=== PATIENT | female | born 1975 | race Caucasian/White ===

== ENCOUNTER 2017-11-18 22:15 | Emergency (ER) | payer SELFPAY ==
--- NOTE | 2017-11-18 23:12 | ER ---
Nurse's Notes [facility] Name: Britt Bower Age: 42 yrs Sex: Female : 1975 Arrival Date: 11/18/2017 Time: 22:23 Bed 15 Private MD: Diagnosis: Pain in lower leg;Vomiting, unspecified;Unspecified abdominal pain Presentation: 11/18 22:24 Presenting complaint: Patient states: R lower back and L leg pain since earlier today. aa1 States, "Earlier when I peed it felt like I got hit in my kidney with a board." Also reports vomiting earlier. Transition of care: patient was not received from another setting of care. Onset of symptoms was November 18, 2017. Initial Sepsis Screen: Does the patient meet any 2 criteria? No. Patient's initial sepsis screen is negative. Initial Sepsis Screen: Does the patient have a suspected source of infection? No. Patient's initial sepsis screen is negative. Care prior to arrival: None. 22:24 Method Of Arrival: Ambulatory aa1 22:24 Acuity: [facility] 3 aa1 Triage Assessment: 22:28 General: Appears in no apparent distress. comfortable, Behavior is calm, cooperative, aa1 appropriate for age. 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 for Neuropathic Pain [Active]; Humulin aa1 70/30 100 unit/mL (70-30) Sub-Q tab 10 units twice a day for Type 2 Diabetes Mellitus [Active]; levetiracetam 500 mg Oral tab 1 tab 2 times per day for Tonic-Clonic Epilepsy Treatment Adjunct [Active]; lisinopril-hydrochlorothiazide 20-25 mg Oral tab 1 tab once daily for Hypertension [Active]; - PMHx: 22:28 CVA; Diabetes - IDDM; E Coli Infection to Right Leg; High Cholesterol; Hypertension; aa1 neuropathy; Seizures; - PSHx: 22:28 Hysterectomy; ; Cholecystectomy; aa1 - Immunization history:: Flu vaccine is not up to date. - Social history:: Smoking status: Patient/guardian denies using tobacco. Screenin:20 Fall Risk Ambulatory [facility]-. mg2 23:38 Abuse screen: Denies threats or abuse. Nutritional screening: No deficits noted. mg2 Tuberculosis screening: No symptoms or risk factors identified. Assessment: 23:15 General: Appears in no apparent distress. comfortable. Pain: Complains of pain in right mg2 leg and left leg Pain does not radiate. Pain level that patient reports is acceptable is 3 out of 10 on a pain scale. Quality of pain is described as aching. Neuro: Level of Consciousness is awake, alert, Oriented to person, place, time. Cardiovascular: Capillary refill < 3 seconds Patient's skin is warm and dry. Respiratory: Airway is patent Respiratory effort is even, unlabored, Respiratory pattern is regular, symmetrical. GI: No signs and/or symptoms were reported involving the gastrointestinal system. : No signs and/or symptoms were reported regarding the genitourinary system. EENT: No signs and/or symptoms were reported regarding the EENT system. Musculoskeletal: Capillary refill < 3 seconds, tenderness. 23:15 Derm: Skin is pink, warm \\T\\ dry. normal. mg2 Vital Signs: 22:28 BP 109 / 83; Pulse 96; Resp 18; Temp 97.8; Pulse Ox 97% on R/A; Weight 96.16 kg; Height aa1 5 ft. 1 in. (154.94 cm); Pain 10/10; 22:28 Body Mass Index 40.06 (96.16 kg, 154.94 cm) aa1 ED Course: 22:23 Patient arrived in ED. aa1 22:26 Triage completed. aa1 22:28 Arm band placed on left wrist. Patient placed in waiting room, Patient notified of wait aa1 time. 23:00 Eryn Zhou FNP-C [facility]. snw 23:00 Dontae López MD is Attending Physician. snw 23:16 Rafi Cooney RN is Primary Nurse. mg2 23:20 Patient has correct armband on for positive identification. Bed in low position. Call mg2 light in reach. Side rails up X 1. 23:20 No provider procedures requiring assistance completed. mg2 23:20 Patient did not have IV access during this emergency room visit. mg2 Administered Medications: 23:20 Drug: Flexeril 10 mg Route: PO; mg2 23:35 Follow up: Response: No adverse reaction; Medication administered at discharge. mg2 23:20 Drug: Phenergan 25 mg Route: PO; mg2 23:35 Follow up: Response: No adverse reaction; Medication administered at discharge. mg2 Outcome: 23:11 Discharge ordered by MD. alegria 23:32 Discharged to home ambulatory, via wheelchair, with family. mg2 23:32 Condition: stable 23:32 Discharge instructions given to patient, family, Instructed on discharge instructions, follow up and referral plans. Demonstrated understanding of instructions, follow-up care, medications, Prescriptions given X 2. 23:35 Patient left the ED. mg2 Signatures: Laurita Miramontes RN RN aa1 Eryn Zhou, METAL FILER-C METAL FILER-Csnw Rafi Cooney RN RN mg2 Corrections: (The following items were deleted from the chart) 11/19 22:15 General: Appears in no apparent distress. comfortable, mg2 mg2 11/19 22:15 Pain: Complains of pain in right leg and left leg Pain does not radiate. mg2 Pain level that patient reports is acceptable is 3 out of 10 on a pain scale. Quality of pain is described as aching, mg2 11/19 22:15 Neuro: Level of Consciousness is awake, alert, Oriented to person, place, mg2 time, mg2 11/19 22:15 Cardiovascular: Capillary refill < 3 seconds Patient's skin is warm and mg2 dry. mg2 11/19 01:11/18 22:15 Respiratory: Airway is patent Respiratory effort is even, unlabored, mg2 Respiratory pattern is regular, symmetrical, mg2 11/19 22:15 GI: No signs and/or symptoms were reported involving the gastrointestinal mg2 system. mg2 11/19 22:15 : No signs and/or symptoms were reported regarding the genitourinary mg2 system. mg2 11/19 22:15 EENT: No signs and/or symptoms were reported regarding the EENT system. mg2 mg2 11/19 22:15 Derm: Skin is pink, warm \\T\\ dry. normal, mg2 mg2 11/19 02:27 11/18 22:15 Musculoskeletal: Capillary refill < 3 seconds, tenderness mg2 mg2
--- NOTE | 2017-11-18 23:12 | EDPHYS ---
Physician Documentation [facility] Name: Britt Bower Age: 42 yrs Sex: Female : 1975 Arrival Date: 11/18/2017 Time: 22:23 Bed 15 Private MD: ED Physician Dontae López HPI: 11/18 23:43 This 42 yrs old Female presents to ER via Ambulatory with complaints of Leg snw Pain, Back Pain. 23:43 The patient presents with swelling, tenderness. The complaints affect the left leg and snw right leg. Context: The problem was sustained at home, the patient can fully bear weight, the patient is able to ambulate, Problem is a result from a previous injury: No. Onset: The symptoms/episode began/occurred suddenly. Modifying factors: The symptoms are alleviated by nothing. Associated signs and symptoms: The patient has no apparent associated signs or symptoms. Treatment prior to arrival includes: recently saw PCP, increased doses of all medications except Lisinopril. Severity of symptoms: At their worst the symptoms were moderate, severe. The patient has experienced similar episodes in the past. The patient has been recently seen by a physician: the patient's primary care provider, with similar presenting complaints. 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 for Neuropathic Pain [Active]; Humulin aa1 70/30 100 unit/mL (70-30) Sub-Q tab 10 units twice a day for Type 2 Diabetes Mellitus [Active]; levetiracetam 500 mg Oral tab 1 tab 2 times per day for Tonic-Clonic Epilepsy Treatment Adjunct [Active]; lisinopril-hydrochlorothiazide 20-25 mg Oral tab 1 tab once daily for Hypertension [Active]; - PMHx: 22:28 CVA; Diabetes - IDDM; E Coli Infection to Right Leg; High Cholesterol; Hypertension; aa1 neuropathy; Seizures; - PSHx: 22:28 Hysterectomy; ; Cholecystectomy; aa1 - Immunization history:: Flu vaccine is not up to date. - Social history:: Smoking status: Patient/guardian denies using tobacco. ROS: 23:41 Constitutional: Negative for fever, chills, and weight loss, Eyes: Negative for injury, snw pain, redness, and discharge, ENT: Negative for injury, pain, and discharge, Neck: Negative for injury, pain, and swelling, Cardiovascular: Negative for chest pain, palpitations, and edema, Respiratory: Negative for shortness of breath, cough, wheezing, and pleuritic chest pain. 23:41 Back: Negative for injury and pain. 23:41 Abdomen/GI: Positive for nausea and vomiting. 23:41 : Positive for "feels like I was kicked in the crotch". 23:41 MS/extremity: Positive for swelling, of the right leg and left leg. Exam: 23:41 Constitutional: This is a well developed, well nourished patient who is awake, alert, snw and in no acute distress. Head/Face: Normocephalic, atraumatic. Eyes: Pupils equal round and reactive to light, extra-ocular motions intact. Lids and lashes normal. Conjunctiva and sclera are non-icteric and not injected. Cornea within normal limits. Periorbital areas with no swelling, redness, or edema. ENT: Nares patent. No nasal discharge, no septal abnormalities noted. Tympanic membranes are normal and external auditory canals are clear. Oropharynx with no redness, swelling, or masses, exudates, or evidence of obstruction, uvula midline. Mucous membranes moist. Neck: Trachea midline, no thyromegaly or masses palpated, and no cervical lymphadenopathy. Supple, full range of motion without nuchal rigidity, or vertebral point tenderness. No Meningismus. Chest/axilla: Normal chest wall appearance and motion. Nontender with no deformity. No lesions are appreciated. Cardiovascular: Regular rate and rhythm with a normal S1 and S2. No gallops, murmurs, or rubs. Normal PMI, no JVD. No pulse deficits. Respiratory: Lungs have equal breath sounds bilaterally, clear to auscultation and percussion. No rales, rhonchi or wheezes noted. No increased work of breathing, no retractions or nasal flaring. Abdomen/GI: Soft, non-tender, with normal bowel sounds. No distension or tympany. No guarding or rebound. No evidence of tenderness throughout. Back: No spinal tenderness. No costovertebral tenderness. Full range of motion. Skin: Warm, dry with normal turgor. Normal color with no rashes, no lesions, and no evidence of cellulitis. MS/ Extremity: Pulses equal, no cyanosis. Neurovascular intact. Full, normal range of motion. Neuro: Awake and alert, GCS 15, oriented to person, place, time, and situation. Cranial nerves II-XII grossly intact. Motor strength 5/5 in all extremities. Sensory grossly intact. Cerebellar exam normal. Normal gait. Vital Signs: 22:28 BP 109 / 83; Pulse 96; Resp 18; Temp 97.8; Pulse Ox 97% on R/A; Weight 96.16 kg; Height aa1 5 ft. 1 in. (154.94 cm); Pain 10/10; 22:28 Body Mass Index 40.06 (96.16 kg, 154.94 cm) aa1 MDM: 23:08 Patient medically screened. [facility] 23:42 Data reviewed: vital signs, nurses notes. Data interpreted: Pulse oximetry: on room air snw is 97 %. Interpretation: normal. Counseling: I had a detailed discussion with the patient and/or guardian regarding: the historical points, exam findings, and any diagnostic results supporting the discharge/admit diagnosis, the need for outpatient follow up, to return to the emergency department if symptoms worsen or persist or if there are any questions or concerns that arise at home. Special discussion: Based on the history and exam findings, there is no indication for further emergent testing or inpatient evaluation. I discussed with the patient/guardian the need to see the primary care provider for further evaluation of the symptoms. 23:46 ED course: Discussed with pt that Neurontin can cause pedal edema. . snw 11/18 22:40 Order name: Urine Dipstick--Ancillary (enter results); Complete Time: 23:35 rg2 Administered Medications: 23:20 Drug: Flexeril 10 mg Route: PO; mg2 23:35 Follow up: Response: No adverse reaction; Medication administered at discharge. mg2 23:20 Drug: Phenergan 25 mg Route: PO; mg2 23:35 Follow up: Response: No adverse reaction; Medication administered at discharge. mg2 Disposition: 11/19 08:19 Co-signature as Attending Physician, Dontae López MD I agree with the assessment and [facility] plan of care. Disposition: 11/18/17 23:11 Discharged to Home. Impression: Pain in lower leg, Vomiting, unspecified, Unspecified abdominal pain. - Condition is Stable. - Discharge Instructions: Abdominal Pain, Adult, Leg Cramps, Lumbosacral Radiculopathy, Nausea and Vomiting. - Prescriptions for Cyclobenzaprine 10 mg Oral Tablet - take 1 tablet by ORAL route every 8 hours As needed; 30 tablet. promethazine 25 mg Oral Tablet - take 1 tablet by ORAL route every 6 hours As needed; 20 tablet. - Medication Reconciliation Form, Thank You Letter, Antibiotic Education, Prescription Opioid Use, Work release form form. - Follow up: Private Physician; When: 2 - 3 days; Reason: Recheck today's complaints, Continuance of care, Re-evaluation by your physician. Follow up: Emergency Department; When: As needed; Reason: Worsening of condition. Signatures: Dispatcher [employer] EDLaurita Lara, RN RN aa1 Dontae López MD MD cha Therrien, Shelly, CASE MONITOR-C CASE MONITOR-Csnw Rafi Cooney RN RN mg2 Corrections: (The following items were deleted from the chart) 11/18 23:35 23:11 11/18/2017 23:11 Discharged to Home. Impression: Pain in lower leg; Vomiting, mg2 unspecified; Unspecified abdominal pain. Condition is Stable. Forms are Medication Reconciliation Form, Thank You Letter, Antibiotic Education, Prescription Opioid Use. Follow up: Private Physician; When: 2 - 3 days; Reason: Recheck today's complaints, Continuance of care, Re-evaluation by your physician. Follow up: Emergency Department; When: As needed; Reason: Worsening of condition. snw
[2017-11-18] MEDS ORDERED: CYCLOBENZAPRINE 10 MG TAB ONE (23:18)
[2017-11-18] MEDS ORDERED: PROMETHAZINE 25 MG TABLET ONE (23:19)
[2017-11-18 23:28] LABS: Urine Blood NEGATIVE (NEG); Urine Glucose NEGATIVE (NEG); Urine Protein NEGATIVE (NEG)
[2017-11-18 23:42] VITALS: BP 109/83; TEMP 97.8; O2SAT 97
== END 2017-11-18 23:35 | disposition home or self-care (01) ==
LOC: ER 22:15
DX: M79.605 Pain in left leg (principal); R10.9 Unspecified abdominal pain; R11.10 Vomiting, unspecified; E11.9 Type 2 diabetes mellitus without complications; I10 Essential (primary) hypertension; Z88.0 Allergy status to penicillin; Z88.6 Allergy status to analgesic agent; Z91.09 Other allergy status, other than to drugs and biological substances; Z88.1 Allergy status to other antibiotic agents
CPT/HCPCS: 81003; 99283

== ENCOUNTER 2017-11-28 18:36 | Emergency (ER) | payer SELFPAY ==
--- OUTSIDE RECORDS SUMMARY | 2017-11-28 18:39 | XMS REPORT ---
:1975 Author Organization [employer] Care Team Providers Name Role Phone Jackelyn Hunt Provider Role Unavailable Allergies, Adverse Reactions, Alerts Substance Reaction Event Type penicillin anaphylaxis Drug Allergy Zofran anaphylaxis Drug Allergy Iodine anaphylaxis Drug Allergy Diazepam anaphylaxis Drug Allergy Aspirin anaphylaxis Drug Allergy Problems Problem Type Condition Code Onset Dates Condition Status Assessment Epilepsy G40.909 Active Problem Secondary diabetes with peripheral E13.42 Active neuropathy Assessment Dysuria R30.0 Active Assessment Secondary diabetes with peripheral E13.42 Active neuropathy Assessment Diabetes type 2, controlled E11.9 Active Problem Diabetes type 2, controlled E11.9 Active Problem Mixed hyperlipidemia E78.2 Active Problem Morbid obesity E66.01 Active Problem Other specified diabetes mellitus E13.42 Active with diabetic polyneuropathy Problem Ulcerative colitis K51.90 Active Problem Epilepsy G40.909 Active Problem Accelerated essential hypertension I10 Active Medications Medication Code Code Instructions Start End Status Dosage System Date Date ProAir HFA [facility] [id number] 108 (90 Base) Jul 26, Active 2 puffs as MCG/ACT 2018 needed Inhalation every 6 hrs Keppra ND 25913266582 500 MG Orally Aug 17, Active 2 tablets every 12 hrs 2018 HumuLIN 70/30 ND 09654099074 (70-30) 100 Jul 26, Active 10 units KwikPen UNIT/ML 2016 Subcutaneous bid Flonase ND 96500641561 50 MCG/ACT Jul 26, Active 2 spray in Nasally Once a 2017 each day nostril Bentyl ND 09081508761 20 MG Orally November 21, Active 1 tablet Four times a 2018 day Gabapentin ND 01918497050 300 MG Orally Jul 26, Active 2 capsule Three times a 2018 before day bedtime Zestoretic ND 30182095441 20-25 MG Orally Jul 26, Active 1 tablet Once a day 2016 Promethazine HCl ND 78290429354 50 MG Orally November 21, Active 1 tablet every 6 hrs 2016 as needed Tylenol # 3 NDC 0 300/30mg PO November 21, Active 1-2 tabs every 6 hrs. 2018 Results Name Result Date Reference Range Unit Abnormality Flag URINALYSIS AUTO W/O SCOPE ([id number]) ----NIT N 20171113 ----URO 0.2 20171113 ----PROTEIN 1+ 20171113 ----pH 5.5 20171113 ----BLO N 20171113 ----GLUCOSE N 20171113 ----ALBERTO N 20171113 ----BILIRUBIN 1+ 20171113 ----KETONES N 20171113 ----SPECIFIC GRAVITY >=1.030 20171113 Summary Purpose [employer] Submission
[2017-11-28 20:13] LABS: Urine Blood NEGATIVE (NEG); Urine Glucose NEGATIVE (NEG); Urine Protein NEGATIVE (NEG); Urine Specific Gravity 1.015 (1.005-1.030); Urine pH 5.5 (5.0-7.0)
[2017-11-28 20:26] LABS: Urine RBC <5 /HPF (NONE SEEN)
[2017-11-28] MEDS ORDERED: PROMETHAZINE HCL 50 MG/ML AMP IM ONE (20:26)
[2017-11-28 20:27] LABS: Urine Bacteria 20-50 /HPF (<20); Urine Culture Reflex Order NOT NEEDED
--- NOTE | 2017-11-28 20:40 | EDPHYS ---
Physician Documentation [facility] Name: Britt Bower Age: 42 yrs Sex: Female : 1975 Arrival Date: 11/28/2017 Time: 18:39 Bed 13 Private MD: ED Physician Niki Chiu HPI: 11/28 21:18 This 42 yrs old Female presents to ER via Ambulatory with complaints of snw Vomiting, Headache. 21:18 The patient presents to the emergency department with nausea. Onset: The snw symptoms/episode began/occurred acutely. Possible causes: unknown, pt states she had a "small seizure" last pm. The symptoms are aggravated by nothing. Associated signs and symptoms: The patient has no apparent associated signs or symptoms. Severity of symptoms: At their worst the symptoms were mild. The patient has experienced similar episodes in the past. It is unknown whether or not the patient has recently seen a physician. 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 for Neuropathic Pain [Active]; Humulin ao 70/30 100 unit/mL (70-30) Sub-Q tab 10 units twice a day for Type 2 Diabetes Mellitus [Active]; lisinopril-hydrochlorothiazide 20-25 mg Oral tab 1 tab once daily for Hypertension [Active]; levetiracetam 500 mg Oral tab 1 tab 2 times per day for Tonic-Clonic Epilepsy Treatment Adjunct [Active]; - PMHx: 18:45 CVA; E Coli Infection to Right Leg; Diabetes - IDDM; High Cholesterol; Hypertension; la1 neuropathy; Seizures; - Immunization history:: Adult Immunizations up to date. - Social history:: Smoking status: Patient/guardian denies using tobacco. ROS: 21:18 Constitutional: Negative for fever, chills, and weight loss, Eyes: Negative for injury, snw pain, redness, and discharge, ENT: Negative for injury, pain, and discharge, Neck: Negative for injury, pain, and swelling, Cardiovascular: Negative for chest pain, palpitations, and edema, Respiratory: Negative for shortness of breath, cough, wheezing, and pleuritic chest pain, Abdomen/GI: Negative for abdominal pain, nausea, vomiting, diarrhea, and constipation, Back: Negative for injury and pain, : Negative for injury, bleeding, discharge, and swelling, MS/Extremity: Negative for injury and deformity, Skin: Negative for injury, rash, and discoloration. 21:18 Neuro: Positive for headache. Exam: 21:18 Constitutional: This is a well developed, well nourished patient who is awake, alert, snw and in no acute distress. Head/Face: Normocephalic, atraumatic. Eyes: Pupils equal round and reactive to light, extra-ocular motions intact. Lids and lashes normal. Conjunctiva and sclera are non-icteric and not injected. Cornea within normal limits. Periorbital areas with no swelling, redness, or edema. ENT: Nares patent. No nasal discharge, no septal abnormalities noted. Tympanic membranes are normal and external auditory canals are clear. Oropharynx with no redness, swelling, or masses, exudates, or evidence of obstruction, uvula midline. Mucous membranes moist. Neck: Trachea midline, no thyromegaly or masses palpated, and no cervical lymphadenopathy. Supple, full range of motion without nuchal rigidity, or vertebral point tenderness. No Meningismus. Chest/axilla: Normal chest wall appearance and motion. Nontender with no deformity. No lesions are appreciated. Cardiovascular: Regular rate and rhythm with a normal S1 and S2. No gallops, murmurs, or rubs. Normal PMI, no JVD. No pulse deficits. Respiratory: Lungs have equal breath sounds bilaterally, clear to auscultation and percussion. No rales, rhonchi or wheezes noted. No increased work of breathing, no retractions or nasal flaring. Abdomen/GI: Soft, non-tender, with normal bowel sounds. No distension or tympany. No guarding or rebound. No evidence of tenderness throughout. Back: No spinal tenderness. No costovertebral tenderness. Full range of motion. Skin: Warm, dry with normal turgor. Normal color with no rashes, no lesions, and no evidence of cellulitis. MS/ Extremity: Pulses equal, no cyanosis. Neurovascular intact. Full, normal range of motion. Neuro: Awake and alert, GCS 15, oriented to person, place, time, and situation. Cranial nerves II-XII grossly intact. Motor strength 5/5 in all extremities. Sensory grossly intact. Cerebellar exam normal. Normal gait. Vital Signs: 18:45 BP 119 / 71; Pulse 84; Resp 16; Temp 97.3; Pulse Ox 100% on R/A; Weight 96.16 kg; la1 Height 5 ft. 4 in. (162.56 cm); 20:32 BP 103 / 77; Pulse 67; Resp 18; Pulse Ox 98% on R/A; ao 21:03 BP 94 / 58; Pulse 66; Resp 18; Pulse Ox 99% on R/A; ao 18:45 Body Mass Index 36.39 (96.16 kg, 162.56 cm) la1 MDM: 19:24 Patient medically screened. snw 21:19 Data reviewed: vital signs, nurses notes. Data interpreted: Pulse oximetry: on room air snw is 99 %. Interpretation: normal. Counseling: I had a detailed discussion with the patient and/or guardian regarding: the historical points, exam findings, and any diagnostic results supporting the discharge/admit diagnosis, lab results, the need for outpatient follow up, to return to the emergency department if symptoms worsen or persist or if there are any questions or concerns that arise at home. Special discussion: Based on the history and exam findings, there is no indication for further emergent testing or inpatient evaluation. I discussed with the patient/guardian the need to see the primary care provider for further evaluation of the symptoms. 11/28 19:41 Order name: Urine Culture [facility] 11/28 19:41 Order name: Urine Microscopic Only; Complete Time: 20:38 [facility] 11/28 19:52 Order name: Urine Dipstick--Ancillary (enter results) [facility] 11/28 19:52 Order name: Urine --Ancillary (enter results) [facility] 11/28 19:54 Order name: Urine Dipstick-Ancillary; Complete Time: 20:21 [facility] 11/28 19:54 Order name: Urine --Ancillary; Complete Time: 20:21 [facility] 11/28 19:41 Order name: Urine Test (obtain specimen); Complete Time: 19:49 snw 11/28 19:41 Order name: Urine Dipstick-Ancillary (obtain specimen); Complete Time: 19:49 snw Administered Medications: 20:31 Drug: Phenergan 25 mg Route: IM; Site: right deltoid; ao 21:02 Follow up: Response: No adverse reaction ao 21:01 Drug: Macrobid 100 mg Route: PO; ao 21:02 Follow up: Response: Medication administered at discharge. ao 21:01 Drug: Cipro 500 mg Route: PO; ao 21:02 Follow up: Response: Medication administered at discharge. ao Disposition: 11/29 01:53 Co-signature as Attending Physician, Niki Chiu MD. ma2 Disposition: 11/28/17 20:39 Discharged to Home. Impression: Headache, Urinary tract infection, site not specified. - Condition is Stable. - Discharge Instructions: General Headache Without Cause, Urinary Tract Infection. - Prescriptions for Macrobid 100 mg Oral Capsule - take 1 capsule by ORAL route every 12 hours for 10 days; 20 capsule. Cipro 500 mg Oral Tablet - take 1 tablet by ORAL route every 12 hours for 7 days; 14 tablet. promethazine 25 mg Oral Tablet - take 1 tablet by ORAL route every 6 hours As needed; 10 tablet. - Work release form, Medication Reconciliation Form, Thank You Letter, Antibiotic Education, Prescription Opioid Use form. - Follow up: Private Physician; When: 2 - 3 days; Reason: Recheck today's complaints, Continuance of care, Re-evaluation by your physician. Follow up: Emergency Department; When: As needed; Reason: Worsening of condition. Signatures: Dispatcher [facility] Eryn Zhou, YI-C MANAGER ER-Csnw Leo Kirby RN RN Neptali Norwood RN Niki Ding MD MD ma2 Corrections: (The following items were deleted from the chart) 11/28 21:04 20:39 11/28/2017 20:39 Discharged to Home. Impression: Headache; Urinary tract ao infection, site not specified. Condition is Stable. Forms are Medication Reconciliation Form, Thank You Letter, Antibiotic Education, Prescription Opioid Use. Follow up: Private Physician; When: 2 - 3 days; Reason: Recheck today's complaints, Continuance of care, Re-evaluation by your physician. Follow up: Emergency Department; When: As needed; Reason: Worsening of condition. snw
--- NOTE | 2017-11-28 20:40 | ER ---
Nurse's Notes [facility] Name: Britt Bower Age: 42 yrs Sex: Female : 1975 Arrival Date: 11/28/2017 Time: 18:39 Bed 13 Private MD: Diagnosis: Headache;Urinary tract infection, site not specified Presentation: 11/28 18:44 Presenting complaint: Patient states: I had a light sz last night and since then I have la1 a very bad headache, nausea, vomiting. Transition of care: patient was not received from another setting of care. Onset of symptoms was November 28, 2017. Initial Sepsis Screen: Does the patient meet any 2 criteria? No. Patient's initial sepsis screen is negative. Does the patient have a suspected source of infection? No. Patient's initial sepsis screen is negative. Care prior to arrival: None. 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 for Neuropathic Pain [Active]; Humulin ao 70/30 100 unit/mL (70-30) Sub-Q tab 10 units twice a day for Type 2 Diabetes Mellitus [Active]; lisinopril-hydrochlorothiazide 20-25 mg Oral tab 1 tab once daily for Hypertension [Active]; levetiracetam 500 mg Oral tab 1 tab 2 times per day for Tonic-Clonic Epilepsy Treatment Adjunct [Active]; - PMHx: 18:45 CVA; E Coli Infection to Right Leg; Diabetes - IDDM; High Cholesterol; Hypertension; la1 neuropathy; Seizures; - Immunization history:: Adult Immunizations up to date. - Social history:: Smoking status: Patient/guardian denies using tobacco. Screenin:21 Abuse screen: Denies threats or abuse. Denies injuries from another. Nutritional ao screening: No deficits noted. Tuberculosis screening: No symptoms or risk factors identified. Fall Risk None identified. Assessment: 19:18 General: Appears in no apparent distress. comfortable, Behavior is cooperative. Pain: ao Complains of pain in abdomen. Neuro: Level of Consciousness is awake, alert, obeys commands, Oriented to person, place, time, situation, Contract Designer are equal bilaterally Moves all extremities. Speech is normal, Facial symmetry appears normal, Pupils are PERRLA. Neuro: Reports headache weakness Seizure activity last night. Cardiovascular: Capillary refill < 3 seconds Patient's skin is warm and dry. Respiratory: Airway is patent Respiratory effort is even, unlabored, Respiratory pattern is regular, symmetrical, Breath sounds are clear bilaterally. GI: Abdomen is obese, Bowel sounds present X 4 quads. : No signs and/or symptoms were reported regarding the genitourinary system. EENT: No signs and/or symptoms were reported regarding the EENT system. Derm: No signs and/or symptoms reported regarding the dermatologic system. Musculoskeletal: No signs and/or symptoms reported regarding the musculoskeletal system. 20:32 Reassessment: Patient appears in no apparent distress at this time. Patient and/or ao family updated on plan of care and expected duration. Pain level reassessed. Patient is alert, oriented x 3, equal unlabored respirations, skin warm/dry/pink. Vital Signs: 18:45 BP 119 / 71; Pulse 84; Resp 16; Temp 97.3; Pulse Ox 100% on R/A; Weight 96.16 kg; la1 Height 5 ft. 4 in. (162.56 cm); 20:32 BP 103 / 77; Pulse 67; Resp 18; Pulse Ox 98% on R/A; ao 21:03 BP 94 / 58; Pulse 66; Resp 18; Pulse Ox 99% on R/A; ao 18:45 Body Mass Index 36.39 (96.16 kg, 162.56 cm) la1 ED Course: 18:39 Patient arrived in ED. mr 18:45 Triage completed. la1 19:06 Neptali Meng, RN is Primary Nurse. ao 19:21 Arm band placed on right wrist. Patient placed in an exam room. ao 19:21 Patient has correct armband on for positive identification. Pulse ox on. NIBP on. ao 19:23 Eryn Zhou FNP-C is PHCP. snw 19:23 Niki Chiu MD is Attending Physician. snw 21:02 No provider procedures requiring assistance completed. Patient did not have IV access ao during this emergency room visit. Administered Medications: 20:31 Drug: Phenergan 25 mg Route: IM; Site: right deltoid; ao 21:02 Follow up: Response: No adverse reaction ao 21:01 Drug: Macrobid 100 mg Route: PO; ao 21:02 Follow up: Response: Medication administered at discharge. ao 21:01 Drug: Cipro 500 mg Route: PO; ao 21:02 Follow up: Response: Medication administered at discharge. ao Outcome: 20:39 Discharge ordered by . snw 21:03 Discharged to home ambulatory. ao 21:03 Condition: stable 21:03 Discharge instructions given to patient, Instructed on discharge instructions, follow up and referral plans. Demonstrated understanding of instructions, follow-up care, medications, Prescriptions given X 3. 21:04 Patient left the ED. ao Signatures: Eryn Zhou, MANAGER DRILLING-C MANAGER DRILLING-CsnJunie Nance Lee RN RN la1 Neptali Meng RN RN ao
[2017-11-28] MEDS ORDERED: CIPROFLOXACIN HCL 500 MG TAB ONE (20:53)
[2017-11-28] MEDS ORDERED: NITROFURAN MACRO 100 MG CAP PO ONE (20:53)
[2017-11-28 21:17] VITALS: TEMP 97.3
[2017-11-28 21:18] VITALS: BP 94/58; O2SAT 99
== END 2017-11-28 21:04 | disposition home or self-care (01) ==
LOC: ER 18:36
DX: N39.0 Urinary tract infection, site not specified (principal); I10 Essential (primary) hypertension; E11.9 Type 2 diabetes mellitus without complications; G40.909 Epilepsy, unspecified, not intractable, without status epilepticus; Z79.4 Long term (current) use of insulin; Z88.0 Allergy status to penicillin; Z88.1 Allergy status to other antibiotic agents; Z88.5 Allergy status to narcotic agent; Z88.6 Allergy status to analgesic agent; Z88.8 Allergy status to other drugs, medicaments and biological substances
CPT/HCPCS: 81003; 81015; 81025; 87086; 87088; 96372; 99283; J2550

== ENCOUNTER 2017-12-02 14:52 | Emergency (ER) | payer SELFPAY ==
--- OUTSIDE RECORDS SUMMARY | 2017-12-02 14:54 | XMS REPORT ---
[...] Status Dosage System Date Date ProAir HFA [facility] [id number] 108 (90 Base) Jul 26, Active 2 puffs as MCG/ACT 2018 needed Inhalation every 6 hrs Keppra ND 20293113100 500 MG Orally Aug 17, Active 2 tablets every 12 hrs 2018 HumuLIN 70/30 ND 92325916566 (70-30) 100 Jul 26, Active 10 units KwikPen UNIT/ML 2016 Subcutaneous bid Flonase ND 73048224660 50 MCG/ACT Jul 26, Active 2 spray in Nasally Once a 2017 each day nostril Bentyl ND 75204563545 20 MG Orally November 21, Active 1 tablet Four times a 2018 day Gabapentin ND 11400976603 300 MG Orally Jul 26, Active 2 capsule Three times a 2018 before day bedtime Zestoretic ND 40042761245 20-25 MG Orally Jul 26, Active 1 tablet Once a day 2016 Promethazine HCl ND 46479961036 50 MG Orally November 21, Active 1 tablet every 6 hrs 2016 as needed Tylenol # 3 NDC 0 300/30mg PO November 21, Active 1-2 tabs every 6 hrs. 2018 Results Name Result Date Reference Range Unit Abnormality Flag URINALYSIS AUTO W/O SCOPE (11632) ----NIT N 20171113 ----URO 0.2 20171113 ----PROTEIN 1+ 20171113 ----pH 5.5 20171113 ----BLO N 20171113 ----GLUCOSE N 20171113 ----ALBERTO N 20171113 ----BILIRUBIN 1+ 20171113 ----KETONES N 20171113 ----SPECIFIC GRAVITY >=1.030 20171113 Summary Purpose eClinicalWorks Submission
[2017-12-02 15:38] LABS: Urine Blood NEGATIVE (NEG); Urine Glucose NEGATIVE (NEG); Urine Protein NEGATIVE (NEG); Urine pH 5.5 (5.0-7.0)
[2017-12-02] MEDS ORDERED: HYDROCODONE/APAP 7.5/325 MG TAB ONE ×2 (15:48→16:38)
[2017-12-02] MEDS ORDERED: DIPHENHYDRAMINE 25 MG TAB/CAP ONE (17:03)
--- NOTE | 2017-12-02 17:57 | EDPHYS ---
Physician Documentation [facility] Name: Britt Bower Age: 42 yrs Sex: Female : 1975 Arrival Date: 12/02/2017 Time: 14:56 Bed 30 Private MD: CHARISSE CORDOBA ED Physician Adam Peterson HPI: 12/02 15:08 This 42 yrs old Female presents to ER via Ambulatory with complaints of Leg kav Pain, Foot Pain, Urinary Problem. 15:42 The patient presents with flank pain, on the left, urinary symptoms, frequency, urgency.kav 15:46 Onset: The symptoms/episode began/occurred acutely, 1 day(s) ago. Modifying factors: kav The symptoms are alleviated by nothing, the symptoms are aggravated by nothing. Severity of symptoms: At their worst the symptoms were severe, just prior to arrival, in the emergency department the symptoms are unchanged. The patient has experienced similar episodes in the past, chronically, and the symptoms today are exactly the same. patient c/o h/a rated at 8/10; ble swelling - no edema to bilateral lower extremities, pedal pulse 2+ bilaterally and no swelling bilaterally; also c/o urinary type sx: urgency and burning w/ associated left flank pain. denies hematuria, fever/chills, n/v/d. 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 for Neuropathic Pain [Active]; Humulin aj 70/30 100 unit/mL (70-30) Sub-Q tab 10 units twice a day for Type 2 Diabetes Mellitus [Active]; levetiracetam 500 mg Oral tab 1 tab 2 times per day for Tonic-Clonic Epilepsy Treatment Adjunct [Active]; lisinopril-hydrochlorothiazide 20-25 mg Oral tab 1 tab once daily for Hypertension [Active]; - PMHx: 15:07 CVA; Diabetes - IDDM; E Coli Infection to Right Leg; High Cholesterol; Hypertension; aj neuropathy; Seizures; - Immunization history:: Adult Immunizations up to date. - Social history:: Smoking status: Patient/guardian denies using tobacco. - History obtained from: . ROS: 15:46 Positive for urinary symptoms, burning with urination. kav 15:46 Constitutional: Negative for fever, chills, and weight loss, Eyes: Negative for injury, pain, redness, and discharge, ENT: Negative for injury, pain, and discharge, Neck: Negative for injury, pain, and swelling, Cardiovascular: Negative for chest pain, palpitations, and edema, Respiratory: Negative for shortness of breath, cough, wheezing, and pleuritic chest pain, Abdomen/GI: Negative for abdominal pain, nausea, vomiting, diarrhea, and constipation, Back: Negative for injury and pain, MS/Extremity: Negative for injury and deformity, Skin: Negative for injury, rash, and discoloration, Neuro: Negative for headache, weakness, numbness, tingling, and seizure, Psych: Negative for depression, anxiety, suicide ideation, homicidal ideation, and hallucinations, Allergy/Immunology: Negative for hives, rash, and allergies, Endocrine: Negative for neck swelling, polydipsia, polyuria, polyphagia, and marked weight changes, Hematologic/Lymphatic: Negative for swollen nodes, abnormal bleeding, and unusual bruising. Exam: 15:46 Constitutional: This is a well developed, well nourished patient who is awake, alert, kav and in no acute distress. Head/Face: Normocephalic, atraumatic. Eyes: Pupils equal round and reactive to light, extra-ocular motions intact. Lids and lashes normal. Conjunctiva and sclera are non-icteric and not injected. Cornea within normal limits. Periorbital areas with no swelling, redness, or edema. ENT: Nares patent. No nasal discharge, no septal abnormalities noted. Tympanic membranes are normal and external auditory canals are clear. Oropharynx with no redness, swelling, or masses, exudates, or evidence of obstruction, uvula midline. Mucous membranes moist. Neck: Trachea midline, no thyromegaly or masses palpated, and no cervical lymphadenopathy. Supple, full range of motion without nuchal rigidity, or vertebral point tenderness. No Meningismus. Chest/axilla: Normal chest wall appearance and motion. Nontender with no deformity. No lesions are appreciated. Cardiovascular: Regular rate and rhythm with a normal S1 and S2. No gallops, murmurs, or rubs. Normal PMI, no JVD. No pulse deficits. Respiratory: Lungs have equal breath sounds bilaterally, clear to auscultation and percussion. No rales, rhonchi or wheezes noted. No increased work of breathing, no retractions or nasal flaring. Abdomen/GI: Soft, non-tender, with normal bowel sounds. No distension or tympany. No guarding or rebound. No evidence of tenderness throughout. Back: No spinal tenderness. No costovertebral tenderness. Full range of motion. Skin: Warm, dry with normal turgor. Normal color with no rashes, no lesions, and no evidence of cellulitis. MS/ Extremity: Pulses equal, no cyanosis. Neurovascular intact. Full, normal range of motion. Neuro: Awake and alert, GCS 15, oriented to person, place, time, and situation. Cranial nerves II-XII grossly intact. Motor strength 5/5 in all extremities. Sensory grossly intact. Cerebellar exam normal. Normal gait. Psych: Awake, alert, with orientation to person, place and time. Behavior, mood, and affect are within normal limits. 15:46 : CVA tenderness, on the left. Vital Signs: 15:07 BP 111 / 80; Pulse 99; Resp 17; Temp 97.8; Pulse Ox 96% on R/A; Weight 96.16 kg; Height aj 5 ft. 1 in. (154.94 cm); 17:25 BP 100 / 68; Pulse 72; Resp 17; Pulse Ox 100% on R/A; rk2 18:00 BP 103 / 82; Pulse 78; Resp 17; Pulse Ox 98% on R/A; rk2 15:07 Body Mass Index 40.06 (96.16 kg, 154.94 cm) aj MDM: 15:10 Medical screening is not applicable. kav 15:51 Data reviewed: vital signs, nurses notes, lab test result(s), urinalysis. kav 16:35 ED course: pt continue to c/o headache pain rated at 7/10. kav 16:58 ED course: pt continues to c/o headache rated at 6/10. kav 17:55 ED course: c/o nausea. [facility] 12/02 15:18 Order name: Urine Dipstick--Ancillary (enter results); Complete Time: 15:54 em1 12/02 15:54 Interpretation: Abnormal. [facility] 12/02 15:18 Order name: Urine --Ancillary (enter results); Complete Time: 15:54 em1 12/02 15:54 Interpretation: Within normal limits. [facility] 12/02 15:09 Order name: Urine Dipstick-Ancillary (obtain specimen); Complete Time: 15:17 [facility] 12/02 15:18 Order name: Urine Test (obtain specimen); Complete Time: 15:18 em1 Administered Medications: 15:50 Drug: Halstad (7.5 mg-325 mg) 1 tabs Route: PO; rk2 17:48 Follow up: Response: No adverse reaction; Pain is unchanged, physician notified rk2 16:39 Drug: [place] (7.5 mg-325 mg) 1 tabs Route: PO; rk2 17:48 Follow up: Response: No adverse reaction; Pain is unchanged, physician notified rk2 17:05 Drug: Benadryl 50 mg Route: PO; rk2 17:47 Follow up: Response: No adverse reaction rk2 18:00 Drug: Phenergan 25 mg Route: PO; rk2 18:07 Follow up: given \T\ DC rk2 Disposition: 12/02/17 17:56 Discharged to Home. Impression: Urinary tract infection, site not specified, Headache. - Condition is Stable. - Discharge Instructions: Cluster Headache, Qzaf-[id number]-Luio, Urinary Tract Infection, [id number]-[id number], Antibiotic Use, Kosk-pk-Dtyb. - Prescriptions for Bactrim DS 800- 160 mg Oral Tablet - take 1 tablet by ORAL route every 12 hours for 10 days; 20 tablet. - Medication Reconciliation Form, Thank You Letter, Antibiotic Education, Prescription Opioid Use, Work release form form. - Follow up: CHARISSE CORDOBA; When: 1 - 2 days; Reason: Recheck today's complaints, Continuance of care, Re-evaluation by your physician. - Problem is new. - Symptoms are unchanged. - Notes: please schedule and f/u with your PCP DX: Urinary Tract Infection, Unspecified, Endocrinology DX: Uncontrolled Diabetes Mellitusand Neurology for DX: Headache please continue to take the rx: phenergan prescribed to you on 11/28/17 for nausea Addendum: 12/03/2017 22:23 Co-signature as Attending Physician, Adam Peterson MD I agree with the assessment and k dr plan of care. Signatures: Dispatcher [employer] Beverly, RN RN Adam Olivo MD MD kdr Gladys Kaur, JUNIOR SOFTWARE ENGINEER JUNIOR SOFTWARE ENGINEER Kisha Turner RN RN iw Mitchell Thakkar em1 Shaye Maldonado RN RN rk2 Corrections: (The following items were deleted from the chart) 12/02 18:10 17:56 12/02/2017 17:56 Discharged to Home. Impression: Urinary tract infection, site iw not specified; Headache. Condition is Stable. Discharge Instructions: Urinary Tract Infection, Vlxl-sy-Qvci, Antibiotic Use, Igcn-tb-Fjlf. Prescriptions for Bactrim DS 800-160 mg Oral Tablet - take 1 tablet by ORAL route every 12 hours for 10 days; 20 tablet. and Forms are Medication Reconciliation Form, Thank You Letter, Antibiotic Education, Prescription Opioid Use. Follow up: CHARISSE CORDOBA; When: 1 - 2 days; Reason: Recheck today's complaints, Continuance of care, Re-evaluation by your physician. Problem is new. Symptoms are unchanged. kav
--- NOTE | 2017-12-02 17:57 | ER ---
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 Also reports burning with urination, with ABX for 6 days. Transition of care: patient was not received from another setting of care. Onset of symptoms was December 02, 2017. Care prior to arrival: None. 15:05 Method Of Arrival: Ambulatory aj 15:05 Acuity: [facility] 4 aj 15:51 Initial Sepsis Screen: Does the patient meet any 2 criteria? No. Patient's initial rk2 sepsis screen is negative. Does the patient have a suspected source of infection? No. Patient's initial sepsis screen is negative. Triage Assessment: 15:07 General: Appears in no apparent distress. comfortable, Behavior is calm, cooperative, aj appropriate for age. Pain: Complains of pain in right martinez. Neuro: Level of Consciousness is awake, alert, obeys commands, Oriented to person, place, time, situation, Appropriate for age. Respiratory: Airway is patent Respiratory effort is even, unlabored, Respiratory pattern is regular, symmetrical. Derm: Skin is intact, is healthy with good turgor, Skin is pink, warm \\T\\ dry. normal, Bruising that is brown, on right martinez. Musculoskeletal: Circulation, motion, and sensation intact. Range of motion: intact in all extremities, Swelling absent. 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 for Neuropathic Pain [Active]; Humulin aj 70/30 100 unit/mL (70-30) Sub-Q tab 10 units twice a day for Type 2 Diabetes Mellitus [Active]; levetiracetam 500 mg Oral tab 1 tab 2 times per day for Tonic-Clonic Epilepsy Treatment Adjunct [Active]; lisinopril-hydrochlorothiazide 20-25 mg Oral tab 1 tab once daily for Hypertension [Active]; - PMHx: 15:07 CVA; Diabetes - IDDM; E Coli Infection to Right Leg; High Cholesterol; Hypertension; aj neuropathy; Seizures; - Immunization history:: Adult Immunizations up to date. - Social history:: Smoking status: Patient/guardian denies using tobacco. - History obtained from: . Screenin:51 Abuse screen: Denies threats or abuse. Nutritional screening: No deficits noted. rk2 Tuberculosis screening: No symptoms or risk factors identified. Fall Risk None identified. Assessment: 15:52 General: Appears in no apparent distress. well developed, well nourished, Behavior is rk2 calm, cooperative. Pain: Complains of pain in right leg and right martinez. Neuro: Level of Consciousness is alert, obeys commands, Oriented to person, place, time, situation. Respiratory: Airway is patent Respiratory effort is even, unlabored, Respiratory pattern is regular, symmetrical. Derm: Skin is pink, warm \\T\\ dry. Injury Description: Bruise sustained to right leg and right martinez. 16:30 Reassessment: Pt. resting in room, \\T\\ bedside. No change in her MONATNO. Pt. appears rk2 to be in no obvious distress. No needs voiced. 17:30 Reassessment: Pt. resting in room, appears to be in no obvious distress... no needs rk2 voiced. Pt. denies any change in her MONTANO \\T\\ this time. Vital Signs: 15:07 BP 111 / 80; Pulse 99; Resp 17; Temp 97.8; Pulse Ox 96% on R/A; Weight 96.16 kg; Height aj 5 ft. 1 in. (154.94 cm); 17:25 BP 100 / 68; Pulse 72; Resp 17; Pulse Ox 100% on R/A; rk2 18:00 BP 103 / 82; Pulse 78; Resp 17; Pulse Ox 98% on R/A; rk2 15:07 Body Mass Index 40.06 (96.16 kg, 154.94 cm) ED Course: 14:56 Patient arrived in ED. mr 14:56 CHARISSE CORDOBA is Private Physician. mr 15:06 Triage completed. aj 15:07 Arm band placed on left wrist. Patient placed in waiting room, Patient notified of wait aj time. 15:08 Gladys Kaur FNP [facility]. kav 15:08 Adam Peterson MD is Attending Physician. kav 15:09 Shaye Maldonado, MERRICK is Primary Nurse. rk2 15:51 Patient has correct armband on for positive identification. Placed in gown. Bed in low rk2 position. Call light in reach. 17:56 CHARISSE CORDOBA is Referral Physician. kav 18:13 No provider procedures requiring assistance completed. Patient did not have IV access rk2 during this emergency room visit. Administered Medications: 15:50 Drug: [place] (7.5 mg-325 mg) 1 tabs Route: PO; rk2 17:48 Follow up: Response: No adverse reaction; Pain is unchanged, physician notified rk2 16:39 Drug: [place] (7.5 mg-325 mg) 1 tabs Route: PO; rk2 17:48 Follow up: Response: No adverse reaction; Pain is unchanged, physician notified rk2 17:05 Drug: Benadryl 50 mg Route: PO; rk2 17:47 Follow up: Response: No adverse reaction rk2 18:00 Drug: Phenergan 25 mg Route: PO; rk2 18:07 Follow up: given \\T\\ DC rk2 Intake: Outcome: 17:56 Discharge ordered by MD. kav 18:10 Patient left the ED. iw 18:13 Discharged to home ambulatory. rk2 18:13 Condition: good 18:13 Discharge instructions given to patient, Prescriptions given X 1. Signatures: Pearl Malhotra, RN Gladys Cervantes FNP HOTEL AND DINING ROOM CASHIERJunie Bass mr Kisha Vela, MERRICK SIN iw Shaye Maldonado RN RN rk2
[2017-12-02] MEDS ORDERED: PROMETHAZINE 25 MG TABLET ONE (17:59)
[2017-12-02 18:18] VITALS: TEMP 97.8
[2017-12-02 18:20] VITALS: BP 100/68; O2SAT 100
== END 2017-12-02 18:10 | disposition home or self-care (01) ==
LOC: ER 14:52
DX: N39.0 Urinary tract infection, site not specified (principal); R51 Headache; Z88.1 Allergy status to other antibiotic agents; Z88.6 Allergy status to analgesic agent; Z91.09 Other allergy status, other than to drugs and biological substances; Z88.0 Allergy status to penicillin; I10 Essential (primary) hypertension; E78.00 Pure hypercholesterolemia, unspecified; E11.9 Type 2 diabetes mellitus without complications
CPT/HCPCS: 81003; 81025; 99283

== ENCOUNTER 2017-12-07 13:23 | Emergency (ER) | payer SELFPAY ==
--- OUTSIDE RECORDS SUMMARY | 2017-12-07 13:26 | XMS REPORT ---
[...] Status Dosage System Date Date ProAir HFA [facility] 20714834213 108 (90 Base) Jul 26, Active 2 puffs as MCG/ACT 2018 needed Inhalation every 6 hrs Keppra ND 45248770155 500 MG Orally Aug 17, Active 2 tablets every 12 hrs 2018 HumuLIN 70/30 ND 39430705398 (70-30) 100 Jul 26, Active 10 units KwikPen UNIT/ML 2016 Subcutaneous bid Flonase ND 17449483144 50 MCG/ACT Jul 26, Active 2 spray in Nasally Once a 2017 each day nostril Bentyl ND 86397367779 20 MG Orally November 21, Active 1 tablet Four times a 2018 day Gabapentin ND 05229270671 300 MG Orally Jul 26, Active 2 capsule Three times a 2018 before day bedtime Zestoretic ND 01196068008 20-25 MG Orally Jul 26, Active 1 tablet Once a day 2016 Promethazine HCl ND 05132739770 50 MG Orally November 21, Active 1 tablet every 6 hrs 2016 as needed Tylenol # 3 NDC 0 300/30mg PO November 21, Active 1-2 tabs every 6 hrs. 2018 Results Name Result Date Reference Range Unit Abnormality Flag URINALYSIS AUTO W/O SCOPE (58356) ----NIT N 20171113 ----URO 0.2 20171113 ----PROTEIN 1+ 20171113 ----pH 5.5 20171113 ----BLO N 20171113 ----GLUCOSE N 20171113 ----ALBERTO N 20171113 ----BILIRUBIN 1+ 20171113 ----KETONES N 20171113 ----SPECIFIC GRAVITY >=1.030 20171113 Summary Purpose eClinicalWorks Submission
--- NOTE | 2017-12-07 15:04 | RAD REPORT ---
EXAM DESCRIPTION: VAS - Extremity Venous Uni Ltd - 12/07/2017 2:54 pm CLINICAL HISTORY: Leg swelling and edema. COMPARISON: 03/10/2017 FINDINGS: Right lower extremity venous system was interrogated with Doppler technique. Normal flow, compressibility and augmentation was noted. There is no DVT present. IMPRESSION: No evidence of right lower extremity deep venous thrombosis.
--- NOTE | 2017-12-07 15:29 | EDPHYS ---
Physician Documentation [facility] Name: Britt Bower Age: 42 yrs Sex: Female : 1975 Arrival Date: 12/07/2017 Time: 13:26 Bed 19 Private MD: CHARISSE CORDOBA ED Physician Rm Gilbert HPI: 12/07 15:23 This 42 yrs old Female presents to ER via Ambulatory with complaints of BLOOD gs CLOT. 15:23 The patient presents with pain, that is acute. The complaints affect the right martinez. gs Onset: The symptoms/episode began/occurred 3 day(s) ago, and became persistent. Modifying factors: The symptoms are alleviated by nothing. the symptoms are aggravated by nothing. Associated signs and symptoms: Pertinent positives: calf tenderness, Pertinent negatives numbness. Severity of symptoms: At their worst the symptoms were moderate, in the emergency department the symptoms are unchanged. The patient has not experienced similar symptoms in the past. The patient has been recently seen by a physician: in the hospital. 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 - Social history:: Smoking status: Patient/guardian denies using tobacco. ROS: 15:23 Constitutional: Negative for fever. gs 15:23 Skin: Negative for cellulitis. 15:23 All other systems are negative. Exam: 15:23 Head/Face: Normocephalic, atraumatic. Eyes: Pupils equal round and reactive to light, gs extra-ocular motions intact. Lids and lashes normal. Conjunctiva and sclera are non-icteric and not injected. Cornea within normal limits. Periorbital areas with no swelling, redness, or edema. ENT: Nares patent. No nasal discharge, no septal abnormalities noted. Tympanic membranes are normal and external auditory canals are clear. Oropharynx with no redness, swelling, or masses, exudates, or evidence of obstruction, uvula midline. Mucous membranes moist. Neck: Trachea midline, no thyromegaly or masses palpated, and no cervical lymphadenopathy. Supple, full range of motion without nuchal rigidity, or vertebral point tenderness. No Meningismus. Chest/axilla: Normal chest wall appearance and motion. Nontender with no deformity. No lesions are appreciated. Cardiovascular: Regular rate and rhythm with a normal S1 and S2. No gallops, murmurs, or rubs. Normal PMI, no JVD. No pulse deficits. Respiratory: Lungs have equal breath sounds bilaterally, clear to auscultation and percussion. No rales, rhonchi or wheezes noted. No increased work of breathing, no retractions or nasal flaring. Abdomen/GI: Soft, non-tender, with normal bowel sounds. No distension or tympany. No guarding or rebound. No evidence of tenderness throughout. Back: No spinal tenderness. No costovertebral tenderness. Full range of motion. Skin: Warm, dry with normal turgor. Normal color with no rashes, no lesions, and no evidence of cellulitis. Neuro: Awake and alert, GCS 15, oriented to person, place, time, and situation. Cranial nerves II-XII grossly intact. Motor strength 5/5 in all extremities. Sensory grossly intact. Cerebellar exam normal. Normal gait. 15:23 Constitutional: The patient appears alert, awake. 15:23 Musculoskeletal/extremity: ROM: no acute changes, Circulation is intact in all extremities. DVT Exam: pain, that is mild, bluish discoloration, of the right leg, of the right martinez, 2x2 cm. Vital Signs: 13:34 BP 128 / 62; Pulse 85; Resp 14; Temp 97.5; Pulse Ox 97% on R/A; Weight 96.16 kg (R); lk1 Height 5 ft. 1 in. (154.94 cm); Pain 8/10; 14:30 BP 126 / 72; Pulse 76; Resp 16; Pulse Ox 98% on R/A; em 15:30 BP 132 / 76; Pulse 79; Resp 16; Pulse Ox 99% on R/A; em 13:34 Body Mass Index 40.06 (96.16 kg, 154.94 cm) lk1 MDM: 13:51 Patient medically screened. gs 15:23 Differential diagnosis: dvt,svt,cyst. Data reviewed: vital signs, nurses notes, and as gs a result, I will discharge patient. 12/07 13:59 Order name: US Extremity Venous Unilateral Ltd; Complete Time: 15:21 gs Administered Medications: No medications were administered Disposition: 12/07/17 15:29 Discharged to Home. Impression: Pain in limb, unspecified. - Condition is Stable. - Discharge Instructions: Musculoskeletal Pain. - Medication Reconciliation Form, Thank You Letter, Antibiotic Education, Prescription Opioid Use form. - Follow up: Private Physician; When: 2 - 3 days; Reason: Re-evaluation by your physician. Signatures: Dispatcher [employer] EDKem Fraire LVN LVN em Kluge, Leah, RN RN lk1 Rm Giblert MD MD Corrections: (The following items were deleted from the chart) 15:59 15:29 12/07/2017 15:29 Discharged to Home. Impression: Pain in limb, unspecified. em Condition is Stable. Forms are Medication Reconciliation Form, Thank You Letter, Antibiotic Education, Prescription Opioid Use. Follow up: Private Physician; When: 2 - 3 days; Reason: Re-evaluation by your physician. gs
--- NOTE | 2017-12-07 15:29 | ER ---
Nurse's Notes [facility] Name: Britt Bower Age: 42 yrs Sex: Female : 1975 Arrival Date: 12/07/2017 Time: 13:26 Bed 19 Private MD: CHARISSE CORDOBA Diagnosis: Pain in limb, unspecified Presentation: 12/07 13:30 Presenting complaint: Patient states: "I went to another ER and they said I have a clot lk1 in my leg. I can't get in to see my doctor soon, so they told me to come here make sure I am ok. I never hit my leg on anything. I took 8 Ibuprofen last night and I threw up this morning.". Transition of care: patient was not received from another setting of care. Onset of symptoms is unknown. Risk Assessment: Do you want to hurt yourself or someone else? Patient reports no desire to harm self or others. Initial Sepsis Screen: Does the patient meet any 2 criteria? No. Patient's initial sepsis screen is negative. Does the patient have a suspected source of infection? No. Patient's initial sepsis screen is negative. Care prior to arrival: None. 13:30 Method Of Arrival: Ambulatory lk1 13:30 Acuity: [facility] 3 lk1 Triage Assessment: 13:53 General: Appears. 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 - Social history:: Smoking status: Patient/guardian denies using tobacco. Screenin:52 Abuse screen: Denies threats or abuse. Nutritional screening: No deficits noted. em Tuberculosis screening: No symptoms or risk factors identified. Fall Risk None identified. Assessment: 13:47 General: Appears in no apparent distress. comfortable, Behavior is calm, cooperative. em Pain: Complains of pain in right martinez Pain currently is 8 out of 10 on a pain scale. Quality of pain is described as throbbing, Pain began 2-3 days ago. Neuro: Level of Consciousness is awake, alert, obeys commands, Oriented to person, place, time, situation. Cardiovascular: Capillary refill < 3 seconds Patient's skin is warm and dry. Cardiovascular: Denies chest pain, shortness of breath. Respiratory: Airway is patent Respiratory effort is even, unlabored, Respiratory pattern is regular, symmetrical. GI: Abdomen is round non-distended, Reports nausea, vomiting. : No signs and/or symptoms were reported regarding the genitourinary system. Derm: Skin is intact, Skin is pink, warm \\T\\ dry. Musculoskeletal: Range of motion: intact in all extremities. 14:00 Reassessment: I agree with above assessment by Kem Murillo LVN. iw 14:30 Reassessment: Patient appears in no apparent distress at this time. Patient and/or em family updated on plan of care and expected duration. Pain level reassessed. Patient is alert, oriented x 3, equal unlabored respirations, skin warm/dry/pink. 15:30 Reassessment: Patient appears in no apparent distress at this time. Patient and/or em family updated on plan of care and expected duration. Pain level reassessed. Patient is alert, oriented x 3, equal unlabored respirations, skin warm/dry/pink. Vital Signs: 13:34 BP 128 / 62; Pulse 85; Resp 14; Temp 97.5; Pulse Ox 97% on R/A; Weight 96.16 kg (R); lk1 Height 5 ft. 1 in. (154.94 cm); Pain 8/10; 14:30 BP 126 / 72; Pulse 76; Resp 16; Pulse Ox 98% on R/A; em 15:30 BP 132 / 76; Pulse 79; Resp 16; Pulse Ox 99% on R/A; em 13:34 Body Mass Index 40.06 (96.16 kg, 154.94 cm) lk1 ED Course: 13:26 Patient arrived in ED. rg4 13:26 CHARISSE CORDOBA is Private Physician. rg4 13:31 Triage completed. lk1 13:37 Arm band placed on right wrist. lk1 13:39 Rm Gilbert MD is Attending Physician. gs 13:48 Kem Murillo LVN is Primary Nurse. em 13:52 No provider procedures requiring assistance completed. em 13:53 Patient has correct armband on for positive identification. Bed in low position. Call em light in reach. Side rails up X 1. Adult w/ patient. 14:53 US Extremity Venous Unilateral Ltd In Process Unspecified. EDMS 15:58 Patient did not have IV access during this emergency room visit. em Administered Medications: No medications were administered Outcome: 15:29 Discharge ordered by MD. gs 15:58 Discharged to home ambulatory. em 15:58 Condition: good 15:58 Discharge instructions given to patient. 15:58 Discharge instructions given to Instructed on discharge instructions, follow up and referral plans. Demonstrated understanding of instructions, follow-up care. 15:59 Patient left the ED. em Signatures: Dispatcher [employer] [facility] Kem Murillo LVN ENGINEER/CONDUCTOR em Kisha Vela RN RN Katerina Florez RN RN Janice Ortez rg4 Rm Gilbert MD MD Corrections: (The following items were deleted from the chart) 13:32 13:30 Presenting complaint: Patient states: "I went to another ER and they said I have lk1 a clot in my leg. I can't get in to see my doctor soon, so they told me to come here make sure I am ok. I never hit my leg on anything." lk1
[2017-12-07 16:11] VITALS: TEMP 97.5
[2017-12-07 16:14] VITALS: BP 132/76; O2SAT 99
== END 2017-12-07 15:59 | disposition home or self-care (01) ==
LOC: ER 13:23
DX: M79.661 Pain in right lower leg (principal); I10 Essential (primary) hypertension; E11.9 Type 2 diabetes mellitus without complications; Z88.0 Allergy status to penicillin; Z88.5 Allergy status to narcotic agent; Z88.6 Allergy status to analgesic agent; Z88.8 Allergy status to other drugs, medicaments and biological substances; Z91.048 Other nonmedicinal substance allergy status
CPT/HCPCS: 93971; 99283

== ENCOUNTER 2018-03-01 18:24 | Emergency (ER) | payer SELFPAY ==
--- OUTSIDE RECORDS SUMMARY | 2018-03-01 18:27 | XMS REPORT ---
[...] Dosage System Date Date ProAir HFA [facility] 61176631421 108 (90 Base) Jul 26, Active 2 puffs as MCG/ACT 2018 needed Inhalation every 6 hrs Keppra ND 53746632110 500 MG Orally Aug 17, Active 2 tablets every 12 hrs 2018 HumuLIN 70/30 ND 90306360208 (70-30) 100 Jul 26, Active 10 units KwikPen UNIT/ML 2016 Subcutaneous bid Flonase ND 28855555234 50 MCG/ACT Jul 26, Active 2 spray in Nasally Once a 2017 each day nostril Bentyl ND 39964299856 20 MG Orally November 21, Active 1 tablet Four times a 2018 day Gabapentin ND 80994863583 300 MG Orally Jul 26, Active 2 capsule Three times a 2018 before day bedtime Zestoretic ND 53133997429 20-25 MG Orally Jul 26, Active 1 tablet Once a day 2016 Promethazine HCl ND 01829298266 50 MG Orally November 21, Active 1 tablet every 6 hrs 2016 as needed Tylenol # 3 NDC 0 300/30mg PO November 21, Active 1-2 tabs every 6 hrs. 2018 Results Name Result Date Reference Range Unit Abnormality Flag URINALYSIS AUTO W/O SCOPE (29047) ----NIT N 20171113 ----URO 0.2 20171113 ----PROTEIN 1+ 20171113 ----pH 5.5 20171113 ----BLO N 20171113 ----GLUCOSE N 20171113 ----ALBERTO N 20171113 ----BILIRUBIN 1+ 20171113 ----KETONES N 20171113 ----SPECIFIC GRAVITY >=1.030 20171113 Summary Purpose eClinicalWorks Submission
--- OUTSIDE RECORDS SUMMARY | 2018-03-01 18:27 | XMS REPORT ---
:1975 Author Organization eClinicalWorks Care Team Providers Name Role Phone Jackelyn Hunt Provider Role Unavailable Allergies No Known Allergies Problems Problem Type Condition Code Onset Dates Condition Status Problem Secondary diabetes with peripheral E13.42 Active neuropathy Problem Diabetes type 2, controlled E11.9 Active Problem Mixed hyperlipidemia E78.2 Active Problem Morbid obesity E66.01 Active Problem Other specified diabetes mellitus E13.42 Active with diabetic polyneuropathy Problem Ulcerative colitis K51.90 Active Problem Epilepsy G40.909 Active Problem Accelerated essential hypertension I10 Active Medications No Known Medications Results No Known Results Summary Purpose [employer] Submission
--- OUTSIDE RECORDS SUMMARY | 2018-03-01 18:27 | XMS REPORT ---
:1975 Author Organization eClinicalWorks Care Team Providers Name Role Phone Jackelyn Hunt Provider Role Unavailable Allergies, Adverse Reactions, Alerts Substance Reaction Event Type penicillin anaphylaxis Drug Allergy Zofran anaphylaxis Drug Allergy Iodine anaphylaxis Drug Allergy Diazepam anaphylaxis Drug Allergy Aspirin anaphylaxis Drug Allergy Problems Problem Type Condition Code Onset Dates Condition Status Assessment Dysuria R30.0 Active Problem Secondary diabetes with peripheral E13.42 Active neuropathy Assessment Diabetes type 2, controlled E11.9 Active Assessment Epilepsy G40.909 Active Assessment Accelerated essential hypertension I10 Active Problem Diabetes type 2, controlled E11.9 Active Problem Mixed hyperlipidemia E78.2 Active Problem Morbid obesity E66.01 Active Problem Other specified diabetes mellitus E13.42 Active with diabetic polyneuropathy Problem Ulcerative colitis K51.90 Active Problem Epilepsy G40.909 Active Problem Accelerated essential hypertension I10 Active Medications Medication Code Code Instructions Start End Status Dosage System Date Date Bentyl ND 52414353664 20 MG Orally November 21, Active 1 tablet Four times a 2018 day Tylenol # 3 NDC 0 300/30mg PO November 21, Active 1-2 tabs every 6 hrs. 2018 Flonase ND 35342628136 50 MCG/ACT Jul 26, Active 2 spray in Nasally Once a 2018 each day nostril Promethazine HCl ND 41885271473 50 MG Orally November 21, Active 1 tablet every 6 hrs 2016 as needed Gabapentin ND 86138422341 600 MG Orally Jul 26, Active 1 capsule Three times a 2018 day ProAir HFA ND 59624780714 108 (90 Base) Jul 26, Active 2 puffs as MCG/ACT 2018 needed Inhalation every 6 hrs Keppra ND 04956917123 500 MG Orally Active take two Twice a day -2 tablet(s) by mouth twice a day. Zestoretic ND 46744718884 20-25 MG Orally Jul 26, Active 1 tablet Once a day 2015 HumuLIN 70/30 ND 95493705250 (70-30) 100 Jul 26, Active 10 units KwikPen UNIT/ML 2016 Subcutaneous bid Results Name Result Date Reference Range Unit Abnormality Flag URINALYSIS AUTO W/O SCOPE (52330) ----NIT N [id number] ----URO 1.0 20180219 ----PROTEIN TR [id number] ----pH 5.5 20180219 ----BLO N [id number] ----GLUCOSE N 20180219 ----ALBERTO N [id number] ----BILIRUBIN N 20180219 ----KETONES N [id number] ----SPECIFIC GRAVITY 1.025 20180219 Summary Purpose eClinicalWorks Submission
--- NOTE | 2018-03-01 19:39 | EDPHYS ---
Physician Documentation [facility] Name: Britt Bower Age: 42 yrs Sex: Female : 1975 Arrival Date: 03/01/2018 Time: 18:26 Bed 24 Private MD: ED Physician Rm Gilbert HPI: 03/01 19:35 Associated signs and symptoms: Pertinent negatives: Altered mental status dysphagia, gs fever, hives, shortness of breath. Severity of symptoms: At their worst the symptoms were moderate. The patient has not experienced similar symptoms in the past. cc: facial rash burming. onset this am after washing face with new soap says has mild rash itching to face as well as burning sensation. 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 - Social history:: Smoking status: Patient/guardian denies using tobacco. - Ebola Screening: : No symptoms or risks identified at this time. ROS: 19:35 All other systems are negative. gs Exam: 19:35 Head/Face: Normocephalic, atraumatic. Eyes: Pupils equal round and reactive to light, gs extra-ocular motions intact. Lids and lashes normal. Conjunctiva and sclera are non-icteric and not injected. Cornea within normal limits. Periorbital areas with no swelling, redness, or edema. ENT: Nares patent. No nasal discharge, no septal abnormalities noted. Tympanic membranes are normal and external auditory canals are clear. Oropharynx with no redness, swelling, or masses, exudates, or evidence of obstruction, uvula midline. Mucous membranes moist. Neck: Trachea midline, no thyromegaly or masses palpated, and no cervical lymphadenopathy. Supple, full range of motion without nuchal rigidity, or vertebral point tenderness. No Meningismus. Chest/axilla: Normal chest wall appearance and motion. Nontender with no deformity. No lesions are appreciated. Cardiovascular: Regular rate and rhythm with a normal S1 and S2. No gallops, murmurs, or rubs. Normal PMI, no JVD. No pulse deficits. Respiratory: Lungs have equal breath sounds bilaterally, clear to auscultation and percussion. No rales, rhonchi or wheezes noted. No increased work of breathing, no retractions or nasal flaring. Abdomen/GI: Soft, non-tender, with normal bowel sounds. No distension or tympany. No guarding or rebound. No evidence of tenderness throughout. Back: No spinal tenderness. No costovertebral tenderness. Full range of motion. MS/ Extremity: Pulses equal, no cyanosis. Neurovascular intact. Full, normal range of motion. Neuro: Awake and alert, GCS 15, oriented to person, place, time, and situation. Cranial nerves II-XII grossly intact. Motor strength 5/5 in all extremities. Sensory grossly intact. Cerebellar exam normal. Normal gait. 19:35 Constitutional: The patient appears alert, awake. 19:35 Skin: rash can be described as mild erythema, on the right cheek and left cheek. Vital Signs: 18:52 BP 108 / 87; Pulse 97; Resp 18 S; Temp 97.0(O); Pulse Ox 97% on R/A; Weight 97.07 kg jl7 (R); Height 5 ft. 0 in. (152.40 cm) (R); Pain 8/10; 19:01 BP 113 / 80; Pulse 86; Resp 18; Pulse Ox 96% ; tl3 19:55 BP 124 / 81; Pulse 95; Resp 18; Pulse Ox 100% on R/A; tl3 18:52 Body Mass Index 41.79 (97.07 kg, 152.40 cm) jl7 MDM: 19:34 Patient medically screened. gs 19:35 Differential diagnosis: urticaria, allergy to soap. Data reviewed: vital signs, nurses gs notes. Response to treatment: the patient's symptoms have mildly improved after treatment, and as a result, I will discharge patient. Administered Medications: No medications were administered Disposition: 03/01/18 19:39 Discharged to Home. Impression: Allergy status to unspecified drugs, medicaments and biological substances status. - Condition is Stable. - Discharge Instructions: Allergies, Adult. - Prescriptions for Prednisone 20 mg Oral Tablet - take 1 tablet by ORAL route once daily for 5 days; 5 tablet. Zyrtec 10 mg Oral Tablet - take 1 tablet by ORAL route once daily As needed; 20 tablet. - Medication Reconciliation Form, Thank You Letter, Antibiotic Education, Prescription Opioid Use, Work release form form. - Follow up: Private Physician; When: 2 - 3 days; Reason: Re-evaluation by your physician. Signatures: Velvet Quiroga RN RN jl7 Rm Gilbert MD MD gs Rain Sandoval RN RN tl3 Corrections: (The following items were deleted from the chart) 19:57 19:39 03/01/2018 19:39 Discharged to Home. Impression: Allergy status to unspecified tl3 drugs, medicaments and biological substances status. Condition is Stable. Forms are Medication Reconciliation Form, Thank You Letter, Antibiotic Education, Prescription Opioid Use. Follow up: Private Physician; When: 2 - 3 days; Reason: Re-evaluation by your physician. gs
--- NOTE | 2018-03-01 19:39 | ER ---
Nurse's Notes [facility] Name: Britt Bower Age: 42 yrs Sex: Female : 1975 Arrival Date: 03/01/2018 Time: 18:26 Bed 24 Private MD: Diagnosis: Allergy status to unspecified drugs, medicaments and biological substances status Presentation: 03/01 18:49 Presenting complaint: Patient states: My face started feeling like it was on fire at 7 about 2 pm today. I don't know if it's an allergic reaction to something or what. Transition of care: patient was not received from another setting of care. Onset of symptoms was March 01, 2018 at 14:00. Risk Assessment: Do you want to hurt yourself or someone else? Patient reports no desire to harm self or others. Initial Sepsis Screen: Does the patient meet any 2 criteria? No. Patient's initial sepsis screen is negative. Does the patient have a suspected source of infection? No. Patient's initial sepsis screen is negative. Care prior to arrival: None. 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 - Social history:: Smoking status: Patient/guardian denies using tobacco. - Ebola Screening: : No symptoms or risks identified at this time. Screenin:05 Abuse screen: Denies threats or abuse. Nutritional screening: No deficits noted. tl3 Tuberculosis screening: No symptoms or risk factors identified. Fall Risk None identified. Assessment: 19:01 General: Appears in no apparent distress. uncomfortable, well groomed, well developed, tl3 well nourished, Behavior is calm, cooperative, appropriate for age. Pain: Complains of pain in face. Neuro: Level of Consciousness is awake, alert, obeys commands, Oriented to person, place, time, situation, Appropriate for age. Cardiovascular: Patient's skin is warm and dry. Respiratory: Airway is patent Respiratory effort is even, unlabored, Respiratory pattern is regular, symmetrical. GI: No signs and/or symptoms were reported involving the gastrointestinal system. : No signs and/or symptoms were reported regarding the genitourinary system. EENT: No signs and/or symptoms were reported regarding the EENT system. Derm: Rash noted that is red, on face. Musculoskeletal: No signs and/or symptoms reported regarding the musculoskeletal system. Injury Description: used some new soap two days ago, pt states that her face feels like it is on fire. 19:55 Reassessment: Patient appears in no apparent distress at this time. No changes from tl3 previously documented assessment. Patient and/or family updated on plan of care and expected duration. Pain level reassessed. Patient is alert, oriented x 3, equal unlabored respirations, skin warm/dry/pink. Vital Signs: 18:52 BP 108 / 87; Pulse 97; Resp 18 S; Temp 97.0(O); Pulse Ox 97% on R/A; Weight 97.07 kg jl7 (R); Height 5 ft. 0 in. (152.40 cm) (R); Pain 8/10; 19:01 BP 113 / 80; Pulse 86; Resp 18; Pulse Ox 96% ; tl3 19:55 BP 124 / 81; Pulse 95; Resp 18; Pulse Ox 100% on R/A; tl3 18:52 Body Mass Index 41.79 (97.07 kg, 152.40 cm) jl7 ED Course: 18:26 Patient arrived in ED. tw3 18:51 Triage completed. jl7 18:52 Arm band placed on right wrist. jl7 18:54 Rain Sandoval, MERRICK is Primary Nurse. tl3 19:03 Rm Gilbert MD is Attending Physician. gs 19:05 Patient has correct armband on for positive identification. Placed in gown. Bed in low tl3 position. Side rails up X 1. Pulse ox on. NIBP on. 19:05 No provider procedures requiring assistance completed. Patient did not have IV access tl3 during this emergency room visit. Administered Medications: No medications were administered Outcome: 19:39 Discharge ordered by . jose 19:55 Discharged to home ambulatory. tl3 19:55 Condition: good 19:55 Discharge instructions given to patient, Instructed on discharge instructions, follow up and referral plans. medication usage, Demonstrated understanding of instructions, follow-up care, medications, Prescriptions given X 2. 19:57 Patient left the ED. tl3 Signatures: Velvet Quiroga, RN RN jl7 Madan, Tia tw3 Rm Gilbert MD MD gs Lowrey, Tammy RN RN tl3
[2018-03-01 20:09] VITALS: TEMP 97
[2018-03-01 20:11] VITALS: BP 124/81; O2SAT 100
== END 2018-03-01 19:57 | disposition home or self-care (01) ==
LOC: ER 18:24
DX: R21 Rash and other nonspecific skin eruption (principal); I10 Essential (primary) hypertension; Z88.0 Allergy status to penicillin; Z88.1 Allergy status to other antibiotic agents; Z88.5 Allergy status to narcotic agent; Z88.6 Allergy status to analgesic agent; Z88.9 Allergy status to unspecified drugs, medicaments and biological substances; Z91.048 Other nonmedicinal substance allergy status
CPT/HCPCS: 99283

== ENCOUNTER 2018-04-06 22:06 | Emergency (ER) | payer SELFPAY ==
--- OUTSIDE RECORDS SUMMARY | 2018-04-06 22:08 | XMS REPORT ---
[...] Status Dosage System Date Date ProAir HFA [facility] [id number] 108 (90 Base) Jul 26, Active 2 puffs as MCG/ACT 2018 needed Inhalation every 6 hrs Keppra ND 23126115653 500 MG Orally Aug 17, Active 2 tablets every 12 hrs 2018 HumuLIN 70/30 ND 57135125984 (70-30) 100 Jul 26, Active 10 units KwikPen UNIT/ML 2016 Subcutaneous bid Flonase ND 71710242867 50 MCG/ACT Jul 26, Active 2 spray in Nasally Once a 2017 each day nostril Bentyl ND 15115833183 20 MG Orally November 21, Active 1 tablet Four times a 2018 day Gabapentin ND 43737663245 300 MG Orally Jul 26, Active 2 capsule Three times a 2018 before day bedtime Zestoretic ND 14715036966 20-25 MG Orally Jul 26, Active 1 tablet Once a day 2016 Promethazine HCl ND 02264401066 50 MG Orally November 21, Active 1 tablet every 6 hrs 2016 as needed Tylenol # 3 NDC 0 300/30mg PO November 21, Active 1-2 tabs every 6 hrs. 2018 Results Name Result Date Reference Range Unit Abnormality Flag URINALYSIS AUTO W/O SCOPE (52518) ----NIT N 20171113 ----URO 0.2 20171113 ----PROTEIN 1+ 20171113 ----pH 5.5 20171113 ----BLO N 20171113 ----GLUCOSE N 20171113 ----ALBERTO N 20171113 ----BILIRUBIN 1+ 20171113 ----KETONES N 20171113 ----SPECIFIC GRAVITY >=1.030 20171113 Summary Purpose [employer]Clinical[employer] Submission
--- OUTSIDE RECORDS SUMMARY | 2018-04-06 22:09 | XMS REPORT ---
[...] Status Dosage System Date Date Bentyl ND 91031843185 20 MG Orally November 21, Active 1 tablet Four times a 2018 day Tylenol # 3 NDC 0 300/30mg PO November 21, Active 1-2 tabs every 6 hrs. 2018 Flonase ND 68585170844 50 MCG/ACT Jul 26, Active 2 spray in Nasally Once a 2018 each day nostril Promethazine HCl ND 74010255725 50 MG Orally November 21, Active 1 tablet every 6 hrs 2016 as needed Gabapentin ND 63145069374 600 MG Orally Jul 26, Active 1 capsule Three times a 2018 day ProAir HFA ND 54199147616 108 (90 Base) Jul 26, Active 2 puffs as MCG/ACT 2018 needed Inhalation every 6 hrs Keppra ND 88126080732 500 MG Orally Active take two Twice a day -2 tablet(s) by mouth twice a day. Zestoretic ND 25800631675 20-25 MG Orally Jul 26, Active 1 tablet Once a day 2015 HumuLIN 70/30 ND 34036330899 (70-30) 100 Jul 26, Active 10 units KwikPen UNIT/ML 2016 Subcutaneous bid Results Name Result Date Reference Range Unit Abnormality Flag URINALYSIS AUTO W/O SCOPE (68288) ----NIT N [id number] ----URO 1.0 20180219 ----PROTEIN TR 20180219 ----pH 5.5 20180219 ----BLO N [id number] ----GLUCOSE N [id number] ----ALBERTO N [id number] ----BILIRUBIN N [id number] ----KETONES N [id number] ----SPECIFIC GRAVITY 1.025 20180219 Summary Purpose eClinicalWorks Submission
--- OUTSIDE RECORDS SUMMARY | 2018-04-06 22:09 | XMS REPORT ---
[...] Medications Results No Known Results Summary Purpose [employer] Submission
[2018-04-06] MEDS ORDERED: HYDROCODONE/APAP 5/325 MG TAB ONE (22:44)
[2018-04-06 22:46] LABS: Urine Blood NEGATIVE (NEG); Urine Glucose NEGATIVE (NEG); Urine Protein NEGATIVE (NEG); Urine pH 5.5 (5.0-7.0)
--- NOTE | 2018-04-07 00:51 | EDPHYS ---
Physician Documentation [facility] Name: Britt Bower Age: 42 yrs Sex: Female : 1975 Arrival Date: 04/06/2018 Time: 22:08 Bed 7 Private MD: BRO Physician Dontae López HPI: 04/06 23:00 This 42 yrs old Female presents to ER via Ambulatory with complaints of Right pm1 shoulder pain. 23:00 Onset: The symptoms/episode began/occurred 3 day(s) ago. Associated signs and pm1 symptoms:. Modifying factors: The patient symptoms are alleviated by remaining still, the patient symptoms are aggravated by Movement of right shoulder. Patient with pain tot right shoulder with lifting and rotating her right shoulder. 2 days ago the patient reported right leg pain and cramping that is no longer present. 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 for Neuropathic Pain [Active]; Humulin cc3 70/30 100 unit/mL (70-30) Sub-Q tab 5 units twice a day for Type 2 Diabetes Mellitus [Active]; levetiracetam 500 mg Oral tab 1 tab 4 times a day for Tonic-Clonic Epilepsy Treatment Adjunct [Active]; lisinopril-hydrochlorothiazide 20-25 mg Oral tab 1 tab once daily for Hypertension [Active]; flonace 2 puffs/day [Active]; Albuterol Inhl 2 puffs per day PRN [Active]; - PMHx: 22:30 Diabetes - IDDM; Hypertension; epilepsy; Asthma; neuropathy; history of stroke; cc3 - PSHx: 22:30 Cholecystectomy; Hysterectomy; cc3 - Immunization history:: Adult Immunizations not up to date. - Social history:: Smoking status: Patient/guardian denies using tobacco, never smoked. - Ebola Screening: : No symptoms or risks identified at this time. ROS: 23:00 Constitutional: Negative for fever, chills, and weight loss, Eyes: Negative for injury, pm1 pain, redness, and discharge, ENT: Negative for injury, pain, and discharge, Neck: Negative for injury, pain, and swelling, Cardiovascular: Negative for chest pain, palpitations, and edema, Respiratory: Negative for shortness of breath, cough, wheezing, and pleuritic chest pain, Abdomen/GI: Negative for abdominal pain, nausea, vomiting, diarrhea, and constipation, Back: Negative for injury and pain, : Negative for injury, bleeding, discharge, and swelling. 23:00 Skin: Negative for injury, rash, and discoloration. 23:00 MS/extremity: Positive for pain, of the anterior aspect of right shoulder and right axilla, Negative for deformity. 23:00 Neuro: Negative for numbness, tingling. Exam: 23:00 Constitutional: This is a well developed, well nourished patient who is awake, alert, pm1 and in no acute distress. Head/Face: Normocephalic, atraumatic. Eyes: Pupils equal round and reactive to light, extra-ocular motions intact. Lids and lashes normal. Conjunctiva and sclera are non-icteric and not injected. Cornea within normal limits. Periorbital areas with no swelling, redness, or edema. ENT: Nares patent. No nasal discharge, no septal abnormalities noted. Tympanic membranes are normal and external auditory canals are clear. Oropharynx with no redness, swelling, or masses, exudates, or evidence of obstruction, uvula midline. Mucous membranes moist. Neck: Trachea midline, no thyromegaly or masses palpated, and no cervical lymphadenopathy. Supple, full range of motion without nuchal rigidity, or vertebral point tenderness. No Meningismus. Chest/axilla: Normal chest wall appearance and motion. Nontender with no deformity. No lesions are appreciated. Cardiovascular: Regular rate and rhythm with a normal S1 and S2. No gallops, murmurs, or rubs. No pulse deficits. Respiratory: Lungs have equal breath sounds bilaterally, clear to auscultation and percussion. No rales, rhonchi or wheezes noted. No increased work of breathing, no retractions or nasal flaring. Abdomen/GI: Soft, non-tender, with normal bowel sounds. No distension or tympany. No guarding or rebound. No evidence of tenderness throughout. Back: No spinal tenderness. No costovertebral tenderness. Full range of motion. Skin: Warm, dry with normal turgor. Normal color with no rashes, no lesions, and no evidence of cellulitis. 23:00 Musculoskeletal/extremity: Extremities: grossly normal except: noted in the right axilla and anterior aspect of right shoulder, tenderness at supraspinatus insertion point, right axilla, and right lateral shoulder : Painful rotation passively , There is no evidence of decreased ROM, Circulation is intact in all extremities. the right arm Sensation intact. 23:00 Neuro: Orientation: is normal, Motor: is normal, moves all fours, strength is 5/5 in all extremities, Sensation: is normal, no obvious gross deficits, Gait: is steady, at a normal pace, without difficulty. Vital Signs: 22:30 BP 117 / 67; Pulse 71; Resp 18 S; Temp 98.2; Pulse Ox 97% on R/A; Pain 10/10; cc3 23:30 BP 107 / 66; Pulse 67; Resp 18 S; Pulse Ox 97% on R/A; cc3 04/07 00:35 BP 100 / 66; Pulse 65; Resp 19; Pulse Ox 97% on R/A; cc3 01:30 BP 104 / 67; Pulse 65; Resp 18 S; Pulse Ox 97% on R/A; cc3 MDM: 04/06 22:21 Patient medically screened. [facility] 04/07 00:04 Data reviewed: vital signs. Data interpreted: Pulse oximetry: on room air is 97 %. pm1 Interpretation: normal. 00:50 Counseling: I had a detailed discussion with the patient and/or guardian regarding: the pm1 historical points, exam findings, and any diagnostic results supporting the discharge/admit diagnosis, radiology results, the need for outpatient follow up, to return to the emergency department if symptoms worsen or persist or if there are any questions or concerns that arise at home. 04/06 22:37 Order name: Urine Dipstick--Ancillary (enter results); Complete Time: 22:53 mw2 04/06 22:37 Order name: Urine --Ancillary (enter results); Complete Time: 22:53 mw2 04/06 22:31 Order name: Shoulder Right (2 View) XRAY pm1 04/07 00:53 Order name: Sling; Complete Time: 01:53 pm1 Administered Medications: 04/06 22:35 Drug: [place] 5 mg-325 mg 1 tabs Route: PO; cc3 23:00 Follow up: Response: No adverse reaction; Pain is unchanged, physician notified cc3 Disposition: 04/07 06:50 Co-signature as Attending Physician, Dontae López MD I agree with the assessment and abebe plan of care. Disposition: 04/07/18 00:50 Discharged to Home. Impression: Pain in right shoulder. - Condition is Stable. - Discharge Instructions: Shoulder Pain, Shoulder Range of Motion Exercises, How to Use a Sling. - Prescriptions for Tylenol- Codeine #3 300-30 mg Oral Tablet - take 2 tablets by ORAL route every 6 hours As needed; 20 tablet. - Medication Reconciliation Form, Thank You Letter, Antibiotic Education, Prescription Opioid Use, Work release form form. - Follow up: Emergency Department; When: As needed; Reason: Worsening of condition. Follow up: Private Physician; When: 2 - 3 days; Reason: Recheck today's complaints, Continuance of care, Re-evaluation by your physician. - Problem is new. - Symptoms have improved. Signatures: Dispatcher [employer] [facility] Dontae López, Ralph Travis MD, cha, BUILDING ESTIMATOR BUILDING ESTIMATOR pm1 Johanna Rivera cc3 Corrections: (The following items were deleted from the chart) 01:53 00:50 04/07/2018 00:50 Discharged to Home. Impression: Pain in right shoulder. cc3 Condition is Stable. Forms are Medication Reconciliation Form, Thank You Letter, Antibiotic Education, Prescription Opioid Use. Follow up: Emergency Department; When: As needed; Reason: Worsening of condition. Follow up: Private Physician; When: 2 - 3 days; Reason: Recheck today's complaints, Continuance of care, Re-evaluation by your physician. Problem is new. Symptoms have improved. pm1
--- NOTE | 2018-04-07 00:51 | ER ---
Nurse's Notes [facility] Name: Britt Bower Age: 42 yrs Sex: Female : 1975 Arrival Date: 04/06/2018 Time: 22:08 Bed 7 Private MD: Diagnosis: Pain in right shoulder Presentation: 04/06 22:30 Presenting complaint: Patient states: right shoulder pain radiating to right flank and cc3 leg since 2 days. Transition of care: patient was not received from another setting of care. Onset of symptoms was April 04, 2018. Risk Assessment: Do you want to hurt yourself or someone else? Patient reports no desire to harm self or others. Initial Sepsis Screen: Does the patient meet any 2 criteria? No. Patient's initial sepsis screen is negative. Does the patient have a suspected source of infection? No. Patient's initial sepsis screen is negative. Care prior to arrival: None. 22:30 Method Of Arrival: Ambulatory cc3 22:30 Acuity: DUKE 4 cc3 Triage Assessment: 22:30 General: Appears in no apparent distress. comfortable, Behavior is calm, cooperative, cc3 appropriate for age. Pain: Complains of pain in right shoulder Pain radiates to right flank and right leg Pain currently is 10 out of 10 on a pain scale. Quality of pain is described as aching, Pain began 2-3 days ago. EENT: No signs and/or symptoms were reported regarding the EENT system. Neuro: Level of Consciousness is awake, alert, obeys commands, Oriented to person, place, time, situation, Appropriate for age. Cardiovascular: Denies chest pain. Respiratory: Airway is patent Respiratory effort is even, unlabored, Respiratory pattern is regular, symmetrical. GI: Abdomen is round obese. : No signs and/or symptoms were reported regarding the genitourinary system. Derm: No signs and/or symptoms reported regarding the dermatologic system. Musculoskeletal: Reports numbness in right leg pain in right shoulder, right flank and right leg since 2 days. 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 for Neuropathic Pain [Active]; Humulin cc3 70/30 100 unit/mL (70-30) Sub-Q tab 5 units twice a day for Type 2 Diabetes Mellitus [Active]; levetiracetam 500 mg Oral tab 1 tab 4 times a day for Tonic-Clonic Epilepsy Treatment Adjunct [Active]; lisinopril-hydrochlorothiazide 20-25 mg Oral tab 1 tab once daily for Hypertension [Active]; flonace 2 puffs/day [Active]; Albuterol Inhl 2 puffs per day PRN [Active]; - PMHx: 22:30 Diabetes - IDDM; Hypertension; epilepsy; Asthma; neuropathy; history of stroke; cc3 - PSHx: 22:30 Cholecystectomy; Hysterectomy; cc3 - Immunization history:: Adult Immunizations not up to date. - Social history:: Smoking status: Patient/guardian denies using tobacco, never smoked. - Ebola Screening: : No symptoms or risks identified at this time. Screenin:30 Abuse screen: Denies threats or abuse. Denies injuries from another. Nutritional cc3 screening: No deficits noted. Tuberculosis screening: No symptoms or risk factors identified. Fall Risk Ambulatory Aid- None/Bed Rest/Nurse Assist (0 pts). Gait- Normal/Bed Rest/Wheelchair (0 pts) Mental Status- Oriented to own ability (0 pts). Assessment: 22:35 Reassessment: see triage assessment. cc3 23:15 Reassessment: xray right shoulder done bedside by xray preparatory technician. cc3 23:30 Reassessment: Patient appears in no apparent distress at this time. No changes from cc3 previously documented assessment. Patient and/or family updated on plan of care and expected duration. Pain level reassessed. Patient is alert, oriented x 3, equal unlabored respirations, skin warm/dry/pink. 04/07 00:30 Reassessment: Patient appears in no apparent distress at this time. Patient and/or cc3 family updated on plan of care and expected duration. Pain level reassessed. Patient is alert, oriented x 3, equal unlabored respirations, skin warm/dry/pink. 01:30 Reassessment: Patient appears in no apparent distress at this time. Patient and/or cc3 family updated on plan of care and expected duration. Pain level reassessed. Patient is alert, oriented x 3, equal unlabored respirations, skin warm/dry/pink. right arm sling applied. 01:45 Reassessment: Patient discharged home with prescription, discharge instructions and cc3 sling form given. No IV cannula in situ. Patient left ER vitally stable and ambulatory. Vital Signs: 04/06 22:30 BP 117 / 67; Pulse 71; Resp 18 S; Temp 98.2; Pulse Ox 97% on R/A; Pain 10/10; cc3 23:30 BP 107 / 66; Pulse 67; Resp 18 S; Pulse Ox 97% on R/A; cc3 04/07 00:35 BP 100 / 66; Pulse 65; Resp 19; Pulse Ox 97% on R/A; cc3 01:30 BP 104 / 67; Pulse 65; Resp 18 S; Pulse Ox 97% on R/A; cc3 ED Course: 04/06 22:08 Patient arrived in ED. es 22:17 Sotero Vaca, MERRICK is Primary Nurse. bp 22:21 Ralph White NP is PHCP. pm1 22:21 Dontae Lóepz MD is Attending Physician. pm1 22:30 Arm band placed on right wrist. cc3 22:30 Patient has correct armband on for positive identification. Bed in low position. Call cc3 light in reach. Adult w/ patient. 22:55 Triage completed. cc3 23:53 X-ray completed. Portable x-ray completed in exam room. Patient tolerated procedure kw well. 23:57 Shoulder Right (2 View) XRAY In Process Unspecified. EDMS 04/07 01:30 No provider procedures requiring assistance completed. Patient did not have IV access cc3 during this emergency room visit. 01:30 Sling \T\ swathe to right arm. cc3 Administered Medications: 04/06 22:35 Drug: Mobile 5 mg-325 mg 1 tabs Route: PO; cc3 23:00 Follow up: Response: No adverse reaction; Pain is unchanged, physician notified cc3 Outcome: 04/07 00:50 Discharge ordered by . pm1 01:30 Discharged to home ambulatory, with family. cc3 01:30 Condition: stable 01:30 Discharge instructions given to patient, family, Instructed on discharge instructions, follow up and referral plans. medication usage, Demonstrated understanding of instructions, follow-up care, medications, Prescriptions given X 1. 01:53 Patient left the ED. cc3 Signatures: Dispatcher [employer] EDAngela Fowler Kimberlee kw Marinas, Patrick, RECYCLING ASSISTANT RECYCLING ASSISTANT pm1 Sotero Vaca, RN RN bp Johanna Rivera cc3 Corrections: (The following items were deleted from the chart) 04/06 23:50 22:30 Pain: Complains of pain in right shoulder Pain radiates to right flank and right cc3 leg Pain currently is 8 out of 10 on a pain scale. Quality of pain is described as aching, Pain began 2-3 days ago. cc3 23:51 22:30 BP 117 / 67; Pulse 71bpm; Resp 18bpm; Spontaneous; Pulse Ox 97% RA; Temp 98.2F; cc3 Pain 8/10; cc3
[2018-04-07 02:04] VITALS: O2SAT 97
[2018-04-07 02:06] VITALS: TEMP 98.2
[2018-04-07 02:08] VITALS: BP 104/67
--- NOTE | 2018-04-07 14:04 | RAD REPORT ---
EXAM DESCRIPTION: Shoulder Right 2 View - 04/06/2018 11:58 pm CLINICAL HISTORY: Right shoulder pain COMPARISON: None. TECHNIQUE: Internal and external rotation views of the right shoulder were obtained. FINDINGS: There is no fracture or dislocation. AC joint is normal in appearance. No acute or suspici ous findings. IMPRESSION: Negative two-view right shoulder examination.
== END 2018-04-07 01:53 | disposition home or self-care (01) ==
LOC: ER 22:06
DX: M25.511 Pain in right shoulder (principal); J45.909 Unspecified asthma, uncomplicated; I10 Essential (primary) hypertension; E11.9 Type 2 diabetes mellitus without complications; Z88.0 Allergy status to penicillin; Z88.1 Allergy status to other antibiotic agents; Z88.6 Allergy status to analgesic agent; Z91.09 Other allergy status, other than to drugs and biological substances
CPT/HCPCS: 81003; 81025; 99284

== ENCOUNTER 2018-04-19 13:33 | Observation (INO) | payer SELFPAY ==
--- OUTSIDE RECORDS SUMMARY | 2018-04-19 13:37 | XMS REPORT ---
[...] Status Dosage System Date Date ProAir HFA [facility] 82873661581 108 (90 Base) Jul 26, Active 2 puffs as MCG/ACT 2018 needed Inhalation every 6 hrs Keppra ND 06244102939 500 MG Orally Aug 17, Active 2 tablets every 12 hrs 2018 HumuLIN 70/30 ND 67469550284 (70-30) 100 Jul 26, Active 10 units KwikPen UNIT/ML 2016 Subcutaneous bid Flonase ND 80936805504 50 MCG/ACT Jul 26, Active 2 spray in Nasally Once a 2017 each day nostril Bentyl ND 36332231115 20 MG Orally November 21, Active 1 tablet Four times a 2018 day Gabapentin ND 16752012476 300 MG Orally Jul 26, Active 2 capsule Three times a 2018 before day bedtime Zestoretic ND 17225834899 20-25 MG Orally Jul 26, Active 1 tablet Once a day 2016 Promethazine HCl ND 21435636627 50 MG Orally November 21, Active 1 tablet every 6 hrs 2016 as needed Tylenol # 3 NDC 0 300/30mg PO November 21, Active 1-2 tabs every 6 hrs. 2018 Results Name Result Date Reference Range Unit Abnormality Flag URINALYSIS AUTO W/O SCOPE (51392) ----NIT N 20171113 ----URO 0.2 20171113 ----PROTEIN 1+ 20171113 ----pH 5.5 20171113 ----BLO N 20171113 ----GLUCOSE N 20171113 ----ALBERTO N 20171113 ----BILIRUBIN 1+ 20171113 ----KETONES N 20171113 ----SPECIFIC GRAVITY >=1.030 20171113 Summary Purpose eClinicalWorks Submission
--- OUTSIDE RECORDS SUMMARY | 2018-04-19 13:37 | XMS REPORT ---
[...] Status Dosage System Date Date Bentyl ND 91367278744 20 MG Orally November 21, Active 1 tablet Four times a 2018 day Tylenol # 3 NDC 0 300/30mg PO November 21, Active 1-2 tabs every 6 hrs. 2018 Flonase ND 73644339059 50 MCG/ACT Jul 26, Active 2 spray in Nasally Once a 2018 each day nostril Promethazine HCl ND 54590047997 50 MG Orally November 21, Active 1 tablet every 6 hrs 2016 as needed Gabapentin ND 14424132758 600 MG Orally Jul 26, Active 1 capsule Three times a 2018 day ProAir HFA ND 28930236777 108 (90 Base) Jul 26, Active 2 puffs as MCG/ACT 2018 needed Inhalation every 6 hrs Keppra ND 77265063484 500 MG Orally Active take two Twice a day -2 tablet(s) by mouth twice a day. Zestoretic ND 63068584659 20-25 MG Orally Jul 26, Active 1 tablet Once a day 2015 HumuLIN 70/30 ND 53354936731 (70-30) 100 Jul 26, Active 10 units KwikPen UNIT/ML 2016 Subcutaneous bid Results Name Result Date Reference Range Unit Abnormality Flag URINALYSIS AUTO W/O SCOPE (11889) ----NIT N [id number] ----URO 1.0 20180219 ----PROTEIN TR 20180219 ----pH 5.5 20180219 ----BLO N 20180219 ----GLUCOSE N 20180219 ----ALBERTO N 20180219 ----BILIRUBIN N 20180219 ----KETONES N [id number] ----SPECIFIC GRAVITY 1.025 20180219 Summary Purpose eClinicalWorks Submission
--- OUTSIDE RECORDS SUMMARY | 2018-04-19 13:37 | XMS REPORT ---
[...] Medications Results No Known Results Summary Purpose 2 [employer] Submission
--- OUTSIDE RECORDS SUMMARY | 2018-04-19 13:37 | XMS REPORT ---
:1975 Author Organization eClinicalWorks Care Team Providers Name Role Phone Jackelyn Hunt Provider Role Unavailable Allergies, Adverse Reactions, Alerts Substance Reaction Event Type penicillin anaphylaxis Drug Allergy Zofran anaphylaxis Drug Allergy Iodine anaphylaxis Drug Allergy Diazepam anaphylaxis Drug Allergy Aspirin anaphylaxis Drug Allergy Problems Problem Type Condition Code Onset Dates Condition Status Assessment Otalgia of both ears H92.03 Active Problem Secondary diabetes with peripheral E13.42 Active neuropathy Assessment Acute pain of right shoulder M25.511 Active Problem Diabetes type 2, controlled E11.9 Active Problem Mixed hyperlipidemia E78.2 Active Problem Morbid obesity E66.01 Active Problem Other specified diabetes mellitus E13.42 Active with diabetic polyneuropathy Problem Ulcerative colitis K51.90 Active Problem Epilepsy G40.909 Active Problem Accelerated essential hypertension I10 Active Medications Medication Code Code Instructions Start End Status Dosage System Date Date HumuLIN 70/30 [facility] 07158893399 (70-30) 100 Jul 26, Active 10 units KwikPen UNIT/ML 2016 Subcutaneous bid ProAir HFA [facility] 31790812866 108 (90 Base) Jul 26, Active 2 puffs as MCG/ACT 2018 needed Inhalation every 6 hrs Keppra [facility] 22158476624 500 MG Orally Active take two Twice a day -2 tablet(s) by mouth twice a day. Gabapentin ND 50224910855 600 MG Orally Jul 26, Active 1 capsule Three times a 2018 day Zestoretic ND 41425020867 20-25 MG Orally Jul 26, Active 1 tablet Once a day 2015 Bentyl ND 13115571976 20 MG Orally November 21, Active 1 tablet Four times a 2018 day Tylenol # 3 NDC 0 300/30mg PO November 21, Active 1-2 tabs every 6 hrs. 2018 Promethazine HCl ND 08881752323 50 MG Orally November 21, Active 1 tablet every 6 hrs 2016 as needed Flonase NDC 44017090614 50 MCG/ACT Jul 26, Active 2 spray in Nasally Once a 2018 each day nostril Results No Known Results Summary Purpose eClinicalWorks Submission
--- NOTE | 2018-04-19 18:11 | RAD REPORT ---
EXAM DESCRIPTION: US - Follow Up Breast Axilla Ltd - 04/19/2018 5:44 pm CLINICAL HISTORY: Palpable mass, redness of the skin, history of breast abscesses FINDINGS: In the lower inner quadrant left breast area of concern there is a 2.5 x 1.8 x 0.6 area of diminished echogenicity. This is heterogeneous. Mass sits approximately 1 centimeter deep to the ski n surface. Abscess is the most likely etiology. IMPRESSION: Approximately 2.5 centimeter abscess lower inner quadrant left breast.
--- NOTE | 2018-04-19 18:20 | EDPHYS ---
Physician Documentation [facility] Name: Britt Bower Age: 42 yrs Sex: Female : 1975 Arrival Date: 04/19/2018 Time: 13:36 Bed 25 Private MD: CHARISSE CORDOBA ED Physician Mono Jordan HPI: 04/19 17:11 This 42 yrs old Female presents to ER via Ambulatory with complaints of rn Breast Problem. 17:11 Reports left breast redness/swelling, began suddenly today, no trauma, woke up fine rn without skin changes, not sure if bitten, no fever. . Onset: The symptoms/episode began/occurred today. Severity of symptoms: At their worst the symptoms were mild in the emergency department the symptoms are unchanged. The patient has not experienced similar symptoms in the past. The patient has not recently seen a physician. Historical: - Allergies: 13:57 Amoxicillin; hb 13:57 Aspirin; hb 13:57 Iodine; hb 13:57 Morphine; hb 13:57 PENICILLINS; hb 13:57 Zofran; hb - Home Meds: 20:37 Albuterol Inhl 2 puffs per day PRN [Active]; flonace 2 puffs/day [Active]; gabapentin rv 300 mg Oral cap 1 cap 2 times a day. for Neuropathic Pain [Active]; Humulin 70/30 100 unit/mL (70-30) Sub-Q tab 5 units twice a day for Type 2 Diabetes Mellitus [Active]; levetiracetam 500 mg Oral tab 1 tab 4 times a day for Tonic-Clonic Epilepsy Treatment Adjunct [Active]; lisinopril-hydrochlorothiazide 20-25 mg Oral tab 1 tab once daily for Hypertension [Active]; - PMHx: 20:37 Asthma; Diabetes - IDDM; epilepsy; history of stroke; Hypertension; neuropathy; rv - PSHx: 20:37 None; rv - Immunization history:: Adult Immunizations unknown. - Family history:: not pertinent. - Social history:: Smoking status: unknown. - Ebola Screening: : Patient negative for fever greater than or equal to 101.5 degrees Fahrenheit, and additional compatible Ebola Virus Disease symptoms Patient denies exposure to infectious person Patient denies travel to an Ebola-affected area in the 21 days before illness onset. - Hospitalizations: : No recent hospitalization is reported. ROS: 17:11 Constitutional: Negative for fever, chills, and weight loss, Skin: + left breast rn swelling and tenderness Exam: 17:11 Constitutional: This is a well developed, well nourished patient who is awake, alert, rn and in no acute distress. Chest/axilla: Left medial breast with mild erythema, + subcutaneous nodule, mild fluctuance, + small ecchymosis, total area approx 3-4 inches of irregular border. + mild tenderness. Vital Signs: 13:57 BP 144 / 89; Pulse 73; Resp 18; Temp 97.3; Pulse Ox 98% on R/A; Weight 96.16 kg; Height hb 5 ft. 0 in. (152.40 cm); Pain 9/10; 15:45 BP 148 / 96; Pulse 68; Resp 17; Pulse Ox 98% on R/A; mh5 17:55 BP 123 / 87; Pulse 65; Resp 18; Pulse Ox 99% on R/A; aj1 20:32 BP 129 / 90; Pulse 72; Pulse Ox 99% on R/A; rv 13:57 Body Mass Index 41.40 (96.16 kg, 152.40 cm) hb MDM: 16:30 Patient medically screened. rn 18:12 Differential Diagnosis abscess, phlegmon, cellulitis. Data reviewed: vital signs, rn nurses notes, lab test result(s), radiologic studies, ultrasound, and as a result, I will admit patient. Counseling: I had a detailed discussion with the patient and/or guardian regarding: the historical points, exam findings, and any diagnostic results supporting the discharge/admit diagnosis, lab results, radiology results, the need for further work-up and treatment in the hospital. Response to treatment: the patient's symptoms have mildly improved after treatment. Admission orders: after a detailed discussion of the patient's condition and case, the admit orders are written by me. ED course: Consulted Dr. Shaw, requests admit to hospitalist and npo after midnight, abx, and OR drainage tomorrow.. 04/19 17:21 Order name: CBC with Diff; Complete Time: 18:43 rn 04/19 17:21 Order name: Basic Metabolic Panel rn 04/19 17:08 Order name: Follow Up Breast Axilla Ltd; Complete Time: 18:18 EDMS 04/19 18:17 Order name: Blood Culture Adult (2) rn 04/19 18:15 Order name: EKG; Complete Time: 18:15 rn 04/19 18:15 Order name: EKG - Nurse/Tech; Complete Time: 18:49 rn 04/19 18:22 Order name: CONS Physician Consult EDLA 04/19 18:22 Order name: NPO EDLA 04/19 18:23 Order name: Accucheck; Complete Time: 18:38 rn Administered Medications: 20:29 Drug: Clindamycin 600 mg {Note: mid line, right upper arm.} Route: IVPB; Infused Over: rv 30 mins; Site: Other; 20:30 Follow up: IV Status: Infusion continued upon admission rv Point of Care Testing: Blood Glucose: 18:39 Blood Glucose: 83 mg/dL; aj1 Ranges: Critical Glucose Levels:Adult <50 mg/dl or >400 mg/dl <40 mg/dl or >180 mg/dl Disposition: 04/19/18 18:20 Hospitalization ordered by Samanta Villa for Observation. Preliminary diagnosis is Left breast abscess with cellulitis. - Bed requested for Telemetry/MedSurg (observation). - Status is Observation. rv - Condition is Stable. - Problem is new. - Symptoms have improved. UTI on Admission? No Signatures: Dispatcher [employer] [facility] Yesika Alejo RN RN Mono Jordan MD MD rn Baxter, Heather, Kemar Cabrera RN, RN RN rv Corrections: (The following items were deleted from the chart) 17:08 16:55 Extremity Nonvascular Limited ordered. [facility] 18:20 17:11 Constitutional: This is a well developed, well nourished patient who is awake, rn alert, and in no acute distress. Chest/axilla: Left medial breast with mild erythema, + subcutaneous nodule, no fluctuance, + small ecchymosis, total rio approx 3-4 inches of irregular border. + mild tenderness. rn 19:25 18:20 Hospitalization Ordered by Samanta Villa MD for Observation. Preliminary dw diagnosis is Left breast abscess with cellulitis. Bed requested for Telemetry/MedSurg (observation). Status is Observation. Condition is Stable. Problem is new. Symptoms have improved. UTI on Admission? No. rn 20:38 19:25 04/19/2018 18:20 Hospitalization Ordered by Samanta Villa MD for Observation. rv Preliminary diagnosis is Left breast abscess with cellulitis. Bed requested for Telemetry/MedSurg (observation). Status is Observation. Condition is Stable. Problem is new. Symptoms have improved. UTI on Admission? No. dw
--- NOTE | 2018-04-19 18:20 | ER ---
Nurse's Notes [facility] Name: Britt Bower Age: 42 yrs Sex: Female : 1975 Arrival Date: 04/19/2018 Time: 13:36 Bed 25 Private MD: CHARISSE CORDOBA Diagnosis: Left breast abscess with cellulitis Presentation: 04/19 13:53 Presenting complaint: Patient states: Left breast pain and swelling upon waking today. hb medial aspect of left breast is reddened and tender and patient states there is a knot on the breast. Transition of care: patient was not received from another setting of care. Onset of symptoms was April 19, 2018. Risk Assessment: Do you want to hurt yourself or someone else? Patient reports no desire to harm self or others. 13:53 Method Of Arrival: Ambulatory hb 13:53 Acuity: DUKE 3 hb 20:33 Initial Sepsis Screen: Does the patient meet any 2 criteria? No. Patient's initial rv sepsis screen is negative. Does the patient have a suspected source of infection? No. Patient's initial sepsis screen is negative. Care prior to arrival: None. Historical: - Allergies: 13:57 Amoxicillin; hb 13:57 Aspirin; hb 13:57 Iodine; hb 13:57 Morphine; hb 13:57 PENICILLINS; hb 13:57 Zofran; hb - Home Meds: 20:37 Albuterol Inhl 2 puffs per day PRN [Active]; flonace 2 puffs/day [Active]; gabapentin rv 300 mg Oral cap 1 cap 2 times a day. for Neuropathic Pain [Active]; Humulin 70/30 100 unit/mL (70-30) Sub-Q tab 5 units twice a day for Type 2 Diabetes Mellitus [Active]; levetiracetam 500 mg Oral tab 1 tab 4 times a day for Tonic-Clonic Epilepsy Treatment Adjunct [Active]; lisinopril-hydrochlorothiazide 20-25 mg Oral tab 1 tab once daily for Hypertension [Active]; - PMHx: 20:37 Asthma; Diabetes - IDDM; epilepsy; history of stroke; Hypertension; neuropathy; rv - PSHx: 20:37 None; rv - Immunization history:: Adult Immunizations unknown. - Family history:: not pertinent. - Social history:: Smoking status: unknown. - Ebola Screening: : Patient negative for fever greater than or equal to 101.5 degrees Fahrenheit, and additional compatible Ebola Virus Disease symptoms Patient denies exposure to infectious person Patient denies travel to an Ebola-affected area in the 21 days before illness onset. - Hospitalizations: : No recent hospitalization is reported. Screenin:37 Abuse screen: Denies threats or abuse. Denies injuries from another. Nutritional aj1 screening: No deficits noted. Tuberculosis screening: No symptoms or risk factors identified. 20:37 Fall Risk None identified. rv Assessment: 16:37 General: Appears in no apparent distress. uncomfortable, Behavior is calm, cooperative, aj1 appropriate for age. Pain: Complains of pain in left breast Pain does not radiate. Pain currently is 9 out of 10 on a pain scale. Neuro: Level of Consciousness is awake, alert, obeys commands. Cardiovascular: Patient's skin is warm and dry. Respiratory: Airway is patent Respiratory effort is even, unlabored, Respiratory pattern is regular, symmetrical. GI: No signs and/or symptoms were reported involving the gastrointestinal system. : No signs and/or symptoms were reported regarding the genitourinary system. EENT: No signs and/or symptoms were reported regarding the EENT system. Derm: left lower medial breast has an area that is dark red, with some blue bruising noted as well. Patient states that this area was not there last night, and denies any injury to the area. Musculoskeletal: No signs and/or symptoms reported regarding the musculoskeletal system. Circulation, motion, and sensation intact. 17:55 Reassessment: Patient appears in no apparent distress at this time. No changes from aj1 previously documented assessment. Patient and/or family updated on plan of care and expected duration. Pain level reassessed. Patient is alert, oriented x 3, equal unlabored respirations, skin warm/dry/pink. 18:39 Reassessment: Patient appears in no apparent distress at this time. No changes from aj1 previously documented assessment. Patient and/or family updated on plan of care and expected duration. Pain level reassessed. Patient is alert, oriented x 3, equal unlabored respirations, skin warm/dry/pink. Vital Signs: 13:57 BP 144 / 89; Pulse 73; Resp 18; Temp 97.3; Pulse Ox 98% on R/A; Weight 96.16 kg; Height hb 5 ft. 0 in. (152.40 cm); Pain 9/10; 15:45 BP 148 / 96; Pulse 68; Resp 17; Pulse Ox 98% on R/A; mh5 17:55 BP 123 / 87; Pulse 65; Resp 18; Pulse Ox 99% on R/A; aj1 20:32 BP 129 / 90; Pulse 72; Pulse Ox 99% on R/A; rv 13:57 Body Mass Index 41.40 (96.16 kg, 152.40 cm) hb ED Course: 13:36 Patient arrived in ED. sb2 13:37 CHARISSE CORDOBA is Private Physician. sb2 13:57 Triage completed. hb 13:57 Arm band placed on right wrist. Patient placed in waiting room. hb 16:30 Mono Jordan MD is Attending Physician. rn 16:37 Coreen Hernandez RN is Primary Nurse. aj1 16:37 Patient has correct armband on for positive identification. Bed in low position. Call aj1 light in reach. Side rails up X 1. 16:37 No provider procedures requiring assistance completed. aj1 17:45 Follow Up Breast [facility]illa Ltd In Process Unspecified. EDMS 18:00 Missed attempt(s): 24 gauge in left hand. Bleeding controlled, band aid applied, jp3 catheter tip intact. 18:10 Missed attempt(s): 24 gauge in left wrist. Bleeding controlled, band aid applied, jp3 catheter tip intact. 18:15 Missed attempt(s): 22 gauge in right antecubital area. Bleeding controlled, band aid aj1 applied, catheter tip intact. 18:19 Samanta Villa MD is Hospitalizing Provider. rn 18:30 Missed attempt(s): 24 gauge in right wrist. by Cindy Grimes, RN. Bleeding controlled, band aj1 aid applied, catheter tip intact. 18:35 Missed attempt(s): 24 gauge in left hand. by Cindy Grimes, RN. Bleeding controlled, band aj1 aid applied, catheter tip intact. 18:56 EKG done, by ED staff, reviewed by Mono Jordan MD. jp3 18:58 Placed in gown. Warm blanket given. Pillow given. Pulse ox on. NIBP on. jp3 19:45 Inserted 18 gauge 10 cm midline to right upper basilic vein on first attempt. Line with fc good blood return and flushes well. 20:37 Patient admitted, IV remains in place. intact. rv Administered Medications: 20:29 Drug: Clindamycin 600 mg {Note: mid line, right upper arm.} Route: IVPB; Infused Over: rv 30 mins; Site: Other; 20:30 Follow up: IV Status: Infusion continued upon admission rv Point of Care Testing: Blood Glucose: 18:39 Blood Glucose: 83 mg/dL; aj1 Ranges: Outcome: 18:20 Decision to Hospitalize by Provider. rn 20:35 Admitted to Med/surg accompanied by nurse, via wheelchair, room 206, with chart, Report rv called to CATHY SIN 20:35 Condition: good 20:35 Instructed on the need for admit. 20:38 Patient left the ED. rv Signatures: Dispatcher [employer] EDCoreen Valdez RN RN aj1 Megan Prakash RN RN Mono Andersen MD MD rn Baxter, Heather, RN RN hb Martinez, Maria 5 Iona Domingo 2 Kemar Brody RN RN rv Dustin Koenig jp3
[2018-04-19 18:39] LABS: Absolute Lymphocytes (CBC) 2.5 K/uL (0.7-4.9); Absolute Monocytes 0.5 K/uL (0.1-1.3); Absolute Neutrophil 4.2 K/uL (1.8-8.0); Basophils % 1.4 % (0-1.3); Eosinophils % 2.4 % (0-4.4); Hematocrit 37.7 % (36.0-45.0); Lymphocytes % 33.6 % (15.3-44.8); MCH 31.1 pg (27.0-35.0); MCV 88.3 fL (80-100); MPV 8.4 fL (7.6-11.3); Monocytes % 6.6 % (3.3-12.3); RBC Red Blood Cell Count 4.27 M/uL (3.86-4.86)
[2018-04-19 19:00] LABS: BUN Blood Urea Nitrogen 12 mg/dL (7-18); Bicarbonate 24 mmol/L (21-32); Glucose Level 94 mg/dL (74-106); Potassium 3.9 mmol/L (3.5-5.1); Sodium Level 142 mmol/L (136-145)
--- NOTE | 2018-04-19 19:38 | EKG ---
Test Date: 2018-04-19 Test Time: 18:50:42 House Player: ZOYA MEASUREMENT RESULTS: Intervals: Rate: 63 DC: 142 QRSD: 84 QT: 452 QTc: 462 [place]: P: 69 DC: 142 QRS: 17 T: 22 INTERPRETIVE STATEMENTS: Normal sinus rhythm Normal ECG Compared to ECG 09/28/2017 09:59:32 No significant changes Electronically Signed On 04-19-18 19:37:50 CDT by Benjamín Mendoza
--- NOTE | 2018-04-19 19:56 | P.HP ---
Certification for Inpatient Patient admitted to: Observation With expected LOS: <2 Midnights Practitioner: I am a practitioner with admitting privileges, knowledge of patient current condition, hospital course, and medical plan of care. Services: Services provided to patient in accordance with Admission requirements found in Title 42 Section 412.3 of the Code of Federal Regulations Patient History Date of Service: 04/19/18 Reason for admission: Left breast abscess History of Present Illness: Ms Bower is a 42-year-old woman with history of type 1 diabetes mellitus, hypertension, seizure disorder, previous infection with MRSA, who this morning woke up with tenderness on her left breast. She also noticed a redness discoloration. She denied any fever or chills. She denied also any trauma, or previous laceration in hair skin around of the affected area. She has never had this problem in the past. ER workup shows normal WBC count. She was afebrile at presentation. Breast ultrasound was remarkable for an approximately 2.5 centimeter abscess lower inner quadrant left breast. Allergies aspirin Allergy (Severe, Verified 01/29/17 17:04) Anaphylaxis iodine Allergy (Severe, Verified 01/29/17 17:04) Shortness of breath Penicillins Allergy (Severe, Verified 01/29/17 17:04) Anaphylaxis ondansetron HCl [From Zofran] Allergy (Intermediate, Verified 01/29/17 17:04) Hives diazepam [From Valium] Allergy (Mild, Verified 01/29/17 17:04) Itching amoxicillin Allergy (Unverified 11/18/17 23:40) Unknown morphine Allergy (Unverified 02/11/17 12:47) Unknown piperacillin sodium [From Zosyn] Adverse Reaction (Mild, Verified 01/29/17 17:04 ) Hives tazobactam sodium [From Zosyn] Adverse Reaction (Mild, Verified 01/29/17 17:04) Hives amoxici Allergy (Mild, Uncoded 03/10/17 09:09) Unknown A Allergy (Uncoded 02/20/17 10:08) Unknown amoxicil Allergy (Uncoded 02/23/17 21:24) Unknown amoxicilli Allergy (Uncoded 09/28/17 14:16) Unknown Amoxicillin Allergy (Uncoded 02/27/17 00:27) Unknown aspirin Allergy (Uncoded 01/29/17 17:04) THROAT SWELLS Doxycycline Allergy (Uncoded 01/29/17 17:04) Unknown iodine Allergy (Uncoded 01/29/17 17:04) Unknown IODINE; IODI Allergy (Uncoded 01/29/17 17:04) THROAT SWELL IODINE; IODINE CONTAINI Allergy (Uncoded 01/29/17 17:04) THROAT SWELL IODINE; IODINE CONTAININ Allergy (Uncoded 01/29/17 17:04) THROAT SWELL Piper Allergy (Uncoded 02/27/17 00:27) Unknown tazobacta Allergy (Uncoded 02/27/17 00:27) Unknown tazobactam s Allergy (Uncoded 09/28/17 14:16) Unknown tazobactam sodium Allergy (Uncoded 11/18/17 23:40) Unknown Zofran Allergy (Uncoded 01/29/17 17:04) Unknown Home medications list reviewed: Yes Home Medications: Dicyclomine [Bentyl*] 20 mg PO Q6H 01/22/17 Gabapentin [Neurontin*] 600 mg PO BID 01/22/17 Hum Insulin NPH/Reg Insulin Hm [Humulin 70-30 Vial] See Protocol SQ BID Levetiracetam [Keppra] 1,000 mg PO BID 01/22/17 Promethazine HCl 50 mg PO Q6HP PRN 01/22/17 Lisinopril [Prinivil*] 5 mg PO DAILY #30 tab 01/27/17 - Past Medical/Surgical History Diabetic: Yes -: DM -: Osteoperosis -: TIA last May -: HTN -: Neuropathy -: Heart Murmur -: seizures -: Tubal -: Cholecystectomy -: Incision and Debridement -: Hysterectomy -: csection - Family History Mother -: Hypertension, Cancer Notes: brain ca Father -: Hypertension, Other (see notes) Notes: thyroid disease Brother -: Other (see notes) Notes: thyroid issues - Social History Smoking Status: Never smoker Alcohol use: No CD- Drugs: No Caffeine use: Yes Place of Residence: Home Review of Systems 10-point ROS is otherwise unremarkable Physical Examination - Physical Exam General: Alert, In no apparent distress HEENT: Atraumatic, PERRLA, Mucous membr. moist/pink, EOMI, Sclerae nonicteric Neck: Supple, 2+ carotid pulse no bruit, No LAD, Without JVD or thyroid abnormality Respiratory: Clear to auscultation bilaterally, Normal air movement Cardiovascular: Regular rate/rhythm, Normal S1 S2 Gastrointestinal: Normal bowel sounds, No tenderness Musculoskeletal: No tenderness Integumentary: No rashes Neurological: Normal gait, Normal speech, Normal strength at 5/5 x4 extr, Normal tone, Normal affect Lymphatics: No axilla or inguinal lymphadenopathy Female Exam - Breasts Breasts: Other (Erythematose, tender to palpation on the inner area of the left breast.) Assessment and Plan - Problems (Diagnosis) (1) Abscess Current Visit: Yes Status: Acute (2) Cellulitis Onset Date: 01/23/17 Current Visit: No Status: Acute Qualifiers: Site of cellulitis: other site Qualified Code(s): L03.818 - Cellulitis of other sites (3) Diabetes mellitus Onset Date: 01/23/17 Current Visit: No Status: Chronic Qualifiers: Diabetes mellitus type: type 1 Diabetes mellitus complication status: with unspecified complications Qualified Code(s): E10.8 - Type 1 diabetes mellitus with unspecified complications (4) Hypertension Current Visit: No Status: Chronic Qualifiers: Hypertension type: essential hypertension Qualified Code(s): I10 - Essential (primary) hypertension (5) Obesity Current Visit: No Status: Chronic Qualifiers: Obesity type: unspecified obesity type Qualified Code(s): E66.9 - Obesity, unspecified (6) Seizure disorder Onset Date: 01/23/17 Current Visit: No Status: Chronic - Plan The patient will be admitted to the hospital due to left breast cellulitis/ abscess. Will start empiric broad-spectrum antibiotic with IV vancomycin and aztreonam (patient is allergic to penicillin). Surgeon was consulted, and he will see the patient in the morning for I&D. - Advance Directives Does patient have a Living Will: No Does patient have a Durable POA for Healthcare: Yes - Code Status/Comfort Care Code Status Assessed: Yes Code Status: Full Code
[2018-04-19] MEDS ORDERED: CLINDAMYCIN 600MG/D5W 600 MG/50 ML BAG IV ONE (20:31)
[2018-04-19] MEDS ORDERED: ONDANSETRON 4 MG/2 ML VIAL IV PRN (20:44)
[2018-04-19] MEDS ORDERED: VANCOMYCIN 1.75 GM in NA CHLORIDE 0.9% 500 ML IVPB ONE (21:00)
[2018-04-19 21:04] VITALS: BMI 40.6
[2018-04-19] MEDS: VANCOMYCIN 1.75 GM in NA CHLORIDE 0.9% 500 ML IVPB SCH (22:00)
[2018-04-19] MEDS ORDERED: VANCOMYCIN 1 GM/VIAL ONE (22:39)
[2018-04-19] MEDS ORDERED: NA CHLORIDE 0.9% 500 ML ONE (22:39)
[2018-04-19] MEDS: NA CHLORIDE 0.9% 1,000 ML IV SCH (22:49)
[2018-04-19] MEDS: CODEINE 30MG/APAP 300MG TAB PO PRN (23:05)
[2018-04-19 23:19] LABS: Urine Appearance CLEAR; Urine Bilirubin NEGATIVE (NEG); Urine Blood NEGATIVE (NEG); Urine Color YELLOW; Urine Glucose NEGATIVE (NEG); Urine Protein NEGATIVE (NEG); Urine Specific Gravity 1.015 (1.005-1.030); Urine Urobilinogen 0.2 mg/dL (0.2-1.0)
[2018-04-19 23:25] LABS: Urine Microscopic Reflex NO UMIC
[2018-04-20] MEDS ORDERED: AZTREONAM 1 GM/VIAL IV SCH (01:00)
[2018-04-20] MEDS ORDERED: AZTREONAM 1 GM/VIAL ONE (01:17)
[2018-04-20] MEDS ORDERED: NA CHLORIDE 0.9% 50 ML ONE (01:19)
[2018-04-20] MEDS ORDERED: DIPHENHYDRAMINE 25 MG TAB/CAP PO PRN (01:44)
[2018-04-20] MEDS: AZTREONAM 1 GM/50 ML BAG IV SCH ×2 (02:30→09:00)
[2018-04-20 05:15] LABS: Absolute Lymphocytes (CBC) 1.7 K/uL (0.7-4.9); Absolute Monocytes 0.3 K/uL (0.1-1.3); Absolute Neutrophil 4.3 K/uL (1.8-8.0); Basophils % 0.4 % (0-1.3); Eosinophils % 1.8 % (0-4.4); Hematocrit 35.1 % (36.0-45.0); Lymphocytes % 26.6 % (15.3-44.8); MCH 31.7 pg (27.0-35.0); MCV 89.2 fL (80-100); MPV 8.2 fL (7.6-11.3); Monocytes % 5.2 % (3.3-12.3); RBC Red Blood Cell Count 3.93 M/uL (3.86-4.86)
[2018-04-20 05:36] LABS: Bilirubin Total 0.4 mg/dL (0.2-1.0); Potassium 3.5 mmol/L (3.5-5.1); Protein, Total 6.2 g/dL (6.4-8.2)
[2018-04-20] MEDS: INSULIN -REGULAR HUMAN 50 UNIT/0.5 ML ML SQ SCH ×5 (05:43→21:00)
[2018-04-20] MEDS: NA CHLORIDE 0.9% 1,000 ML IV SCH ×2 (05:43→16:30)
[2018-04-20] MEDS ORDERED: PNEUMOCOCCAL VACCINE 0.5 ML IMVAC ONE (06:00)
[2018-04-20] MEDS ORDERED: INFLUENZA VACCINE (for 3y+) 0.5 ML DOSE IMVAC ONE (06:00)
[2018-04-20] MEDS: Levofloxacin500mg IV 500 MG/100 ML BAG IV SCH (10:49)
[2018-04-20] MEDS ORDERED: MIDAZOLAM HCL 2 MG/2 ML INJ ONE (11:56)
[2018-04-20] MEDS ORDERED: PROPOFOL 200 MG/20 ML VIAL IV ONE (11:56)
[2018-04-20] MEDS ORDERED: FENTANYL CITR 100 MCG/2 ML ONE (11:57)
[2018-04-20] MEDS ORDERED: LIDOCAINE 2% MPF 5 ML VIAL ONE (11:57)
[2018-04-20] MEDS ORDERED: ONDANSETRON HCL 40 MG/20 ML VIAL ONE (11:59)
[2018-04-20] MEDS ORDERED: Ringers Lactate 1,000 ML IV ONE (13:04)
--- NOTE | 2018-04-20 13:04 | P.OP ---
Preoperative diagnosis: Left Breast Abscess Postoperative diagnosis: Hematoma Primary procedure: I and D Left Breast Hematoma Anesthesia: Gen Estimated blood loss: min Specimen: clots and breast tissue Findings: as above Complications: None Transferred to: Recovery Room Condition: Good
[2018-04-20] MEDS ORDERED: KETOROLAC 30 MG/ML INJ ONE (13:08)
[2018-04-20] MEDS: MEPERIDINE HCL 50 MG/ML AMP ONE ×4 (13:25→13:48)
[2018-04-20] MEDS: PROMETHAZINE 25 MG/ML VIAL ONE ×2 (13:34→13:48)
--- NOTE | 2018-04-20 14:05 | PREOPHP ---
Date of Admission: 04/19/2018 Reason: Left breast abscess. History Of Present Illness: The patient is a 42-year-old female with a previous history of MRSA infe ction in her axilla. She awoke yesterday morning with tenderness to her left breast. She noticed so me redness and discoloration. No fever or chills. No discharge. No history of trauma. She has nev er had a mammogram. No sore throat, runny nose, cough, headaches, or dizziness. No chest pain. Review of Systems: Otherwise unremarkable. Past Medical History: Significant for diabetes, osteoporosis, hypertension, neuropathy, seizures, TI A. Past Surgical History: Tubal surgery, cholecystectomy, incision and removal of axilla absc ess, hysterectomy, . Allergies: REVIEWED AND INCLUDE ZOFRAN, ZOSYN, TAZOBACTAM, IODINE, DOXYCYCLINE, ASPIRIN, AMOXICILLIN , DIAZEPAM, MORPHINE. Social History: She does not smoke. Denies drinking. Family History: Significant for brain cancer in the mother. Thyroid disease in the father and hyper tension. Physical Examination: Vital Signs: Stable. She is afebrile. General: She is awake, alert, and oriented x3. Head and Neck: Cranial nerves 2 through 12 grossly within normal limits. No neck masses. No JVD. Throat clear. Neck is supple. Chest: Clear. Heart: S1, S2. Abdomen: Soft. Extremities: Neurovascularly intact. Neuro: Nonfocal. Breast: On the left breast in the inner lower aspect of it, there is approximately a 4 cm area of re dness more like ecchymosis associated with it and next to it as well. There is a mass palpable under neath it, approximately 3 cm. Laboratory Data: White count is normal. There is no left shift. Glucose was slightly elevated at 1 07 on the electrolytes. She had ultrasound done of the left breast, which shows approximately 2.5 cm abscess lower inner quadrant of the left breast. Assessment: The patient has abscess in the left breast and may be a hematoma, I am not sure at this point. Recommendations: Admit, n.p.o., IV fluid, IV antibiotic, to the OR for incision and drainage of a le ft breast mass. The patient understands the risks, benefits, and alternatives and agrees to procedur e. Please note, should there be abnormal tissue present, we will need to biopsy it and once her woun ds healed, the patient will need a bilateral mammogram. Plan of care discussed in detail with the neetu becerril. NANY/VIOLA Voice ID: [id number]
--- NOTE | 2018-04-20 15:38 | OP ---
Date of Procedure: 04/20/2018 Surgeon: Clayton Shaw MD Preoperative Diagnosis: Left breast mass. Postoperative Diagnosis: Left breast hematoma. Procedure Performed: Incision and drainage of left breast hematoma. Estimated Blood Loss: Minimal. Specimen: Hematoma and tissue surrounding it. Findings: Above. Anesthesia: General. Complications: None. Disposition: The patient tolerated the procedure in stable condition and taken to Recovery in good g eneral condition. Procedure In Detail: The patient was brought to the OR and placed in the supine position. General a nesthesia was begun. The patient was prepped and draped in the usual sterile fashion. Marcaine 0.5% was infiltrated locally and a 15-blade was used to make a 3 cm incision over the palpable mass in th e inner lower quadrant of the left breast. Subcu tissue divided. Multiple clots were removed and se nt to Pathology as well as some breast tissue that came with the clots. All these were sent to Patho logy. Wound was irrigated. Bleeding controlled with cautery. A 3-0 chromic used to loosely reappro ximate subcutaneous tissue. Skin left open for drainage purposes. Sterile dressing was applied. The patient was awakened and taken to Recovery in good general condition. /MODL Voice ID: [id number] Report ID: [id number]
[2018-04-20] MEDS: VANCOMYCIN 1.75 GM in NA CHLORIDE 0.9% 500 ML IVPB SCH (16:31)
[2018-04-20] MEDS: CODEINE 30MG/APAP 300MG TAB PO PRN ×2 (17:11→22:03)
[2018-04-20] MEDS ORDERED: GLUCAGON 1 MG/VIAL IM PRN (17:55)
[2018-04-20] MEDS ORDERED: D50W 25 GM/50 ML SYRINGE IV PRN (17:55)
--- NOTE | 2018-04-20 17:55 | P.PN ---
Subjective Date of Service: 04/20/18 Chief Complaint: Left breast hematoma Subjective: Improving Review of Systems 10-point ROS is otherwise unremarkable Integumentary: Other (left breast hematoma) Physical Examination - Vital Signs Temperature: 97.7 F Blood Pressure: 124/68 Pulse: 75 Respirations: 16 Pulse Ox (%): 97 - Physical Exam General: Alert, In no apparent distress HEENT: Atraumatic, PERRLA, EOMI Neck: Supple, JVD not distended Respiratory: Clear to auscultation bilaterally, Normal air movement Cardiovascular: Regular rate/rhythm, Normal S1 S2 Gastrointestinal: Normal bowel sounds, No tenderness Musculoskeletal: No tenderness Integumentary: No rashes Neurological: Normal speech, Normal tone, Normal affect Lymphatics: No axilla or inguinal lymphadenopathy Assessment & Plan - Problems (Diagnosis) (1) Posttraumatic hematoma of left breast Current Visit: Yes Status: Acute Plan: s/p incision and drainage per Dr. Shaw. She would like to stay overnight. She just had surgery. Will d/c in the am with keflex and pain meds Qualifiers: Encounter type: subsequent encounter Qualified Code(s): S20.02XD - Contusion of left breast, subsequent encounter (2) Diabetes mellitus Onset Date: 01/23/17 Current Visit: No Status: Chronic Plan: continue home medications and morphine Qualifiers: Diabetes mellitus type: type 1 Diabetes mellitus complication status: with unspecified complications Qualified Code(s): E10.8 - Type 1 diabetes mellitus with unspecified complications Discharge Plan: Home Plan to discharge in: 24 Hours - Code Status/Comfort Care Code Status Assessed: No Code Status: Full Code Physician Review: Patient Assessed, Agree with Above Assessment and Plan Critical Care: No Time Spent Managing Pts Care (In Minutes): 25
[2018-04-20 23:56] VITALS: O2SAT 98
[2018-04-21] MEDS: NA CHLORIDE 0.9% 1,000 ML IV SCH (05:22)
[2018-04-21 05:29] VITALS: TEMP 97.1
[2018-04-21] MEDS: INSULIN -REGULAR HUMAN 50 UNIT/0.5 ML ML SQ SCH ×2 (07:30→11:30)
[2018-04-21] MEDS ORDERED: ACETAMINOPHEN 325 MG TABLET PO ONE (08:21)
--- NOTE | 2018-04-21 08:48 | P.DS ---
Admission Date: 04/19/18 Discharge Date: 04/21/18 Disposition: ROUTINE DISCHARGE Reason for Admission: Left breast hematoma - Problems (1) Posttraumatic hematoma of left breast Current Visit: Yes Status: Acute Qualifiers: Encounter type: subsequent encounter Qualified Code(s): S20.02XD - Contusion of left breast, subsequent encounter (2) Diabetes mellitus Onset Date: 01/23/17 Current Visit: No Status: Chronic Qualifiers: Diabetes mellitus type: type 1 Diabetes mellitus complication status: with unspecified complications Qualified Code(s): E10.8 - Type 1 diabetes mellitus with unspecified complications Brief History of Present Illness: Patient presented with pain and swelling in her left breast. No history of trauma. She was admitted with a surgical consult. Hospital Course: Patient was taken to the OR by Dr. Shaw. She had mostly blood in the wound. No puss. Was determined to be hematoma rather than an abcess. The patient was kept overnight. She had some trepidations about going home late. Her pain is about a 7/10. She has no fevers or chills. Have advised scheduled dosages of tylenol with tramadol for breakthrough. She would like to avoid narcotics. Will have her follow up with Ava Hunt. Will have her take prophylactic keflex. Vital Signs/Physical Exam: Temp Pulse Resp BP Pulse Ox 97.1 F 71 18 94/54 L 96 04/21/18 04:00 04/21/18 04:00 04/21/18 04:00 04/21/18 04:00 04/21/18 04:00 General: Alert, In no apparent distress HEENT: Atraumatic, PERRLA, EOMI Neck: Supple, JVD not distended Respiratory: Clear to auscultation bilaterally, Normal air movement Cardiovascular: Regular rate/rhythm, Normal S1 S2 Gastrointestinal: Normal bowel sounds, No tenderness Musculoskeletal: No tenderness Integumentary: No rashes Neurological: Normal speech, Normal tone, Normal affect Lymphatics: No axilla or inguinal lymphadenopathy Laboratory Data at Discharge: WBC 6.6 K/uL (4.3-10.9) 04/20/18 04:51 Hgb 12.4 g/dL (12.0-15.0) 04/20/18 04:51 Hct 35.1 % (36.0-45.0) L 04/20/18 04:51 Plt Count 238 K/uL (152-406) 04/20/18 04:51 Sodium 144 mmol/L (136-145) 04/20/18 04:51 Potassium 3.5 mmol/L (3.5-5.1) 04/20/18 04:51 BUN 12 mg/dL (7-18) 04/20/18 04:51 Creatinine 0.80 mg/dL (0.55-1.3) 04/20/18 04:51 Glucose 107 mg/dL (74-106) H 04/20/18 04:51 Total Bilirubin 0.4 mg/dL (0.2-1.0) 04/20/18 04:51 AST 36 U/L (15-37) 04/20/18 04:51 ALT 44 U/L (12-78) 04/20/18 04:51 Alkaline Phosphatase 77 U/L (45-117) 04/20/18 04:51 Home Medications: Albuterol Sulfate [Proair Respiclick] 90 mcg IH DAILY 04/19/18 Codeine/APAP [Tylenol #3*] 1 tab PO Q6HP PRN 04/19/18 Fluticasone Propionate [Flonase Allergy Relief] 1 spray NS DAILY 04/19/18 Gabapentin 600 mg PO TID 04/19/18 Hum Insulin NPH/Reg Insulin Hm [Humulin 70-30 Vial] 10 unit SQ BID 04/19/18 Levetiracetam [Keppra] 1,000 mg PO BID 04/19/18 Lisinopril/Hydrochlorothiazide [Zestoretic 20-25 mg Tablet] 1 each PO DAILY 08/06 Acetaminophen 500 mg PO TID 10 Days #30 tablet 04/21/18 Cephalexin [Keflex] 500 mg PO TID 7 Days #21 capsule 04/21/18 Tramadol HCl [Ultram] 50 mg PO TID PRN #20 tablet 04/21/18 New Medications: Acetaminophen 500 mg PO TID 10 Days #30 tablet Cephalexin [Keflex] 500 mg PO TID 7 Days #21 capsule Tramadol HCl [Ultram] 50 mg PO TID PRN #20 tablet PRN Reason: Pain Scale 5-7 (Moderate) Diet: ADA Activity: Ad dominguez Followup: Clayton Shaw MD [ACTIVE - CAN ADMIT] - 1-2 Weeks Lubna Hunt, POINTER MACHINE OPERATOR [Primary Care Provider] - 1-2 Weeks Physician Review: Patient Assessed, Agree with Above Assessment and Plan Time spent managing pt's care (in minutes): 30
[2018-04-21] MEDS: Levofloxacin500mg IV 500 MG/100 ML BAG IV SCH (09:33)
[2018-04-21] MEDS: VANCOMYCIN 1.75 GM in NA CHLORIDE 0.9% 500 ML IVPB SCH (10:00)
[2018-04-21 10:57] VITALS: BP 106/58
== END 2018-04-21 12:06 | disposition home or self-care (01) ==
LOC: SUATTDRO 13:33 → ER 13:33 → ERHOLD 18:21 → 2ND 20:25
PROVIDERS: ADMIT Family Medicine; ATTEND Internal Medicine
PROC: 0H9U0ZZ Drainage of Left Breast, Open Approach (ICD-10-PCS; principal; 2018-04-20 12:00)
DX: N64.89 Other specified disorders of breast (principal); E11.9 Type 2 diabetes mellitus without complications; M81.0 Age-related osteoporosis without current pathological fracture; I10 Essential (primary) hypertension; E66.9 Obesity, unspecified; Z68.41 Body mass index [BMI] 40.0-44.9, adult; G40.909 Epilepsy, unspecified, not intractable, without status epilepticus; Z86.73 Personal history of transient ischemic attack (TIA), and cerebral infarction without residual deficits; Z23 Encounter for immunization; Z88.0 Allergy status to penicillin; Z88.6 Allergy status to analgesic agent
CPT/HCPCS: 36415; 76642; 80048; 80053; 81003; 82962; 85025; 87040; 87070; 87077; 87186; 87205; 88304; 90670; 93005; 96374; 99285; G0008; G0009; G0378; J2175; J2250; J2405; J2550; J3010; J7030; Q2035

== ENCOUNTER 2018-05-14 18:24 | Emergency (ER) | payer SELFPAY ==
--- OUTSIDE RECORDS SUMMARY | 2018-05-14 18:26 | XMS REPORT ---
[...] Status Dosage System Date Date ProAir HFA [facility] [id number] 108 (90 Base) Jul 26, Active 2 puffs as MCG/ACT 2018 needed Inhalation every 6 hrs Keppra ND 88416966351 500 MG Orally Aug 17, Active 2 tablets every 12 hrs 2018 HumuLIN 70/30 ND 28774343983 (70-30) 100 Jul 26, Active 10 units KwikPen UNIT/ML 2016 Subcutaneous bid Flonase ND 66135303181 50 MCG/ACT Jul 26, Active 2 spray in Nasally Once a 2017 each day nostril Bentyl ND 81159926635 20 MG Orally November 21, Active 1 tablet Four times a 2018 day Gabapentin ND 23890211674 300 MG Orally Jul 26, Active 2 capsule Three times a 2018 before day bedtime Zestoretic ND 96662042528 20-25 MG Orally Jul 26, Active 1 tablet Once a day 2016 Promethazine HCl ND 90690316545 50 MG Orally November 21, Active 1 tablet every 6 hrs 2016 as needed Tylenol # 3 NDC 0 300/30mg PO November 21, Active 1-2 tabs every 6 hrs. 2018 Results Name Result Date Reference Range Unit Abnormality Flag URINALYSIS AUTO W/O SCOPE (95671) ----NIT N 20171113 ----URO 0.2 20171113 ----PROTEIN 1+ 20171113 ----pH 5.5 20171113 ----BLO N 20171113 ----GLUCOSE N 20171113 ----ALBERTO N 20171113 ----BILIRUBIN 1+ 20171113 ----KETONES N 20171113 ----SPECIFIC GRAVITY >=1.030 20171113 Summary Purpose [employer] Submission
--- OUTSIDE RECORDS SUMMARY | 2018-05-14 18:27 | XMS REPORT ---
:1975 Author Organization [employer] Care Team Providers Name Role Phone Ganga Wheeler Provider Role Unavailable Allergies No Known Allergies [...] Medications Results No Known Results Summary Purpose [employer]Clinical[employer] Submission
--- OUTSIDE RECORDS SUMMARY | 2018-05-14 18:27 | XMS REPORT ---
:1975 Author Organization eClinicalWorks Care Team Providers Name Role Phone Judith Hunty Provider Role Unavailable Allergies No Known Allergies [...]
--- OUTSIDE RECORDS SUMMARY | 2018-05-14 18:27 | XMS REPORT ---
[...] Medications Results No Known Results Summary Purpose [email or web address] Submission
--- OUTSIDE RECORDS SUMMARY | 2018-05-14 18:27 | XMS REPORT ---
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 Problem Diabetes type 2, controlled E11.9 Active Problem Mixed hyperlipidemia E78.2 Active Problem Morbid obesity E66.01 Active Problem 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 2018 Levaquin ND 59359235255 500 MG Orally Active 1 tablet Once a day Gabapentin ND 94897120542 600 MG Orally Jul 26, Active 1 capsule Three times a 2018 day Zestoretic ND 50005682646 20-25 MG Orally Jul 26, Active 1 tablet Once a day 2016 Keppra ND 57676555867 500 MG Orally Active take two Twice a day -2 tablet(s) by mouth twice a day. Tramadol HCl ND 23587987029 50 MG Orally Active 1 tablet every 6 hrs as needed Promethazine HCl ND 35677601910 50 MG Orally November 21, Active 1 tablet every 6 hrs 2016 as needed Bentyl ND 11909413503 20 MG Orally November 21, Active 1 tablet Four times a 2018 day HumuLIN 70/30 ND 50868116109 (70-30) 100 Jul 26, Active 10 units KwikPen UNIT/ML 2016 Subcutaneous bid Results No Known Results Summary Purpose [employer]ClinicalWorks Submission
--- OUTSIDE RECORDS SUMMARY | 2018-05-14 18:27 | XMS REPORT ---
[...] Status Dosage System Date Date Bentyl ND 35943537131 20 MG Orally November 21, Active 1 tablet Four times a 2018 day Tylenol # 3 NDC 0 300/30mg PO November 21, Active 1-2 tabs every 6 hrs. 2018 Flonase ND 57251207491 50 MCG/ACT Jul 26, Active 2 spray in Nasally Once a 2018 each day nostril Promethazine HCl ND 43013903359 50 MG Orally November 21, Active 1 tablet every 6 hrs 2016 as needed Gabapentin ND 07424103910 600 MG Orally Jul 26, Active 1 capsule Three times a 2018 day ProAir HFA ND 89126175540 108 (90 Base) Jul 26, Active 2 puffs as MCG/ACT 2018 needed Inhalation every 6 hrs Keppra ND 51237228511 500 MG Orally Active take two Twice a day -2 tablet(s) by mouth twice a day. Zestoretic ND 07173140802 20-25 MG Orally Jul 26, Active 1 tablet Once a day 2015 HumuLIN 70/30 ND 08003401044 (70-30) 100 Jul 26, Active 10 units KwikPen UNIT/ML 2016 Subcutaneous bid Results Name Result Date Reference Range Unit Abnormality Flag URINALYSIS AUTO W/O SCOPE (54626) ----NIT N 20180219 ----URO 1.0 20180219 ----PROTEIN TR 20180219 ----pH 5.5 20180219 ----BLO N 20180219 ----GLUCOSE N 20180219 ----ALBERTO N 20180219 ----BILIRUBIN N 20180219 ----KETONES N 20180219 ----SPECIFIC GRAVITY 1.025 20180219 Summary Purpose [employer]ClinicalWorks Submission
--- OUTSIDE RECORDS SUMMARY | 2018-05-14 18:27 | XMS REPORT ---
[...] Status Dosage System Date Date HumuLIN 70/30 [facility] 74846990492 (70-30) 100 Jul 26, Active 10 units KwikPen UNIT/ML 2016 Subcutaneous bid ProAir HFA [facility] 43108844531 108 (90 Base) Jul 26, Active 2 puffs as MCG/ACT 2018 needed Inhalation every 6 hrs Keppra [facility] 37466675388 500 MG Orally Active take two Twice a day -2 tablet(s) by mouth twice a day. Gabapentin ND 06675147807 600 MG Orally Jul 26, Active 1 capsule Three times a 2018 day Zestoretic ND 89966514522 20-25 MG Orally Jul 26, Active 1 tablet Once a day 2015 Bentyl ND 56046508355 20 MG Orally November 21, Active 1 tablet Four times a 2018 day Tylenol # 3 NDC 0 300/30mg PO November 21, Active 1-2 tabs every 6 hrs. 2018 Promethazine HCl ND 60019201694 50 MG Orally November 21, Active 1 tablet every 6 hrs 2016 as needed Flonase NDC 49019320884 50 MCG/ACT Jul 26, Active 2 spray in Nasally Once a 2018 each day nostril Results No Known Results Summary Purpose [employer]ClinicalWorks Submission
[2018-05-14 19:52] LABS: Urine Blood TRACE (NEG); Urine Glucose NEGATIVE (NEG); Urine Protein NEGATIVE (NEG); Urine Specific Gravity >1.030 (1.005-1.030)
--- NOTE | 2018-05-14 19:55 | RAD REPORT ---
EXAM DESCRIPTION: Mona Shea (2 Views)05/14/2018 7:48 pm CLINICAL HISTORY: Chest pain COMPARISON: September 2017 FINDINGS: The lungs appear clear of acute infiltrate. The heart is normal size IMPRESSION: No acute abnormalities displayed
[2018-05-14] MEDS ORDERED: ONDANSETRON 4 MG (ODT) TAB ONE (20:24)
--- NOTE | 2018-05-14 20:35 | RAD REPORT ---
EXAM DESCRIPTION: US - BREAST/AXILLA, COMPLETE - 05/14/2018 8:05 pm CLINICAL HISTORY: Left breast pain COMPARISON: None FINDINGS: Sonographic evaluation of the retroareolar region 4 quadrants of the left breast performed . A fluid collection is not seen. IMPRESSION: No sonographic evidence of an abscess
--- NOTE | 2018-05-14 21:20 | ER ---
Nurse's Notes [facility] Name: Britt Bower Age: 43 yrs Sex: Female : 1975 Arrival Date: 05/14/2018 Time: 18:28 Bed 23 Private MD: CHARISSE CORDOBA Diagnosis: Left Breast Pain Presentation: 05/14 18:34 Presenting complaint: Patient states: Reports possible surgical site infection to left aj breast for 2-3 days. Transition of care: patient was not received from another setting of care. Onset of symptoms was May 11, 2018. Risk Assessment: Do you want to hurt yourself or someone else? Patient reports no desire to harm self or others. Initial Sepsis Screen: Does the patient meet any 2 criteria? No. Patient's initial sepsis screen is negative. Does the patient have a suspected source of infection? No. Patient's initial sepsis screen is negative. Care prior to arrival: None. 18:34 Method Of Arrival: Ambulatory aj 18:34 Acuity: DUKE 3 aj Triage Assessment: 18:36 General: Appears in no apparent distress. comfortable, Behavior is calm, cooperative, aj appropriate for age, Smells of body dirt and odor. Pain: Complains of pain in left breast. Neuro: Level of Consciousness is awake, alert, obeys commands, Oriented to person, place, time, situation, Appropriate for age. Respiratory: Airway is patent Trachea midline Respiratory effort is even, unlabored, Respiratory pattern is regular, symmetrical. Derm: Skin is intact, is healthy with good turgor, Skin is pink, warm \T\ dry. normal. 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 for Neuropathic Pain [Active]; Humulin 70/30 100 unit/mL (70-30) Sub-Q tab 5 units twice a day for Type 2 Diabetes Mellitus [Active]; levetiracetam 500 mg Oral tab 1 tab 4 times a day for Tonic-Clonic Epilepsy Treatment Adjunct [Active]; lisinopril-hydrochlorothiazide 20-25 mg Oral tab 1 tab once daily for Hypertension [Active]; - PMHx: 18:36 Asthma; Diabetes - IDDM; epilepsy; history of stroke; Hypertension; neuropathy; aj - PSHx: 18:36 None; aj - Immunization history:: Adult Immunizations up to date. - Social history:: Smoking status: Patient/guardian denies using tobacco. - Ebola Screening: : Patient negative for fever greater than or equal to 101.5 degrees Fahrenheit, and additional compatible Ebola Virus Disease symptoms Patient denies exposure to infectious person Patient denies travel to an Ebola-affected area in the 21 days before illness onset No symptoms or risks identified at this time. Screenin:54 Abuse screen: Denies threats or abuse. Denies injuries from another. Nutritional rv screening: No deficits noted. Tuberculosis screening: No symptoms or risk factors identified. Fall Risk None identified. Assessment: 18:47 General: Appears in no apparent distress. comfortable, Behavior is calm, cooperative. rv Pain: Complains of pain in RIGHT SHOULDER, LEFT BREAST. Neuro: Level of Consciousness is awake, alert, obeys commands, Oriented to person, place, time, situation. Cardiovascular: Capillary refill < 3 seconds. Respiratory: Airway is patent. GI: No signs and/or symptoms were reported involving the gastrointestinal system. : No signs and/or symptoms were reported regarding the genitourinary system. EENT: No signs and/or symptoms were reported regarding the EENT system. Derm: Wound noted left breast. 19:58 Reassessment: Patient appears in no apparent distress at this time. Patient and/or rv family updated on plan of care and expected duration. Pain level reassessed. Patient is alert, oriented x 3, equal unlabored respirations, skin warm/dry/pink. 20:30 Reassessment: Patient appears in no apparent distress at this time. Patient and/or rv family updated on plan of care and expected duration. Pain level reassessed. Patient is alert, oriented x 3, equal unlabored respirations, skin warm/dry/pink. Vital Signs: 18:36 BP 125 / 98; Pulse 91; Resp 19; Temp 97.5; Pulse Ox 97% on R/A; Weight 97.98 kg; Height aj 5 ft. 0 in. (152.40 cm); 19:57 BP 110 / 78; Pulse 83; Pulse Ox 96% on R/A; rv 20:30 BP 140 / 96; Pulse 71; Pulse Ox 98% on R/A; rv 21:02 BP 128 / 85; Pulse 64; Pulse Ox 97% on R/A; rv 18:36 Body Mass Index 42.18 (97.98 kg, 152.40 cm) ED Course: 18:28 Patient arrived in ED. mr 18:28 CHARISSE CORDOBA is Private Physician. mr 18:35 Triage completed. aj 18:36 Arm band placed on right wrist. Patient placed in an exam room. aj 18:47 Dontae Hamilton PA is PHCP. cp 18:47 Mono Jordan MD is Attending Physician. cp 18:54 Patient has correct armband on for positive identification. Bed in low position. Call rv light in reach. Side rails up X 1. Adult w/ patient. Pulse ox on. NIBP on. 19:48 XRAY Chest Pa And Lat (2 Views) In Process Unspecified. EDMS 20:01 Ultrasound completed. Patient tolerated well. sg3 20:06 BREAST/AXILLA, COMPLETE In Process Unspecified. EDMS 20:21 Adam Peterson MD is Attending Physician. cp 21:19 Clayton Shaw MD is Referral Physician. cp 21:28 No provider procedures requiring assistance completed. Patient did not have IV access rv during this emergency room visit. Administered Medications: No medications were administered Outcome: 21:20 Discharge ordered by MD. cp 21:29 Discharged to home ambulatory. rv 21:29 Condition: good 21:29 Discharge instructions given to patient, Instructed on discharge instructions, follow up and referral plans. Demonstrated understanding of instructions, follow-up care. 21:29 Patient left the ED. rv Signatures: Dispatcher [employer] EDMS Pearl Malhotra, RN RN Ary Kumar mr Dontae Hamilton PA PA cp Kristie Fontenot sg3 Kemar Brody RN RN rv
--- NOTE | 2018-05-14 21:20 | EDPHYS ---
Physician Documentation [facility] Name: Britt Bower Age: 43 yrs Sex: Female : 1975 Arrival Date: 05/14/2018 Time: 18:28 Bed 23 Private MD: CHARISSE CORDOBA ED Physician Adam Peterson HPI: 05/14 19:25 This 43 yrs old Female presents to ER via Ambulatory with complaints of cp Surgical site infected. 19:25 The patient or guardian reports chest pain that is located primarily in the left cp breast. Onset: gradually. The pain does not radiate. Associated signs and symptoms: Pertinent negatives: cough, diaphoresis, lower extremity pain, lower extremity swelling, shortness of breath, vomiting, fever. Severity of pain: in the emergency department the pain is unchanged despite home interventions. 19:30 Patient reports having surgery by DR Shaw to remove clot from left breast 2 weeks ago cp w/o complications. Patient is currently taking antibiotic. 19:30 Patient concerned about possible infected incision of left breast. 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 for Neuropathic Pain [Active]; Humulin 70/30 100 unit/mL (70-30) Sub-Q tab 5 units twice a day for Type 2 Diabetes Mellitus [Active]; levetiracetam 500 mg Oral tab 1 tab 4 times a day for Tonic-Clonic Epilepsy Treatment Adjunct [Active]; lisinopril-hydrochlorothiazide 20-25 mg Oral tab 1 tab once daily for Hypertension [Active]; - PMHx: 18:36 Asthma; Diabetes - IDDM; epilepsy; history of stroke; Hypertension; neuropathy; aj - PSHx: 18:36 None; aj - Immunization history:: Adult Immunizations up to date. - Social history:: Smoking status: Patient/guardian denies using tobacco. - Ebola Screening: : Patient negative for fever greater than or equal to 101.5 degrees Fahrenheit, and additional compatible Ebola Virus Disease symptoms Patient denies exposure to infectious person Patient denies travel to an Ebola-affected area in the 21 days before illness onset No symptoms or risks identified at this time. ROS: 19:30 Constitutional: Negative for body aches, chills, fever, poor PO intake. cp 19:30 Eyes: Negative for injury, pain, redness, and discharge. cp 19:30 ENT: Negative for drainage from ear(s), ear pain, sore throat, difficulty swallowing, difficulty handling secretions. 19:30 Cardiovascular: Positive for chest pain, of the left breast, Negative for edema, palpitations. 19:30 Respiratory: Negative for cough, shortness of breath, wheezing. 19:30 Abdomen/GI: Negative for abdominal pain, nausea, vomiting, and diarrhea, black/tarry stool, rectal bleeding. 19:30 : Negative for urinary symptoms. 19:30 Skin: Negative for rash. 19:30 Neuro: Negative for altered mental status, dizziness, headache, weakness. 19:30 All other systems are negative. Exam: 19:35 Constitutional: The patient appears in no acute distress, alert, awake, non-toxic, well cp developed, well nourished. 19:35 Head/Face: Normocephalic, atraumatic. cp 19:35 Eyes: Periorbital structures: appear normal, Conjunctiva: normal, no exudate, no injection, Sclera: no appreciated abnormality, Lids and lashes: appear normal, bilaterally. 19:35 ENT: External ear(s): are unremarkable, Nose: is normal, Mouth: is normal, Posterior pharynx: is normal, airway is patent, no erythema, no exudate. 19:35 Neck: ROM/movement: is normal, is supple, without pain, no range of motions limitations. 19:35 Chest/axilla: Inspection: normal, Palpation: tenderness, that is mild, of the left breast, Breasts: tenderness, that is mild of the left breast, incision appears to be healing well w/o erythema and w/o drainage. no dehiscence noted. 19:35 Cardiovascular: Rate: normal, Rhythm: regular. 19:35 Respiratory: the patient does not display signs of respiratory distress, Respirations: normal, no use of accessory muscles, no retractions, no splinting, no tachypnea, labored breathing, is not present, Breath sounds: are clear throughout, no decreased breath sounds, no stridor, no wheezing. 19:35 Abdomen/GI: Inspection: abdomen appears normal, Palpation: abdomen is soft and non-tender, in all quadrants, rebound tenderness, is not appreciated, involuntary guarding, is not appreciated. 19:35 Musculoskeletal/extremity: Exam is negative for decreased range of motion, edema. 19:35 Neuro: Orientation: to person, place \T\ time. Mentation: is normal, Cerebellar function: is grossly normal, Motor: moves all fours, strength is normal, Sensation: is normal. Vital Signs: 18:36 BP 125 / 98; Pulse 91; Resp 19; Temp 97.5; Pulse Ox 97% on R/A; Weight 97.98 kg; Height aj 5 ft. 0 in. (152.40 cm); 19:57 BP 110 / 78; Pulse 83; Pulse Ox 96% on R/A; rv 20:30 BP 140 / 96; Pulse 71; Pulse Ox 98% on R/A; rv 21:02 BP 128 / 85; Pulse 64; Pulse Ox 97% on R/A; rv 18:36 Body Mass Index 42.18 (97.98 kg, 152.40 cm) aj MDM: 18:47 Patient medically screened. cp 20:00 Differential diagnosis: infected incision, abscess, cellulitis, seroma. cp 21:20 Data reviewed: vital signs, nurses notes, radiologic studies, plain films, ultrasound, cp and as a result, I will discharge patient. 21:20 Test interpretation: by ED physician or midlevel provider: plain radiologic studies. cp Counseling: I had a detailed discussion with the patient and/or guardian regarding: the historical points, exam findings, and any diagnostic results supporting the discharge/admit diagnosis, radiology results, the need for outpatient follow up, a general surgeon, to return to the emergency department if symptoms worsen or persist or if there are any questions or concerns that arise at home. 05/14 19:22 Order name: Urine Dipstick--Ancillary (enter results) ms 05/14 19:22 Order name: Urine --Ancillary (enter results) ms 05/14 19:29 Order name: XRAY Chest Pa And Lat (2 Views); Complete Time: 20:18 cp 05/14 19:43 Order name: BREAST/AXILLA, COMPLETE; Complete Time: 20:41 EDME 05/14 20:41 Interpretation: Report reviewed. cp Administered Medications: No medications were administered Disposition: 05/15 00:32 Co-signature as Attending Physician, Adam Peterson MD I agree with the assessment and kdr plan of care. Disposition: 05/14/18 21:20 Discharged to Home. Impression: Left Breast Pain. - Condition is Stable. - Discharge Instructions: Breast Tenderness. - Medication Reconciliation Form, Thank You Letter, Antibiotic Education, Prescription Opioid Use, Work release form form. - Follow up: Clayton Shaw MD; When: 2 - 3 days; Reason: Recheck today's complaints. - Problem is new. - Symptoms are unchanged. Signatures: Dispatcher [employer] [facility] Pearl Malhotra, RN RN Adam Olivo MD MD [facility] Dontae Hamilton PA PA cp Kemar Brody RN RN rv Corrections: (The following items were deleted from the chart) 05/14 19:43 19:30 Extrmty Nonvasular Limited+[id number].[id number] ordered. [facility] EDME 21:29 21:20 05/14/2018 21:20 Discharged to Home. Impression: Left Breast Pain. Condition is rv Stable. Forms are Medication Reconciliation Form, Thank You Letter, Antibiotic Education, Prescription Opioid Use. Follow up: Dr. Clayton Shaw; When: 2 - 3 days; Reason: Recheck today's complaints. Problem is new. Symptoms are unchanged. cp
[2018-05-14 21:40] VITALS: TEMP 97.5
[2018-05-14 21:43] VITALS: BP 128/85; O2SAT 97
== END 2018-05-14 21:29 | disposition home or self-care (01) ==
LOC: ER 18:24
DX: N64.4 Mastodynia (principal); I10 Essential (primary) hypertension; E11.9 Type 2 diabetes mellitus without complications; G40.909 Epilepsy, unspecified, not intractable, without status epilepticus; Z86.73 Personal history of transient ischemic attack (TIA), and cerebral infarction without residual deficits; Z79.4 Long term (current) use of insulin; Z88.0 Allergy status to penicillin; Z88.1 Allergy status to other antibiotic agents; Z88.5 Allergy status to narcotic agent; Z88.6 Allergy status to analgesic agent; Z88.8 Allergy status to other drugs, medicaments and biological substances; Z91.048 Other nonmedicinal substance allergy status
CPT/HCPCS: 71046; 76641; 81003; 81025; 99283

== ENCOUNTER 2018-07-05 22:03 | Emergency (ER) | payer SELFPAY ==
[2012-04-03 05:44] VITALS: BP 121/78
--- OUTSIDE RECORDS SUMMARY | 2018-07-05 22:07 | XMS REPORT ---
[...] Status Dosage System Date Date ProAir HFA [facility] 18585262325 108 (90 Base) Jul 26, Active 2 puffs as MCG/ACT 2018 needed Inhalation every 6 hrs Keppra ND 56035697167 500 MG Orally Aug 17, Active 2 tablets every 12 hrs 2018 HumuLIN 70/30 ND 61034341000 (70-30) 100 Jul 26, Active 10 units KwikPen UNIT/ML 2016 Subcutaneous bid Flonase ND 91567211585 50 MCG/ACT Jul 26, Active 2 spray in Nasally Once a 2017 each day nostril Bentyl ND 09843751971 20 MG Orally November 21, Active 1 tablet Four times a 2018 day Gabapentin ND 51062352392 300 MG Orally Jul 26, Active 2 capsule Three times a 2018 before day bedtime Zestoretic ND 42039655626 20-25 MG Orally Jul 26, Active 1 tablet Once a day 2016 Promethazine HCl ND 44174135552 50 MG Orally November 21, Active 1 tablet every 6 hrs 2016 as needed Tylenol # 3 NDC 0 300/30mg PO November 21, Active 1-2 tabs every 6 hrs. 2018 Results Name Result Date Reference Range Unit Abnormality Flag URINALYSIS AUTO W/O SCOPE (87119) ----NIT N 20171113 ----URO 0.2 20171113 ----PROTEIN 1+ 20171113 ----pH 5.5 20171113 ----BLO N 20171113 ----GLUCOSE N 20171113 ----ALBERTO N 20171113 ----BILIRUBIN 1+ 20171113 ----KETONES N 20171113 ----SPECIFIC GRAVITY >=1.030 20171113 Summary Purpose eClinicalWorks Submission
--- OUTSIDE RECORDS SUMMARY | 2018-07-05 22:07 | XMS REPORT ---
[...] Medications Results No Known Results Summary Purpose [employer] Submission
--- OUTSIDE RECORDS SUMMARY | 2018-07-05 22:07 | XMS REPORT ---
[...] End Status Dosage System Date Date Flonase [facility] 42754665223 50 MCG/ACT Jul 26, Active 2 spray in Nasally Once a 2017 each day nostril ProAir HFA [facility] 84970240204 108 (90 Base) Jul 26, Active 2 puffs as MCG/ACT 2018 needed Inhalation every 6 hrs Tylenol # 3 NDC 0 300/30mg PO November 21, Active 1-2 tabs every 6 hrs. 2018 Levaquin ND 78748844577 500 MG Orally Active 1 tablet Once a day Gabapentin ND 30968165016 600 MG Orally Jul 26, Active 1 capsule Three times a 2018 day Zestoretic ND 65081970289 20-25 MG Orally Jul 26, Active 1 tablet Once a day 2016 Keppra ND 85202069942 500 MG Orally Active take two Twice a day -2 tablet(s) by mouth twice a day. Tramadol HCl ND 04555787020 50 MG Orally Active 1 tablet every 6 hrs as needed Promethazine HCl ND 84377598750 50 MG Orally November 21, Active 1 tablet every 6 hrs 2016 as needed Bentyl ND 02325901418 20 MG Orally November 21, Active 1 tablet Four times a 2018 day HumuLIN 70/30 ND 04808459708 (70-30) 100 Jul 26, Active 10 units KwikPen UNIT/ML 2016 Subcutaneous bid Results No Known Results Summary Purpose eClinicalWorks Submission
--- OUTSIDE RECORDS SUMMARY | 2018-07-05 22:07 | XMS REPORT ---
[...] HumuLIN 70/30 [facility] 70222020195 (70-30) 100 Jul 26, Active 10 units KwikPen UNIT/ML 2016 Subcutaneous bid ProAir HFA [facility] 46002615995 108 (90 Base) Jul 26, Active 2 puffs as MCG/ACT 2018 needed Inhalation every 6 hrs Keppra [facility] 40302458436 500 MG Orally Active take two Twice a day -2 tablet(s) by mouth twice a day. Gabapentin ND 18943478669 600 MG Orally Jul 26, Active 1 capsule Three times a 2018 day Zestoretic ND 95738794118 20-25 MG Orally Jul 26, Active 1 tablet Once a day 2015 Bentyl ND 94149426659 20 MG Orally November 21, Active 1 tablet Four times a 2018 day Tylenol # 3 NDC 0 300/30mg PO November 21, Active 1-2 tabs every 6 hrs. 2018 Promethazine HCl ND 34431053374 50 MG Orally November 21, Active 1 tablet every 6 hrs 2016 as needed Flonase NDC 66425572449 50 MCG/ACT Jul 26, Active 2 spray in Nasally Once a 2018 each day nostril Results No Known Results Summary Purpose eClinicalWorks Submission
--- OUTSIDE RECORDS SUMMARY | 2018-07-05 22:07 | XMS REPORT ---
[...] Status Dosage System Date Date Bentyl ND 16148032589 20 MG Orally November 21, Active 1 tablet Four times a 2018 day Tylenol # 3 NDC 0 300/30mg PO November 21, Active 1-2 tabs every 6 hrs. 2018 Flonase ND 77165558157 50 MCG/ACT Jul 26, Active 2 spray in Nasally Once a 2018 each day nostril Promethazine HCl ND 32610443446 50 MG Orally November 21, Active 1 tablet every 6 hrs 2016 as needed Gabapentin ND 44663900137 600 MG Orally Jul 26, Active 1 capsule Three times a 2018 day ProAir HFA ND 68536909945 108 (90 Base) Jul 26, Active 2 puffs as MCG/ACT 2018 needed Inhalation every 6 hrs Keppra ND 52763669371 500 MG Orally Active take two Twice a day -2 tablet(s) by mouth twice a day. Zestoretic ND 47409799821 20-25 MG Orally Jul 26, Active 1 tablet Once a day 2015 HumuLIN 70/30 ND 03649066256 (70-30) 100 Jul 26, Active 10 units KwikPen UNIT/ML 2016 Subcutaneous bid Results Name Result Date Reference Range Unit Abnormality Flag URINALYSIS AUTO W/O SCOPE (25417) ----NIT N [id number] ----URO 1.0 20180219 ----PROTEIN TR 20180219 ----pH 5.5 20180219 ----BLO N 20180219 ----GLUCOSE N 20180219 ----ALBERTO N 20180219 ----BILIRUBIN N 20180219 ----KETONES N 20180219 ----SPECIFIC GRAVITY 1.025 20180219 Summary Purpose [employer]ClinicalWorks Submission
--- NOTE | 2018-07-05 23:22 | ER ---
Nurse's Notes [facility] Name: Britt Bower Age: 43 yrs Sex: Female : 1975 Arrival Date: 07/05/2018 Time: 22:07 Bed 8 Private MD: CHARISSE CORDOBA Diagnosis: Pain in right hand Presentation: 07/05 22:31 Presenting complaint: Patient states: States having pain to right middle finger, ring lp1 finger, right upper thigh, left martinez after boxes fell on her at work on Thursday; Concerned of having blood clot from previous history; bruising to right and left legs. Transition of care: patient was not received from another setting of care. Onset of symptoms was July 05, 2018. Risk Assessment: Do you want to hurt yourself or someone else? Patient reports no desire to harm self or others. Risk Assessment: Do you want to hurt yourself or someone else?. Initial Sepsis Screen: Does the patient meet any 2 criteria? No. Patient's initial sepsis screen is negative. Does the patient have a suspected source of infection? No. Patient's initial sepsis screen is negative. Care prior to arrival: None. 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 for Neuropathic Pain [Active]; Humulin 70/30 100 unit/mL (70-30) Sub-Q tab 5 units twice a day for Type 2 Diabetes Mellitus [Active]; Albuterol Inhl 2 puffs per day PRN [Active]; flonace 2 puffs/day [Active]; - PMHx: 22:35 Asthma; Diabetes - IDDM; epilepsy; history of stroke; Hypertension; neuropathy; lp1 - PSHx: 22:35 Hysterectomy; Cholecystectomy; ; lp1 - Immunization history:: Adult Immunizations up to date. - Social history:: Smoking status: Patient/guardian denies using tobacco. - Ebola Screening: : No symptoms or risks identified at this time. Screenin:36 Abuse screen: Denies threats or abuse. Denies injuries from another. Nutritional lp1 screening: No deficits noted. Tuberculosis screening: No symptoms or risk factors identified. Fall Risk None identified. Assessment: 22:41 General: Appears in no apparent distress. Behavior is calm, cooperative. Pain: bb Complains of pain in left martinez and right hand. Neuro: Level of Consciousness is awake, alert, obeys commands, Oriented to person, place, time, situation. Cardiovascular: Heart tones S1 S2 present Capillary refill < 3 seconds Patient's skin is warm and dry. Pulses are all present. Respiratory: Respiratory effort is even, unlabored, Respiratory pattern is regular, Breath sounds are clear bilaterally. GI: No signs and/or symptoms were reported involving the gastrointestinal system. Derm: Bruising that is on faint bruising to left martinez Reports pain to left martinez and right hand. Musculoskeletal: Circulation, motion, and sensation intact. Swelling present in right hand Reports pain in left martinez and right hand. 23:24 Reassessment: Patient appears in no apparent distress at this time. No changes from ak1 previously documented assessment. Patient is alert, oriented x 3, equal unlabored respirations, skin warm/dry/pink. pt ambulated to restroom with steady gait. 23:39 Reassessment: Patient and/or family updated on plan of care and expected duration. Pain bb level reassessed. Patient is alert, oriented x 3, equal unlabored respirations, skin warm/dry/pink. pt verbalized understanding of and agrees to plan of care discharge instructions given pt ambulated with steady gait to exit accompanied by spouse. Vital Signs: 22:36 BP 115 / 64; Pulse 73; Resp 18; Pulse Ox 100% on R/A; Weight 95.25 kg; Height 5 ft. 0 lp1 in. (152.40 cm); 22:36 Body Mass Index 41.01 (95.25 kg, 152.40 cm) lp1 ED Course: 22:07 Patient arrived in ED. am2 22:07 CHARISSE CORDOBA is Private Physician. am2 22:23 [facility]C [facility] kb 22:23 Mono Jordan MD is Attending Physician. kb 22:33 Triage completed. lp1 22:36 Arm band placed on left wrist. lp1 22:40 Yudith Valladares, RN is Primary Nurse. bb 22:41 Patient has correct armband on for positive identification. Call light in reach. Side bb rails up X 1. Adult w/ patient. Pulse ox on. NIBP on. 22:55 Hand Right 3 View XRAY In Process Unspecified. EDMS 23:23 No provider procedures requiring assistance completed. Patient did not have IV access ak1 during this emergency room visit. 23:41 Dressings: Band aid x 4 to left martinez, right hand, left knuckle. bb Administered Medications: No medications were administered Outcome: 23:22 Discharge ordered by . kb 23:27 Condition: stable ak1 23:41 Discharged to home ambulatory, with family. bb 23:41 Discharge instructions given to patient, Instructed on discharge instructions, follow up and referral plans. Demonstrated understanding of instructions, follow-up care. 23:42 Patient left the ED. bb Signatures: Dispatcher [employer] EDMS Ny Johnson FNP-C FNP-Yudith Mayo, RN RN bb Monica Villa, RN RN lp1 Mónica Tatum RN RN ak1 Pearl Fu am2
--- NOTE | 2018-07-05 23:22 | EDPHYS ---
Physician Documentation [facility] Emergency [facility] Name: Britt Bower Age: 43 yrs Sex: Female : 1975 Arrival Date: 07/05/2018 Time: 22:07 Bed 8 Private MD: CHARISSE CORDOBA ED Physician Mono Jordan HPI: 07/05 23:05 This 43 yrs old Female presents to ER via Ambulatory with complaints of Hand kb Pain, Leg Pain. 23:05 The patient or guardian reports a contusion, injury, pain, swelling. The complaints kb affect the right ring finger and right middle finger. Context: The problem was sustained at work, resulted from a direct blow, box. Onset: The symptoms/episode began/occurred 3 day(s) ago. Modifying factors: The symptoms are alleviated by nothing, the symptoms are aggravated by nothing. Associated signs and symptoms: The patient has no apparent associated signs or symptoms. Severity of symptoms: At their worst the symptoms were mild, in the emergency department the symptoms are unchanged. The patient has not experienced similar symptoms in the past. The patient has not recently seen a physician. 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 for Neuropathic Pain [Active]; Humulin 70/30 100 unit/mL (70-30) Sub-Q tab 5 units twice a day for Type 2 Diabetes Mellitus [Active]; Albuterol Inhl 2 puffs per day PRN [Active]; flonace 2 puffs/day [Active]; - PMHx: 22:35 Asthma; Diabetes - IDDM; epilepsy; history of stroke; Hypertension; neuropathy; lp1 - PSHx: 22:35 Hysterectomy; Cholecystectomy; ; lp1 - Immunization history:: Adult Immunizations up to date. - Social history:: Smoking status: Patient/guardian denies using tobacco. - Ebola Screening: : No symptoms or risks identified at this time. ROS: 23:02 Constitutional: Negative for fever, chills, and weight loss, Cardiovascular: Negative kb for chest pain, palpitations, and edema, Respiratory: Negative for shortness of breath, cough, wheezing, and pleuritic chest pain, Abdomen/GI: Negative for abdominal pain, nausea, vomiting, diarrhea, and constipation, Back: Negative for injury and pain, : Negative for injury, bleeding, discharge, and swelling, Skin: Negative for injury, rash, and discoloration, Neuro: Negative for headache, weakness, numbness, tingling, and seizure. 23:02 MS/extremity: Positive for contusion, pain, tenderness, of the right middle finger, right ring finger, right quadriceps and left martinez. Exam: 23:02 Constitutional: This is a well developed, well nourished patient who is awake, alert, kb and in no acute distress. Head/Face: Normocephalic, atraumatic. Chest/axilla: Normal chest wall appearance and motion. Nontender with no deformity. No lesions are appreciated. Cardiovascular: Regular rate and rhythm with a normal S1 and S2. No gallops, murmurs, or rubs. Normal PMI, no JVD. No pulse deficits. Respiratory: Lungs have equal breath sounds bilaterally, clear to auscultation and percussion. No rales, rhonchi or wheezes noted. No increased work of breathing, no retractions or nasal flaring. Abdomen/GI: Soft, non-tender, with normal bowel sounds. No distension or tympany. No guarding or rebound. No evidence of tenderness throughout. MS/ Extremity: Pulses equal, no cyanosis. Neurovascular intact. Full, normal range of motion. Neuro: Awake and alert, GCS 15, oriented to person, place, time, and situation. Cranial nerves II-XII grossly intact. Motor strength 5/5 in all extremities. Sensory grossly intact. Cerebellar exam normal. Normal gait. 23:02 Skin: injury, contusion(s), that are superficial, of the right quadriceps and left martinez and right ring finger and right middle finger. Vital Signs: 22:36 BP 115 / 64; Pulse 73; Resp 18; Pulse Ox 100% on R/A; Weight 95.25 kg; Height 5 ft. 0 lp1 in. (152.40 cm); 22:36 Body Mass Index 41.01 (95.25 kg, 152.40 cm) lp1 MDM: 22:23 Patient medically screened. kb 23:01 Data reviewed: vital signs, nurses notes. Data interpreted: Pulse oximetry: on room air kb is 100 %. Interpretation: normal. Counseling: I had a detailed discussion with the patient and/or guardian regarding: the historical points, exam findings, and any diagnostic results supporting the discharge/admit diagnosis, radiology results, the need for outpatient follow up, a family practitioner, to return to the emergency department if symptoms worsen or persist or if there are any questions or concerns that arise at home. 07/05 22:38 Order name: Hand Right 3 View XRAY kb Administered Medications: No medications were administered Disposition: 07/06 01:28 Co-signature as Attending Physician, Mono Jordan MD. rn Disposition: 07/05/18 23:22 Discharged to Home. Impression: Pain in right hand. - Condition is Stable. - Discharge Instructions: Musculoskeletal Pain, Hand Contusion, Veot-ii-Neuz. - Medication Reconciliation Form, Thank You Letter, Antibiotic Education, Prescription Opioid Use form. - Follow up: Private Physician; When: 2 - 3 days; Reason: Recheck today's complaints, Continuance of care, Re-evaluation by your physician. Follow up: Emergency Department; When: As needed; Reason: Worsening of condition. Signatures: Dispatcher [employer] EDOR Ny Johnson, DOMINIC CHIEF TECHNOLOGY OFFICER-Yudith Mayo RN RN Mono Washburn MD MD rn Pena, Laura, RN RN lp1 Corrections: (The following items were deleted from the chart) 07/05 23:42 23:22 07/05/2018 23:22 Discharged to Home. Impression: Pain in right hand. Condition is bb Stable. Forms are Medication Reconciliation Form, Thank You Letter, Antibiotic Education, Prescription Opioid Use. Follow up: Private Physician; When: 2 - 3 days; Reason: Recheck today's complaints, Continuance of care, Re-evaluation by your physician. Follow up: Emergency Department; When: As needed; Reason: Worsening of condition. kb
--- NOTE | 2018-07-06 08:43 | RAD REPORT ---
EXAM DESCRIPTION: RAD - Hand Right 3 View - 07/05/2018 10:55 pm CLINICAL HISTORY: PAIN COMPARISON: No comparisons FINDINGS: Scattered arthritic changes are present throughout the fingers of the right hand. No fract ure, dislocation or AVN.
== END 2018-07-05 23:42 | disposition home or self-care (01) ==
LOC: ER 22:03
DX: M79.641 Pain in right hand (principal); I10 Essential (primary) hypertension; E11.9 Type 2 diabetes mellitus without complications; G40.909 Epilepsy, unspecified, not intractable, without status epilepticus; J45.909 Unspecified asthma, uncomplicated; Z79.4 Long term (current) use of insulin; Z86.73 Personal history of transient ischemic attack (TIA), and cerebral infarction without residual deficits; Z88.0 Allergy status to penicillin; Z88.1 Allergy status to other antibiotic agents; Z88.5 Allergy status to narcotic agent; Z88.6 Allergy status to analgesic agent; Z88.8 Allergy status to other drugs, medicaments and biological substances; Z91.048 Other nonmedicinal substance allergy status
CPT/HCPCS: 99283

== ENCOUNTER 2018-07-15 11:27 | Emergency (ER) | payer SELFPAY ==
--- OUTSIDE RECORDS SUMMARY | 2018-07-15 11:29 | XMS REPORT ---
[...] Medications Results No Known Results Summary Purpose [employer] Submission
--- OUTSIDE RECORDS SUMMARY | 2018-07-15 11:29 | XMS REPORT ---
[...] Status Dosage System Date Date ProAir HFA [facility] [id number] 108 (90 Base) Jul 26, Active 2 puffs as MCG/ACT 2018 needed Inhalation every 6 hrs Keppra ND 66349564067 500 MG Orally Aug 17, Active 2 tablets every 12 hrs 2018 HumuLIN 70/30 ND 81457294876 (70-30) 100 Jul 26, Active 10 units KwikPen UNIT/ML 2016 Subcutaneous bid Flonase ND 49532330348 50 MCG/ACT Jul 26, Active 2 spray in Nasally Once a 2017 each day nostril Bentyl ND 32634876001 20 MG Orally November 21, Active 1 tablet Four times a 2018 day Gabapentin ND 90749062356 300 MG Orally Jul 26, Active 2 capsule Three times a 2018 before day bedtime Zestoretic ND 27802487334 20-25 MG Orally Jul 26, Active 1 tablet Once a day 2016 Promethazine HCl ND 13822482955 50 MG Orally November 21, Active 1 tablet every 6 hrs 2016 as needed Tylenol # 3 NDC 0 300/30mg PO November 21, Active 1-2 tabs every 6 hrs. 2018 Results Name Result Date Reference Range Unit Abnormality Flag URINALYSIS AUTO W/O SCOPE (10396) ----NIT N 20171113 ----URO 0.2 20171113 ----PROTEIN 1+ 20171113 ----pH 5.5 20171113 ----BLO N 20171113 ----GLUCOSE N 20171113 ----ALBERTO N 20171113 ----BILIRUBIN 1+ 20171113 ----KETONES N 20171113 ----SPECIFIC GRAVITY >=1.030 20171113 Summary Purpose [employer] Submission
--- OUTSIDE RECORDS SUMMARY | 2018-07-15 11:30 | XMS REPORT ---
[...] Status Dosage System Date Date Bentyl ND 31579419154 20 MG Orally November 21, Active 1 tablet Four times a 2018 day Tylenol # 3 NDC 0 300/30mg PO November 21, Active 1-2 tabs every 6 hrs. 2018 Flonase ND 06764045913 50 MCG/ACT Jul 26, Active 2 spray in Nasally Once a 2018 each day nostril Promethazine HCl ND 69965198261 50 MG Orally November 21, Active 1 tablet every 6 hrs 2016 as needed Gabapentin ND 66386647915 600 MG Orally Jul 26, Active 1 capsule Three times a 2018 day ProAir HFA ND 13294427114 108 (90 Base) Jul 26, Active 2 puffs as MCG/ACT 2018 needed Inhalation every 6 hrs Keppra ND 75926667870 500 MG Orally Active take two Twice a day -2 tablet(s) by mouth twice a day. Zestoretic ND 26546084815 20-25 MG Orally Jul 26, Active 1 tablet Once a day 2015 HumuLIN 70/30 ND 98989682789 (70-30) 100 Jul 26, Active 10 units KwikPen UNIT/ML 2016 Subcutaneous bid Results Name Result Date Reference Range Unit Abnormality Flag URINALYSIS AUTO W/O SCOPE (10241) ----NIT N [id number] ----URO 1.0 20180219 ----PROTEIN TR 20180219 ----pH 5.5 20180219 ----BLO N [id number] ----GLUCOSE N [id number] ----ALBERTO N [id number] ----BILIRUBIN N [id number] ----KETONES N [id number] ----SPECIFIC GRAVITY 1.025 20180219 Summary Purpose eClinicalWorks Submission
--- OUTSIDE RECORDS SUMMARY | 2018-07-15 11:30 | XMS REPORT ---
[...] Status Dosage System Date Date HumuLIN 70/30 [facility] 68780742691 (70-30) 100 Jul 26, Active 10 units KwikPen UNIT/ML 2016 Subcutaneous bid ProAir HFA [facility] 27581146511 108 (90 Base) Jul 26, Active 2 puffs as MCG/ACT 2018 needed Inhalation every 6 hrs Keppra [facility] 80451640751 500 MG Orally Active take two Twice a day -2 tablet(s) by mouth twice a day. Gabapentin ND 72654425917 600 MG Orally Jul 26, Active 1 capsule Three times a 2018 day Zestoretic ND 77157353433 20-25 MG Orally Jul 26, Active 1 tablet Once a day 2015 Bentyl ND 40379237078 20 MG Orally November 21, Active 1 tablet Four times a 2018 day Tylenol # 3 NDC 0 300/30mg PO November 21, Active 1-2 tabs every 6 hrs. 2018 Promethazine HCl ND 63781741903 50 MG Orally November 21, Active 1 tablet every 6 hrs 2016 as needed Flonase NDC 05887199572 50 MCG/ACT Jul 26, Active 2 spray in Nasally Once a 2018 each day nostril Results No Known Results Summary Purpose eClinicalWorks Submission
--- OUTSIDE RECORDS SUMMARY | 2018-07-15 11:30 | XMS REPORT ---
[...] End Status Dosage System Date Date Flonase [facility] 74963599125 50 MCG/ACT Jul 26, Active 2 spray in Nasally Once a 2017 each day nostril ProAir HFA [facility] 30079626771 108 (90 Base) Jul 26, Active 2 puffs as MCG/ACT 2018 needed Inhalation every 6 hrs Tylenol # 3 NDC 0 300/30mg PO November 21, Active 1-2 tabs every 6 hrs. 2018 Levaquin ND 36593428772 500 MG Orally Active 1 tablet Once a day Gabapentin ND 10659798870 600 MG Orally Jul 26, Active 1 capsule Three times a 2018 day Zestoretic ND 69313734433 20-25 MG Orally Jul 26, Active 1 tablet Once a day 2016 Keppra ND 68116736135 500 MG Orally Active take two Twice a day -2 tablet(s) by mouth twice a day. Tramadol HCl ND 82523722840 50 MG Orally Active 1 tablet every 6 hrs as needed Promethazine HCl ND 22581236526 50 MG Orally November 21, Active 1 tablet every 6 hrs 2016 as needed Bentyl ND 59603152720 20 MG Orally November 21, Active 1 tablet Four times a 2018 day HumuLIN 70/30 ND 59967217538 (70-30) 100 Jul 26, Active 10 units KwikPen UNIT/ML 2016 Subcutaneous bid Results No Known Results Summary Purpose eClinicalWorks Submission
[2018-07-15] MEDS ORDERED: MECLIZINE HCL 12.5 MG TAB ONE (13:23)
--- NOTE | 2018-07-15 13:43 | RAD REPORT ---
EXAM DESCRIPTION: CT - C Spine Wo Con - 07/15/2018 1:31 pm CLINICAL HISTORY: Neck pain status post neck injury. COMPARISON: None. TECHNIQUE: Computed axial tomography of the cervical spine were obtained with sagittal and coronal r econstruction images generated and reviewed. All CT scans are performed using dose optimization technique as appropriate and may include automated exposure control or mA/KV adjustment according to patient size. FINDINGS: A cervical fracture is not seen. No dislocation is noted. Significant spinal stenosis is not seen IMPRESSION: A cervical fracture is not seen. If the patient continues have symptoms to suggest spinal cord/spinal canal pathology then MRI would b e recommended.
[2018-07-15 13:46] LABS: Absolute Lymphocytes (CBC) 1.9 K/uL (0.7-4.9); Absolute Monocytes 0.6 K/uL (0.1-1.3); Absolute Neutrophil 3.9 K/uL (1.8-8.0); Basophils % 0.8 % (0-1.3); Eosinophils % 2.9 % (0-4.4); Lymphocytes % 29.1 % (15.3-44.8); Monocytes % 8.3 % (3.3-12.3)
[2018-07-15 13:47] LABS: Protime INR 0.99
[2018-07-15 14:11] LABS: Urine Appearance CLEAR; Urine Bilirubin NEGATIVE (NEG); Urine Blood NEGATIVE (NEG); Urine Color YELLOW; Urine Glucose NEGATIVE (NEG); Urine Protein NEGATIVE (NEG); Urine Urobilinogen 0.2 mg/dL (0.2-1.0); Urine pH 6.5 (5.0-7.0)
[2018-07-15 14:13] LABS: ALT/SGPT 29 U/L (12-78); AST/SGOT 18 U/L (15-37); Albumin 3.5 g/dL (3.4-5.0); Alkaline Phosphatase 82 U/L (45-117); BUN Blood Urea Nitrogen 15 mg/dL (7-18); Bicarbonate 29 mmol/L (21-32); Bilirubin Direct < 0.1 mg/dL (0-0.2); Bilirubin Total 0.1 mg/dL (0.2-1.0); Glucose Level 85 mg/dL (74-106); Lipase 112 U/L (73-393); Magnesium 2.1 mg/dL (1.8-2.4); NT PRO-BNP 48 pg/mL (<125); Potassium 3.2 mmol/L (3.5-5.1); Protein, Total 7.2 g/dL (6.4-8.2); Sodium Level 140 mmol/L (136-145); Troponin (Emerg Dept Use Only) < 0.02 ng/mL (0.0-0.045)
[2018-07-15 14:16] LABS: Urine Microscopic Reflex NO UMIC
--- NOTE | 2018-07-15 14:40 | ER ---
Nurse's Notes [facility] Name: Britt Bower Age: 43 yrs Sex: Female : 1975 Arrival Date: 07/15/2018 Time: 11:31 Bed 24 Private MD: CHARISSE CORDOBA Diagnosis: Benign paroxysmal vertigo Presentation: 07/15 11:47 Presenting complaint: Patient states: " I get dizzy and feel like I'm going to pass out ph every time I stand up." Pt reports that BGL this am was 200, self administered 10 units fast acting insulin, also reports having a "light" seizure in shower yesterday and hitting base of neck, states, " My caught me but I still hit my neck." Reports vomiting last night and loose stools, also reports fatigue and headache. Pt noted to ambulate to triage w/ no difficulty. Transition of care: patient was not received from another setting of care. Onset of symptoms was July 15, 2018. Risk Assessment: Do you want to hurt yourself or someone else? Patient reports no desire to harm self or others. 11:47 Method Of Arrival: Ambulatory ph 11:47 Acuity: [facility] 3 ph 13:07 Initial Sepsis Screen: Does the patient meet any 2 criteria? No. Patient's initial ed1 sepsis screen is negative. Does the patient have a suspected source of infection? No. Patient's initial sepsis screen is negative. Care prior to arrival: None. 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 - Social history:: Patient/guardian denies using alcohol, street drugs, The patient lives with family, Smoking status: Patient/guardian denies using tobacco. - Family history:: not pertinent. - Ebola Screening: : Patient negative for fever greater than or equal to 101.5 degrees Fahrenheit, and additional compatible Ebola Virus Disease symptoms Patient denies exposure to infectious person Patient denies travel to an Ebola-affected area in the 21 days before illness onset No symptoms or risks identified at this time. Screenin:07 Abuse screen: Denies threats or abuse. Denies injuries from another. Nutritional ed1 screening: No deficits noted. Tuberculosis screening: No symptoms or risk factors identified. Fall Risk No fall in past 12 months (0 pts). Secondary diagnosis (15 points) seizures, No IV (0 pts). Ambulatory Aid- None/Bed Rest/Nurse Assist (0 pts). Gait- Normal/Bed Rest/Wheelchair (0 pts) Mental Status- Oriented to own ability (0 pts). Total Dillon Fall Scale indicates No Risk (0-24 pts). Assessment: 13:07 General: Appears in no apparent distress. comfortable, Behavior is calm, cooperative. ed1 Pain: Complains of pain in base of the skull Pain does not radiate. Pain currently is 6 out of 10 on a pain scale. Quality of pain is described as aching, Pain began 1 day ago. Is continuous. Neuro: Level of Consciousness is awake, alert, obeys commands, Oriented to person, place, time, situation, Air Purifier Servicer are equal bilaterally Moves all extremities. Full function Gait is steady, Speech is normal, Facial symmetry appears normal, Pupils are PERRLA, Intact Reports dizziness, since this morning Denies weakness blurred vision numbness Seizure activity pt reports "small seizure" yesterday evening. Cardiovascular: Denies chest pain, Heart tones S1 S2 present Capillary refill < 3 seconds in bilateral fingers Clubbing of nail beds is absent JVD is absent. Respiratory: Airway is patent Respiratory effort is even, unlabored, Respiratory pattern is regular, symmetrical, Breath sounds are clear bilaterally. GI: Patient currently denies diarrhea, nausea, vomiting. : No signs and/or symptoms were reported regarding the genitourinary system. EENT: No signs and/or symptoms were reported regarding the EENT system. Derm: Skin is intact, is healthy with good turgor, Skin is dry, Skin is normal, Skin temperature is warm. Musculoskeletal: Circulation, motion, and sensation intact. Range of motion: intact in all extremities, Swelling absent. 13:20 Reassessment: I agree with previous assessment. 14:07 Reassessment: Patient appears in no apparent distress at this time. No changes from ed1 previously documented assessment. Patient and/or family updated on plan of care and expected duration. Pain level reassessed. Patient is alert, oriented x 3, equal unlabored respirations, skin warm/dry/pink. Patient states symptoms have not improved. Vital Signs: 11:51 BP 121 / 78; Pulse 75; Resp 18; Temp 98.4; Pulse Ox 98% on R/A; Height 5 ft. 0 in. ph (152.40 cm); 13:07 BP 108 / 71; Pulse 58; Resp 18; Temp 97.5(O); Pulse Ox 100% on R/A; Pain 6/10; ed1 14:07 BP 99 / 57; Pulse 64; Resp 17; Temp 97.5(O); Pulse Ox 100% on R/A; Pain 6/10; ed1 ED Course: 11:31 Patient arrived in ED. mr 11:31 CHARISSE CORDOBA is Private Physician. mr 11:51 Triage completed. ph 11:53 Arm band placed on. ph 12:38 Niki Chiu MD is Attending Physician. ma2 12:45 Geri Lyons LVN is Primary Nurse. ed1 13:07 Patient has correct armband on for positive identification. Placed in gown. Bed in low ed1 position. Call light in reach. Side rails up X2. portfolio director on. Pulse ox on. NIBP on. Door closed. Lights dimmed. Warm blanket given. 13:12 EKG done, by generator technician. reviewed by Niki Chiu MD. sm3 13:25 Initial lab(s) drawn, by al, sent to lab. jp3 13:30 CT completed. Patient tolerated procedure well. Patient moved to CT via wheelchair. sj Patient moved back from CT. 13:31 CT C Spine In Process Unspecified. EDMS 13:34 Creatinine for Radiology Sent. jp3 13:34 Lipase Sent. jp3 13:34 Basic Metabolic Panel Sent. jp3 13:34 CBC with Diff Sent. jp3 13:34 LFT's Sent. jp3 13:34 Magnesium Sent. jp3 13:34 NT PRO-BNP Sent. jp3 13:34 PT-INR Sent. jp3 13:34 Troponin (emerg Dept Use Only) Sent. jp3 13:38 Urine collected: clean catch specimen, clear, aubrey colored, sediment noted. jp3 13:48 UA Sent. jp3 14:57 No provider procedures requiring assistance completed. Patient did not have IV access ed1 during this emergency room visit. Administered Medications: 12:59 CANCELLED (wrong patient ): Zofran 4 mg IVP once; over 2 minutes ma2 13:00 CANCELLED (wrong patient ): Rocephin 1 grams IV at calculated rate once; Given slow IV ma2 push per pharmacy instructions 13:13 CANCELLED (Physician Discretion): NS 0.9% 1000 ml IV at 1 bolus Per protocol; 1000 mL ed1 bolus 13:16 Drug: Meclizine 25 mg Route: PO; ed1 14:59 Follow up: Response: No adverse reaction; Marked relief of symptoms ed1 Point of Care Testing: Blood Glucose: 12:53 Blood Glucose: 106 mg/dL; Test Strip: Lot #: [id number]; Expiration: 02/16/2019; ed1 12:53 Pt states "I took insulin this morning and had breakfast at [employer] around 7am. I ed1 also drank a lof of orange juice." Ranges: Outcome: 14:39 Discharge ordered by . ma2 14:57 Discharged to home ambulatory. ed1 14:57 Condition: good 14:57 Discharge instructions given to patient, Instructed on discharge instructions, follow up and referral plans. medication usage, Demonstrated understanding of instructions, follow-up care, medications, Prescriptions given X 1. 14:59 Patient left the ED. ed1 Signatures: Dispatcher [employer] EDNC Ary Shelton RosarioGeri Rey, SUPERVISOR PURIFICATION SUPERVISOR PURIFICATION ed1 Miranda Vega, MERRICK RN Giselle Mcmullen RN RN Niki Chiu MD MD ma2 Sujatha Bhandari 3 Dustin Koenig jp3
--- NOTE | 2018-07-15 14:40 | EDPHYS ---
Physician Documentation [facility] Name: Britt Bower Age: 43 yrs Sex: Female : 1975 Arrival Date: 07/15/2018 Time: 11:31 Bed 24 Private MD: CHARISSE CORDOBA ED Physician Niki Chiu HPI: 07/15 13:14 This 43 yrs old Female presents to ER via Ambulatory with complaints of ma2 Dizziness. 13:14 The patient presents with sense of spinning. Onset: The symptoms/episode began/occurred ma2 suddenly, gradually, 1 day(s) ago. Context: occurred at work. Associated signs and symptoms: Pertinent positives: Pertinent negatives: abdominal pain, ataxia, blurred vision, chest pain, combativeness, confusion, diaphoresis, head injury, headache, nausea, near-syncope, numbness, palpitations, , seizure, syncope, tingling. Severity of symptoms: At their worst the symptoms were moderate in the emergency department the symptoms are unchanged. Patient's baseline: Neuro: alert and fully oriented. The patient has experienced similar episodes in the past. 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 - Social history:: Patient/guardian denies using alcohol, street drugs, The patient lives with family, Smoking status: Patient/guardian denies using tobacco. - Family history:: not pertinent. - Ebola Screening: : Patient negative for fever greater than or equal to 101.5 degrees Fahrenheit, and additional compatible Ebola Virus Disease symptoms Patient denies exposure to infectious person Patient denies travel to an Ebola-affected area in the 21 days before illness onset No symptoms or risks identified at this time. ROS: 13:14 Constitutional: Negative for fever, chills, and weight loss, Cardiovascular: Negative ma2 for chest pain, palpitations, and edema, Respiratory: Negative for shortness of breath, cough, wheezing, and pleuritic chest pain, Abdomen/GI: Negative for abdominal pain, nausea, diarrhea, and constipation. 13:14 Neuro: Positive for dizziness, Negative for altered mental status, hearing loss, loss of consciousness, numbness, speech changes, syncope, near syncope, tinnitus, tremor, weakness, acute changes. 13:14 All other systems are negative. Exam: 13:14 Constitutional: This is a well developed, well nourished patient who is awake, alert, ma2 and in no acute distress. Eyes: Pupils equal round and reactive to light, extra-ocular motions intact. Lids and lashes normal. Conjunctiva and sclera are non-icteric and not injected. Cornea within normal limits. Periorbital areas with no swelling, redness, or edema. ENT: Nares patent. No nasal discharge, no septal abnormalities noted. Tympanic membranes are normal and external auditory canals are clear. Oropharynx with no redness, swelling, or masses, exudates, or evidence of obstruction, uvula midline. Mucous membranes moist. Chest/axilla: Normal chest wall appearance and motion. Nontender with no deformity. No lesions are appreciated. Cardiovascular: Regular rate and rhythm with a normal S1 and S2. No gallops, murmurs, or rubs. Normal PMI, no JVD. No pulse deficits. Respiratory: Lungs have equal breath sounds bilaterally, clear to auscultation and percussion. No rales, rhonchi or wheezes noted. No increased work of breathing, no retractions or nasal flaring. Abdomen/GI: Soft, non-tender, with normal bowel sounds. No distension or tympany. No guarding or rebound. No evidence of tenderness throughout. MS/ Extremity: Pulses equal, no cyanosis. Neurovascular intact. Full, normal range of motion. Neuro: Awake and alert, GCS 15, oriented to person, place, time, and situation. Cranial nerves II-XII grossly intact. Motor strength 5/5 in all extremities. Sensory grossly intact. Cerebellar exam normal. Normal gait. Vital Signs: 11:51 BP 121 / 78; Pulse 75; Resp 18; Temp 98.4; Pulse Ox 98% on R/A; Height 5 ft. 0 in. ph (152.40 cm); 13:07 BP 108 / 71; Pulse 58; Resp 18; Temp 97.5(O); Pulse Ox 100% on R/A; Pain 6/10; ed1 14:07 BP 99 / 57; Pulse 64; Resp 17; Temp 97.5(O); Pulse Ox 100% on R/A; Pain 6/10; ed1 MDM: 12:38 Patient medically screened. [facility] 13:14 Differential diagnosis: generalized weakness, idiopathic dizziness, near-syncope, ma2 vertigo. 14:38 Data reviewed: vital signs, nurses notes. Counseling: I had a detailed discussion with ma2 the patient and/or guardian regarding: the historical points, exam findings, and any diagnostic results supporting the discharge/admit diagnosis, the presence of at least one elevated blood pressure reading (>120/80) during this emergency department visit, the need for outpatient follow up. Response to treatment: the patient's symptoms have markedly improved after treatment. 07/15 12:58 Order name: Basic Metabolic Panel; Complete Time: 14:18 ma2 07/15 12:58 Order name: CBC with Diff; Complete Time: 14:04 ma2 07/15 12:58 Order name: LFT's; Complete Time: 14:18 ma2 07/15 12:58 Order name: Magnesium; Complete Time: 14:18 ma2 07/15 12:58 Order name: NT PRO-BNP; Complete Time: 14:18 ma2 07/15 12:58 Order name: PT-INR; Complete Time: 14:04 ma2 07/15 12:58 Order name: Troponin (emerg Dept Use Only); Complete Time: 14:18 ma2 07/15 12:58 Order name: Creatinine for Radiology; Complete Time: 14:18 ma2 07/15 12:58 Order name: Lipase; Complete Time: 14:18 ma2 07/15 12:58 Order name: UA; Complete Time: 14:18 ma2 07/15 13:09 Order name: CT C Spine; Complete Time: 14:04 ma2 07/15 12:58 Order name: EKG; Complete Time: 12:59 ma2 07/15 12:58 Order name: Cardiac monitoring; Complete Time: 13:13 ma2 07/15 12:58 Order name: EKG - Nurse/Tech; Complete Time: 13:13 ma2 07/15 12:58 Order name: Labs collected and sent; Complete Time: 13:27 ma2 07/15 12:58 Order name: O2 Per Protocol; Complete Time: 13:12 ma2 07/15 12:58 Order name: O2 Sat Monitoring; Complete Time: 13:12 ma2 07/15 12:58 Order name: Urine Dipstick-Ancillary (obtain specimen); Complete Time: 13:48 ma2 Administered Medications: 12:59 CANCELLED (wrong patient ): Zofran 4 mg IVP once; over 2 minutes ma2 13:00 CANCELLED (wrong patient ): Rocephin 1 grams IV at calculated rate once; Given slow IV ma2 push per pharmacy instructions 13:13 CANCELLED (Physician Discretion): NS 0.9% 1000 ml IV at 1 bolus Per protocol; 1000 mL ed1 bolus 13:16 Drug: Meclizine 25 mg Route: PO; ed1 14:59 Follow up: Response: No adverse reaction; Marked relief of symptoms ed1 Point of Care Testing: Blood Glucose: 12:53 Blood Glucose: 106 mg/dL; Test Strip: Lot #: [id number]; Expiration: 02/16/2019; ed1 12:53 Pt states "I took insulin this morning and had breakfast at [employer] around 7am. I ed1 also drank a lof of orange juice." Ranges: Critical Glucose Levels:Adult <50 mg/dl or >400 mg/dl <40 mg/dl or >180 mg/dl Disposition: 07/15/18 14:39 Discharged to Home. Impression: Benign paroxysmal vertigo. - Condition is Stable. - Discharge Instructions: Benign Positional Vertigo. - Prescriptions for Meclizine 25 mg Oral Tablet - take 1 tablet by ORAL route every 8 hours As needed; 30 tablet. - Work release form, Medication Reconciliation Form, Thank You Letter, Antibiotic Education, Prescription Opioid Use form. - Follow up: Private Physician; When: Tomorrow; Reason: Continuance of care. Signatures: Dispatcher [employer] EDMS Geri Lyons LVN SR. MEDIA MANAGER ed1 Miranda Vega RN RN Niki Cervantes MD MD ma2 Corrections: (The following items were deleted from the chart) 12:59 12:58 Zofran 4 mg IVP once; over 2 minutes ordered. ma2 ma2 13:00 12:58 cefTRIAXone [Rocephin 1 grams IV at calculated rate once; Given slow IV push per [facility] pharmacy instructions] ordered. mt2 13:12 12:58 IV Saline Lock ordered. [facility] ed1 13:13 12:58 NS 0.9% 1000 ml IV at 1 bolus Per protocol; 1000 mL bolus ordered. [facility] ed1 13:29 12:59 Chest Single View+RAD.RAD.BRZ ordered. EDTX EDMS 14:59 14:39 07/15/2018 14:39 Discharged to Home. Impression: Benign paroxysmal vertigo. ed1 Condition is Stable. Forms are Medication Reconciliation Form, Thank You Letter, Antibiotic Education, Prescription Opioid Use. Follow up: Private Physician; When: Tomorrow; Reason: Continuance of care. [facility]
[2018-07-15 15:14] VITALS: TEMP 97.5; O2SAT 100
[2018-07-15 15:15] VITALS: BP 99/57
--- NOTE | 2018-07-15 15:33 | EKG ---
Test Date: 2018-07-15 Test Time: 13:06:36 Contact Center Engineer: PUJA MEASUREMENT RESULTS: Intervals: Rate: 59 MI: 148 QRSD: 88 QT: 462 QTc: 457 [place]: P: 61 MI: 148 QRS: 53 T: 14 INTERPRETIVE STATEMENTS: Sinus bradycardia Otherwise normal ECG Compared to ECG 04/19/2018 18:50:42 Sinus rhythm no longer present Electronically Signed On 07-15-18 15:32:55 SMOKE JUMPER SUPERVISOR by Bernabe Graahm
== END 2018-07-15 14:59 | disposition home or self-care (01) ==
LOC: ER 11:27
DX: H81.10 Benign paroxysmal vertigo, unspecified ear (principal); E11.9 Type 2 diabetes mellitus without complications; E11.40 Type 2 diabetes mellitus with diabetic neuropathy, unspecified; G40.909 Epilepsy, unspecified, not intractable, without status epilepticus; I10 Essential (primary) hypertension; Z79.4 Long term (current) use of insulin; Z86.73 Personal history of transient ischemic attack (TIA), and cerebral infarction without residual deficits
CPT/HCPCS: 36415; 72125; 80048; 80076; 81003; 82962; 83690; 83735; 83880; 84484; 85025; 85610; 93005; 99285

== ENCOUNTER 2018-07-29 23:33 | Emergency (ER) | payer SELFPAY ==
--- OUTSIDE RECORDS SUMMARY | 2018-07-29 23:35 | XMS REPORT ---
[...] Dosage System Date Date ProAir HFA [facility] 21888346422 108 (90 Base) Jul 26, Active 2 puffs as MCG/ACT 2018 needed Inhalation every 6 hrs Keppra ND 70621912308 500 MG Orally Aug 17, Active 2 tablets every 12 hrs 2018 HumuLIN 70/30 ND 50731036185 (70-30) 100 Jul 26, Active 10 units KwikPen UNIT/ML 2016 Subcutaneous bid Flonase ND 43700835169 50 MCG/ACT Jul 26, Active 2 spray in Nasally Once a 2017 each day nostril Bentyl ND 70898397743 20 MG Orally November 21, Active 1 tablet Four times a 2018 day Gabapentin ND 00269668889 300 MG Orally Jul 26, Active 2 capsule Three times a 2018 before day bedtime Zestoretic ND 68846359805 20-25 MG Orally Jul 26, Active 1 tablet Once a day 2016 Promethazine HCl ND 65151647287 50 MG Orally November 21, Active 1 tablet every 6 hrs 2016 as needed Tylenol # 3 NDC 0 300/30mg PO November 21, Active 1-2 tabs every 6 hrs. 2018 Results Name Result Date Reference Range Unit Abnormality Flag URINALYSIS AUTO W/O SCOPE (00444) ----NIT N [id number] ----URO 0.2 20171113 ----PROTEIN 1+ 20171113 ----pH 5.5 20171113 ----BLO N 20171113 ----GLUCOSE N 20171113 ----ALBERTO N 20171113 ----BILIRUBIN 1+ 20171113 ----KETONES N 20171113 ----SPECIFIC GRAVITY >=1.030 20171113 Summary Purpose eClinicalWorks Submission
--- OUTSIDE RECORDS SUMMARY | 2018-07-29 23:35 | XMS REPORT ---
[...] Status Dosage System Date Date Bentyl ND 40738505824 20 MG Orally November 21, Active 1 tablet Four times a 2018 day Tylenol # 3 NDC 0 300/30mg PO November 21, Active 1-2 tabs every 6 hrs. 2018 Flonase ND 88653976657 50 MCG/ACT Jul 26, Active 2 spray in Nasally Once a 2018 each day nostril Promethazine HCl ND 97152901195 50 MG Orally November 21, Active 1 tablet every 6 hrs 2016 as needed Gabapentin ND 59026302789 600 MG Orally Jul 26, Active 1 capsule Three times a 2018 day ProAir HFA ND 57804967594 108 (90 Base) Jul 26, Active 2 puffs as MCG/ACT 2018 needed Inhalation every 6 hrs Keppra ND 52533175255 500 MG Orally Active take two Twice a day -2 tablet(s) by mouth twice a day. Zestoretic ND 91724216753 20-25 MG Orally Jul 26, Active 1 tablet Once a day 2015 HumuLIN 70/30 ND 66875839897 (70-30) 100 Jul 26, Active 10 units KwikPen UNIT/ML 2016 Subcutaneous bid Results Name Result Date Reference Range Unit Abnormality Flag URINALYSIS AUTO W/O SCOPE (95998) ----NIT N [id number] ----URO 1.0 20180219 ----PROTEIN TR [id number] ----pH 5.5 20180219 ----BLO N [id number] ----GLUCOSE N [id number] ----ALBERTO N [id number] ----BILIRUBIN N [id number] ----KETONES N [id number] ----SPECIFIC GRAVITY 1.025 [id number] Summary Purpose eClinicalWorks Submission
--- OUTSIDE RECORDS SUMMARY | 2018-07-29 23:35 | XMS REPORT ---
[...] Medications Results No Known Results Summary Purpose [employer] AppinicalWiseStamp Submission
--- OUTSIDE RECORDS SUMMARY | 2018-07-29 23:36 | XMS REPORT ---
[...] End Status Dosage System Date Date Flonase [facility] 68156606599 50 MCG/ACT Jul 26, Active 2 spray in Nasally Once a 2017 each day nostril ProAir HFA [facility] 38244110358 108 (90 Base) Jul 26, Active 2 puffs as MCG/ACT 2018 needed Inhalation every 6 hrs Tylenol # 3 NDC 0 300/30mg PO November 21, Active 1-2 tabs every 6 hrs. 2018 Levaquin ND 45989538589 500 MG Orally Active 1 tablet Once a day Gabapentin ND 21666420953 600 MG Orally Jul 26, Active 1 capsule Three times a 2018 day Zestoretic ND 16281446976 20-25 MG Orally Jul 26, Active 1 tablet Once a day 2016 Keppra ND 17765225791 500 MG Orally Active take two Twice a day -2 tablet(s) by mouth twice a day. Tramadol HCl ND 34124840531 50 MG Orally Active 1 tablet every 6 hrs as needed Promethazine HCl ND 76684965087 50 MG Orally November 21, Active 1 tablet every 6 hrs 2016 as needed Bentyl ND 82061854000 20 MG Orally November 21, Active 1 tablet Four times a 2018 day HumuLIN 70/30 ND 93708890134 (70-30) 100 Jul 26, Active 10 units KwikPen UNIT/ML 2016 Subcutaneous bid Results No Known Results Summary Purpose eClinicalWorks Submission
--- OUTSIDE RECORDS SUMMARY | 2018-07-29 23:36 | XMS REPORT ---
[...] Status Dosage System Date Date HumuLIN 70/30 [facility] 93329169603 (70-30) 100 Jul 26, Active 10 units KwikPen UNIT/ML 2016 Subcutaneous bid ProAir HFA [facility] 41169300455 108 (90 Base) Jul 26, Active 2 puffs as MCG/ACT 2018 needed Inhalation every 6 hrs Keppra [facility] 05257946829 500 MG Orally Active take two Twice a day -2 tablet(s) by mouth twice a day. Gabapentin ND 62778951158 600 MG Orally Jul 26, Active 1 capsule Three times a 2018 day Zestoretic ND 83399901275 20-25 MG Orally Jul 26, Active 1 tablet Once a day 2015 Bentyl ND 07907360874 20 MG Orally November 21, Active 1 tablet Four times a 2018 day Tylenol # 3 NDC 0 300/30mg PO November 21, Active 1-2 tabs every 6 hrs. 2018 Promethazine HCl ND 68526761355 50 MG Orally November 21, Active 1 tablet every 6 hrs 2016 as needed Flonase NDC 95038233688 50 MCG/ACT Jul 26, Active 2 spray in Nasally Once a 2018 each day nostril Results No Known Results Summary Purpose eClinicalWorks Submission
[2018-07-30] MEDS ORDERED: NA CHLORIDE 0.9% 100 ML IV ONE (01:27)
[2018-07-30] MEDS ORDERED: KETOROLAC 30 MG/ML INJ ONE (01:27)
[2018-07-30] MEDS ORDERED: METOCLOPRAMIDE 10 MG/2mL INJ ONE (01:27)
[2018-07-30] MEDS ORDERED: DIPHENHYDRAMINE 50 MG/ML VIAL ONE (01:27)
--- NOTE | 2018-07-30 01:53 | ER ---
Nurse's Notes [facility] Name: Britt Bower Age: 43 yrs Sex: Female : 1975 Arrival Date: 07/29/2018 Time: 23:39 Bed 28 Private MD: Lubna Hunt Diagnosis: Migraine Presentation: 07/29 23:55 Presenting complaint: Patient states: migraine headache since 2pm, tylenol and motrin tl3 are not helping, feels like she has a crick in her neck. Has hx of migraines. has nausea, congestion and itchy ears. Transition of care: patient was not received from another setting of care. Onset of symptoms was July 29, 2018. Risk Assessment: Do you want to hurt yourself or someone else? Patient reports no desire to harm self or others. Initial Sepsis Screen: Does the patient meet any 2 criteria? No. Patient's initial sepsis screen is negative. Does the patient have a suspected source of infection? No. Patient's initial sepsis screen is negative. Care prior to arrival: None. 23:55 Method Of Arrival: Ambulatory tl3 23:55 Acuity: DUKE 3 tl3 23:55 Acuity: [facility] 4 tl3 Triage Assessment: 07/30 00:01 Headache History: The patient has had previous headaches and this one is similar to tl3 previous episodes. General: Appears in no apparent distress. well developed, well nourished, Behavior is calm, cooperative, appropriate for age. Pain: Complains of pain in forehead, left base of the skull and right base of the skull Pain currently is 8 out of 10 on a pain scale. Pain: Pain began 1 day ago. Also complains of nausea. Neuro: Level of Consciousness is awake, alert, obeys commands, Oriented to person, place, time, situation, Appropriate for age. 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 LMP N/A - Hysterectomy tl3 Historical: - Allergies: 00:01 Aspirin; tl3 00:01 Amoxicillin; tl3 00:01 Iodine; tl3 00:01 Morphine; tl3 00:01 PENICILLINS; tl3 00:01 Zofran; tl3 00:01 Piperacillin Sodium; tl3 00:01 diazepam; tl3 00:01 Ondansetron HCl; tl3 00:01 tazobactam sodium; tl3 00:01 coconut; tl3 - Home Meds: 00:01 Humulin 70/30 100 unit/mL (70-30) Sub-Q tab 5 units twice a day for Type 2 Diabetes tl3 Mellitus [Active]; lisinopril-hydrochlorothiazide 20-25 mg Oral tab 1 tab once daily for Hypertension [Active]; levetiracetam 500 mg Oral tab 1 tab 4 times a day for Tonic-Clonic Epilepsy Treatment Adjunct [Active]; gabapentin 600 mg oral tab 1 tab 3 times per day [Active]; flonace 2 puffs/day daily [Active]; albuterol sulfate 90 mcg/actuation inhalation HFAA [Active]; - PMHx: 00:01 Asthma; Diabetes - IDDM; epilepsy; history of stroke; Hypertension; neuropathy; tl3 - PSHx: 00:01 Hysterectomy; Cholecystectomy; ; tl3 - Immunization history:: Adult Immunizations up to date. - Social history:: Smoking status: Patient/guardian denies using tobacco, never smoked. - Ebola Screening: : No symptoms or risks identified at this time. Screenin:16 Abuse screen: Denies threats or abuse. Denies injuries from another. Nutritional mg2 screening: No deficits noted. Tuberculosis screening: No symptoms or risk factors identified. Fall Risk None identified. Assessment: 00:30 General: Appears in no apparent distress. comfortable, Behavior is calm, cooperative. mg2 Pain: Complains of pain in frontal and parietal headache Pain does not radiate. Pain currently is 8 out of 10 on a pain scale. Quality of pain is described as aching, Pain began gradually, since 2 pm yesterday Is intermittent. Neuro: Level of Consciousness is awake, alert, obeys commands, Oriented to person, place, time, situation. Cardiovascular: Capillary refill < 3 seconds Patient's skin is warm and dry. Respiratory: Airway is patent Respiratory effort is even, unlabored, Respiratory pattern is regular, symmetrical. GI: No signs and/or symptoms were reported involving the gastrointestinal system. GI: No signs and/or symptoms were reported involving the gastrointestinal system. Reports nausea. : No signs and/or symptoms were reported regarding the genitourinary system. EENT: No signs and/or symptoms were reported regarding the EENT system. Derm: Skin is intact, is healthy with good turgor, Skin is pink, warm \T\ dry. normal. Musculoskeletal: No signs and/or symptoms reported regarding the musculoskeletal system. 02:37 Reassessment: patient improved. mg2 Vital Signs: 00:01 BP 139 / 99; Pulse 65; Resp 18; Temp 97.8; Pulse Ox 98% ; Weight 97.66 kg; Height 5 ft. tl3 (152.40 cm); 02:36 BP 125 / 78; Pulse 70; Resp 18; Pulse Ox 100% on R/A; Pain 0/10; mg2 00:01 Body Mass Index 42.05 (97.66 kg, 152.40 cm) tl3 ED Course: 07/29 23:39 Patient arrived in ED. am2 23:39 Lubna Hunt FNP-C is Private Physician. am2 23:57 Triage completed. tl3 01 00:01 Arm band placed on right wrist. tl3 00:07 Ralph White NP is PHCP. pm1 00:07 Drew Chang MD is Attending Physician. pm1 00:16 Rafi Cooney RN is Primary Nurse. mg2 00:31 No provider procedures requiring assistance completed. mg2 00:32 Patient has correct armband on for positive identification. Door closed. Warm blanket mg2 given. 01:25 Inserted saline lock: 24 gauge in left wrist, using aseptic technique. mg2 02:37 IV discontinued, intact, bleeding controlled, No redness/swelling at site. mg2 Administered Medications: 01:22 CANCELLED (Physician Discretion): SOLU-Medrol 125 mg IVP once pm1 01:24 Drug: Reglan 10 mg Route: IVP; Site: left wrist; mg2 02:36 Follow up: Response: No adverse reaction; Marked relief of symptoms mg2 01:25 Drug: Benadryl 25 mg Route: IVP; Site: left wrist; mg2 02:36 Follow up: Response: No adverse reaction; Marked relief of symptoms mg2 01:56 Drug: Gove 5 mg-325 mg 1 tabs Route: PO; mg2 02:36 Follow up: Response: No adverse reaction; Marked relief of symptoms mg2 Outcome: 01:52 Discharge ordered by . pm1 02:37 Discharged to home ambulatory. mg2 02:37 Condition: stable 02:37 Discharge instructions given to patient, Instructed on discharge instructions, follow up and referral plans. Demonstrated understanding of instructions, follow-up care. 02:38 Patient left the ED. mg2 Signatures: Ralph White, MANAGER ANALYTICAL MANAGER ANALYTICAL pm1 Pearl Fu am2 Rain Sandoval, RN RN tl3 Rafi Cooney, RN RN mg2
--- NOTE | 2018-07-30 01:54 | EDPHYS ---
Physician Documentation [facility] Name: Britt Bower Age: 43 yrs Sex: Female : 1975 Arrival Date: 07/29/2018 Time: 23:39 Bed 28 Private MD: Lubna Hunt ED Physician Drew Chang HPI: 07/30 01:16 This 43 yrs old Female presents to ER via Ambulatory with complaints of pm1 Migraine Headache. 01:16 The patient complains of pain to the behind both eyes and base of skull. The patient pm1 describes the headache as aching, constant. Onset: The symptoms/episode began/occurred 12 hour(s) ago. Associated signs and symptoms: Pertinent negatives: dizziness, fever, nausea, Photophobia rash, vomiting. Severity of symptoms: in the emergency department the pain is actually worse. Headache History: Other similar to prior migraine headaches. The symptoms are alleviated by nothing. the symptoms are aggravated by nothing. The patient has experienced similar episodes in the past, multiple times. The patient has not recently seen a physician. 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 LMP N/A - Hysterectomy tl3 Historical: - Allergies: 00:01 Aspirin; tl3 00:01 Amoxicillin; tl3 00:01 Iodine; tl3 00:01 Morphine; tl3 00:01 PENICILLINS; tl3 00:01 Zofran; tl3 00:01 Piperacillin Sodium; tl3 00:01 diazepam; tl3 00:01 Ondansetron HCl; tl3 00:01 tazobactam sodium; tl3 00:01 coconut; tl3 - Home Meds: 00:01 Humulin 70/30 100 unit/mL (70-30) Sub-Q tab 5 units twice a day for Type 2 Diabetes tl3 Mellitus [Active]; lisinopril-hydrochlorothiazide 20-25 mg Oral tab 1 tab once daily for Hypertension [Active]; levetiracetam 500 mg Oral tab 1 tab 4 times a day for Tonic-Clonic Epilepsy Treatment Adjunct [Active]; gabapentin 600 mg oral tab 1 tab 3 times per day [Active]; flonace 2 puffs/day daily [Active]; albuterol sulfate 90 mcg/actuation inhalation HFAA [Active]; - PMHx: 00:01 Asthma; Diabetes - IDDM; epilepsy; history of stroke; Hypertension; neuropathy; tl3 - PSHx: 00:01 Hysterectomy; Cholecystectomy; ; tl3 - Immunization history:: Adult Immunizations up to date. - Social history:: Smoking status: Patient/guardian denies using tobacco, never smoked. - Ebola Screening: : No symptoms or risks identified at this time. ROS: 01:20 Constitutional: Negative for fever, chills, and weight loss, Eyes: Negative for injury, pm1 pain, redness, and discharge, ENT: Negative for injury, pain, and discharge, Neck: Negative for injury, pain, and swelling, Cardiovascular: Negative for chest pain, palpitations, and edema, Respiratory: Negative for shortness of breath, cough, wheezing, and pleuritic chest pain, Abdomen/GI: Negative for abdominal pain, nausea, vomiting, diarrhea, and constipation, Back: Negative for injury and pain, : Negative for injury, bleeding, discharge, and swelling, MS/Extremity: Negative for injury and deformity, Skin: Negative for injury, rash, and discoloration. 01:20 Neuro: Positive for headache, Negative for seizure activity, syncope, near syncope, weakness. Exam: 01:20 Constitutional: This is a well developed, well nourished patient who is awake, alert, pm1 and in no acute distress. Head/Face: Normocephalic, atraumatic. Eyes: Pupils equal round and reactive to light, extra-ocular motions intact. Lids and lashes normal. Conjunctiva and sclera are non-icteric and not injected. Cornea within normal limits. Periorbital areas with no swelling, redness, or edema. ENT: Nares patent. No nasal discharge, no septal abnormalities noted. Tympanic membranes are normal and external auditory canals are clear. Oropharynx with no redness, swelling, or masses, exudates, or evidence of obstruction, uvula midline. Mucous membranes moist. Neck: Trachea midline, no thyromegaly or masses palpated, and no cervical lymphadenopathy. Supple, full range of motion without nuchal rigidity, or vertebral point tenderness. No Meningismus. Chest/axilla: Normal chest wall appearance and motion. Nontender with no deformity. No lesions are appreciated. Cardiovascular: Regular rate and rhythm with a normal S1 and S2. No gallops, murmurs, or rubs. Normal PMI, no JVD. No pulse deficits. Respiratory: Lungs have equal breath sounds bilaterally, clear to auscultation and percussion. No rales, rhonchi or wheezes noted. No increased work of breathing, no retractions or nasal flaring. Abdomen/GI: Soft, non-tender, with normal bowel sounds. No distension or tympany. No guarding or rebound. No evidence of tenderness throughout. Back: No spinal tenderness. No costovertebral tenderness. Full range of motion. Skin: Warm, dry with normal turgor. Normal color with no rashes, no lesions, and no evidence of cellulitis. MS/ Extremity: Pulses equal, no cyanosis. Neurovascular intact. Full, normal range of motion. 01:20 Neuro: Orientation: is normal, Cranial nerves: CN II- XII are normal as tested, Cerebellar function: normal finger to nose testing, Motor: moves all fours, Sensation: is normal, no obvious gross deficits, Gait: is steady, at a normal pace, without difficulty. Vital Signs: 00:01 BP 139 / 99; Pulse 65; Resp 18; Temp 97.8; Pulse Ox 98% ; Weight 97.66 kg; Height 5 ft. tl3 (152.40 cm); 02:36 BP 125 / 78; Pulse 70; Resp 18; Pulse Ox 100% on R/A; Pain 0/10; mg2 00:01 Body Mass Index 42.05 (97.66 kg, 152.40 cm) tl3 MDM: 00:48 Patient medically screened. pm1 01:51 Data reviewed: vital signs. Data interpreted: Pulse oximetry: on room air is 98 %. pm1 Interpretation: normal. Counseling: I had a detailed discussion with the patient and/or guardian regarding: the historical points, exam findings, and any diagnostic results supporting the discharge/admit diagnosis, the need for outpatient follow up, to return to the emergency department if symptoms worsen or persist or if there are any questions or concerns that arise at home. 07/30 01:21 Order name: IV Saline Lock; Complete Time: 01:24 pm1 Administered Medications: 01:22 CANCELLED (Physician Discretion): SOLU-Medrol 125 mg IVP once pm1 01:24 Drug: Reglan 10 mg Route: IVP; Site: left wrist; mg2 02:36 Follow up: Response: No adverse reaction; Marked relief of symptoms mg2 01:25 Drug: Benadryl 25 mg Route: IVP; Site: left wrist; mg2 02:36 Follow up: Response: No adverse reaction; Marked relief of symptoms mg2 01:56 Drug: [place]borside 5 mg-325 mg 1 tabs Route: PO; mg2 02:36 Follow up: Response: No adverse reaction; Marked relief of symptoms mg2 Disposition: 07/30/18 01:52 Discharged to Home. Impression: Migraine. - Condition is Stable. - Discharge Instructions: Migraine Headache. - Medication Reconciliation Form, Thank You Letter form. - Follow up: Emergency Department; When: As needed; Reason: Worsening of condition. Follow up: Private Physician; When: 2 - 3 days; Reason: Recheck today's complaints, Continuance of care, Re-evaluation by your physician. - Problem is new. - Symptoms have improved. Addendum: 07/31/2018 07:09 Co-signature as Attending Physician, Drew Chang MD I agree with the assessment and w a plan of care. Signatures: Ralph White, OTR [employer] TRUCK DRIVER OTR [employer] TRUCK DRIVER pm1 Drew Chang MD MD nv Rain Sandoval, RN RN tl3 Rafi Cooney RN RN mg2 Corrections: (The following items were deleted from the chart) 07/30 01:22 01:21 SOLU-Medrol 125 mg IVP once ordered. pm1 pm1 02:38 01:52 07/30/2018 01:52 Discharged to Home. Impression: Migraine. Condition is Stable. mg2 Forms are Medication Reconciliation Form, Thank You Letter, Antibiotic Education, Prescription Opioid Use. Follow up: Emergency Department; When: As needed; Reason: Worsening of condition. Follow up: Private Physician; When: 2 - 3 days; Reason: Recheck today's complaints, Continuance of care, Re-evaluation by your physician. Problem is new. Symptoms have improved. pm1
[2018-07-30] MEDS ORDERED: HYDROCODONE/APAP 5/325 MG TAB ONE (02:06)
[2018-07-30 03:07] VITALS: TEMP 97.8
[2018-07-30 03:08] VITALS: BP 125/78; O2SAT 100
== END 2018-07-30 02:38 | disposition home or self-care (01) ==
LOC: ER 23:33
DX: G43.909 Migraine, unspecified, not intractable, without status migrainosus (principal); E11.40 Type 2 diabetes mellitus with diabetic neuropathy, unspecified; I10 Essential (primary) hypertension; G40.909 Epilepsy, unspecified, not intractable, without status epilepticus; J45.909 Unspecified asthma, uncomplicated; Z79.4 Long term (current) use of insulin; Z79.899 Other long term (current) drug therapy; Z86.73 Personal history of transient ischemic attack (TIA), and cerebral infarction without residual deficits
CPT/HCPCS: 96374; 96375; 99283; J2765

== ENCOUNTER 2018-08-03 15:42 | Emergency (ER) | payer SELFPAY ==
--- OUTSIDE RECORDS SUMMARY | 2018-08-03 15:44 | XMS REPORT ---
[...] Dosage System Date Date ProAir HFA [facility] 53522846509 108 (90 Base) Jul 26, Active 2 puffs as MCG/ACT 2018 needed Inhalation every 6 hrs Keppra ND 29204291078 500 MG Orally Aug 17, Active 2 tablets every 12 hrs 2018 HumuLIN 70/30 ND 60596555529 (70-30) 100 Jul 26, Active 10 units KwikPen UNIT/ML 2016 Subcutaneous bid Flonase ND 88333235001 50 MCG/ACT Jul 26, Active 2 spray in Nasally Once a 2017 each day nostril Bentyl ND 22325257776 20 MG Orally November 21, Active 1 tablet Four times a 2018 day Gabapentin ND 40826498496 300 MG Orally Jul 26, Active 2 capsule Three times a 2018 before day bedtime Zestoretic ND 15954986337 20-25 MG Orally Jul 26, Active 1 tablet Once a day 2016 Promethazine HCl ND 66639131048 50 MG Orally November 21, Active 1 tablet every 6 hrs 2016 as needed Tylenol # 3 NDC 0 300/30mg PO November 21, Active 1-2 tabs every 6 hrs. 2018 Results Name Result Date Reference Range Unit Abnormality Flag URINALYSIS AUTO W/O SCOPE (32961) ----NIT N [id number] ----URO 0.2 20171113 ----PROTEIN 1+ 20171113 ----pH 5.5 20171113 ----BLO N 20171113 ----GLUCOSE N 20171113 ----ALBERTO N 20171113 ----BILIRUBIN 1+ 20171113 ----KETONES N 20171113 ----SPECIFIC GRAVITY >=1.030 20171113 Summary Purpose eClinicalWorks Submission
--- OUTSIDE RECORDS SUMMARY | 2018-08-03 15:44 | XMS REPORT ---
[...] Status Dosage System Date Date Bentyl ND 59008997097 20 MG Orally November 21, Active 1 tablet Four times a 2018 day Tylenol # 3 NDC 0 300/30mg PO November 21, Active 1-2 tabs every 6 hrs. 2018 Flonase ND 85629399874 50 MCG/ACT Jul 26, Active 2 spray in Nasally Once a 2018 each day nostril Promethazine HCl ND 56558693063 50 MG Orally November 21, Active 1 tablet every 6 hrs 2016 as needed Gabapentin ND 11559323049 600 MG Orally Jul 26, Active 1 capsule Three times a 2018 day ProAir HFA ND 25671985209 108 (90 Base) Jul 26, Active 2 puffs as MCG/ACT 2018 needed Inhalation every 6 hrs Keppra ND 50431705227 500 MG Orally Active take two Twice a day -2 tablet(s) by mouth twice a day. Zestoretic ND 79687747248 20-25 MG Orally Jul 26, Active 1 tablet Once a day 2015 HumuLIN 70/30 ND 25806327877 (70-30) 100 Jul 26, Active 10 units KwikPen UNIT/ML 2016 Subcutaneous bid Results Name Result Date Reference Range Unit Abnormality Flag URINALYSIS AUTO W/O SCOPE (81872) ----NIT N [id number] ----URO 1.0 20180219 ----PROTEIN TR [id number] ----pH 5.5 20180219 ----BLO N [id number] ----GLUCOSE N [id number] ----ALBERTO N [id number] ----BILIRUBIN N [id number] ----KETONES N [id number] ----SPECIFIC GRAVITY 1.025 [id number] Summary Purpose eClinicalWorks Submission
--- OUTSIDE RECORDS SUMMARY | 2018-08-03 15:44 | XMS REPORT ---
[...] Status Dosage System Date Date HumuLIN 70/30 [facility] 49244380830 (70-30) 100 Jul 26, Active 10 units KwikPen UNIT/ML 2016 Subcutaneous bid ProAir HFA [facility] 52316187214 108 (90 Base) Jul 26, Active 2 puffs as MCG/ACT 2018 needed Inhalation every 6 hrs Keppra [facility] 05412460649 500 MG Orally Active take two Twice a day -2 tablet(s) by mouth twice a day. Gabapentin ND 46423100542 600 MG Orally Jul 26, Active 1 capsule Three times a 2018 day Zestoretic ND 30827668701 20-25 MG Orally Jul 26, Active 1 tablet Once a day 2015 Bentyl ND 23672012179 20 MG Orally November 21, Active 1 tablet Four times a 2018 day Tylenol # 3 NDC 0 300/30mg PO November 21, Active 1-2 tabs every 6 hrs. 2018 Promethazine HCl ND 75776527838 50 MG Orally November 21, Active 1 tablet every 6 hrs 2016 as needed Flonase NDC 58686011054 50 MCG/ACT Jul 26, Active 2 spray in Nasally Once a 2018 each day nostril Results No Known Results Summary Purpose eClinicalWorks Submission
--- OUTSIDE RECORDS SUMMARY | 2018-08-03 15:44 | XMS REPORT ---
[...] Medications Results No Known Results Summary Purpose [employer] Submission
--- OUTSIDE RECORDS SUMMARY | 2018-08-03 15:45 | XMS REPORT ---
[...] End Status Dosage System Date Date Flonase [facility] 91642122334 50 MCG/ACT Jul 26, Active 2 spray in Nasally Once a 2017 each day nostril ProAir HFA [facility] 95903811982 108 (90 Base) Jul 26, Active 2 puffs as MCG/ACT 2018 needed Inhalation every 6 hrs Tylenol # 3 NDC 0 300/30mg PO November 21, Active 1-2 tabs every 6 hrs. 2018 Levaquin ND 23899980650 500 MG Orally Active 1 tablet Once a day Gabapentin ND 10624166858 600 MG Orally Jul 26, Active 1 capsule Three times a 2018 day Zestoretic ND 09112932582 20-25 MG Orally Jul 26, Active 1 tablet Once a day 2016 Keppra ND 04713405561 500 MG Orally Active take two Twice a day -2 tablet(s) by mouth twice a day. Tramadol HCl ND 82909694671 50 MG Orally Active 1 tablet every 6 hrs as needed Promethazine HCl ND 02502615389 50 MG Orally November 21, Active 1 tablet every 6 hrs 2016 as needed Bentyl ND 45638436452 20 MG Orally November 21, Active 1 tablet Four times a 2018 day HumuLIN 70/30 ND 87270252721 (70-30) 100 Jul 26, Active 10 units KwikPen UNIT/ML 2016 Subcutaneous bid Results No Known Results Summary Purpose eClinicalWorks Submission
--- NOTE | 2018-08-03 16:23 | ER ---
Nurse's Notes [facility] Name: Britt Bower Age: 43 yrs Sex: Female : 1975 Arrival Date: 08/03/2018 Time: 15:47 Bed 24 Private MD: CHARISSE CORDOBA Diagnosis: Nausea and vomiting;Diarrhea, unspecified Presentation: 08/03 15:51 Presenting complaint: Patient states: N/V/D today around noon after eating [employer], sg worsening now, denies fever, reports abd pain x4 quadrants. Transition of care: patient was not received from another setting of care. Onset of symptoms was August 03, 2018. Risk Assessment: Do you want to hurt yourself or someone else? Patient reports no desire to harm self or others. Initial Sepsis Screen: Does the patient meet any 2 criteria? No. Patient's initial sepsis screen is negative. Does the patient have a suspected source of infection? No. Patient's initial sepsis screen is negative. Care prior to arrival: None. 15:51 Method Of Arrival: Ambulatory sg 15:51 Acuity: [facility] 3 sg [employer]: 15:59 LMP N/A - Irregular menses sg Historical: - Allergies: 15:51 Amoxicillin; sg 15:51 Aspirin; sg 15:51 Coconut; sg 15:51 diazepam; sg 15:51 Iodine; sg 15:51 Morphine; sg 15:51 Ondansetron HCl; sg 15:51 PENICILLINS; sg 15:51 Piperacillin Sodium; sg 15:51 tazobactam sodium; sg 15:51 Zofran; sg - PMHx: 15:51 Asthma; Diabetes - IDDM; epilepsy; history of stroke; Hypertension; neuropathy; sg - PSHx: 15:51 Cholecystectomy; Hysterectomy; ; sg - Immunization history:: Adult Immunizations not up to date. - Social history:: Smoking status: Patient/guardian denies using tobacco. - Ebola Screening: : Patient negative for fever greater than or equal to 101.5 degrees Fahrenheit, and additional compatible Ebola Virus Disease symptoms Patient denies exposure to infectious person Patient denies travel to an Ebola-affected area in the 21 days before illness onset No symptoms or risks identified at this time. Screenin:14 Abuse screen: Denies threats or abuse. Denies injuries from another. Nutritional aj screening: No deficits noted. Tuberculosis screening: No symptoms or risk factors identified. Fall Risk None identified. Assessment: 16:13 General: Appears in no apparent distress. comfortable, Behavior is calm, cooperative, aj appropriate for age. Pain: Denies pain. Neuro: Level of Consciousness is awake, alert, obeys commands, Oriented to person, place, time, situation, Appropriate for age. Respiratory: Airway is patent Respiratory effort is even, unlabored, Respiratory pattern is regular, symmetrical. GI: Abdomen is non-distended, obese, Reports diarrhea, nausea, vomiting. Derm: Skin is intact, is healthy with good turgor, Skin is pink, warm \T\ dry. normal. Vital Signs: 15:59 Pulse 62; Resp 17; Temp 98.0; Pulse Ox 98% on R/A; Weight 97.52 kg; Height 5 ft. 0 in. sg (152.40 cm); Pain 6/10; 15:59 BP 125 / 83; sg 15:59 Body Mass Index 41.99 (97.52 kg, 152.40 cm) ED Course: 15:47 Patient arrived in ED. sb2 15:47 CHARISSE CORDOBA is Private Physician. sb2 15:52 Triage completed. sg 15:52 Arm band placed on. sg 16:04 Milton Lechuga MD is Attending Physician. ps1 16:06 Pearl Malhotra, RN is Primary Nurse. aj 16:14 Patient has correct armband on for positive identification. aj 16:14 No provider procedures requiring assistance completed. Patient did not have IV access aj during this emergency room visit. 16:20 CHARISSE CORDOBA is Referral Physician. ps1 Administered Medications: No medications were administered Outcome: 16:22 Discharge ordered by . ps1 16:37 Discharged to home ambulatory. aj 16:37 Condition: good 16:37 Discharge instructions given to patient, Instructed on discharge instructions, follow up and referral plans. medication usage, Demonstrated understanding of instructions, follow-up care, medications, Prescriptions given X 1. 16:38 Patient left the ED. aj Signatures: Jered Anguiano, RN RN Pearl Wiley RN RN aj Singer, Phillip, MD MD ps1 Iona Domingo sb2 Corrections: (The following items were deleted from the chart) 15:59 15:51 Presenting complaint: Patient states: N/V/D for 2-3 days, worsening today, denies sg fever, reports abd pain x4 quadrants sg
--- NOTE | 2018-08-03 16:24 | EDPHYS ---
Physician Documentation [facility] Name: Britt Bower Age: 43 yrs Sex: Female : 1975 Arrival Date: 08/03/2018 Time: 15:47 Bed 24 Private MD: CHARISSE CORDOBA ED Physician Milton Lechuga HPI: 08/03 16:16 This 43 yrs old Female presents to ER via Ambulatory with complaints of ps1 Vomiting/Diarrhea. 16:16 patient went to [employer] and thinks she may have got food poisoning. States that she ps1 has nausea and vomiting since. Multiple episodes. No fever. 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 - Social history:: Smoking status: Patient/guardian denies using tobacco. - Ebola Screening: : Patient negative for fever greater than or equal to 101.5 degrees Fahrenheit, and additional compatible Ebola Virus Disease symptoms Patient denies exposure to infectious person Patient denies travel to an Ebola-affected area in the 21 days before illness onset No symptoms or risks identified at this time. ROS: 16:16 Constitutional: Negative for fever, chills, and weight loss, Eyes: Negative for injury, ps1 pain, redness, and discharge, Cardiovascular: Negative for chest pain, palpitations, and edema, Respiratory: Negative for shortness of breath, cough, wheezing, and pleuritic chest pain, MS/Extremity: Negative for injury and deformity, Skin: Negative for injury, rash, and discoloration, Neuro: Negative for headache, weakness, numbness, tingling, and seizure. 16:16 Abdomen/GI: Positive for nausea and vomiting, diarrhea. Exam: 16:16 Constitutional: This is a well developed, well nourished patient who is awake, alert, ps1 and in no acute distress. Head/Face: Normocephalic, atraumatic. Eyes: Pupils equal round and reactive to light, extra-ocular motions intact. Lids and lashes normal. Conjunctiva and sclera are non-icteric and not injected. Chest/axilla: Normal chest wall appearance and motion. Nontender with no deformity. No lesions are appreciated. Cardiovascular: Regular rate and rhythm. No gallops, murmurs, or rubs. Normal PMI, no JVD. No pulse deficits. Respiratory: Lungs have equal breath sounds bilaterally, clear to auscultation and percussion. No rales, rhonchi or wheezes noted. No increased work of breathing, no retractions or nasal flaring. Abdomen/GI: Soft, non-tender, with normal bowel sounds. No distension or tympany. No guarding or rebound. No evidence of tenderness throughout. Skin: Warm, dry with normal turgor. Normal color with no rashes, no lesions, and no evidence of cellulitis. MS/ Extremity: Pulses equal, no cyanosis. Neurovascular intact. Full, normal range of motion. Vital Signs: 15:59 Pulse 62; Resp 17; Temp 98.0; Pulse Ox 98% on R/A; Weight 97.52 kg; Height 5 ft. 0 in. sg (152.40 cm); Pain 6/10; 15:59 BP 125 / 83; sg 15:59 Body Mass Index 41.99 (97.52 kg, 152.40 cm) MDM: 16:16 Data reviewed: vital signs, nurses notes, and as a result, I will discharge patient. ps1 16:22 Patient medically screened. ps1 Administered Medications: No medications were administered Disposition: 08/03/18 16:22 Discharged to Home. Impression: Nausea and vomiting, Diarrhea, unspecified. - Condition is Stable. - Discharge Instructions: Nausea and Vomiting, Adult, [id number]. - Prescriptions for promethazine 25 mg Oral Tablet - take 1 tablet by ORAL route every 6 hours As needed; 20 tablet. - Work release form, Medication Reconciliation Form, Thank You Letter, Antibiotic Education, Prescription Opioid Use form. - Follow up: CHARISSE CORDOBA; When: As needed; Reason: Further diagnostic work-up, Recheck today's complaints, Continuance of care, Re-evaluation by your physician. Follow up: Emergency Department; When: As needed; Reason: Fever > 102 F, Repeat EKG. - Problem is new. - Symptoms have improved. Signatures: Jered Anguiano, RN Pearl Murcia RN RN aj Singer, Phillip, MD MD ps1 Corrections: (The following items were deleted from the chart) 16:38 16:22 08/03/2018 16:22 Discharged to Home. Impression: Nausea and vomiting; Diarrhea, aj unspecified. Condition is Stable. Forms are Work release form, Medication Reconciliation Form, Thank You Letter, Antibiotic Education, Prescription Opioid Use. Follow up: CHARISSE CORDOBA; When: As needed; Reason: Further diagnostic work-up, Recheck today's complaints, Continuance of care, Re-evaluation by your physician. Follow up: Emergency Department; When: As needed; Reason: Fever > 102 F, Repeat EKG. Problem is new. Symptoms have improved. ps1
[2018-08-03 19:02] VITALS: BP 125/83; TEMP 98; O2SAT 98
== END 2018-08-03 16:38 | disposition home or self-care (01) ==
LOC: ER 15:42
DX: R11.2 Nausea with vomiting, unspecified (principal); R19.7 Diarrhea, unspecified
CPT/HCPCS: 99282

== ENCOUNTER 2018-08-05 18:22 | Emergency (ER) | payer SELFPAY ==
--- OUTSIDE RECORDS SUMMARY | 2018-08-05 18:25 | XMS REPORT ---
[...] Status Dosage System Date Date HumuLIN 70/30 [facility] 57372542945 (70-30) 100 Jul 26, Active 10 units KwikPen UNIT/ML 2016 Subcutaneous bid ProAir HFA [facility] 05865885348 108 (90 Base) Jul 26, Active 2 puffs as MCG/ACT 2018 needed Inhalation every 6 hrs Keppra [facility] 39405406165 500 MG Orally Active take two Twice a day -2 tablet(s) by mouth twice a day. Gabapentin ND 30356666372 600 MG Orally Jul 26, Active 1 capsule Three times a 2018 day Zestoretic ND 76059711956 20-25 MG Orally Jul 26, Active 1 tablet Once a day 2015 Bentyl ND 83243481691 20 MG Orally November 21, Active 1 tablet Four times a 2018 day Tylenol # 3 NDC 0 300/30mg PO November 21, Active 1-2 tabs every 6 hrs. 2018 Promethazine HCl ND 70587597579 50 MG Orally November 21, Active 1 tablet every 6 hrs 2016 as needed Flonase NDC 44620210374 50 MCG/ACT Jul 26, Active 2 spray in Nasally Once a 2018 each day nostril Results No Known Results Summary Purpose eClinicalWorks Submission
--- OUTSIDE RECORDS SUMMARY | 2018-08-05 18:25 | XMS REPORT ---
[...] Status Dosage System Date Date Bentyl ND 77112883588 20 MG Orally November 21, Active 1 tablet Four times a 2018 day Tylenol # 3 NDC 0 300/30mg PO November 21, Active 1-2 tabs every 6 hrs. 2018 Flonase ND 68739466758 50 MCG/ACT Jul 26, Active 2 spray in Nasally Once a 2018 each day nostril Promethazine HCl ND 36305335103 50 MG Orally November 21, Active 1 tablet every 6 hrs 2016 as needed Gabapentin ND 70487204527 600 MG Orally Jul 26, Active 1 capsule Three times a 2018 day ProAir HFA ND 06056524766 108 (90 Base) Jul 26, Active 2 puffs as MCG/ACT 2018 needed Inhalation every 6 hrs Keppra ND 54625010582 500 MG Orally Active take two Twice a day -2 tablet(s) by mouth twice a day. Zestoretic ND 35857877298 20-25 MG Orally Jul 26, Active 1 tablet Once a day 2015 HumuLIN 70/30 ND 60959084409 (70-30) 100 Jul 26, Active 10 units KwikPen UNIT/ML 2016 Subcutaneous bid Results Name Result Date Reference Range Unit Abnormality Flag URINALYSIS AUTO W/O SCOPE (20111) ----NIT N [id number] ----URO 1.0 [id number] ----PROTEIN TR [id number] ----pH 5.5 20180219 ----BLO N [id number] ----GLUCOSE N [id number] ----ALBERTO N [id number] ----BILIRUBIN N [id number] ----KETONES N [id number] ----SPECIFIC GRAVITY 1.025 [id number] Summary Purpose eClinicalWorks Submission
--- OUTSIDE RECORDS SUMMARY | 2018-08-05 18:25 | XMS REPORT ---
[...] Status Dosage System Date Date ProAir HFA [facility] 10667291062 108 (90 Base) Jul 26, Active 2 puffs as MCG/ACT 2018 needed Inhalation every 6 hrs Keppra ND 21666089250 500 MG Orally Aug 17, Active 2 tablets every 12 hrs 2018 HumuLIN 70/30 ND 97924186460 (70-30) 100 Jul 26, Active 10 units KwikPen UNIT/ML 2016 Subcutaneous bid Flonase ND 07795815038 50 MCG/ACT Jul 26, Active 2 spray in Nasally Once a 2017 each day nostril Bentyl ND 12052894206 20 MG Orally November 21, Active 1 tablet Four times a 2018 day Gabapentin ND 20052114918 300 MG Orally Jul 26, Active 2 capsule Three times a 2018 before day bedtime Zestoretic ND 74837246199 20-25 MG Orally Jul 26, Active 1 tablet Once a day 2016 Promethazine HCl ND 56901720225 50 MG Orally November 21, Active 1 tablet every 6 hrs 2016 as needed Tylenol # 3 NDC 0 300/30mg PO November 21, Active 1-2 tabs every 6 hrs. 2018 Results Name Result Date Reference Range Unit Abnormality Flag URINALYSIS AUTO W/O SCOPE (46488) ----NIT N [id number] ----URO 0.2 20171113 ----PROTEIN 1+ 20171113 ----pH 5.5 20171113 ----BLO N 20171113 ----GLUCOSE N 20171113 ----ALBERTO N 20171113 ----BILIRUBIN 1+ 20171113 ----KETONES N 20171113 ----SPECIFIC GRAVITY >=1.030 20171113 Summary Purpose eClinicalWorks Submission
--- OUTSIDE RECORDS SUMMARY | 2018-08-05 18:25 | XMS REPORT ---
[...] Medications Results No Known Results Summary Purpose BlogHer[employer]BRAND-YOURSELF Submission
--- OUTSIDE RECORDS SUMMARY | 2018-08-05 18:26 | XMS REPORT ---
[...] End Status Dosage System Date Date Flonase [facility] 55757818100 50 MCG/ACT Jul 26, Active 2 spray in Nasally Once a 2017 each day nostril ProAir HFA [facility] 38754377791 108 (90 Base) Jul 26, Active 2 puffs as MCG/ACT 2018 needed Inhalation every 6 hrs Tylenol # 3 NDC 0 300/30mg PO November 21, Active 1-2 tabs every 6 hrs. 2018 Levaquin ND 83341774165 500 MG Orally Active 1 tablet Once a day Gabapentin ND 49679870116 600 MG Orally Jul 26, Active 1 capsule Three times a 2018 day Zestoretic ND 58903872672 20-25 MG Orally Jul 26, Active 1 tablet Once a day 2016 Keppra ND 95320469327 500 MG Orally Active take two Twice a day -2 tablet(s) by mouth twice a day. Tramadol HCl ND 21189847267 50 MG Orally Active 1 tablet every 6 hrs as needed Promethazine HCl ND 79605219193 50 MG Orally November 21, Active 1 tablet every 6 hrs 2016 as needed Bentyl ND 58428377641 20 MG Orally November 21, Active 1 tablet Four times a 2018 day HumuLIN 70/30 ND 44432609002 (70-30) 100 Jul 26, Active 10 units KwikPen UNIT/ML 2016 Subcutaneous bid Results No Known Results Summary Purpose eClinicalWorks Submission
[2018-08-05] MEDS ORDERED: NA CHLORIDE 0.9% 1,000 ML ONE (20:45)
[2018-08-05] MEDS ORDERED: METOCLOPRAMIDE 10 MG/2mL INJ ONE (20:45)
--- NOTE | 2018-08-05 21:19 | RAD REPORT ---
EXAM DESCRIPTION: CT - Stone Protocol - 08/05/2018 9:06 pm CLINICAL HISTORY: Abdominal pain. Vomiting and diarrhea COMPARISON: 2016 TECHNIQUE: Computed axial tomography of the abdomen pelvis was obtained without oral or IV contrast. Lack of IV and oral contrast limits evaluation of solid organs, bowel, and vessels. Coronal reformat yani images were obtained and reviewed. All CT scans are performed using dose optimization technique as appropriate and may include automated exposure control or mA/KV adjustment according to patient size. FINDINGS: A renal calculus is not seen. An ureteral calculus is not noted. A bladder calculus is not present. The liver, spleen, pancreas and adrenals appear grossly normal There is no evidence of diverticulitis. The appendix appears normal A tiny umbilical hernia seen. The gallbladder has been removed IMPRESSION: Negative for a genitourinary calculus
[2018-08-05 22:06] LABS: Urine Blood NEGATIVE (NEG); Urine Glucose NEGATIVE (NEG); Urine Protein NEGATIVE (NEG); Urine pH 5.5 (5.0-7.0)
[2018-08-05 23:49] LABS: Potassium 3.5 mmol/L (3.5-5.1)
--- NOTE | 2018-08-06 00:08 | ER ---
Nurse's Notes [facility] Name: Britt Bower Age: 43 yrs Sex: Female : 1975 Arrival Date: 08/05/2018 Time: 18:26 Bed 25 Private MD: Diagnosis: Nausea with vomiting, unspecified;Diarrhea, unspecified Presentation: 08/05 18:50 Presenting complaint: N/V/D and abdominal pain 1 week, weakness and blood in urine hb today. Transition of care: patient was not received from another setting of care. Onset of symptoms was July 30, 2018. Risk Assessment: Do you want to hurt yourself or someone else? Patient reports no desire to harm self or others. Care prior to arrival: None. 18:50 Method Of Arrival: Ambulatory hb 18:50 Acuity: [facility]KE 3 hb 19:00 Initial Sepsis Screen: Does the patient meet any 2 criteria? No. Patient's initial rr5 sepsis screen is negative. Does the patient have a suspected source of infection? No. Patient's initial sepsis screen is negative. Historical: - Allergies: 18:53 Amoxicillin; hb 18:53 Aspirin; hb 18:53 Coconut; hb 18:53 diazepam; hb 18:53 Iodine; hb 18:53 Morphine; hb 18:53 Ondansetron HCl; hb 18:53 PENICILLINS; hb 18:53 Piperacillin Sodium; hb 18:53 tazobactam sodium; hb 18:53 Zofran; hb - Immunization history:: Adult Immunizations up to date. - Social history:: Smoking status: Patient/guardian denies using tobacco. - Ebola Screening: : No symptoms or risks identified at this time. Screenin:35 Abuse screen: Denies threats or abuse. Denies injuries from another. Nutritional rr5 screening: No deficits noted. Tuberculosis screening: No symptoms or risk factors identified. Fall Risk None identified. Assessment: 19:35 General: Appears in no apparent distress. comfortable, Behavior is calm, cooperative, rr5 appropriate for age. Pain: Complains of pain in left upper andlower quadrant Pain does not radiate. Pain currently is 7 out of 10 on a pain scale. Quality of pain is described as aching, Pain began gradually, Is intermittent. Neuro: Level of Consciousness is awake, alert, obeys commands, Oriented to person, place, time, situation, Appropriate for age. Cardiovascular: Capillary refill < 3 seconds Patient's skin is warm and dry. Respiratory: Airway is patent Respiratory effort is even, unlabored, Respiratory pattern is regular, symmetrical. GI: Abdomen is round Reports lower abdominal pain, upper abdominal pain, diarrhea, vomiting. : Reports blood in urine. EENT: No signs and/or symptoms were reported regarding the EENT system. Derm: Skin is intact, Skin temperature is warm. Musculoskeletal: Capillary refill < 3 seconds, Range of motion: intact in all extremities. 20:30 Reassessment: Patient appears in no apparent distress at this time. Patient is alert, rr5 oriented x 3, equal unlabored respirations, skin warm/dry/pink. called the laboratory, unable to get blood sample. 21:55 Reassessment: Patient appears in no apparent distress at this time. 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 will try to draw after the bag of fluid consume. 22:30 Reassessment: Patient appears in no apparent distress at this time. Patient is alert, rr5 oriented x 3, equal unlabored respirations, skin warm/dry/pink. blood extracted. 23:30 Reassessment: Patient appears in no apparent distress at this time. Patient is alert, rr5 oriented x 3, equal unlabored respirations, skin warm/dry/pink. Patient states feeling better. Patient states symptoms have improved. 08/06 00:40 Reassessment: Patient appears in no apparent distress at this time. tolerated the PO rr5 challenge. discharge instruction given and explained without complaints made. Vital Signs: 08/05 18:49 BP 148 / 101; Pulse 68; Resp 18; Temp 97.8; Pulse Ox 99% on R/A; Pain 8/10; hb 19:35 BP 103 / 68; Pulse 61; Resp 17; Temp 98; Pulse Ox 99% ; Pain 7/10; rr5 20:30 BP 115 / 60; Pulse 65; Resp 16; Pulse Ox 99% ; rr5 21:30 BP 104 / 65; Pulse 60; Resp 16; Pulse Ox 99% ; rr5 22:30 BP 105 / 62; Pulse 65; Resp 19; Pulse Ox 99% ; rr5 23:30 BP 110 / 63; Pulse 61; Resp 16; Pulse Ox 99% ; rr5 08/06 00:15 BP 121 / 75; Pulse 65; Resp 17; Pulse Ox 99% ; rr5 ED Course: 08/05 18:26 Patient arrived in ED. rg4 18:51 Triage completed. hb 18:52 Arm band placed on right wrist. hb 19:40 Volodymyr Fu, RN is Primary Nurse. rr5 19:47 [facility]C [facility]. kb 19:47 Rm Gilbert MD is Attending Physician. kb 19:50 Patient has correct armband on for positive identification. Bed in low position. Call rr5 light in reach. Pulse ox on. NIBP on. 20:49 Inserted saline lock: 24 gauge in left wrist, using aseptic technique. ,using aseptic rr5 technique. inserted by lead technologist in cytogenetics zohra Blood collected. 21:06 CT Stone Protocol In Process Unspecified. EDMS 08/06 00:44 No provider procedures requiring assistance completed. IV discontinued, intact, rr5 bleeding controlled, No redness/swelling at site. Pressure dressing applied. Administered Medications: 08/05 20:49 Drug: NS 0.9% 1000 ml Route: IV; Rate: 1000 ml; Site: left wrist; rr5 22:30 Follow up: Response: No adverse reaction; IV Status: Completed infusion; IV Intake: rr5 1000ml 20:50 Drug: Reglan 10 mg Route: IVP; Site: left wrist; rr5 08/06 00:14 Follow up: Response: No adverse reaction rr5 Intake: 08/05 22:30 IV: 1000ml; Total: 1000ml. rr5 Outcome: 08/06 00:08 Discharge ordered by . kb 00:44 Discharged to home ambulatory. rr5 00:44 Condition: stable 00:44 Discharge instructions given to patient, Instructed on discharge instructions, follow up and referral plans. Demonstrated understanding of instructions, follow-up care. 00:48 Patient left the ED. rr5 Signatures: Dispatcher [employer] EDFL Ny Johnson FNP-C FNP-Ckb Baxter, Heather, RN RN hb Garcia, Rubi 4 Floridalma Amato 2 Volodymyr Fu, RN RN rr5 Corrections: (The following items were deleted from the chart) 08/05 20:53 20:47 Patient moved to ID via wheelchair. 2 vm2
--- NOTE | 2018-08-06 00:09 | EDPHYS ---
Physician Documentation [facility] Name: Britt Bower Age: 43 yrs Sex: Female : 1975 Arrival Date: 08/05/2018 Time: 18:26 Bed 25 Private MD: ED Physician Rm Gilbert HPI: 08/05 22:57 This 43 yrs old Female presents to ER via Ambulatory with complaints of kb Vomiting/Diarrhea. 22:57 The patient presents to the emergency department with nausea, vomiting, diarrhea, kb abdominal pain. Onset: The symptoms/episode began/occurred 3 day(s) ago. Possible causes: bad food exposure. The symptoms are aggravated by nothing. The symptoms are alleviated by nothing. Associated signs and symptoms: Pertinent positives: abdominal pain, diarrhea, nausea, vomiting. Severity of symptoms: At their worst the symptoms were moderate in the emergency department the symptoms are unchanged. The patient has not experienced similar symptoms in the past. The patient has been recently seen at the [facility] Emergency Department, this week, for similar complaints. Historical: - Allergies: 18:53 Amoxicillin; hb 18:53 Aspirin; hb 18:53 Coconut; hb 18:53 diazepam; hb 18:53 Iodine; hb 18:53 Morphine; hb 18:53 Ondansetron HCl; hb 18:53 PENICILLINS; hb 18:53 Piperacillin Sodium; hb 18:53 tazobactam sodium; hb 18:53 Zofran; hb - Immunization history:: Adult Immunizations up to date. - Social history:: Smoking status: Patient/guardian denies using tobacco. - Ebola Screening: : No symptoms or risks identified at this time. ROS: 22:56 Constitutional: Negative for fever, chills, and weight loss, ENT: Negative for injury, kb pain, and discharge, Neck: Negative for injury, pain, and swelling, Cardiovascular: Negative for chest pain, palpitations, and edema, Respiratory: Negative for shortness of breath, cough, wheezing, and pleuritic chest pain, Back: Negative for injury and pain, : Negative for injury, bleeding, discharge, and swelling, MS/Extremity: Negative for injury and deformity, Skin: Negative for injury, rash, and discoloration, Neuro: Negative for headache, weakness, numbness, tingling, and seizure. 22:56 Abdomen/GI: Positive for abdominal pain, nausea, vomiting, and diarrhea, Negative for constipation, abdominal cramps, abdominal distension, anorexia. Exam: 22:57 Constitutional: This is a well developed, well nourished patient who is awake, alert, kb and in no acute distress. Head/Face: Normocephalic, atraumatic. Chest/axilla: Normal chest wall appearance and motion. Nontender with no deformity. No lesions are appreciated. Cardiovascular: Regular rate and rhythm with a normal S1 and S2. No gallops, murmurs, or rubs. Normal PMI, no JVD. No pulse deficits. Respiratory: Lungs have equal breath sounds bilaterally, clear to auscultation and percussion. No rales, rhonchi or wheezes noted. No increased work of breathing, no retractions or nasal flaring. Back: No spinal tenderness. No costovertebral tenderness. Full range of motion. Skin: Warm, dry with normal turgor. Normal color with no rashes, no lesions, and no evidence of cellulitis. MS/ Extremity: Pulses equal, no cyanosis. Neurovascular intact. Full, normal range of motion. Neuro: Awake and alert, GCS 15, oriented to person, place, time, and situation. Cranial nerves II-XII grossly intact. Motor strength 5/5 in all extremities. Sensory grossly intact. Cerebellar exam normal. Normal gait. 22:57 Abdomen/GI: Inspection: abdomen appears normal, Bowel sounds: normal, in all quadrants, Palpation: soft, in all quadrants, moderate abdominal tenderness, in the left upper quadrant and left lower quadrant. Vital Signs: 18:49 BP 148 / 101; Pulse 68; Resp 18; Temp 97.8; Pulse Ox 99% on R/A; Pain 8/10; hb 19:35 BP 103 / 68; Pulse 61; Resp 17; Temp 98; Pulse Ox 99% ; Pain 7/10; rr5 20:30 BP 115 / 60; Pulse 65; Resp 16; Pulse Ox 99% ; rr5 21:30 BP 104 / 65; Pulse 60; Resp 16; Pulse Ox 99% ; rr5 22:30 BP 105 / 62; Pulse 65; Resp 19; Pulse Ox 99% ; rr5 23:30 BP 110 / 63; Pulse 61; Resp 16; Pulse Ox 99% ; rr5 08/06 00:15 BP 121 / 75; Pulse 65; Resp 17; Pulse Ox 99% ; rr5 MDM: 08/05 19:47 Patient medically screened. kb 22:55 Data reviewed: vital signs, nurses notes. Data interpreted: Pulse oximetry: on room air kb is 99 %. Interpretation: normal. Counseling: I had a detailed discussion with the patient and/or guardian regarding: the historical points, exam findings, and any diagnostic results supporting the discharge/admit diagnosis, lab results, radiology results, the need for outpatient follow up, a family practitioner, to return to the emergency department if symptoms worsen or persist or if there are any questions or concerns that arise at home. 08/05 20:15 Order name: Basic Metabolic Panel; Complete Time: 23:54 kb 08/05 20:15 Order name: CBC with Diff; Complete Time: 22:51 kb 08/05 20:15 Order name: [place] Screen Profile; Complete Time: 00:07 kb 08/05 20:15 Order name: CT Stone Protocol; Complete Time: 21:21 kb 08/05 21:17 Order name: Urine Dipstick--Ancillary (enter results); Complete Time: 22:13 ag4 08/05 21:17 Order name: Urine --Ancillary (enter results); Complete Time: 22:13 ag4 08/05 20:15 Order name: IV Saline Lock; Complete Time: 21:01 kb 08/05 20:15 Order name: Labs collected and sent; Complete Time: 21:01 kb 08/05 20:15 Order name: Urine Dipstick-Ancillary (obtain specimen); Complete Time: 20:39 kb 08/06 00:08 Order name: PO challenge; Complete Time: 00:13 kb Administered Medications: 20:49 Drug: NS 0.9% 1000 ml Route: IV; Rate: 1000 ml; Site: left wrist; rr5 22:30 Follow up: Response: No adverse reaction; IV Status: Completed infusion; IV Intake: rr5 1000ml 20:50 Drug: Reglan 10 mg Route: IVP; Site: left wrist; rr5 08/06 00:14 Follow up: Response: No adverse reaction rr5 Disposition: 01:39 Co-signature as Attending Physician, Rm Gilbert MD. gs Disposition: 08/06/18 00:08 Discharged to Home. Impression: Nausea with vomiting, unspecified, Diarrhea, unspecified. - Condition is Stable. - Discharge Instructions: Food Choices to Help Relieve Diarrhea, Adult, Nausea and Vomiting, Adult, Jknj-aq-Axph, Diarrhea, Adult, Cbft-kx-Vdal. - Medication Reconciliation Form, Thank You Letter, Antibiotic Education, Prescription Opioid Use, Work release form form. - Follow up: Emergency Department; When: As needed; Reason: Worsening of condition. Follow up: Private Physician; When: 2 - 3 days; Reason: Recheck today's complaints, Continuance of care, Re-evaluation by your physician. Signatures: Dispatcher [employer] EDMS Ny Johnson, SALES PROMOTER-C SALES PROMOTER-Ckb Giselle Mcmullen RN RN Rm Gilbert MD MD Volodymyr Fu RN RN rr5 Corrections: (The following items were deleted from the chart) 00:48 00:08 08/06/2018 00:08 Discharged to Home. Impression: Nausea with vomiting, rr5 unspecified; Diarrhea, unspecified. Condition is Stable. Forms are Medication Reconciliation Form, Thank You Letter, Antibiotic Education, Prescription Opioid Use. Follow up: Emergency Department; When: As needed; Reason: Worsening of condition. Follow up: Private Physician; When: 2 - 3 days; Reason: Recheck today's complaints, Continuance of care, Re-evaluation by your physician. kb
[2018-08-06 01:57] VITALS: O2SAT 99
[2018-08-06 01:59] VITALS: TEMP 98
[2018-08-06 02:06] VITALS: BP 121/75
== END 2018-08-06 00:48 | disposition home or self-care (01) ==
LOC: ER 18:22
DX: R19.7 Diarrhea, unspecified (principal); Z88.0 Allergy status to penicillin; Z88.1 Allergy status to other antibiotic agents; Z88.5 Allergy status to narcotic agent; Z88.6 Allergy status to analgesic agent; Z88.8 Allergy status to other drugs, medicaments and biological substances; Z91.018 Allergy to other foods; Z91.048 Other nonmedicinal substance allergy status
CPT/HCPCS: 36415; 74176; 76377; 80048; 81003; 81025; 85025; 86308; J2765; J7030

== ENCOUNTER 2018-08-20 14:08 | Emergency (ER) | payer SELFPAY ==
--- OUTSIDE RECORDS SUMMARY | 2018-08-20 14:09 | XMS REPORT ---
[...] Dosage System Date Date ProAir HFA [facility] [id number] 108 (90 Base) Jul 26, Active 2 puffs as MCG/ACT 2018 needed Inhalation every 6 hrs Keppra ND 83605810306 500 MG Orally Aug 17, Active 2 tablets every 12 hrs 2018 HumuLIN 70/30 ND 79808120204 (70-30) 100 Jul 26, Active 10 units KwikPen UNIT/ML 2016 Subcutaneous bid Flonase ND 66893682860 50 MCG/ACT Jul 26, Active 2 spray in Nasally Once a 2017 each day nostril Bentyl ND 04906505768 20 MG Orally November 21, Active 1 tablet Four times a 2018 day Gabapentin ND 68491011829 300 MG Orally Jul 26, Active 2 capsule Three times a 2018 before day bedtime Zestoretic ND 34071001211 20-25 MG Orally Jul 26, Active 1 tablet Once a day 2016 Promethazine HCl ND 62933659284 50 MG Orally November 21, Active 1 tablet every 6 hrs 2016 as needed Tylenol # 3 NDC 0 300/30mg PO November 21, Active 1-2 tabs every 6 hrs. 2018 Results Name Result Date Reference Range Unit Abnormality Flag URINALYSIS AUTO W/O SCOPE (30870) ----NIT N 20171113 ----URO 0.2 20171113 ----PROTEIN 1+ 20171113 ----pH 5.5 20171113 ----BLO N 20171113 ----GLUCOSE N 20171113 ----ALBERTO N 20171113 ----BILIRUBIN 1+ 20171113 ----KETONES N 20171113 ----SPECIFIC GRAVITY >=1.030 20171113 Summary Purpose eClinicalWorks Submission
--- OUTSIDE RECORDS SUMMARY | 2018-08-20 14:09 | XMS REPORT ---
[...] Status Dosage System Date Date Bentyl ND 45206156075 20 MG Orally November 21, Active 1 tablet Four times a 2018 day Tylenol # 3 NDC 0 300/30mg PO November 21, Active 1-2 tabs every 6 hrs. 2018 Flonase ND 29134113062 50 MCG/ACT Jul 26, Active 2 spray in Nasally Once a 2018 each day nostril Promethazine HCl ND 23241169290 50 MG Orally November 21, Active 1 tablet every 6 hrs 2016 as needed Gabapentin ND 06020568632 600 MG Orally Jul 26, Active 1 capsule Three times a 2018 day ProAir HFA ND 54985779910 108 (90 Base) Jul 26, Active 2 puffs as MCG/ACT 2018 needed Inhalation every 6 hrs Keppra ND 84634832901 500 MG Orally Active take two Twice a day -2 tablet(s) by mouth twice a day. Zestoretic ND 97184434963 20-25 MG Orally Jul 26, Active 1 tablet Once a day 2015 HumuLIN 70/30 ND 90000794904 (70-30) 100 Jul 26, Active 10 units KwikPen UNIT/ML 2016 Subcutaneous bid Results Name Result Date Reference Range Unit Abnormality Flag URINALYSIS AUTO W/O SCOPE (56541) ----NIT N 20180219 ----URO 1.0 20180219 ----PROTEIN TR 20180219 ----pH 5.5 20180219 ----BLO N 20180219 ----GLUCOSE N 20180219 ----ALBERTO N 20180219 ----BILIRUBIN N 20180219 ----KETONES N 20180219 ----SPECIFIC GRAVITY 1.025 20180219 Summary Purpose eClinicalWorks Submission
--- OUTSIDE RECORDS SUMMARY | 2018-08-20 14:09 | XMS REPORT ---
[...] Status Dosage System Date Date HumuLIN 70/30 [facility] 13028813384 (70-30) 100 Jul 26, Active 10 units KwikPen UNIT/ML 2016 Subcutaneous bid ProAir HFA [facility] 02840830303 108 (90 Base) Jul 26, Active 2 puffs as MCG/ACT 2018 needed Inhalation every [address] [facility] 93035135167 500 MG Orally Active take two Twice a day -2 tablet(s) by mouth twice a day. Gabapentin ND 17371921795 600 MG Orally Jul 26, Active 1 capsule Three times a 2018 day Zestoretic ND 19543378069 20-25 MG Orally Jul 26, Active 1 tablet Once a day 2015 Bentyl ND 95664315748 20 MG Orally November 21, Active 1 tablet Four times a 2018 day Tylenol # 3 NDC 0 300/30mg PO November 21, Active 1-2 tabs every 6 hrs. 2018 Promethazine HCl ND 89974264335 50 MG Orally November 21, Active 1 tablet every 6 hrs 2016 as needed Flonase NDC 32203052449 50 MCG/ACT Jul 26, Active 2 spray in Nasally Once a 2018 each day nostril Results No Known Results Summary Purpose eClinicalWorks Submission
--- OUTSIDE RECORDS SUMMARY | 2018-08-20 14:09 | XMS REPORT ---
[...] Medications Results No Known Results Summary Purpose [employer] Submission
--- OUTSIDE RECORDS SUMMARY | 2018-08-20 14:10 | XMS REPORT ---
[...] End Status Dosage System Date Date Flonase [facility] 84556456468 50 MCG/ACT Jul 26, Active 2 spray in Nasally Once a 2017 each day nostril ProAir HFA [facility] 57201224604 108 (90 Base) Jul 26, Active 2 puffs as MCG/ACT 2018 needed Inhalation every 6 hrs Tylenol # 3 NDC 0 300/30mg PO November 21, Active 1-2 tabs every 6 hrs. 2018 Levaquin ND 05713862514 500 MG Orally Active 1 tablet Once a day Gabapentin ND 70127806143 600 MG Orally Jul 26, Active 1 capsule Three times a 2018 day Zestoretic ND 36860352815 20-25 MG Orally Jul 26, Active 1 tablet Once a day 2016 Keppra ND 66193526159 500 MG Orally Active take two Twice a day -2 tablet(s) by mouth twice a day. Tramadol HCl ND 09588386629 50 MG Orally Active 1 tablet every 6 hrs as needed Promethazine HCl ND 66585146266 50 MG Orally November 21, Active 1 tablet every 6 hrs 2016 as needed Bentyl ND 95896775334 20 MG Orally November 21, Active 1 tablet Four times a 2018 day HumuLIN 70/30 ND 47771310364 (70-30) 100 Jul 26, Active 10 units KwikPen UNIT/ML 2016 Subcutaneous bid Results No Known Results Summary Purpose eClinicalWorks Submission
--- NOTE | 2018-08-20 15:29 | RAD REPORT ---
EXAM DESCRIPTION: RAD - Chest Pa And Lat (2 Views) - 08/20/2018 3:08 pm CLINICAL HISTORY: SOB Chest pain. COMPARISON: Chest Pa And Lat (2 Views) dated 05/14/2018; Chest Single View dated 09/28/2017; Chest Si ngle View dated 02/20/2017; Chest Single View dated 02/11/2017 FINDINGS: The lungs are clear. The heart is normal in size. No displaced fractures. IMPRESSION: No acute or concerning finding suspected.
--- NOTE | 2018-08-20 15:35 | EDPHYS ---
Physician Documentation [facility] Name: Britt Bower Age: 43 yrs Sex: Female : 1975 Arrival Date: 08/20/2018 Time: 14:12 Bed 30 Private MD: CHARISSE CORDOBA ED Physician Adam Peterson HPI: 08/20 15:30 This 43 yrs old Female presents to ER via Ambulatory with complaints of jmm Congestion, Cough. 15:30 The patient or guardian reports cough. Onset: The symptoms/episode began/occurred jmm gradually, 2 day(s) ago. Associated signs and symptoms: Pertinent positives:. This is a 43 year old female with a history of dm, epilepsy that presents to the ED with complaints of sinus pressure, cough, fever, body aches beginning approx 2 days ago. . 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: 14:17 LMP N/A - Hysterectomy aj1 Historical: - Allergies: 14:17 Amoxicillin; aj1 14:17 Aspirin; aj1 14:17 Coconut; aj1 14:17 diazepam; aj1 14:17 Iodine; aj1 14:17 Morphine; aj1 14:17 Ondansetron HCl; aj1 14:17 PENICILLINS; aj1 14:17 Piperacillin Sodium; aj1 14:17 tazobactam sodium; aj1 14:17 Zofran; aj1 - Home Meds: 14:17 albuterol sulfate 90 mcg/actuation Inhl HFAA [Active]; flonace 2 puffs/day daily aj1 [Active]; gabapentin 600 mg Oral tab 1 tab 3 times per day for Neuropathic Pain [Active]; Humulin 70/30 100 unit/mL (70-30) Sub-Q tab 5 units twice a day for Type 2 Diabetes Mellitus [Active]; levetiracetam 500 mg Oral tab 1 tab 4 times a day for Tonic-Clonic Epilepsy Treatment Adjunct [Active]; lisinopril-hydrochlorothiazide 20-25 mg Oral tab 1 tab once daily for Hypertension [Active]; - PMHx: 14:17 Asthma; Diabetes - IDDM; epilepsy; history of stroke; Hypertension; neuropathy; aj1 - Immunization history:: Flu vaccine is up to date. - Social history:: Smoking status: Patient/guardian denies using tobacco. - Ebola Screening: : Patient denies travel to an Ebola-affected area in the 21 days before illness onset. ROS: 15:30 Eyes: Negative for injury, pain, redness, and discharge, Cardiovascular: Negative for jmm chest pain, palpitations, and edema. 15:30 Constitutional: Positive for body aches, chills. 15:30 Respiratory: Positive for cough. 15:30 All other systems are negative. Exam: 15:30 Constitutional: This is a well developed, well nourished patient who is awake, alert, jmm and in no acute distress. 15:30 Neck: Trachea midline, Supple Chest/axilla: Normal chest wall appearance and motion. 15:30 Head/face: Sinus tenderness, that is moderate, is located over the right ethmoid sinus and left ethmoid sinus. 15:30 ENT: TM's: are normal, Posterior pharynx: erythema, that is mild. 15:30 Cardiovascular: Rate: normal, Rhythm: regular, Pulses: no pulse deficits are appreciated. 15:30 Respiratory: the patient does not display signs of respiratory distress, Respirations: normal, Breath sounds: are clear throughout. 15:30 Abdomen/GI: Inspection: abdomen appears normal, Bowel sounds: normal, Palpation: abdomen is soft and non-tender. 15:30 Musculoskeletal/extremity: ROM: intact in all extremities. 15:30 Skin: Appearance: Color: normal in color. 15:30 Neuro: Orientation: is normal, Mentation: is normal, Memory: is normal, Gait: is steady. 15:30 Psych: Behavior/mood is pleasant, cooperative. Vital Signs: 14:17 BP 130 / 84; Pulse 76; Resp 18; Temp 97.4; Pulse Ox 97% on R/A; Height 5 ft. 0 in. aj1 (152.40 cm) (R); Pain 8/10; 15:25 BP 120 / 75; Pulse 73; Resp 18; Pulse Ox 100% on R/A; mg2 MDM: 15:25 Patient medically screened. [facility] 15:30 Data reviewed: vital signs, nurses notes. Data interpreted: Pulse oximetry: on room air jmm is 100 %. Interpretation: normal. Counseling: I had a detailed discussion with the patient and/or guardian regarding: the historical points, exam findings, and any diagnostic results supporting the discharge/admit diagnosis, lab results, radiology results, the need for outpatient follow up, to return to the emergency department if symptoms worsen or persist or if there are any questions or concerns that arise at home. ED course: Patient is alert and non toxic in appearance in the ED. No signs of resp distress are appreciated. Patient advised to follow up with PCP for reevaluation and otherwise given return precautions. Patient understood and agrees with the plan of care. . 08/20 14:20 Order name: Flu; Complete Time: 15:12 [facility] 08/20 14:20 Order name: Strep; Complete Time: 15:12 [facility] 08/20 14:20 Order name: Chest Pa And Lat (2 Views) XRAY; Complete Time: 15:29 [facility] 08/20 14:37 Order name: Throat Culture EDMS Administered Medications: No medications were administered Disposition: 16:08 Co-signature as Attending Physician, Adam Peterson MD I agree with the assessment and kdr plan of care. Disposition: 08/20/18 15:34 Discharged to Home. Impression: Acute bronchitis, Acute ethmoidal sinusitis. - Condition is Stable. - Discharge Instructions: Acute Bronchitis, Adult, Sinusitis, Adult. - Prescriptions for Zithromax Z- Jori 250 mg Oral Tablet - take 1 tablet by ORAL route as directed for 5 days Day 1 - take two (2) tablets one time. Day 2, 3, 4 , 5 take one (1) tablet once daily.; 6 tablet. - Medication Reconciliation Form, Thank You Letter, Antibiotic Education, Prescription Opioid Use, Work release form form. - Follow up: CHARISSE CORDOBA; When: 2 - 3 days; Reason: Recheck today's complaints, Continuance of care, Re-evaluation by your physician. Signatures: Dispatcher [employer] EDCoreen Valdez RN RN aj1 Adam Peterson MD MD kdr Mickail, Joel, PA PA jmm Baxter, Heather, RN RN hb Corrections: (The following items were deleted from the chart) 15:43 15:34 08/20/2018 15:34 Discharged to Home. Impression: Acute bronchitis; Acute hb ethmoidal sinusitis. Condition is Stable. Forms are Medication Reconciliation Form, Thank You Letter, Antibiotic Education, Prescription Opioid Use. Follow up: CHARISSE CORDOBA; When: 2 - 3 days; Reason: Recheck today's complaints, Continuance of care, Re-evaluation by your physician. kiram
--- NOTE | 2018-08-20 15:35 | ER ---
Nurse's Notes [facility] Name: Britt Bower Age: 43 yrs Sex: Female : 1975 Arrival Date: 08/20/2018 Time: 14:12 Bed 30 Private MD: CHARISSE CORDOBA Diagnosis: Acute bronchitis;Acute ethmoidal sinusitis Presentation: 08/20 14:15 Presenting complaint: Patient states: She woke up today with cough, ear pain and aj1 shortness of breath. Reports pain to both sides that is worse with coughing. Transition of care: patient was not received from another setting of care. Resp Distress? No respiratory distress is noted at this time. Onset of symptoms was August 20, 2018. Risk Assessment: Do you want to hurt yourself or someone else? Patient reports no desire to harm self or others. Initial Sepsis Screen: Does the patient meet any 2 criteria? No. Patient's initial sepsis screen is negative. Does the patient have a suspected source of infection? Yes: Productive cough/pneumonia. Care prior to arrival: None. 14:15 Method Of Arrival: Ambulatory aj1 14:15 Acuity: [facility] 4 aj1 Triage Assessment: 14:17 General: Appears in no apparent distress. uncomfortable, Behavior is calm, cooperative, aj1 appropriate for age. Pain: Complains of pain in left lateral posterior chest and right lateral posterior chest Pain currently is 8 out of 10 on a pain scale. EENT: Reports nasal congestion nasal discharge. Neuro: Level of Consciousness is awake, alert, obeys commands. Cardiovascular: Patient's skin is warm and dry. Respiratory: Reports shortness of breath cough that is hacking, persistent Airway is patent Respiratory effort is even, unlabored, Respiratory pattern is regular, symmetrical. 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: 14:17 LMP N/A - Hysterectomy aj1 Historical: - Allergies: 14:17 Amoxicillin; aj1 14:17 Aspirin; aj1 14:17 Coconut; aj1 14:17 diazepam; aj1 14:17 Iodine; aj1 14:17 Morphine; aj1 14:17 Ondansetron HCl; aj1 14:17 PENICILLINS; aj1 14:17 Piperacillin Sodium; aj1 14:17 tazobactam sodium; aj1 14:17 Zofran; aj1 - Home Meds: 14:17 albuterol sulfate 90 mcg/actuation Inhl HFAA [Active]; flonace 2 puffs/day daily aj1 [Active]; gabapentin 600 mg Oral tab 1 tab 3 times per day for Neuropathic Pain [Active]; Humulin 70/30 100 unit/mL (70-30) Sub-Q tab 5 units twice a day for Type 2 Diabetes Mellitus [Active]; levetiracetam 500 mg Oral tab 1 tab 4 times a day for Tonic-Clonic Epilepsy Treatment Adjunct [Active]; lisinopril-hydrochlorothiazide 20-25 mg Oral tab 1 tab once daily for Hypertension [Active]; - PMHx: 14:17 Asthma; Diabetes - IDDM; epilepsy; history of stroke; Hypertension; neuropathy; aj1 - Immunization history:: Flu vaccine is up to date. - Social history:: Smoking status: Patient/guardian denies using tobacco. - Ebola Screening: : Patient denies travel to an Ebola-affected area in the 21 days before illness onset. Screenin:05 Abuse screen: Denies threats or abuse. Denies injuries from another. Nutritional mg2 screening: No deficits noted. Tuberculosis screening: No symptoms or risk factors identified. Fall Risk None identified. Assessment: 15:05 Reassessment: patient sent for xray. mg2 15:24 General: Appears in no apparent distress. comfortable, Behavior is calm, cooperative. mg2 Pain: Denies pain. Neuro: Level of Consciousness is awake, alert, obeys commands, Oriented to person, place, time, situation. Cardiovascular: Capillary refill < 3 seconds Patient's skin is warm and dry. Respiratory: Breath sounds are clear bilaterally. in right upper lobe, left upper lobe, right middle lobe and left lower lobe. Respiratory: Reports cough that is non-productive, congestion. GI: No signs and/or symptoms were reported involving the gastrointestinal system. : No signs and/or symptoms were reported regarding the genitourinary system. EENT: No signs and/or symptoms were reported regarding the EENT system. Derm: Skin is intact, is healthy with good turgor, Skin is pink, warm \T\ dry. normal. Musculoskeletal: Circulation, motion, and sensation intact. Capillary refill < 3 seconds. 15:43 Respiratory: Airway is patent Respiratory effort is even, unlabored, Respiratory mg2 pattern is regular, symmetrical. Vital Signs: 14:17 BP 130 / 84; Pulse 76; Resp 18; Temp 97.4; Pulse Ox 97% on R/A; Height 5 ft. 0 in. aj1 (152.40 cm) (R); Pain 8/10; 15:25 BP 120 / 75; Pulse 73; Resp 18; Pulse Ox 100% on R/A; mg2 ED Course: 14:12 Patient arrived in ED. mr 14:12 ADALID CHARISSE is Private Physician. mr 14:16 Triage completed. aj1 14:17 Arm band placed on Patient placed in waiting room, Patient notified of wait time. aj1 14:55 Rafi Cooney, RN is Primary Nurse. mg2 14:56 Cedric August PA is PHCP. jmm 14:56 Adam Peterson MD is Attending Physician. jmm 15:05 No provider procedures requiring assistance completed. Patient did not have IV access mg2 during this emergency room visit. 15:06 Patient has correct armband on for positive identification. Door closed. mg2 15:07 Chest Pa And Lat (2 Views) XRAY In Process Unspecified. EDMS 15:34 CHARISSE CORDOBA is Referral Physician. [facility] Administered Medications: No medications were administered Outcome: 15:34 Discharge ordered by MD. [facility] 15:43 Patient left the ED. hb 15:43 Discharged to home ambulatory. mg2 15:43 Condition: stable 15:43 Discharge instructions given to patient, Instructed on discharge instructions, follow up and referral plans. medication usage, Demonstrated understanding of instructions, follow-up care, medications, Prescriptions given X 1. Signatures: Dispatcher [employer] EDMS Coreen Hernandez RN RN aj Cedric August PA PA jmm Rivera, Mary mr Giselle Mcmullen RN RN Rafi Cooney, MERRICK SIN mg2
[2018-08-20 16:17] VITALS: TEMP 97.4
[2018-08-20 16:18] VITALS: BP 120/75; O2SAT 100
== END 2018-08-20 15:43 | disposition home or self-care (01) ==
LOC: ER 14:08
DX: J20.9 Acute bronchitis, unspecified (principal); J01.20 Acute ethmoidal sinusitis, unspecified; J45.909 Unspecified asthma, uncomplicated; E11.9 Type 2 diabetes mellitus without complications; I10 Essential (primary) hypertension; Z79.4 Long term (current) use of insulin; Z88.6 Allergy status to analgesic agent; Z88.5 Allergy status to narcotic agent; Z88.0 Allergy status to penicillin; Z88.8 Allergy status to other drugs, medicaments and biological substances
CPT/HCPCS: 71046; 87070; 87081; 87804; 99283

== ENCOUNTER 2018-08-22 14:14 | Emergency (ER) | payer SELFPAY ==
--- OUTSIDE RECORDS SUMMARY | 2018-08-22 14:15 | XMS REPORT ---
[...] Medications Results No Known Results Summary Purpose [facility] Submission
--- OUTSIDE RECORDS SUMMARY | 2018-08-22 14:15 | XMS REPORT ---
[...] Status Dosage System Date Date ProAir HFA [facility] 46858830950 108 (90 Base) Jul 26, Active 2 puffs as MCG/ACT 2018 needed Inhalation every 6 hrs Keppra ND 50866080147 500 MG Orally Aug 17, Active 2 tablets every 12 hrs 2018 HumuLIN 70/30 ND 67472999672 (70-30) 100 Jul 26, Active 10 units KwikPen UNIT/ML 2016 Subcutaneous bid Flonase ND 90890967488 50 MCG/ACT Jul 26, Active 2 spray in Nasally Once a 2017 each day nostril Bentyl ND 81642651881 20 MG Orally November 21, Active 1 tablet Four times a 2018 day Gabapentin ND 76208016786 300 MG Orally Jul 26, Active 2 capsule Three times a 2018 before day bedtime Zestoretic ND 68187835101 20-25 MG Orally Jul 26, Active 1 tablet Once a day 2016 Promethazine HCl ND 03104185572 50 MG Orally November 21, Active 1 tablet every 6 hrs 2016 as needed Tylenol # 3 NDC 0 300/30mg PO November 21, Active 1-2 tabs every 6 hrs. 2018 Results Name Result Date Reference Range Unit Abnormality Flag URINALYSIS AUTO W/O SCOPE (51857) ----NIT N 20171113 ----URO 0.2 20171113 ----PROTEIN 1+ 20171113 ----pH 5.5 20171113 ----BLO N 20171113 ----GLUCOSE N 20171113 ----ALBERTO N 20171113 ----BILIRUBIN 1+ 20171113 ----KETONES N 20171113 ----SPECIFIC GRAVITY >=1.030 20171113 Summary Purpose eClinicalWorks Submission
--- OUTSIDE RECORDS SUMMARY | 2018-08-22 14:16 | XMS REPORT ---
[...] Date Date Flonase [facility] 96012767237 50 MCG/ACT Jul 26, Active 2 spray in Nasally Once a 2017 each day nostril ProAir HFA [facility] 77143578409 108 (90 Base) Jul 26, Active 2 puffs as MCG/ACT 2018 needed Inhalation every 6 hrs Tylenol # 3 NDC 0 300/30mg PO November 21, Active 1-2 tabs every 6 hrs. 2018 Levaquin ND 77690567761 500 MG Orally Active 1 tablet Once a day Gabapentin ND 39333895999 600 MG Orally Jul 26, Active 1 capsule Three times a 2018 day Zestoretic ND 21135675692 20-25 MG Orally Jul 26, Active 1 tablet Once a day 2016 Keppra ND 86965537191 500 MG Orally Active take two Twice a day -2 tablet(s) by mouth twice a day. Tramadol HCl ND 01081822792 50 MG Orally Active 1 tablet every 6 hrs as needed Promethazine HCl ND 81888584418 50 MG Orally November 21, Active 1 tablet every 6 hrs 2016 as needed Bentyl ND 73868852824 20 MG Orally November 21, Active 1 tablet Four times a 2018 day HumuLIN 70/30 ND 33018646159 (70-30) 100 Jul 26, Active 10 units KwikPen UNIT/ML 2016 Subcutaneous bid Results No Known Results Summary Purpose eClinicalWorks Submission
--- OUTSIDE RECORDS SUMMARY | 2018-08-22 14:16 | XMS REPORT ---
[...] Status Dosage System Date Date Bentyl ND 73964078834 20 MG Orally November 21, Active 1 tablet Four times a 2018 day Tylenol # 3 NDC 0 300/30mg PO November 21, Active 1-2 tabs every 6 hrs. 2018 Flonase ND 84059536452 50 MCG/ACT Jul 26, Active 2 spray in Nasally Once a 2018 each day nostril Promethazine HCl ND 07192985022 50 MG Orally November 21, Active 1 tablet every 6 hrs 2016 as needed Gabapentin ND 48335283875 600 MG Orally Jul 26, Active 1 capsule Three times a 2018 day ProAir HFA ND 14841687683 108 (90 Base) Jul 26, Active 2 puffs as MCG/ACT 2018 needed Inhalation every 6 hrs Keppra ND 48038539607 500 MG Orally Active take two Twice a day -2 tablet(s) by mouth twice a day. Zestoretic ND 51036536420 20-25 MG Orally Jul 26, Active 1 tablet Once a day 2015 HumuLIN 70/30 ND 71389965933 (70-30) 100 Jul 26, Active 10 units KwikPen UNIT/ML 2016 Subcutaneous bid Results Name Result Date Reference Range Unit Abnormality Flag URINALYSIS AUTO W/O SCOPE (21258) ----NIT N [id number] ----URO 1.0 20180219 ----PROTEIN TR 20180219 ----pH 5.5 20180219 ----BLO N 20180219 ----GLUCOSE N 20180219 ----ALBERTO N 20180219 ----BILIRUBIN N 20180219 ----KETONES N 20180219 ----SPECIFIC GRAVITY 1.025 20180219 Summary Purpose eClinicalWorks Submission
--- OUTSIDE RECORDS SUMMARY | 2018-08-22 14:16 | XMS REPORT ---
[...] Status Dosage System Date Date HumuLIN 70/30 [facility] 55176232062 (70-30) 100 Jul 26, Active 10 units KwikPen UNIT/ML 2016 Subcutaneous bid ProAir HFA [facility] 69085943855 108 (90 Base) Jul 26, Active 2 puffs as MCG/ACT 2018 needed Inhalation every 6 hrs Keppra [facility] 04854437803 500 MG Orally Active take two Twice a day -2 tablet(s) by mouth twice a day. Gabapentin ND 15742585113 600 MG Orally Jul 26, Active 1 capsule Three times a 2018 day Zestoretic ND 57789626200 20-25 MG Orally Jul 26, Active 1 tablet Once a day 2015 Bentyl ND 81771682747 20 MG Orally November 21, Active 1 tablet Four times a 2018 day Tylenol # 3 NDC 0 300/30mg PO November 21, Active 1-2 tabs every 6 hrs. 2018 Promethazine HCl ND 19543024693 50 MG Orally November 21, Active 1 tablet every 6 hrs 2016 as needed Flonase NDC 32153557226 50 MCG/ACT Jul 26, Active 2 spray in Nasally Once a 2018 each day nostril Results No Known Results Summary Purpose eClinicalWorks Submission
--- NOTE | 2018-08-22 15:42 | RAD REPORT ---
EXAM DESCRIPTION: RAD - Chest Pa And Lat (2 Views) - 08/22/2018 3:19 pm CLINICAL HISTORY: COUGH Chest pain. COMPARISON: Chest Pa And Lat (2 Views) dated 08/20/2018; Chest Pa And Lat (2 Views) dated 05/14/2018; Chest Single View dated 09/28/2017; Chest Single View dated 02/20/2017 FINDINGS: The lungs are clear. The heart is normal in size. No displaced fractures. IMPRESSION: No acute or concerning finding suspected.
[2018-08-22] MEDS ORDERED: METHYLPREDNISOLONE 125 MG INJ ONE (15:58)
[2018-08-22] MEDS ORDERED: IPRATROPIUM BROM 0.5MG/2.5ML ONE (15:58)
[2018-08-22] MEDS ORDERED: NA CHLORIDE 0.9% 1,000 ML ONE (15:59)
[2018-08-22] MEDS ORDERED: LEVALBUTEROL 1.25 MG/3 ML NEB ONE (15:59)
--- NOTE | 2018-08-22 16:18 | RAD REPORT ---
EXAM DESCRIPTION: CT - Thorax Wo Con CLINICAL HISTORY: Chest pain PAIN COMPARISON: THORAX WO CONTRAST dated 04/07/2015; Chest Pa And Lat (2 Views) dated 08/22/2018 FINDINGS: The lungs are clear. No pleural thickening or pleural effusion. No pneumothorax. A few mildly prominent mediastinal lymph nodes are present, however sub centimeter in size. No pathol ogic intrathoracic adenopathy seen. No concerning bony finding. No gross upper abdominal finding. All CT scans are performed using dose optimization technique as appropriate and may include automated exposure control or mA/KV adjustment according to patient size. IMPRESSION: No acute intrathoracic abnormality.
[2018-08-22 16:32] LABS: Absolute Lymphocytes (CBC) 1.4 K/uL (0.7-4.9); Absolute Monocytes 0.5 K/uL (0.1-1.3); Absolute Neutrophil 2.8 K/uL (1.8-8.0); Basophils % 0.8 % (0-1.3); Eosinophils % 7.4 % (0-4.4); Hematocrit 42.5 % (36.0-45.0); Lymphocytes % 27.7 % (15.3-44.8); MPV 7.9 fL (7.6-11.3); Monocytes % 10.3 % (3.3-12.3); RBC Red Blood Cell Count 4.78 M/uL (3.86-4.86)
[2018-08-22 16:41] LABS: Protime INR 1.03
[2018-08-22 16:49] LABS: ALT/SGPT 35 U/L (12-78); AST/SGOT 22 U/L (15-37); Albumin 3.9 g/dL (3.4-5.0); Alkaline Phosphatase 81 U/L (45-117); BUN Blood Urea Nitrogen 7 mg/dL (7-18); Bicarbonate 28 mmol/L (21-32); Bilirubin Direct < 0.1 mg/dL (0-0.2); Bilirubin Total 0.3 mg/dL (0.2-1.0); Glucose Level 89 mg/dL (74-106); Lipase 82 U/L (73-393); Magnesium 2.2 mg/dL (1.8-2.4); NT PRO-BNP 76 pg/mL (<125); Potassium 3.8 mmol/L (3.5-5.1); Protein, Total 8.4 g/dL (6.4-8.2); Sodium Level 141 mmol/L (136-145); Troponin (Emerg Dept Use Only) < 0.02 ng/mL (0.0-0.045)
--- NOTE | 2018-08-22 17:00 | ER ---
Nurse's Notes [facility] Name: Britt Bower Age: 43 yrs Sex: Female : 1975 Arrival Date: 08/22/2018 Time: 14:16 Bed 28 Private MD: Diagnosis: Cough;Dyspnea;Chest pain, unspecified-wall Presentation: 08/22 14:40 Presenting complaint: Patient states: "I've been sick with a cough and taking Z-pack aa5 but it's not getting better". Pt reports being seen here. Pt c/o posterior lower rib cage pain. 14:40 Method Of Arrival: Ambulatory aa5 14:40 Transition of care: patient was not received from another setting of care. Onset of aa5 symptoms was 2018. 14:40 Risk Assessment: Do you want to hurt yourself or someone else? Patient reports no aa5 desire to harm self or others. Initial Sepsis Screen: Does the patient meet any 2 criteria? No. Patient's initial sepsis screen is negative. Does the patient have a suspected source of infection? No. Patient's initial sepsis screen is negative. Care prior to arrival: None. 14:40 Acuity: DUKE 3 aa5 Triage Assessment: 15:09 General: Appears in no apparent distress. comfortable. Respiratory: the patient has mg2 mild shortness of breath. Respiratory: Reports cough that is. 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 aa5 Historical: - Allergies: 14:42 Amoxicillin; aa5 14:42 Aspirin; aa5 14:42 Coconut; aa5 14:42 diazepam; aa5 14:42 Iodine; aa5 14:42 Morphine; aa5 14:42 Ondansetron HCl; aa5 14:42 PENICILLINS; aa5 14:42 Piperacillin Sodium; aa5 14:42 tazobactam sodium; aa5 14:42 Zofran; aa5 - Home Meds: 15:10 albuterol sulfate 90 mcg/actuation Inhl HFAA [Active]; flonace 2 puffs/day daily mg2 [Active]; gabapentin 600 mg Oral tab 1 tab 3 times per day for Neuropathic Pain [Active]; Humulin 70/30 100 unit/mL (70-30) Sub-Q tab 5 units twice a day for Type 2 Diabetes Mellitus [Active]; levetiracetam 500 mg Oral tab 1 tab 4 times a day for Tonic-Clonic Epilepsy Treatment Adjunct [Active]; lisinopril-hydrochlorothiazide 20-25 mg Oral tab 1 tab once daily for Hypertension [Active]; - PMHx: 14:42 Asthma; Diabetes - IDDM; epilepsy; history of stroke; Hypertension; neuropathy; aa5 - Immunization history:: Flu vaccine is up to date. - Social history:: Smoking status: Patient/guardian denies using tobacco. - Ebola Screening: : No symptoms or risks identified at this time. - Family history:: not pertinent. Screenin:06 Abuse screen: Denies threats or abuse. Denies injuries from another. Nutritional mg2 screening: No deficits noted. Tuberculosis screening: No symptoms or risk factors identified. Fall Risk None identified. Assessment: 15:06 General: Appears in no apparent distress. comfortable, Behavior is calm, cooperative. mg2 Pain: Complains of pain in lower rib cage Pain does not radiate. Pain currently is 3 out of 10 on a pain scale. Quality of pain is described as aching, Pain began gradually, Is intermittent. Neuro: Level of Consciousness is awake, alert, obeys commands, Oriented to person, place, time, situation. Cardiovascular: Capillary refill < 3 seconds Patient's skin is warm and dry. Rhythm is. Respiratory: Reports cough that is productive, pain with cough pain with respiration Airway is patent Respiratory effort is even, unlabored, Breath sounds are clear bilaterally. in right upper lobe, left upper lobe, left posterior upper lobe and right posterior upper lobe. GI: No signs and/or symptoms were reported involving the gastrointestinal system. : No signs and/or symptoms were reported regarding the genitourinary system. EENT: Reports pain in both ears. Derm: Skin is intact, is healthy with good turgor, Skin is pink, warm \\T\\ dry. normal. Musculoskeletal: Circulation, motion, and sensation intact. Capillary refill < 3 seconds. 16:01 Reassessment: patient sent to ct scan. mg2 16:49 Reassessment: Patient appears in no apparent distress at this time. Patient and/or mg2 family updated on plan of care and expected duration. Pain level reassessed. Patient is alert, oriented x 3, equal unlabored respirations, skin warm/dry/pink. Vital Signs: 14:42 BP 132 / 97; Pulse 70; Resp 18 S; Temp 97.6(TE); Pulse Ox 98% on R/A; Weight 92.53 kg aa5 (R); Height 5 ft. 0 in. (152.40 cm) (R); Pain 9/10; 16:49 BP 129 / 77; Pulse 78; Resp 18; Pulse Ox 100% on R/A; Pain 4/10; mg2 17:14 BP 116 / 72; Pulse 70; Resp 18; Pulse Ox 100% on R/A; Pain 0/10; mg2 14:42 Body Mass Index 39.84 (92.53 kg, 152.40 cm) aa5 ED Course: 14:16 Patient arrived in ED. rg4 14:40 Arm band placed on. aa5 14:41 Triage completed. aa5 15:01 Dontae López MD is Attending Physician. abebe 15:03 Rafi oConey, MERRICK is Primary Nurse. mg2 15:06 No provider procedures requiring assistance completed. mg2 15:11 Patient has correct armband on for positive identification. mg2 15:16 Chest Pa And Lat (2 Views) XRAY In Process Unspecified. EDMS 16:00 CT Chest Wo Con In Process Unspecified. EDMS 16:48 Inserted saline lock: 22 gauge in left hand, using aseptic technique. Blood collected. mg2 17:16 IV discontinued, intact, bleeding controlled, No redness/swelling at site. Pressure mg2 dressing applied. Administered Medications: 16:23 Drug: AtroVENT Aerosol 0.5 mg Route: Inhalation; mg2 16:50 Follow up: Response: No adverse reaction; Marked relief of symptoms mg2 16:24 Drug: NS 0.9% 1000 ml Route: IV; Rate: 1 bolus; Site: left hand; mg2 17:14 Follow up: Response: No adverse reaction; IV Status: Completed infusion mg2 16:24 Drug: SOLU-Medrol 125 mg Route: IVP; Site: left hand; mg2 16:50 Follow up: Response: No adverse reaction; Marked relief of symptoms mg2 16:24 Drug: Xopenex 2.5 mg Route: Inhalation; mg2 16:50 Follow up: Response: No adverse reaction; Marked relief of symptoms mg2 Outcome: 16:59 Discharge ordered by . abebe 17:16 Discharged to home ambulatory, with family. mg2 17:16 Condition: stable 17:16 Discharge instructions given to patient, family, Instructed on discharge instructions, follow up and referral plans. medication usage, Demonstrated understanding of instructions, follow-up care, medications, Prescriptions given X 2. 17:17 Patient left the ED. mg2 Signatures: Dispatcher [employer] Dontae Tenorio MD MD cha Calderon, Audri, RN RN aa5 Janice Jin4 Rafi Cooney RN RN mg2
--- NOTE | 2018-08-22 17:00 | EDPHYS ---
Physician Documentation [facility] Name: Britt Bower Age: 43 yrs Sex: Female : 1975 Arrival Date: 08/22/2018 Time: 14:16 Bed 28 Private MD: ED Physician Dontae López HPI: 08/22 15:30 This 43 yrs old Female presents to ER via Ambulatory with complaints of Cough.abebe 15:30 The patient or guardian reports cough, that is constant, difficulty breathing. Onset: abebe The symptoms/episode began/occurred 5 day(s) ago. Severity of symptoms: At their worst the symptoms were mild, in the emergency department the symptoms are unchanged. Modifying factors: The symptoms are alleviated by nothing, the symptoms are aggravated by nothing. Associated signs and symptoms: Pertinent positives: chest pain. The patient has experienced similar episodes in the past, a few times. 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 aa5 Historical: - Allergies: 14:42 Amoxicillin; aa5 14:42 Aspirin; aa5 14:42 Coconut; aa5 14:42 diazepam; aa5 14:42 Iodine; aa5 14:42 Morphine; aa5 14:42 Ondansetron HCl; aa5 14:42 PENICILLINS; aa5 14:42 Piperacillin Sodium; aa5 14:42 tazobactam sodium; aa5 14:42 Zofran; aa5 - Home Meds: 15:10 albuterol sulfate 90 mcg/actuation Inhl HFAA [Active]; flonace 2 puffs/day daily mg2 [Active]; gabapentin 600 mg Oral tab 1 tab 3 times per day for Neuropathic Pain [Active]; Humulin 70/30 100 unit/mL (70-30) Sub-Q tab 5 units twice a day for Type 2 Diabetes Mellitus [Active]; levetiracetam 500 mg Oral tab 1 tab 4 times a day for Tonic-Clonic Epilepsy Treatment Adjunct [Active]; lisinopril-hydrochlorothiazide 20-25 mg Oral tab 1 tab once daily for Hypertension [Active]; - PMHx: 14:42 Asthma; Diabetes - IDDM; epilepsy; history of stroke; Hypertension; neuropathy; aa5 - Immunization history:: Flu vaccine is up to date. - Social history:: Smoking status: Patient/guardian denies using tobacco. - Ebola Screening: : No symptoms or risks identified at this time. - Family history:: not pertinent. ROS: 15:30 Constitutional: Negative for fever, chills, and weight loss, Eyes: Negative for injury, abebe pain, redness, and discharge, ENT: Negative for injury, pain, and discharge, Neck: Negative for injury, pain, and swelling, Cardiovascular: Negative for chest pain, palpitations, and edema, Abdomen/GI: Negative for abdominal pain, nausea, vomiting, diarrhea, and constipation, Back: Negative for injury and pain, : Negative for injury, bleeding, discharge, and swelling, MS/Extremity: Negative for injury and deformity, Skin: Negative for injury, rash, and discoloration, Neuro: Negative for headache, weakness, numbness, tingling, and seizure, Psych: Negative for depression, anxiety, suicide ideation, homicidal ideation, and hallucinations, Allergy/Immunology: Negative for hives, rash, and allergies, Endocrine: Negative for neck swelling, polydipsia, polyuria, polyphagia, and marked weight changes, Hematologic/Lymphatic: Negative for swollen nodes, abnormal bleeding, and unusual bruising. 15:30 Respiratory: Positive for cough, with no reported sputum. Exam: 15:30 Constitutional: This is a well developed, well nourished patient who is awake, alert, abebe and in no acute distress. Head/Face: Normocephalic, atraumatic. Eyes: Pupils equal round and reactive to light, extra-ocular motions intact. Lids and lashes normal. Conjunctiva and sclera are non-icteric and not injected. Cornea within normal limits. Periorbital areas with no swelling, redness, or edema. ENT: Nares patent. No nasal discharge, no septal abnormalities noted. Tympanic membranes are normal and external auditory canals are clear. Oropharynx with no redness, swelling, or masses, exudates, or evidence of obstruction, uvula midline. Mucous membranes moist. Neck: Trachea midline, no thyromegaly or masses palpated, and no cervical lymphadenopathy. Supple, full range of motion without nuchal rigidity, or vertebral point tenderness. No Meningismus. Chest/axilla: Normal chest wall appearance and motion. Nontender with no deformity. No lesions are appreciated. Cardiovascular: Regular rate and rhythm with a normal S1 and S2. No gallops, murmurs, or rubs. Normal PMI, no JVD. No pulse deficits. Respiratory: Lungs have equal breath sounds bilaterally, clear to auscultation and percussion. No rales, rhonchi or wheezes noted. No increased work of breathing, no retractions or nasal flaring. Abdomen/GI: Soft, non-tender, with normal bowel sounds. No distension or tympany. No guarding or rebound. No evidence of tenderness throughout. Back: No spinal tenderness. No costovertebral tenderness. Full range of motion. Skin: Warm, dry with normal turgor. Normal color with no rashes, no lesions, and no evidence of cellulitis. MS/ Extremity: Pulses equal, no cyanosis. Neurovascular intact. Full, normal range of motion. Neuro: Awake and alert, GCS 15, oriented to person, place, time, and situation. Cranial nerves II-XII grossly intact. Motor strength 5/5 in all extremities. Sensory grossly intact. Cerebellar exam normal. Normal gait. 15:30 Musculoskeletal/extremity: ROM: no acute changes, intact in all extremities, Circulation is intact in all extremities. Sensation intact. Compartment Syndrome exam of affected extremity: is normal. Joints: All joints appear normal with full range of motion. DVT Exam: No signs of deep vein thrombosis. no pain, no swelling, no tenderness, negative Homans' sign noted on exam, no appreciated bluish discoloration, no erythema, no increased warmth. Vital Signs: 14:42 BP 132 / 97; Pulse 70; Resp 18 S; Temp 97.6(TE); Pulse Ox 98% on R/A; Weight 92.53 kg aa5 (R); Height 5 ft. 0 in. (152.40 cm) (R); Pain 9/10; 16:49 BP 129 / 77; Pulse 78; Resp 18; Pulse Ox 100% on R/A; Pain 4/10; mg2 17:14 BP 116 / 72; Pulse 70; Resp 18; Pulse Ox 100% on R/A; Pain 0/10; mg2 14:42 Body Mass Index 39.84 (92.53 kg, 152.40 cm) aa5 MDM: 15:01 Patient medically screened. [facility] 16:58 Data reviewed: vital signs, nurses notes, lab test result(s), EKG, radiologic studies, [facility] CT scan, plain films. 08/22 15:30 Order name: Basic Metabolic Panel; Complete Time: 16:57 [facility] 08/22 15:30 Order name: CBC with Diff; Complete Time: 16:36 [facility] 08/22 15:30 Order name: LFT's; Complete Time: 16:57 [facility] 08/22 15:30 Order name: Magnesium; Complete Time: 16:57 [facility] 08/22 15:30 Order name: NT PRO-BNP; Complete Time: 16:57 [facility] 08/22 15:30 Order name: PT-INR; Complete Time: 16:49 [facility] 08/22 14:43 Order name: Chest Pa And Lat (2 Views) XRAY; Complete Time: 16:23 [facility] 08/22 15:30 Order name: Troponin (emerg Dept Use Only); Complete Time: 16:57 [facility] 08/22 15:30 Order name: Lipase; Complete Time: 16:57 [facility] 08/22 15:30 Order name: D-Dimer; Complete Time: 16:49 [facility] 08/22 15:30 Order name: Blood Culture Adult (2) [facility] 08/22 15:36 Order name: CT Chest Wo Con; Complete Time: 16:23 [facility] 08/22 16:10 Order name: Urine Dipstick--Ancillary (enter results) eb 08/22 16:10 Order name: Urine --Ancillary (enter results) eb 08/22 14:43 Order name: Urine Dipstick-Ancillary (obtain specimen); Complete Time: 16:25 1 08/22 14:43 Order name: Urine Test (obtain specimen); Complete Time: 16:25 [facility] 08/22 15:30 Order name: EKG; Complete Time: 15:31 [facility] 08/22 15:30 Order name: Cardiac monitoring; Complete Time: 16:24 [facility] 08/22 15:30 Order name: EKG - Nurse/Tech; Complete Time: 16:51 [facility] 08/22 15:30 Order name: IV Saline Lock; Complete Time: 16:52 [facility] 08/22 15:30 Order name: Labs collected and sent; Complete Time: 16:24 [facility] 08/22 15:30 Order name: O2 Per Protocol; Complete Time: 16:25 [facility] 08/22 15:30 Order name: O2 Sat Monitoring; Complete Time: 16:24 abebe Administered Medications: 16:23 Drug: AtroVENT Aerosol 0.5 mg Route: Inhalation; mg2 16:50 Follow up: Response: No adverse reaction; Marked relief of symptoms mg2 16:24 Drug: NS 0.9% 1000 ml Route: IV; Rate: 1 bolus; Site: left hand; mg2 17:14 Follow up: Response: No adverse reaction; IV Status: Completed infusion mg2 16:24 Drug: SOLU-Medrol 125 mg Route: IVP; Site: left hand; mg2 16:50 Follow up: Response: No adverse reaction; Marked relief of symptoms mg2 16:24 Drug: Xopenex 2.5 mg Route: Inhalation; mg2 16:50 Follow up: Response: No adverse reaction; Marked relief of symptoms mg2 Disposition: 08/22/18 16:59 Discharged to Home. Impression: Cough, Dyspnea, Chest pain, unspecified - wall. - Condition is Stable. - Discharge Instructions: Shortness of Breath, Cool Mist Vaporizer, Shortness of Breath, Fudi-ak-Avyr, Cough, Adult, Rlfq-vi-Eynb, Cough, Adult. - Prescriptions for Medrol (Jori) 4 mg Oral Tablets, Dose Pack - take 1 tablet by ORAL route as directed - follow package instructions; 1 packet. Albuterol Sulfate 90 mcg/actuation - inhale 1-2 puff by INHALATION route every 4-6 hours; 1 Inhaler. - Medication Reconciliation Form, Thank You Letter, Antibiotic Education, Prescription Opioid Use, Work release form form. - Follow up: Private Physician; When: 2 - 3 days; Reason: Recheck today's complaints, Continuance of care, Re-evaluation by your physician. - Problem is new. - Symptoms have improved. Signatures: Dispatcher [employer] EDNE Dontae López MD MD cha Calderon, Audri, RN RN aa5 Whitney Mendenhall NP TEACHING FELLOW rh1 Rafi Cooney RN RN mg2 Corrections: (The following items were deleted from the chart) 17:17 16:59 08/22/2018 16:59 Discharged to Home. Impression: Cough; Dyspnea; Chest pain, mg2 unspecified - wall. Condition is Stable. Discharge Instructions: Shortness of Breath, Cool Mist Vaporizer, Shortness of Breath, Druk-ue-Oarx, Cough, Adult, Vosx-gl-Reba, Cough, Adult. Prescriptions for Medrol (Jori) 4 mg Oral Tablets, Dose Pack - take 1 tablet by ORAL route as directed - follow package instructions; 1 packet, Albuterol Sulfate 90 mcg/actuation - inhale 1-2 puff by INHALATION route every 4-6 hours; 1 Inhaler. and Forms are Medication Reconciliation Form, Thank You Letter, Antibiotic Education, Prescription Opioid Use. Follow up: Private Physician; When: 2 - 3 days; Reason: Recheck today's complaints, Continuance of care, Re-evaluation by your physician. Problem is new. Symptoms have improved. abebe
[2018-08-22 18:37] VITALS: TEMP 97.6
[2018-08-22 18:39] VITALS: O2SAT 100
[2018-08-22 18:40] VITALS: BP 116/72
[2018-08-22 20:35] LABS: Urine Blood NEGATIVE (NEG); Urine Glucose NEGATIVE (NEG); Urine Protein NEGATIVE (NEG); Urine Specific Gravity 1.015 (1.005-1.030); Urine pH 5.5 (5.0-7.0)
--- NOTE | 2018-08-23 07:23 | EKG ---
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
== END 2018-08-22 17:17 | disposition home or self-care (01) ==
LOC: ER 14:14
DX: R06.00 Dyspnea, unspecified (principal); R07.89 Other chest pain; I10 Essential (primary) hypertension; J45.909 Unspecified asthma, uncomplicated; E11.9 Type 2 diabetes mellitus without complications; G40.909 Epilepsy, unspecified, not intractable, without status epilepticus; Z79.4 Long term (current) use of insulin; Z88.0 Allergy status to penicillin; Z88.5 Allergy status to narcotic agent; Z88.6 Allergy status to analgesic agent; Z88.8 Allergy status to other drugs, medicaments and biological substances; Z91.018 Allergy to other foods
CPT/HCPCS: 36415; 71046; 71250; 80048; 80076; 81003; 81025; 83690; 83735; 83880; 84484; 85025; 85379; 85610; 87040; 93005; 96361; 96374; 99284; J2930; J7030

== ENCOUNTER 2018-09-06 01:18 | Emergency (ER) | payer SELFPAY ==
[2012-04-03 05:44] VITALS: BP 121/78
--- OUTSIDE RECORDS SUMMARY | 2018-09-06 01:20 | XMS REPORT ---
[...] Status Dosage System Date Date ProAir HFA [facility] [id number] 108 (90 Base) Jul 26, Active 2 puffs as MCG/ACT 2018 needed Inhalation every 6 hrs Keppra ND 48423138351 500 MG Orally Aug 17, Active 2 tablets every 12 hrs 2018 HumuLIN 70/30 ND 20420434518 (70-30) 100 Jul 26, Active 10 units KwikPen UNIT/ML 2016 Subcutaneous bid Flonase ND 89099522934 50 MCG/ACT Jul 26, Active 2 spray in Nasally Once a 2017 each day nostril Bentyl ND 79463795671 20 MG Orally November 21, Active 1 tablet Four times a 2018 day Gabapentin ND 94670092507 300 MG Orally Jul 26, Active 2 capsule Three times a 2018 before day bedtime Zestoretic ND 21500357037 20-25 MG Orally Jul 26, Active 1 tablet Once a day 2016 Promethazine HCl ND 28745909164 50 MG Orally November 21, Active 1 tablet every 6 hrs 2016 as needed Tylenol # 3 NDC 0 300/30mg PO November 21, Active 1-2 tabs every 6 hrs. 2018 Results Name Result Date Reference Range Unit Abnormality Flag URINALYSIS AUTO W/O SCOPE (36950) ----NIT N 20171113 ----URO 0.2 20171113 ----PROTEIN 1+ 20171113 ----pH 5.5 20171113 ----BLO N 20171113 ----GLUCOSE N 20171113 ----ALBERTO N 20171113 ----BILIRUBIN 1+ 20171113 ----KETONES N 20171113 ----SPECIFIC GRAVITY >=1.030 20171113 Summary Purpose eClinicalWorks Submission
--- OUTSIDE RECORDS SUMMARY | 2018-09-06 01:20 | XMS REPORT ---
[...] Status Dosage System Date Date Bentyl ND 85145488959 20 MG Orally November 21, Active 1 tablet Four times a 2018 day Tylenol # 3 NDC 0 300/30mg PO November 21, Active 1-2 tabs every 6 hrs. 2018 Flonase ND 94813836139 50 MCG/ACT Jul 26, Active 2 spray in Nasally Once a 2018 each day nostril Promethazine HCl ND 97619477425 50 MG Orally November 21, Active 1 tablet every 6 hrs 2016 as needed Gabapentin ND 06349936825 600 MG Orally Jul 26, Active 1 capsule Three times a 2018 day ProAir HFA ND 24637142048 108 (90 Base) Jul 26, Active 2 puffs as MCG/ACT 2018 needed Inhalation every 6 hrs Keppra ND 31565646247 500 MG Orally Active take two Twice a day -2 tablet(s) by mouth twice a day. Zestoretic ND 93527405109 20-25 MG Orally Jul 26, Active 1 tablet Once a day 2015 HumuLIN 70/30 ND 83636988007 (70-30) 100 Jul 26, Active 10 units KwikPen UNIT/ML 2016 Subcutaneous bid Results Name Result Date Reference Range Unit Abnormality Flag URINALYSIS AUTO W/O SCOPE (56546) ----NIT N [id number] ----URO 1.0 20180219 ----PROTEIN TR [id number] ----pH 5.5 20180219 ----BLO N [id number] ----GLUCOSE N [id number] ----ALBERTO N [id number] ----BILIRUBIN N [id number] ----KETONES N [id number] ----SPECIFIC GRAVITY 1.025 [id number] Summary Purpose eClinicalWorks Submission
--- OUTSIDE RECORDS SUMMARY | 2018-09-06 01:20 | XMS REPORT ---
[...] Status Dosage System Date Date HumuLIN 70/30 [facility] 61043042536 (70-30) 100 Jul 26, Active 10 units KwikPen UNIT/ML 2016 Subcutaneous bid ProAir HFA [facility] 93306266576 108 (90 Base) Jul 26, Active 2 puffs as MCG/ACT 2018 needed Inhalation every 6 hrs Keppra [facility] 29353879560 500 MG Orally Active take two Twice a day -2 tablet(s) by mouth twice a day. Gabapentin ND 54936654813 600 MG Orally Jul 26, Active 1 capsule Three times a 2018 day Zestoretic ND 05736018825 20-25 MG Orally Jul 26, Active 1 tablet Once a day 2015 Bentyl ND 69493731587 20 MG Orally November 21, Active 1 tablet Four times a 2018 day Tylenol # 3 NDC 0 300/30mg PO November 21, Active 1-2 tabs every 6 hrs. 2018 Promethazine HCl ND 07134957598 50 MG Orally November 21, Active 1 tablet every 6 hrs 2016 as needed Flonase NDC 93279172923 50 MCG/ACT Jul 26, Active 2 spray in Nasally Once a 2018 each day nostril Results No Known Results Summary Purpose eClinicalWorks Submission
--- OUTSIDE RECORDS SUMMARY | 2018-09-06 01:20 | XMS REPORT ---
[...] Medications Results No Known Results Summary Purpose [employer] Submission
--- OUTSIDE RECORDS SUMMARY | 2018-09-06 01:21 | XMS REPORT ---
[...] End Status Dosage System Date Date Flonase [facility] 69873724412 50 MCG/ACT Jul 26, Active 2 spray in Nasally Once a 2017 each day nostril ProAir HFA [facility] 75741624211 108 (90 Base) Jul 26, Active 2 puffs as MCG/ACT 2018 needed Inhalation every 6 hrs Tylenol # 3 NDC 0 300/30mg PO November 21, Active 1-2 tabs every 6 hrs. 2018 Levaquin ND 91906470111 500 MG Orally Active 1 tablet Once a day Gabapentin ND 06465188555 600 MG Orally Jul 26, Active 1 capsule Three times a 2018 day Zestoretic ND 91760388066 20-25 MG Orally Jul 26, Active 1 tablet Once a day 2016 Keppra ND 66858838749 500 MG Orally Active take two Twice a day -2 tablet(s) by mouth twice a day. Tramadol HCl ND 51072936457 50 MG Orally Active 1 tablet every 6 hrs as needed Promethazine HCl ND 25717589653 50 MG Orally November 21, Active 1 tablet every 6 hrs 2016 as needed Bentyl ND 36688805843 20 MG Orally November 21, Active 1 tablet Four times a 2018 day HumuLIN 70/30 ND 25622223460 (70-30) 100 Jul 26, Active 10 units KwikPen UNIT/ML 2016 Subcutaneous bid Results No Known Results Summary Purpose eClinicalWorks Submission
--- NOTE | 2018-09-06 02:31 | EDPHYS ---
Physician Documentation [facility] Name: Britt Bower Age: 43 yrs Sex: Female : 1975 Arrival Date: 09/06/2018 Time: 01:19 Bed 19 Private MD: Lubna Hunt ED Physician Sudhir Lee HPI: 09/06 02:24 This 43 yrs old Female presents to ER via Ambulatory with complaints of pkl Probable Seizure. 02:24 The patient presents after having a single isolated seizure, that lasted 15 second(s). pkl Character of seizure(s): Loss of consciousness: the patient did not lose consciousness, Motor activity: unable to talk. Seizure onset: just prior to arrival. 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 LMP N/A - Hysterectomy aa1 Historical: - Allergies: 01:47 Amoxicillin; aa1 01:47 Aspirin; aa1 01:47 Coconut; aa1 01:47 diazepam; aa1 01:47 Iodine; aa1 01:47 Morphine; aa1 01:47 Ondansetron HCl; aa1 01:47 PENICILLINS; aa1 01:47 Piperacillin Sodium; aa1 01:47 tazobactam sodium; aa1 01:47 Zofran; aa1 - Home Meds: 01:47 albuterol sulfate 90 mcg/actuation Inhl HFAA [Active]; flonace 2 puffs/day daily aa1 [Active]; gabapentin 600 mg Oral tab 1 tab 3 times per day for Neuropathic Pain [Active]; Humulin 70/30 100 unit/mL (70-30) Sub-Q tab 5 units twice a day for Type 2 Diabetes Mellitus [Active]; levetiracetam 500 mg Oral tab 2 tabs 2 times per day for Tonic-Clonic Epilepsy Treatment Adjunct [Active]; lisinopril-hydrochlorothiazide 20-25 mg Oral tab 1 tab once daily for Hypertension [Active]; - PMHx: 01:47 Asthma; Diabetes - IDDM; epilepsy; history of stroke; Hypertension; neuropathy; aa1 - PSHx: 01:47 ; Hysterectomy; Cholecystectomy; aa1 - Immunization history:: Pneumococcal vaccine is up to date, Flu vaccine is up to date. - Social history:: Smoking status: Patient/guardian denies using tobacco. - Ebola Screening: : No symptoms or risks identified at this time. ROS: 02:24 Eyes: Negative for injury, pain, redness, and discharge, ENT: Negative for injury, pkl pain, and discharge, Neck: Negative for injury, pain, and swelling, Cardiovascular: Negative for chest pain, palpitations, and edema, Respiratory: Negative for shortness of breath, cough, wheezing, and pleuritic chest pain, Abdomen/GI: Negative for abdominal pain, nausea, vomiting, diarrhea, and constipation, Back: Negative for injury and pain, : Negative for injury, bleeding, discharge, and swelling, MS/Extremity: Negative for injury and deformity, Skin: Negative for injury, rash, and discoloration. 02:24 Neuro: Positive for speech changes. Exam: 02:24 Head/Face: Normocephalic, atraumatic. Eyes: Pupils equal round and reactive to light, pkl extra-ocular motions intact. Lids and lashes normal. Conjunctiva and sclera are non-icteric and not injected. Cornea within normal limits. Periorbital areas with no swelling, redness, or edema. ENT: Nares patent. No nasal discharge, no septal abnormalities noted. Tympanic membranes are normal and external auditory canals are clear. Oropharynx with no redness, swelling, or masses, exudates, or evidence of obstruction, uvula midline. Mucous membranes moist. Neck: Trachea midline, no thyromegaly or masses palpated, and no cervical lymphadenopathy. Supple, full range of motion without nuchal rigidity, or vertebral point tenderness. No Meningismus. Chest/axilla: Normal chest wall appearance and motion. Nontender with no deformity. No lesions are appreciated. Cardiovascular: Regular rate and rhythm with a normal S1 and S2. No gallops, murmurs, or rubs. Normal PMI, no JVD. No pulse deficits. Respiratory: Lungs have equal breath sounds bilaterally, clear to auscultation and percussion. No rales, rhonchi or wheezes noted. No increased work of breathing, no retractions or nasal flaring. Abdomen/GI: Soft, non-tender, with normal bowel sounds. No distension or tympany. No guarding or rebound. No evidence of tenderness throughout. Back: No spinal tenderness. No costovertebral tenderness. Full range of motion. Skin: Warm, dry with normal turgor. Normal color with no rashes, no lesions, and no evidence of cellulitis. MS/ Extremity: Pulses equal, no cyanosis. Neurovascular intact. Full, normal range of motion. 02:24 Neuro: Orientation: is normal, Mentation: is normal, Cranial nerves: grossly normal, Cerebellar function: normal finger to nose testing, heel to martinez testing is normal, Motor: is normal, Sensation: is normal, Gait: is steady. Vital Signs: 01:47 BP 114 / 75; Pulse 77; Resp 16; Temp 98.69; Pulse Ox 96% on R/A; Weight 88.9 kg; Height aa1 5 ft. 0 in. (152.40 cm); Pain 0/10; 01:47 Body Mass Index 38.28 (88.90 kg, 152.40 cm) aa1 [place] Coma Score: 01:47 Eye Response: spontaneous(4). Verbal Response: oriented(5). Motor Response: obeys aa1 commands(6). Total: 15. MDM: 02:08 Patient medically screened. pkl 02:24 Data reviewed: vital signs, nurses notes. pkl Administered Medications: No medications were administered Disposition: 09/06/18 02:29 Discharged to Home. Impression: Seizure disorder. Transient ischemic attack. - Condition is Stable. - Work release form, Medication Reconciliation Form, Thank You Letter, Antibiotic Education, Prescription Opioid Use form. - Follow up: Rene Cagle MD; When: 1 - 2 days; Reason: Re-evaluation by your physician. - Problem is new. - Symptoms have improved. Signatures: Laurita Miramontes RN RN aa1 Sudhir Lee MD MD pkl Sebastian Negro RN RN jd3 Corrections: (The following items were deleted from the chart) 02:37 02:29 09/06/2018 02:29 Discharged to Home. Impression: Seizure disorder. Transient jd3 ischemic attack. Condition is Stable. Forms are Medication Reconciliation Form, Thank You Letter, Antibiotic Education, Prescription Opioid Use. Follow up: Rene Cagle; When: 1 - 2 days; Reason: Re-evaluation by your physician. Problem is new. Symptoms have improved. pkl
--- NOTE | 2018-09-06 02:31 | ER ---
Nurse's Notes [facility] Name: Britt oBwer Age: 43 yrs Sex: Female : 1975 Arrival Date: 09/06/2018 Time: :19 Bed 19 Private MD: Lubna Hunt Diagnosis: Seizure disorder. Transient ischemic attack Presentation: 09/06 01:42 Presenting complaint: Patient states: she was [place] and thinks she might have aa1 had a seizure. Reports she suddenly turned red and couldn't speak. States she has a hx of seizures and takes keppra and has been taking her medication as prescribed. Transition of care: patient was not received from another setting of care. Onset of symptoms was September 06, 2018. Risk Assessment: Do you want to hurt yourself or someone else? Patient reports no desire to harm self or others. Initial Sepsis Screen: Does the patient meet any 2 criteria? No. Patient's initial sepsis screen is negative. Does the patient have a suspected source of infection? No. Patient's initial sepsis screen is negative. Care prior to arrival: None. 01:42 Method Of Arrival: Ambulatory aa1 01:42 Acuity: [facility] 3 aa1 Triage Assessment: 01:47 General: Appears in no apparent distress. comfortable, Behavior is calm, cooperative, aa1 appropriate for age. 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 LMP N/A - Hysterectomy aa1 Historical: - Allergies: 01:47 Amoxicillin; aa1 01:47 Aspirin; aa1 01:47 Coconut; aa1 01:47 diazepam; aa1 01:47 Iodine; aa1 01:47 Morphine; aa1 01:47 Ondansetron HCl; aa1 01:47 PENICILLINS; aa1 01:47 Piperacillin Sodium; aa1 01:47 tazobactam sodium; aa1 01:47 Zofran; aa1 - Home Meds: 01:47 albuterol sulfate 90 mcg/actuation Inhl HFAA [Active]; flonace 2 puffs/day daily aa1 [Active]; gabapentin 600 mg Oral tab 1 tab 3 times per day for Neuropathic Pain [Active]; Humulin 70/30 100 unit/mL (70-30) Sub-Q tab 5 units twice a day for Type 2 Diabetes Mellitus [Active]; levetiracetam 500 mg Oral tab 2 tabs 2 times per day for Tonic-Clonic Epilepsy Treatment Adjunct [Active]; lisinopril-hydrochlorothiazide 20-25 mg Oral tab 1 tab once daily for Hypertension [Active]; - PMHx: 01:47 Asthma; Diabetes - IDDM; epilepsy; history of stroke; Hypertension; neuropathy; aa1 - PSHx: 01:47 ; Hysterectomy; Cholecystectomy; aa1 - Immunization history:: Pneumococcal vaccine is up to date, Flu vaccine is up to date. - Social history:: Smoking status: Patient/guardian denies using tobacco. - Ebola Screening: : No symptoms or risks identified at this time. Screenin:48 Abuse screen: Denies threats or abuse. Nutritional screening: No deficits noted. jd3 Tuberculosis screening: No symptoms or risk factors identified. Fall Risk Ambulatory Aid- None/Bed Rest/Nurse Assist (0 pts). Gait- Normal/Bed Rest/Wheelchair (0 pts) Mental Status- Oriented to own ability (0 pts). Total Dillon Fall Scale indicates No Risk (0-24 pts). Assessment: 01:46 General: Appears in no apparent distress. uncomfortable, Behavior is cooperative, jd3 appropriate for age, anxious. Pain: Complains of pain in head Quality of pain is described as aching, pressure. Neuro: Level of Consciousness is awake, alert, obeys commands, Oriented to person, place, time, situation, Appropriate for age Moves all extremities. Full function Gait is steady, Speech is normal, Facial symmetry appears normal, Pupils are PERRLA, Intact. Cardiovascular: Capillary refill < 3 seconds Patient's skin is warm and dry. Respiratory: Airway is patent Respiratory effort is even, unlabored, Respiratory pattern is regular, symmetrical, Breath sounds are clear bilaterally. GI: Abdomen is round non-distended, Reports nausea. : No signs and/or symptoms were reported regarding the genitourinary system. EENT: No signs and/or symptoms were reported regarding the EENT system. Derm: Skin is intact, Skin is dry, Skin is normal, Skin temperature is warm. Musculoskeletal: Circulation, motion, and sensation intact. Range of motion: intact in all extremities. 02:37 Reassessment: Patient appears in no apparent distress at this time. Patient and/or jd3 family updated on plan of care and expected duration. Pain level reassessed. Patient is alert, oriented x 3, equal unlabored respirations, skin warm/dry/pink. Vital Signs: 01:47 BP 114 / 75; Pulse 77; Resp 16; Temp 98.69; Pulse Ox 96% on R/A; Weight 88.9 kg; Height aa1 5 ft. 0 in. (152.40 cm); Pain 0/10; 01:47 Body Mass Index 38.28 (88.90 kg, 152.40 cm) aa1 [place] Coma Score: 01:47 Eye Response: spontaneous(4). Verbal Response: oriented(5). Motor Response: obeys aa1 commands(6). Total: 15. ED Course: 01:19 Patient arrived in ED. am2 01:20 Lubna Hunt FNP-C is Private Physician. am2 01:45 Triage completed. aa1 01:46 Sebastian Negro RN is Primary Nurse. jd3 01:47 Arm band placed on right wrist. aa1 01:49 Patient has correct armband on for positive identification. Bed in low position. Call jd3 light in reach. Side rails up X2. Adult w/ patient. 01:49 Seizure precautions initiated. jd3 02:08 Sudhir Lee MD is Attending Physician. pkl 02:28 Rene Cagle MD is Referral Physician. pkl 02:37 No provider procedures requiring assistance completed. Patient did not have IV access jd3 during this emergency room visit. Administered Medications: No medications were administered Outcome: 02:29 Discharge ordered by . pkl 02:37 Discharged to home ambulatory, with family. jd3 02:37 Condition: stable 02:37 Discharge instructions given to patient, family, Instructed on discharge instructions, follow up and referral plans. Demonstrated understanding of instructions, follow-up care. 02:37 Patient left the ED. jd3 Signatures: Laurita Miramontes RN RN aa1 Sudhir Lee MD MD pkl Moreno, Amanda am2 Sebastian Negro RN RN jdinora
== END 2018-09-06 02:37 | disposition home or self-care (01) ==
LOC: ER 01:18
DX: G40.909 Epilepsy, unspecified, not intractable, without status epilepticus (principal); G45.9 Transient cerebral ischemic attack, unspecified; J45.909 Unspecified asthma, uncomplicated; E11.9 Type 2 diabetes mellitus without complications; I10 Essential (primary) hypertension; Z86.73 Personal history of transient ischemic attack (TIA), and cerebral infarction without residual deficits; Z79.4 Long term (current) use of insulin; Z79.51 Long term (current) use of inhaled steroids; Z88.6 Allergy status to analgesic agent; Z88.0 Allergy status to penicillin; Z88.8 Allergy status to other drugs, medicaments and biological substances
CPT/HCPCS: 99281

== ENCOUNTER 2018-09-17 21:13 | Emergency (ER) | payer SELFPAY ==
--- OUTSIDE RECORDS SUMMARY | 2018-09-17 21:14 | XMS REPORT ---
:1975 [facility] Address [address] [place] [address] Care Team Providers Name Role Phone Unavailable Unavailable Unavailable Problems This patient has no known problems. Allergies, Adverse Reactions, Alerts This patient has no known allergies or adverse reactions. Medications This patient has no known medications.
--- OUTSIDE RECORDS SUMMARY | 2018-09-17 21:14 | XMS REPORT ---
[...] Status Dosage System Date Date ProAir HFA [facility] [id number] 108 (90 Base) Jul 26, Active 2 puffs as MCG/ACT 2018 needed Inhalation every 6 hrs Keppra ND 31539944613 500 MG Orally Aug 17, Active 2 tablets every 12 hrs 2018 HumuLIN 70/30 ND 02050580993 (70-30) 100 Jul 26, Active 10 units KwikPen UNIT/ML 2016 Subcutaneous bid Flonase ND 40008680493 50 MCG/ACT Jul 26, Active 2 spray in Nasally Once a 2017 each day nostril Bentyl ND 54403134935 20 MG Orally November 21, Active 1 tablet Four times a 2018 day Gabapentin ND 74758310225 300 MG Orally Jul 26, Active 2 capsule Three times a 2018 before day bedtime Zestoretic ND 45307230242 20-25 MG Orally Jul 26, Active 1 tablet Once a day 2016 Promethazine HCl ND 24055102982 50 MG Orally November 21, Active 1 tablet every 6 hrs 2016 as needed Tylenol # 3 NDC 0 300/30mg PO November 21, Active 1-2 tabs every 6 hrs. 2018 Results Name Result Date Reference Range Unit Abnormality Flag URINALYSIS AUTO W/O SCOPE (26428) ----NIT N [id number] ----URO 0.2 20171113 ----PROTEIN 1+ 20171113 ----pH 5.5 20171113 ----BLO N [id number] ----GLUCOSE N 20171113 ----ALBERTO N 20171113 ----BILIRUBIN 1+ 20171113 ----KETONES N 20171113 ----SPECIFIC GRAVITY >=1.030 20171113 Summary Purpose eClinicalWorks Submission
--- OUTSIDE RECORDS SUMMARY | 2018-09-17 21:14 | XMS REPORT ---
[...] Medications Results No Known Results Summary Purpose [employer] us Submission
--- OUTSIDE RECORDS SUMMARY | 2018-09-17 21:15 | XMS REPORT ---
[...] Date HumuLIN 70/30 [facility] 65704995508 (70-30) 100 Jul 26, Active 10 units KwikPen UNIT/ML 2016 Subcutaneous bid ProAir HFA [facility] 64530501402 108 (90 Base) Jul 26, Active 2 puffs as MCG/ACT 2018 needed Inhalation every 6 hrs Keppra [facility] 05244601776 500 MG Orally Active take two Twice a day -2 tablet(s) by mouth twice a day. Gabapentin ND 36579302595 600 MG Orally Jul 26, Active 1 capsule Three times a 2018 day Zestoretic ND 21998534926 20-25 MG Orally Jul 26, Active 1 tablet Once a day 2015 Bentyl ND 05377472825 20 MG Orally November 21, Active 1 tablet Four times a 2018 day Tylenol # 3 NDC 0 300/30mg PO November 21, Active 1-2 tabs every 6 hrs. 2018 Promethazine HCl ND 83077582112 50 MG Orally November 21, Active 1 tablet every 6 hrs 2016 as needed Flonase NDC 06549371925 50 MCG/ACT Jul 26, Active 2 spray in Nasally Once a 2018 each day nostril Results No Known Results Summary Purpose eClinicalWorks Submission
--- OUTSIDE RECORDS SUMMARY | 2018-09-17 21:15 | XMS REPORT ---
[...] Status Dosage System Date Date Bentyl ND 70047539219 20 MG Orally November 21, Active 1 tablet Four times a 2018 day Tylenol # 3 NDC 0 300/30mg PO November 21, Active 1-2 tabs every 6 hrs. 2018 Flonase ND 88764400328 50 MCG/ACT Jul 26, Active 2 spray in Nasally Once a 2018 each day nostril Promethazine HCl ND 44027413880 50 MG Orally November 21, Active 1 tablet every 6 hrs 2016 as needed Gabapentin ND 98383258498 600 MG Orally Jul 26, Active 1 capsule Three times a 2018 day ProAir HFA ND 79818318825 108 (90 Base) Jul 26, Active 2 puffs as MCG/ACT 2018 needed Inhalation every 6 hrs Keppra ND 72836301416 500 MG Orally Active take two Twice a day -2 tablet(s) by mouth twice a day. Zestoretic ND 39842576480 20-25 MG Orally Jul 26, Active 1 tablet Once a day 2015 HumuLIN 70/30 ND 58736678125 (70-30) 100 Jul 26, Active 10 units KwikPen UNIT/ML 2016 Subcutaneous bid Results Name Result Date Reference Range Unit Abnormality Flag URINALYSIS AUTO W/O SCOPE (15338) ----NIT N [id number] ----URO 1.0 20180219 ----PROTEIN TR [id number] ----pH 5.5 20180219 ----BLO N [id number] ----GLUCOSE N [id number] ----ALBERTO N [id number] ----BILIRUBIN N [id number] ----KETONES N [id number] ----SPECIFIC GRAVITY 1.025 [id number] Summary Purpose eClinicalWorks Submission
--- OUTSIDE RECORDS SUMMARY | 2018-09-17 21:15 | XMS REPORT ---
:1975 Author Organization eClinical[employer] Care Team Providers Name Role Phone Jackelyn Hunt Provider Role Unavailable Allergies, Adverse Reactions, Alerts Substance Reaction Event Type penicillin anaphylaxis Drug Allergy Zofran anaphylaxis Drug Allergy Iodine anaphylaxis Drug Allergy Diazepam anaphylaxis Drug Allergy Aspirin anaphylaxis Drug Allergy Problems Problem Type Condition Code Onset Dates Condition Status Assessment Accelerated essential hypertension I10 Active Problem Secondary diabetes with peripheral E13.42 Active neuropathy Assessment Diabetes type 2, controlled E11.9 Active Assessment Dysuria R30.0 Active Problem Diabetes type 2, controlled E11.9 Active Problem Mixed hyperlipidemia E78.2 Active Problem Morbid obesity E66.01 Active Problem Other specified diabetes mellitus E13.42 Active with diabetic polyneuropathy Problem Ulcerative colitis K51.90 Active Problem Epilepsy G40.909 Active Problem Accelerated essential hypertension I10 Active Medications Medication Code Code Instructions Start End Status Dosage System Date Date ProAir HFA [facility] [id number] 108 (90 Base) Jul 26, Active 2 puffs as MCG/ACT 2018 needed Inhalation every 6 hrs Gabapentin ND 11349582031 600 MG Orally Jul 26, Active 1 capsule Three times a 2018 day Keppra [facility] 50019875138 500 MG Active TAKE TWO (2) TABLET(S) BY MOUTH TWICE A DAY. Zestoretic [facility] 59176589923 20-25 MG Orally Jul 26, Active 1 tablet Once a day 2015 HumuLIN 70/30 [facility] 80979674616 (70-30) 100 Jul 26, Active 10 units KwikPen UNIT/ML 2016 Subcutaneous bid Flonase ND 28927909362 50 MCG/ACT Jul 26, Active 2 spray in Nasally Once a 2017 each day nostril Tramadol HCl ND 51177215891 50 MG Orally Active 1 tablet every 6 hrs as needed Levaquin ND 48708365180 500 MG Orally Active 1 tablet Once a day Lisinopril ND 22173022294 10 MG Orally Sep 09, Active 1 tablet Once a day 2018 Bentyl [facility] 72571759897 20 MG Orally November 21, Active 1 tablet Four times a day 2017 Results No Known Results Summary Purpose eClinicalWorks Submission
--- OUTSIDE RECORDS SUMMARY | 2018-09-17 21:15 | XMS REPORT ---
[...] [facility] 55870357465 50 MCG/ACT Jul 26, Active 2 spray in Nasally Once a 2017 each day nostril ProAir HFA [facility] 98936602297 108 (90 Base) Jul 26, Active 2 puffs as MCG/ACT 2018 needed Inhalation every 6 hrs Tylenol # 3 NDC 0 300/30mg PO November 21, Active 1-2 tabs every 6 hrs. 2018 Levaquin ND 57266630145 500 MG Orally Active 1 tablet Once a day Gabapentin ND 58107212036 600 MG Orally Jul 26, Active 1 capsule Three times a 2018 day Zestoretic ND 43491923744 20-25 MG Orally Jul 26, Active 1 tablet Once a day 2016 Keppra ND 11632366335 500 MG Orally Active take two Twice a day -2 tablet(s) by mouth twice a day. Tramadol HCl ND 54662818598 50 MG Orally Active 1 tablet every 6 hrs as needed Promethazine HCl ND 53798271017 50 MG Orally November 21, Active 1 tablet every 6 hrs 2016 as needed Bentyl ND 59894936755 20 MG Orally November 21, Active 1 tablet Four times a 2018 day HumuLIN 70/30 ND 61684155335 (70-30) 100 Jul 26, Active 10 units KwikPen UNIT/ML 2016 Subcutaneous bid Results No Known Results Summary Purpose eClinicalWorks Submission
--- NOTE | 2018-09-17 22:15 | EDPHYS ---
Physician Documentation [facility] Name: Britt Bower Age: 43 yrs Sex: Female : 1975 Arrival Date: 09/17/2018 Time: 21:14 Bed 14 Private MD: CHARISSE CORDOBA ED Physician Dontae López HPI: 09/17 22:07 This 43 yrs old Female presents to ER via Ambulatory with complaints of abebe Headache, Fall Injury, Hives. 22:07 The patient complains of pain to the forehead. The patient describes the headache as abebe aching. Onset: The symptoms/episode began/occurred today. Associated signs and symptoms: Pertinent positives: This patient does not have any pertinent positive signs or symptoms associated with a headache. Severity of symptoms: At its worst the pain was mild, in the emergency department the pain is unchanged. Headache History: The patient has had previous headaches and this one is similar to previous episodes. The patient has experienced similar episodes in the past, a few times. 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 N/A - Hysterectomy, history of hysterectomy as per patient cc3 Historical: - Allergies: 21:20 Amoxicillin; cc3 21:20 Aspirin; cc3 21:20 Coconut; cc3 21:20 shrimp; cc3 21:20 diazepam; cc3 21:20 Iodine; cc3 21:20 Morphine; cc3 21:20 Ondansetron HCl; cc3 21:20 PENICILLINS; cc3 21:20 Piperacillin Sodium; cc3 21:20 tazobactam sodium; cc3 21:20 Zofran; cc3 - Home Meds: 21:20 albuterol sulfate 90 mcg/actuation Inhl HFAA [Active]; flonace 2 puffs/day daily cc3 [Active]; gabapentin 600 mg Oral tab 1 tab 3 times per day for Neuropathic Pain [Active]; Humulin 70/30 100 unit/mL (70-30) Sub-Q tab 5 units twice a day for Type 2 Diabetes Mellitus [Active]; levetiracetam 500 mg Oral tab 2 tabs 2 times per day for Tonic-Clonic Epilepsy Treatment Adjunct [Active]; lisinopril-hydrochlorothiazide 20-25 mg Oral tab 1 tab once daily for Hypertension [Active]; - PMHx: 21:20 Asthma; Diabetes - IDDM; epilepsy; history of stroke; Hypertension; neuropathy; cc3 - PSHx: 21:20 Hysterectomy; Cholecystectomy; spider bite surgery; breast surgery for blood clot; cc3 - Immunization history:: Adult Immunizations up to date. - Social history:: Smoking status: Patient/guardian denies using tobacco, never smoked. - Ebola Screening: : No symptoms or risks identified at this time. - Family history:: not pertinent. ROS: 22:07 Constitutional: Negative for fever, chills, and weight loss, Eyes: Negative for injury, abebe pain, redness, and discharge, ENT: Negative for injury, pain, and discharge, Neck: Negative for injury, pain, and swelling, Cardiovascular: Negative for chest pain, palpitations, and edema, Respiratory: Negative for shortness of breath, cough, wheezing, and pleuritic chest pain, Abdomen/GI: Negative for abdominal pain, nausea, vomiting, diarrhea, and constipation, Back: Negative for injury and pain, : Negative for injury, bleeding, discharge, and swelling, MS/Extremity: Negative for injury and deformity, Skin: Negative for injury, rash, and discoloration, Psych: Negative for depression, anxiety, suicide ideation, homicidal ideation, and hallucinations, Allergy/Immunology: Negative for hives, rash, and allergies, Endocrine: Negative for neck swelling, polydipsia, polyuria, polyphagia, and marked weight changes, Hematologic/Lymphatic: Negative for swollen nodes, abnormal bleeding, and unusual bruising. 22:07 Neuro: Positive for headache. Exam: 22:07 Constitutional: This is a well developed, well nourished patient who is awake, alert, abebe and in no acute distress. Head/Face: Normocephalic, atraumatic. Eyes: Pupils equal round and reactive to light, extra-ocular motions intact. Lids and lashes normal. Conjunctiva and sclera are non-icteric and not injected. Cornea within normal limits. Periorbital areas with no swelling, redness, or edema. ENT: Nares patent. No nasal discharge, no septal abnormalities noted. Tympanic membranes are normal and external auditory canals are clear. Oropharynx with no redness, swelling, or masses, exudates, or evidence of obstruction, uvula midline. Mucous membranes moist. Neck: Trachea midline, no thyromegaly or masses palpated, and no cervical lymphadenopathy. Supple, full range of motion without nuchal rigidity, or vertebral point tenderness. No Meningismus. Chest/axilla: Normal chest wall appearance and motion. Nontender with no deformity. No lesions are appreciated. Cardiovascular: Regular rate and rhythm with a normal S1 and S2. No gallops, murmurs, or rubs. Normal PMI, no JVD. No pulse deficits. Respiratory: Lungs have equal breath sounds bilaterally, clear to auscultation and percussion. No rales, rhonchi or wheezes noted. No increased work of breathing, no retractions or nasal flaring. Abdomen/GI: Soft, non-tender, with normal bowel sounds. No distension or tympany. No guarding or rebound. No evidence of tenderness throughout. Back: No spinal tenderness. No costovertebral tenderness. Full range of motion. Skin: Warm, dry with normal turgor. Normal color with no rashes, no lesions, and no evidence of cellulitis. MS/ Extremity: Pulses equal, no cyanosis. Neurovascular intact. Full, normal range of motion. Neuro: Awake and alert, GCS 15, oriented to person, place, time, and situation. Cranial nerves II-XII grossly intact. Motor strength 5/5 in all extremities. Sensory grossly intact. Cerebellar exam normal. Normal gait. Psych: Awake, alert, with orientation to person, place and time. Behavior, mood, and affect are within normal limits. Vital Signs: 21:20 BP 122 / 85; Pulse 86; Resp 17 S; Temp 98.3(O); Pulse Ox 96% on R/A; Weight 96.16 kg cc3 (R); Height 5 ft. 11 in. (180.34 cm) (R); Pain 8/10; 22:24 BP 104 / 68; Pulse 82; Resp 18; Temp 98.0(O); Pulse Ox 100% on R/A; Pain 7/10; fc 21:20 Body Mass Index 29.57 (96.16 kg, 180.34 cm) cc3 MDM: 21:23 Patient medically screened. [facility] 22:07 Data reviewed: vital signs, nurses notes. abebe Administered Medications: No medications were administered Disposition: 09/17/18 22:14 Discharged to Home. Impression: Headache, Fall due to bumping against object, Superficial injury of head. - Condition is Stable. - Discharge Instructions: Contusion, Head Injury, Adult, Contusion, [id number], Head Injury, Adult, [id number]. - Work release form, Medication Reconciliation Form, Thank You Letter, Antibiotic Education, Prescription Opioid Use form. - Follow up: CHARISSE CORDOBA; When: 2 - 3 days; Reason: Recheck today's complaints, Continuance of care, Re-evaluation by your physician. - Problem is new. - Symptoms have improved. Signatures: Dontae López MD MD cha Chretien, Felicia RN RN Johanna Rivera cc3 Corrections: (The following items were deleted from the chart) 22:26 22:14 09/17/2018 22:14 Discharged to Home. Impression: Headache; Fall due to bumping fc against object; Superficial injury of head. Condition is Stable. Forms are Medication Reconciliation Form, Thank You Letter, Antibiotic Education, Prescription Opioid Use. Follow up: CHARISSE CORDOBA; When: 2 - 3 days; Reason: Recheck today's complaints, Continuance of care, Re-evaluation by your physician. Problem is new. Symptoms have improved. abebe
--- NOTE | 2018-09-17 22:15 | ER ---
Nurse's Notes [facility] Name: Britt Bower Age: 43 yrs Sex: Female : 1975 Arrival Date: 09/17/2018 Time: 21:14 Bed 14 Private MD: CHARISSE CORDOBA Diagnosis: Headache;Fall due to bumping against object;Superficial injury of head Presentation: 09/17 21:20 Presenting complaint: Patient states: "Been having a headache as I slipped and fell in cc3 bathroom hitting my head in the water faucet at noon today, no loss of consciousness and I was just shaky or having tremor-like symptoms right after the fall". Patient said she's been having headaches already prior to falling and she said that she's started to have hives today ever since her asthma medication has been changed. Transition of care: patient was not received from another setting of care. Onset of symptoms was September 17, 2018. Risk Assessment: Do you want to hurt yourself or someone else? Patient reports no desire to harm self or others. Initial Sepsis Screen: Does the patient meet any 2 criteria? No. Patient's initial sepsis screen is negative. Does the patient have a suspected source of infection? No. Patient's initial sepsis screen is negative. Care prior to arrival: None. 21:20 Method Of Arrival: Ambulatory cc3 21:20 Acuity: DUKE 3 cc3 Triage Assessment: 21:20 Headache History: The patient has had previous headaches and this one is more severe cc3 than previous episodes. General: Appears in no apparent distress. comfortable, Behavior is calm, cooperative, appropriate for age. Pain: Complains of pain in head, legs Pain currently is 8 out of 10 on a pain scale. Quality of pain is described as aching, Pain began noontime Also complains of no other associated symptoms. EENT: No signs and/or symptoms were reported regarding the EENT system. Neuro: Level of Consciousness is awake, alert, obeys commands, Oriented to person, place, time, situation, Appropriate for age. Cardiovascular: Denies chest pain, Patient's skin is warm and dry. Respiratory: Airway is patent Respiratory effort is even, unlabored, Respiratory pattern is regular, symmetrical. GI: Abdomen is round non-distended. : No signs and/or symptoms were reported regarding the genitourinary system. Derm: Rash noted that is itchy. Musculoskeletal: Circulation, motion, and sensation intact. Range of motion: intact in all extremities. 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 N/A - Hysterectomy, history of hysterectomy as per patient cc3 Historical: - Allergies: 21:20 Amoxicillin; cc3 21:20 Aspirin; cc3 21:20 Coconut; cc3 21:20 shrimp; cc3 21:20 diazepam; cc3 21:20 Iodine; cc3 21:20 Morphine; cc3 21:20 Ondansetron HCl; cc3 21:20 PENICILLINS; cc3 21:20 Piperacillin Sodium; cc3 21:20 tazobactam sodium; cc3 21:20 Zofran; cc3 - Home Meds: 21:20 albuterol sulfate 90 mcg/actuation Inhl HFAA [Active]; flonace 2 puffs/day daily cc3 [Active]; gabapentin 600 mg Oral tab 1 tab 3 times per day for Neuropathic Pain [Active]; Humulin 70/30 100 unit/mL (70-30) Sub-Q tab 5 units twice a day for Type 2 Diabetes Mellitus [Active]; levetiracetam 500 mg Oral tab 2 tabs 2 times per day for Tonic-Clonic Epilepsy Treatment Adjunct [Active]; lisinopril-hydrochlorothiazide 20-25 mg Oral tab 1 tab once daily for Hypertension [Active]; - PMHx: 21:20 Asthma; Diabetes - IDDM; epilepsy; history of stroke; Hypertension; neuropathy; cc3 - PSHx: 21:20 Hysterectomy; Cholecystectomy; spider bite surgery; breast surgery for blood clot; cc3 - Immunization history:: Adult Immunizations up to date. - Social history:: Smoking status: Patient/guardian denies using tobacco, never smoked. - Ebola Screening: : No symptoms or risks identified at this time. - Family history:: not pertinent. Screenin:20 Abuse screen: Denies threats or abuse. Denies injuries from another. Nutritional cc3 screening: No deficits noted. Tuberculosis screening: No symptoms or risk factors identified. Fall Risk Ambulatory Aid- None/Bed Rest/Nurse Assist (0 pts). Gait- Normal/Bed Rest/Wheelchair (0 pts) Mental Status- Oriented to own ability (0 pts). Assessment: 21:20 General: see triage assessment. cc3 22:25 Reassessment: Patient appears in no apparent distress at this time. Patient and/or cc3 family updated on plan of care and expected duration. Pain level reassessed. Patient is alert, oriented x 3, equal unlabored respirations, skin warm/dry/pink. Dr. López discharged the patient home, no prescription given. No IV cannula in situ. Patient left ER vitally stable and ambulatory with family. Vital Signs: 21:20 BP 122 / 85; Pulse 86; Resp 17 S; Temp 98.3(O); Pulse Ox 96% on R/A; Weight 96.16 kg cc3 (R); Height 5 ft. 11 in. (180.34 cm) (R); Pain 8/10; 22:24 BP 104 / 68; Pulse 82; Resp 18; Temp 98.0(O); Pulse Ox 100% on R/A; Pain 7/10; fc 21:20 Body Mass Index 29.57 (96.16 kg, 180.34 cm) cc3 ED Course: 21:14 Patient arrived in ED. am2 21:15 CHARISSE CORDOBA is Private Physician. am2 21:20 Arm band placed on right wrist. Patient notified of wait time. cc3 21:20 Patient has correct armband on for positive identification. Bed in low position. Call cc3 light in reach. Side rails up X 1. Pulse ox on. NIBP on. 21:23 Dontae López MD is Attending Physician. abebe 21:35 Johanna Rivera is Primary Nurse. cc3 21:42 Triage completed. cc3 22:12 CHARISSE CORDOBA is Referral Physician. [facility] 22:24 No provider procedures requiring assistance completed. Patient did not have IV access fc during this emergency room visit. Administered Medications: No medications were administered Outcome: 22:14 Discharge ordered by . [facility] 22:25 Discharged to home ambulatory, with family. 22:25 Condition: good 22:25 Discharge instructions given to patient, family, Instructed on discharge instructions, follow up and referral plans. Demonstrated understanding of instructions, follow-up care, Prescriptions given X none 22:26 Patient left the ED. fc Signatures: Dontae López MD MD cha Chretien, Felicia, RN RN Pearl Fu 2 Johanna Rivera cc3 Corrections: (The following items were deleted from the chart) 21:50 21:20 Presenting complaint: Patient states: "Been having a headache as I slipped and cc3 fell in bathroom hitting my head in the water faucet at noon today" cc3
[2018-09-17 22:33] VITALS: BP 104/68; TEMP 98; O2SAT 100
== END 2018-09-17 22:26 | disposition home or self-care (01) ==
LOC: ER 21:13
DX: S00.90XA Unspecified superficial injury of unspecified part of head, initial encounter (principal); W18.00XA Striking against unspecified object with subsequent fall, initial encounter; Z79.4 Long term (current) use of insulin; Z88.0 Allergy status to penicillin; Z88.1 Allergy status to other antibiotic agents; Z88.5 Allergy status to narcotic agent; Z88.6 Allergy status to analgesic agent; Z88.8 Allergy status to other drugs, medicaments and biological substances; Z86.73 Personal history of transient ischemic attack (TIA), and cerebral infarction without residual deficits; Z91.013 Allergy to seafood; Z91.018 Allergy to other foods; I10 Essential (primary) hypertension; E11.9 Type 2 diabetes mellitus without complications; G40.909 Epilepsy, unspecified, not intractable, without status epilepticus; J45.909 Unspecified asthma, uncomplicated
CPT/HCPCS: 99283

== ENCOUNTER 2018-10-08 14:14 | Emergency (ER) | payer SELFPAY ==
--- OUTSIDE RECORDS SUMMARY | 2018-10-08 14:16 | XMS REPORT ---
[...] Status Dosage System Date Date ProAir HFA [facility] 16925670904 108 (90 Base) Jul 26, Active 2 puffs as MCG/ACT 2018 needed Inhalation every 6 hrs Keppra ND 74734106212 500 MG Orally Aug 17, Active 2 tablets every 12 hrs 2018 HumuLIN 70/30 ND 48129534889 (70-30) 100 Jul 26, Active 10 units KwikPen UNIT/ML 2016 Subcutaneous bid Flonase ND 12748100698 50 MCG/ACT Jul 26, Active 2 spray in Nasally Once a 2017 each day nostril Bentyl ND 06605943526 20 MG Orally November 21, Active 1 tablet Four times a 2018 day Gabapentin ND 68223845641 300 MG Orally Jul 26, Active 2 capsule Three times a 2018 before day bedtime Zestoretic ND 93105132026 20-25 MG Orally Jul 26, Active 1 tablet Once a day 2016 Promethazine HCl ND 39959026255 50 MG Orally November 21, Active 1 tablet every 6 hrs 2016 as needed Tylenol # 3 NDC 0 300/30mg PO November 21, Active 1-2 tabs every 6 hrs. 2018 Results Name Result Date Reference Range Unit Abnormality Flag URINALYSIS AUTO W/O SCOPE (18853) ----NIT N 20171113 ----URO 0.2 20171113 ----PROTEIN 1+ 20171113 ----pH 5.5 20171113 ----BLO N 20171113 ----GLUCOSE N 20171113 ----ALBERTO N 20171113 ----BILIRUBIN 1+ 20171113 ----KETONES N 20171113 ----SPECIFIC GRAVITY >=1.030 20171113 Summary Purpose eClinicalWorks Submission
--- OUTSIDE RECORDS SUMMARY | 2018-10-08 14:16 | XMS REPORT ---
:1975 [facility] Address [address] [place] [address] Care Team Providers Name Role Phone Unavailable Unavailable Unavailable Problems This patient has no known problems. Allergies, Adverse Reactions, Alerts This patient has no known allergies or adverse reactions. Medications This patient has no known medications.
--- OUTSIDE RECORDS SUMMARY | 2018-10-08 14:16 | XMS REPORT ---
[...] Medications Results No Known Results Summary Purpose [employer] Submission
--- OUTSIDE RECORDS SUMMARY | 2018-10-08 14:16 | XMS REPORT ---
[...] HumuLIN 70/30 [facility] 39664490910 (70-30) 100 Jul 26, Active 10 units KwikPen UNIT/ML 2016 Subcutaneous bid ProAir HFA [facility] 05856463702 108 (90 Base) Jul 26, Active 2 puffs as MCG/ACT 2018 needed Inhalation every 6 hrs Keppra [facility] 28723388630 500 MG Orally Active take two Twice a day -2 tablet(s) by mouth twice a day. Gabapentin ND 30374756629 600 MG Orally Jul 26, Active 1 capsule Three times a 2018 day Zestoretic ND 00450109782 20-25 MG Orally Jul 26, Active 1 tablet Once a day 2015 Bentyl ND 35518957395 20 MG Orally November 21, Active 1 tablet Four times a 2018 day Tylenol # 3 NDC 0 300/30mg PO November 21, Active 1-2 tabs every 6 hrs. 2018 Promethazine HCl ND 33188628992 50 MG Orally November 21, Active 1 tablet every 6 hrs 2016 as needed Flonase NDC 92509218968 50 MCG/ACT Jul 26, Active 2 spray in Nasally Once a 2018 each day nostril Results No Known Results Summary Purpose eClinicalWorks Submission
--- OUTSIDE RECORDS SUMMARY | 2018-10-08 14:16 | XMS REPORT ---
[...] Status Dosage System Date Date Bentyl ND 80020750455 20 MG Orally November 21, Active 1 tablet Four times a 2018 day Tylenol # 3 NDC 0 300/30mg PO November 21, Active 1-2 tabs every 6 hrs. 2018 Flonase ND 71997864050 50 MCG/ACT Jul 26, Active 2 spray in Nasally Once a 2018 each day nostril Promethazine HCl ND 23966156520 50 MG Orally November 21, Active 1 tablet every 6 hrs 2016 as needed Gabapentin ND 42409306005 600 MG Orally Jul 26, Active 1 capsule Three times a 2018 day ProAir HFA ND 96252444098 108 (90 Base) Jul 26, Active 2 puffs as MCG/ACT 2018 needed Inhalation every 6 hrs Keppra ND 66653868426 500 MG Orally Active take two Twice a day -2 tablet(s) by mouth twice a day. Zestoretic ND 03331809303 20-25 MG Orally Jul 26, Active 1 tablet Once a day 2015 HumuLIN 70/30 ND 78708550578 (70-30) 100 Jul 26, Active 10 units KwikPen UNIT/ML 2016 Subcutaneous bid Results Name Result Date Reference Range Unit Abnormality Flag URINALYSIS AUTO W/O SCOPE (51208) ----NIT N [id number] ----URO 1.0 20180219 ----PROTEIN TR [id number] ----pH 5.5 20180219 ----BLO N [id number] ----GLUCOSE N [id number] ----ALBERTO N [id number] ----BILIRUBIN N [id number] ----KETONES N [id number] ----SPECIFIC GRAVITY 1.025 [id number] Summary Purpose eClinicalWorks Submission
--- OUTSIDE RECORDS SUMMARY | 2018-10-08 14:17 | XMS REPORT ---
[...] Status Dosage System Date Date Flonase [facility] 50042231478 50 MCG/ACT Jul 26, Active 2 spray in Nasally Once a 2017 each day nostril ProAir HFA [facility] 61985107978 108 (90 Base) Jul 26, Active 2 puffs as MCG/ACT 2018 needed Inhalation every 6 hrs Tylenol # 3 NDC 0 300/30mg PO November 21, Active 1-2 tabs every 6 hrs. 2018 Levaquin ND 31790738193 500 MG Orally Active 1 tablet Once a day Gabapentin ND 78227074915 600 MG Orally Jul 26, Active 1 capsule Three times a 2018 day Zestoretic ND 27576101288 20-25 MG Orally Jul 26, Active 1 tablet Once a day 2016 Keppra ND 25907538888 500 MG Orally Active take two Twice a day -2 tablet(s) by mouth twice a day. Tramadol HCl ND 28501278582 50 MG Orally Active 1 tablet every 6 hrs as needed Promethazine HCl ND 64565215283 50 MG Orally November 21, Active 1 tablet every 6 hrs 2016 as needed Bentyl ND 29655339859 20 MG Orally November 21, Active 1 tablet Four times a 2018 day HumuLIN 70/30 ND 63985253813 (70-30) 100 Jul 26, Active 10 units KwikPen UNIT/ML 2016 Subcutaneous bid Results No Known Results Summary Purpose eClinicalWorks Submission
--- OUTSIDE RECORDS SUMMARY | 2018-10-08 14:17 | XMS REPORT ---
[...] Status Dosage System Date Date ProAir HFA [facility] 46213533005 108 (90 Base) Jul 26, Active 2 puffs as MCG/ACT 2018 needed Inhalation every 6 hrs Gabapentin ND 65027973693 600 MG Orally Jul 26, Active 1 capsule Three times a 2018 day Keppra [facility] 23090807354 500 MG Active TAKE TWO (2) TABLET(S) BY MOUTH TWICE A DAY. Zestoretic [facility] 37099935612 20-25 MG Orally Jul 26, Active 1 tablet Once a day 2015 HumuLIN 70/30 [facility] 88799235568 (70-30) 100 Jul 26, Active 10 units KwikPen UNIT/ML 2016 Subcutaneous bid Flonase ND 54985031318 50 MCG/ACT Jul 26, Active 2 spray in Nasally Once a 2017 each day nostril Tramadol HCl ND 56558562530 50 MG Orally Active 1 tablet every 6 hrs as needed Levaquin ND 94450605136 500 MG Orally Active 1 tablet Once a day Lisinopril ND 41045301862 10 MG Orally Sep 09, Active 1 tablet Once a day 2018 Bentyl [facility] 98775608685 20 MG Orally November 21, Active 1 tablet Four times a day 2017 Results No Known Results Summary Purpose eClinicalWorks Submission
[2018-10-08] MEDS ORDERED: NA CHLORIDE 0.9% 1,000 ML ONE (16:06)
[2018-10-08 16:20] LABS: Absolute Lymphocytes (CBC) 1.5 K/uL (0.7-4.9); Absolute Monocytes 0.5 K/uL (0.1-1.3); Absolute Neutrophil 1.4 K/uL (1.8-8.0); Basophils % 0.1 % (0-1.3); Eosinophils % 3.7 % (0-4.4); Hematocrit 41.6 % (36.0-45.0); Lymphocytes % 43.3 % (15.3-44.8); MPV 7.8 fL (7.6-11.3); Monocytes % 13.1 % (3.3-12.3); RBC Red Blood Cell Count 4.62 M/uL (3.86-4.86)
[2018-10-08 16:27] LABS: Protime INR 0.97
[2018-10-08 16:40] LABS: ALT/SGPT 30 U/L (12-78); AST/SGOT 25 U/L (15-37); Albumin 3.6 g/dL (3.4-5.0); Alkaline Phosphatase 77 U/L (45-117); BUN Blood Urea Nitrogen 12 mg/dL (7-18); Bicarbonate 28 mmol/L (21-32); Bilirubin Direct < 0.1 mg/dL (0-0.2); Bilirubin Total 0.2 mg/dL (0.2-1.0); Glucose Level 78 mg/dL (74-106); Magnesium 2.2 mg/dL (1.8-2.4); NT PRO-BNP 21 pg/mL (<125); Potassium 3.4 mmol/L (3.5-5.1); Protein, Total 7.4 g/dL (6.4-8.2); Sodium Level 140 mmol/L (136-145); Troponin (Emerg Dept Use Only) < 0.02 ng/mL (0.0-0.045)
--- NOTE | 2018-10-08 17:17 | RAD REPORT ---
EXAM DESCRIPTION: Mona Single View10/08/2018 4:41 pm CLINICAL HISTORY: Shortness of breath COMPARISON: August 2018 FINDINGS: The lungs appear clear of acute infiltrate. The heart is normal size IMPRESSION: No acute abnormalities displayed
--- NOTE | 2018-10-08 17:26 | EDPHYS ---
Physician Documentation [facility] Name: Britt Bower Age: 43 yrs Sex: Female : 1975 Arrival Date: 10/08/2018 Time: 14:15 Bed 27 Private MD: ED Physician Dontae López HPI: 10/08 17:22 This 43 yrs old Female presents to ER via Wheelchair with complaints of jr8 Congestion, Blood Pressure Problem. 17:22 Patient stated that she was started on an additional BP medication about one week ago. jr8 Had been doing ok till yesterday. Noticed she was dizzy with standing and feeling that she was going to pass out. Had mild chest tightness. Also saw Blood in stool. Blood now resolved . Severity of symptoms: At their worst the symptoms were moderate in the emergency department the symptoms are unchanged. The patient has not experienced similar symptoms in the past. The patient has not recently seen a physician. 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 mg2 Historical: - Allergies: 14:55 Amoxicillin; ch 14:55 Aspirin; ch 14:55 Coconut; ch 14:55 diazepam; ch 14:55 Iodine; ch 14:55 Morphine; ch 14:55 Ondansetron HCl; ch 14:55 PENICILLINS; ch 14:55 Piperacillin Sodium; ch 14:55 shrimp; ch 14:55 tazobactam sodium; ch 14:55 Zofran; ch - Home Meds: 18:34 albuterol sulfate 90 mcg/actuation Inhl HFAA [Active]; flonace 2 puffs/day daily mg2 [Active]; gabapentin 600 mg Oral tab 1 tab 3 times per day for Neuropathic Pain [Active]; Humulin 70/30 100 unit/mL (70-30) Sub-Q tab 5 units twice a day for Type 2 Diabetes Mellitus [Active]; levetiracetam 500 mg Oral tab 2 tabs 2 times per day for Tonic-Clonic Epilepsy Treatment Adjunct [Active]; lisinopril-hydrochlorothiazide 20-25 mg Oral tab 1 tab once daily for Hypertension [Active]; - PMHx: 14:55 Asthma; Diabetes - IDDM; epilepsy; history of stroke; Hypertension; neuropathy; ch - PSHx: 14:55 Hysterectomy; Cholecystectomy; spider bite surgery; breast surgery for blood clot; ch - Immunization history:: Adult Immunizations up to date. - Social history:: Smoking status: Patient/guardian denies using tobacco, Patient/guardian denies using alcohol, street drugs. - Ebola Screening: : Patient negative for fever greater than or equal to 101.5 degrees Fahrenheit, and additional compatible Ebola Virus Disease symptoms Patient denies exposure to infectious person Patient denies travel to an Ebola-affected area in the 21 days before illness onset No symptoms or risks identified at this time. ROS: 17:22 Eyes: Negative for injury, pain, redness, and discharge, ENT: Negative for injury, jr8 pain, and discharge, Neck: Negative for injury, pain, and swelling, Back: Negative for injury and pain, MS/Extremity: Negative for injury and deformity, Skin: Negative for injury, rash, and discoloration. 17:22 Cardiovascular: Positive for chest pain, Negative for edema, orthopnea, palpitations, paroxysmal nocturnal dyspnea. 17:22 Respiratory: Positive for cough, shortness of breath, Negative for dyspnea on exertion. 17:22 Abdomen/GI: Positive for rectal bleeding, Negative for abdominal pain, nausea, vomiting, and diarrhea, abdominal cramps, abdominal distension, anorexia, dysphagia, hematemesis, black/tarry stool, rectal pain, bowel incontinence, flatulence. 17:22 Neuro: Positive for dizziness, near syncope. Exam: 17:22 Eyes: Pupils equal round and reactive to light, extra-ocular motions intact. Lids and jr8 lashes normal. Conjunctiva and sclera are non-icteric and not injected. Cornea within normal limits. Periorbital areas with no swelling, redness, or edema. ENT: Nares patent. No nasal discharge, no septal abnormalities noted. Tympanic membranes are normal and external auditory canals are clear. Oropharynx with no redness, swelling, or masses, exudates, or evidence of obstruction, uvula midline. Mucous membranes moist. Neck: Trachea midline, no thyromegaly or masses palpated, and no cervical lymphadenopathy. Supple, full range of motion without nuchal rigidity, or vertebral point tenderness. No Meningismus. Cardiovascular: Regular rate and rhythm with a normal S1 and S2. No gallops, murmurs, or rubs. Normal PMI, no JVD. No pulse deficits. Respiratory: Lungs have equal breath sounds bilaterally, clear to auscultation and percussion. No rales, rhonchi or wheezes noted. No increased work of breathing, no retractions or nasal flaring. Abdomen/GI: Soft, non-tender, with normal bowel sounds. No distension or tympany. No guarding or rebound. No evidence of tenderness throughout. Back: No spinal tenderness. No costovertebral tenderness. Full range of motion. Skin: Warm, dry with normal turgor. Normal color with no rashes, no lesions, and no evidence of cellulitis. MS/ Extremity: Pulses equal, no cyanosis. Neurovascular intact. Full, normal range of motion. Neuro: Awake and alert, GCS 15, oriented to person, place, time, and situation. Cranial nerves II-XII grossly intact. Motor strength 5/5 in all extremities. Sensory grossly intact. Cerebellar exam normal. Normal gait. Vital Signs: 14:55 BP 106 / 70; Pulse 80; Resp 16; Temp 98.2; Pulse Ox 99% on R/A; Weight 96.62 kg; Height ch 5 ft. (152.40 cm); Pain 4/10; 16:29 BP 104 / 69 Supine; lt1 16:29 BP 115 / 80 Sitting; lt1 16:29 BP 121 / 85 Standing; lt1 16:31 BP 121 / 85; Pulse 71; Resp 16; Pulse Ox 100% ; lt1 14:55 Body Mass Index 41.60 (96.62 kg, 152.40 cm) MDM: 15:32 Patient medically screened. jr8 17:22 Data reviewed: vital signs, nurses notes, lab test result(s), EKG, radiologic studies, jr8 plain films. Data interpreted: Pulse oximetry: on room air is 100 %. Interpretation: normal. Counseling: I had a detailed discussion with the patient and/or guardian regarding: the historical points, exam findings, and any diagnostic results supporting the discharge/admit diagnosis, lab results, radiology results, the need for outpatient follow up, a family practitioner, to return to the emergency department if symptoms worsen or persist or if there are any questions or concerns that arise at home. 17:26 Differential Diagnosis LA, Arrhythmia, Pneumonia, adverse medication reaction, jr8 Orthostatic hypotension, Anemia, gastrointestinal hemorrhage, heart failure. 10/08 15:48 Order name: Basic Metabolic Panel; Complete Time: 17:00 jr8 10/08 15:48 Order name: CBC with Diff jr8 03/22 15:48 Order name: LFT's; Complete Time: 17:00 10/08 15:48 Order name: Magnesium; Complete Time: 17:10/08 15:48 Order name: NT PRO-BNP; Complete Time: 17:00 10/08 15:48 Order name: PT-INR; Complete Time: 16:37 10/08 15:48 Order name: Troponin (emerg Dept Use Only); Complete Time: 17:00 10/08 15:48 Order name: XRAY Chest (1 view); Complete Time: 17:22 10/08 15:48 Order name: EKG; Complete Time: 15:49 10/08 15:48 Order name: Cardiac monitoring; Complete Time: 16:15 10/08 15:48 Order name: EKG - Nurse/Tech; Complete Time: 16:15 10/08 15:48 Order name: IV Saline Lock; Complete Time: 16:15 10/08 15:48 Order name: Labs collected and sent; Complete Time: 16:15 10/08 15:48 Order name: O2 Per Protocol; Complete Time: 16:15 10/08 15:48 Order name: O2 Sat Monitoring; Complete Time: 16:15 10/08 15:48 Order name: Orthostatic Blood Pressure; Complete Time: 16:35 Administered Medications: 16:14 Drug: NS 0.9% 1000 ml Route: IV; Rate: 1000 ml; Site: right hand; mg2 17:51 Follow up: Response: No adverse reaction; IV Status: Completed infusion mg2 Disposition: 10/08/18 17:25 Discharged to Home. Impression: Adverse medication reaction . - Condition is Stable. - Discharge Instructions: Nonspecific Chest Pain, Orthostatic Hypotension. - Medication Reconciliation Form, Thank You Letter, Antibiotic Education, Prescription Opioid Use, Work release form form. - Follow up: Private Physician; When: 2 - 3 days; Reason: Recheck today's complaints, Continuance of care, Re-evaluation by your physician. - Problem is new. - Symptoms have improved. Addendum: 10/11/2018 10:06 Co-signature as Attending Physician, Dontae López MD I agree with the assessment and c hope plan of care. Signatures: Dispatcher [employer] EDBeverley Valera, RN RN Dontae López MD MD cha Roszak, Josh, PA PA jr8 Rafi Cooney RN RN mg2 Corrections: (The following items were deleted from the chart) 10/08 17:58 17:25 10/08/2018 17:25 Discharged to Home. Impression: Adverse medication reaction . mg2 Condition is Stable. Forms are Medication Reconciliation Form, Thank You Letter, Antibiotic Education, Prescription Opioid Use. Follow up: Private Physician; When: 2 - 3 days; Reason: Recheck today's complaints, Continuance of care, Re-evaluation by your physician. Problem is new. Symptoms have improved. jr8
--- NOTE | 2018-10-08 17:26 | ER ---
Nurse's Notes [facility] Name: Britt Bower Age: 43 yrs Sex: Female : 1975 Arrival Date: 10/08/2018 Time: 14:15 Bed 27 Private MD: Diagnosis: Adverse medication reaction Presentation: 10/08 14:54 Presenting complaint: Patient states: Nasal congestion for a week, now I feel like I ch cannot catch my breath. as well yesterday I went poop and there was a lot of blood in it. that happens periodically. and my lower back hurts, and my sinuses hurt. Transition of care: patient was not received from another setting of care. Onset of symptoms was October 01, 2018. Risk Assessment: Do you want to hurt yourself or someone else? Patient reports no desire to harm self or others. Initial Sepsis Screen: Does the patient meet any 2 criteria? No. Patient's initial sepsis screen is negative. Does the patient have a suspected source of infection? No. Patient's initial sepsis screen is negative. Care prior to arrival: None. 14:54 Method Of Arrival: Wheelchair 14:54 Acuity: [facility] 3 ch Triage Assessment: 14:55 General: Appears in no apparent distress. uncomfortable, Behavior is calm, cooperative, ch appropriate for age. Pain: Complains of pain in forehead, right eye, right cheek, left cheek and left eye. 14:57 Respiratory:. ch 16:30 Cardiovascular: Capillary refill < 3 seconds Patient's skin is warm and dry. mg2 Respiratory: Breath sounds are clear. 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 mg2 Historical: - Allergies: 14:55 Amoxicillin; ch 14:55 Aspirin; ch 14:55 Coconut; ch 14:55 diazepam; ch 14:55 Iodine; ch 14:55 Morphine; ch 14:55 Ondansetron HCl; ch 14:55 PENICILLINS; ch 14:55 Piperacillin Sodium; ch 14:55 shrimp; ch 14:55 tazobactam sodium; ch 14:55 Zofran; ch - Home Meds: 18:34 albuterol sulfate 90 mcg/actuation Inhl HFAA [Active]; flonace 2 puffs/day daily mg2 [Active]; gabapentin 600 mg Oral tab 1 tab 3 times per day for Neuropathic Pain [Active]; Humulin 70/30 100 unit/mL (70-30) Sub-Q tab 5 units twice a day for Type 2 Diabetes Mellitus [Active]; levetiracetam 500 mg Oral tab 2 tabs 2 times per day for Tonic-Clonic Epilepsy Treatment Adjunct [Active]; lisinopril-hydrochlorothiazide 20-25 mg Oral tab 1 tab once daily for Hypertension [Active]; - PMHx: 14:55 Asthma; Diabetes - IDDM; epilepsy; history of stroke; Hypertension; neuropathy; ch - PSHx: 14:55 Hysterectomy; Cholecystectomy; spider bite surgery; breast surgery for blood clot; ch - Immunization history:: Adult Immunizations up to date. - Social history:: Smoking status: Patient/guardian denies using tobacco, Patient/guardian denies using alcohol, street drugs. - Ebola Screening: : Patient negative for fever greater than or equal to 101.5 degrees Fahrenheit, and additional compatible Ebola Virus Disease symptoms Patient denies exposure to infectious person Patient denies travel to an Ebola-affected area in the 21 days before illness onset No symptoms or risks identified at this time. Screenin:57 Abuse screen: Denies threats or abuse. Denies injuries from another. Nutritional mg2 screening: No deficits noted. Tuberculosis screening: No symptoms or risk factors identified. Fall Risk Assessment: 16:30 Cardiovascular: Capillary refill < 3 seconds Patient's skin is warm and dry. mg2 17:00 Respiratory: Airway is patent. mg2 17:50 Reassessment: pls see triage assessment. mg2 Vital Signs: 14:55 BP 106 / 70; Pulse 80; Resp 16; Temp 98.2; Pulse Ox 99% on R/A; Weight 96.62 kg; Height ch 5 ft. (152.40 cm); Pain 4/10; 16:29 BP 104 / 69 Supine; lt1 16:29 BP 115 / 80 Sitting; lt1 16:29 BP 121 / 85 Standing; lt1 16:31 BP 121 / 85; Pulse 71; Resp 16; Pulse Ox 100% ; lt1 14:55 Body Mass Index 41.60 (96.62 kg, 152.40 cm) ch ED Course: 14:15 Patient arrived in ED. as 14:55 Triage completed. ch 14:57 Arm band placed on left wrist. Patient placed in waiting room. ch 15:32 Jaquan Doyle PA is PHCP. jr8 15:32 Dontae López MD is Attending Physician. jr8 15:33 Rafi Cooney, RN is Primary Nurse. mg2 16:22 EKG done, by operating theatre technician. reviewed by Jaquan VÁZQUEZ. 3 16:40 X-ray completed. Portable x-ray completed in exam room. Patient tolerated procedure ml well. 16:42 XRAY Chest (1 view) In Process Unspecified. EDMS 17:00 Patient has correct armband on for positive identification. mg2 17:00 Inserted saline lock: 24 gauge in right hand, using aseptic technique. Blood collected. mg2 17:58 No provider procedures requiring assistance completed. mg2 17:58 IV discontinued, intact, bleeding controlled, No redness/swelling at site. Pressure mg2 dressing applied. Administered Medications: 16:14 Drug: NS 0.9% 1000 ml Route: IV; Rate: 1000 ml; Site: right hand; mg2 17:51 Follow up: Response: No adverse reaction; IV Status: Completed infusion mg2 Outcome: 17:25 Discharge ordered by . jr8 17:58 Discharged to home ambulatory, with family. mg2 17:58 Condition: stable 17:58 Discharge instructions given to patient, family, Instructed on discharge instructions, follow up and referral plans. Demonstrated understanding of instructions, follow-up care. 17:58 Patient left the ED. mg2 Signatures: Dispatcher [employer] EDFL Beverley Mays, MERRICK SIN Omayra Thakkar Melissa ml Roszak, Josh, PA PA jr8 Rafi Cooney, MERRICK SIN [facility] Sujatha Bhandari 3 Katerina George 1 Corrections: (The following items were deleted from the chart) 14:57 14:54 Presenting complaint: Patient states: Nasal congestion for a week, now I feel ch like I cannot catch my breath. as well yesterday I went poop and there was a lot of blood in it. that happens periodically. 18:35 17:56 Reassessment: pls see triage assessment mg2 mg2
[2018-10-08 18:03] VITALS: TEMP 98.2
[2018-10-08 18:05] VITALS: BP 121/85
[2018-10-08 18:06] VITALS: O2SAT 100
[2018-10-08 19:28] LABS: Blood Morphology Comment NOT SEEN (NOT SEEN); Platelet Estimate ADEQ; Urine White Blood Cell Casts OK
--- NOTE | 2018-10-08 21:15 | EKG ---
Test Date: 2018-10-08 Test Time: 16:13:29 Information Technology Manager: PUJA MEASUREMENT RESULTS: Intervals: Rate: 60 PA: 154 QRSD: 84 QT: 464 QTc: 464 Cochran: P: 51 PA: 154 QRS: 42 T: 5 INTERPRETIVE STATEMENTS: Normal sinus rhythm Cannot rule out Inferior infarct, age undetermined abnormal ECG Compared to ECG 08/22/2018 16:33:36 Myocardial infarct finding now present Electronically Signed On 10-08-18 21:14:58 CDT by Benjamín Mendoza
== END 2018-10-08 17:58 | disposition home or self-care (01) ==
LOC: ER 14:14
DX: T50.905A Adverse effect of unspecified drugs, medicaments and biological substances, initial encounter (principal); J45.909 Unspecified asthma, uncomplicated; E11.9 Type 2 diabetes mellitus without complications; I10 Essential (primary) hypertension; G40.909 Epilepsy, unspecified, not intractable, without status epilepticus; Z79.4 Long term (current) use of insulin; Z79.51 Long term (current) use of inhaled steroids; Z88.6 Allergy status to analgesic agent; Z88.5 Allergy status to narcotic agent; Z88.0 Allergy status to penicillin; Z91.013 Allergy to seafood; Z88.8 Allergy status to other drugs, medicaments and biological substances; Z91.018 Allergy to other foods
CPT/HCPCS: 36415; 71045; 80048; 80076; 83735; 83880; 84484; 85025; 85610; 93005; 96360; 96361; 99284; J7030

== ENCOUNTER 2018-10-17 16:13 | Emergency (ER) | payer SELFPAY ==
--- OUTSIDE RECORDS SUMMARY | 2018-10-17 16:16 | XMS REPORT | Clinical Summary ---
:1975 Author Organization [facility] Address [address] [place] [address] Care Team Providers Name Role Phone Lubna Hunt [facility] Primary Care Provider Allergies Active Allergy Reactions Severity Noted Date Comments Aspirin Anaphylaxis High 11/13/2017 Coconut 10/15/2018 Diazepam Anaphylaxis High 11/13/2017 Iodine Anaphylaxis High 11/13/2017 Morphine 10/15/2018 cp Penicillin Anaphylaxis High 11/13/2017 Shrimp 10/15/2018 Ondansetron Hcl (Pf) Anaphylaxis High 11/13/2017 Medications Medication Sig Dispensed Refills Start Date End Date Status gabapentin (NEURONTIN) 3 (three) times 0 07/26/2017 Active 600 MG tablet daily. insulin 70/30, insulin 12 units TID 0 07/26/2015 Active NPH-insulin regular, (HUMULIN 70/30 U-100 KWIKPEN) 100 unit/mL (70-30) InPn insulin pen levETIRAcetam (KEPPRA) TAKE TWO (2) 3 09/23/2018 Active 500 MG tablet TABLET(S) BY MOUTH EVERY TWELVE HOURS. lisinopril TAKE ONE (1) 1 09/23/2018 Active (PRINIVIL,ZESTRIL) 10 MG TABLET(S) BY tablet MOUTH ONCE A DAY. lisinopril-hydroCHLOROth Take 1 tablet by 0 Active iazide mouth daily. (PRINZIDE,ZESTORETIC) 20-25 mg per tablet Active Problems Not on file Encounters Date Type Specialty Care Team Description 10/15/2018 Emergency Emergency Medicine Bird Conte Syncope, unspecified MD Mohan syncope type (Primary Dx) 10/15/2018 Orders Only General Internal Medicine 10/15/2018 Travel after 10/16/2017 Social History Tobacco Use Types Packs/Day Years Used Date Never Smoker Smokeless Tobacco: Never Used Alcohol Use Drinks/Week oz/Week Comments No Alcohol Habits Answer Date Recorded How often do you have a drink containing alcohol? Never 10/15/2018 How many drinks containing alcohol do you have on a typical Not asked day when you are drinking? How often do you have six or more drinks on one occasion? Not asked Sex Assigned at Date Recorded Not on file Job Start Date Occupation Industry Not on file Not on file Not on file Travel History Travel Start Travel End No recent travel history available. Last Filed Vital Signs Vital Sign Reading Time Taken Blood Pressure 105/74 10/15/2018 3:35 PM CDT Pulse 74 10/15/2018 3:35 PM CDT Temperature 36.6 C (97.9 F) 10/15/2018 3:35 PM CDT Respiratory Rate 14 10/15/2018 3:35 PM CDT Oxygen Saturation 98% 10/15/2018 3:35 PM CDT Inhaled Oxygen Concentration - - Weight 96.2 kg (212 lb) 10/15/2018 11:20 AM CDT Height 152.4 cm (5') 10/15/2018 11:20 AM CDT Body Mass Index 41.4 10/15/2018 11:20 AM CDT Plan of Treatment Not on file Procedures Procedure Name Priority Date/Time Associated Comments Diagnosis XR CHEST 1 VIEW STAT 10/15/2018 1:13 Results for this PORTABLE/BEDSIDE PM CDT procedure are in the results section. CBC W/PLT COUNT & AUTO STAT 10/15/2018 12:59 Results for this DIFFERENTIAL PM CDT procedure are in the results section. MAGNESIUM STAT 10/15/2018 12:59 Results for this PM CDT procedure are in the results section. B-TYPE NATRIURETIC STAT 10/15/2018 12:59 Results for this FACTOR (BNP) PM CDT procedure are in the results section. TROPONIN I STAT 10/15/2018 12:59 Results for this PM CDT procedure are in the results section. COMPREHENSIVE STAT 10/15/2018 12:59 Results for this METABOLIC PANEL PM CDT procedure are in the results section. CBC W/PLT COUNT & AUTO STAT 10/15/2018 12:59 Results for this DIFFERENTIAL PM CDT procedure are in the results section. SCREEN, STAT 10/15/2018 12:56 Results for this URINE PM CDT procedure are in the results section. URINALYSIS WITH STAT 10/15/2018 12:56 Results for this MICROSCOPIC IF PM CDT procedure are in INDICATED the results section. ECG 12-LEAD Routine 10/15/2018 11:22 AM CDT Procedure Note - Interface, External Ris In - 10/15/2018 6:11 PM CDT Ventricular Rate 73 BPM Atrial Rate 73 BPM P-R Interval 150 ms QRS Duration 84 ms Q-T Interval 398 ms QTC Calculation(Bazett) 438 ms P [place] 56 degrees R [place] 31 degrees T [place] 40 degrees Normal sinus rhythm Normal ECG No previous ECGs available ECG 12-LEAD STAT 10/15/2018 11:22 AM CDT after 10/16/2017 Results XR chest 1 view portable / bedside (10/15/2018 1:13 PM CDT) Narrative Performed At FINAL REPORT [facility] Chest, AP view. History: Chest pain. Comparison: None available. Discussion:The cardiomediastinal silhouette and pulmonary vasculature are within normal limits. The lungs are clear without evidence of consolidation or effusion.There are no acute osseous abnormalities. The soft tissues are unremarkable. IMPRESSION: No acute cardiopulmonary abnormality. Signed: Kirstie Ozuna MD Report Verified Date/Time:10/15/2018 13:46:07 Reading Location: [facility] [place] Procedure Note Interface, External Ris In - 10/15/2018 1:51 PM CDT FINAL REPORT Chest, AP view. History: Chest pain. Comparison: None available. Discussion: The cardiomediastinal silhouette and pulmonary vasculature are within normal limits. The lungs are clear without evidence of consolidation or effusion. There are no acute osseous abnormalities. The soft tissues are unremarkable. IMPRESSION: No acute cardiopulmonary abnormality. Signed: Kirstie Ozuna MD Report Verified Date/Time: 10/15/2018 13:46:07 Reading Location: [facility] Performing Organization Address City/State/Zipcode Phone Number [facility] CBC with platelet count + automated diff (10/15/2018 12:59 PM CDT) WBC 6.4 3.5 - 10.5 K/L [facility] RBC 4.76 3.93 - 5.22 M/L [facility] Hemoglobin 14.2 11.2 - 15.7 GM/DL [facility] Hematocrit 42.4 34.1 - 44.9 % [facility] MCV 89.1 79.4 - 94.8 fL [facility] MCH 29.8 25.6 - 32.2 pg [facility] MCHC 33.5 32.2 - 35.5 GM/DL [facility] RDW 12.0 11.7 - 14.4 % [facility] Platelets 305 150 - 450 K/CU MM [facility] MPV 9.3 (L) 9.4 - 12.3 fL [facility] nRBC 0 0 - 0 /100 WBC [facility] % Neutros 57 % [facility] % Lymphs 33 % [facility] % Monos 8 % [facility] % Eos 2 % [facility] % Baso 1 % [facility] # Neutros 3.60 1.56 - 6.13 K/L [facility] # Lymphs 2.10 1.18 - 3.74 K/L [facility] # Monos 0.48 (H) 0.24 - 0.36 K/L [facility] # Eos 0.13 0.04 - 0.36 K/L [facility] # Baso 0.04 0.01 - 0.08 K/L [facility] Immature Granulocytes-Relative 0 0 - 1 % [facility] Specimen Blood - Arm, Left Performing Organization Address City/State/Zipcode Phone Number [facility] [address] [address] CENTER Troponin I (10/15/2018 12:59 PM CDT) Troponin I <0.01 0.00 - 0.03 ng/mL [facility] Specimen Blood - Arm, Left Narrative Performed At Troponin I (TnI) levels must be interpreted [facility] in the context of the presenting symptoms and the clinical findings. Elevated TnI levels indicate myocardial damage, but are not specific for ischemic heart disease. Elevated TnI levels are seen in patients with other cardiac conditions (including myocarditis and congestive heart failure), and slight TnI elevations occur in patients with other conditions, including sepsis, renal failure, acidosis, acute neurological disease, and persistent tachyarrhythmia. Performing Organization Address City/State/[facility] Phone Number [address] [address] CENTER B-type Natriuretic Factor (BNP) (10/15/2018 12:59 PM CDT) BNP <10 0 - 100 pg/mL [facility] Specimen Blood - Arm, Left Performing Organization Address [facility] Phone Number [address] [address] [phone] CENTER Magnesium (10/15/2018 12:59 PM CDT) Magnesium 1.9 1.6 - 2.6 mg/dL [facility] Specimen Blood - Arm, Left Performing Organization Address [facility] Phone Number [address] [address] CENTER Comprehensive metabolic panel (10/15/2018 12:59 PM CDT) Protein, Total 7.7 6.0 - 8.3 gm/dL [facility] Albumin 4.3 3.5 - 5.0 g/dL [facility] Alkaline Phosphatase 78 40 - 150 U/L [facility] Total Bilirubin 0.2 0.2 - 1.2 mg/dL [facility] Sodium 140 136 - 145 meq/L [facility] Potassium 3.7 3.5 - 5.1 meq/L [facility] Chloride 105 98 - 107 meq/L [facility] CO2 23 22 - 29 meq/L [facility] BUN 17 7 - 21 mg/dL [facility] Creatinine 0.78 0.57 - 1.25 mg/dL [facility] Glucose 94 70 - 105 mg/dL [facility] Calcium 10.3 (H) 8.4 - 10.2 mg/dL [facility] AST 19 5 - 34 U/L [facility] ALT 24 6 - 55 U/L [facility] EGFR 80Comment: INSUFFICIENT mL/min/1.73 sq m [facility] CLINICAL DATA TO [facility] CALCULATE ESTIMATED GFR. Specimen Blood - Arm, Left Performing Organization Address City/State/Zipcode Phone Number [facility] [address] [place] [address] [phone] CENTER Urinalysis with Microscopic If Indicated (10/15/2018 12:56 PM CDT) Color, UA Colorless [facility] Clarity, UA Clear [facility] Specific [place], UA 1.003 1.001 - 1.035 [facility] pH, UA 5.5 5.0 - 8.0 [facility] Protein, UA Negative Negative [facility] Glucose, UA Negative Negative [facility] Ketones, UA Negative Negative [facility] Bilirubin, UA Negative Negative [facility] Blood, UA Negative Negative [facility] Nitrite, UA Negative Negative [facility] Leukocytes, UA Negative Negative [facility] Urobilinogen, UA 0.2 0.2 - 1.0 mg/dL [facility] Specimen Source [facility] Specimen Urine - Urine, Clean Catch Performing Organization Address City/[facility] Phone Number [facility] [address] [place] [address] [phone] [place] Screen, urine (10/15/2018 12:56 PM CDT) Preg Test, Ur Negative [facility] Specimen Urine - Urine, Clean Catch Performing Organization Address [facility] Phone Number [facility] [address] [place] [address] [place] ECG 12 lead (10/15/2018 11:22 AM CDT) Narrative Performed At Ventricular Rate 73 BPM GE MUSE Atrial Rate 73 BPM P-R Interval 150 ms QRS Duration 84 ms Q-T Interval 398 ms QTC Calculation(Bazett) 438 ms P [place] 56 degrees R [place] 31 degrees T [place] 40 degrees Normal sinus rhythm Normal ECG No previous ECGs available Confirmed by MD Pineda Roberto ([id number]) on 10/16/2018 4:27:06 PM Procedure Note Interface, External Ris In - 10/16/2018 4:27 PM CDT Ventricular Rate 73 BPM Atrial Rate 73 BPM P-R Interval 150 ms QRS Duration 84 ms Q-T Interval 398 ms QTC Calculation(Bazett) 438 ms P [place] 56 degrees R [place] 31 degrees T [place] 40 degrees Normal sinus rhythm Normal ECG No previous ECGs available Confirmed by MD Pineda Roberto ([id number]) on 10/16/2018 4:27:06 PM Performing Organization Address City/[facility] Phone Number GE MUSE after 10/16/2017
--- OUTSIDE RECORDS SUMMARY | 2018-10-17 16:16 | XMS REPORT ---
:1975 [facility] Address [address] [place] [address] Care Team Providers Name Role Phone KALEE SANCHEZ Unavailable Unavailable Problems This patient has no known problems. Allergies, Adverse Reactions, Alerts This patient has no known allergies or adverse reactions. Medications This patient has no known medications. Results Test Description Test Time Test Comments Text Results Atomic Results Result Comments SCREEN, URINE 2018-10-15 15:27:00 Test Item Value Reference Range Comments TEST URINE (BEAKER) (test uafu=627) Negative URINALYSIS WITH MICROSCOPIC IF [id number] 14:55:00 Test Item Value Reference Range Comments COLOR (BEAKER) (test sykl=178) Colorless CLARITY (BEAKER) (test zxat=113) Clear SPECIFIC GRAVITY UA (BEAKER) (test bpru=622) 1.003 1.001-1.035 PH UA (BEAKER) (test cwny=446) 5.5 5.0-8.0 PROTEIN UA (BEAKER) (test dlub=960) Negative Negative GLUCOSE UA (BEAKER) (test jjlz=436) Negative Negative KETONES UA (BEAKER) (test ylzs=162) Negative Negative BILIRUBIN UA (BEAKER) (test ruau=344) Negative Negative BLOOD UA (BEAKER) (test btli=886) Negative Negative NITRITE UA (BEAKER) (test cakx=255) Negative Negative LEUKOCYTE ESTERASE UA (BEAKER) (test xfzm=480) Negative Negative UROBILINOGEN UA (BEAKER) (test opod=174) 0.2 mg/dL 0.2-1.0 SOURCE(BEAKER) (test iqur=4257) RAD, CHEST, 1 VIEW, NON [id number] 13:46:00Reason for exam:->chest painIs the patient ?->UnknownShould this be performed at the bedside? ->YesFINAL REPORT Chest, AP view. History: Chest pain. Comparison: None available. Discussion: The cardiomediastinal silhouette and pulmonary vasculature are within normal limits. The lungs are clear without evidence of consolidation or effusion. There are no acute osseous abnormalities. The soft tissues are unremarkable. IMPRESSION: No acute cardiopulmonary abnormality. Signed: Kirstie Ozuna MDReport Verified Date/Time : 10/15/2018 13:46:07 Reading Location: [facility] B-TYPE NATRIURETIC FACTOR ( BNP)2018-10-15 13:45:00 Test Item Value Reference Range Comments B-TYPE NATRIURETIC PEPTIDE (BEAKER) (test bvdy=182) < pg/mL 0-100 TROPONIN [id number] 13:42:00 Test Item Value Reference Range Comments TROPONIN I (BEAKER) (test flzn=416) < ng/mL 0.00-0.03 Troponin I (TnI) levels must be interpreted in the context of the presenting symptoms and the clinical findings. Elevated TnI levels indicate myocardial damage, but are not specific for ischemic heart disease. Elevated TnI levels are seen in patients with other cardiac conditions (including myocarditis and congestive heart failure), and slight TnI elevations occur in patients with other conditions, including sepsis, renal failure, acidosis, acute neurological disease, and persistent tachyarrhythmia.[id number] 13:36:00 Test Item Value Reference Range Comments MAGNESIUM (BEAKER) (test hkmh=048) 1.9 mg/dL 1.6-2.6 COMPREHENSIVE METABOLIC [id number] 13:36:00 Test Item Value Reference Range Comments TOTAL PROTEIN (BEAKER) 7.7 gm/dL 6.0-8.3 (test evra=545) ALBUMIN (BEAKER) (test 4.3 g/dL 3.5-5.0 ocsy=5968) ALKALINE PHOSPHATASE 78 U/L 40-150 (BEAKER) (test rcfa=770) BILIRUBIN TOTAL (BEAKER) 0.2 mg/dL 0.2-1.2 (test oqcs=660) SODIUM (BEAKER) (test 140 meq/L 136-145 mbsf=748) POTASSIUM (BEAKER) (test 3.7 meq/L 3.5-5.1 ezsi=387) CHLORIDE (BEAKER) (test 105 meq/L 98-107 bvfg=829) CO2 (BEAKER) (test 23 meq/L 22-29 ronr=338) BLOOD UREA NITROGEN 17 mg/dL 7-21 (BEAKER) (test nexp=247) CREATININE (BEAKER) (test 0.78 mg/dL 0.57-1.25 qtbj=666) GLUCOSE RANDOM (BEAKER) 94 mg/dL 70-105 (test orlu=600) CALCIUM (BEAKER) (test 10.3 mg/dL 8.4-10.2 dkmb=700) AST (SGOT) (BEAKER) (test 19 U/L 5-34 vwyx=276) ALT (SGPT) (BEAKER) (test 24 U/L 6-55 oegn=769) EGFR (BEAKER) (test 80 mL/min/1.73 sq m INSUFFICIENT CLINICAL uzxb=9552) DATA TO CALCULATE ESTIMATED GFR. CBC W/PLT COUNT & AUTO [id number] 13:09:00 Test Item Value Reference Range Comments WHITE BLOOD CELL COUNT (BEAKER) (test dqts=393) 6.4 K/ L 3.5-10.5 RED BLOOD CELL COUNT (BEAKER) (test ikyy=018) 4.76 M/ L 3.93-5.22 HEMOGLOBIN (BEAKER) (test oidz=801) 14.2 GM/DL 11.2-15.7 HEMATOCRIT (BEAKER) (test irdc=343) 42.4 % 34.1-44.9 MEAN CORPUSCULAR VOLUME (BEAKER) (test uled=111) 89.1 fL 79.4-94.8 MEAN CORPUSCULAR HEMOGLOBIN (BEAKER) (test 29.8 pg 25.6-32.2 hnzi=909) MEAN CORPUSCULAR HEMOGLOBIN CONC (BEAKER) (test 33.5 GM/DL 32.2-35.5 thmx=315) RED CELL DISTRIBUTION WIDTH (BEAKER) (test 12.0 % 11.7-14.4 vxsz=593) PLATELET COUNT (BEAKER) (test cobh=066) 305 K/CU MM 150-450 MEAN PLATELET VOLUME (BEAKER) (test wkjz=431) 9.3 fL 9.4-12.3 NUCLEATED RED BLOOD CELLS (BEAKER) (test 0 /100 WBC 0-0 jdqi=148) NEUTROPHILS RELATIVE PERCENT (BEAKER) (test 57 % hazr=344) LYMPHOCYTES RELATIVE PERCENT (BEAKER) (test 33 % hwud=433) MONOCYTES RELATIVE PERCENT (BEAKER) (test 8 % vckw=998) EOSINOPHILS RELATIVE PERCENT (BEAKER) (test 2 % dlkd=752) BASOPHILS RELATIVE PERCENT (BEAKER) (test 1 % tmkq=604) NEUTROPHILS ABSOLUTE COUNT (BEAKER) (test 3.60 K/ L 1.56-6.13 kowt=703) LYMPHOCYTES ABSOLUTE COUNT (BEAKER) (test 2.10 K/ L 1.18-3.74 mdzc=394) MONOCYTES ABSOLUTE COUNT (BEAKER) (test 0.48 K/ L 0.24-0.36 prtm=544) EOSINOPHILS ABSOLUTE COUNT (BEAKER) (test 0.13 K/ L 0.04-0.36 vsky=788) BASOPHILS ABSOLUTE COUNT (BEAKER) (test 0.04 K/ L 0.01-0.08 slqs=657) IMMATURE GRANULOCYTES-RELATIVE PERCENT (BEAKER) 0 % 0-1 (test hjcy=5101)
--- OUTSIDE RECORDS SUMMARY | 2018-10-17 16:16 | XMS REPORT ---
[...] Status Dosage System Date Date ProAir HFA [facility] [id number] 108 (90 Base) Jul 26, Active 2 puffs as MCG/ACT 2018 needed Inhalation every 6 hrs Keppra ND 60635777058 500 MG Orally Aug 17, Active 2 tablets every 12 hrs 2018 HumuLIN 70/30 ND 89972373580 (70-30) 100 Jul 26, Active 10 units KwikPen UNIT/ML 2016 Subcutaneous bid Flonase ND 81579886413 50 MCG/ACT Jul 26, Active 2 spray in Nasally Once a 2017 each day nostril Bentyl ND 73514683260 20 MG Orally November 21, Active 1 tablet Four times a 2018 day Gabapentin ND 76958952905 300 MG Orally Jul 26, Active 2 capsule Three times a 2018 before day bedtime Zestoretic ND 11181171234 20-25 MG Orally Jul 26, Active 1 tablet Once a day 2016 Promethazine HCl ND 96762200921 50 MG Orally November 21, Active 1 tablet every 6 hrs 2016 as needed Tylenol # 3 NDC 0 300/30mg PO November 21, Active 1-2 tabs every 6 hrs. 2018 Results Name Result Date Reference Range Unit Abnormality Flag URINALYSIS AUTO W/O SCOPE (32985) ----NIT N [id number] ----URO 0.2 20171113 ----PROTEIN 1+ 20171113 ----pH 5.5 20171113 ----BLO N 20171113 ----GLUCOSE N 20171113 ----ALBERTO N 20171113 ----BILIRUBIN 1+ 20171113 ----KETONES N 20171113 ----SPECIFIC GRAVITY >=1.030 20171113 Summary Purpose eClinicalWorks Submission
--- OUTSIDE RECORDS SUMMARY | 2018-10-17 16:17 | XMS REPORT ---
[...] Status Dosage System Date Date Flonase [facility] [id number] 50 MCG/ACT Jul 26, Active 2 spray in Nasally Once a 2017 each day nostril ProAir HFA [facility] 08497108048 108 (90 Base) Jul 26, Active 2 puffs as MCG/ACT 2018 needed Inhalation every 6 hrs Tylenol # 3 NDC 0 300/30mg PO November 21, Active 1-2 tabs every 6 hrs. 2018 Levaquin ND 54269288748 500 MG Orally Active 1 tablet Once a day Gabapentin ND 10607338406 600 MG Orally Jul 26, Active 1 capsule Three times a 2018 day Zestoretic ND 41088955159 20-25 MG Orally Jul 26, Active 1 tablet Once a day 2016 Keppra ND 59001402015 500 MG Orally Active take two Twice a day -2 tablet(s) by mouth twice a day. Tramadol HCl ND 53685284155 50 MG Orally Active 1 tablet every 6 hrs as needed Promethazine HCl ND 41895684916 50 MG Orally November 21, Active 1 tablet every 6 hrs 2016 as needed Bentyl ND 93781595173 20 MG Orally November 21, Active 1 tablet Four times a 2018 day HumuLIN 70/30 ND 54816200883 (70-30) 100 Jul 26, Active 10 units KwikPen UNIT/ML 2016 Subcutaneous bid Results No Known Results Summary Purpose eClinicalWorks Submission
--- OUTSIDE RECORDS SUMMARY | 2018-10-17 16:17 | XMS REPORT ---
[...] Medications Results No Known Results Summary Purpose [employer] Submission
--- OUTSIDE RECORDS SUMMARY | 2018-10-17 16:17 | XMS REPORT ---
[...] Status Dosage System Date Date Bentyl ND 77485173194 20 MG Orally November 21, Active 1 tablet Four times a 2018 day Tylenol # 3 NDC 0 300/30mg PO November 21, Active 1-2 tabs every 6 hrs. 2018 Flonase ND 98531767679 50 MCG/ACT Jul 26, Active 2 spray in Nasally Once a 2018 each day nostril Promethazine HCl ND 00877561552 50 MG Orally November 21, Active 1 tablet every 6 hrs 2016 as needed Gabapentin ND 13099328428 600 MG Orally Jul 26, Active 1 capsule Three times a 2018 day ProAir HFA ND 82584095486 108 (90 Base) Jul 26, Active 2 puffs as MCG/ACT 2018 needed Inhalation every 6 hrs Keppra ND 55669638497 500 MG Orally Active take two Twice a day -2 tablet(s) by mouth twice a day. Zestoretic ND 34290129427 20-25 MG Orally Jul 26, Active 1 tablet Once a day 2015 HumuLIN 70/30 ND 51969547734 (70-30) 100 Jul 26, Active 10 units KwikPen UNIT/ML 2016 Subcutaneous bid Results Name Result Date Reference Range Unit Abnormality Flag URINALYSIS AUTO W/O SCOPE (14325) ----NIT N [id number] ----URO 1.0 [id number] ----PROTEIN TR [id number] ----pH 5.5 20180219 ----BLO N [id number] ----GLUCOSE N [id number] ----ALBERTO N [id number] ----BILIRUBIN N [id number] ----KETONES N [id number] ----SPECIFIC GRAVITY 1.025 [id number] Summary Purpose eClinicalWorks Submission
--- OUTSIDE RECORDS SUMMARY | 2018-10-17 16:17 | XMS REPORT ---
[...] Status Dosage System Date Date ProAir HFA [facility] [id number] 108 (90 Base) Jul 26, Active 2 puffs as MCG/ACT 2018 needed Inhalation every 6 hrs Gabapentin ND 48203507465 600 MG Orally Jul 26, Active 1 capsule Three times a 2018 day Keppra [facility] 16933077510 500 MG Active TAKE TWO (2) TABLET(S) BY MOUTH TWICE A DAY. Zestoretic [facility] 61406382499 20-25 MG Orally Jul 26, Active 1 tablet Once a day 2015 HumuLIN 70/30 [facility] 28469824119 (70-30) 100 Jul 26, Active 10 units KwikPen UNIT/ML 2016 Subcutaneous bid Flonase ND 90260346555 50 MCG/ACT Jul 26, Active 2 spray in Nasally Once a 2017 each day nostril Tramadol HCl ND 40748615473 50 MG Orally Active 1 tablet every 6 hrs as needed Levaquin ND 17324263951 500 MG Orally Active 1 tablet Once a day Lisinopril ND 82677865113 10 MG Orally Sep 09, Active 1 tablet Once a day 2018 Bentyl [facility] 03505312246 20 MG Orally November 21, Active 1 tablet Four times a day 2017 Results No Known Results Summary Purpose eClinicalWorks Submission
--- OUTSIDE RECORDS SUMMARY | 2018-10-17 16:17 | XMS REPORT ---
[...] Status Dosage System Date Date HumuLIN 70/30 [facility] [id number] (70-30) 100 Jul 26, Active 10 units KwikPen UNIT/ML 2016 Subcutaneous bid ProAir HFA [facility] [id number] 108 (90 Base) Jul 26, Active 2 puffs as MCG/ACT 2018 needed Inhalation every 6 hrs Keppra [facility] [id number] 500 MG Orally Active take two Twice a day -2 tablet(s) by mouth twice a day. Gabapentin ND [id number] 600 MG Orally Jul 26, Active 1 capsule Three times a 2018 day Zestoretic ND 02119049053 20-25 MG Orally Jul 26, Active 1 tablet Once a day 2015 Bentyl ND 37492902484 20 MG Orally November 21, Active 1 tablet Four times a 2018 day Tylenol # 3 NDC 0 300/30mg PO November 21, Active 1-2 tabs every 6 hrs. 2018 Promethazine HCl ND 91769044549 50 MG Orally November 21, Active 1 tablet every 6 hrs 2016 as needed Flonase NDC [id number] 50 MCG/ACT Jul 26, Active 2 spray in Nasally Once a 2018 each day nostril Results No Known Results Summary Purpose eClinicalWorks Submission
[2018-10-17] MEDS ORDERED: NA CHLORIDE 0.9% 1,000 ML ONE (16:50)
[2018-10-17 17:09] LABS: Absolute Monocytes 0.6 K/uL (0.1-1.3); Absolute Neutrophil 3.7 K/uL (1.8-8.0); Basophils % 1.1 % (0-1.3); Eosinophils % 2.1 % (0-4.4); Lymphocytes % 30.7 % (15.3-44.8); MPV 7.8 fL (7.6-11.3); Monocytes % 9.4 % (3.3-12.3); RBC Red Blood Cell Count 4.75 M/uL (3.86-4.86)
[2018-10-17 17:23] LABS: BUN Blood Urea Nitrogen 13 mg/dL (7-18); Bicarbonate 28 mmol/L (21-32); Glucose Level 90 mg/dL (74-106); Potassium 3.6 mmol/L (3.5-5.1); Sodium Level 142 mmol/L (136-145); Troponin (Emerg Dept Use Only) < 0.02 ng/mL (0.0-0.045)
--- NOTE | 2018-10-17 17:32 | RAD REPORT ---
EXAM DESCRIPTION: CT - CTHCSPWOC - 10/17/2018 5:21 pm CLINICAL HISTORY: Fall, head and neck injury, LOC COMPARISON: CT cervical June 2018 TECHNIQUE: Axial 5 mm thick images of the head were obtained. Axial 2 mm thick images of the cervic al spine were obtained with sagittal and coronal reconstruction images generated and reviewed. All CT scans are performed using dose optimization technique as appropriate and may include automated exposure control or mA/KV adjustment according to patient size. FINDINGS: No intracranial hemorrhage, mass, edema or acute intracranial finding. No suspicion for ac [place] infarction. No extra-axial fluid collections. Mastoid air cells and paranasal sinuses are clear. No globe or orbit abnormality seen. Cervical body height and alignment are normal. No disk space narrowing. No fracture or acute bony abn ormality. No paraspinal mass or hematoma. IMPRESSION: Negative CT head examination for acute or significant finding. Negative CT cervical spine examination for acute or significant finding.
--- NOTE | 2018-10-17 18:18 | EDPHYS ---
Physician Documentation [facility] Name: Britt Bower Age: 43 yrs Sex: Female : 1975 Arrival Date: 10/17/2018 Time: 16:17 Bed 26 Private MD: CHARISSE CORDOBA ED Physician Mono Jordan HPI: 10/17 16:40 This 43 yrs old Female presents to ER via Ambulatory with complaints of rn Passed Out Prior To Arrival. 16:40 The patient or guardian reports injury, swelling. The complaints affect the forehead. rn Onset: The symptoms/episode began/occurred 1 hour(s) ago. Severity of symptoms:. The patient has experienced similar episodes in the past. REports in shower, fell, unsure if passed out prior to hitting her head but hit her head on faucet, states turned pale, no seizure like activity, slow to snap out of it, but now back to baseline. Reports mild headache. Seen recently for low blood pressure, attributed to medication, for last 3 days has taken less BP meds. Prior to getting into shower felt fine. No vomiting/diarrhea/chest pain/sob. Right now feels generalized weakness. . 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 lmp unknown mg2 Historical: - Allergies: 16:29 Amoxicillin; la1 16:29 Aspirin; la1 16:29 Coconut; la1 16:29 diazepam; la1 16:29 Iodine; la1 16:29 Morphine; la1 16:29 Ondansetron HCl; la1 16:29 PENICILLINS; la1 16:29 Piperacillin Sodium; la1 16:29 shrimp; la1 16:29 tazobactam sodium; la1 16:29 Zofran; la1 - Home Meds: 16:32 albuterol sulfate 90 mcg/actuation Inhl HFAA [Active]; flonace 2 puffs/day daily mg2 [Active]; gabapentin 600 mg Oral tab 1 tab 3 times per day for Neuropathic Pain [Active]; Humulin 70/30 100 unit/mL (70-30) Sub-Q tab 5 units twice a day for Type 2 Diabetes Mellitus [Active]; levetiracetam 500 mg Oral tab 2 tabs 2 times per day for Tonic-Clonic Epilepsy Treatment Adjunct [Active]; lisinopril-hydrochlorothiazide 20-25 mg Oral tab 1 tab once daily for Hypertension [Active]; - PMHx: 16:29 Asthma; Diabetes - IDDM; epilepsy; history of stroke; Hypertension; neuropathy; la1 - Immunization history:: Adult Immunizations up to date. - Social history:: Smoking status: Patient/guardian denies using tobacco. - Ebola Screening: : No symptoms or risks identified at this time. - Family history:: not pertinent. - Hospitalizations: : No recent hospitalization is reported. ROS: 16:40 Constitutional: Negative for fever, chills, and weight loss, Eyes: Negative for injury, rn pain, redness, and discharge, Neck: Mild neck soreness Cardiovascular: Negative for chest pain, palpitations, and edema, Respiratory: Negative for shortness of breath, cough, wheezing, and pleuritic chest pain, Abdomen/GI: Negative for abdominal pain, nausea, vomiting, diarrhea, and constipation, MS/Extremity: Negative for injury and deformity, Skin: Negative for injury, rash, and discoloration, Neuro: + headache, no seizure, no focal weakness/numbness Exam: 16:40 Constitutional: This is a well developed, well nourished patient who is awake, alert, rn and in no acute distress. Head/Face: Normocephalic, + hematoma left forehead Eyes: Pupils equal round and reactive to light, extra-ocular motions intact. Lids and lashes normal. Conjunctiva and sclera are non-icteric and not injected. Cornea within normal limits. Periorbital areas with no swelling, redness, or edema. Neck: Trachea midline, no thyromegaly or masses palpated, and no cervical lymphadenopathy. Supple, full range of motion without nuchal rigidity, or vertebral point tenderness. No Meningismus. Respiratory: No increased work of breathing, no retractions or nasal flaring. Abdomen/GI: soft, non-tender Skin: Warm, dry MS/ Extremity: Pulses equal, no cyanosis. Neurovascular intact. Full, normal range of motion. Equal circumference. Neuro: Awake and alert, GCS 15, oriented to person, place, time, and situation. Cranial nerves II-XII grossly intact. Motor strength 5/5 in all extremities. Sensory grossly intact. Cerebellar exam normal. 16:40 ECG was reviewed by the Attending Physician. Vital Signs: 16:27 BP 115 / 82; Pulse 62; Resp 18; Temp 99.8; Pulse Ox 98% on R/A; Weight 96.62 kg; Height mg2 5 ft. 0 in. (152.40 cm); Pain 0/10; 18:43 BP 113 / 67; Pulse 70; Resp 18; Pulse Ox 100% on R/A; Pain 0/10; mg2 16:27 Body Mass Index 41.60 (96.62 kg, 152.40 cm) mg2 [place] Coma Score: 16:40 Eye Response: spontaneous(4). Verbal Response: oriented(5). Motor Response: obeys rn commands(6). Total: 15. 18:16 Eye Response: spontaneous(4). Verbal Response: oriented(5). Motor Response: obeys rn commands(6). Total: 15. MDM: 16:22 Patient medically screened. rn 18:16 Differential diagnosis: Contusion of Hematoma on Intracranial bleed- Concussion rn seizure, syncope. Data reviewed: vital signs, nurses notes, lab test result(s), EKG, radiologic studies, CT scan, and as a result, I will discharge patient. Counseling: I had a detailed discussion with the patient and/or guardian regarding: the historical points, exam findings, and any diagnostic results supporting the discharge/admit diagnosis, lab results, radiology results, the need for outpatient follow up, to return to the emergency department if symptoms worsen or persist or if there are any questions or concerns that arise at home. Response to treatment: the patient's condition has returned to base line, and as a result, I will discharge patient. Special discussion: I discussed with the patient/guardian in detail that at this point there is no indication for admission to the hospital. It is understood, however, that if the symptoms persist or worsen the patient needs to return immediately for re-evaluation. Based on the history and exam findings, there is no indication for further emergent testing or inpatient evaluation. I discussed with the patient/guardian the need to see the neurologist for further evaluation of the symptoms. I discussed with the patient/guardian the need to see the primary care provider for further evaluation of the symptoms. 10/17 16:34 Order name: Basic Metabolic Panel; Complete Time: 17:27 rn 10/17 16:34 Order name: CBC with Diff; Complete Time: 17: rn 10/17 16:34 Order name: CT Head C Spine; Complete Time: 17:53 rn 10/17 16:34 Order name: Troponin (emerg Dept Use Only); Complete Time: 17:27 rn 10/17 18:09 Order name: Urine Dipstick--Ancillary (enter results); Complete Time: 18:41 eb 10/17 18:09 Order name: Urine --Ancillary (enter results); Complete Time: 18:41 eb 10/17 16:34 Order name: Cardiac monitoring; Complete Time: 16:59 rn 10/17 16:34 Order name: EKG - Nurse/Tech; Complete Time: 16:59 rn 10/17 16:34 Order name: IV Saline Lock; Complete Time: 16:59 rn 10/17 16:34 Order name: Labs collected and sent; Complete Time: 16:59 rn 10/17 16:34 Order name: NPO; Complete Time: 16:59 rn 10/17 16:34 Order name: O2 Per Protocol; Complete Time: 16:59 rn 10/17 16:34 Order name: O2 Sat Monitoring; Complete Time: 16:59 rn 10/17 16:34 Order name: Urine Dipstick-Ancillary (obtain specimen); Complete Time: 18:19 rn EC:40 Rate is 60 beats/min. Rhythm is regular. QRS Leupp is Normal. IA interval is normal. QRS rn interval is normal. QT interval is normal. No Q waves. T waves are Normal. No ST changes noted. Clinical impression: Normal ECG. Interpreted by me. Administered Medications: 16:59 Drug: NS 0.9% 1000 ml Route: IV; Rate: 1000 ml; Site: right hand; mg2 18:43 Follow up: Response: No adverse reaction; IV Status: Completed infusion mg2 Point of Care Testing: Blood Glucose: 16:31 Blood Glucose: 101 mg/dL; la1 Ranges: Critical Glucose Levels:Adult <50 mg/dl or >400 mg/dl <40 mg/dl or >180 mg/dl Disposition: 10/17/18 18:17 Discharged to Home. Impression: Superficial injury of head, Concussion. - Condition is Stable. - Discharge Instructions: Concussion, Adult, Head Injury, Adult, Post-Concussion Syndrome. - Medication Reconciliation Form, Thank You Letter, Antibiotic Education, Prescription Opioid Use, Work release form form. - Follow up: Private Physician; When: As needed; Reason: Recheck today's complaints, Re-evaluation by your physician. - Problem is new. - Symptoms have improved. Signatures: Dispatcher [employer] EDMS Mono Jordan MD MD rn Attema, Lee, RN RN la1 Rafi Cooney RN RN mg2 Corrections: (The following items were deleted from the chart) 18:44 18:17 10/17/2018 18:17 Discharged to Home. Impression: Superficial injury of head; mg2 Concussion. Condition is Stable. Forms are Medication Reconciliation Form, Thank You Letter, Antibiotic Education, Prescription Opioid Use. Follow up: Private Physician; When: As needed; Reason: Recheck today's complaints, Re-evaluation by your physician. Problem is new. Symptoms have improved. rn
--- NOTE | 2018-10-17 18:18 | ER ---
Nurse's Notes [facility] Name: Britt Bower Age: 43 yrs Sex: Female : 1975 Arrival Date: 10/17/2018 Time: 16:17 Bed 26 Private MD: CHARISSE CORDOBA Diagnosis: Superficial injury of head;Concussion Presentation: 10/17 16:23 Presenting complaint: Patient states: I was in the shower around 1400 today and when I la1 was in the shower I got dizzy and fell hitting my head. Pt reports +LOC. Remembers getting dizzy and then her helping he up off the ground. Transition of care: patient was not received from another setting of care. Onset of symptoms was October 17, 2018. Risk Assessment: Do you want to hurt yourself or someone else? Patient reports no desire to harm self or others. Initial Sepsis Screen: Does the patient meet any 2 criteria? No. Patient's initial sepsis screen is negative. Does the patient have a suspected source of infection? No. Patient's initial sepsis screen is negative. Care prior to arrival: None. 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: 18:43 lmp unknown mg2 Historical: - Allergies: 16:29 Amoxicillin; la1 16:29 Aspirin; la1 16:29 Coconut; la1 16:29 diazepam; la1 16:29 Iodine; la1 16:29 Morphine; la1 16:29 Ondansetron HCl; la1 16:29 PENICILLINS; la1 16:29 Piperacillin Sodium; la1 16:29 shrimp; la1 16:29 tazobactam sodium; la1 16:29 Zofran; la1 - Home Meds: 16:32 albuterol sulfate 90 mcg/actuation Inhl HFAA [Active]; flonace 2 puffs/day daily mg2 [Active]; gabapentin 600 mg Oral tab 1 tab 3 times per day for Neuropathic Pain [Active]; Humulin 70/30 100 unit/mL (70-30) Sub-Q tab 5 units twice a day for Type 2 Diabetes Mellitus [Active]; levetiracetam 500 mg Oral tab 2 tabs 2 times per day for Tonic-Clonic Epilepsy Treatment Adjunct [Active]; lisinopril-hydrochlorothiazide 20-25 mg Oral tab 1 tab once daily for Hypertension [Active]; - PMHx: 16:29 Asthma; Diabetes - IDDM; epilepsy; history of stroke; Hypertension; neuropathy; la1 - Immunization history:: Adult Immunizations up to date. - Social history:: Smoking status: Patient/guardian denies using tobacco. - Ebola Screening: : No symptoms or risks identified at this time. - Family history:: not pertinent. - Hospitalizations: : No recent hospitalization is reported. Screenin:32 Abuse screen: Denies threats or abuse. Denies injuries from another. Nutritional mg2 screening: No deficits noted. Tuberculosis screening: No symptoms or risk factors identified. Fall Risk Fall in past 12 months (25 points). Secondary diagnosis (15 points) seizures. Assessment: 16:33 General: Appears in no apparent distress. comfortable, Behavior is calm, cooperative. mg2 Pain: Denies pain. Neuro: Level of Consciousness is awake, alert, obeys commands, Oriented to person, place, time, situation, Reports dizziness, a syncopal episode. Cardiovascular: Capillary refill < 3 seconds Patient's skin is warm and dry. Respiratory: Airway is patent Respiratory effort is even, unlabored, Respiratory pattern is regular, symmetrical. GI: No signs and/or symptoms were reported involving the gastrointestinal system. : No signs and/or symptoms were reported regarding the genitourinary system. EENT: No signs and/or symptoms were reported regarding the EENT system. Derm: Skin is intact, is healthy with good turgor, Skin is pink, warm \T\ dry. normal. Musculoskeletal: Circulation, motion, and sensation intact. Capillary refill < 3 seconds, Swelling present in forehead. Injury Description: swelling. 17:15 Reassessment: patient sent to ct scan via stretcher. mg2 18:43 Reassessment: Patient states feeling better. mg2 Vital Signs: 16:27 BP 115 / 82; Pulse 62; Resp 18; Temp 99.8; Pulse Ox 98% on R/A; Weight 96.62 kg; Height mg2 5 ft. 0 in. (152.40 cm); Pain 0/10; 18:43 BP 113 / 67; Pulse 70; Resp 18; Pulse Ox 100% on R/A; Pain 0/10; mg2 16:27 Body Mass Index 41.60 (96.62 kg, 152.40 cm) mg2 [place] Coma Score: 16:40 Eye Response: spontaneous(4). Verbal Response: oriented(5). Motor Response: obeys rn commands(6). Total: 15. 18:16 Eye Response: spontaneous(4). Verbal Response: oriented(5). Motor Response: obeys rn commands(6). Total: 15. ED Course: 16:17 Patient arrived in ED. mr 16:17 CHARISSE CORDOBA is Private Physician. mr 16:22 Mono Jordan MD is Attending Physician. rn 16:26 Triage completed. la1 16:27 Rafi Cooney, RN is Primary Nurse. mg2 16:29 Arm band placed on left wrist. la1 16:32 Patient has correct armband on for positive identification. licensed physical therapy assistant on. Pulse mg2 ox on. NIBP on. Door closed. Warm blanket given. 16:35 No provider procedures requiring assistance completed. mg2 17:21 CT Head C Spine In Process Unspecified. EDMS 17:21 CT completed. Patient tolerated procedure well. Patient moved to CT. Patient moved back mw3 from CT. 18:00 Inserted saline lock: 24 gauge in right hand, using aseptic technique. Blood collected. mg2 18:44 IV discontinued, intact, bleeding controlled, No redness/swelling at site. Pressure mg2 dressing applied. Administered Medications: 16:59 Drug: NS 0.9% 1000 ml Route: IV; Rate: 1000 ml; Site: right hand; mg2 18:43 Follow up: Response: No adverse reaction; IV Status: Completed infusion mg2 Point of Care Testing: Blood Glucose: 16:31 Blood Glucose: 101 mg/dL; la1 Ranges: Outcome: 18:17 Discharge ordered by . rn 18:44 Discharged to home via wheelchair, with family. mg2 18:44 Condition: stable 18:44 Discharge instructions given to patient, family, Instructed on discharge instructions, follow up and referral plans. Demonstrated understanding of instructions, follow-up care. 18:44 Patient left the ED. mg2 Signatures: Dispatcher [employer] Ary Rodrigez mr Mono Jordan MD MD rn Attema, Lee RN RN la1 Rafi Cooney, MERRICK SIN mg2 Chiquita Williamson mw3
[2018-10-17 18:29] LABS: Urine Blood NEGATIVE (NEG); Urine Glucose NEGATIVE (NEG); Urine Protein NEGATIVE (NEG)
[2018-10-17 18:53] VITALS: BP 113/67; O2SAT 100
[2018-10-17 18:55] VITALS: TEMP 99.8
== END 2018-10-17 18:44 | disposition home or self-care (01) ==
LOC: ER 16:13
DX: S06.0X9A Concussion with loss of consciousness of unspecified duration, initial encounter (principal); W18.2XXA Fall in (into) shower or empty bathtub, initial encounter; Y93.E1 Activity, personal bathing and showering; E11.9 Type 2 diabetes mellitus without complications; I10 Essential (primary) hypertension; G40.909 Epilepsy, unspecified, not intractable, without status epilepticus; Z79.4 Long term (current) use of insulin; Z79.51 Long term (current) use of inhaled steroids; Z88.8 Allergy status to other drugs, medicaments and biological substances; Z88.6 Allergy status to analgesic agent; Z88.1 Allergy status to other antibiotic agents; Z88.5 Allergy status to narcotic agent; Z88.0 Allergy status to penicillin; Z91.013 Allergy to seafood
CPT/HCPCS: 36415; 70450; 72125; 80048; 81003; 81025; 82962; 84484; 85025; 96360; 96361; 99285; J7030

== ENCOUNTER 2018-12-30 21:45 | Emergency (ER) | payer SELFPAY ==
--- OUTSIDE RECORDS SUMMARY | 2018-12-30 21:47 | XMS REPORT | Clinical Summary ---
:1975 Author Organization [facility] Address [address] [place] [address] Care Team Providers Name Role Phone Lubna Hunt [facility] Primary Care Provider Allergies Active Allergy [...] Emergency Medicine Bird Conte Syncope, unspecified MD Mohna syncope type (Primary Dx) 10/15/2018 Orders Only General Internal Medicine 10/15/2018 Travel after 12/29/2017 Social History Tobacco Use Types Packs/Day Years [...] Procedure Name Priority Date/Time Associated Comments Diagnosis REPORT OF PROCEDURE - 10/18/2018 4:50 ENDOSCOPY SCAN PM CDT XR CHEST 1 VIEW STAT 10/15/2018 1:13 [...] 398 ms QTC Calculation(Bazett) 438 ms P Kimball 56 degrees R Kimball 31 degrees T Kimball 40 degrees Normal sinus rhythm Normal ECG No previous ECGs available ECG 12-LEAD STAT 10/15/2018 11:22 AM CDT after 12/29/2017 Results EKG-SCANNED (10/18/2018 4:50 PM CDT) Narrative Performed At XR chest 1 view portable / bedside (10/15/2018 1:13 PM CDT) Specimen Narrative Performed At [facility] Chest, AP view. History: Chest pain. Comparison: None available. Discussion:The cardiomediastinal silhouette and pulmonary vasculature are within normal limits. The lungs are clear without evidence of consolidation or effusion.There are no acute osseous abnormalities. The soft tissues are unremarkable. IMPRESSION: No acute cardiopulmonary abnormality. Signed: Kirstie Ozuna MD Report Verified Date/Time:10/15/2018 13:46:07 Reading Location: [facility] Procedure Note Interface, External Ris In - [...] Report Verified Date/Time: 10/15/2018 13:46:07 Reading Location: [facility] Women Performing Organization Address City/State/Zipcode Phone Number [facility] CBC with platelet count + automated diff (10/15/2018 12:59 PM CDT) WBC 6.4 3.5 - 10.5 K/L [facility] RBC 4.76 3.93 - 5.22 M/L [facility] Hemoglobin 14.2 11.2 - 15.7 GM/DL [facility] Hematocrit 42.4 34.1 - 44.9 % [facility] MCV 89.1 79.4 - 94.8 fL [facility] MCH 29.8 25.6 - 32.2 pg [facility] MCHC 33.5 32.2 - 35.5 GM/DL [facility] RDW 12.0 11.7 - 14.4 % [facility] Platelets 305 150 - 450 K/CU MM [facility] MPV 9.3 (L) 9.4 - 12.3 fL [facility] nRBC 0 0 - 0 /100 WBC [facility] % Neutros 57 % [facility] % Lymphs 33 % [facility] % Monos 8 % [facility] % Eos 2 % [facility] % Baso 1 % [facility] # Neutros 3.60 1.56 - 6.13 K/L [facility] # Lymphs 2.10 1.18 - 3.74 K/L [facility] # Monos 0.48 (H) 0.24 - 0.36 K/L [facility] # Eos 0.13 0.04 - 0.36 K/L [facility] # Baso 0.04 0.01 - 0.08 K/L [facility] Immature Granulocytes-Relative 0 0 - 1 % [facility] Specimen Blood Performing Organization Address [facility] Phone Number [address] [address] [phone] [facility] Troponin I (10/15/2018 12:59 PM CDT) Troponin I <0.01 0.00 - 0.03 ng/mL [facility] Specimen Blood Narrative Performed At Troponin I (TnI) levels must be interpreted [facility] in the context of the presenting symptoms [...] disease, and persistent tachyarrhythmia. Performing Organization Address [facility] Phone Number [address] [address] [phone] [facility] B-type Natriuretic Factor (BNP) (10/15/2018 12:59 PM CDT) BNP <10 0 - 100 pg/mL [facility] Specimen Blood Performing Organization Address [facility] Phone Number [address] [address] [phone] [facility] Magnesium (10/15/2018 12:59 PM CDT) Magnesium 1.9 1.6 - 2.6 mg/dL [facility] Specimen Blood Performing Organization Address [facility]/Zipcode Phone Number [address] [address] [place] Comprehensive metabolic panel (10/15/2018 12:59 PM CDT) Protein, Total 7.7 6.0 - 8.3 gm/dL [facility] Albumin 4.3 3.5 - 5.0 g/dL [facility] Alkaline Phosphatase 78 40 - 150 U/L [facility] Total Bilirubin 0.2 0.2 - 1.2 mg/dL [facility] Sodium 140 136 - 145 meq/L [facility] Potassium 3.7 3.5 - 5.1 meq/L [facility] Chloride 105 98 - 107 meq/L [facility] CO2 23 22 - 29 meq/L [facility] BUN 17 7 - 21 mg/dL [facility] Creatinine 0.78 0.57 - 1.25 mg/dL [facility] Glucose 94 70 - 105 mg/dL [facility] Calcium 10.3 (H) 8.4 - 10.2 mg/dL [facility] AST 19 5 - 34 U/L [facility] ALT 24 6 - 55 U/L [facility] EGFR 80Comment: INSUFFICIENT mL/min/1.73 sq m [facility] CLINICAL DATA TO [facility] CALCULATE ESTIMATED GFR. Specimen Blood Performing Organization Address City/State/Zipcode Phone Number [facility] [address] [place] [address] [phone] [facility] Urinalysis with Microscopic If Indicated (10/15/2018 12:56 PM CDT) Color, UA Colorless [facility] Clarity, UA Clear [facility] Specific [place], UA 1.003 1.001 - 1.035 [facility] pH, UA 5.5 5.0 - 8.0 [facility] Protein, UA Negative Negative [facility] Glucose, UA Negative Negative [facility] Ketones, UA Negative Negative [facility] Bilirubin, UA Negative Negative [facility] Blood, UA Negative Negative [facility] Nitrite, UA Negative Negative [facility] Leukocytes, UA Negative Negative [facility] Urobilinogen, UA 0.2 0.2 - 1.0 mg/dL [facility] Specimen Source [facility] Specimen Urine Performing Organization Address City/[facility] Phone Number [address] [address] [place] Screen, urine (10/15/2018 12:56 PM CDT) Preg Test, Ur Negative [facility] Specimen Urine Performing Organization Address [facility] [place] [place] Phone Number [address] [address] [phone] [place] ECG 12 lead (10/15/2018 11:22 AM CDT) Specimen Narrative Performed At Ventricular Rate 73 BPM GE MUSE Atrial Rate 73 BPM P-R Interval 150 ms QRS Duration 84 ms Q-T Interval 398 ms QTC Calculation(Bazett) 438 ms P Kimball 56 degrees R Kimball 31 degrees T Kimball 40 degrees Normal sinus rhythm Normal ECG No previous ECGs available Confirmed by MD Pineda Roberto ([id number]) on 10/16/2018 4:27:06 PM Procedure Note Interface, External Ris In - 10/16/2018 4:27 PM CDT Ventricular Rate 73 BPM Atrial Rate 73 BPM P-R Interval 150 ms QRS Duration 84 ms Q-T Interval 398 ms QTC Calculation(Bazett) 438 ms P Kimball 56 degrees R Kimball 31 degrees T Kimball 40 degrees Normal sinus rhythm Normal ECG No previous ECGs available Confirmed by MD Pineda Roberto ([id number]) on 10/16/2018 4:27:06 PM Performing Organization Address City/[facility] [place] [place] Phone Number GE MUSE after 12/29/2017
--- OUTSIDE RECORDS SUMMARY | 2018-12-30 21:48 | XMS REPORT ---
[...] Dosage System Date Date ProAir HFA [facility] [id number] 108 (90 Base) Jul 26, Active 2 puffs as MCG/ACT 2018 needed Inhalation every 6 hrs Keppra ND 84276271414 500 MG Orally Aug 17, Active 2 tablets every 12 hrs 2018 HumuLIN 70/30 ND 08548053811 (70-30) 100 Jul 26, Active 10 units KwikPen UNIT/ML 2016 Subcutaneous bid Flonase ND 05975707596 50 MCG/ACT Jul 26, Active 2 spray in Nasally Once a 2017 each day nostril Bentyl ND 68544723351 20 MG Orally November 21, Active 1 tablet Four times a 2018 day Gabapentin ND 94039816577 300 MG Orally Jul 26, Active 2 capsule Three times a 2018 before day bedtime Zestoretic ND 67078715243 20-25 MG Orally Jul 26, Active 1 tablet Once a day 2016 Promethazine HCl ND 35100786075 50 MG Orally November 21, Active 1 tablet every 6 hrs 2016 as needed Tylenol # 3 NDC 0 300/30mg PO November 21, Active 1-2 tabs every 6 hrs. 2018 Results Name Result Date Reference Range Unit Abnormality Flag URINALYSIS AUTO W/O SCOPE (24499) ----NIT N [id number] ----URO 0.2 20171113 ----PROTEIN 1+ 20171113 ----pH 5.5 20171113 ----BLO N 20171113 ----GLUCOSE N 20171113 ----ALBERTO N 20171113 ----BILIRUBIN 1+ 20171113 ----KETONES N 20171113 ----SPECIFIC GRAVITY >=1.030 20171113 Summary Purpose eClinicalWorks Submission
--- OUTSIDE RECORDS SUMMARY | 2018-12-30 21:48 | XMS REPORT ---
[...] Medications Results No Known Results Summary Purpose EviinicalAilola Submission
--- OUTSIDE RECORDS SUMMARY | 2018-12-30 21:48 | XMS REPORT ---
:1975 [facility] Address [address] [place] [address] Care Team Providers Name Role Phone KALEE [...] Reference Range Comments TEST URINE (BEAKER) (test fuem=236) Negative URINALYSIS WITH MICROSCOPIC IF [id number] 14:55:00 Test Item Value Reference Range Comments COLOR (BEAKER) (test eimz=513) Colorless CLARITY (BEAKER) (test jfwl=332) Clear SPECIFIC GRAVITY UA (BEAKER) (test tldk=972) 1.003 1.001-1.035 PH UA (BEAKER) (test vloy=739) 5.5 5.0-8.0 PROTEIN UA (BEAKER) (test gaww=902) Negative Negative GLUCOSE UA (BEAKER) (test anog=494) Negative Negative KETONES UA (BEAKER) (test tkvx=566) Negative Negative BILIRUBIN UA (BEAKER) (test ybgq=487) Negative Negative BLOOD UA (BEAKER) (test hpna=074) Negative Negative NITRITE UA (BEAKER) (test gkol=143) Negative Negative LEUKOCYTE ESTERASE UA (BEAKER) (test wozr=530) Negative Negative UROBILINOGEN UA (BEAKER) (test howm=600) 0.2 mg/dL 0.2-1.0 SOURCE(BEAKER) (test nxzo=0993) RAD, CHEST, 1 VIEW, NON [id number] 13:46:00Reason for exam:->chest painIs the patient ?->UnknownShould [...] Verified Date/Time : 10/15/2018 13:46:07 Reading Location: [facility] B-TYPE NATRIURETIC FACTOR ( BNP)2018-10-15 13:45:00 Test Item Value Reference Range Comments B-TYPE NATRIURETIC PEPTIDE (BEAKER) (test gxfd=101) < pg/mL 0-100 TROPONIN [id number] 13:42:00 Test Item Value Reference Range Comments TROPONIN I (BEAKER) (test xprw=003) < ng/mL 0.00-0.03 Troponin I (TnI) levels [...] failure, acidosis, acute neurological disease, and persistent tachyarrhythmia.[id number] 13:36:00 Test Item Value Reference Range Comments MAGNESIUM (BEAKER) (test gsvn=829) 1.9 mg/dL 1.6-2.6 COMPREHENSIVE METABOLIC [id number] 13:36:00 Test Item Value Reference Range Comments TOTAL PROTEIN (BEAKER) 7.7 gm/dL 6.0-8.3 (test vopv=193) ALBUMIN (BEAKER) (test 4.3 g/dL 3.5-5.0 otwp=1824) ALKALINE PHOSPHATASE 78 U/L 40-150 (BEAKER) (test rttl=621) BILIRUBIN TOTAL (BEAKER) 0.2 mg/dL 0.2-1.2 (test ehjn=152) SODIUM (BEAKER) (test 140 meq/L 136-145 ujda=039) POTASSIUM (BEAKER) (test 3.7 meq/L 3.5-5.1 dozz=506) CHLORIDE (BEAKER) (test 105 meq/L 98-107 epvo=316) CO2 (BEAKER) (test 23 meq/L 22-29 ltld=498) BLOOD UREA NITROGEN 17 mg/dL 7-21 (BEAKER) (test ancf=399) CREATININE (BEAKER) (test 0.78 mg/dL 0.57-1.25 vswv=085) GLUCOSE RANDOM (BEAKER) 94 mg/dL 70-105 (test yywd=956) CALCIUM (BEAKER) (test 10.3 mg/dL 8.4-10.2 pfih=148) AST (SGOT) (BEAKER) (test 19 U/L 5-34 ntyc=491) ALT (SGPT) (BEAKER) (test 24 U/L 6-55 rpym=047) EGFR (BEAKER) (test 80 mL/min/1.73 sq m INSUFFICIENT CLINICAL zfmv=1344) DATA TO CALCULATE ESTIMATED GFR. CBC W/PLT COUNT & AUTO [id number] 13:09:00 Test Item Value Reference Range Comments WHITE BLOOD CELL COUNT (BEAKER) (test xvby=120) 6.4 K/ L 3.5-10.5 RED BLOOD CELL COUNT (BEAKER) (test haoa=533) 4.76 M/ L 3.93-5.22 HEMOGLOBIN (BEAKER) (test ypgd=079) 14.2 GM/DL 11.2-15.7 HEMATOCRIT (BEAKER) (test gspe=253) 42.4 % 34.1-44.9 MEAN CORPUSCULAR VOLUME (BEAKER) (test bfye=409) 89.1 fL 79.4-94.8 MEAN CORPUSCULAR HEMOGLOBIN (BEAKER) (test 29.8 pg 25.6-32.2 iqbz=537) MEAN CORPUSCULAR HEMOGLOBIN CONC (BEAKER) (test 33.5 GM/DL 32.2-35.5 hqla=507) RED CELL DISTRIBUTION WIDTH (BEAKER) (test 12.0 % 11.7-14.4 yozo=779) PLATELET COUNT (BEAKER) (test aljv=898) 305 K/CU MM 150-450 MEAN PLATELET VOLUME (BEAKER) (test ausr=932) 9.3 fL 9.4-12.3 NUCLEATED RED BLOOD CELLS (BEAKER) (test 0 /100 WBC 0-0 cljr=989) NEUTROPHILS RELATIVE PERCENT (BEAKER) (test 57 % xewu=372) LYMPHOCYTES RELATIVE PERCENT (BEAKER) (test 33 % kcxt=115) MONOCYTES RELATIVE PERCENT (BEAKER) (test 8 % svpq=717) EOSINOPHILS RELATIVE PERCENT (BEAKER) (test 2 % bpwy=833) BASOPHILS RELATIVE PERCENT (BEAKER) (test 1 % uplt=423) NEUTROPHILS ABSOLUTE COUNT (BEAKER) (test 3.60 K/ L 1.56-6.13 jyvi=786) LYMPHOCYTES ABSOLUTE COUNT (BEAKER) (test 2.10 K/ L 1.18-3.74 romi=285) MONOCYTES ABSOLUTE COUNT (BEAKER) (test 0.48 K/ L 0.24-0.36 iqby=113) EOSINOPHILS ABSOLUTE COUNT (BEAKER) (test 0.13 K/ L 0.04-0.36 rejp=446) BASOPHILS ABSOLUTE COUNT (BEAKER) (test 0.04 K/ L 0.01-0.08 cbbg=201) IMMATURE GRANULOCYTES-RELATIVE PERCENT (BEAKER) 0 % 0-1 (test cbsm=1060)
--- OUTSIDE RECORDS SUMMARY | 2018-12-30 21:48 | XMS REPORT ---
[...] Status Dosage System Date Date Flonase [facility] 62302251884 50 MCG/ACT Jul 26, Active 2 spray in Nasally Once a 2017 each day nostril ProAir HFA [facility] 70143093389 108 (90 Base) Jul 26, Active 2 puffs as MCG/ACT 2018 needed Inhalation every 6 hrs Tylenol # 3 NDC 0 300/30mg PO November 21, Active 1-2 tabs every 6 hrs. 2018 Levaquin ND 18851668700 500 MG Orally Active 1 tablet Once a day Gabapentin ND 36904535606 600 MG Orally Jul 26, Active 1 capsule Three times a 2018 day Zestoretic ND 77404200249 20-25 MG Orally Jul 26, Active 1 tablet Once a day 2016 Keppra ND 51379740320 500 MG Orally Active take two Twice a day -2 tablet(s) by mouth twice a day. Tramadol HCl ND 49633768005 50 MG Orally Active 1 tablet every 6 hrs as needed Promethazine HCl ND 72322804089 50 MG Orally November 21, Active 1 tablet every 6 hrs 2016 as needed Bentyl ND 78521826558 20 MG Orally November 21, Active 1 tablet Four times a 2018 day HumuLIN 70/30 ND 81115687835 (70-30) 100 Jul 26, Active 10 units KwikPen UNIT/ML 2016 Subcutaneous bid Results No Known Results Summary Purpose eClinicalWorks Submission
--- OUTSIDE RECORDS SUMMARY | 2018-12-30 21:48 | XMS REPORT ---
[...] Dosage System Date Date HumuLIN 70/30 [facility] 16454780311 (70-30) 100 Jul 26, Active 10 units KwikPen UNIT/ML 2016 Subcutaneous bid ProAir HFA [facility] 72564552489 108 (90 Base) Jul 26, Active 2 puffs as MCG/ACT 2018 needed Inhalation every 6 hrs Keppra [facility] 06024481161 500 MG Orally Active take two Twice a day -2 tablet(s) by mouth twice a day. Gabapentin ND 18794670503 600 MG Orally Jul 26, Active 1 capsule Three times a 2018 day Zestoretic ND 18514040029 20-25 MG Orally Jul 26, Active 1 tablet Once a day 2015 Bentyl ND 77691537486 20 MG Orally November 21, Active 1 tablet Four times a 2018 day Tylenol # 3 NDC 0 300/30mg PO November 21, Active 1-2 tabs every 6 hrs. 2018 Promethazine HCl ND 46219777663 50 MG Orally November 21, Active 1 tablet every 6 hrs 2016 as needed Flonase NDC 56854520590 50 MCG/ACT Jul 26, Active 2 spray in Nasally Once a 2018 each day nostril Results No Known Results Summary Purpose eClinicalWorks Submission
--- OUTSIDE RECORDS SUMMARY | 2018-12-30 21:48 | XMS REPORT ---
[...] Status Dosage System Date Date Bentyl ND 88864460815 20 MG Orally November 21, Active 1 tablet Four times a 2018 day Tylenol # 3 NDC 0 300/30mg PO November 21, Active 1-2 tabs every 6 hrs. 2018 Flonase ND 37868331729 50 MCG/ACT Jul 26, Active 2 spray in Nasally Once a 2018 each day nostril Promethazine HCl ND 00708601797 50 MG Orally November 21, Active 1 tablet every 6 hrs 2016 as needed Gabapentin ND 58557813296 600 MG Orally Jul 26, Active 1 capsule Three times a 2018 day ProAir HFA ND 98842057700 108 (90 Base) Jul 26, Active 2 puffs as MCG/ACT 2018 needed Inhalation every 6 hrs Keppra ND 68593228545 500 MG Orally Active take two Twice a day -2 tablet(s) by mouth twice a day. Zestoretic ND 33932117846 20-25 MG Orally Jul 26, Active 1 tablet Once a day 2015 HumuLIN 70/30 ND 70740467143 (70-30) 100 Jul 26, Active 10 units KwikPen UNIT/ML 2016 Subcutaneous bid Results Name Result Date Reference Range Unit Abnormality Flag URINALYSIS AUTO W/O SCOPE (00244) ----NIT N [id number] ----URO 1.0 [id number] ----PROTEIN TR [id number] ----pH 5.5 20180219 ----BLO N [id number] ----GLUCOSE N [id number] ----ALBERTO N [id number] ----BILIRUBIN N [id number] ----KETONES N [id number] ----SPECIFIC GRAVITY 1.025 [id number] Summary Purpose eClinicalWorks Submission
--- OUTSIDE RECORDS SUMMARY | 2018-12-30 21:48 | XMS REPORT ---
[...] Status Dosage System Date Date ProAir HFA [facility] 61026232316 108 (90 Base) Jul 26, Active 2 puffs as MCG/ACT 2018 needed Inhalation every 6 hrs Gabapentin ND 27239308369 600 MG Orally Jul 26, Active 1 capsule Three times a 2018 day Keppra [facility] 14771831645 500 MG Active TAKE TWO (2) TABLET(S) BY MOUTH TWICE A DAY. Zestoretic [facility] 60069094488 20-25 MG Orally Jul 26, Active 1 tablet Once a day 2015 HumuLIN 70/30 [facility] 79902365027 (70-30) 100 Jul 26, Active 10 units KwikPen UNIT/ML 2016 Subcutaneous bid Flonase ND 30009780298 50 MCG/ACT Jul 26, Active 2 spray in Nasally Once a 2017 each day nostril Tramadol HCl ND 38763486838 50 MG Orally Active 1 tablet every 6 hrs as needed Levaquin ND 18588027772 500 MG Orally Active 1 tablet Once a day Lisinopril ND 46878152497 10 MG Orally Sep 09, Active 1 tablet Once a day 2018 Bentyl [facility] 90557384651 20 MG Orally November 21, Active 1 tablet Four times a day 2017 Results No Known Results Summary Purpose eClinicalWorks Submission
--- NOTE | 2018-12-30 23:30 | EDPHYS ---
Physician Documentation [facility] Name: Britt Bower Age: 43 yrs Sex: Female : 1975 Arrival Date: 12/30/2018 Time: 21:48 Bed 18 Private MD: Lubna Hunt ED Physician Rm Gilbert HPI: 12/30 23:25 This 43 yrs old Female presents to ER via Ambulatory with complaints of gs Finger Injury - laceration. 23:25 The complaints affect the palmar aspect of distal phalanx of left ring finger. Context: gs The problem was sustained at work, resulted from cut on knife. Onset: The symptoms/episode began/occurred acutely, just prior to arrival. Modifying factors: The symptoms are alleviated by nothing, the symptoms are aggravated by nothing. Associated signs and symptoms: Pertinent negatives: cyanosis distally, numbness distally. Severity of symptoms: At their worst the symptoms were moderate, in the emergency department the symptoms are unchanged. The patient has experienced a previous episode. 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 - Hysterectomy ak1 Historical: - Allergies: 21:58 Amoxicillin; ak1 21:58 Aspirin; ak1 21:58 Coconut; ak1 21:58 diazepam; ak1 21:58 Iodine; ak1 21:58 Morphine; ak1 21:58 Ondansetron HCl; ak1 21:58 PENICILLINS; ak1 21:58 Piperacillin Sodium; ak1 21:58 shrimp; ak1 21:58 Zofran; ak1 21:58 tazobactam sodium; ak1 - Home Meds: 21:58 lisinopril-hydrochlorothiazide 25-30 Oral tab 1 tab once daily [Active]; levetiracetam ak1 500 mg Oral tab 2 tabs 2 times per day for Tonic-Clonic Epilepsy Treatment Adjunct [Active]; Humulin 70/30 100 unit/mL (70-30) Sub-Q tab 5 units twice a day for Type 2 Diabetes Mellitus [Active]; gabapentin 600 mg Oral tab 1 tab 3 times per day for Neuropathic Pain [Active]; flonace 2 puffs/day daily [Active]; albuterol sulfate 90 mcg/actuation Inhl HFAA [Active]; lisinopril 10 mg Oral tab 1 tab once daily [Active]; - PMHx: 21:58 Asthma; Diabetes - IDDM; epilepsy; history of stroke; Hypertension; neuropathy; ak1 - PSHx: 21:58 Hysterectomy; ; Cholecystectomy; blood clott to left breast.; ak1 - Immunization history:: Adult Immunizations unknown, Last tetanus immunization: < 5 years ago. - Social history:: Smoking status: Patient/guardian denies using tobacco. - Ebola Screening: : No symptoms or risks identified at this time. ROS: 23:25 All other systems are negative. gs Exam: 23:25 Constitutional: The patient appears alert, awake. gs 23:25 Musculoskeletal/extremity: ROM: no acute changes, Circulation is intact in all extremities. Sensation intact. Joints: All joints appear normal with full range of motion. 23:25 Skin: injury, laceration(s), the wound is approximately 2 cm(s), of the palmar aspect of distal phalanx of left ring finger, the second wound is approximately 2 cm(s), of the palmar aspect of distal phalanx of left ring finger, the third wound is approximately 2 cm(s), of the palmar aspect of distal phalanx of left middle finger. Vital Signs: 21:59 BP 130 / 85; Pulse 98; Resp 16; Temp 97.6; Pulse Ox 97% on R/A; Weight 97.07 kg (R); ak1 Height 5 ft. 0 in. (152.40 cm) (R); Pain 0/10; 21:59 Body Mass Index 41.79 (97.07 kg, 152.40 cm) ak1 21:59 numb ak1 Laceration: 23:25 Wound Repair of 6cm ( 2.4in ) subcutaneous laceration to palmar aspect of distal gs phalanx of left middle finger and palmar aspect of distal phalanx of left ring finger. Distal neuro/vascular/tendon intact. Wound prep: Simple cleansing. Skin closed with 1-0 Adhesive skin closure using Dermabond. Patient tolerated well. MDM: 23:23 Patient medically screened. gs 23:25 Data reviewed: vital signs, nurses notes. Counseling: I had a detailed discussion with gs the patient and/or guardian regarding: the historical points, exam findings, and any diagnostic results supporting the discharge/admit diagnosis, the need for outpatient follow up. 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 Exp: rr5 10/09/2020. Lot #: [id number]. } Route: IM; Site: left deltoid; 23:55 Follow up: Response: No adverse reaction rr5 Disposition: 12/30/18 23:29 Discharged to Home. Impression: Laceration without foreign body of left hand. - Condition is Stable. - Discharge Instructions: Tissue Adhesive Wound Care, Laceration Care, Adult, [id number]. - Medication Reconciliation Form, Thank You Letter, Antibiotic Education, Prescription Opioid Use form. - Follow up: Private Physician; When: 2 - 3 days; Reason: Re-evaluation by your physician. Signatures: Mónica Tatum RN RN ak1 Rm Gilbert MD MD gs Volodymyr Fu RN RN rr5 Corrections: (The following items were deleted from the chart) 23:55 23:29 12/30/2018 23:29 Discharged to Home. Impression: Laceration without foreign body rr5 of left hand. Condition is Stable. Forms are Medication Reconciliation Form, Thank You Letter, Antibiotic Education, Prescription Opioid Use. Follow up: Private Physician; When: 2 - 3 days; Reason: Re-evaluation by your physician. gs
--- NOTE | 2018-12-30 23:30 | ER ---
Nurse's Notes [facility] Name: Britt Bower Age: 43 yrs Sex: Female : 1975 Arrival Date: 12/30/2018 Time: 21:48 Bed 18 Private MD: Lubna Hunt Diagnosis: Laceration without foreign body of left hand Presentation: 12/30 21:59 Presenting complaint: Patient states: 1845 cut to left ring finger. pt stated she can ak1 not get the bleeding to stop. Transition of care: patient was not received from another setting of care. Onset of symptoms was December 30, 2018. Risk Assessment: Do you want to hurt yourself or someone else? Patient reports no desire to harm self or others. Initial Sepsis Screen: Does the patient meet any 2 criteria? No. Patient's initial sepsis screen is negative. Does the patient have a suspected source of infection? No. Patient's initial sepsis screen is negative. Care prior to arrival: None. 21:59 Method Of Arrival: Ambulatory ak1 21:59 Acuity: [facility] 4 ak1 Triage Assessment: 21:58 General: Appears in no apparent distress. Behavior is calm, cooperative. ak1 22:01 Injury Description: Laceration sustained to left hand. 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 ak1 Historical: - Allergies: 21:58 Amoxicillin; ak1 21:58 Aspirin; ak1 21:58 Coconut; ak1 21:58 diazepam; ak1 21:58 Iodine; ak1 21:58 Morphine; ak1 21:58 Ondansetron HCl; ak1 21:58 PENICILLINS; ak1 21:58 Piperacillin Sodium; ak1 21:58 shrimp; ak1 21:58 Zofran; ak1 21:58 tazobactam sodium; ak1 - Home Meds: 21:58 lisinopril-hydrochlorothiazide 25-30 Oral tab 1 tab once daily [Active]; levetiracetam ak1 500 mg Oral tab 2 tabs 2 times per day for Tonic-Clonic Epilepsy Treatment Adjunct [Active]; Humulin 70/30 100 unit/mL (70-30) Sub-Q tab 5 units twice a day for Type 2 Diabetes Mellitus [Active]; gabapentin 600 mg Oral tab 1 tab 3 times per day for Neuropathic Pain [Active]; flonace 2 puffs/day daily [Active]; albuterol sulfate 90 mcg/actuation Inhl HFAA [Active]; lisinopril 10 mg Oral tab 1 tab once daily [Active]; - PMHx: 21:58 Asthma; Diabetes - IDDM; epilepsy; history of stroke; Hypertension; neuropathy; ak1 - PSHx: 21:58 Hysterectomy; ; Cholecystectomy; blood clott to left breast.; ak1 - Immunization history:: Adult Immunizations unknown, Last tetanus immunization: < 5 years ago. - Social history:: Smoking status: Patient/guardian denies using tobacco. - Ebola Screening: : No symptoms or risks identified at this time. Screenin:01 Abuse screen: Denies threats or abuse. Denies injuries from another. Nutritional ak1 screening: No deficits noted. Tuberculosis screening: No symptoms or risk factors identified. Fall Risk None identified. Assessment: 23:15 General: Appears in no apparent distress. comfortable, Behavior is calm, cooperative, rr5 appropriate for age. 23:15 Pain: Denies pain. Neuro: Level of Consciousness is awake, alert, obeys commands, rr5 Oriented to person, place, time, situation, Appropriate for age. Cardiovascular: Capillary refill < 3 seconds Patient's skin is warm and dry. Respiratory: Airway is patent Respiratory effort is even, unlabored, Respiratory pattern is regular, symmetrical. GI: No deficits noted. : No signs and/or symptoms were reported regarding the genitourinary system. EENT: No signs and/or symptoms were reported regarding the EENT system. Derm: Wound noted palmar aspect of distal phalanx of left ring finger and palmar aspect of distal phalanx of left middle finger Wound is cut wound. Musculoskeletal: Capillary refill < 3 seconds, Range of motion: intact in all extremities. 23:53 Reassessment: Patient appears in no apparent distress at this time. Patient is alert, rr5 oriented x 3, equal unlabored respirations, skin warm/dry/pink. discharge instruction given and explained without complaints made. Patient states feeling better. Patient states symptoms have improved. Vital Signs: 21:59 BP 130 / 85; Pulse 98; Resp 16; Temp 97.6; Pulse Ox 97% on R/A; Weight 97.07 kg (R); ak1 Height 5 ft. 0 in. (152.40 cm) (R); Pain 0/10; 21:59 Body Mass Index 41.79 (97.07 kg, 152.40 cm) ak1 21:59 numb ak1 ED Course: 21:48 Patient arrived in ED. am2 21:48 Lubna Hunt FNP-C is Private Physician. am2 21:59 Triage completed. ak1 21:59 Arm band placed on Patient placed in waiting room, Patient notified of wait time. ak1 22:01 Patient has correct armband on for positive identification. ak1 23:12 Volodymyr Fu, MERRICK is Primary Nurse. rr5 23:13 Rm Osborne MD is Attending Physician. 23:20 Assist provider with laceration repair on palmar aspect of distal phalanx of left ring rr5 finger and palmar aspect of distal phalanx of left middle finger that was 2.5 cm. or less using Dermabond. Patient tolerated well. 23:20 Patient did not have IV access during this emergency room visit. 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 Exp: rr5 10/09/2020. Lot #: [id number]. } Route: IM; Site: left deltoid; 23:55 Follow up: Response: No adverse reaction rr5 Outcome: 23:20 Discharged to home ambulatory. rr5 23:20 Condition: stable 23:29 Discharge ordered by . 23:54 Discharge instructions given to patient, Instructed on discharge instructions, follow rr5 up and referral plans. Demonstrated understanding of instructions, follow-up care. 23:55 Patient left the ED. rr5 Signatures: Mónica Tatum RN RN ak1 Pearl Fu 2 Rm Osborne MD MD Volodymyr Fu RN RN rr5 Corrections: (The following items were deleted from the chart) 12/31 01:21 0613 23:20 Wound care: to cut located on palmar aspect of distal phalanx of left ring rr5 finger was dressed with band aid, dermabond applied by dr. osborne Patient tolerated well. rr5
[2018-12-30] MEDS ORDERED: TETANUS & DIPHTHERIA TOX,ADULT 0.5 ML VIAL ONE (23:53)
[2018-12-31 02:20] VITALS: BP 130/85; TEMP 97.6; O2SAT 97
== END 2018-12-30 23:55 | disposition home or self-care (01) ==
LOC: ER 21:45
PROC: 0HQGXZZ Repair Left Hand Skin, External Approach (ICD-10-PCS; principal; 2018-12-30)
DX: S61.215A Laceration without foreign body of left ring finger without damage to nail, initial encounter (principal); W26.0XXA Contact with knife, initial encounter; Z23 Encounter for immunization; Z88.6 Allergy status to analgesic agent; Z88.5 Allergy status to narcotic agent; Z88.0 Allergy status to penicillin; Z91.013 Allergy to seafood; Z88.8 Allergy status to other drugs, medicaments and biological substances; Z91.018 Allergy to other foods
CPT/HCPCS: 90471; 90714; 99283

== ENCOUNTER 2019-04-17 12:42 | Emergency (ER) | payer SELFPAY ==
[2019-04-17 14:12] LABS: Urine Blood NEGATIVE (NEG); Urine Glucose NEGATIVE (NEG); Urine Protein NEGATIVE (NEG)
[2019-04-17] MEDS ORDERED: NA CHLORIDE 0.9% 1,000 ML ONE (14:24)
--- NOTE | 2019-04-17 14:32 | RAD REPORT ---
EXAM DESCRIPTION: RAD - Chest Single View - 04/17/2019 2:21 pm CLINICAL HISTORY: Cough COMPARISON: September 2018 TECHNIQUE: AP portable chest image was obtained 1417 hours . FINDINGS: Lungs are clear. Heart and vasculature are normal. No measurable pleural effusion and no p neumothorax. No acute bony abnormality seen. No acute aortic findings suspected. IMPRESSION: No acute cardiopulmonary process. No significant interval change.
[2019-04-17] MEDS ORDERED: CEFTRIAXONE/SWI 1gm 1 GM/10 ML SYR ONE (15:10)
[2019-04-17 15:18] LABS: Absolute Lymphocytes (CBC) 1.7 K/uL (0.7-4.9); Basophils % 0.6 % (0-1.3); Hematocrit 34.7 % (36.0-45.0); Lymphocytes % 27.9 % (15.3-44.8); MPV 7.9 fL (7.6-11.3); RBC Red Blood Cell Count 3.97 M/uL (3.86-4.86)
[2019-04-17 15:23] LABS: ALT/SGPT 24 U/L (12-78); AST/SGOT 18 U/L (15-37); Albumin 3.3 g/dL (3.4-5.0); Alkaline Phosphatase 76 U/L (45-117); BUN Blood Urea Nitrogen 11 mg/dL (7-18); Bicarbonate 28 mmol/L (21-32); Bilirubin Direct < 0.1 mg/dL (0-0.2); Bilirubin Total 0.2 mg/dL (0.2-1.0); Glucose Level 90 mg/dL (74-106); Lipase 86 U/L (73-393); Magnesium 2.2 mg/dL (1.8-2.4); NT PRO-BNP 160 pg/mL (<125); Potassium 3.5 mmol/L (3.5-5.1); Protein, Total 6.9 g/dL (6.4-8.2); Sodium Level 142 mmol/L (136-145); Troponin (Emerg Dept Use Only) < 0.02 ng/mL (0.0-0.045)
--- NOTE | 2019-04-17 15:36 | ER ---
Nurse's Notes [facility] Name: Britt Bower Age: 43 yrs Sex: Female : 1975 Arrival Date: 04/17/2019 Time: 12:57 Bed 20 Private MD: Diagnosis: Urinary tract infection, site not specified;Weakness;Type 1 diabetes mellitus Presentation: 04/17 12:58 Presenting complaint: Patient states: urinary muscle pulling when urinating yesterday, sv not today. Report today "I feel off." BS this morning was 200 and took her insulin and it went down to 100. Transition of care: patient was not received from another setting of care. Onset of symptoms was April 16, 2019. Risk Assessment: Do you want to hurt yourself or someone else? Patient reports no desire to harm self or others. Care prior to arrival: None. 12:58 Method Of Arrival: Ambulatory sv 12:58 Acuity: [facility] 3 sv 14:00 Initial Sepsis Screen: Does the patient meet any 2 criteria? No. Patient's initial em sepsis screen is negative. Does the patient have a suspected source of infection? No. Patient's initial sepsis screen is negative. Historical: - Allergies: 13:01 Amoxicillin; sv 13:01 Aspirin; sv 13:01 Coconut; sv 13:01 diazepam; sv 13:01 Iodine; sv 13:01 Morphine; sv 13:01 Ondansetron HCl; sv 13:01 PENICILLINS; sv 13:01 Piperacillin Sodium; sv 13:01 shrimp; sv 13:01 tazobactam sodium; sv 13:01 Zofran; sv - PMHx: 13:01 Asthma; Diabetes - IDDM; epilepsy; history of stroke; Hypertension; neuropathy; sv - PSHx: 13:01 Hysterectomy; ; Cholecystectomy; blood clott to left breast.; sv - Family history:: not pertinent. - Ebola Screening: : No symptoms or risks identified at this time. Screenin:58 Abuse screen: Denies threats or abuse. Denies injuries from another. Nutritional sv screening: No deficits noted. Tuberculosis screening: No symptoms or risk factors identified. Fall Risk None identified. Assessment: 12:58 General: Appears in no apparent distress. well developed, Behavior is cooperative, sv appropriate for age, anxious. Pain: Complains of pain in suprapubic area. Neuro: Level of Consciousness is awake, alert, obeys commands, Oriented to person, place, time, situation, Moves all extremities. Full function Gait is steady, Speech is normal. Neuro: Reports "feeling off". Respiratory: Respiratory effort is even, unlabored, Respiratory pattern is regular, symmetrical. : Reports pain in suprapubic area with urination. Derm: Skin is normal. Musculoskeletal: Range of motion: intact in all extremities. 14:00 Reassessment: Patient appears in no apparent distress at this time. Patient and/or em family updated on plan of care and expected duration. Pain level reassessed. Patient is alert, oriented x 3, equal unlabored respirations, skin warm/dry/pink. 16:00 Reassessment: Patient appears in no apparent distress at this time. Patient and/or em family updated on plan of care and expected duration. Pain level reassessed. Patient is alert, oriented x 3, equal unlabored respirations, skin warm/dry/pink. Patient states feeling better. Vital Signs: 13:01 BP 122 / 84; Pulse 84; Resp 16; Temp 97.6; Pulse Ox 97% ; Weight 100.24 kg; Height 5 sv ft. 0 in. (152.40 cm); 14:00 BP 108 / 67; Pulse 73; Resp 16; Pulse Ox 99% on R/A; mh5 15:24 BP 105 / 59; Pulse 58; Resp 17; Temp 98.0(O); Pulse Ox 100% ; mh5 16:30 BP 115 / 64; Pulse 68; Resp 16; Pulse Ox 100% on R/A; Pain 2/10; em 13:01 Body Mass Index 43.16 (100.24 kg, 152.40 cm) sv ED Course: 12:57 Patient arrived in ED. am2 12:58 Patient has correct armband on for positive identification. Bed in low position. Call light in reach. Adult w/ patient. 13:00 Triage completed. sv 13:01 Arm band placed on. sv 13:51 Dontae Lópze MD is Attending Physician. [facility] 13:53 Kem Murillo LVN is Primary Nurse. em 14:22 XRAY Chest (1 view) In Process Unspecified. EDMS 14:45 Missed attempt(s): 24 gauge in right forearm. Bleeding controlled, band aid applied, em catheter tip intact. 14:55 Initial lab(s) drawn, by me, sent to lab. Inserted saline lock: 24 gauge in right em wrist, using aseptic technique. Blood collected. 16:52 No provider procedures requiring assistance completed. IV discontinued, intact, em bleeding controlled, No redness/swelling at site. Pressure dressing applied. Administered Medications: 14:58 Drug: NS 0.9% 1000 ml Route: IV; Rate: 1 bolus; Site: right wrist; em 16:51 Follow up: IV Status: Completed infusion; IV Intake: 1000ml em 15:34 Drug: Rocephin 1 grams Route: IV; Rate: per protocol; Site: right wrist; ss 15:40 Follow up: Response: No adverse reaction; IV Status: Completed infusion; IV Intake: 10mlem Point of Care Testing: Blood Glucose: 13:04 Blood Glucose: 184 mg/dL; sv Ranges: Intake: 15:40 IV: 10ml; Total: 10ml. em 16:51 IV: 1000ml; Total: 1010ml. em Outcome: 15:35 Discharge ordered by . [facility] 16:52 Discharged to home ambulatory, with family. em 16:52 Condition: good 16:52 Discharge instructions given to patient, family, Instructed on discharge instructions, follow up and referral plans. medication usage, Demonstrated understanding of instructions, follow-up care, medications, Prescriptions given X 1. 16:56 Patient left the ED. em Addendum: 04/21/2019 15:01 Addendum: Culture Results: Positive urine culture. sensitive to fluoroquinolones per s s Ny Johnson NP. Patient must follow up with PCP Bacteria is resistant to, has intermediate sensitivity, or is not tested against prescribed antibiotics. Report given to DOLORES for further evaluation and then to dimensional engineer for follow up with patient. Phone call Attempt #1 Not a working number Certified letter sent to listed address for patient. Signatures: Dispatcher [employer] Karolyn Velasquez RN RN sv Anderson, Corey, MD MD cha Munoz, Edgar, FLOOR WORKER FLOOR WORKER Cindy Brice RN RN ss Martinez, Maria [facility] Pearl Fu am2
--- NOTE | 2019-04-17 15:37 | EDPHYS ---
Physician Documentation [facility] Name: Britt Bower Age: 43 yrs Sex: Female : 1975 Arrival Date: 04/17/2019 Time: 12:57 Bed 20 Private MD: BRO Physician Dontae López HPI: 04/17 14:02 This 43 yrs old Female presents to ER via Ambulatory with complaints of abebe Doesn't Feel Right, General Weakness. 14:02 The patient presents with urinary symptoms. Onset: The symptoms/episode began/occurred abebe 1 day(s) ago. Modifying factors: The symptoms are alleviated by nothing, the symptoms are aggravated by nothing. Associated signs and symptoms: The patient has no apparent associated signs or symptoms. Severity of symptoms: At their worst the symptoms were mild, in the emergency department the symptoms are unchanged. weak, near syncope. Severity of symptoms: At their worst the symptoms were mild in the emergency department the symptoms are unchanged. Historical: - Allergies: 13:01 Amoxicillin; sv 13:01 Aspirin; sv 13:01 Coconut; sv 13:01 diazepam; sv 13:01 Iodine; sv 13:01 Morphine; sv 13:01 Ondansetron HCl; sv 13:01 PENICILLINS; sv 13:01 Piperacillin Sodium; sv 13:01 shrimp; sv 13:01 tazobactam sodium; sv 13:01 Zofran; sv - PMHx: 13:01 Asthma; Diabetes - IDDM; epilepsy; history of stroke; Hypertension; neuropathy; sv - PSHx: 13:01 Hysterectomy; ; Cholecystectomy; blood clott to left breast.; sv - Family history:: not pertinent. - Ebola Screening: : No symptoms or risks identified at this time. ROS: 14:02 Constitutional: Negative for fever, chills, and weight loss, Eyes: Negative for injury, abebe pain, redness, and discharge, ENT: Negative for injury, pain, and discharge, Neck: Negative for injury, pain, and swelling, Cardiovascular: Negative for chest pain, palpitations, and edema, Respiratory: Negative for shortness of breath, cough, wheezing, and pleuritic chest pain, Back: Negative for injury and pain, MS/Extremity: Negative for injury and deformity, Skin: Negative for injury, rash, and discoloration, Neuro: Negative for headache, weakness, numbness, tingling, and seizure, Psych: Negative for depression, anxiety, suicide ideation, homicidal ideation, and hallucinations, Allergy/Immunology: Negative for hives, rash, and allergies, Endocrine: Negative for neck swelling, polydipsia, polyuria, polyphagia, and marked weight changes, Hematologic/Lymphatic: Negative for swollen nodes, abnormal bleeding, and unusual bruising. 14:02 Abdomen/GI: Positive for abdominal pain. 14:02 MS/extremity: Negative for acute changes. Exam: 14:02 Constitutional: This is a well developed, well nourished patient who is awake, alert, abebe and in no acute distress. Head/Face: Normocephalic, atraumatic. Eyes: Pupils equal round and reactive to light, extra-ocular motions intact. Lids and lashes normal. Conjunctiva and sclera are non-icteric and not injected. Cornea within normal limits. Periorbital areas with no swelling, redness, or edema. ENT: Nares patent. No nasal discharge, no septal abnormalities noted. Tympanic membranes are normal and external auditory canals are clear. Oropharynx with no redness, swelling, or masses, exudates, or evidence of obstruction, uvula midline. Mucous membranes moist. Neck: Trachea midline, no thyromegaly or masses palpated, and no cervical lymphadenopathy. Supple, full range of motion without nuchal rigidity, or vertebral point tenderness. No Meningismus. Chest/axilla: Normal chest wall appearance and motion. Nontender with no deformity. No lesions are appreciated. Cardiovascular: Regular rate and rhythm with a normal S1 and S2. No gallops, murmurs, or rubs. Normal PMI, no JVD. No pulse deficits. Respiratory: Lungs have equal breath sounds bilaterally, clear to auscultation and percussion. No rales, rhonchi or wheezes noted. No increased work of breathing, no retractions or nasal flaring. Abdomen/GI: Soft, non-tender, with normal bowel sounds. No distension or tympany. No guarding or rebound. No evidence of tenderness throughout. Back: No spinal tenderness. No costovertebral tenderness. Full range of motion. Female : Normal external genitalia. Skin: Warm, dry with normal turgor. Normal color with no rashes, no lesions, and no evidence of cellulitis. MS/ Extremity: Pulses equal, no cyanosis. Neurovascular intact. Full, normal range of motion. Neuro: Awake and alert, GCS 15, oriented to person, place, time, and situation. Cranial nerves II-XII grossly intact. Motor strength 5/5 in all extremities. Sensory grossly intact. Cerebellar exam normal. Normal gait. Psych: Awake, alert, with orientation to person, place and time. Behavior, mood, and affect are within normal limits. Vital Signs: 13:01 BP 122 / 84; Pulse 84; Resp 16; Temp 97.6; Pulse Ox 97% ; Weight 100.24 kg; Height 5 sv ft. 0 in. (152.40 cm); 14:00 BP 108 / 67; Pulse 73; Resp 16; Pulse Ox 99% on R/A; mh5 15:24 BP 105 / 59; Pulse 58; Resp 17; Temp 98.0(O); Pulse Ox 100% ; mh5 16:30 BP 115 / 64; Pulse 68; Resp 16; Pulse Ox 100% on R/A; Pain 2/10; em 13:01 Body Mass Index 43.16 (100.24 kg, 152.40 cm) sv MDM: 13:51 Patient medically screened. [facility] 14:06 Data reviewed: vital signs, nurses notes, lab test result(s), EKG, radiologic studies, [facility] CT scan, plain films. 04/17 14:01 Order name: Basic Metabolic Panel; Complete Time: 15:35 [facility] 04/17 14:01 Order name: CBC with Diff; Complete Time: 15:35 [facility] 04/17 14:01 Order name: LFT's; Complete Time: 15:35 [facility] 04/17 14:01 Order name: Magnesium; Complete Time: 15:35 [facility] 04/17 14:01 Order name: NT PRO-BNP; Complete Time: 15:35 [facility] 04/17 14:01 Order name: PT-INR; Complete Time: 15:35 [facility] 04/17 14:01 Order name: Troponin (emerg Dept Use Only); Complete Time: 15:35 [facility] 04/17 14:01 Order name: XRAY Chest (1 view); Complete Time: 14:53 [facility] 04/17 14:01 Order name: Lipase; Complete Time: 15:35 [facility] 04/17 14:01 Order name: Urine Culture [facility] 04/17 14:07 Order name: Urine Dipstick--Ancillary (enter results); Complete Time: 14:53 04/17 14:07 Order name: Urine --Ancillary (enter results); Complete Time: 14:53 04/17 14:01 Order name: EKG; Complete Time: 14:02 [facility] 04/17 14:01 Order name: Cardiac monitoring; Complete Time: 14:58 [facility] 04/17 14:01 Order name: EKG - Nurse/Tech; Complete Time: 14:58 [facility] 04/17 14:01 Order name: IV Saline Lock; Complete Time: 14:58 [facility] 04/17 14:01 Order name: Labs collected and sent; Complete Time: 14:58 [facility] 04/17 14:01 Order name: O2 Per Protocol; Complete Time: 14:58 [facility] 04/17 14:01 Order name: O2 Sat Monitoring; Complete Time: 14:58 [facility] 04/17 14:01 Order name: Urine Dipstick-Ancillary (obtain specimen); Complete Time: 14:58 [facility] 04/17 15:35 Order name: Orthostatics; Complete Time: 16:47 [facility] Administered Medications: 14:58 Drug: NS 0.9% 1000 ml Route: IV; Rate: 1 bolus; Site: right wrist; em 16:51 Follow up: IV Status: Completed infusion; IV Intake: 1000ml em 15:34 Drug: Rocephin 1 grams Route: IV; Rate: per protocol; Site: right wrist; ss 15:40 Follow up: Response: No adverse reaction; IV Status: Completed infusion; IV Intake: 10mlem Point of Care Testing: Blood Glucose: 13:04 Blood Glucose: 184 mg/dL; sv Ranges: Critical Glucose Levels:Adult <50 mg/dl or >400 mg/dl <40 mg/dl or >180 mg/dl Disposition: 04/17/19 15:35 Discharged to Home. Impression: Urinary tract infection, site not specified, Weakness, Type 1 diabetes mellitus. - Condition is Stable. - Discharge Instructions: Dysuria, Near-Syncope, Urinary Tract Infection, Adult, Weakness, Fatigue, Near-Syncope, [id number], Weakness, [id number]. - Prescriptions for Cipro 500 mg Oral Tablet - take 1 tablet by ORAL route every 12 hours for 7 days; 14 tablet. - Medication Reconciliation Form, Thank You Letter, Antibiotic Education, Prescription Opioid Use form. - Follow up: Private Physician; When: 2 - 3 days; Reason: Recheck today's complaints, Continuance of care, Re-evaluation by your physician. - Problem is new. - Symptoms have improved. Signatures: Dispatcher [employer] Karolyn Velasquez, RN RN Dontae Thompson MD MD cha Munoz, Kem, STREET CLEANING EQUIPMENT OPERATOR STRE[employer] CLE[employer]ING EQUIPMENT OPERATOR em Cindy Raman RN RN ss Corrections: (The following items were deleted from the chart) 15:36 15:35 04/17/2019 15:35 Discharged to Home. Impression: Urinary tract infection, site abebe not specified; Weakness. Condition is Stable. Discharge Instructions: Dysuria, Near-Syncope, Urinary Tract Infection, Adult, Weakness, Fatigue, Near-Syncope, Vlrb-[id number], Weakness, Yvip-[id number]-Jloa. Prescriptions for Cipro 500 mg Oral Tablet - take 1 tablet by ORAL route every 12 hours for 7 days; 14 tablet. and Forms are Medication Reconciliation Form, Thank You Letter, Antibiotic Education, Prescription Opioid Use. Follow up: Private Physician; When: 2 - 3 days; Reason: Recheck today's complaints, Continuance of care, Re-evaluation by your physician. Problem is new. Symptoms have improved. [facility] 16:56 15:36 04/17/2019 15:35 Discharged to Home. Impression: Urinary tract infection, site em not specified; Weakness; Type 1 diabetes mellitus. Condition is Stable. Discharge Instructions: Dysuria, Near-Syncope, Urinary Tract Infection, Adult, Weakness, Fatigue, Near-Syncope, [id number]-ru-Qumn, Weakness, Ziiy-[id number]. Prescriptions for Cipro 500 mg Oral Tablet - take 1 tablet by ORAL route every 12 hours for 7 days; 14 tablet. and Forms are Medication Reconciliation Form, Thank You Letter, Antibiotic Education, Prescription Opioid Use. Follow up: Private Physician; When: 2 - 3 days; Reason: Recheck today's complaints, Continuance of care, Re-evaluation by your physician. Problem is new. Symptoms have improved. abebe
[2019-04-17 17:19] VITALS: TEMP 98; O2SAT 100
[2019-04-17 17:21] VITALS: BP 115/64
--- NOTE | 2019-04-18 06:12 | EKG ---
Test Date: 2019-04-17 Test Time: 14:16:26 Roadability Machine Operator: BRITTANY MEASUREMENT RESULTS: Intervals: Rate: 76 NV: 152 QRSD: 86 QT: 412 QTc: 463 Maurice: P: 59 NV: 152 QRS: 31 T: 37 INTERPRETIVE STATEMENTS: Normal sinus rhythm Normal ECG Compared to ECG 10/17/2018 16:43:36 No significant changes Electronically Signed On 04-18-19 06:12:13 CDT by Benjamín Mendoza
== END 2019-04-17 16:56 | disposition home or self-care (01) ==
LOC: ER 12:42
DX: N39.0 Urinary tract infection, site not specified (principal); E10.9 Type 1 diabetes mellitus without complications; I10 Essential (primary) hypertension; Z88.0 Allergy status to penicillin; Z88.5 Allergy status to narcotic agent; Z88.6 Allergy status to analgesic agent; Z88.8 Allergy status to other drugs, medicaments and biological substances; Z91.013 Allergy to seafood; Z91.018 Allergy to other foods
CPT/HCPCS: 36415; 71045; 80048; 80076; 81003; 81025; 82962; 83690; 83735; 83880; 84484; 85025; 85610; 87077; 87086; 87088; 87186; 93005; 96361; 96374; 99284; J0696; J7030

== ENCOUNTER 2019-05-02 12:08 | Emergency (ER) | payer SELFPAY ==
[2019-05-02 13:36] LABS: Urine Blood NEGATIVE (NEG); Urine Glucose NEGATIVE (NEG); Urine Protein NEGATIVE (NEG); Urine Specific Gravity 1.025 (1.005-1.030); Urine pH 5.5 (5.0-7.0)
[2019-05-02 14:10] LABS: Absolute Lymphocytes (CBC) 1.6 K/uL (0.7-4.9); Basophils % 1.2 % (0-1.3); Hematocrit 43.1 % (36.0-45.0); Lymphocytes % 29.7 % (15.3-44.8); MPV 7.9 fL (7.6-11.3); RBC Red Blood Cell Count 4.87 M/uL (3.86-4.86)
[2019-05-02 14:24] LABS: ALT/SGPT 28 U/L (12-78); AST/SGOT 22 U/L (15-37); Albumin 3.7 g/dL (3.4-5.0); Alkaline Phosphatase 90 U/L (45-117); BUN Blood Urea Nitrogen 15 mg/dL (7-18); Bicarbonate 29 mmol/L (21-32); Bilirubin Direct < 0.1 mg/dL (0-0.2); Bilirubin Total 0.4 mg/dL (0.2-1.0); Glucose Level 98 mg/dL (74-106); Lipase 86 U/L (73-393); Potassium 3.9 mmol/L (3.5-5.1); Protein, Total 7.8 g/dL (6.4-8.2); Sodium Level 139 mmol/L (136-145)
--- NOTE | 2019-05-02 14:25 | RAD REPORT ---
EXAM DESCRIPTION: RAD - Lumbar Spine 3 Views - 05/02/2019 2:04 pm CLINICAL HISTORY: Lumbar pain COMPARISON: December 2016 FINDINGS: A three-view lumbar spine examination was performed. Lumbar bodies are normal in height an d alignment. No fracture or acute bony process seen. No disc space narrowing. Mild facet joint degene rative change present in the lower lumbar spine not substantially different. L5 body is partially sac ralized on the right. No pars defects identified. IMPRESSION: No acute lumbar spine finding seen. No significant change from 2017.
[2019-05-02] MEDS ORDERED: MORPHINE 4 MG/ML SYR ONE (14:32)
--- NOTE | 2019-05-02 14:54 | ER ---
Nurse's Notes [facility] Name: Britt Bower Age: 43 yrs Sex: Female : 1975 Arrival Date: 05/02/2019 Time: 12:11 Bed 6 Private MD: Diagnosis: Cystitis, unspecified without hematuria Presentation: 05/02 12:24 Presenting complaint: Patient states: low back pain and puffiness that began "a few ss weeks ago". Pt reports nausea and vomiting, but believes it is her body's reaction to the pain. Transition of care: patient was not received from another setting of care. Onset of symptoms is unknown. Risk Assessment: Do you want to hurt yourself or someone else? Patient reports no desire to harm self or others. Initial Sepsis Screen: Does the patient meet any 2 criteria? No. Patient's initial sepsis screen is negative. Does the patient have a suspected source of infection? No. Patient's initial sepsis screen is negative. Care prior to arrival: None. 12:24 Method Of Arrival: Ambulatory ss 12:24 Acuity: [facility] 4 ss GOLDBEATER: 12:26 LMP N/A - Hysterectomy ss Historical: - Allergies: 12:26 Amoxicillin; ss 12:26 Aspirin; ss 12:26 Coconut; ss 12:26 diazepam; ss 12:26 Iodine; ss 12:26 Morphine; ss 12:26 Ondansetron HCl; ss 12:26 PENICILLINS; ss 12:26 Piperacillin Sodium; ss 12:26 shrimp; ss 12:26 tazobactam sodium; ss 12:26 Zofran; ss - Home Meds: 14:39 albuterol sulfate 90 mcg/actuation Inhl HFAA [Active]; flonace 2 puffs/day daily tw2 [Active]; gabapentin 600 mg Oral tab 1 tab 3 times per day for Neuropathic Pain [Active]; Humulin 70/30 100 unit/mL (70-30) Sub-Q tab 5 units twice a day for Type 2 Diabetes Mellitus [Active]; levetiracetam 500 mg Oral tab 2 tabs 2 times per day for Tonic-Clonic Epilepsy Treatment Adjunct [Active]; lisinopril 10 mg Oral tab 1 tab once daily [Active]; lisinopril-hydrochlorothiazide 25-30 Oral tab 1 tab once daily for Hypertension [Active]; - PMHx: 12:26 Asthma; Diabetes - IDDM; epilepsy; history of stroke; Hypertension; neuropathy; ss - PSHx: 12:26 Hysterectomy; ; Cholecystectomy; blood clott to left breast.; ss - Immunization history:: Adult Immunizations up to date. - Social history:: Smoking status: Patient/guardian denies using tobacco, Patient/guardian denies using alcohol, street drugs, The patient lives with family. - Ebola Screening: : Patient denies exposure to infectious person Patient denies travel to an Ebola-affected area in the 21 days before illness onset. - Family history:: not pertinent. Screenin:38 Abuse screen: Denies threats or abuse. Nutritional screening: No deficits noted. tw2 Tuberculosis screening: No symptoms or risk factors identified. Fall Risk None identified. Assessment: 12:25 General: Appears in no apparent distress. obese, Behavior is calm, cooperative, tw2 appropriate for age. Pain: Complains of pain in lumbar area, left low back and right low back. Neuro: Level of Consciousness is awake, alert, obeys commands, Oriented to person, place, time, situation. Cardiovascular: Heart tones S1 S2 Patient's skin is warm and dry. Respiratory: Airway is patent Respiratory effort is even, unlabored, Respiratory pattern is regular, symmetrical, Breath sounds are clear bilaterally. GI: No signs and/or symptoms were reported involving the gastrointestinal system. Abdomen is round obese, Bowel sounds present X 4 quads. : No signs and/or symptoms were reported regarding the genitourinary system. EENT: No signs and/or symptoms were reported regarding the EENT system. Derm: No signs and/or symptoms reported regarding the dermatologic system. Musculoskeletal: Circulation, motion, and sensation intact. Range of motion: intact in all extremities, Reports pain in back. 13:13 Reassessment: No changes from previously documented assessment. Patient and/or family tw2 updated on plan of care and expected duration. Pain level reassessed. Patient is alert, oriented x 3, equal unlabored respirations, skin warm/dry/pink. 14:39 Reassessment: Patient appears in no apparent distress at this time. No changes from tw2 previously documented assessment. Patient and/or family updated on plan of care and expected duration. Pain level reassessed. Patient is alert, oriented x 3, equal unlabored respirations, skin warm/dry/pink. 15:00 Reassessment: Patient appears in no apparent distress at this time. No changes from tw2 previously documented assessment. Patient and/or family updated on plan of care and expected duration. Pain level reassessed. Patient is alert, oriented x 3, equal unlabored respirations, skin warm/dry/pink. Vital Signs: 12:26 BP 114 / 84; Pulse 78; Resp 16; Temp 97.6(TE); Pulse Ox 98% on R/A; Weight 101.15 kg; ss Height 5 ft. 10 in. (177.80 cm); Pain 10/10; 13:12 BP 110 / 91; Pulse 71; Resp 17; Pulse Ox 97% on R/A; tw2 14:39 BP 110 / 91; Pulse 74; Resp 17; Pulse Ox 99% on R/A; tw2 12:26 Body Mass Index 32.00 (101.15 kg, 177.80 cm) ED Course: 12:11 Patient arrived in ED. as 12:19 Niki Chiu MD is Attending Physician. ma2 12:20 Bed in low position. Call light in reach. Side rails up X 1. Pulse ox on. NIBP on. tw2 12:24 Kathy Erwin RN is Primary Nurse. tw2 12:25 Triage completed. ss 12:26 Arm band placed on right wrist. ss 13:05 Urine collected: clean catch specimen, cloudy. ms 13:45 Missed attempt(s): 22 gauge in right wrist. Bleeding controlled, band aid applied, aa5 catheter tip intact. 13:45 Initial lab(s) drawn, by me, sent to lab. Missed attempt(s): 24 gauge in right upper aa5 arm. Bleeding controlled, band aid applied, catheter tip intact. 14:04 Lumbar Spine (3 Views) XRAY In Process Unspecified. EDMS 14:22 Missed attempt(s): 24 gauge in left hand. Bleeding controlled, band aid applied, tw2 catheter tip intact. Missed attempt(s): 24 gauge in left hand. charge nurse MERRICK White notified of need for IV at this time.. Bleeding controlled, band aid applied, catheter tip intact. 15:00 No provider procedures requiring assistance completed. Patient did not have IV access tw2 during this emergency room visit. Administered Medications: 14:30 CANCELLED (per Dr. Chiu): morphine 4 mg IVP once; RASS on ADMIN: Combtv4, Very tw2 Agttd3, Agttd2, Rstlss1, AlertClm0, Drwsy-1, Lt Sdtn-2, Mod Sdtn-3, Dp Sdtn-4, UnArsble-5 14:31 CANCELLED (per Dr. Chiu): NS 0.9% 1000 ml IV at 1 bolus Per protocol; 1000 mL bolus tw2 14:35 Drug: morphine 4 mg {Note: RASS 0.} Route: IM; Site: left deltoid; tw2 15:00 Follow up: Response: No adverse reaction; Pain is decreased; RASS: Alert and Calm (0) tw2 Outcome: 14:53 Discharge ordered by . ma2 15:00 Discharged to home ambulatory, with significant other. tw2 15:00 Condition: stable 15:00 Discharge instructions given to patient, significant other, Instructed on discharge instructions, follow up and referral plans. medication usage, Demonstrated understanding of instructions, follow-up care, medications, Prescriptions given X 1. 15:01 Patient left the ED. tw2 Signatures: Dispatcher [employer] EDMS Omayra Thakkar Maria ms Eloisa Quintana, RN RN aa5 Cindy Raman RN RN ss Wise, Tara, RN RN tw2 Apple, MD KEY Prince ny2 Corrections: (The following items were deleted from the chart) 14:24 14:22 Missed attempt(s): 24 gauge in left hand. Bleeding controlled, band aid applied, tw2 catheter tip intact. tw2 14:41 12:25 Musculoskeletal: Reports pain in back tw2 tw2
--- NOTE | 2019-05-02 14:54 | EDPHYS ---
Physician Documentation [facility] Name: Britt Bower Age: 43 yrs Sex: Female : 1975 Arrival Date: 05/02/2019 Time: 12:11 Bed 6 Private MD: ED Physician Niki Chiu HPI: 05/02 14:50 This 43 yrs old Female presents to ER via Ambulatory with complaints of Low ma2 Back Pain. 14:50 The patient presents with pain that is chronic. The symptoms are located in the low ma2 back. Onset: The symptoms/episode began/occurred gradually, 1 week(s) ago. Associated signs and symptoms: Pertinent positives: dysuria, Pertinent negatives: constipation, fever, hematuria, nausea. Severity of symptoms: At their worst the symptoms were mild, in the emergency department the symptoms are unchanged. 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 - Hysterectomy ss Historical: - Allergies: 12:26 Amoxicillin; ss 12:26 Aspirin; ss 12:26 Coconut; ss 12:26 diazepam; ss 12:26 Iodine; ss 12:26 Morphine; ss 12:26 Ondansetron HCl; ss 12:26 PENICILLINS; ss 12:26 Piperacillin Sodium; ss 12:26 shrimp; ss 12:26 tazobactam sodium; ss 12:26 Zofran; ss - Home Meds: 14:39 albuterol sulfate 90 mcg/actuation Inhl HFAA [Active]; flonace 2 puffs/day daily tw2 [Active]; gabapentin 600 mg Oral tab 1 tab 3 times per day for Neuropathic Pain [Active]; Humulin 70/30 100 unit/mL (70-30) Sub-Q tab 5 units twice a day for Type 2 Diabetes Mellitus [Active]; levetiracetam 500 mg Oral tab 2 tabs 2 times per day for Tonic-Clonic Epilepsy Treatment Adjunct [Active]; lisinopril 10 mg Oral tab 1 tab once daily [Active]; lisinopril-hydrochlorothiazide 25-30 Oral tab 1 tab once daily for Hypertension [Active]; - PMHx: 12:26 Asthma; Diabetes - IDDM; epilepsy; history of stroke; Hypertension; neuropathy; ss - PSHx: 12:26 Hysterectomy; ; Cholecystectomy; blood clott to left breast.; ss - Immunization history:: Adult Immunizations up to date. - Social history:: Smoking status: Patient/guardian denies using tobacco, Patient/guardian denies using alcohol, street drugs, The patient lives with family. - Ebola Screening: : Patient denies exposure to infectious person Patient denies travel to an Ebola-affected area in the 21 days before illness onset. - Family history:: not pertinent. ROS: 14:50 Constitutional: Negative for fever, chills, and weight loss. ma2 14:50 All other systems are negative. Exam: 14:50 Constitutional: This is a well developed, well nourished patient who is awake, alert, ma2 and in no acute distress. Head/Face: Normocephalic, atraumatic. Eyes: Pupils equal round and reactive to light, extra-ocular motions intact. Lids and lashes normal. Conjunctiva and sclera are non-icteric and not injected. Cornea within normal limits. Periorbital areas with no swelling, redness, or edema. ENT: Nares patent. No nasal discharge, no septal abnormalities noted. Tympanic membranes are normal and external auditory canals are clear. Oropharynx with no redness, swelling, or masses, exudates, or evidence of obstruction, uvula midline. Mucous membranes moist. Neck: Trachea midline, no thyromegaly or masses palpated, and no cervical lymphadenopathy. Supple, full range of motion without nuchal rigidity, or vertebral point tenderness. No Meningismus. Chest/axilla: Normal chest wall appearance and motion. Nontender with no deformity. No lesions are appreciated. Cardiovascular: Regular rate and rhythm with a normal S1 and S2. No gallops, murmurs, or rubs. Normal PMI, no JVD. No pulse deficits. Respiratory: Lungs have equal breath sounds bilaterally, clear to auscultation and percussion. No rales, rhonchi or wheezes noted. No increased work of breathing, no retractions or nasal flaring. Abdomen/GI: Soft, non-tender, with normal bowel sounds. No distension or tympany. No guarding or rebound. No evidence of tenderness throughout. Back: No spinal tenderness. No costovertebral tenderness. Full range of motion. Skin: Warm, dry with normal turgor. Normal color with no rashes, no lesions, and no evidence of cellulitis. MS/ Extremity: Pulses equal, no cyanosis. Neurovascular intact. Full, normal range of motion. Neuro: Awake and alert, GCS 15, oriented to person, place, time, and situation. Cranial nerves II-XII grossly intact. Motor strength 5/5 in all extremities. Sensory grossly intact. Cerebellar exam normal. Normal gait. Vital Signs: 12:26 BP 114 / 84; Pulse 78; Resp 16; Temp 97.6(TE); Pulse Ox 98% on R/A; Weight 101.15 kg; ss Height 5 ft. 10 in. (177.80 cm); Pain 10/; 13:12 BP 110 / 91; Pulse 71; Resp 17; Pulse Ox 97% on R/A; tw2 14:39 BP 110 / 91; Pulse 74; Resp 17; Pulse Ox 99% on R/A; tw2 12:26 Body Mass Index 32.00 (101.15 kg, 177.80 cm) ss MDM: 12:19 Patient medically screened. [facility] 14:50 Differential diagnosis: strain, contusion, UTI. Data reviewed: vital signs, nurses ar2 notes. Counseling: I had a detailed discussion with the patient and/or guardian regarding: the historical points, exam findings, and any diagnostic results supporting the discharge/admit diagnosis, the presence of at least one elevated blood pressure reading (>120/80) during this emergency department visit, the need for outpatient follow up. Response to treatment: the patient's symptoms have markedly improved after treatment. 14:50 ED course: attempt to get iv twice, she wants im shots . [facility] 05/02 12:46 Order name: Basic Metabolic Panel [facility] 05/02 12:46 Order name: CBC with Diff; Complete Time: 14:20 [facility] 05/02 12:46 Order name: Creatinine for Radiology; Complete Time: 14:20 [facility] 05/02 12:46 Order name: Hepatic Function [facility] 05/02 12:46 Order name: Lipase [facility] 05/02 13:06 Order name: Urine Dipstick--Ancillary (enter results) 05/02 12:46 Order name: Labs collected and sent; Complete Time: 14:35 [facility] 05/02 12:46 Order name: Urine Dipstick-Ancillary (obtain specimen); Complete Time: 13:05 [facility] 05/02 13:03 Order name: Lumbar Spine (3 Views) XRAY ar2 Administered Medications: 14:30 CANCELLED (per Dr. Chiu): morphine 4 mg IVP once; RASS on ADMIN: Combtv4, Very tw2 Agttd3, Agttd2, Rstlss1, AlertClm0, Drwsy-1, Lt Sdtn-2, Mod Sdtn-3, Dp Sdtn-4, UnArsble-5 14:31 CANCELLED (per Dr. Chiu): NS 0.9% 1000 ml IV at 1 bolus Per protocol; 1000 mL bolus tw2 14:35 Drug: morphine 4 mg {Note: RASS 0.} Route: IM; Site: left deltoid; tw2 15:00 Follow up: Response: No adverse reaction; Pain is decreased; RASS: Alert and Calm (0) tw2 Disposition: 05/02/19 14:53 Discharged to Home. Impression: Cystitis, unspecified without hematuria. - Condition is Stable. - Discharge Instructions: Urinary Tract Infection, Adult. - Prescriptions for Levaquin 750 mg Oral Tablet - take 1 tablet by ORAL route once daily for 10 days; 10 tablet. - Work release form, Medication Reconciliation Form, Thank You Letter, Antibiotic Education, Prescription Opioid Use form. - Follow up: Private Physician; When: Tomorrow; Reason: Continuance of care. Signatures: Dispatcher [employer] EDCindy Cole RN RN ss Wise, Tara, RN RN 2 Niki Chiu MD MD [facility] Corrections: (The following items were deleted from the chart) 14:30 13:03 morphine 4 mg IVP once; RASS on ADMIN: Combtv4, Very Agttd3, Agttd2, Rstlss1, tw2 AlertClm0, Drwsy-1, Lt Sdtn-2, Mod Sdtn-3, Dp Sdtn-4, UnArsble-5 ordered. ma2 14:31 13:03 NS 0.9% 1000 ml IV at 1 bolus Per protocol; 1000 mL bolus ordered. [facility] tw2 15:01 14:53 05/02/2019 14:53 Discharged to Home. Impression: Cystitis, unspecified without tw2 hematuria. Condition is Stable. Forms are Medication Reconciliation Form, Thank You Letter, Antibiotic Education, Prescription Opioid Use. Follow up: Private Physician; When: Tomorrow; Reason: Continuance of care. ma2
[2019-05-02 15:12] VITALS: TEMP 97.6
[2019-05-02 15:13] VITALS: BP 110/91
[2019-05-02 15:15] VITALS: O2SAT 99
== END 2019-05-02 15:01 | disposition home or self-care (01) ==
LOC: ER 12:08
DX: N30.90 Cystitis, unspecified without hematuria (principal); I10 Essential (primary) hypertension; J45.909 Unspecified asthma, uncomplicated; E11.40 Type 2 diabetes mellitus with diabetic neuropathy, unspecified; Z88.0 Allergy status to penicillin; Z88.6 Allergy status to analgesic agent; Z88.1 Allergy status to other antibiotic agents; Z91.09 Other allergy status, other than to drugs and biological substances; Z91.018 Allergy to other foods; Z91.013 Allergy to seafood
CPT/HCPCS: 36415; 72100; 80048; 80076; 81003; 83690; 85025; 96372; 99284

== ENCOUNTER 2019-05-10 21:35 | Emergency (ER) | payer SELFPAY ==
--- NOTE | 2019-05-10 22:50 | EDPHYS ---
Physician Documentation [facility] Name: Britt Bower Age: 44 yrs Sex: Female : 1975 Arrival Date: 05/10/2019 Time: 21:40 Bed 6 Private MD: ED Physician Jesus Rizzo HPI: 05/10 22:42 This 44 yrs old Female presents to ER via Ambulatory with complaints of Low snw Back Pain, Abdominal Pain, Breast Problem. 22:42 The patient presents with pain that is chronic. The symptoms are located in the low snw back. The pain does not radiate. 22:43 The patient presents with urinary symptoms, dysuria. Onset: The symptoms/episode snw began/occurred 2 week(s) ago, and became persistent. Modifying factors: The symptoms are alleviated by nothing, the symptoms are aggravated by urinating. Associated signs and symptoms: The patient has no apparent associated signs or symptoms. Severity of symptoms: At their worst the symptoms were mild. The patient has experienced similar episodes in the past, chronically. this is the second visit since Levaquin began for UTI. Culture with sensitivity to Levaquin.. 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 LMP N/A - Hysterectomy lp1 Historical: - Allergies: 22:05 Morphine; lp1 22:05 Aspirin; lp1 22:05 Iodine; lp1 22:05 PENICILLINS; lp1 22:05 Amoxicillin; lp1 22:05 Coconut; lp1 22:05 diazepam; lp1 22:05 Ondansetron HCl; lp1 22:05 Piperacillin Sodium; lp1 22:05 shrimp; lp1 22:05 tazobactam sodium; lp1 22:05 Zofran; lp1 - Home Meds: 22:05 lisinopril-hydrochlorothiazide 20-25 mg oral tab once daily [Active]; lisinopril 10 mg lp1 Oral tab 1 tab nightly [Active]; gabapentin 600 mg Oral tab 1 tab 3 times per day for Neuropathic Pain [Active]; levetiracetam 500 mg Oral tab 1 tab 2 times per day for Tonic-Clonic Epilepsy Treatment Adjunct [Active]; Humulin 70/30 100 unit/mL (70-30) Sub-Q tab for Type 2 Diabetes Mellitus [Active]; - PMHx: 22:05 Asthma; Diabetes - IDDM; epilepsy; history of stroke; Hypertension; neuropathy; lp1 - PSHx: 22:05 Cholecystectomy; Hysterectomy; ; lp1 - Immunization history:: Adult Immunizations up to date. - Social history:: Smoking status: Patient/guardian denies using tobacco. - Ebola Screening: : No symptoms or risks identified at this time. ROS: 22:40 Constitutional: Negative for fever, chills, and weight loss, Eyes: Negative for injury, snw pain, redness, and discharge, ENT: Negative for injury, pain, and discharge, Neck: Negative for injury, pain, and swelling, Cardiovascular: Negative for chest pain, palpitations, and edema, Respiratory: Negative for shortness of breath, cough, wheezing, and pleuritic chest pain, Back: Negative for injury and pain, MS/Extremity: Negative for injury and deformity, Neuro: Negative for headache, weakness, numbness, tingling, and seizure, Psych: Negative for depression, anxiety, suicide ideation, homicidal ideation, and hallucinations. 22:40 Abdomen/GI: Positive for abdominal cramps, dysuria. 22:40 : Positive for urinary symptoms. 22:40 Skin: Positive for bruising to left lateral breast. Exam: 22:40 Head/Face: Normocephalic, atraumatic. Eyes: Pupils equal round and reactive to light, snw extra-ocular motions intact. Lids and lashes normal. Conjunctiva and sclera are non-icteric and not injected. Cornea within normal limits. Periorbital areas with no swelling, redness, or edema. ENT: Nares patent. No nasal discharge, no septal abnormalities noted. Tympanic membranes are normal and external auditory canals are clear. Oropharynx with no redness, swelling, or masses, exudates, or evidence of obstruction, uvula midline. Mucous membranes moist. Neck: Trachea midline, no thyromegaly or masses palpated, and no cervical lymphadenopathy. Supple, full range of motion without nuchal rigidity, or vertebral point tenderness. No Meningismus. Chest/axilla: Normal chest wall appearance and motion. Nontender with no deformity. No lesions are appreciated. Cardiovascular: Regular rate and rhythm with a normal S1 and S2. No gallops, murmurs, or rubs. Normal PMI, no JVD. No pulse deficits. Respiratory: Lungs have equal breath sounds bilaterally, clear to auscultation and percussion. No rales, rhonchi or wheezes noted. No increased work of breathing, no retractions or nasal flaring. Abdomen/GI: Soft, non-tender, with normal bowel sounds. No distension or tympany. No guarding or rebound. No evidence of tenderness throughout. Back: No spinal tenderness. No costovertebral tenderness. Full range of motion. MS/ Extremity: Pulses equal, no cyanosis. Neurovascular intact. Full, normal range of motion. Neuro: Awake and alert, GCS 15, oriented to person, place, time, and situation. Cranial nerves II-XII grossly intact. Motor strength 5/5 in all extremities. Sensory grossly intact. Cerebellar exam normal. Normal gait. Psych: Awake, alert, with orientation to person, place and time. Behavior, mood, and affect are within normal limits. 22:40 Constitutional: The patient appears alert, awake, obese. 22:40 Skin: Appearance: normal except for affected area, injury, two ecchymotic areas to lateral left breast, minimally tender. Vital Signs: 22:00 BP 118 / 66; Pulse 77; Resp 18; Temp 97.6(O); Pulse Ox 99% on R/A; Weight 97.98 kg; lp1 Height 5 ft. 0 in. (152.40 cm); 22:00 Body Mass Index 42.18 (97.98 kg, 152.40 cm) lp1 MDM: 22:14 Patient medically screened. snw 22:50 Data reviewed: vital signs, nurses notes. Data interpreted: Pulse oximetry: on room air snw is 99 %. Interpretation: normal. Counseling: I had a detailed discussion with the patient and/or guardian regarding: the historical points, exam findings, and any diagnostic results supporting the discharge/admit diagnosis, lab results, radiology results, the need for outpatient follow up, to return to the emergency department if symptoms worsen or persist or if there are any questions or concerns that arise at home. Special discussion: Based on the history and exam findings, there is no indication for further emergent testing or inpatient evaluation. I discussed with the patient/guardian the need to see the primary care provider for further evaluation of the symptoms. 05/10 22:42 Order name: Urine Dipstick--Ancillary (enter results) mt 05/10 22:42 Order name: Urine --Ancillary (enter results) mt 05/10 22:20 Order name: US Extrmty Nonvasular Limited snw Administered Medications: No medications were administered Disposition: 05/11 02:35 Co-signature as Attending Physician, Jesus Rizzo MD I agree with the assessment and tw4 plan of care. Disposition: 05/10/19 22:49 Discharged to Home. Impression: Dysuria, Malaise and fatigue. - Condition is Stable. - Discharge Instructions: Dysuria, Fatigue, Heat Therapy. - Prescriptions for promethazine 25 mg Oral Tablet - take 1 tablet by ORAL route every 6 hours As needed; 20 tablet. - Medication Reconciliation Form, Thank You Letter, Antibiotic Education, Prescription Opioid Use, Work release form form. - Follow up: Private Physician; When: 2 - 3 days; Reason: Recheck today's complaints, Continuance of care, Re-evaluation by your physician. Follow up: Emergency Department; When: As needed; Reason: Worsening of condition. Signatures: Dispatcher [employer] EDMO Eryn Zhou, YI-C HEEL SEAT POUNDER-Cs[employer] Monica Villa, RN RN lp1 Neptali Meng RN RN Jesus Schreiber MD MD tw4 Corrections: (The following items were deleted from the chart) 05/10 23:49 22:49 05/10/2019 22:49 Discharged to Home. Impression: Dysuria; Malaise and fatigue. ao Condition is Stable. Discharge Instructions: Dysuria, Fatigue. Prescriptions for promethazine 25 mg Oral Tablet - take 1 tablet by ORAL route every 6 hours As needed; 20 tablet. and Forms are Medication Reconciliation Form, Thank You Letter, Antibiotic Education, Prescription Opioid Use. Follow up: Private Physician; When: 2 - 3 days; Reason: Recheck today's complaints, Continuance of care, Re-evaluation by your physician. Follow up: Emergency Department; When: As needed; Reason: Worsening of condition. snw
--- NOTE | 2019-05-10 22:50 | ER ---
Nurse's Notes [facility] Name: Britt Bower Age: 44 yrs Sex: Female : 1975 Arrival Date: 05/10/2019 Time: 21:40 Bed 6 Private MD: Diagnosis: Dysuria;Malaise and fatigue Presentation: 05/10 21:58 Presenting complaint: Patient states: pain when urinating, left flank pain, currently lp1 taking Levaquin for UTI with no relief; States pain to L breast, has had hx of blood clot to L breast. Transition of care: patient was not received from another setting of care. Onset of symptoms was May 10, 2019. Risk Assessment: Do you want to hurt yourself or someone else? Patient reports no desire to harm self or others. Initial Sepsis Screen: Does the patient meet any 2 criteria? No. Patient's initial sepsis screen is negative. Does the patient have a suspected source of infection? No. Patient's initial sepsis screen is negative. Care prior to arrival: None. 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 lp1 Historical: - Allergies: 22:05 Morphine; lp1 22:05 Aspirin; lp1 22:05 Iodine; lp1 22:05 PENICILLINS; lp1 22:05 Amoxicillin; lp1 22:05 Coconut; lp1 22:05 diazepam; lp1 22:05 Ondansetron HCl; lp1 22:05 Piperacillin Sodium; lp1 22:05 shrimp; lp1 22:05 tazobactam sodium; lp1 22:05 Zofran; lp1 - Home Meds: 22:05 lisinopril-hydrochlorothiazide 20-25 mg oral tab once daily [Active]; lisinopril 10 mg lp1 Oral tab 1 tab nightly [Active]; gabapentin 600 mg Oral tab 1 tab 3 times per day for Neuropathic Pain [Active]; levetiracetam 500 mg Oral tab 1 tab 2 times per day for Tonic-Clonic Epilepsy Treatment Adjunct [Active]; Humulin 70/30 100 unit/mL (70-30) Sub-Q tab for Type 2 Diabetes Mellitus [Active]; - PMHx: 22:05 Asthma; Diabetes - IDDM; epilepsy; history of stroke; Hypertension; neuropathy; lp1 - PSHx: 22:05 Cholecystectomy; Hysterectomy; ; lp1 - Immunization history:: Adult Immunizations up to date. - Social history:: Smoking status: Patient/guardian denies using tobacco. - Ebola Screening: : No symptoms or risks identified at this time. Screenin:05 Abuse screen: Denies threats or abuse. Denies injuries from another. Nutritional lp1 screening: No deficits noted. Tuberculosis screening: No symptoms or risk factors identified. Fall Risk None identified. Assessment: 22:03 General: Appears in no apparent distress. uncomfortable, Behavior is calm, cooperative, ao appropriate for age. Pain: Complains of pain in back. Neuro: Level of Consciousness is awake, alert, obeys commands, Oriented to person, place, time, situation, Appropriate for age Moves all extremities. Weakness Speech is normal, Facial symmetry appears normal. Cardiovascular: Capillary refill < 3 seconds Patient's skin is warm and dry. Respiratory: Airway is patent Respiratory effort is even, unlabored, Respiratory pattern is regular, symmetrical. GI: Abdomen is flat, Bowel sounds present X 4 quads. Abd is soft and non tender X 4 quads. Abd is non tender. : No signs and/or symptoms were reported regarding the genitourinary system. EENT: No signs and/or symptoms were reported regarding the EENT system. Derm: Skin is intact, Skin is pink, warm \T\ dry. normal. Musculoskeletal: Circulation, motion, and sensation intact. Range of motion: intact in all extremities. 23:05 Reassessment: Patient appears in no apparent distress at this time. Patient and/or ao family updated on plan of care and expected duration. Pain level reassessed. Waiting on DC orders. 23:25 Reassessment: YI Hercules at bedside talking to patient. ao 23:48 Reassessment: Dc home. Dc instructions given to patient. Patient agree with POC and to ao follow up with PCP. Vital Signs: 22:00 BP 118 / 66; Pulse 77; Resp 18; Temp 97.6(O); Pulse Ox 99% on R/A; Weight 97.98 kg; lp1 Height 5 ft. 0 in. (152.40 cm); 22:00 Body Mass Index 42.18 (97.98 kg, 152.40 cm) lp1 ED Course: 21:40 Patient arrived in ED. cf2 22:00 Triage completed. lp1 22:01 Eryn Zhou FNP-C is [facility]. snw 22:01 Jesus Rizzo MD is Attending Physician. snw 22:02 Neptali Meng, RN is Primary Nurse. ao 22:02 Arm band placed on. lp1 22:07 Patient has correct armband on for positive identification. Pulse ox on. NIBP on. ao 22:51 US Extrmty Nonvasular Limited In Process Unspecified. EDMS 23:49 No provider procedures requiring assistance completed. Patient did not have IV access ao during this emergency room visit. Administered Medications: No medications were administered Outcome: :49 Discharge ordered by . snw 23:49 Discharged to home ambulatory. ao 23:49 Condition: stable 23:49 Discharge instructions given to patient, Instructed on discharge instructions, follow up and referral plans. Demonstrated understanding of instructions, follow-up care, Prescriptions given X 1. 23:49 Patient left the ED. ao Signatures: Dispatcher [employer] EDOH Eryn Zhou FNP-C MANAGER TECHNICAL TRAINING-Csnw Monica Villa RN RN lp1 Neptali Meng, RN RN ao Laura Tirado cf2
[2019-05-11 01:04] VITALS: BP 118/66; TEMP 97.6; O2SAT 99
[2019-05-11 01:13] LABS: Urine Blood NEGATIVE (NEG); Urine Glucose NEGATIVE (NEG); Urine Protein NEGATIVE (NEG)
--- NOTE | 2019-05-11 08:03 | RAD REPORT ---
EXAM DESCRIPTION: US - Extremity Nonvascular Limited - 05/10/2019 10:51 pm CLINICAL HISTORY: Left breast pain, swelling and redness COMPARISON: 2018 FINDINGS: Sonographic evaluation of the outer left breast does not demonstrate a cystic or solid mas s. A fluid collection not visualized. IMPRESSION: No sonographic abnormality seen to explain the pain and redness within the outer left br east. If this persists then a diagnostic mammogram would be recommended for further evaluation
== END 2019-05-10 23:49 | disposition home or self-care (01) ==
LOC: ER 21:35
DX: R53.81 Other malaise (principal); R53.83 Other fatigue; I10 Essential (primary) hypertension; G40.909 Epilepsy, unspecified, not intractable, without status epilepticus; E11.9 Type 2 diabetes mellitus without complications; Z79.4 Long term (current) use of insulin; Z86.73 Personal history of transient ischemic attack (TIA), and cerebral infarction without residual deficits; Z88.0 Allergy status to penicillin; Z88.1 Allergy status to other antibiotic agents; Z88.5 Allergy status to narcotic agent; Z88.6 Allergy status to analgesic agent; Z88.8 Allergy status to other drugs, medicaments and biological substances; Z91.013 Allergy to seafood; Z91.018 Allergy to other foods
CPT/HCPCS: 76882; 81003; 81025; 99283

== ENCOUNTER 2019-05-17 20:42 | Emergency (ER) | payer SELFPAY ==
[2019-05-17] MEDS ORDERED: KETOROLAC 30 MG/ML INJ ONE (23:50)
--- NOTE | 2019-05-17 23:51 | ER ---
Nurse's Notes [facility] Name: Britt Bower Age: 44 yrs Sex: Female : 1975 Arrival Date: 05/17/2019 Time: 20:44 Bed 26 Private MD: Diagnosis: PERIPHERAL NEUROPATHY Presentation: 05/17 20:56 Presenting complaint: Patient states: I have pain in my left arm that started today and tl1 now my right arm feels like it has a charley horse in it. I had an ultrasound under my left arm and they said I had a blood clot. i just don't feel right. Transition of care: patient was not received from another setting of care. Onset of symptoms was May 17, 2019. Risk Assessment: Do you want to hurt yourself or someone else? Patient reports no desire to harm self or others. Initial Sepsis Screen: Does the patient meet any 2 criteria? No. Patient's initial sepsis screen is negative. Does the patient have a suspected source of infection? No. Patient's initial sepsis screen is negative. Care prior to arrival: None. 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 LMP N/A - Hysterectomy tl1 Historical: - Allergies: 21:00 Amoxicillin; tl1 21:00 Aspirin; tl1 21:00 Coconut; tl1 21:00 diazepam; tl1 21:00 Iodine; tl1 21:00 Morphine; tl1 21:00 Ondansetron HCl; tl1 21:00 PENICILLINS; tl1 21:00 Piperacillin Sodium; tl1 21:00 shrimp; tl1 21:00 tazobactam sodium; tl1 21:00 Zofran; tl1 - Home Meds: 21:00 gabapentin 600 mg Oral tab 1 tab 3 times per day for Neuropathic Pain [Active]; Humulin tl1 70/30 100 unit/mL (70-30) Sub-Q tab for Type 2 Diabetes Mellitus [Active]; lisinopril-hydrochlorothiazide 20-25 mg Oral tab once daily for Hypertension [Active]; lisinopril 10 mg Oral tab 1 tab nightly [Active]; levetiracetam 500 mg Oral tab 1 tab 2 times per day for Tonic-Clonic Epilepsy Treatment Adjunct [Active]; - PMHx: 21:00 Asthma; Diabetes - IDDM; epilepsy; history of stroke; Hypertension; neuropathy; tl1 - PSHx: 21:00 ; I\T\D; Cholecystectomy; Hysterectomy; tl1 - Immunization history:: Adult Immunizations up to date. - Social history:: Smoking status: Patient/guardian denies using tobacco, Patient/guardian denies using alcohol, street drugs. - Ebola Screening: : Patient negative for fever greater than or equal to 101.5 degrees Fahrenheit, and additional compatible Ebola Virus Disease symptoms Patient denies exposure to infectious person Patient denies travel to an Ebola-affected area in the 21 days before illness onset. Screenin:18 Abuse screen: Denies threats or abuse. Denies injuries from another. Nutritional mg2 screening: No deficits noted. Tuberculosis screening: No symptoms or risk factors identified. Fall Risk No IV (0 pts). Assessment: 22:16 General: Appears in no apparent distress. comfortable, Behavior is calm, cooperative. mg2 Pain: Complains of pain in right arm Pain does not radiate. Pain currently is 3 out of 10 on a pain scale. Quality of pain is described as aching, Pain began gradually, Is intermittent. Neuro: Level of Consciousness is awake, alert, obeys commands, Oriented to person, place, time, situation. Cardiovascular: Capillary refill < 3 seconds Patient's skin is warm and dry. Respiratory: Airway is patent Respiratory effort is even, unlabored, Respiratory pattern is regular, symmetrical. GI: No signs and/or symptoms were reported involving the gastrointestinal system. : No signs and/or symptoms were reported regarding the genitourinary system. EENT: No signs and/or symptoms were reported regarding the EENT system. Derm: Skin is intact, is healthy with good turgor, Skin is pink, warm \T\ dry. normal, Bruising that is brown, on right arm. Musculoskeletal: Circulation, motion, and sensation intact. Capillary refill < 3 seconds, Reports numbness in right arm. Vital Signs: 21:00 BP 98 / 64; Pulse 86; Resp 17; Temp 97.8(O); Pulse Ox 97% on R/A; Weight 97.98 kg; tl1 Height 5 ft. (152.40 cm); Pain 10/10; 22:19 BP 127 / 64; Pulse 80; Resp 18; Pulse Ox 100% ; mg2 05/18 00:00 BP 122 / 78; Pulse 81; Resp 18; Temp 98; Pulse Ox 100% on R/A; mg2 05/17 21:00 Body Mass Index 42.18 (97.98 kg, 152.40 cm) tl1 ED Course: 05/17 20:44 Patient arrived in ED. cl3 20:58 Triage completed. tl1 21:01 Arm band placed on right wrist. tl1 21:41 Jesus Rizzo MD is Attending Physician. tw4 22:15 Rafi oConey, RN is Primary Nurse. mg2 22:18 No provider procedures requiring assistance completed. Patient did not have IV access mg2 during this emergency room visit. 22:19 Patient has correct armband on for positive identification. mg2 22:32 CT C Spine In Process Unspecified. EDMS Administered Medications: 23:53 Drug: TORadol 60 mg Route: IM; Site: left gluteus; mg2 23:54 Follow up: Response: No adverse reaction; Medication administered at discharge. mg2 Outcome: 23:50 Discharge ordered by . tw4 05/18 00:00 Discharged to home ambulatory, with family. mg2 Condition: stable Discharge instructions given to patient, family, Instructed on discharge instructions, follow up and referral plans. Demonstrated understanding of instructions, follow-up care. 00:01 Patient left the ED. mg2 Signatures: Dispatcher [employer] EDMS Vanesa Henley RN RN tl1 Jesus Rizzo MD MD tw4 Rafi Cooney RN RN mg2 Donald Eden cl3
--- NOTE | 2019-05-17 23:51 | EDPHYS ---
Physician Documentation [facility] Name: Britt Bower Age: 44 yrs Sex: Female : 1975 Arrival Date: 05/17/2019 Time: 20:44 Bed 26 Private MD: ED Physician Jesus Rizzo HPI: 05/18 01:49 This 44 yrs old Female presents to ER via Ambulatory with complaints of Arm tw4 Pain, Numbness Of Arm. 01:49 The patient or guardian complains of pain, that is acute. The complaints affect the tw4 palmar aspect of right forearm, anterior aspect of left shoulder. Context: The problem was sustained at home. 01:50 Onset: The symptoms/episode began/occurred today. Modifying factors: The symptoms are tw4 alleviated by nothing. the symptoms are aggravated by nothing. Associated signs and symptoms: The patient has no apparent associated signs or symptoms. The patient has not experienced similar symptoms in the past. 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 LMP N/A - Hysterectomy tl1 Historical: - Allergies: 21:00 Amoxicillin; tl1 21:00 Aspirin; tl1 21:00 Coconut; tl1 21:00 diazepam; tl1 21:00 Iodine; tl1 21:00 Morphine; tl1 21:00 Ondansetron HCl; tl1 21:00 PENICILLINS; tl1 21:00 Piperacillin Sodium; tl1 21:00 shrimp; tl1 21:00 tazobactam sodium; tl1 21:00 Zofran; tl1 - Home Meds: 21:00 gabapentin 600 mg Oral tab 1 tab 3 times per day for Neuropathic Pain [Active]; Humulin tl1 70/30 100 unit/mL (70-30) Sub-Q tab for Type 2 Diabetes Mellitus [Active]; lisinopril-hydrochlorothiazide 20-25 mg Oral tab once daily for Hypertension [Active]; lisinopril 10 mg Oral tab 1 tab nightly [Active]; levetiracetam 500 mg Oral tab 1 tab 2 times per day for Tonic-Clonic Epilepsy Treatment Adjunct [Active]; - PMHx: 21:00 Asthma; Diabetes - IDDM; epilepsy; history of stroke; Hypertension; neuropathy; tl1 - PSHx: 21:00 ; I\T\D; Cholecystectomy; Hysterectomy; tl1 - Immunization history:: Adult Immunizations up to date. - Social history:: Smoking status: Patient/guardian denies using tobacco, Patient/guardian denies using alcohol, street drugs. - Ebola Screening: : Patient negative for fever greater than or equal to 101.5 degrees Fahrenheit, and additional compatible Ebola Virus Disease symptoms Patient denies exposure to infectious person Patient denies travel to an Ebola-affected area in the 21 days before illness onset. ROS: 05/18 01:50 Constitutional: Negative for fever, chills, and weight loss, Eyes: Negative for injury, tw4 pain, redness, and discharge, Cardiovascular: Negative for chest pain, palpitations, and edema, Respiratory: Negative for shortness of breath, cough, wheezing, and pleuritic chest pain, Abdomen/GI: Negative for abdominal pain, nausea, vomiting, diarrhea, and constipation, Skin: Negative for injury, rash, and discoloration, Neuro: Negative for headache, weakness, numbness, tingling, and seizure. MS/extremity: Positive for pain, paresthesias, Negative for injury or acute deformity, abrasion, decreased range of motion, deformity, ecchymosis, erythema, laceration, puncture, rash, swelling, tenderness, tingling, warmth. Exam: 01:50 Constitutional: This is a well developed, well nourished patient who is awake, alert, tw4 and in no acute distress. Head/Face: Normocephalic, atraumatic. Chest/axilla: Normal chest wall appearance and motion. Nontender with no deformity. No lesions are appreciated. Cardiovascular: Regular rate and rhythm with a normal S1 and S2. No gallops, murmurs, or rubs. Normal PMI, no JVD. No pulse deficits. Respiratory: Lungs have equal breath sounds bilaterally, clear to auscultation and percussion. No rales, rhonchi or wheezes noted. No increased work of breathing, no retractions or nasal flaring. Abdomen/GI: Soft, non-tender, with normal bowel sounds. No distension or tympany. No guarding or rebound. No evidence of tenderness throughout. Skin: Warm, dry with normal turgor. Normal color with no rashes, no lesions, and no evidence of cellulitis. MS/ Extremity: Pulses equal, no cyanosis. Neurovascular intact. Full, normal range of motion. Neuro: Awake and alert, GCS 15, oriented to person, place, time, and situation. Cranial nerves II-XII grossly intact. Motor strength 5/5 in all extremities. Sensory grossly intact. Cerebellar exam normal. Normal gait. Vital Signs: 05/17 21:00 BP 98 / 64; Pulse 86; Resp 17; Temp 97.8(O); Pulse Ox 97% on R/A; Weight 97.98 kg; tl1 Height 5 ft. (152.40 cm); Pain 04/28; 22:19 BP 127 / 64; Pulse 80; Resp 18; Pulse Ox 100% ; mg2 05/18 00:00 BP 122 / 78; Pulse 81; Resp 18; Temp 98; Pulse Ox 100% on R/A; mg2 05/17 21:00 Body Mass Index 42.18 (97.98 kg, 152.40 cm) tl1 MDM: 05/17 21:42 Patient medically screened. tw4 05/18 01:50 Data reviewed: vital signs, nurses notes. tw4 05/17 21:43 Order name: CT C Spine tw4 Administered Medications: 05/17 23:53 Drug: TORadol 60 mg Route: IM; Site: left gluteus; mg2 23:54 Follow up: Response: No adverse reaction; Medication administered at discharge. mg2 Disposition: 05/17/19 23:50 Discharged to Home. Impression: PERIPHERAL NEUROPATHY. - Condition is Stable. - Discharge Instructions: Neuropathic Pain, Peripheral Neuropathy. - Medication Reconciliation Form, Thank You Letter, Antibiotic Education, Prescription Opioid Use form. - Follow up: Private Physician; When: Upon discharge from the Emergency Department; Reason: Recheck today's complaints, Continuance of care. - Problem is new. - Symptoms have improved. Signatures: Dispatcher [employer] EDMS Vanesa Henley RN RN tl1 Jesus Rizzo MD MD tw4 Rafi Cooney RN RN mg2 Corrections: (The following items were deleted from the chart) 05/18 00:01 05/17 23:50 05/17/2019 23:50 Discharged to Home. Impression: PERIPHERAL NEUROPATHY. mg2 Condition is Stable. Forms are Medication Reconciliation Form, Thank You Letter, Antibiotic Education, Prescription Opioid Use. Follow up: Private Physician; When: Upon discharge from the Emergency Department; Reason: Recheck today's complaints, Continuance of care. Problem is new. Symptoms have improved. 05/18 01:51 01:49 Onset: The symptoms/episode began/occurred yesterday,
[2019-05-18 00:53] VITALS: O2SAT 100
[2019-05-18 00:54] VITALS: BP 122/78; TEMP 98
--- NOTE | 2019-05-18 11:02 | RAD REPORT ---
EXAM DESCRIPTION: CT Cervical Spine Without Intravenous Contrast CLINICAL HISTORY: The patient is 44 years old and is Female; PAIN TECHNIQUE: Axial computed tomography images of the cervical spine without intravenous contrast. Sa gittal and coronal reformatted images were created and reviewed. This CT exam was performed using o ne or more of the following dose reduction techniques: automated exposure control, adjustment of th e mA and/or kV according to patient size, and/or use of iterative reconstruction technique. COMPARISON: No relevant prior studies available. FINDINGS: Vertebrae: Straightening of cervical spine may be positional or due to muscle spasm. Intraosseous hypodensity with coarse trabecula, likely vertebral body hemangioma at C6. No acute fracture. Discs/spinal canal/neural foramina: Disc height loss at C5/6 and C6-7. No spinal canal stenosis. Soft tissues: Unremarkable. IMPRESSION: 1. No acute spine osseous abnormality. No fracture or subluxation. 2. Straightening of cervical spine may be positional or due to muscle spasm. 3. Disc height loss at C5/6 and C6-7. MRI may be obtained for further evaluation as clinically david anted. Electronically signed by: Emery Verdin MD 05/17/2019 10:57 PM CDT Due to temporary technical issues with the PACS/Fluency reporting system, reports are being signed by the in house radiologist as a courtesy to ensure prompt reporting. The interpreting radiologist is f ully responsible for the content of the report.
== END 2019-05-18 00:01 | disposition home or self-care (01) ==
LOC: ER 20:42
DX: G62.9 Polyneuropathy, unspecified (principal); E11.9 Type 2 diabetes mellitus without complications; I10 Essential (primary) hypertension; G40.909 Epilepsy, unspecified, not intractable, without status epilepticus; Z88.6 Allergy status to analgesic agent; Z88.1 Allergy status to other antibiotic agents; Z91.09 Other allergy status, other than to drugs and biological substances; Z91.018 Allergy to other foods; Z88.0 Allergy status to penicillin; Z91.013 Allergy to seafood; Z88.8 Allergy status to other drugs, medicaments and biological substances
CPT/HCPCS: 72125; 96372; 99283

== ENCOUNTER 2019-05-19 19:44 | Emergency (ER) | payer SELFPAY ==
[2019-05-19 21:54] LABS: Absolute Lymphocytes (CBC) 2.1 K/uL (0.7-4.9); MPV 7.5 fL (7.6-11.3); RBC Red Blood Cell Count 4.28 M/uL (3.86-4.86)
[2019-05-19 21:56] LABS: Protime INR 0.94
[2019-05-19 22:11] LABS: ALT/SGPT 29 U/L (12-78); AST/SGOT 22 U/L (15-37); Albumin 3.6 g/dL (3.4-5.0); Alkaline Phosphatase 85 U/L (45-117); BUN Blood Urea Nitrogen 15 mg/dL (7-18); Bicarbonate 28 mmol/L (21-32); Bilirubin Direct < 0.1 mg/dL (0-0.2); Bilirubin Total 0.2 mg/dL (0.2-1.0); Glucose Level 117 mg/dL (74-106); NT PRO-BNP 143 pg/mL (<125); Potassium 3.5 mmol/L (3.5-5.1); Protein, Total 7.4 g/dL (6.4-8.2); Sodium Level 143 mmol/L (136-145); Troponin (Emerg Dept Use Only) < 0.02 ng/mL (0.0-0.045)
[2019-05-19 22:16] LABS: Urine Blood NEGATIVE (NEG); Urine Glucose NEGATIVE (NEG); Urine Protein NEGATIVE (NEG); Urine Specific Gravity 1.025 (1.005-1.030)
--- NOTE | 2019-05-19 22:51 | ER ---
Nurse's Notes [facility] Name: Britt Bower Age: 44 yrs Sex: Female : 1975 Arrival Date: 05/19/2019 Time: 19:47 Bed 6 Private MD: CHARISSE CORDOBA Diagnosis: Pain in left arm Presentation: 05/19 19:49 Presenting complaint: Patient states: "My right arm and hand started feeling numbness jd3 and feelings of having a charley horses that started this afternoon at 1500 or so. I felt faint and had to have help getting up off the toilet.". Transition of care: patient was not received from another setting of care. Onset of symptoms was May 19, 2019. Risk Assessment: Do you want to hurt yourself or someone else? Patient reports no desire to harm self or others. Initial Sepsis Screen: Does the patient meet any 2 criteria? No. Patient's initial sepsis screen is negative. Does the patient have a suspected source of infection? No. Patient's initial sepsis screen is negative. Care prior to arrival: None. 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 LMP N/A - Hysterectomy jd3 Historical: - Allergies: 19:53 Amoxicillin; jd3 19:53 Aspirin; jd3 19:53 Coconut; jd3 19:53 diazepam; jd3 19:53 Iodine; jd3 19:53 Morphine; jd3 19:53 Ondansetron HCl; jd3 19:53 PENICILLINS; jd3 19:53 Piperacillin Sodium; jd3 19:53 shrimp; jd3 19:53 tazobactam sodium; jd3 19:53 Zofran; jd3 - Home Meds: 19:53 gabapentin 600 mg Oral tab 1 tab 3 times per day for Neuropathic Pain [Active]; Humulin jd3 70/30 100 unit/mL (70-30) Sub-Q tab for Type 2 Diabetes Mellitus [Active]; levetiracetam 500 mg Oral tab 1 tab 2 times per day for Tonic-Clonic Epilepsy Treatment Adjunct [Active]; lisinopril 10 mg Oral tab 1 tab nightly [Active]; lisinopril-hydrochlorothiazide 20-25 mg Oral tab once daily for Hypertension [Active]; - PMHx: 19:53 Asthma; Diabetes - IDDM; epilepsy; history of stroke; Hypertension; neuropathy; jd3 - PSHx: 19:53 ; I\\T\\D; Cholecystectomy; Hysterectomy; jd3 - Immunization history:: Adult Immunizations up to date, Pneumococcal vaccine is not up to date. - Social history:: Smoking status: Patient/guardian denies using tobacco. - Ebola Screening: : Patient negative for fever greater than or equal to 101.5 degrees Fahrenheit, and additional compatible Ebola Virus Disease symptoms. - Family history:: not pertinent. Screenin:15 VAN Screening: Arm Drift: Patient shows no arm weakness. Patient is VAN negative. lp1 20:20 Abuse screen: Denies threats or abuse. Denies injuries from another. Nutritional lp1 screening: No deficits noted. Tuberculosis screening: No symptoms or risk factors identified. Fall Risk None identified. Assessment: 20:10 General: Appears in no apparent distress. comfortable, Behavior is cooperative, lp1 appropriate for age. Pain: Complains of pain in right shoulder Pain radiates to right arm Pain currently is 8 out of 10 on a pain scale. Quality of pain is described as sharp. Neuro: Level of Consciousness is awake, alert, obeys commands, Oriented to person, place, time, situation, Apparatus Operator are equal bilaterally Gait is steady, Speech is normal, Pupils are PERRLA, Intact. Cardiovascular: Patient's skin is warm and dry. Respiratory: Respiratory effort is even, unlabored. GI: No signs and/or symptoms were reported involving the gastrointestinal system. : No signs and/or symptoms were reported regarding the genitourinary system. EENT: No signs and/or symptoms were reported regarding the EENT system. Derm: Skin is pink, warm \\T\\ dry. Musculoskeletal: Range of motion: intact in all extremities. 21:00 Reassessment: Patient appears in no apparent distress at this time. No changes from lp1 previously documented assessment. Provider at bedside. 23:08 Reassessment: Patient appears in no apparent distress at this time. Patient is alert, lp1 oriented x 3, equal unlabored respirations, skin warm/dry/pink. Vital Signs: 19:53 BP 141 / 88; Pulse 74; Resp 18 S; Temp 97.3(TE); Pulse Ox 100% on R/A; Weight 95.25 kg jd3 (R); Height 5 ft. 0 in. (152.40 cm) (R); Pain 10/10; 22:00 BP 120 / 70; Pulse 78; Resp 20; Pulse Ox 100% on R/A; lp1 23:08 BP 123 / 75; Pulse 83; Resp 20; Pulse Ox 99% on R/A; lp1 19:53 Body Mass Index 41.01 (95.25 kg, 152.40 cm) jd3 NIH Stroke Scale Scores: 21:12 NIHSS Score: 0 [facility] ED Course: 19:47 Patient arrived in ED. es 19:48 CHARISSE CORDOBA is Private Physician. es 19:52 Triage completed. jd3 19:53 Dontae López MD is Attending Physician. abebe 19:55 Arm band placed on. jd3 20:00 Monica Villa, MERRICK is Primary Nurse. lp1 20:20 Patient has correct armband on for positive identification. lp1 21:28 Missed attempt(s): 24 gauge in left forearm. lp1 21:39 XRAY Chest (1 view) In Process Unspecified. EDMS 21:45 Inserted saline lock: 22 gauge in right hand, using aseptic technique. Blood collected. lp1 22:50 CHARISSE CORDOBA is Referral Physician. abebe 23:08 No provider procedures requiring assistance completed. IV discontinued, No lp1 redness/swelling at site. Pressure dressing applied. Administered Medications: No medications were administered Outcome: 22:50 Discharge ordered by . abebe 23:08 Discharged to home ambulatory, with family. lp1 23:08 Condition: good 23:08 Discharge instructions given to patient, Instructed on discharge instructions, follow up and referral plans. Demonstrated understanding of instructions, follow-up care. 23:09 Patient left the ED. lp1 NIH Stroke Scale - NIH Stroke Score Date: 05/19/2019 Time: 21:12 Total Score = 0 1a. Level of Consciousness (LOC) - 0(Alert) 1b. Level of Consciousness (LOC) (Year \\T\\ Age) - 0(Both) 1c. LOC Commands (Open \\T\\ Closes Eyes/Automotive Worker) - 0(Both) 2. Best Gaze (Lateral Gaze Paresis) - 0(Normal) 3. Visual Field Loss - 0(No visual loss) 4. Facial Palsy - 0(Normal) 5a. Left Arm: Motor (10-second hold) - 0(No drift) 5b. Right Arm: Motor (10-second hold) - 0(No drift) 6a. Left Leg: Motor (5-second hold - always test supine) - 0(No drift) 6b. Right Leg: Motor (5-second hold - always test supine) - 0(No drift) 7. Limb Ataxia (finger/nose \\T\\ heel/martinez - test with eyes open) - 0(Absent) 8. Sensory Loss (pinprick arms/legs/face) - 0(Normal) 9. Best Language: Aphasia (description/naming/reading) - 0(No aphasia) 10. Dysarthria (speech clarity - read or repeat words) - 0(Normal) 11. Extinction and Inattention (visual/tactile/auditory/spatial/personal) - 0(No abnormality) Initials: abebe Signatures: Dispatcher [employer] Dontae Tenorio MD MD cha Salyer, Monica De Souza, RN RN lp1 Sebastian Negro RN RN jd3
--- NOTE | 2019-05-19 22:51 | EDPHYS ---
Physician Documentation [facility] Name: Britt Bower Age: 44 yrs Sex: Female : 1975 Arrival Date: 05/19/2019 Time: 19:47 Bed 6 Private MD: CHARISSE CORDOBA ED Physician Dontae López HPI: 05/19 21:11 This 44 yrs old Female presents to ER via Ambulatory with complaints of Arm abebe Pain, Numbness. 21:11 The patient or guardian complains of pain. The complaints affect the left bicep, dorsal abebe aspect of left forearm, left tricep and palmar aspect of left forearm. Context: The problem was sustained at an unknown location. Onset: The symptoms/episode began/occurred today. Treatment prior to arrival includes: no previous treatment. Modifying factors: The symptoms are alleviated by nothing. the symptoms are aggravated by nothing. Associated signs and symptoms: The patient has no apparent associated signs or symptoms. Severity of symptoms: At their worst the symptoms were mild, moderate, in the emergency department the symptoms are unchanged. 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 N/A - Hysterectomy jd3 Historical: - Allergies: 19:53 Amoxicillin; jd3 19:53 Aspirin; jd3 19:53 Coconut; jd3 19:53 diazepam; jd3 19:53 Iodine; jd3 19:53 Morphine; jd3 19:53 Ondansetron HCl; jd3 19:53 PENICILLINS; jd3 19:53 Piperacillin Sodium; jd3 19:53 shrimp; jd3 19:53 tazobactam sodium; jd3 19:53 Zofran; jd3 - Home Meds: 19:53 gabapentin 600 mg Oral tab 1 tab 3 times per day for Neuropathic Pain [Active]; Humulin jd3 70/30 100 unit/mL (70-30) Sub-Q tab for Type 2 Diabetes Mellitus [Active]; levetiracetam 500 mg Oral tab 1 tab 2 times per day for Tonic-Clonic Epilepsy Treatment Adjunct [Active]; lisinopril 10 mg Oral tab 1 tab nightly [Active]; lisinopril-hydrochlorothiazide 20-25 mg Oral tab once daily for Hypertension [Active]; - PMHx: 19:53 Asthma; Diabetes - IDDM; epilepsy; history of stroke; Hypertension; neuropathy; jd3 - PSHx: 19:53 ; I\T\D; Cholecystectomy; Hysterectomy; jd3 - Immunization history:: Adult Immunizations up to date, Pneumococcal vaccine is not up to date. - Social history:: Smoking status: Patient/guardian denies using tobacco. - Ebola Screening: : Patient negative for fever greater than or equal to 101.5 degrees Fahrenheit, and additional compatible Ebola Virus Disease symptoms. - Family history:: not pertinent. ROS: 21:11 Constitutional: Negative for fever, chills, and weight loss, Eyes: Negative for injury, abebe pain, redness, and discharge, ENT: Negative for injury, pain, and discharge, Neck: Negative for injury, pain, and swelling, Cardiovascular: Negative for chest pain, palpitations, and edema, Respiratory: Negative for shortness of breath, cough, wheezing, and pleuritic chest pain, Abdomen/GI: Negative for abdominal pain, nausea, vomiting, diarrhea, and constipation, Back: Negative for injury and pain, : Negative for injury, bleeding, discharge, and swelling, MS/Extremity: Negative for injury and deformity, Skin: Negative for injury, rash, and discoloration, Neuro: Negative for headache, weakness, numbness, tingling, and seizure, Psych: Negative for depression, anxiety, suicide ideation, homicidal ideation, and hallucinations, Allergy/Immunology: Negative for hives, rash, and allergies, Endocrine: Negative for neck swelling, polydipsia, polyuria, polyphagia, and marked weight changes, Hematologic/Lymphatic: Negative for swollen nodes, abnormal bleeding, and unusual bruising. Exam: 21:12 Constitutional: This is a well developed, well nourished patient who is awake, alert, abebe and in no acute distress. Head/Face: Normocephalic, atraumatic. Eyes: Pupils equal round and reactive to light, extra-ocular motions intact. Lids and lashes normal. Conjunctiva and sclera are non-icteric and not injected. Cornea within normal limits. Periorbital areas with no swelling, redness, or edema. ENT: Nares patent. No nasal discharge, no septal abnormalities noted. Tympanic membranes are normal and external auditory canals are clear. Oropharynx with no redness, swelling, or masses, exudates, or evidence of obstruction, uvula midline. Mucous membranes moist. Neck: Trachea midline, no thyromegaly or masses palpated, and no cervical lymphadenopathy. Supple, full range of motion without nuchal rigidity, or vertebral point tenderness. No Meningismus. Chest/axilla: Normal chest wall appearance and motion. Nontender with no deformity. No lesions are appreciated. Cardiovascular: Regular rate and rhythm with a normal S1 and S2. No gallops, murmurs, or rubs. Normal PMI, no JVD. No pulse deficits. Respiratory: Lungs have equal breath sounds bilaterally, clear to auscultation and percussion. No rales, rhonchi or wheezes noted. No increased work of breathing, no retractions or nasal flaring. Abdomen/GI: Soft, non-tender, with normal bowel sounds. No distension or tympany. No guarding or rebound. No evidence of tenderness throughout. Back: No spinal tenderness. No costovertebral tenderness. Full range of motion. Skin: Warm, dry with normal turgor. Normal color with no rashes, no lesions, and no evidence of cellulitis. MS/ Extremity: Pulses equal, no cyanosis. Neurovascular intact. Full, normal range of motion. Neuro: Awake and alert, GCS 15, oriented to person, place, time, and situation. Cranial nerves II-XII grossly intact. Motor strength 5/5 in all extremities. Sensory grossly intact. Cerebellar exam normal. Normal gait. Psych: Awake, alert, with orientation to person, place and time. Behavior, mood, and affect are within normal limits. 21:17 Musculoskeletal/extremity: DVT Exam: No signs of deep vein thrombosis. no pain, no abebe swelling, no tenderness, negative Homans' sign noted on exam, no appreciated bluish discoloration, no erythema, no increased warmth. Vital Signs: 19:53 BP 141 / 88; Pulse 74; Resp 18 S; Temp 97.3(TE); Pulse Ox 100% on R/A; Weight 95.25 kg jd3 (R); Height 5 ft. 0 in. (152.40 cm) (R); Pain 10/10; 22:00 BP 120 / 70; Pulse 78; Resp 20; Pulse Ox 100% on R/A; lp1 23:08 BP 123 / 75; Pulse 83; Resp 20; Pulse Ox 99% on R/A; lp1 19:53 Body Mass Index 41.01 (95.25 kg, 152.40 cm) jd3 NIH Stroke Scale Scores: 21:12 NIHSS Score: 0 abebe MDM: 19:54 [facility] 21[facility]18 Data reviewed: vital signs, nurses notes, lab test result(s), EKG, radiologic studies, abebe plain films. 05/19 21:09 Order name: Basic Metabolic Panel; Complete Time: 22:50 [facility] 05/19 21:09 Order name: CBC with Diff; Complete Time: 22:50 [facility] 05/19 21:09 Order name: LFT's; Complete Time: 22:50 [facility] 05/19 21:09 Order name: Magnesium; Complete Time: 22:50 [facility] 05/19 21:09 Order name: NT PRO-BNP; Complete Time: 22:50 [facility] 05/19 21:09 Order name: PT-INR; Complete Time: 22:50 [facility] 05/19 21:09 Order name: Troponin (emerg Dept Use Only); Complete Time: 22:50 [facility] 05/19 21:09 Order name: XRAY Chest (1 view) [facility] 05/19 21:09 Order name: EKG; Complete Time: 21:11 [facility] 05/19 21:09 Order name: Cardiac monitoring; Complete Time: 21:29 [facility] 05/19 21:09 Order name: EKG - Nurse/Tech; Complete Time: 21:49 [facility] 05/19 21:10 Order name: Urine Culture [facility] 05/19 22:08 Order name: Urine Dipstick--Ancillary (enter results); Complete Time: 22:50 [facility] 05/19 22:08 Order name: Urine --Ancillary (enter results); Complete Time: 22:50 [facility] 05/19 21:09 Order name: IV Saline Lock; Complete Time: 21:49 [facility] 05/19 21:09 Order name: Labs collected and sent; Complete Time: 22:17 [facility] 05/19 21:09 Order name: O2 Per Protocol; Complete Time: 21:29 [facility] 05/19 21:09 Order name: O2 Sat Monitoring; Complete Time: 21:29 [facility] 05/19 21:09 Order name: Urine Dipstick-Ancillary (obtain specimen); Complete Time: 22:17 [facility] 05/19 21:10 Order name: Urine Test (obtain specimen); Complete Time: 22:16 [facility] Administered Medications: No medications were administered Disposition: 05/19/19 22:50 Discharged to Home. Impression: Pain in left arm. - Condition is Stable. - Discharge Instructions: Type 1 Diabetes Mellitus, Diagnosis, Adult, Hypertension, Musculoskeletal Pain, Hypertension, Cfrk-dg-Usxi, Aspirin and Your Heart, Managing Your Hypertension, Type 1 Diabetes Mellitus, Self Care, Adult, Type 1 Diabetes Mellitus, Diagnosis, Adult, Axza-om-Trmg, Type 1 Diabetes Mellitus, Self Care, Adult, Dphj-kx-Bidn. - Medication Reconciliation Form, Thank You Letter, Antibiotic Education, Prescription Opioid Use, Work release form form. - Follow up: CHARISSE ADALID; When: 2 - 3 days; Reason: Recheck today's complaints, Continuance of care, Re-evaluation by your physician. - Problem is new. - Symptoms have improved. NIH Stroke Scale - NIH Stroke Score Date: 05/19/2019 Time: 21:12 Total Score = 0 1a. Level of Consciousness (LOC) - 0(Alert) 1b. Level of Consciousness (LOC) (Year \T\ Age) - 0(Both) 1c. LOC Commands (Open \T\ Closes Eyes/Hydropress Operator) - 0(Both) 2. Best Gaze (Lateral Gaze Paresis) - 0(Normal) 3. Visual Field Loss - 0(No visual loss) 4. Facial Palsy - 0(Normal) 5a. Left Arm: Motor (10-second hold) - 0(No drift) 5b. Right Arm: Motor (10-second hold) - 0(No drift) 6a. Left Leg: Motor (5-second hold - always test supine) - 0(No drift) 6b. Right Leg: Motor (5-second hold - always test supine) - 0(No drift) 7. Limb Ataxia (finger/nose \T\ heel/martinez - test with eyes open) - 0(Absent) 8. Sensory Loss (pinprick arms/legs/face) - 0(Normal) 9. Best Language: Aphasia (description/naming/reading) - 0(No aphasia) 10. Dysarthria (speech clarity - read or repeat words) - 0(Normal) 11. Extinction and Inattention (visual/tactile/auditory/spatial/personal) - 0(No abnormality) Initials: abebe Signatures: Dispatcher [employer] EDDontae Munguia MD MD cha Pena, Laura RN RN lp1 Sebastian Negro RN RN jd3 Corrections: (The following items were deleted from the chart) 23:09 22:50 05/19/2019 22:50 Discharged to Home. Impression: Pain in left arm. lp1 Condition is Stable. Discharge Instructions: Musculoskeletal Pain, Aspirin and Your Heart, Type 1 Diabetes Mellitus, Diagnosis, Adult, Type 1 Diabetes Mellitus, Self Care, Adult, Type 1 Diabetes Mellitus, Diagnosis, Adult, Mywq-cc-Enxy, Type 1 Diabetes Mellitus, Self Care, Adult, Cawd-uj-Plgi. Forms are Medication Reconciliation Form, Thank You Letter, Antibiotic Education, Prescription Opioid Use. Follow up: CHARISSE CORDOBA; When: 2 - 3 days; Reason: Recheck today's complaints, Continuance of care, Re-evaluation by your physician. Problem is new. Symptoms have improved. abebe
[2019-05-19 23:14] VITALS: TEMP 97.3
[2019-05-19 23:17] VITALS: BP 123/75; O2SAT 99
--- NOTE | 2019-05-20 07:42 | EKG ---
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
--- NOTE | 2019-05-20 08:01 | RAD REPORT ---
EXAM DESCRIPTION: Mona Single View05/19/2019 9:40 pm CLINICAL HISTORY: Cough COMPARISON: March 2019 FINDINGS: The lungs appear clear of acute infiltrate. The heart is normal size IMPRESSION: No acute abnormalities displayed
== END 2019-05-19 23:09 | disposition home or self-care (01) ==
LOC: ER 19:44
DX: M79.602 Pain in left arm (principal); Z88.1 Allergy status to other antibiotic agents; Z91.09 Other allergy status, other than to drugs and biological substances; Z91.018 Allergy to other foods; Z88.6 Allergy status to analgesic agent; Z88.0 Allergy status to penicillin; Z91.013 Allergy to seafood; Z88.8 Allergy status to other drugs, medicaments and biological substances; Z79.4 Long term (current) use of insulin; I10 Essential (primary) hypertension; G40.909 Epilepsy, unspecified, not intractable, without status epilepticus; E11.40 Type 2 diabetes mellitus with diabetic neuropathy, unspecified
CPT/HCPCS: 36415; 71045; 80048; 80076; 81003; 81025; 83735; 83880; 84484; 85025; 85610; 87086; 87088; 93005; 99283

== ENCOUNTER 2019-06-09 14:46 | Emergency (ER) | payer SELFPAY ==
--- OUTSIDE RECORDS SUMMARY | 2019-06-09 14:48 | XMS REPORT ---
:1975 [facility] Address [address] [place] [address] Care Team Providers Name Role Phone KALEE [...] Reference Range Comments TEST URINE (BEAKER) (test aruy=706) Negative URINALYSIS WITH MICROSCOPIC IF [id number] 14:55:00 Test Item Value Reference Range Comments COLOR (BEAKER) (test aamy=752) Colorless CLARITY (BEAKER) (test zcyp=621) Clear SPECIFIC GRAVITY UA (BEAKER) (test cqpz=800) 1.003 1.001-1.035 PH UA (BEAKER) (test nhwb=837) 5.5 5.0-8.0 PROTEIN UA (BEAKER) (test rewh=048) Negative Negative GLUCOSE UA (BEAKER) (test vsio=569) Negative Negative KETONES UA (BEAKER) (test lbos=632) Negative Negative BILIRUBIN UA (BEAKER) (test bial=765) Negative Negative BLOOD UA (BEAKER) (test volf=699) Negative Negative NITRITE UA (BEAKER) (test jxnj=327) Negative Negative LEUKOCYTE ESTERASE UA (BEAKER) (test khqf=588) Negative Negative UROBILINOGEN UA (BEAKER) (test mszo=120) 0.2 mg/dL 0.2-1.0 SOURCE(BEAKER) (test hhzg=4752) RAD, CHEST, 1 VIEW, NON [id number] 13:46:00Reason for exam:->chest painIs the patient ?->UnknownShould [...] Verified Date/Time : 10/15/2018 13:46:07 Reading Location: [facility] B-TYPE NATRIURETIC FACTOR ( BNP)2018-10-15 13:45:00 Test Item Value Reference Range Comments B-TYPE NATRIURETIC PEPTIDE (BEAKER) (test phvt=606) < pg/mL 0-100 TROPONIN [id number] 13:42:00 Test Item Value Reference Range Comments TROPONIN I (BEAKER) (test hpzq=726) < ng/mL 0.00-0.03 Troponin I (TnI) levels [...] failure, acidosis, acute neurological disease, and persistent tachyarrhythmia.[id number] 13:36:00 Test Item Value Reference Range Comments MAGNESIUM (BEAKER) (test qiqg=340) 1.9 mg/dL 1.6-2.6 COMPREHENSIVE METABOLIC [id number] 13:36:00 Test Item Value Reference Range Comments TOTAL PROTEIN (BEAKER) 7.7 gm/dL 6.0-8.3 (test fcdo=856) ALBUMIN (BEAKER) (test 4.3 g/dL 3.5-5.0 rdyx=5564) ALKALINE PHOSPHATASE 78 U/L 40-150 (BEAKER) (test xsac=038) BILIRUBIN TOTAL (BEAKER) 0.2 mg/dL 0.2-1.2 (test eoyi=669) SODIUM (BEAKER) (test 140 meq/L 136-145 solq=535) POTASSIUM (BEAKER) (test 3.7 meq/L 3.5-5.1 brkd=383) CHLORIDE (BEAKER) (test 105 meq/L 98-107 kdzl=870) CO2 (BEAKER) (test 23 meq/L 22-29 otwk=978) BLOOD UREA NITROGEN 17 mg/dL 7-21 (BEAKER) (test bslt=418) CREATININE (BEAKER) (test 0.78 mg/dL 0.57-1.25 orwo=839) GLUCOSE RANDOM (BEAKER) 94 mg/dL 70-105 (test bsgq=375) CALCIUM (BEAKER) (test 10.3 mg/dL 8.4-10.2 nfcd=892) AST (SGOT) (BEAKER) (test 19 U/L 5-34 cjrw=623) ALT (SGPT) (BEAKER) (test 24 U/L 6-55 zlwr=601) EGFR (BEAKER) (test 80 mL/min/1.73 sq m INSUFFICIENT CLINICAL vzvp=9073) DATA TO CALCULATE ESTIMATED GFR. CBC W/PLT COUNT & AUTO [id number] 13:09:00 Test Item Value Reference Range Comments WHITE BLOOD CELL COUNT (BEAKER) (test zxwx=568) 6.4 K/ L 3.5-10.5 RED BLOOD CELL COUNT (BEAKER) (test bayb=354) 4.76 M/ L 3.93-5.22 HEMOGLOBIN (BEAKER) (test hzls=891) 14.2 GM/DL 11.2-15.7 HEMATOCRIT (BEAKER) (test ntux=083) 42.4 % 34.1-44.9 MEAN CORPUSCULAR VOLUME (BEAKER) (test iihf=713) 89.1 fL 79.4-94.8 MEAN CORPUSCULAR HEMOGLOBIN (BEAKER) (test 29.8 pg 25.6-32.2 szed=399) MEAN CORPUSCULAR HEMOGLOBIN CONC (BEAKER) (test 33.5 GM/DL 32.2-35.5 psie=768) RED CELL DISTRIBUTION WIDTH (BEAKER) (test 12.0 % 11.7-14.4 xfrt=382) PLATELET COUNT (BEAKER) (test anqo=717) 305 K/CU MM 150-450 MEAN PLATELET VOLUME (BEAKER) (test xahm=779) 9.3 fL 9.4-12.3 NUCLEATED RED BLOOD CELLS (BEAKER) (test 0 /100 WBC 0-0 giyo=725) NEUTROPHILS RELATIVE PERCENT (BEAKER) (test 57 % kgkw=709) LYMPHOCYTES RELATIVE PERCENT (BEAKER) (test 33 % pudk=330) MONOCYTES RELATIVE PERCENT (BEAKER) (test 8 % zfmo=866) EOSINOPHILS RELATIVE PERCENT (BEAKER) (test 2 % emgd=359) BASOPHILS RELATIVE PERCENT (BEAKER) (test 1 % tjoe=503) NEUTROPHILS ABSOLUTE COUNT (BEAKER) (test 3.60 K/ L 1.56-6.13 ycws=791) LYMPHOCYTES ABSOLUTE COUNT (BEAKER) (test 2.10 K/ L 1.18-3.74 etdh=916) MONOCYTES ABSOLUTE COUNT (BEAKER) (test 0.48 K/ L 0.24-0.36 ahtt=715) EOSINOPHILS ABSOLUTE COUNT (BEAKER) (test 0.13 K/ L 0.04-0.36 foiw=258) BASOPHILS ABSOLUTE COUNT (BEAKER) (test 0.04 K/ L 0.01-0.08 euze=453) IMMATURE GRANULOCYTES-RELATIVE PERCENT (BEAKER) 0 % 0-1 (test ngxi=0519)
--- OUTSIDE RECORDS SUMMARY | 2019-06-09 14:48 | XMS REPORT ---
:1975 Author Organization [employer] Care Team Providers Name Role Phone Lubna Hunt Provider Role Unavailable Allergies, Adverse Reactions, Alerts Substance Reaction Event Type penicillin anaphylaxis Drug Allergy Zofran anaphylaxis Drug Allergy Iodine anaphylaxis Drug Allergy Diazepam anaphylaxis Drug Allergy Aspirin anaphylaxis Drug Allergy Problems Problem Type Condition Code Onset Dates Condition Status Problem Epilepsy G40.909 Active Problem Diabetes type 2, controlled E11.9 Active Problem Mixed hyperlipidemia E78.2 Active Problem Encounter for disability Z02.71 Active examination Problem Mild intermittent asthma without J45.20 Active complication Problem Muscle weakness (generalized) M62.81 Active Problem Ulcerative colitis K51.90 Active Problem Morbid obesity E66.01 Active Problem Secondary diabetes with peripheral E13.42 Active neuropathy Problem Other specified diabetes mellitus E13.42 Active with diabetic polyneuropathy Assessment Diabetes type 2, controlled E11.9 Active Assessment Essential hypertension I10 Active Assessment Epilepsy G40.909 Active Problem Essential hypertension I10 Active Medications Medication Code Code Instructions Start End Status Dosage System Date Date Gabapentin ND 50138899301 600 MG Orally Jul 26, Active 1 capsule Three times a 2018 day HumuLIN 70/30 ND 78248606084 (70-30) 100 Jul 26, Active 10 units KwikPen UNIT/ML 2015 Subcutaneous bid Lisinopril ND 17847505981 10 MG Orally Sep 09, Active 1 tablet Once a day 2018 Bentyl ND 14460960249 20 MG Orally November 21, Active 1 tablet Four times a day 2018 Flonase ND 35155262197 50 MCG/ACT Jul 26, Active 2 spray in Nasally Once a 2017 each day nostril Albuterol ND 42421954307 (2.5 MG/3ML) December 23, Active 3 ml as Sulfate 0.083% 2019 needed Inhalation every 8 hrs PRN wheezing Keppra ND 35881533107 500 MG Orally Active take two Twice a day -2 tablet(s) by mouth twice a day. Zestoretic [facility] 85289772692 20-25 MG Orally Jul 26, Active 1 tablet Once a day 2015 ProAir HFA [facility] 05432268468 108 (90 Base) Jul 26, Active 2 puffs as MCG/ACT 2017 needed Inhalation every 6 hrs Tramadol HCl [facility] 89337863045 50 MG Orally Active 1 tablet every 6 hrs as needed Results No Known Results Summary Purpose [employer] Submission
--- NOTE | 2019-06-09 18:07 | RAD REPORT ---
EXAM DESCRIPTION: Mona Shea (2 Views)06/09/2019 4:23 pm CLINICAL HISTORY: Cough COMPARISON: April 2019 FINDINGS: The lungs appear clear of acute infiltrate. The heart is normal size IMPRESSION: No acute abnormalities displayed
--- NOTE | 2019-06-09 18:29 | ER ---
Nurse's Notes [facility] Name: Britt Bower Age: 44 yrs Sex: Female : 1975 Arrival Date: 06/09/2019 Time: 14:52 Bed 17 Private MD: Diagnosis: Acute sinusitis Presentation: 06/09 14:55 Presenting complaint: Patient states: Congestion, cough, green mucus for the last four la1 days, pain with cough. Transition of care: patient was not received from another setting of care. Onset of symptoms was June 09, 2019. Risk Assessment: Do you want to hurt yourself or someone else? Patient reports no desire to harm self or others. Initial Sepsis Screen: Does the patient meet any 2 criteria? No. Patient's initial sepsis screen is negative. Does the patient have a suspected source of infection? No. Patient's initial sepsis screen is negative. Care prior to arrival: None. 14:55 Method Of Arrival: Ambulatory la1 14:55 Acuity: DUKE 4 la1 Historical: - Allergies: 14:55 Amoxicillin; la1 14:55 Aspirin; la1 14:55 Coconut; la1 14:55 diazepam; la1 14:55 Iodine; la1 14:55 Morphine; la1 14:55 Ondansetron HCl; la1 14:55 PENICILLINS; la1 14:55 Piperacillin Sodium; la1 14:55 shrimp; la1 14:55 tazobactam sodium; la1 - PMHx: 14:55 Asthma; Diabetes - IDDM; epilepsy; history of stroke; Hypertension; neuropathy; la1 - PSHx: 14:55 Cholecystectomy; Hysterectomy; ; la1 - Immunization history:: Adult Immunizations up to date. - Social history:: Smoking status: Patient/guardian denies using tobacco. - Ebola Screening: : No symptoms or risks identified at this time. Screenin:30 Abuse screen: Denies threats or abuse. Nutritional screening: No deficits noted. aa5 Tuberculosis screening: No symptoms or risk factors identified. Fall Risk None identified. Assessment: 16:30 General: Appears comfortable, Behavior is calm, cooperative. Pain: Complains of pain in aa5 chest only with cough Pain does not radiate. Pain currently is 0 out of 10 on a pain scale. Quality of pain is described as aching. Neuro: Level of Consciousness is awake, alert, obeys commands, Oriented to person, place, time, situation. Cardiovascular: Patient's skin is warm and dry. Respiratory: Reports cough Airway is patent Respiratory effort is even, unlabored, Respiratory pattern is regular, symmetrical, Breath sounds are clear bilaterally. GI: No signs and/or symptoms were reported involving the gastrointestinal system. : No signs and/or symptoms were reported regarding the genitourinary system. EENT: Reports nasal congestion. Derm: Skin is pink, warm \T\ dry. Musculoskeletal: Range of motion: intact in all extremities. 18:00 Reassessment: Patient is alert, oriented x 3, equal unlabored respirations, skin aa5 warm/dry/pink. Vital Signs: 14:53 Pulse 75; Resp 16; Temp 97.2; Pulse Ox 97% ; Weight 98.88 kg; Height 5 ft. 0 in. la1 (152.40 cm); 14:55 BP 132 / 105; la1 18:00 BP 133 / 88; Pulse 66; Resp 18 S; Pulse Ox 98% on R/A; aa5 14:53 Body Mass Index 42.57 (98.88 kg, 152.40 cm) la1 ED Course: 14:52 Patient arrived in ED. as 14:55 Arm band placed on right wrist. la1 14:56 Triage completed. la1 15:42 Ny Johnson FNP-C is PHCP. kb 16:00 Ny Johnson FNP-C is PHCP. kb 16:00 Mono Jordan MD is Attending Physician. kb 16:08 Eloisa Quintana, RN is Primary Nurse. aa5 16:19 Chest Pa And Lat (2 Views) XRAY In Process Unspecified. EDMS 16:30 Patient has correct armband on for positive identification. Placed in gown. Bed in low aa5 position. Call light in reach. Side rails up X 1. 18:49 No provider procedures requiring assistance completed. Patient did not have IV access ss during this emergency room visit. Administered Medications: No medications were administered Outcome: 18:27 Discharge ordered by . kb 18:49 Discharged to home ambulatory, with significant other. ss 18:49 Condition: good 18:49 Discharge instructions given to patient, family, Instructed on discharge instructions, follow up and referral plans. Demonstrated understanding of instructions, follow-up care. 18:49 Patient left the ED. ss Signatures: Dispatcher [employer] EDMS Ny Johnson, YI-C ELECTRONIC ENGRAVER-Omayra Real Audri, RN RN aa5 Cindy Raman RN RN ss Leo Kirby RN RN la1
--- NOTE | 2019-06-09 18:29 | EDPHYS ---
Physician Documentation [facility] Name: Britt Bower Age: 44 yrs Sex: Female : 1975 Arrival Date: 06/09/2019 Time: 14:52 Bed 17 Private MD: ED Physician Mono Jordan HPI: 06/09 18:35 This 44 yrs old Female presents to ER via Ambulatory with complaints of kb Cough, Congestion. 18:35 The patient or guardian reports cough, that is intermittent, described as mild, with no kb sputum. Onset: The symptoms/episode began/occurred 3 day(s) ago. Severity of symptoms: At their worst the symptoms were mild, in the emergency department the symptoms are unchanged. Modifying factors: The symptoms are alleviated by nothing, the symptoms are aggravated by nothing. Associated signs and symptoms: Pertinent positives: fever. The patient has not experienced similar symptoms in the past. The patient has not recently seen a physician. Pt reports sinus congestion, nonproductive cough and subjective fever for 3 days. has not tried any otc medications for symptoms. Historical: - Allergies: 14:55 Amoxicillin; la1 14:55 Aspirin; la1 14:55 Coconut; la1 14:55 diazepam; la1 14:55 Iodine; la1 14:55 Morphine; la1 14:55 Ondansetron HCl; la1 14:55 PENICILLINS; la1 14:55 Piperacillin Sodium; la1 14:55 shrimp; la1 14:55 tazobactam sodium; la1 - PMHx: 14:55 Asthma; Diabetes - IDDM; epilepsy; history of stroke; Hypertension; neuropathy; la1 - PSHx: 14:55 Cholecystectomy; Hysterectomy; ; la1 - Immunization history:: Adult Immunizations up to date. - Social history:: Smoking status: Patient/guardian denies using tobacco. - Ebola Screening: : No symptoms or risks identified at this time. ROS: 18:35 Neck: Negative for injury, pain, and swelling, Cardiovascular: Negative for chest pain, kb palpitations, and edema, Respiratory: Negative for shortness of breath, cough, wheezing, and pleuritic chest pain, Back: Negative for injury and pain, : Negative for injury, bleeding, discharge, and swelling, MS/Extremity: Negative for injury and deformity, Skin: Negative for injury, rash, and discoloration, Neuro: Negative for headache, weakness, numbness, tingling, and seizure. 18:35 Constitutional: Positive for fever, Negative for body aches, chills, fatigue, malaise, poor PO intake, weight loss. 18:35 ENT: Positive for sinus congestion. 18:35 Respiratory: Positive for cough, with no reported sputum, Negative for dyspnea on exertion, hemoptysis, orthopnea, pleurisy, shortness of breath, sputum production, wheezing. Exam: 18:35 Constitutional: This is a well developed, well nourished patient who is awake, alert, kb and in no acute distress. Head/Face: Normocephalic, atraumatic. ENT: Nares patent. No nasal discharge, no septal abnormalities noted. Tympanic membranes are normal and external auditory canals are clear. Oropharynx with no redness, swelling, or masses, exudates, or evidence of obstruction, uvula midline. Mucous membranes moist. Neck: Trachea midline, no thyromegaly or masses palpated, and no cervical lymphadenopathy. Supple, full range of motion without nuchal rigidity, or vertebral point tenderness. No Meningismus. Chest/axilla: Normal chest wall appearance and motion. Nontender with no deformity. No lesions are appreciated. Cardiovascular: Regular rate and rhythm with a normal S1 and S2. No gallops, murmurs, or rubs. Normal PMI, no JVD. No pulse deficits. Respiratory: Lungs have equal breath sounds bilaterally, clear to auscultation and percussion. No rales, rhonchi or wheezes noted. No increased work of breathing, no retractions or nasal flaring. Abdomen/GI: Soft, non-tender, with normal bowel sounds. No distension or tympany. No guarding or rebound. No evidence of tenderness throughout. Back: No spinal tenderness. No costovertebral tenderness. Full range of motion. Skin: Warm, dry with normal turgor. Normal color with no rashes, no lesions, and no evidence of cellulitis. MS/ Extremity: Pulses equal, no cyanosis. Neurovascular intact. Full, normal range of motion. Neuro: Awake and alert, GCS 15, oriented to person, place, time, and situation. Cranial nerves II-XII grossly intact. Motor strength 5/5 in all extremities. Sensory grossly intact. Cerebellar exam normal. Normal gait. Vital Signs: 14:53 Pulse 75; Resp 16; Temp 97.2; Pulse Ox 97% ; Weight 98.88 kg; Height 5 ft. 0 in. la1 (152.40 cm); 14:55 BP 132 / 105; la1 18:00 BP 133 / 88; Pulse 66; Resp 18 S; Pulse Ox 98% on R/A; aa5 14:53 Body Mass Index 42.57 (98.88 kg, 152.40 cm) la1 MDM: 16:00 Patient medically screened. kb 18:40 Data reviewed: vital signs, nurses notes. Data interpreted: Pulse oximetry: on room air kb is 97 %. Interpretation: normal. Counseling: I had a detailed discussion with the patient and/or guardian regarding: the historical points, exam findings, and any diagnostic results supporting the discharge/admit diagnosis, lab results, radiology results, the need for outpatient follow up, a family practitioner, to return to the emergency department if symptoms worsen or persist or if there are any questions or concerns that arise at home. 06/09 17:21 Order name: Flu; Complete Time: 18:27 kb 06/09 15:42 Order name: Chest Pa And Lat (2 Views) XRAY; Complete Time: 18:11 kb Administered Medications: No medications were administered Disposition: 18:49 Co-signature as Attending Physician, Mono Jordan MD. rn Disposition: 06/09/19 18:27 Discharged to Home. Impression: Acute sinusitis. - Condition is Stable. - Discharge Instructions: Sinusitis, Adult, Vaqy-yr-Srku. - Work release form, Medication Reconciliation Form, Thank You Letter, Antibiotic Education, Prescription Opioid Use form. - Follow up: Emergency Department; When: As needed; Reason: Worsening of condition. Follow up: Private Physician; When: 2 - 3 days; Reason: Recheck today's complaints, Continuance of care, Re-evaluation by your physician. Signatures: Dispatcher [employer] EDMS Ny Johnson, YI-C GLASS GRINDER-Ckb Mono Jordan MD MD rn Smirch, Shelby, RN RN ss Attema, Lee, RN RN la1 Corrections: (The following items were deleted from the chart) 18:49 18:27 06/09/2019 18:27 Discharged to Home. Impression: Acute sinusitis. Condition is ss Stable. Forms are Medication Reconciliation Form, Thank You Letter, Antibiotic Education, Prescription Opioid Use. Follow up: Emergency Department; When: As needed; Reason: Worsening of condition. Follow up: Private Physician; When: 2 - 3 days; Reason: Recheck today's complaints, Continuance of care, Re-evaluation by your physician. kb
[2019-06-09 20:15] VITALS: TEMP 97.2; O2SAT 97
[2019-06-09 20:16] VITALS: BP 132/105
== END 2019-06-09 18:49 | disposition home or self-care (01) ==
LOC: ER 14:46
DX: J01.90 Acute sinusitis, unspecified (principal); I10 Essential (primary) hypertension; Z88.0 Allergy status to penicillin; Z88.1 Allergy status to other antibiotic agents; Z88.5 Allergy status to narcotic agent; Z88.6 Allergy status to analgesic agent; Z91.013 Allergy to seafood; Z91.018 Allergy to other foods; Z91.048 Other nonmedicinal substance allergy status
CPT/HCPCS: 71046; 87804; 99283

== ENCOUNTER 2019-09-14 20:15 | Emergency (ER) | payer SELFPAY ==
--- OUTSIDE RECORDS SUMMARY | 2019-09-14 20:18 | XMS REPORT ---
:1975 Author [facility] Address [address] [place] [address] Care Team Providers Name Role Phone KALEE [...] Reference Range Comments TEST URINE (BEAKER) (test nont=277) Negative URINALYSIS WITH MICROSCOPIC IF [id number] 14:55:00 Test Item Value Reference Range Comments COLOR (BEAKER) (test kkpr=982) Colorless CLARITY (BEAKER) (test loni=982) Clear SPECIFIC GRAVITY UA (BEAKER) (test acmb=876) 1.003 1.001-1.035 PH UA (BEAKER) (test pxom=380) 5.5 5.0-8.0 PROTEIN UA (BEAKER) (test ktdo=659) Negative Negative GLUCOSE UA (BEAKER) (test uadt=639) Negative Negative KETONES UA (BEAKER) (test vmpd=883) Negative Negative BILIRUBIN UA (BEAKER) (test jlhn=905) Negative Negative BLOOD UA (BEAKER) (test hurh=235) Negative Negative NITRITE UA (BEAKER) (test junf=651) Negative Negative LEUKOCYTE ESTERASE UA (BEAKER) (test rvha=361) Negative Negative UROBILINOGEN UA (BEAKER) (test ehah=009) 0.2 mg/dL 0.2-1.0 SOURCE(BEAKER) (test yvyu=1106) RAD, CHEST, 1 VIEW, NON [id number] 13:46:00Reason for exam:->chest painIs the patient ?->UnknownShould [...] Verified Date/Time : 10/15/2018 13:46:07 Reading Location: [facility] B-TYPE NATRIURETIC FACTOR ( BNP)2018-10-15 13:45:00 Test Item Value Reference Range Comments B-TYPE NATRIURETIC PEPTIDE (BEAKER) (test ufkc=933) < pg/mL 0-100 TROPONIN [id number] 13:42:00 Test Item Value Reference Range Comments TROPONIN I (BEAKER) (test dycb=613) < ng/mL 0.00-0.03 Troponin I (TnI) levels [...] failure, acidosis, acute neurological disease, and persistent tachyarrhythmia.[id number] 13:36:00 Test Item Value Reference Range Comments MAGNESIUM (BEAKER) (test trbv=288) 1.9 mg/dL 1.6-2.6 COMPREHENSIVE METABOLIC [id number] 13:36:00 Test Item Value Reference Range Comments TOTAL PROTEIN (BEAKER) 7.7 gm/dL 6.0-8.3 (test hava=131) ALBUMIN (BEAKER) (test 4.3 g/dL 3.5-5.0 cfqj=5958) ALKALINE PHOSPHATASE 78 U/L 40-150 (BEAKER) (test koal=457) BILIRUBIN TOTAL (BEAKER) 0.2 mg/dL 0.2-1.2 (test emac=847) SODIUM (BEAKER) (test 140 meq/L 136-145 ichi=298) POTASSIUM (BEAKER) (test 3.7 meq/L 3.5-5.1 qsbx=658) CHLORIDE (BEAKER) (test 105 meq/L 98-107 jeho=482) CO2 (BEAKER) (test 23 meq/L 22-29 qasp=136) BLOOD UREA NITROGEN 17 mg/dL 7-21 (BEAKER) (test efwq=079) CREATININE (BEAKER) (test 0.78 mg/dL 0.57-1.25 jdxg=575) GLUCOSE RANDOM (BEAKER) 94 mg/dL 70-105 (test qeki=134) CALCIUM (BEAKER) (test 10.3 mg/dL 8.4-10.2 steh=108) AST (SGOT) (BEAKER) (test 19 U/L 5-34 lljo=777) ALT (SGPT) (BEAKER) (test 24 U/L 6-55 nagz=662) EGFR (BEAKER) (test 80 mL/min/1.73 sq m INSUFFICIENT CLINICAL fycr=0034) DATA TO CALCULATE ESTIMATED GFR. CBC W/PLT COUNT & AUTO [id number] 13:09:00 Test Item Value Reference Range Comments WHITE BLOOD CELL COUNT (BEAKER) (test vcsx=738) 6.4 K/ L 3.5-10.5 RED BLOOD CELL COUNT (BEAKER) (test ljkm=301) 4.76 M/ L 3.93-5.22 HEMOGLOBIN (BEAKER) (test rzez=325) 14.2 GM/DL 11.2-15.7 HEMATOCRIT (BEAKER) (test rzux=951) 42.4 % 34.1-44.9 MEAN CORPUSCULAR VOLUME (BEAKER) (test ubop=198) 89.1 fL 79.4-94.8 MEAN CORPUSCULAR HEMOGLOBIN (BEAKER) (test 29.8 pg 25.6-32.2 yglu=722) MEAN CORPUSCULAR HEMOGLOBIN CONC (BEAKER) (test 33.5 GM/DL 32.2-35.5 bjdq=534) RED CELL DISTRIBUTION WIDTH (BEAKER) (test 12.0 % 11.7-14.4 fwdu=214) PLATELET COUNT (BEAKER) (test yfnf=089) 305 K/CU MM 150-450 MEAN PLATELET VOLUME (BEAKER) (test jnuh=627) 9.3 fL 9.4-12.3 NUCLEATED RED BLOOD CELLS (BEAKER) (test 0 /100 WBC 0-0 kzll=467) NEUTROPHILS RELATIVE PERCENT (BEAKER) (test 57 % sllh=705) LYMPHOCYTES RELATIVE PERCENT (BEAKER) (test 33 % tpme=080) MONOCYTES RELATIVE PERCENT (BEAKER) (test 8 % mzzt=625) EOSINOPHILS RELATIVE PERCENT (BEAKER) (test 2 % npmk=620) BASOPHILS RELATIVE PERCENT (BEAKER) (test 1 % tloe=337) NEUTROPHILS ABSOLUTE COUNT (BEAKER) (test 3.60 K/ L 1.56-6.13 mkyn=682) LYMPHOCYTES ABSOLUTE COUNT (BEAKER) (test 2.10 K/ L 1.18-3.74 whpv=535) MONOCYTES ABSOLUTE COUNT (BEAKER) (test 0.48 K/ L 0.24-0.36 dfkc=355) EOSINOPHILS ABSOLUTE COUNT (BEAKER) (test 0.13 K/ L 0.04-0.36 cncu=361) BASOPHILS ABSOLUTE COUNT (BEAKER) (test 0.04 K/ L 0.01-0.08 yqut=443) IMMATURE GRANULOCYTES-RELATIVE PERCENT (BEAKER) 0 % 0-1 (test jdez=4144)
--- OUTSIDE RECORDS SUMMARY | 2019-09-14 20:18 | XMS REPORT ---
[...] Status Dosage System Date Date Gabapentin ND 65706652561 600 MG Orally Jul 26, Active 1 capsule Three times a 2018 day HumuLIN 70/30 ND 05143689245 (70-30) 100 Jul 26, Active 10 units KwikPen UNIT/ML 2015 Subcutaneous bid Lisinopril ND 56504112966 10 MG Orally Sep 09, Active 1 tablet Once a day 2018 Bentyl ND 82066657673 20 MG Orally November 21, Active 1 tablet Four times a day 2018 Flonase ND 29302740347 50 MCG/ACT Jul 26, Active 2 spray in Nasally Once a 2017 each day nostril Albuterol ND 44517164128 (2.5 MG/3ML) December 23, Active 3 ml as Sulfate 0.083% 2019 needed Inhalation every 8 hrs PRN wheezing Keppra ND 64773626968 500 MG Orally Active take two Twice a day -2 tablet(s) by mouth twice a day. Zestoretic [facility] 29686798098 20-25 MG Orally Jul 26, Active 1 tablet Once a day 2015 ProAir HFA [facility] 85323555218 108 (90 Base) Jul 26, Active 2 puffs as MCG/ACT 2017 needed Inhalation every 6 hrs Tramadol HCl [facility] 13330935139 50 MG Orally Active 1 tablet every 6 hrs as needed Results No Known Results Summary Purpose eClinicalWorks Submission
--- OUTSIDE RECORDS SUMMARY | 2019-09-14 20:18 | XMS REPORT ---
:1975 Author Organization [employer] Care Team Providers Name Role Phone Lubna Hunt Provider Role Unavailable Allergies No Known Allergies Problems Problem Type Condition Code Onset Dates Condition Status Problem Epilepsy G40.909 Active Problem Diabetes type 2, controlled E11.9 Active Problem Mixed hyperlipidemia E78.2 Active Problem Essential hypertension I10 Active Problem Encounter for disability Z02.71 Active examination Problem Mild intermittent asthma without J45.20 Active complication Problem Muscle weakness (generalized) M62.81 Active Problem Ulcerative colitis K51.90 Active Problem Morbid obesity E66.01 Active Problem Secondary diabetes with peripheral E13.42 Active neuropathy Problem Other specified diabetes mellitus E13.42 Active with diabetic polyneuropathy Medications No Known Medications Results No Known Results Summary Purpose eClinicalWorks Submission
--- OUTSIDE RECORDS SUMMARY | 2019-09-14 20:19 | XMS REPORT | Summary of Care ---
:1975 Author Organization [facility] Address [address] [place] [address] Care Team Providers Name Role Phone Lubna Hunt Primary Care Provider Reason for Visit Reason Comments Chest wall pain Neck Pain Auth/Cert Status Reason Specialty Diagnoses / Referred By Referred To Procedures Contact Contact [facility] [address] [place] [address] [place] [address] Encounter Details Date Type Department Care Team Description 08/13/2019 Emergency [facility]-Emergency Ramya Back PAC Nonintractable headache, unspecified chronicity pattern, unspecified headache type (Primary Dx); Department [address] [place] [address] Abrasion of chest wall, unspecified laterality, initial encounter; [address] [place] [address] [place] [address] [place] [address] [phone] Allergies Active Allergy Reactions Severity Noted Date Comments Aspirin Anaphylaxis, Rash 12/03/2006 Iodine Anaphylaxis 11/22/2016 Morphine Palpitations, Shortness of Breath 03/22/2017 Penicillin Hives, Shortness of Breath, Other - 04/06/2015 See comments Diazepam Rash 12/03/2006 Ondansetron Hcl (Pf) Hives, Other - See comments 04/06/2015 documented as of this encounter (statuses as of 08/13/2019) Medications Medication Sig Dispensed Refills Start Date End Date Status GABAPENTIN ORAL Take by 0 Active mouth. LISINOPRIL ORAL Take by 0 Active mouth. HYDROCHLOROTHIAZIDE ORAL Take by 0 Active mouth. LEVETIRACETAM (KEPPRA Take by 0 Active ORAL) mouth. INSULIN NPH HUM/REG inject 10 0 Active INSULIN HM (INSULIN 70/30 Units under SC) the skin 2 (two) times daily. promethazine-codeine Take 5 mL by 60 mL 0 06/09/2019 Active 6.25-10 mg/5 mL mouth 4 (four) syrupIndications: Acute times daily as maxillary sinusitis, needed for recurrence not specified Cough. sod lqian-pxeskz-zprhhb Use 1 Bottle 1 Each 0 06/09/2019 Active bottle (NEILMED SINUS in each RINSE COMPLETE) nostril 2 pkdvIndications: Acute (two) times maxillary sinusitis, daily. Use in recurrence not specified hot shower 1 hour before bedtime documented as of this encounter (statuses as of 08/13/2019) Active Problems No known active problemsdocumented as of this encounter (statuses as of 2019) Immunizations Name Administration Dates Next Due Td 03/22/2017 documented as of this encounter Social History Tobacco Use Types Packs/Day Years Used Date Never Assessed Sex Assigned at Date Recorded Not on file Job Start Date Occupation Industry Not on file Not on file Not on file Travel History Travel Start Travel End No recent travel history available. documented as of this encounter Last Filed Vital Signs Vital Sign Reading Time Taken Comments Blood Pressure 125/82 08/13/2019 11:58 AM [employer] Pulse 84 08/13/2019 11:58 AM [employer] Temperature 36.8 C (98.2 F) 08/13/2019 11:58 AM [employer] Respiratory Rate 19 08/13/2019 11:58 AM [employer] Oxygen Saturation 96% 08/13/2019 11:58 AM [employer] Inhaled Oxygen Concentration - - Weight 98.4 kg (217 lb) 08/13/2019 11:58 AM [employer] Height 152.4 cm (5') 08/13/2019 11:58 AM [employer] Body Mass Index 42.38 08/13/2019 11:58 AM [employer] documented in this encounter Discharge Instructions InstructionsRamya Back PAC - 08/13/2019Continue taking Keppra as prescribed. Follow up with your PCP and neurologist for re-evaluation as soon as possible. Return to the ER if you start having breakthrough seizures or if you start having severe headache that is not better with ibuprofen or Tylenol. Take ibuprofen 200mg 2 tablets every 6 hours as needed for pain or Tylenol 500mg 2 tablets every 6 hours as needed for pain. AttachmentsThe following attachments cannot be sent through Care Everywhere.Headaches, Self-Care for ([place])Abrasions ([place])documented in this encounter Plan of Treatment Health Maintenance Due Date Last Done Comments PAP SMEAR 10/08/2013 10/08/2010 Breast Cancer Screening 2014 (MAMMOGRAM) DTaP,Tdap,and Td Vaccines (1 - 03/23/2017 03/22/2017 Tdap) INFLUENZA VACCINE (#1) 2019 PNEUMOCOCCAL 0-64 YEARS COMBINED Aged Out No longer eligible based on SERIES patient's age to complete this topic documented as of this encounter Procedures Procedure Name Priority Date/Time Associated Diagnosis Comments NOTICE OF PRIVACY Routine 08/13/2019 11:46 AM [employer] documented in this encounter Results Not on filedocumented in this encounter Visit Diagnoses Diagnosis Nonintractable headache, unspecified chronicity pattern, unspecified headache type - Primary Abrasion of chest wall, unspecified laterality, initial encounter Seizure disorder Unspecified epilepsy without mention of intractable epilepsy documented in this encounter
--- OUTSIDE RECORDS SUMMARY | 2019-09-14 20:19 | XMS REPORT ---
[...] mellitus E13.42 Active with diabetic polyneuropathy Assessment Secondary diabetes with peripheral E13.42 Active neuropathy Assessment Diabetes type 2, controlled E11.9 Active Assessment Epilepsy G40.909 Active Problem Essential hypertension I10 Active Medications Medication Code Code Instructions Start End Status Dosage System Date Date Gabapentin ND 34684439382 600 MG Orally Active 1 capsule Three times a day Bentyl ND 63548337493 20 MG Orally November 21, Active 1 tablet Four times a day 2018 HumuLIN 70/30 [facility] 14700998108 (70-30) 100 Jul 26, Active 10 units KwikPen UNIT/ML 2016 Subcutaneous bid Tramadol HCl ND 42629772838 50 MG Orally Active 1 tablet every 6 hrs as needed Albuterol ND 38685895929 (2.5 MG/3ML) December 23, Active 3 ml as Sulfate 0.083% 2018 needed Inhalation every 8 hrs PRN wheezing Keppra [facility] 81972640976 500 MG Orally Active take two Twice a day -2 tablet(s) by mouth twice a day. Lisinopril ND 94744148929 10 MG Orally Sep 09, Active 1 tablet Once a day 2018 ProAir HFA [facility] 97273350684 108 (90 Base) Jul 26, Active 2 puffs as MCG/ACT 2018 needed Inhalation every 6 hrs Flonase [facility] 90154637086 50 MCG/ACT Jul 26, Active 2 spray in Nasally Once a 2018 each day nostril Zestoretic [facility] 36609670426 20-25 MG Orally Jul 26, Active 1 tablet Once a day 2016 Results No Known Results Summary Purpose eClinicalWorks Submission
--- OUTSIDE RECORDS SUMMARY | 2019-09-14 20:19 | XMS REPORT | Summary of Care ---
:1975 Author Organization [facility] - Health Address [address] [place] [address] Care Team Providers Name Role Phone Lubna Hunt Primary Care Provider Encounter Details Date Type Department Care Team Description 08/13/2019 Orders Only [facility] Doctor Unassigned, No [address] [facility] Name [place] [id number] [address] [place] [id number] Allergies Active Allergy Reactions Severity Noted Date [...] needed for recurrence not specified Cough. 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
[2019-09-14] MEDS ORDERED: NA CHLORIDE 0.9% 500 ML ONE (21:25)
[2019-09-14 21:43] LABS: Absolute Lymphocytes (CBC) 2.2 K/uL (0.7-4.9); Basophils % 0.8 % (0-1.3); Lymphocytes % 34.7 % (15.3-44.8); RBC Red Blood Cell Count 4.21 M/uL (3.86-4.86)
[2019-09-14 22:02] LABS: BUN Blood Urea Nitrogen 13 mg/dL (7-18); Bicarbonate 29 mmol/L (21-32); Glucose Level 100 mg/dL (74-106); Sodium Level 143 mmol/L (136-145)
[2019-09-14 22:15] LABS: Potassium 3.7 mmol/L (3.5-5.1)
--- NOTE | 2019-09-14 22:52 | ER ---
Nurse's Notes [facility] Name: Britt Bower Age: 44 yrs Sex: Female : 1975 Arrival Date: 09/14/2019 Time: 20:18 Bed 14 Private MD: Diagnosis: Diabetes mellitus due to underlying condition with diabetic neuropathy, unspecified;Nausea Presentation: 09/14 20:28 Presenting complaint: Patient states: Reports yesterday she started having nausea and ea vomiting. Pt reports her neuropathy started bothering in both lower extremities today. Transition of care: patient was not received from another setting of care. Onset of symptoms was September 14, 2019. Risk Assessment: Do you want to hurt yourself or someone else? Patient reports no desire to harm self or others. Initial Sepsis Screen: Does the patient meet any 2 criteria? No. Patient's initial sepsis screen is negative. Does the patient have a suspected source of infection? No. Patient's initial sepsis screen is negative. Care prior to arrival: None. 20:28 Method Of Arrival: Ambulatory ea 20:28 Acuity: [facility] 3 ea Triage Assessment: 20:32 General: Appears uncomfortable, Behavior is appropriate for age. Pain: Complains of ea pain in right leg and left leg. GI: Reports nausea, vomiting, Reports she vomited off and on throughout the day. 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 - Hysterectomy ea Historical: - Allergies: 20:31 Zofran; ea 20:31 Iodine; ea 20:31 Amoxicillin; ea 20:31 Aspirin; ea 20:31 Coconut; ea 20:31 diazepam; ea 20:31 Morphine; ea 20:31 Ondansetron HCl; ea 20:31 PENICILLINS; ea 20:31 Piperacillin Sodium; ea 20:31 shrimp; ea 20:31 tazobactam sodium; ea - Home Meds: 20:31 gabapentin 600 mg Oral tab 1 tab 3 times per day for Neuropathic Pain [Active]; Humulin ea 70/30 100 unit/mL (70-30) Sub-Q tab for Type 2 Diabetes Mellitus [Active]; lisinopril-hydrochlorothiazide 20-25 mg Oral tab once daily for Hypertension [Active]; lisinopril 10 mg Oral tab 1 tab nightly [Active]; levetiracetam 500 mg Oral tab 1 tab 2 times per day for Tonic-Clonic Epilepsy Treatment Adjunct [Active]; - PMHx: 20:31 neuropathy; Hypertension; history of stroke; epilepsy; Diabetes - IDDM; Asthma; ea - PSHx: 20:31 ; Hysterectomy; Cholecystectomy; ea - Immunization history:: Adult Immunizations up to date. - Coronavirus screen:: The patient has NOT traveled to [place] in the past 14 days. - Social history:: Smoking status: Smoking status: Patient denies any tobacco usage or history of. - Ebola Screening: : No symptoms or risks identified at this time. Screenin:29 Abuse screen: Denies threats or abuse. Nutritional screening: No deficits noted. ea Tuberculosis screening: No symptoms or risk factors identified. Fall Risk None identified. Assessment: 22:04 General: Appears in no apparent distress. unkempt, Behavior is calm, cooperative. Pain: ls4 Denies pain. Neuro: No deficits noted. Cardiovascular: No deficits noted. Respiratory: No deficits noted. GI: Abdomen is obese, Bowel sounds present X 4 quads. Abd is soft and non tender X 4 quads. Reports nausea, tolerance of fluids, tolerance of food. 23:10 Reassessment: Patient appears in no apparent distress at this time. Patient and/or ls4 family updated on plan of care and expected duration. Pain level reassessed. Patient is alert, oriented x 3, equal unlabored respirations, skin warm/dry/pink. Patient states symptoms have improved. Vital Signs: 20:32 BP 154 / 106; Pulse 66; Resp 18; Temp 96.9; Pulse Ox 99% ; Weight 98.43 kg; Height 5 ea ft. (152.40 cm); Pain 8/10; 22:01 BP 138 / 74; Pulse 68; Resp 14; Pulse Ox 99% on R/A; Pain 0/10; ls4 23:08 BP 112 / 66; Pulse 68; Resp 16; Temp 97.0; Pulse Ox 99% on R/A; Pain 0/10; ls4 20:32 Body Mass Index 42.38 (98.43 kg, 152.40 cm) ea ED Course: 20:18 Patient arrived in ED. ag3 20:29 Triage completed. ea 20:32 Arm band placed on right wrist. ea 20:36 Leo Kirby FNP-C is PHCP. la1 20:36 Mono Jordan MD is Attending Physician. la1 20:56 La Harvey, RN is Primary Nurse. ls4 20:56 No provider procedures requiring assistance completed. ls4 21:26 Inserted saline lock: 20 gauge in right antecubital area, using aseptic technique. ls4 Blood collected. 21:26 Initial lab(s) drawn, by me, sent to lab. Flu and/or RSV swab sent to lab. Patient ls4 maintains SpO2 saturation greater than 95% on room air. 22:05 Patient has correct armband on for positive identification. Bed in low position. Call ls4 light in reach. Side rails up X 1. Pulse ox on. NIBP on. Warm blanket given. 23:16 IV discontinued, bleeding controlled, No redness/swelling at site. Pressure dressing ls4 applied. Administered Medications: 21:23 Drug: NS 0.9% 500 ml Route: IV; Rate: bolus; Site: right hand; ls4 Outcome: 22:51 Discharge ordered by MD. la1 23:10 Discharged to home ambulatory. ls4 23:10 Condition: good 23:10 Discharge instructions given to patient, family, Instructed on discharge instructions, follow up and referral plans. medication usage, Demonstrated understanding of instructions, follow-up care, medications, Prescriptions given X 1. 23:17 Patient left the ED. ls4 Signatures: Leo Kirby, YI-Jose ALVAREZP-Cla1 Itzel Rivas, RN RN Bailey Rodriguez Lisa, RN RN ls4
--- NOTE | 2019-09-14 22:52 | EDPHYS ---
Physician Documentation [facility] Name: Britt Bower Age: 44 yrs Sex: Female : 1975 Arrival Date: 09/14/2019 Time: 20:18 Bed 14 Private MD: ED Physician Mono Jordan HPI: 09/14 22:22 This 44 yrs old Female presents to ER via Ambulatory with complaints of Leg la1 Pain, Vomiting. 22:22 The patient presents with pain, that is chronic. The complaints affect the left leg and la1 right leg. Context: The problem was sustained at home, the patient can fully bear weight, the patient is able to ambulate. Modifying factors: The symptoms are alleviated by elevating leg, the symptoms are aggravated by nothing. Associated signs and symptoms: Pertinent positives: tingling, Pertinent negatives calf tenderness, fever, numbness, rash. Treatment prior to arrival includes: over the counter medications, Tylenol. Severity of symptoms: At their worst the symptoms were mild. The patient has experienced similar episodes in the past. 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 ea Historical: - Allergies: 20:31 Zofran; ea 20:31 Iodine; ea 20:31 Amoxicillin; ea 20:31 Aspirin; ea 20:31 Coconut; ea 20:31 diazepam; ea 20:31 Morphine; ea 20:31 Ondansetron HCl; ea 20:31 PENICILLINS; ea 20:31 Piperacillin Sodium; ea 20:31 shrimp; ea 20:31 tazobactam sodium; ea - Home Meds: 20:31 gabapentin 600 mg Oral tab 1 tab 3 times per day for Neuropathic Pain [Active]; Humulin ea 70/30 100 unit/mL (70-30) Sub-Q tab for Type 2 Diabetes Mellitus [Active]; lisinopril-hydrochlorothiazide 20-25 mg Oral tab once daily for Hypertension [Active]; lisinopril 10 mg Oral tab 1 tab nightly [Active]; levetiracetam 500 mg Oral tab 1 tab 2 times per day for Tonic-Clonic Epilepsy Treatment Adjunct [Active]; - PMHx: 20:31 neuropathy; Hypertension; history of stroke; epilepsy; Diabetes - IDDM; Asthma; ea - PSHx: 20:31 ; Hysterectomy; Cholecystectomy; ea - Immunization history:: Adult Immunizations up to date. - Coronavirus screen:: The patient has NOT traveled to [place] in the past 14 days. - Social history:: Smoking status: Smoking status: Patient denies any tobacco usage or history of. - Ebola Screening: : No symptoms or risks identified at this time. ROS: 22:24 Constitutional: Negative for fever, chills, and weight loss, Eyes: Negative for injury, la1 pain, redness, and discharge, ENT: Negative for injury, pain, and discharge, Neck: Negative for injury, pain, and swelling, Cardiovascular: Negative for chest pain, palpitations, and edema, Respiratory: Negative for shortness of breath, cough, wheezing, and pleuritic chest pain, Abdomen/GI: Negative for abdominal pain, nausea, vomiting, diarrhea, and constipation, Back: Negative for injury and pain. 22:24 Skin: Negative for injury, rash, and discoloration. 22:24 MS/extremity: Positive for tingling, pins and needles sensation ELIANA LE, pain in ELIANA anterior ankle areas. Exam: 22:47 Constitutional: This is a well developed, well nourished patient who is awake, alert, la1 and in no acute distress. Head/Face: Normocephalic, atraumatic. Eyes: Pupils equal round and reactive to light, extra-ocular motions intact. Lids and lashes normal. Conjunctiva and sclera are non-icteric and not injected. Cornea within normal limits. Periorbital areas with no swelling, redness, or edema. Neck: Trachea midline, Chest/axilla: Normal chest wall appearance and motion. Nontender with no deformity. No lesions are appreciated. Cardiovascular: Regular rate and rhythm with a normal S1 and S2. No gallops, murmurs, or rubs. Normal PMI, no JVD. No pulse deficits. Respiratory: Lungs have equal breath sounds bilaterally, clear to auscultation Abdomen/GI: Soft, non-tender, with normal bowel sounds. Back: No spinal tenderness. No costovertebral tenderness. Full range of motion. MS/ Extremity: Pulses equal, no cyanosis. Neurovascular intact. Full, normal range of motion. Vital Signs: 20:32 BP 154 / 106; Pulse 66; Resp 18; Temp 96.9; Pulse Ox 99% ; Weight 98.43 kg; Height 5 ea ft. (152.40 cm); Pain 8/10; 22:01 BP 138 / 74; Pulse 68; Resp 14; Pulse Ox 99% on R/A; Pain 0/10; ls4 23:08 BP 112 / 66; Pulse 68; Resp 16; Temp 97.0; Pulse Ox 99% on R/A; Pain 0/10; ls4 20:32 Body Mass Index 42.38 (98.43 kg, 152.40 cm) ea MDM: 20:36 Patient medically screened. la1 22:50 Data reviewed: vital signs, nurses notes, lab test result(s), I have discussed the la1 patient's presentation/case with the attending Emergency Department Physician; and as a result, I will discharge patient. Data interpreted: Pulse oximetry: on room air is 100 %. Interpretation: normal. Counseling: I had a detailed discussion with the patient and/or guardian regarding: the historical points, exam findings, and any diagnostic results supporting the discharge/admit diagnosis, lab results, the need for outpatient follow up, a family practitioner, to return to the emergency department if symptoms worsen or persist or if there are any questions or concerns that arise at home. 09/14 20:49 Order name: CBC with Diff; Complete Time: 22:22 [facility] 09/14 20:49 Order name: BMP; Complete Time: 22: [facility] 09/14 20:49 Order name: IV; Complete Time: 21:23 la09/14 20:49 Order name: Flu la Administered Medications: 21:23 Drug: NS 0.9% 500 ml Route: IV; Rate: bolus; Site: right hand; ls4 Disposition: 09/15 01:08 Co-signature as Attending Physician, Mono Jordan MD. rn Disposition: 09/14/19 22:51 Discharged to Home. Impression: Diabetes mellitus due to underlying condition with diabetic neuropathy, unspecified, Nausea. - Condition is Stable. - Discharge Instructions: Nausea and Vomiting, Adult, Peripheral Neuropathy. - Prescriptions for promethazine 25 mg Oral Tablet - take 1 tablet by ORAL route every 6 hours As needed; 20 tablet. - Work release form, Medication Reconciliation Form, Thank You Letter form. - Follow up: Private Physician; When: 2 - 3 days; Reason: Recheck today's complaints, Re-evaluation by your physician. Signatures: Dispatcher [employer] EDMS Mono Jordan MD MD rn Attema, Lee, NEONATAL ICU COORDINATOR-C NEONATAL ICU COORDINATOR-Cla1 Itzel Rivas, RN RN La Parks RN RN ls4 Corrections: (The following items were deleted from the chart) 09/14 23:17 22:51 09/14/2019 22:51 Discharged to Home. Impression: Diabetes mellitus due to ls4 underlying condition with diabetic neuropathy, unspecified; Nausea. Condition is Stable. Forms are Medication Reconciliation Form, Thank You Letter, Antibiotic Education, Prescription Opioid Use. Follow up: Private Physician; When: 2 - 3 days; Reason: Recheck today's complaints, Re-evaluation by your physician. la1
[2019-09-14 23:42] VITALS: O2SAT 99
[2019-09-14 23:46] VITALS: BP 112/66; TEMP 97
== END 2019-09-14 23:17 | disposition home or self-care (01) ==
LOC: ER 20:15
DX: R20.2 Paresthesia of skin (principal); E08.40 Diabetes mellitus due to underlying condition with diabetic neuropathy, unspecified; I10 Essential (primary) hypertension; G40.909 Epilepsy, unspecified, not intractable, without status epilepticus; Z79.4 Long term (current) use of insulin; Z88.0 Allergy status to penicillin; Z88.1 Allergy status to other antibiotic agents; Z88.5 Allergy status to narcotic agent; Z88.6 Allergy status to analgesic agent; Z88.8 Allergy status to other drugs, medicaments and biological substances; Z91.013 Allergy to seafood; Z91.018 Allergy to other foods; Z91.048 Other nonmedicinal substance allergy status
CPT/HCPCS: 36415; 80048; 85025; 87804; 99284; J7040

== ENCOUNTER 2019-09-16 22:24 | Emergency (ER) | payer SELFPAY ==
--- OUTSIDE RECORDS SUMMARY | 2019-09-16 22:42 | XMS REPORT ---
[...] Status Dosage System Date Date Gabapentin ND 32047037143 600 MG Orally Jul 26, Active 1 capsule Three times a 2018 day HumuLIN 70/30 ND 82653321152 (70-30) 100 Jul 26, Active 10 units KwikPen UNIT/ML 2015 Subcutaneous bid Lisinopril ND 10481405601 10 MG Orally Sep 09, Active 1 tablet Once a day 2018 Bentyl ND 36872704352 20 MG Orally November 21, Active 1 tablet Four times a day 2018 Flonase ND 99549820028 50 MCG/ACT Jul 26, Active 2 spray in Nasally Once a 2017 each day nostril Albuterol ND 72143262318 (2.5 MG/3ML) December 23, Active 3 ml as Sulfate 0.083% 2019 needed Inhalation every 8 hrs PRN wheezing Keppra ND 70558453182 500 MG Orally Active take two Twice a day -2 tablet(s) by mouth twice a day. Zestoretic [facility] 94524847970 20-25 MG Orally Jul 26, Active 1 tablet Once a day 2015 ProAir HFA [facility] 23015331643 108 (90 Base) Jul 26, Active 2 puffs as MCG/ACT 2017 needed Inhalation every 6 hrs Tramadol HCl [facility] 24032737753 50 MG Orally Active 1 tablet every 6 hrs as needed Results No Known Results Summary Purpose eClinicalWorks Submission
--- OUTSIDE RECORDS SUMMARY | 2019-09-16 22:42 | XMS REPORT ---
:1975 [facility] Address [address] [place] [address] Care Team Providers Name Role Phone KALEE [...] Reference Range Comments TEST URINE (BEAKER) (test hiha=943) Negative URINALYSIS WITH MICROSCOPIC IF [id number] 14:55:00 Test Item Value Reference Range Comments COLOR (BEAKER) (test bdnd=475) Colorless CLARITY (BEAKER) (test hssx=760) Clear SPECIFIC GRAVITY UA (BEAKER) (test yzqi=647) 1.003 1.001-1.035 PH UA (BEAKER) (test qrbr=601) 5.5 5.0-8.0 PROTEIN UA (BEAKER) (test ywej=802) Negative Negative GLUCOSE UA (BEAKER) (test rmdz=055) Negative Negative KETONES UA (BEAKER) (test ojlb=266) Negative Negative BILIRUBIN UA (BEAKER) (test qety=663) Negative Negative BLOOD UA (BEAKER) (test nznh=626) Negative Negative NITRITE UA (BEAKER) (test jkhz=512) Negative Negative LEUKOCYTE ESTERASE UA (BEAKER) (test pipq=648) Negative Negative UROBILINOGEN UA (BEAKER) (test eadf=624) 0.2 mg/dL 0.2-1.0 SOURCE(BEAKER) (test pxjs=6840) RAD, CHEST, 1 VIEW, NON [id number] 13:46:00Reason for exam:->chest painIs the patient ?->UnknownShould [...] Verified Date/Time : 10/15/2018 13:46:07 Reading Location: [facility] B-TYPE NATRIURETIC FACTOR ( BNP)2018-10-15 13:45:00 Test Item Value Reference Range Comments B-TYPE NATRIURETIC PEPTIDE (BEAKER) (test diga=239) < pg/mL 0-100 TROPONIN [id number] 13:42:00 Test Item Value Reference Range Comments TROPONIN I (BEAKER) (test jsln=663) < ng/mL 0.00-0.03 Troponin I (TnI) levels [...] failure, acidosis, acute neurological disease, and persistent tachyarrhythmia.[id number] 13:36:00 Test Item Value Reference Range Comments MAGNESIUM (BEAKER) (test chie=271) 1.9 mg/dL 1.6-2.6 COMPREHENSIVE METABOLIC [id number] 13:36:00 Test Item Value Reference Range Comments TOTAL PROTEIN (BEAKER) 7.7 gm/dL 6.0-8.3 (test tatm=550) ALBUMIN (BEAKER) (test 4.3 g/dL 3.5-5.0 avjq=8679) ALKALINE PHOSPHATASE 78 U/L 40-150 (BEAKER) (test blsm=388) BILIRUBIN TOTAL (BEAKER) 0.2 mg/dL 0.2-1.2 (test yojj=869) SODIUM (BEAKER) (test 140 meq/L 136-145 fawt=891) POTASSIUM (BEAKER) (test 3.7 meq/L 3.5-5.1 kqwv=664) CHLORIDE (BEAKER) (test 105 meq/L 98-107 nxjn=944) CO2 (BEAKER) (test 23 meq/L 22-29 tzth=303) BLOOD UREA NITROGEN 17 mg/dL 7-21 (BEAKER) (test oxat=118) CREATININE (BEAKER) (test 0.78 mg/dL 0.57-1.25 rebx=598) GLUCOSE RANDOM (BEAKER) 94 mg/dL 70-105 (test urao=102) CALCIUM (BEAKER) (test 10.3 mg/dL 8.4-10.2 wfnr=461) AST (SGOT) (BEAKER) (test 19 U/L 5-34 ywrl=352) ALT (SGPT) (BEAKER) (test 24 U/L 6-55 tchy=276) EGFR (BEAKER) (test 80 mL/min/1.73 sq m INSUFFICIENT CLINICAL bsjv=5580) DATA TO CALCULATE ESTIMATED GFR. CBC W/PLT COUNT & AUTO [id number] 13:09:00 Test Item Value Reference Range Comments WHITE BLOOD CELL COUNT (BEAKER) (test miki=797) 6.4 K/ L 3.5-10.5 RED BLOOD CELL COUNT (BEAKER) (test uoiu=200) 4.76 M/ L 3.93-5.22 HEMOGLOBIN (BEAKER) (test swzl=690) 14.2 GM/DL 11.2-15.7 HEMATOCRIT (BEAKER) (test iyuq=900) 42.4 % 34.1-44.9 MEAN CORPUSCULAR VOLUME (BEAKER) (test sptp=999) 89.1 fL 79.4-94.8 MEAN CORPUSCULAR HEMOGLOBIN (BEAKER) (test 29.8 pg 25.6-32.2 qtni=627) MEAN CORPUSCULAR HEMOGLOBIN CONC (BEAKER) (test 33.5 GM/DL 32.2-35.5 sdce=354) RED CELL DISTRIBUTION WIDTH (BEAKER) (test 12.0 % 11.7-14.4 amjt=553) PLATELET COUNT (BEAKER) (test iebk=747) 305 K/CU MM 150-450 MEAN PLATELET VOLUME (BEAKER) (test kabq=634) 9.3 fL 9.4-12.3 NUCLEATED RED BLOOD CELLS (BEAKER) (test 0 /100 WBC 0-0 exbs=578) NEUTROPHILS RELATIVE PERCENT (BEAKER) (test 57 % dmdh=213) LYMPHOCYTES RELATIVE PERCENT (BEAKER) (test 33 % xibs=941) MONOCYTES RELATIVE PERCENT (BEAKER) (test 8 % zruv=497) EOSINOPHILS RELATIVE PERCENT (BEAKER) (test 2 % tbom=871) BASOPHILS RELATIVE PERCENT (BEAKER) (test 1 % hhur=405) NEUTROPHILS ABSOLUTE COUNT (BEAKER) (test 3.60 K/ L 1.56-6.13 snqp=546) LYMPHOCYTES ABSOLUTE COUNT (BEAKER) (test 2.10 K/ L 1.18-3.74 vcjn=957) MONOCYTES ABSOLUTE COUNT (BEAKER) (test 0.48 K/ L 0.24-0.36 cbft=110) EOSINOPHILS ABSOLUTE COUNT (BEAKER) (test 0.13 K/ L 0.04-0.36 ueyz=082) BASOPHILS ABSOLUTE COUNT (BEAKER) (test 0.04 K/ L 0.01-0.08 xpgv=964) IMMATURE GRANULOCYTES-RELATIVE PERCENT (BEAKER) 0 % 0-1 (test rvdc=5606)
--- OUTSIDE RECORDS SUMMARY | 2019-09-16 22:43 | XMS REPORT ---
[...] Status Dosage System Date Date Gabapentin ND 52868770080 600 MG Orally Active 1 capsule Three times a day Bentyl ND 75982527159 20 MG Orally November 21, Active 1 tablet Four times a day 2018 HumuLIN 70/30 [facility] 21227611253 (70-30) 100 Jul 26, Active 10 units KwikPen UNIT/ML 2016 Subcutaneous bid Tramadol HCl ND 80668702304 50 MG Orally Active 1 tablet every 6 hrs as needed Albuterol ND 06559050675 (2.5 MG/3ML) December 23, Active 3 ml as Sulfate 0.083% 2018 needed Inhalation every 8 hrs PRN wheezing Keppra [facility] 73939827521 500 MG Orally Active take two Twice a day -2 tablet(s) by mouth twice a day. Lisinopril ND 52036653635 10 MG Orally Sep 09, Active 1 tablet Once a day 2018 ProAir HFA [facility] 37669733651 108 (90 Base) Jul 26, Active 2 puffs as MCG/ACT 2018 needed Inhalation every 6 hrs Flonase [facility] 60238751915 50 MCG/ACT Jul 26, Active 2 spray in Nasally Once a 2018 each day nostril Zestoretic [facility] 45724209074 20-25 MG Orally Jul 26, Active 1 tablet Once a day 2016 Results No Known Results Summary Purpose eClinicalWorks Submission
--- NOTE | 2019-09-16 23:13 | EDPHYS ---
Physician Documentation [facility] Name: Britt Bower Age: 44 yrs Sex: Female : 1975 Arrival Date: 09/16/2019 Time: 22:28 Bed 15 Private MD: ED Physician Jesus Rizzo HPI: 06:46 This 44 yrs old Female presents to ER via Ambulatory with complaints of Burn tw4 With Pee. 06:46 The patient presents with urinary symptoms, dysuria, frequency, hesitancy. Onset: The tw4 symptoms/episode began/occurred today. Modifying factors: The symptoms are alleviated by nothing, the symptoms are aggravated by nothing. Associated signs and symptoms: The patient has no apparent associated signs or symptoms. The patient has not experienced similar symptoms in the past. 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 LMP N/A - Hysterectomy jd3 Historical: - Allergies: 22:34 Amoxicillin; jd3 22:34 Aspirin; jd3 22:34 Coconut; jd3 22:34 diazepam; jd3 22:34 Iodine; jd3 22:34 Morphine; jd3 22:34 Ondansetron HCl; jd3 22:34 PENICILLINS; jd3 22:34 Piperacillin Sodium; jd3 22:34 shrimp; jd3 22:34 tazobactam sodium; jd3 22:34 Zofran; jd3 - Home Meds: 22:34 gabapentin 600 mg Oral tab 1 tab 3 times per day for Neuropathic Pain [Active]; Humulin jd3 70/30 100 unit/mL (70-30) Sub-Q tab for Type 2 Diabetes Mellitus [Active]; levetiracetam 500 mg Oral tab 1 tab 2 times per day for Tonic-Clonic Epilepsy Treatment Adjunct [Active]; lisinopril 10 mg Oral tab 1 tab nightly [Active]; lisinopril-hydrochlorothiazide 20-25 mg Oral tab once daily for Hypertension [Active]; - PMHx: 22:34 Asthma; Diabetes - IDDM; epilepsy; history of stroke; Hypertension; neuropathy; jd3 - PSHx: 22:34 ; Hysterectomy; Cholecystectomy; jd3 - Immunization history:: Adult Immunizations up to date. - Social history:: Smoking status: Patient denies any tobacco usage or history of. ROS: 06:46 Positive for urinary symptoms, Negative for injury or acute deformity, urinary tw4 frequency, hematuria, pelvic pain, flank pain, vaginal itching. Constitutional: Negative for fever, chills, and weight loss, Eyes: Negative for injury, pain, redness, and discharge, Cardiovascular: Negative for chest pain, palpitations, and edema, Respiratory: Negative for shortness of breath, cough, wheezing, and pleuritic chest pain, Abdomen/GI: Negative for abdominal pain, nausea, vomiting, diarrhea, and constipation, Back: Negative for injury and pain, MS/Extremity: Negative for injury and deformity, Skin: Negative for injury, rash, and discoloration. Exam: 06:46 Constitutional: This is a well developed, well nourished patient who is awake, alert, tw4 and in no acute distress. Head/Face: Normocephalic, atraumatic. Chest/axilla: Normal chest wall appearance and motion. Nontender with no deformity. No lesions are appreciated. Cardiovascular: Regular rate and rhythm with a normal S1 and S2. No gallops, murmurs, or rubs. Normal PMI, no JVD. No pulse deficits. Respiratory: Lungs have equal breath sounds bilaterally, clear to auscultation and percussion. No rales, rhonchi or wheezes noted. No increased work of breathing, no retractions or nasal flaring. Abdomen/GI: Soft, non-tender, with normal bowel sounds. No distension or tympany. No guarding or rebound. No evidence of tenderness throughout. MS/ Extremity: Pulses equal, no cyanosis. Neurovascular intact. Full, normal range of motion. Neuro: Awake and alert, GCS 15, oriented to person, place, time, and situation. Cranial nerves II-XII grossly intact. Motor strength 5/5 in all extremities. Sensory grossly intact. Cerebellar exam normal. Normal gait. Vital Signs: 09/16 22:34 BP 139 / 94; Pulse 78; Resp 17 S; Temp 97.7(TE); Pulse Ox 98% on R/A; Weight 99.79 kg jd3 (R); Height 5 ft. 0 in. (152.40 cm) (R); Pain 9/10; 23:30 BP 125 / 75; Pulse 75; Resp 16; Pulse Ox 99% ; rr5 22:34 Body Mass Index 42.97 (99.79 kg, 152.40 cm) jd3 MDM: 22:38 Patient medically screened. tw4 06:46 Data reviewed: vital signs, nurses notes. Data reviewed: lab test result(s), tw4 urinalysis, bacteruria, pyuria. Data interpreted: Pulse oximetry: Interpretation: normal. Counseling: I had a detailed discussion with the patient and/or guardian regarding: the historical points, exam findings, and any diagnostic results supporting the discharge/admit diagnosis. Special discussion: I discussed with the patient/guardian in detail that at this point there is no indication for admission to the hospital. It is understood, however, that if the symptoms persist or worsen the patient needs to return immediately for re-evaluation. 09/16 23:17 Order name: Urine Microscopic Only [facility] 09/16 22:54 Order name: Urine Dipstick-Ancillary (obtain specimen); Complete Time: 23:10 tw4 Administered Medications: No medications were administered Disposition: 09/16/19 23:12 Discharged to Home. Impression: Urinary tract infection, site not specified. - Condition is Stable. - Discharge Instructions: Urinary Tract Infection, Adult. - Prescriptions for Pyridium 200 mg Oral Tablet - take 1 tablet by ORAL route every 8 hours for 3 days; 9 tablet. Macrobid 100 mg Oral Capsule - take 1 capsule by ORAL route every 12 hours for 10 days; 20 capsule. - Work release form, Medication Reconciliation Form, Thank You Letter, Antibiotic Education, Prescription Opioid Use form. - Follow up: Private Physician; When: Upon discharge from the Emergency Department; Reason: If symptoms return, Recheck today's complaints, Continuance of care. - Problem is new. - Symptoms have improved. Signatures: Dispatcher [employer] [facility] Sebastian Negro RN RN jd3 Jesus Rizzo MD MD tw4 Volodymyr Fu RN RN rr5 Corrections: (The following items were deleted from the chart) 09/16 23:33 23:12 09/16/2019 23:12 Discharged to Home. Impression: Urinary tract infection, site rr5 not specified. Condition is Stable. Forms are Medication Reconciliation Form, Thank You Letter, Antibiotic Education, Prescription Opioid Use. Follow up: Private Physician; When: Upon discharge from the Emergency Department; Reason: If symptoms return, Recheck today's complaints, Continuance of care. Problem is new. Symptoms have improved. tw4
--- NOTE | 2019-09-16 23:13 | ER ---
Nurse's Notes [facility] Name: Britt Bower Age: 44 yrs Sex: Female : 1975 Arrival Date: 09/16/2019 Time: 22:28 Bed 15 Private MD: Diagnosis: Urinary tract infection, site not specified Presentation: 09/16 22:29 Chief complaint: Patient states: "They told me if the symptoms got worse to come back. jd3 I have burning with urination, pain down my right leg and is swollen. my sugar has been going up and down, and my lower back is hurting me". Coronavirus screen: The patient has NOT traveled to [place] in the past 14 days. The patient has NOT had contact with known and/or suspected case of Coronavirus. Proceed with normal triage procedures. Ebola Screen: Patient negative for fever greater than or equal to 101.5 degrees Fahrenheit, and additional compatible Ebola Virus Disease symptoms. Initial Sepsis Screen: Does the patient meet any 2 criteria? No. Patient's initial sepsis screen is negative. Does the patient have a suspected source of infection? No. Patient's initial sepsis screen is negative. Risk Assessment: Do you want to hurt yourself or someone else? Patient reports no desire to harm self or others. 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 LMP N/A - Hysterectomy jd3 Historical: - Allergies: 22:34 Amoxicillin; jd3 22:34 Aspirin; jd3 22:34 Coconut; jd3 22:34 diazepam; jd3 22:34 Iodine; jd3 22:34 Morphine; jd3 22:34 Ondansetron HCl; jd3 22:34 PENICILLINS; jd3 22:34 Piperacillin Sodium; jd3 22:34 shrimp; jd3 22:34 tazobactam sodium; jd3 22:34 Zofran; jd3 - Home Meds: 22:34 gabapentin 600 mg Oral tab 1 tab 3 times per day for Neuropathic Pain [Active]; Humulin jd3 70/30 100 unit/mL (70-30) Sub-Q tab for Type 2 Diabetes Mellitus [Active]; levetiracetam 500 mg Oral tab 1 tab 2 times per day for Tonic-Clonic Epilepsy Treatment Adjunct [Active]; lisinopril 10 mg Oral tab 1 tab nightly [Active]; lisinopril-hydrochlorothiazide 20-25 mg Oral tab once daily for Hypertension [Active]; - PMHx: 22:34 Asthma; Diabetes - IDDM; epilepsy; history of stroke; Hypertension; neuropathy; jd3 - PSHx: 22:34 ; Hysterectomy; Cholecystectomy; jd3 - Immunization history:: Adult Immunizations up to date. - Social history:: Smoking status: Patient denies any tobacco usage or history of. Screenin:00 Abuse screen: Denies threats or abuse. Denies injuries from another. Nutritional rr5 screening: No deficits noted. Tuberculosis screening: No symptoms or risk factors identified. Fall Risk None identified. Total Dillon Fall Scale indicates No Risk (0-24 pts). Assessment: 23:00 General: Appears in no apparent distress. comfortable, Behavior is calm, cooperative, rr5 appropriate for age. 23:00 Pain: Complains of pain in left low back and right low back Pain radiates to right leg rr5 Pain currently is 9 out of 10 on a pain scale. Quality of pain is described as aching, Pain began gradually, Is intermittent. Neuro: Level of Consciousness is awake, alert, obeys commands, Oriented to person, place, time, situation, Appropriate for age. Cardiovascular: Capillary refill < 3 seconds Patient's skin is warm and dry. Respiratory: Airway is patent Trachea midline Respiratory effort is even, unlabored, Respiratory pattern is regular, symmetrical. GI: No signs and/or symptoms were reported involving the gastrointestinal system. : Urine is clear, Reports burning with urination. EENT: No signs and/or symptoms were reported regarding the EENT system. Derm: Skin is intact, is healthy with good turgor, Skin temperature is warm. Musculoskeletal: Circulation, motion, and sensation intact. Capillary refill < 3 seconds. 23:30 Reassessment: Patient appears in no apparent distress at this time. Patient is alert, rr5 oriented x 3, equal unlabored respirations, skin warm/dry/pink. discharge instruction given and explained without complaints made. Vital Signs: 22:34 BP 139 / 94; Pulse 78; Resp 17 S; Temp 97.7(TE); Pulse Ox 98% on R/A; Weight 99.79 kg jd3 (R); Height 5 ft. 0 in. (152.40 cm) (R); Pain 9/10; 23:30 BP 125 / 75; Pulse 75; Resp 16; Pulse Ox 99% ; rr5 22:34 Body Mass Index 42.97 (99.79 kg, 152.40 cm) jd3 ED Course: 22:28 Patient arrived in ED. cl3 22:32 Triage completed. jd3 22:35 Arm band placed on. jd3 22:38 Jesus Rizzo MD is Attending Physician. tw4 23:00 Patient has correct armband on for positive identification. Bed in low position. Call rr5 light in reach. 23:04 Volodymyr Fu, RN is Primary Nurse. rr5 23:10 Urine collected: clean catch specimen, clear. rr5 23:30 No provider procedures requiring assistance completed. Patient did not have IV access rr5 during this emergency room visit. Administered Medications: No medications were administered Outcome: 23:12 Discharge ordered by . tw4 23:30 Discharged to home ambulatory. rr5 23:30 Condition: stable 23:30 Discharge instructions given to patient, Instructed on discharge instructions, follow up and referral plans. medication usage, Demonstrated understanding of instructions, follow-up care, medications, Prescriptions given X 2. 23:33 Patient left the ED. rr5 Signatures: Sebastian Negro RN RN j Jesus Rizzo MD MD tw4 Volodymyr Fu, RN RN rr5 Donald Eden cl3 Corrections: (The following items were deleted from the chart) 02:14 02 23:30 Reassessment: Patient appears in no apparent distress at this time. Patient rr5 is alert, oriented x 3, equal unlabored respirations, skin warm/dry/pink. discharge instruction given and explained without complaints made Patient denies pain at this time. rr5
[2019-09-16 23:47] VITALS: BP 139/94; TEMP 97.7; O2SAT 98
[2019-09-17 00:02] LABS: Urine Bacteria 20-50 /HPF (<20); Urine Culture Reflex Order REFLEXED; Urine Mucus 1+ /HPF (NONE SEEN); Urine RBC <5 /HPF (NONE SEEN)
== END 2019-09-16 23:33 | disposition home or self-care (01) ==
LOC: ER 22:24
DX: N39.0 Urinary tract infection, site not specified (principal); Z88.1 Allergy status to other antibiotic agents; Z88.6 Allergy status to analgesic agent; Z88.0 Allergy status to penicillin; Z91.09 Other allergy status, other than to drugs and biological substances; Z91.013 Allergy to seafood; Z91.018 Allergy to other foods; I10 Essential (primary) hypertension; E11.9 Type 2 diabetes mellitus without complications; G40.909 Epilepsy, unspecified, not intractable, without status epilepticus; Z86.73 Personal history of transient ischemic attack (TIA), and cerebral infarction without residual deficits
CPT/HCPCS: 81015; 87086; 87088; 99283

== ENCOUNTER 2019-09-18 23:11 | Emergency (ER) | payer SELFPAY ==
--- OUTSIDE RECORDS SUMMARY | 2019-09-18 23:12 | XMS REPORT ---
[...] Status Dosage System Date Date Gabapentin ND 00280297835 600 MG Orally Jul 26, Active 1 capsule Three times a 2018 day HumuLIN 70/30 ND 49013867702 (70-30) 100 Jul 26, Active 10 units KwikPen UNIT/ML 2015 Subcutaneous bid Lisinopril ND 09302658906 10 MG Orally Sep 09, Active 1 tablet Once a day 2018 Bentyl ND 90612724282 20 MG Orally November 21, Active 1 tablet Four times a day 2018 Flonase ND 10268607249 50 MCG/ACT Jul 26, Active 2 spray in Nasally Once a 2017 each day nostril Albuterol ND 09032394008 (2.5 MG/3ML) December 23, Active 3 ml as Sulfate 0.083% 2019 needed Inhalation every 8 hrs PRN wheezing Keppra ND 40535624099 500 MG Orally Active take two Twice a day -2 tablet(s) by mouth twice a day. Zestoretic [facility] 77545982609 20-25 MG Orally Jul 26, Active 1 tablet Once a day 2015 ProAir HFA [facility] 11890622457 108 (90 Base) Jul 26, Active 2 puffs as MCG/ACT 2017 needed Inhalation every 6 hrs Tramadol HCl [facility] 24431057230 50 MG Orally Active 1 tablet every 6 hrs as needed Results No Known Results Summary Purpose eClinicalWorks Submission
--- OUTSIDE RECORDS SUMMARY | 2019-09-18 23:12 | XMS REPORT ---
:1975 [facility] [address] [place] [address] Care Team Providers Name Role Phone KALEE [...] Reference Range Comments TEST URINE (BEAKER) (test iquk=552) Negative URINALYSIS WITH MICROSCOPIC IF [id number] 14:55:00 Test Item Value Reference Range Comments COLOR (BEAKER) (test euew=139) Colorless CLARITY (BEAKER) (test aota=318) Clear SPECIFIC GRAVITY UA (BEAKER) (test hpiy=550) 1.003 1.001-1.035 PH UA (BEAKER) (test qplb=285) 5.5 5.0-8.0 PROTEIN UA (BEAKER) (test sits=734) Negative Negative GLUCOSE UA (BEAKER) (test zrqg=670) Negative Negative KETONES UA (BEAKER) (test rqmb=106) Negative Negative BILIRUBIN UA (BEAKER) (test uvvp=902) Negative Negative BLOOD UA (BEAKER) (test qtcl=828) Negative Negative NITRITE UA (BEAKER) (test yjhb=185) Negative Negative LEUKOCYTE ESTERASE UA (BEAKER) (test enin=104) Negative Negative UROBILINOGEN UA (BEAKER) (test zvmb=329) 0.2 mg/dL 0.2-1.0 SOURCE(BEAKER) (test nwmz=9935) RAD, CHEST, 1 VIEW, NON [id number] 13:46:00Reason for exam:->chest painIs the patient ?->UnknownShould [...] Verified Date/Time : 10/15/2018 13:46:07 Reading Location: [facility] B-TYPE NATRIURETIC FACTOR ( BNP)2018-10-15 13:45:00 Test Item Value Reference Range Comments B-TYPE NATRIURETIC PEPTIDE (BEAKER) (test zlik=838) < pg/mL 0-100 TROPONIN [id number] 13:42:00 Test Item Value Reference Range Comments TROPONIN I (BEAKER) (test bzwv=289) < ng/mL 0.00-0.03 Troponin I (TnI) levels [...] failure, acidosis, acute neurological disease, and persistent tachyarrhythmia.[id number] 13:36:00 Test Item Value Reference Range Comments MAGNESIUM (BEAKER) (test uaqu=719) 1.9 mg/dL 1.6-2.6 COMPREHENSIVE METABOLIC [id number] 13:36:00 Test Item Value Reference Range Comments TOTAL PROTEIN (BEAKER) 7.7 gm/dL 6.0-8.3 (test gdqy=547) ALBUMIN (BEAKER) (test 4.3 g/dL 3.5-5.0 lwad=7947) ALKALINE PHOSPHATASE 78 U/L 40-150 (BEAKER) (test knxu=396) BILIRUBIN TOTAL (BEAKER) 0.2 mg/dL 0.2-1.2 (test yapr=205) SODIUM (BEAKER) (test 140 meq/L 136-145 yzmh=901) POTASSIUM (BEAKER) (test 3.7 meq/L 3.5-5.1 upkd=484) CHLORIDE (BEAKER) (test 105 meq/L 98-107 ofup=255) CO2 (BEAKER) (test 23 meq/L 22-29 mbxo=871) BLOOD UREA NITROGEN 17 mg/dL 7-21 (BEAKER) (test djtd=087) CREATININE (BEAKER) (test 0.78 mg/dL 0.57-1.25 knbx=485) GLUCOSE RANDOM (BEAKER) 94 mg/dL 70-105 (test wffc=384) CALCIUM (BEAKER) (test 10.3 mg/dL 8.4-10.2 hsob=665) AST (SGOT) (BEAKER) (test 19 U/L 5-34 ufoi=476) ALT (SGPT) (BEAKER) (test 24 U/L 6-55 nsex=260) EGFR (BEAKER) (test 80 mL/min/1.73 sq m INSUFFICIENT CLINICAL jwig=5375) DATA TO CALCULATE ESTIMATED GFR. CBC W/PLT COUNT & AUTO [id number] 13:09:00 Test Item Value Reference Range Comments WHITE BLOOD CELL COUNT (BEAKER) (test zdpo=692) 6.4 K/ L 3.5-10.5 RED BLOOD CELL COUNT (BEAKER) (test btyk=932) 4.76 M/ L 3.93-5.22 HEMOGLOBIN (BEAKER) (test sftm=416) 14.2 GM/DL 11.2-15.7 HEMATOCRIT (BEAKER) (test nybi=982) 42.4 % 34.1-44.9 MEAN CORPUSCULAR VOLUME (BEAKER) (test jkmk=082) 89.1 fL 79.4-94.8 MEAN CORPUSCULAR HEMOGLOBIN (BEAKER) (test 29.8 pg 25.6-32.2 mpki=849) MEAN CORPUSCULAR HEMOGLOBIN CONC (BEAKER) (test 33.5 GM/DL 32.2-35.5 leoi=919) RED CELL DISTRIBUTION WIDTH (BEAKER) (test 12.0 % 11.7-14.4 tkeh=633) PLATELET COUNT (BEAKER) (test ugap=587) 305 K/CU MM 150-450 MEAN PLATELET VOLUME (BEAKER) (test xbsf=602) 9.3 fL 9.4-12.3 NUCLEATED RED BLOOD CELLS (BEAKER) (test 0 /100 WBC 0-0 elwr=709) NEUTROPHILS RELATIVE PERCENT (BEAKER) (test 57 % saoj=301) LYMPHOCYTES RELATIVE PERCENT (BEAKER) (test 33 % vkaw=729) MONOCYTES RELATIVE PERCENT (BEAKER) (test 8 % rkla=024) EOSINOPHILS RELATIVE PERCENT (BEAKER) (test 2 % okhd=335) BASOPHILS RELATIVE PERCENT (BEAKER) (test 1 % ierh=713) NEUTROPHILS ABSOLUTE COUNT (BEAKER) (test 3.60 K/ L 1.56-6.13 efqo=209) LYMPHOCYTES ABSOLUTE COUNT (BEAKER) (test 2.10 K/ L 1.18-3.74 vvis=818) MONOCYTES ABSOLUTE COUNT (BEAKER) (test 0.48 K/ L 0.24-0.36 hump=358) EOSINOPHILS ABSOLUTE COUNT (BEAKER) (test 0.13 K/ L 0.04-0.36 wsmy=298) BASOPHILS ABSOLUTE COUNT (BEAKER) (test 0.04 K/ L 0.01-0.08 nffz=641) IMMATURE GRANULOCYTES-RELATIVE PERCENT (BEAKER) 0 % 0-1 (test iwrt=0089)
--- OUTSIDE RECORDS SUMMARY | 2019-09-18 23:13 | XMS REPORT ---
[...] Status Dosage System Date Date Gabapentin ND 25260566002 600 MG Orally Active 1 capsule Three times a day Bentyl ND 92325252961 20 MG Orally November 21, Active 1 tablet Four times a day 2018 HumuLIN 70/30 [facility] 77494849946 (70-30) 100 Jul 26, Active 10 units KwikPen UNIT/ML 2016 Subcutaneous bid Tramadol HCl ND 93939231848 50 MG Orally Active 1 tablet every 6 hrs as needed Albuterol ND 32493359615 (2.5 MG/3ML) December 23, Active 3 ml as Sulfate 0.083% 2018 needed Inhalation every 8 hrs PRN wheezing Keppra [facility] 87320148816 500 MG Orally Active take two Twice a day -2 tablet(s) by mouth twice a day. Lisinopril ND 46824574345 10 MG Orally Sep 09, Active 1 tablet Once a day 2018 ProAir HFA [facility] 06669851052 108 (90 Base) Jul 26, Active 2 puffs as MCG/ACT 2018 needed Inhalation every 6 hrs Flonase [facility] 23572782844 50 MCG/ACT Jul 26, Active 2 spray in Nasally Once a 2018 each day nostril Zestoretic [facility] 69797058591 20-25 MG Orally Jul 26, Active 1 tablet Once a day 2016 Results No Known Results Summary Purpose eClinicalWorks Submission
[2019-09-19 02:33] LABS: Absolute Lymphocytes (CBC) 2.2 K/uL (0.7-4.9); Basophils % 0.9 % (0-1.3); Hematocrit 36.3 % (36.0-45.0); Lymphocytes % 41.8 % (15.3-44.8); MPV 7.8 fL (7.6-11.3); RBC Red Blood Cell Count 4.11 M/uL (3.86-4.86)
[2019-09-19 02:42] LABS: Potassium 3.4 mmol/L (3.5-5.1)
[2019-09-19] MEDS ORDERED: TRAMADOL HCL 50 MG TAB ONE (03:23)
[2019-09-19] MEDS ORDERED: PROMETHAZINE INJ 25 MG/ML AMP ONE (03:36)
[2019-09-19 04:01] LABS: Urine Blood NEGATIVE (NEG); Urine Glucose NEGATIVE (NEG); Urine Protein NEGATIVE (NEG); Urine Specific Gravity 1.015 (1.005-1.030)
[2019-09-19] MEDS ORDERED: POTASSIUM CL SA 10 MEQ TAB PO ONE (04:07)
--- NOTE | 2019-09-19 04:21 | EDPHYS ---
Physician Documentation [facility] Name: Britt Bower Age: 44 yrs Sex: Female : 1975 Arrival Date: 09/18/2019 Time: 23:12 Bed 17 Private MD: ED Physician Sudhir Lee HPI: 09/18 01:21 This 44 yrs old Female presents to ER via Ambulatory with complaints of Low pkl Back Pain. 01:21 The patient presents with pain that is acute. The symptoms are located in the low back. pkl The pain does not radiate. The problem was sustained from unknown cause. Onset: The symptoms/episode began/occurred 3 day(s) ago. Associated signs and symptoms: The patient has no apparent associated signs or symptoms. 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 bb Historical: - Allergies: 00:38 Amoxicillin; bb 00:38 Aspirin; bb 00:38 Coconut; bb 00:38 diazepam; bb 00:38 Iodine; bb 00:38 Morphine; bb 00:38 Ondansetron HCl; bb 00:38 PENICILLINS; bb 00:38 Piperacillin Sodium; bb 00:38 shrimp; bb 00:38 tazobactam sodium; bb 00:38 Zofran; bb - Home Meds: 00:38 gabapentin 600 mg Oral tab 1 tab 3 times per day for Neuropathic Pain [Active]; Humulin bb 70/30 100 unit/mL (70-30) Sub-Q tab for Type 2 Diabetes Mellitus [Active]; levetiracetam 500 mg Oral tab 1 tab 2 times per day for Tonic-Clonic Epilepsy Treatment Adjunct [Active]; lisinopril 10 mg Oral tab 1 tab nightly [Active]; lisinopril-hydrochlorothiazide 20-25 mg Oral tab once daily for Hypertension [Active]; - PMHx: 00:38 Asthma; Diabetes - IDDM; epilepsy; history of stroke; Hypertension; neuropathy; bb - PSHx: 00:38 ; Hysterectomy; Cholecystectomy; bb - Immunization history:: Adult Immunizations up to date. - Social history:: Smoking status: Patient denies any tobacco usage or history of. ROS: 01:21 Eyes: Negative for injury, pain, redness, and discharge, ENT: Negative for injury, pkl pain, and discharge, Neck: Negative for injury, pain, and swelling, Cardiovascular: Negative for chest pain, palpitations, and edema, Respiratory: Negative for shortness of breath, cough, wheezing, and pleuritic chest pain, Abdomen/GI: Negative for abdominal pain, nausea, vomiting, diarrhea, and constipation. 01:21 Back: Positive for pain at rest, of the lower back. 01:21 : Negative for urinary symptoms. 01:21 MS/extremity: Negative for acute changes. 01:21 Skin: Negative for rash. 01:21 Neuro: Negative for altered mental status. Exam: 01:21 Head/Face: Normocephalic, atraumatic. Eyes: Pupils equal round and reactive to light, pkl extra-ocular motions intact. Lids and lashes normal. Conjunctiva and sclera are non-icteric and not injected. Cornea within normal limits. Periorbital areas with no swelling, redness, or edema. ENT: Nares patent. No nasal discharge, no septal abnormalities noted. Tympanic membranes are normal and external auditory canals are clear. Oropharynx with no redness, swelling, or masses, exudates, or evidence of obstruction, uvula midline. Mucous membranes moist. Neck: Trachea midline, no thyromegaly or masses palpated, and no cervical lymphadenopathy. Supple, full range of motion without nuchal rigidity, or vertebral point tenderness. No Meningismus. Chest/axilla: Normal chest wall appearance and motion. Nontender with no deformity. No lesions are appreciated. Cardiovascular: Regular rate and rhythm with a normal S1 and S2. No gallops, murmurs, or rubs. Normal PMI, no JVD. No pulse deficits. Respiratory: Lungs have equal breath sounds bilaterally, clear to auscultation and percussion. No rales, rhonchi or wheezes noted. No increased work of breathing, no retractions or nasal flaring. 01:21 Abdomen/GI: Bowel sounds: normal, Palpation: abdomen is soft and non-tender, in all quadrants. 01:21 Back: pain, that is moderate, Straight leg raises: of both lower extremities does not illicit pain. 01:21 : Exam negative for acute changes. 01:21 Musculoskeletal/extremity: Extremities: grossly normal except: noted in the both legs: swelling. 01:21 Skin: Exam negative for rash. 01:21 Neuro: Orientation: is normal, Mentation: is normal, Cranial nerves: grossly normal, Motor: is normal. Vital Signs: 00:35 BP 124 / 86; Pulse 73; Resp 16 S; Temp 98(O); Pulse Ox 98% on R/A; Weight 98.43 kg (R); bb Height 5 ft. 0 in. (152.40 cm) (R); Pain 9/10; 01:20 BP 104 / 64; Pulse 66; Resp 18; Temp 97.7; Pulse Ox 99% ; Height 5 ft. 0 in. (152.40 bb3 cm); 01:20 Weight 98.43 kg; Pain 8/10; bb3 02:54 BP 123 / 81; Pulse 68; Resp 18; Pulse Ox 98% ; Pain 8/10; bb3 03:50 BP 112 / 91; Pulse 91; Resp 18; Pulse Ox 95% ; Pain 6/10; bb3 05:26 BP 112 / 91; Pulse 91; Resp 18; Pulse Ox 95% ; Pain 6/10; bb3 01:20 Body Mass Index 42.38 (98.43 kg, 152.40 cm) bb3 MDM: 01:00 Patient medically screened. pkl 04:19 Data reviewed: vital signs, nurses notes, lab test result(s), radiologic studies, CT pkl scan, ultrasound. 04:27 ED course: Discussed lab. and imaging results with patient. Advised to follow up with pkl pain management for further evaluations. Patient understood instructions. 09/18 01:16 Order name: CBC with Diff; Complete Time: 03:06 pkl 09/18 01:16 Order name: Chem 7; Complete Time: 03:06 pkl 09/18 01:16 Order name: D-Dimer; Complete Time: 04:22 pkl 09/18 01:16 Order name: CT Lumbar Spine Wo Con pkl 09/18 02:04 Order name: US Extremity Venous W Compression Juan pkl 09/18 02:40 Order name: Urine Dipstick--Ancillary (enter results); Complete Time: 04:06 bb 09/18 02:38 Order name: Urine Dipstick-Ancillary (obtain specimen); Complete Time: 02:41 bb Administered Medications: 09/17 03:10 Drug: traMADol 50 mg Route: PO; bb3 09/18 04:45 Follow up: Response: No adverse reaction; Pain is unchanged, physician notified bb3 09/17 03:40 Drug: Phenergan 12.5 mg Route: IVP; Site: left hand; 3 09/18 04:08 Follow up: Response: No adverse reaction; No change in condition; Nausea unchanged 09/17 04:05 Drug: K-Dur 20 mEq Route: PO; 09/18 04:45 Follow up: Response: No adverse reaction 3 09/17 04:40 Drug: Demerol 50 mg Route: IVP; Site: left hand; 3 09/18 05:26 Follow up: BP 112 / 91; Pulse 91 bpm; Resp 18 bpm; Pulse Ox 95% ; Pain 6/10 Adult bb3 Disposition: 09/19/19 04:20 Discharged to Home. Impression: Acute low back pain. - Condition is Stable. - Medication Reconciliation Form, Thank You Letter, Antibiotic Education, Prescription Opioid Use form. - Follow up: Private Physician; When: 2 - 3 days; Reason: Re-evaluation by your physician. - Problem is new. - Symptoms have improved. Signatures: Dispatcher [employer] EDMS Sudhir Lee MD MD pkl Yudith Valladares RN RN bb Rafi Cooney RN RN [facility] Emily Franco bb3 Corrections: (The following items were deleted from the chart) 05:32 04:20 09/19/2019 04:20 Discharged to Home. Impression: Acute low back pain. Condition bb3 is Stable. Forms are Medication Reconciliation Form, Thank You Letter, Antibiotic Education, Prescription Opioid Use. Follow up: Private Physician; When: 2 - 3 days; Reason: Re-evaluation by your physician. Problem is new. Symptoms have improved. pkl
--- NOTE | 2019-09-19 04:21 | ER ---
Nurse's Notes [facility] Name: Britt Bower Age: 44 yrs Sex: Female : 1975 Arrival Date: 09/18/2019 Time: 23:12 Bed 17 Private MD: Diagnosis: Acute low back pain Presentation: 09/18 00:35 Chief complaint: Patient states: she is having lower back pain x 3 days but worse bb today. Coronavirus screen: The patient has NOT traveled to [place] in the past 14 days. Proceed with normal triage procedures. Ebola Screen: No symptoms or risks identified at this time. Initial Sepsis Screen: Does the patient meet any 2 criteria? No. Patient's initial sepsis screen is negative. Does the patient have a suspected source of infection? No. Patient's initial sepsis screen is negative. Risk Assessment: Do you want to hurt yourself or someone else? Patient reports no desire to harm self or others. Onset of symptoms was September 15, 2019. 00:35 Method Of Arrival: Ambulatory bb 00:35 Acuity: [facility] 3 bb Triage Assessment: 02:48 General: Appears in no apparent distress. uncomfortable. Pain: Complains of pain in bb3 lumbar area, low back area and left low back Pain currently is 8 out of 10 on a pain scale. Quality of pain is described as sharp. EENT: No deficits noted. Neuro: Reports hx of cva with mild rt sided weakness. Respiratory: No deficits noted. 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 bb Historical: - Allergies: 00:38 Amoxicillin; bb 00:38 Aspirin; bb 00:38 Coconut; bb 00:38 diazepam; bb 00:38 Iodine; bb 00:38 Morphine; bb 00:38 Ondansetron HCl; bb 00:38 PENICILLINS; bb 00:38 Piperacillin Sodium; bb 00:38 shrimp; bb 00:38 tazobactam sodium; bb 00:38 Zofran; bb - Home Meds: 00:38 gabapentin 600 mg Oral tab 1 tab 3 times per day for Neuropathic Pain [Active]; Humulin bb 70/30 100 unit/mL (70-30) Sub-Q tab for Type 2 Diabetes Mellitus [Active]; levetiracetam 500 mg Oral tab 1 tab 2 times per day for Tonic-Clonic Epilepsy Treatment Adjunct [Active]; lisinopril 10 mg Oral tab 1 tab nightly [Active]; lisinopril-hydrochlorothiazide 20-25 mg Oral tab once daily for Hypertension [Active]; - PMHx: 00:38 Asthma; Diabetes - IDDM; epilepsy; history of stroke; Hypertension; neuropathy; bb - PSHx: 00:38 ; Hysterectomy; Cholecystectomy; bb - Immunization history:: Adult Immunizations up to date. - Social history:: Smoking status: Patient denies any tobacco usage or history of. Screenin:30 Abuse screen: Denies threats or abuse. Nutritional screening: No deficits noted. bb Tuberculosis screening: No symptoms or risk factors identified. Fall Risk None identified. Assessment: 02:50 General: Appears uncomfortable, Behavior is calm, cooperative, appropriate for age. bb3 Pain: Pain currently is 8 out of 10 on a pain scale. 03:50 Reassessment: Patient and/or family updated on plan of care and expected duration. Pain bb3 level reassessed. Patient is alert, oriented x 3, equal unlabored respirations, skin warm/dry/pink. Patient states feeling better. Patient states symptoms have improved. General: Appears in no apparent distress. Pain: Pain currently is 6 out of 10 on a pain scale. Vital Signs: 00:35 BP 124 / 86; Pulse 73; Resp 16 S; Temp 98(O); Pulse Ox 98% on R/A; Weight 98.43 kg (R); bb Height 5 ft. 0 in. (152.40 cm) (R); Pain 9/10; 01:20 BP 104 / 64; Pulse 66; Resp 18; Temp 97.7; Pulse Ox 99% ; Height 5 ft. 0 in. (152.40 bb3 cm); 01:20 Weight 98.43 kg; Pain 8/10; bb3 02:54 BP 123 / 81; Pulse 68; Resp 18; Pulse Ox 98% ; Pain 8/10; bb3 03:50 BP 112 / 91; Pulse 91; Resp 18; Pulse Ox 95% ; Pain 6/10; bb3 05:26 BP 112 / 91; Pulse 91; Resp 18; Pulse Ox 95% ; Pain 6/10; bb3 01:20 Body Mass Index 42.38 (98.43 kg, 152.40 cm) bb3 ED Course: 09/17 23:12 Patient arrived in ED. cl3 09/18 00:37 Triage completed. bb 00:38 Arm band placed on Patient placed in waiting room, Patient notified of wait time. bb Family accompanied patient. 00:59 Sudhir Lee MD is Attending Physician. pkl 01:30 Patient has correct armband on for positive identification. Bed in low position. Call bb light in reach. Side rails up X 1. Pulse ox on. NIBP on. Warm blanket given. 01:58 CT Lumbar Spine Wo Con In Process Unspecified. EDMS 02:15 Inserted saline lock: 24 gauge in right hand, using aseptic technique. Blood collected. mb4 02:15 Initial lab(s) drawn, by me, sent to lab. mb4 04:10 No provider procedures requiring assistance completed. bb3 04:21 US Extremity Venous W Compression Juan In Process Unspecified. EDMS Administered Medications: 09/17 03:10 Drug: traMADol 50 mg Route: PO; bb3 09/18 04:45 Follow up: Response: No adverse reaction; Pain is unchanged, physician notified bb3 09/17 03:40 Drug: Phenergan 12.5 mg Route: IVP; Site: left hand; bb3 09/18 04:08 Follow up: Response: No adverse reaction; No change in condition; Nausea unchanged bb3 09/17 04:05 Drug: K-Dur 20 mEq Route: PO; bb3 09/18 04:45 Follow up: Response: No adverse reaction bb3 09/17 04:40 Drug: Demerol 50 mg Route: IVP; Site: left hand; bb3 09/18 05:26 Follow up: BP 112 / 91; Pulse 91 bpm; Resp 18 bpm; Pulse Ox 95% ; Pain 6/10 Adult bb3 Outcome: 04:20 Discharge ordered by . pkl 05:29 Discharged to home via wheelchair, with significant other. bb3 05:29 Condition: improved 05:29 Discharge instructions given to patient, Instructed on discharge instructions, follow up and referral plans. medication usage, Demonstrated understanding of instructions, follow-up care. 05:32 Patient left the ED. bb3 Signatures: Dispatcher [employer] EDMS Sudhir Lee MD MD pkl Yudith Valladares, RN RN bb Romy Mcmullen mb4 Donald Eden cl3 Emily Franco bb3
[2019-09-19] MEDS ORDERED: MEPERIDINE HCL 50 MG/ML ONE (04:40)
[2019-09-19 06:01] VITALS: TEMP 97.7
[2019-09-19 06:04] VITALS: BP 112/91; O2SAT 95
--- NOTE | 2019-09-19 06:57 | RAD REPORT ---
EXAM DESCRIPTION: US - Extrem Venous W Compress Juan - 09/19/2019 4:21 am CLINICAL HISTORY: swelling boyh legs Bilateral leg edema and swelling. COMPARISON: Extremity Venous Uni Ltd dated 12/07/2017 TECHNIQUE: Real-time sonographic interrogation of the left and right lower extremity deep venous sys tems was performed. FINDINGS: Normal compressibility, flow augmentation, phasic flow and spontaneous flow is identified in both the left and right lower extremity deep venous systems. IMPRESSION: No sonographic evidence of left or right lower extremity deep venous thrombosis.
--- NOTE | 2019-09-19 11:37 | RAD REPORT ---
EXAM DESCRIPTION: CT Spine Lumbar Wo Con CLINICAL HISTORY: Low back pain TECHNIQUE: Contiguous axial CT images obtained through the lumbar spine without IV contrast. Coronal and sagittal reformatted images also provided. This exam was performed according to our departmental dose-optimization program, which includes autom ated exposure control, adjustment of the mA and/or kV according to patient size and/or use of iterati ve reconstruction technique. COMPARISON: None available for comparison FINDINGS: Vertebra: No acute or remote fracture deformity. No subluxation. Disc spaces: Mild multilevel degenerative changes. No canal stenosis. Foramina appear patent. Soft tissues: Unremarkable IMPRESSION: No acute injury. Mild multilevel degenerative changes. Electronically signed by: Ashley Tipton MD 09/19/2019 2:18 AM PRICER Due to temporary technical issues with the PACS/Fluency reporting system, reports are being signed by the in house radiologist as a courtesy to ensure prompt reporting. The interpreting radiologist is f ully responsible for the content of the report.
== END 2019-09-19 05:32 | disposition home or self-care (01) ==
LOC: ER 23:11
DX: M54.5 Low back pain (principal); Z88.1 Allergy status to other antibiotic agents; Z91.09 Other allergy status, other than to drugs and biological substances; Z88.6 Allergy status to analgesic agent; Z88.0 Allergy status to penicillin; Z91.013 Allergy to seafood; Z91.018 Allergy to other foods; E11.9 Type 2 diabetes mellitus without complications; Z79.4 Long term (current) use of insulin; I10 Essential (primary) hypertension; Z86.73 Personal history of transient ischemic attack (TIA), and cerebral infarction without residual deficits; G40.909 Epilepsy, unspecified, not intractable, without status epilepticus
CPT/HCPCS: 36415; 72131; 80048; 81003; 85025; 85379; 93970; 96374; 96375; 99284; J2175; J2550

== ENCOUNTER 2019-09-29 14:34 | Emergency (ER) | payer SELFPAY ==
[2012-04-03 05:44] VITALS: BP 121/78
--- OUTSIDE RECORDS SUMMARY | 2019-09-29 14:36 | XMS REPORT ---
:1975 [facility] Address [address] [place] [address] Care Team Providers Name Role Phone KALEE SANCEHZ Unavailable Unavailable Problems This patient has no known problems. Allergies, Adverse Reactions, Alerts This patient has no known allergies or adverse reactions. Medications This patient has no known medications. Results Test Description Test Time Test Comments Text Results Atomic Results Result Comments SCREEN, URINE 2018-10-15 15:27:00 Test Item Value Reference Range Comments TEST URINE (BEAKER) (test bfxe=723) Negative URINALYSIS WITH MICROSCOPIC IF [id number] 14:55:00 Test Item Value Reference Range Comments COLOR (BEAKER) (test yjij=412) Colorless CLARITY (BEAKER) (test biam=914) Clear SPECIFIC GRAVITY UA (BEAKER) (test nclw=886) 1.003 1.001-1.035 PH UA (BEAKER) (test kcog=540) 5.5 5.0-8.0 PROTEIN UA (BEAKER) (test ftss=503) Negative Negative GLUCOSE UA (BEAKER) (test lzfe=386) Negative Negative KETONES UA (BEAKER) (test xapl=673) Negative Negative BILIRUBIN UA (BEAKER) (test upbi=058) Negative Negative BLOOD UA (BEAKER) (test kbta=290) Negative Negative NITRITE UA (BEAKER) (test oxnp=288) Negative Negative LEUKOCYTE ESTERASE UA (BEAKER) (test dhmd=203) Negative Negative UROBILINOGEN UA (BEAKER) (test swed=789) 0.2 mg/dL 0.2-1.0 SOURCE(BEAKER) (test cgcn=2806) RAD, CHEST, 1 VIEW, NON [id number] 13:46:00Reason for exam:->chest painIs the patient ?->UnknownShould [...] Verified Date/Time : 10/15/2018 13:46:07 Reading Location: [facility] B-TYPE NATRIURETIC FACTOR ( BNP)2018-10-15 13:45:00 Test Item Value Reference Range Comments B-TYPE NATRIURETIC PEPTIDE (BEAKER) (test tabs=921) < pg/mL 0-100 TROPONIN [id number] 13:42:00 Test Item Value Reference Range Comments TROPONIN I (BEAKER) (test qitx=022) < ng/mL 0.00-0.03 Troponin I (TnI) levels [...] failure, acidosis, acute neurological disease, and persistent tachyarrhythmia.[id number] 13:36:00 Test Item Value Reference Range Comments MAGNESIUM (BEAKER) (test laro=991) 1.9 mg/dL 1.6-2.6 COMPREHENSIVE METABOLIC [id number] 13:36:00 Test Item Value Reference Range Comments TOTAL PROTEIN (BEAKER) 7.7 gm/dL 6.0-8.3 (test xlqv=650) ALBUMIN (BEAKER) (test 4.3 g/dL 3.5-5.0 thtb=4388) ALKALINE PHOSPHATASE 78 U/L 40-150 (BEAKER) (test qyck=433) BILIRUBIN TOTAL (BEAKER) 0.2 mg/dL 0.2-1.2 (test cdyy=274) SODIUM (BEAKER) (test 140 meq/L 136-145 pxaf=952) POTASSIUM (BEAKER) (test 3.7 meq/L 3.5-5.1 kslj=314) CHLORIDE (BEAKER) (test 105 meq/L 98-107 eygu=349) CO2 (BEAKER) (test 23 meq/L 22-29 dzzh=610) BLOOD UREA NITROGEN 17 mg/dL 7-21 (BEAKER) (test phac=787) CREATININE (BEAKER) (test 0.78 mg/dL 0.57-1.25 zzxf=685) GLUCOSE RANDOM (BEAKER) 94 mg/dL 70-105 (test cjec=246) CALCIUM (BEAKER) (test 10.3 mg/dL 8.4-10.2 sjdr=176) AST (SGOT) (BEAKER) (test 19 U/L 5-34 ojsf=435) ALT (SGPT) (BEAKER) (test 24 U/L 6-55 fnaq=346) EGFR (BEAKER) (test 80 mL/min/1.73 sq m INSUFFICIENT CLINICAL qvha=0966) DATA TO CALCULATE ESTIMATED GFR. CBC W/PLT COUNT & AUTO [id number] 13:09:00 Test Item Value Reference Range Comments WHITE BLOOD CELL COUNT (BEAKER) (test nvmv=419) 6.4 K/ L 3.5-10.5 RED BLOOD CELL COUNT (BEAKER) (test kwhs=613) 4.76 M/ L 3.93-5.22 HEMOGLOBIN (BEAKER) (test toyz=917) 14.2 GM/DL 11.2-15.7 HEMATOCRIT (BEAKER) (test ewks=298) 42.4 % 34.1-44.9 MEAN CORPUSCULAR VOLUME (BEAKER) (test feom=231) 89.1 fL 79.4-94.8 MEAN CORPUSCULAR HEMOGLOBIN (BEAKER) (test 29.8 pg 25.6-32.2 kwhi=503) MEAN CORPUSCULAR HEMOGLOBIN CONC (BEAKER) (test 33.5 GM/DL 32.2-35.5 ypye=672) RED CELL DISTRIBUTION WIDTH (BEAKER) (test 12.0 % 11.7-14.4 vqmp=925) PLATELET COUNT (BEAKER) (test hvyv=384) 305 K/CU MM 150-450 MEAN PLATELET VOLUME (BEAKER) (test xgvj=367) 9.3 fL 9.4-12.3 NUCLEATED RED BLOOD CELLS (BEAKER) (test 0 /100 WBC 0-0 sbjh=363) NEUTROPHILS RELATIVE PERCENT (BEAKER) (test 57 % ycpo=298) LYMPHOCYTES RELATIVE PERCENT (BEAKER) (test 33 % eeav=281) MONOCYTES RELATIVE PERCENT (BEAKER) (test 8 % zkle=621) EOSINOPHILS RELATIVE PERCENT (BEAKER) (test 2 % mufu=079) BASOPHILS RELATIVE PERCENT (BEAKER) (test 1 % wtaf=268) NEUTROPHILS ABSOLUTE COUNT (BEAKER) (test 3.60 K/ L 1.56-6.13 wsut=774) LYMPHOCYTES ABSOLUTE COUNT (BEAKER) (test 2.10 K/ L 1.18-3.74 oggy=359) MONOCYTES ABSOLUTE COUNT (BEAKER) (test 0.48 K/ L 0.24-0.36 dvni=326) EOSINOPHILS ABSOLUTE COUNT (BEAKER) (test 0.13 K/ L 0.04-0.36 qyew=477) BASOPHILS ABSOLUTE COUNT (BEAKER) (test 0.04 K/ L 0.01-0.08 onpd=105) IMMATURE GRANULOCYTES-RELATIVE PERCENT (BEAKER) 0 % 0-1 (test zzsy=5836)
--- OUTSIDE RECORDS SUMMARY | 2019-09-29 14:36 | XMS REPORT ---
[...] Status Dosage System Date Date Gabapentin ND 24553044219 600 MG Orally Jul 26, Active 1 capsule Three times a 2018 day HumuLIN 70/30 ND 20839322299 (70-30) 100 Jul 26, Active 10 units KwikPen UNIT/ML 2015 Subcutaneous bid Lisinopril ND 80403047771 10 MG Orally Sep 09, Active 1 tablet Once a day 2018 Bentyl ND 69468328208 20 MG Orally November 21, Active 1 tablet Four times a day 2018 Flonase ND 87589902882 50 MCG/ACT Jul 26, Active 2 spray in Nasally Once a 2017 each day nostril Albuterol ND 87208355472 (2.5 MG/3ML) December 23, Active 3 ml as Sulfate 0.083% 2019 needed Inhalation every 8 hrs PRN wheezing Keppra ND 31873622405 500 MG Orally Active take two Twice a day -2 tablet(s) by mouth twice a day. Zestoretic [facility] 65428116163 20-25 MG Orally Jul 26, Active 1 tablet Once a day 2015 ProAir HFA [facility] 90615725708 108 (90 Base) Jul 26, Active 2 puffs as MCG/ACT 2017 needed Inhalation every 6 hrs Tramadol HCl [facility] 91759142150 50 MG Orally Active 1 tablet every 6 hrs as needed Results No Known Results Summary Purpose eClinicalWorks Submission
--- OUTSIDE RECORDS SUMMARY | 2019-09-29 14:37 | XMS REPORT | Summary of Care ---
:1975 Author Organization [facility] - Health Address [address] [place] [address] Care Team Providers Name Role Phone Lubna Hunt Primary Care Provider Encounter Details Date Type Department Care Team Description 09/27/2019 Orders Only [facility] Doctor Unassigned, No [address] [facility] [place] [address] [address] [place] [address] Allergies Active Allergy Reactions Severity Noted Date Comments Aspirin Anaphylaxis, Rash 12/03/2006 Iodine Anaphylaxis 11/22/2016 Morphine Palpitations, Shortness of Breath 03/22/2017 Penicillin Hives, Shortness of Breath, Other - 04/06/2015 See comments Diazepam Rash 12/03/2006 Ondansetron Hcl (Pf) Hives, Other - See comments 04/06/2015 documented as of this encounter (statuses as of 09/27/2019) Medications Medication Sig Dispensed Refills Start Date [...] needed for recurrence not specified Cough. sod [id number] Use 1 Bottle 1 Each 0 06/09/2019 Active bottle (NEILMED SINUS in each RINSE COMPLETE) nostril 2 pkdvIndications: Acute (two) times maxillary sinusitis, daily. Use in recurrence not specified hot shower 1 hour before bedtime documented as of this encounter (statuses as of 09/27/2019) Active Problems No known active problemsdocumented as [...] Health Maintenance Due Date Last Done Comments DTaP,Tdap,and Td Vaccines (1 - 1985 03/22/2017 Tdap) PAP SMEAR 10/08/2013 10/08/2010 Breast Cancer Screening 2014 (MAMMOGRAM) INFLUENZA VACCINE (#1) 2019 PNEUMOCOCCAL 0-64 YEARS COMBINED Aged Out No longer eligible based on SERIES patient's age to complete this topic documented as of this encounter Procedures Procedure Name Priority Date/Time Associated Diagnosis Comments CONSENT/REFUSAL FOR Routine 09/27/2019 10:33 AM CDT DIAGNOSIS AND TREATMENT documented in this encounter Results Not on filedocumented in this encounter
--- OUTSIDE RECORDS SUMMARY | 2019-09-29 14:37 | XMS REPORT | Summary of Care ---
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 [address] [facility] [address] [place] [address] Reason for Visit Reason Comments Fatigue SWELLING Cough Auth/Cert Status Reason Specialty Diagnoses / Referred By Referred To Procedures Contact Contact Emergency [facility] [address] [place] [address] [place] [address] Encounter Details Date Type Department Care Team Description 09/27/2019 Emergency [facility]-Emergency [place], Folusho Cough with fever ( Primary Dx); 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 0 Active LISINOPRIL ORAL Take by mouth. 0 Active HYDROCHLOROTHIAZIDE ORAL Take by mouth. 0 Active LEVETIRACETAM (KEPPRA Take by mouth. 0 Active ORAL) INSULIN NPH HUM/REG inject 10 Units 0 Active INSULIN HM (INSULIN 70/30 under the skin SC) 2 (two) times daily. promethazine-codeine Take 5 mL by 60 mL 0 06/09/2019 Active 6.25-10 mg/5 mL mouth 4 (four) syrupIndications: Acute times daily as maxillary sinusitis, needed for recurrence not specified Cough. sod lbfyq-cnvozc-whwcoc Use 1 Bottle in 1 Each 0 06/09/2019 Active bottle (NEILMED SINUS each nostril 2 RINSE COMPLETE) (two) times pkdvIndications: Acute daily. Use in maxillary sinusitis, hot shower 1 recurrence not specified hour before bedtime benzonatate 100 mg Take 1 capsule 21 capsule 0 09/27/2019 Active capsuleIndications: Cough by mouth 3 with fever, URI, acute (three) times daily as needed for Cough. albuterol 90 Inhale 2 Puffs 8.5 g 0 09/27/2019 Active mcg/actuation every 4 (four) inhalerIndications: Cough hours as needed with fever, URI, acute for Wheezing or Shortness of Breath. documented as of this encounter (statuses as [...] Sign Reading Time Taken Comments Blood Pressure 109/70 09/27/2019 12:00 PM CDT Pulse 64 09/27/2019 12:00 PM CDT Temperature 36.8 C (98.2 F) 09/27/2019 10:58 AM CDT Respiratory Rate 16 09/27/2019 12:56 PM CDT Oxygen Saturation 97% 09/27/2019 12:56 PM CDT Inhaled Oxygen Concentration - - Weight 98.4 kg (217 lb) 09/27/2019 10:58 AM CDT Height 165.1 cm (5' 5") 09/27/2019 10:58 AM CDT Body Mass Index 36.11 09/27/2019 10:58 AM CDT documented in this encounter Discharge Instructions Charity Stephenson FNP - 09/27/2019 You were seen today for Chief Complaint Patient presents with Fatigue SWELLING Cough Your ER diagnosis was ICD-10-CM ICD-9-CM 1. Cough with fever R05 786.2 R50.9 780.60 2. URI, acute J06.9 465.9 NO LIFE-THREATENING FINDINGS ON TODAY'S EXAM. YOUR PRESCRIPTIONS : Medication List ASK your doctor about these medications GABAPENTIN ORAL HYDROCHLOROTHIAZIDE ORAL INSULIN 70/30 SC KEPPRA ORAL LISINOPRIL ORAL promethazine-codeine 6.25-10 mg/5 mL syrup Commonly known as: PHENERGAN with CODEINE Take 5 mL by mouth 4 (four) times daily as needed for Cough. sod qgsqj-rdotjh-rlvjyl bottle Pkdv Commonly known as: NEILMED SINUS RINSE COMPLETE Use 1 Bottle in each nostril 2 (two) times daily. Use in hot shower 1 hour before bedtime ER precautions and follow up : 1. Return to ER if your symptoms should worsen or fail to improve within 72 hours. 2. The care provided in the emergency room was for acute problems only. 3. You should follow up with your primary care provider within 72 hours. 4. Fill and take all your medications as prescribed. 5. Make sure you are staying adequately hydrated. Busque attencion immediatamente si usted tiene los sitomas sigue, vuelve peor o si hay sitomas nuevas o para cualquiera preoccupacion incluyendo dolor del pecho , falta aire, se siente debile, mas fievre, mas dolor, nausea, vomitando, sangrando que no es normal, confusion, baja or pierdas conciencia. FOLLOW-UP RECOMMENDATIONS: RECOMMEND FOLLOW-UP WITH A PRIMARY CARE PROVIDER OR SPECIALIST IN 2-5 DAYS, ESPECIALLY IF NO IMPROVEMENT IN SYMPTOMS. MAY FOLLOW-UP WITH A PROVIDER OF YOUR CHOICE, SUCH : 1. A PHYSICIAN OF YOUR CHOICE 2. [facility], . LOCATIONS IN [facility] 3. [facility], [address], [place]; OR, IF YOU WISH TO FOLLOW-UP WITHIN THE [facility], MAY TRY THESE OPTIONS (CLINIC APPOINTMENTS AVAILABLE ON LQXC-VX-COWS BASIS): 1. SCHEDULE AN APPOINTMENT ONLINE AT WWW.[facility] 2. OR CALL THE [facility] ACCESS CENTER AT OR 3. OR CALL YOUR [facility] PHYSICIAN'S OFFICE DIRECTLY IF YOU ARE ALREADY AN ESTABLISHED [facility] PATIENT. AttachmentsThe following attachments cannot be sent through Care Everywhere.URI , Viral, No Abx (Adult) (Zimbabwean)Cough, Chronic, Uncertain Cause (Adult) ( Zimbabwean)documented in this encounter Plan of Treatment Name Type Priority Associated Diagnoses Date/Time Urine Culture LAB STAT Cough with fever 09/27/2019 1:38 PM CDT Name Type Priority Associated Diagnoses Order Schedule Urine Culture LAB LULU Cough with fever LULU for 1 Occurrences starting 09/27/2019 until 09/27/2019 Health Maintenance Due Date Last Done Comments DTaP,Tdap,and Td Vaccines (1 - 1985 03/22/2017 Tdap) PAP SMEAR 10/08/2013 10/08/2010 Breast Cancer Screening 2014 (MAMMOGRAM) INFLUENZA VACCINE (#1) 2019 PNEUMOCOCCAL 0-64 YEARS COMBINED Aged Out No longer eligible based on SERIES patient's age to complete this topic documented as of this encounter Procedures Procedure Name Priority Date/Time Associated Comments Diagnosis ADC,CLC OR LCC ONLY - STAT 09/27/2019 2:10 Cough with fever Results for this INFLUENZA A & B PM CDT procedure are in DIRECT ANTIGEN the results section. URINALYSIS STAT 09/27/2019 1:38 Cough with fever Results for this PM CDT procedure are in the results section. CBC WITH DIFFERENTIAL STAT 09/27/2019 1:35 Cough with fever Results for this PM CDT procedure are in the results section. CBC WITH DIFFERENTIAL Routine 09/27/2019 1:35 Cough with fever Results for this PM CDT procedure are in the results section. COMP. METABOLIC PANEL STAT 09/27/2019 1:35 Cough with fever Results for this (62896) PM CDT procedure are in the results section. XR CHEST 2 VW STAT 09/27/2019 1:04 Cough with fever Results for this PM CDT procedure are in the results section. EKG-12 LEAD STAT 09/27/2019 12:25 PM CDT NOTICE OF PRIVACY Routine 09/27/2019 10:34 PRACTICES AM CDT documented in this encounter Results ADC,CLC OR LCC ONLY - INFLUENZA A & B DIRECT ANTIGEN (09/27/2019 2:10 PM CDT) Influenza A Negative Negative [facility] Influenza B Negative Negative [facility] Specimen Swab - NARE, LEFT SIDE Performing Organization Address City/[facility] Phone Number [facility] CLIA: [id number], [address] [place], [place] [address] [phone] Urinalysis (09/27/2019 1:38 PM CDT) APPEARANCE Hazy (A) Clear [facility] COLOR Yellow Yellow [facility] PH 5.0 4.8 - 8.0 [facility] SP GRAVITY 1.029 1.003 - 1.030 [facility] GLU U QUAL Normal Normal [facility] BLOOD Negative Negative [facility] KETONES 5 mg/dL (A) Negative [facility] PROTEIN Negative Negative [facility] UROBILIN 2.0 mg/dL (A) Normal [facility] BILIRUBIN Negative Negative [facility] NITRITE Negative Negative [facility] LEUK GELY Negative Negative [facility] RBC/HPF 2 0 - 3 HPF [facility] WBC/HPF 1 0 - 5 HPF [facility] BACTERIA Negative Negative [facility] MUCOUS Marked (A) Negative LPF [facility] SQ EPITH 2 HPF [facility] Specimen Urine - URINE, CLEAN CATCH Performing Organization Address City/State/Zipcode Phone Number [facility] CLIA: [id number], [address] [place], [place] [address] [phone] CBC WITH DIFFERENTIAL (09/27/2019 1:35 PM CDT) WBC 4.63 4.30 - 11.10 [facility] 10*3/L HOS[facility] RBC 4.42 3.93 - 5.25 [facility] 10*6/L [facility] HGB 13.3 11.6 - 15.0 g/dL [facility] HCT 40.4 35.7 - 45.2 % [facility] MCV 91.4 80.6 - 95.5 fL [facility] MCH 30.1 25.9 - 32.8 pg [facility] MCHC 32.9 31.6 - 35.1 g/dL [facility] RDW-SD 43.2 39.0 - 49.9 fL [facility] RDW-CV 12.8 12.0 - 15.5 % [facility] PLT 257 166 - 358 [facility] 10*3/L [facility] MPV 9.5 9.5 - 12.9 fL [facility] NRBC/100 WBC 0.0 0.0 - 10.0 /100 [facility] WBCs [facility] NRBC x10^3 <0.01 10*3/L [facility] GRAN MAT (NEUT) % 45.8 % [facility] IMM GRAN % 0.20 % [facility] LYMPH % 41.3 % [facility] MONO % 9.1 % [facility] EOS % 3.0 % [facility] BASO % 0.6 % [facility] GRAN MAT x10^3(ANC) 2.12 1.88 - 7.09 [facility] 10*3/uL [facility] IMM GRAN x10^3 <0.03 0.00 - 0.06 [facility] 10*3/uL [facility] LYMPH x10^3 1.91 1.32 - 3.29 [facility] 10*3/uL [facility] MONO x10^3 0.42 0.33 - 0.92 [facility] 10*3/uL [facility] EOS x10^3 0.14 0.03 - 0.39 [facility] 10*3/uL [facility] BASO x10^3 0.03 0.01 - 0.07 [facility] 10*3/uL [facility] Specimen Blood - VENOUS Performing Organization Address City/State/Zipcode Phone Number [facility] CLIA: [id number], [address] [place], [place] [id number] [address] COMP. METABOLIC PANEL ([id number]) (09/27/2019 1:35 PM CDT) NA 142 135 - 145 [facility] mmol/L [facility] K 3.6 3.5 - 5.0 [facility] mmol/L [facility] CL 104 98 - 108 mmol/L [facility] CO2 TOTAL 26 23 - 31 mmol/L [facility] AGAP 12 2 - 16 [facility] BUN 13 7 - 23 mg/dL [facility] GLUCOSE 121 (H) 70 - 110 mg/dL [facility] CREATININE 0.63 0.50 - 1.04 [facility] mg/dL [facility] TOTAL BILI 0.4 0.1 - 1.1 mg/dL [facility] CALCIUM 9.2 8.6 - 10.6 [facility] mg/dL [facility] T PROTEIN 7.8 6.3 - 8.2 g/dL [facility] ALBUMIN 4.7 3.5 - 5.0 g/dL [facility] ALK PHOS 99 34 - 122 U/L [facility] ALTv 28 5 - 35 U/L [facility] AST(SGOT) 35 13 - 40 U/L [facility] eGFR Calculation 102.2 mL/min/1.73m2 [facility] (Non-[facility]AT[facility] Venezuelan) eGFR Calculation 123.9 mL/min/1.73m2 [facility] () [facility] Specimen Blood - VENOUS Narrative Performed At Association of Glomerular Filtration Rate (GFR) [facility] and Staging of Kidney Disease* + + +- + | GFR (mL/min/1.73 m2) | With Kidney Damage | Without Kidney Damage + + +- + | >90 | Stage one | Normal + + +- + | 60-89 | Stage two | Decreased GFR + + +- + | 30-59 | Stage three | Stage three + + +- + | 15-29 | Stage four | Stage four + + +- + | <15 (or dialysis) | Stage five | Stage five + + +- + *Each stage assumes the associated GFR level has been in effect for at least three months. Stages 1 to 5, with or without kidney disease, indicate chronic kidney disease. Notes: Determination of stages one and two (with eGFR >59mL/min/1.73 m2) requires estimation of kidney damage for at least three months as defined by structural or functional abnormalities of the kidney, manifested by either: Pathological abnormalities or Markers of kidney damage (including abnormalities in the composition of the blood or urine or abnormalities in imaging tests). Performing Organization Address City/State/Zipcode Phone Number [facility] CLIA: [id number], [address] [place] [address] Chest 2 Views (09/27/2019 1:04 PM CDT) Specimen Narrative Performed At HISTORY: Cough with fever. PACS/VR/DOSE TECHNIQUE: PA and lateral views of the chest are obtained. Comparison made with 04/07/2015 study. FINDINGS: No acute pneumonia detected. No pneumothorax or pleural effusion or pulmonary congestion. Cardiothoracic ratio of approximately 11.5/30 cm is consistent with normal cardiac size. CONCLUSIONS: No signs of acute cardiopulmonary disease. Procedure Note [facility], Radiant Results Inft User - 09/27/2019 1:11 PM CDT HISTORY: Cough with fever. TECHNIQUE: PA and lateral views of the chest are obtained. Comparison made with 04/07/2015 study. FINDINGS: No acute pneumonia detected. No pneumothorax or pleural effusion or pulmonary congestion. Cardiothoracic ratio of approximately 11.5/30 cm is consistent with normal cardiac size. CONCLUSIONS: No signs of acute cardiopulmonary disease. Performing Organization Address City/State/[facility] Phone Number PACS/VR/DOSE documented in this encounter Visit Diagnoses Diagnosis Cough with fever - Primary URI, acute Acute upper respiratory infections of unspecified site documented in this encounter Administered Medications Medication Order MAR Action Action Date Dose Rate Site dexamethasone (DECADRON PHOSPHATE) Given 09/27/2019 3:29 PM CDT 10 mg injection 10 mg 10 mg, Oral, ONCE, 1 dose, 09/27/19 at 1515, Routine ipratropium-albuterol (DUONEB) 0.5 mg-3 mg(2.5 Given 09/27/2019 12:32 PM CDT 6 mL mg base)/3 mL nebulizer solution 6 mL 6 mL, Inhalation, ONCE, 1 dose, Thu09/27/19 at 1330, Routine documented in this encounter
--- OUTSIDE RECORDS SUMMARY | 2019-09-29 14:37 | XMS REPORT ---
[...] Status Dosage System Date Date Gabapentin ND 79216252824 600 MG Orally Active 1 capsule Three times a day Bentyl ND 94480947580 20 MG Orally November 21, Active 1 tablet Four times a day 2018 HumuLIN 70/30 [facility] [id number] (70-30) 100 Jul 26, Active 10 units KwikPen UNIT/ML 2016 Subcutaneous bid Tramadol HCl ND 71431455663 50 MG Orally Active 1 tablet every 6 hrs as needed Albuterol ND 37760887961 (2.5 MG/3ML) December 23, Active 3 ml as Sulfate 0.083% 2018 needed Inhalation every 8 hrs PRN wheezing Keppra [facility] 30890700305 500 MG Orally Active take two Twice a day -2 tablet(s) by mouth twice a day. Lisinopril ND 31589176850 10 MG Orally Sep 09, Active 1 tablet Once a day 2018 ProAir HFA [facility] 56216207153 108 (90 Base) Jul 26, Active 2 puffs as MCG/ACT 2018 needed Inhalation every 6 hrs Flonase [facility] 85150338656 50 MCG/ACT Jul 26, Active 2 spray in Nasally Once a 2018 each day nostril Zestoretic [facility] 66128249522 20-25 MG Orally Jul 26, Active 1 tablet Once a day 2016 Results No Known Results Summary Purpose eClinicalWorks Submission
--- NOTE | 2019-09-29 15:07 | ER ---
Nurse's Notes [facility] Name: Britt Bower Age: 44 yrs Sex: Female : 1975 Arrival Date: 09/29/2019 Time: 14:39 Bed 10 Private MD: Diagnosis: Acute upper respiratory infection, unspecified Presentation: 09/28 14:59 Chief complaint: Patient states: CONGESTION, SUBJECTIVE FEVER. SEEN AT [place] THURSDAY. ls4 STATES SHE IS NOT BETTER YET AND CAME HERE. Coronavirus screen: The patient has NOT traveled to a country currently being monitored by the [facility] within the last 14 days. Proceed with normal triage procedures. Ebola Screen: No symptoms or risks identified at this time. Initial Sepsis Screen: Does the patient meet any 2 criteria? No. Patient's initial sepsis screen is negative. Does the patient have a suspected source of infection? No. Patient's initial sepsis screen is negative. Risk Assessment: Do you want to hurt yourself or someone else? Patient reports no desire to harm self or others. 14:59 Method Of Arrival: Ambulatory ls4 14:59 Acuity: [facility] 4 ls4 14:59 Resp Distress? No respiratory distress is noted at this time. ls4 Triage Assessment: 14:50 General: Appears in no apparent distress. comfortable, Behavior is calm, cooperative. ls4 14:50 Pain: Denies pain. Cardiovascular: Capillary refill < 3 seconds Clubbing of nail beds ls4 is absent Patient's skin is warm and dry. Respiratory: Respiratory effort is even, unlabored, Breath sounds are clear bilaterally. the patient has mild shortness of breath. GI: No signs and/or symptoms were reported involving the gastrointestinal system. : No signs and/or symptoms were reported regarding the genitourinary system. Derm: No signs and/or symptoms reported regarding the dermatologic system. Musculoskeletal: No signs and/or symptoms reported regarding the musculoskeletal system. DIRECTOR OF CLINICAL EDUCATION: 14:50 LMP N/A - Hysterectomy ls4 Historical: - Allergies: 23:47 Amoxicillin; ls4 23:47 Aspirin; ls4 23:47 Coconut; ls4 23:47 diazepam; ls4 23:47 Iodine; ls4 23:47 Morphine; ls4 23:47 Ondansetron HCl; ls4 23:47 PENICILLINS; ls4 23:47 Piperacillin Sodium; ls4 23:47 shrimp; ls4 23:47 tazobactam sodium; ls4 23:47 Zofran; ls4 - Immunization history:: Adult Immunizations up to date. - Social history:: Smoking status: Patient denies any tobacco usage or history of. Screenin:59 Abuse screen: Denies threats or abuse. Denies injuries from another. ls4 14:59 Nutritional screening: No deficits noted. Tuberculosis screening: No symptoms or risk ls4 factors identified. Fall Risk None identified. Assessment: 14:50 Cardiovascular: Capillary refill < 3 seconds Patient's skin is warm and dry. ls4 14:50 Respiratory: Respiratory effort is even, unlabored, Respiratory pattern is regular. ls4 Vital Signs: 14:59 BP 111 / 60; Pulse 66; Resp 14; Temp 98.(O); Pulse Ox 100% ; Weight 99.79 kg; Height 5 ls4 ft. 0 in. (152.40 cm); Pain 5/10; 14:59 Body Mass Index 42.97 (99.79 kg, 152.40 cm) ls4 ED Course: 14:39 Patient arrived in ED. ag5 14:50 Arm band placed on. ls4 14:58 Eryn Zhou FNP-C [facility] snw 14:58 Adam Peterson MD is Attending Physician. snw 14:59 La Harvey, MERRICK is Primary Nurse. ls4 14:59 Patient has correct armband on for positive identification. Bed in low position. Call ls4 light in reach. Side rails up X 1. 14:59 No provider procedures requiring assistance completed. Patient did not have IV access ls4 during this emergency room visit. 15:01 Triage completed. ls4 Administered Medications: No medications were administered Outcome: 15:05 Discharge ordered by . snw 15:24 Patient left the ED. ls4 15:24 Condition: stable ls4 15:24 Discharged to home ambulatory, with family. ls4 15:24 Discharge instructions given to patient, family. Signatures: Eryn Zhou FNP-C [employer] La Harvey, RN RN ls4 BrettMaxine ag5
--- NOTE | 2019-09-29 15:07 | EDPHYS ---
Physician Documentation [facility] Name: Britt Bower Age: 44 yrs Sex: Female : 1975 Arrival Date: 09/29/2019 Time: 14:39 Bed 10 Private MD: ED Physician Adam Peterson HPI: 09/28 15:10 This 44 yrs old Female presents to ER via Ambulatory with complaints of snw Fever, Congestion, Chest Pain. 15:10 The patient reports fever, that was measured at 102 degrees Fahrenheit. Onset: The snw symptoms/episode began/occurred gradually, and became persistent. Severity of symptoms: At their worst the symptoms were moderate. The patient has experienced similar episodes in the past. The patient has been recently seen by a physician: [facility] ED. 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 - Social history:: Smoking status: Patient denies any tobacco usage or history of. ROS: 15:08 Constitutional: Positive for fever, fatigue, negative for chills and weight loss, Eyes: snw Negative for injury, pain, redness, and discharge, ENT: Negative for injury, pain, and discharge, Neck: Negative for injury, pain, and swelling, Cardiovascular: Negative for chest pain, palpitations, and edema, Abdomen/GI: Negative for abdominal pain, nausea, vomiting, diarrhea, and constipation, Back: Negative for injury and pain, : Negative for injury, bleeding, discharge, and swelling, MS/Extremity: Negative for injury and deformity, Skin: Negative for injury, rash, and discoloration, Neuro: Negative for headache, weakness, numbness, tingling, and seizure, Psych: Negative for depression, anxiety, suicide ideation, homicidal ideation, and hallucinations. 15:08 Respiratory: Positive for cough. Exam: 15:08 Constitutional: This is a well developed, well nourished patient who is awake, alert, snw and in no acute distress. Head/Face: Normocephalic, atraumatic. Eyes: Pupils equal round and reactive to light, extra-ocular motions intact. Lids and lashes normal. Conjunctiva and sclera are non-icteric and not injected. Cornea within normal limits. Periorbital areas with no swelling, redness, or edema. ENT: Nares patent. No nasal discharge, no septal abnormalities noted. Tympanic membranes are normal and external auditory canals are clear. Oropharynx with no redness, swelling, or masses, exudates, or evidence of obstruction, uvula midline. Mucous membranes moist. Neck: Trachea midline, no thyromegaly or masses palpated, and no cervical lymphadenopathy. Supple, full range of motion without nuchal rigidity, or vertebral point tenderness. No Meningismus. Chest/axilla: Normal chest wall appearance and motion. Nontender with no deformity. No lesions are appreciated. Cardiovascular: Regular rate and rhythm with a normal S1 and S2. No gallops, murmurs, or rubs. Normal PMI, no JVD. No pulse deficits. Respiratory: Lungs have equal breath sounds bilaterally, clear to auscultation and percussion. No rales, rhonchi or wheezes noted. No increased work of breathing, no retractions or nasal flaring. Abdomen/GI: Soft, non-tender, with normal bowel sounds. No distension or tympany. No guarding or rebound. No evidence of tenderness throughout. Back: No spinal tenderness. No costovertebral tenderness. Full range of motion. Skin: Warm, dry with normal turgor. Normal color with no rashes, no lesions, and no evidence of cellulitis. MS/ Extremity: Pulses equal, no cyanosis. Neurovascular intact. Full, normal range of motion. Neuro: Awake and alert, GCS 15, oriented to person, place, time, and situation. Cranial nerves II-XII grossly intact. Motor strength 5/5 in all extremities. Sensory grossly intact. Cerebellar exam normal. Normal gait. Psych: Awake, alert, with orientation to person, place and time. Behavior, mood, and affect are within normal limits. Vital Signs: 14:59 BP 111 / 60; Pulse 66; Resp 14; Temp 98.(O); Pulse Ox 100% ; Weight 99.79 kg; Height 5 ls4 ft. 0 in. (152.40 cm); Pain 5/10; 14:59 Body Mass Index 42.97 (99.79 kg, 152.40 cm) ls4 MDM: 15:00 Patient medically screened. snw 15:07 Data reviewed: vital signs, nurses notes. Data interpreted: Pulse oximetry: on room air snw is 100 %. Interpretation: normal. Counseling: I had a detailed discussion with the patient and/or guardian regarding: the historical points, exam findings, and any diagnostic results supporting the discharge/admit diagnosis, the need for outpatient follow up, to return to the emergency department if symptoms worsen or persist or if there are any questions or concerns that arise at home. Special discussion: Based on the history and exam findings, there is no indication for further emergent testing or inpatient evaluation. I discussed with the patient/guardian the need to see the primary care provider for further evaluation of the symptoms. Administered Medications: No medications were administered Disposition: 17:19 Co-signature as Attending Physician, Adam Peterson MD I agree with the assessment and kdr plan of care. Disposition: 09/29/19 15:05 Discharged to Home. Impression: Acute upper respiratory infection, unspecified. - Condition is Stable. - Discharge Instructions: Upper Respiratory Infection, Adult, Cool Mist Vaporizer, Rehydration, Adult. - Work release form, Medication Reconciliation Form, Thank You Letter, Antibiotic Education, Prescription Opioid Use form. - Follow up: Emergency Department; When: As needed; Reason: Worsening of condition. Follow up: Private Physician; When: 1 - 2 days; Reason: Recheck today's complaints, Continuance of care, Re-evaluation by your physician. Signatures: Adam Peterson MD MD kdr Therrien, Shelly, [employer]ER-C [employer]ATION TRUCK CLE[employer]ER-Csnw La Harvey RN RN ls4 Corrections: (The following items were deleted from the chart) 15:24 15:05 09/29/2019 15:05 Discharged to Home. Impression: Acute upper respiratory ls4 infection, unspecified. Condition is Stable. Forms are Medication Reconciliation Form, Thank You Letter, Antibiotic Education, Prescription Opioid Use. Follow up: Emergency Department; When: As needed; Reason: Worsening of condition. Follow up: Private Physician; When: 1 - 2 days; Reason: Recheck today's complaints, Continuance of care, Re-evaluation by your physician. snw
== END 2019-09-29 15:24 | disposition home or self-care (01) ==
LOC: ER 14:34
DX: J06.9 Acute upper respiratory infection, unspecified (principal); R05 Cough; Z88.0 Allergy status to penicillin; Z88.1 Allergy status to other antibiotic agents; Z88.5 Allergy status to narcotic agent; Z88.6 Allergy status to analgesic agent; Z88.8 Allergy status to other drugs, medicaments and biological substances; Z91.013 Allergy to seafood; Z91.018 Allergy to other foods
CPT/HCPCS: 99281

== ENCOUNTER 2019-12-18 20:29 | Emergency (ER) | payer SELFPAY ==
--- OUTSIDE RECORDS SUMMARY | 2019-12-18 20:31 | XMS REPORT | Clinical Summary ---
:1975 Author Organization [facility] Address [address] [place] [address] Care Team Providers Name Role Phone Akua Hunt [employer] BU[employer]DER Primary Care Provider Allergies Active Allergy Reactions [...] HOURS. lisinopril TAKE ONE (1) 1 09/23/2018 Activ e (PRINIVIL,ZESTRIL) 10 MG TABLET(S) BY tablet MOUTH ONCE A DAY. lisinopril-hydroCHLOROth Take 1 tablet by 0 Active iazide mouth daily. (PRINZIDE,ZESTORETIC) 20-25 mg per tablet Active Problems Not on file Social History Tobacco Use Types Packs/Day Years [...] six or more drinks on one occasion? No t asked Sex Assigned at Date Recorded Not on file Job Start Date Occupation Industry Not on file Not on file Not on file Travel History Travel Start Travel End No recent travel history available. Last Filed Vital Signs Not on file Plan of Treatment Not on file Results Not on fileafter 12/17/2018
--- OUTSIDE RECORDS SUMMARY | 2019-12-18 20:32 | XMS REPORT ---
:1975 Author Organization [facility] t Address [address] [place] [address] Care Team Providers Name Role Phone Adriánernesto RICHMOND F Attending Clinician Doctor Unassigned, Name Attending Clinician Unavailable Nazanin KELSEY S Attending Clinician IGOR SANCHEZ Attending Clinician Unavailable Problems Condition Condition Condition Status Onset Resolution Last Treating Co mments Source Name Details Category Date Date Treatment Clinician Date Epilepsy Epilepsy Diagnosis Active [facility] Secondary Secondary Diagnosis Active [facility] diabetes diabetes [facility] with with [facility] peripheral peripheral l neuropathy neuropathy [facility]i ent Clinics Diabetes Diabetes Diagnosis Active [facility] type 2, type 2, [facility] - controlled controlled Me [facility] l [facility] Mixed Mixed Problem Active [facility] hyperlipid hyperlipid Paula kes - emia emia [facility] Morbid Morbid Problem Active [facility] obesity obesity [facility] Ulcerative Ulcerative Problem Active [facility] colitis colitis [facility] Essential Essential Problem Active [facility] hypertensi hypertensi Paula kes - on on [facility] Encounter Encounter Problem Active [facility] for for [facility] - disability disability Me moria examinatio examinatio l n n Outpati ent Clinics Mild Mild Problem Active [facility] intermitte intermitte Paula kes - nt asthma nt asthma Forrest hemant without without l complicati complicati Ou tpati on on ent Clinics Muscle Muscle Problem Active [facility] weakness weakness [facility] - (generaliz (generaliz Me moria ed) ed) [facility] Allergies, Adverse Reactions, Alerts Allergy Allergy Status Severity Reaction(s) Onset Inactive Treating Comm ents Source Name Type Date Date Clinician penicill Adverse Active anaphylaxis [facility] Reaction [facility] Iodine Adverse Active anaphylaxis [facility] Aspirin Adverse Active anaphylaxis [facility] Zofran Adverse Active anaphylaxis [facility] Diazepam Adverse Active anaphylaxis [facility] Reaction [facility] Medications Ordered Filled Start Stop Current Ordering Indication Dosage Frequency Signature Comments Components Source Medication Medication Date Date Medication? Clinician (SIG) Name Name Albuterol Albuterol Yes [place] [address] [facility] Sulfate Sulfate 6-06 [facility] needed [facility] - 00:00: [facility] Lisinopril Lisinopril Yes [place] [address] [facility] 2-21 [facility] - 00:[facility]: [facility] Bentyl Bentyl Yes [place] [address] [facility] 5-05 [facility] - 00[facility]: [facility] Gabapentin Gabapentin Yes [place] [address] [facility] 1-07 [facility] - 00:[facility]: [facility] Flonase Flonase Yes [place] [address] [facility] 1-07 [place] each [facility] - 00:00: nostril [facility] 00 l [facility] ProAir HFA ProAir HFA Yes [place] [address] [facility] 1-07 [facility] needed [facility] - 00:00: [facility] 00 [facility] HumuLIN HumuLIN Yes [place] [address] 70/30 70/30 1-07 [facility] [facility] - KwikPen KwikPen 00:00: [facility]oria 00 l [facility] Zestoretic Zestoretic Yes [place] [address] 1[facility]07 [facility] [facility] - 00:00: [facility] 00 [facility] Keppra Keppra Yes [place] take two [facility] -2 [facility] - tablet(s) Memoria by mouth l twice a Outpati day. ent Clinics Tramadol Tramadol Yes [place] [address] HCl HCl [facility] as needed [facility] Procedures This patient has no known procedures. Encounters Start End Encounter Admission Attending Care Care Encounter Source Date/Time Date/Time Type Type Clinicians Facility Department ID 2019-09-27 2019-09-27 Emergency Carlie, [facility] [id number] 11:40:39 18:09:00 Charity Varma [id number] [place] [id number] [place] [id number] 2019-09-27 2019-09-27 Orders Doctor DUSTIN [id number] 00:00:00 00:00:00 Only UnassignedHARMAN [id number] [id number] [id number] 2019-08-24 2019-08-24 [facility] [id number] [address] 10:44:00 10:44:00 [facility] ent [facility] 2019-08-13 2019-08-13 Emergency Back, [facility] [id number] 11:49:00 12:46:00 Ramya Varma [id number] [place] [id number] [place] [id number] 2019-08-13 2019-08-13 Orders Doctor CHAN [id number] 00:00:00 00:00:00 Only UnassignedHARMAN [id number] [id number] [id number] 2019-08-11 2019-08-11 [facility] [id number] 14:00:00 14:00:00 [facility] ent [facility] 2019-08-04 2019-08-04 [facility] [id number] 10:42:00 10:42:00 [facility] ent [facility] 2019-04-14 2019-04-14 [facility] [id number] 14:40:00 14:40:00 t [facility] [address] [facility] Medicine l Medicine Outpati ent Clinics 2019-04-11 2019-04-11 [facility] [id number] 11:12:00 11:12:[address] [facility] [address] [facility] Medicine l Medicine Outpati ent Clinics 2019-03-03 2019-03-03 [facility] [id number] 16:39:00 16:39:[address] [facility] [address] [facility] Medicine l Medicine Outpati ent Clinics 2019-02-03 2019-02-03 [facility] [id number] 11:00:00 11:00:00 t [facility] l Medicine Outpati ent Clinics 2018-09-17 2018-09-17 [facility] [id number] 12:26:00 12:26:00 t [facility] Medicine Medicine Outpati ent Clinics 2018-09-09 2018-09-09 [facility] [id number] 13:30:00 13:30:00 t [facility] Medicine Outpati ent Clinics 2018-04-23 2018-04-23 [facility] [id number] 10:00:00 10:00:00 t [facility] Medicine Medicine Outpati ent Clinics 2018-04-22 2018-04-22 [facility] [id number] 14:14:00 14:14:00 t [facility] Medicine Medicine Outpati ent Clinics 2018-04-20 2018-04-20 [facility] [id number] 10:02:00 10:02:00 t [facility] Medicine Outpati ent Clinics 2018-04-19 2018-04-19 [facility] [id number] 16:33:00 16:33:[address] [facility] ent [facility] 2018-04-16 2018-04-16 Outpatient Lore Torrezt [id number] 09:30:00 09:30:00 t [facility] 2018-02-19 2018-02-19 Outpatient Lore Jenkinsmattt [id number] 10:45:00 10:45:00 t [facility] ent [facility] 2017-12-07 2017-12-07 [facility] [id number] 08:36:00 08:36:00 t [facility] 2017-11-13 2017-11-13 Outpatient Lore Jenkinsmattt [id number] 10:30:00 10:30:00 t [facility] Results Test Description Test Time Test Comments Results Result Comments Source SCREEN, URINE 2018-10-15 15:27:00 Test Item Value Reference Range Interpretation Comme nts TEST URINE (BEAKER) (test code = 583) Negative URINALYSIS WITH MICROSCOPIC IF [id number] 14:55:00 Test Item Value Reference Range Interpretation Comments COLOR (BEAKER) (test code = 470) Colorless CLARITY (BEAKER) (test code = 469) Clear SPECIFIC GRAVITY UA (BEAKER) (test 1.003 1.001-1.035 code = 468) PH UA (BEAKER) (test code = 467) 5.5 5.0-8.0 PROTEIN UA (BEAKER) (test code = Negative Negative 464) GLUCOSE UA (BEAKER) (test code = Negative Negative 365) KETONES UA (BEAKER) (test code = Negative Negative 371) BILIRUBIN UA (BEAKER) (test code = Negative Negative 462) BLOOD UA (BEAKER) (test code = 461) Negative Negative NITRITE UA (BEAKER) (test code = Negative Negative 465) LEUKOCYTE ESTERASE UA (BEAKER) Negative Negative (test code = 466) UROBILINOGEN UA (BEAKER) (test code 0.2 mg/dL 0.2-1.0 = 463) SOURCE(BEAKER) (test code = 2795) RAD, CHEST, 1 VIEW, NON [id number] 13:46:00Reason for exam:->chest painIs the patient ?->UnknownShould this be [facility] at [facility]?->YesFINAL REPORT Chest, AP view. History: Chest pain. Comparison: None available. Discussion: The cardiomediastinal silhouette and pulmonary vasculature are within normal limits. The lungs are clear without evidence of consolidation or effusion. There are no acute osseous abnormalities. The soft tissues are unremarkable. IMPRESSION: No acute cardiopulmonary abnormality. Signed: Kirstie Ozuna MDReport Verified Date/Time: 10/15/2018 13:46:07 Reading Location: [facility] B-TYPE NATRIURETIC FACTOR (BNP)2018-10-15 13:45:00 Test Item Value Reference Range Interpretation Comments B-TYPE NATRIURETIC PEPTIDE (BEAKER) < pg/mL 0-100 (test code = 700) TROPONIN [id number] 13:42:00 Test Item Value Reference Range Interpretation Comments TROPONIN I (AKER) (test code = 397) < ng/mL 0.00-0.03 Troponin I (TnI) levels [...] failure, acidosis, acute neurological disease, and persistent tachyarrhythmia.[id number] 13:36:00 Test Item Value Reference Range Interpretation Comments MAGNESIUM (BEAKER) (test code = 1.9 mg/dL 1.6-2.6 627) COMPREHENSIVE METABOLIC [id number] 13:36:00 Test Item Value Reference Range Interpretation Comments TOTAL PROTEIN 7.7 gm/dL 6.0-8.3 (BEAKER) (test code = 770) ALBUMIN (BEAKER) 4.3 g/dL 3.5-5.0 (test code = 1145) ALKALINE PHOSPHATASE 78 U/L 40-150 (BEAKER) (test code = 346) BILIRUBIN TOTAL 0.2 mg/dL 0.2-1.2 (BEAKER) (test code = 377) SODIUM (BEAKER) 140 meq/L 136-145 (test code = 381) POTASSIUM (BEAKER) 3.7 meq/L 3.5-5.1 (test code = 379) CHLORIDE (BEAKER) 105 meq/L 98-107 (test code = 382) CO2 (BEAKER) (test 23 meq/L 22-29 code = 355) BLOOD UREA NITROGEN 17 mg/dL 7-21 (BEAKER) (test code = 354) CREATININE (BEAKER) 0.78 mg/dL 0.57-1.25 (test code = 358) GLUCOSE RANDOM 94 mg/dL 70-105 (BEAKER) (test code = 652) CALCIUM (BEAKER) 10.3 mg/dL 8.4-10.2 H (test code = 697) AST (SGOT) (BEAKER) 19 U/L 5-34 (test code = 353) ALT (SGPT) (BEAKER) 24 U/L 6-55 (test code = 347) EGFR (BEAKER) (test 80 mL/min/1.73 INSUFF ICIENT code = 1092) sq m CLINICAL DATA T O CALCULATE ESTIM ATED GFR. CBC W/PLT COUNT & AUTO [id number] 13:09:00 Test Item Value Reference Range Interpretation Comments WHITE BLOOD CELL COUNT (BEAKER) 6.4 K/ L 3.5-10.5 (test code = 775) RED BLOOD CELL COUNT (BEAKER) 4.76 M/ L 3.93-5.22 (test code = 761) HEMOGLOBIN (BEAKER) (test code = 14.2 GM/DL 11.2-15.7 410) HEMATOCRIT (BEAKER) (test code = 42.4 % 34.1-44.9 411) MEAN CORPUSCULAR VOLUME (BEAKER) 89.1 fL 79.4-94.8 (test code = 753) MEAN CORPUSCULAR HEMOGLOBIN 29.8 pg 25.6-32.2 (BEAKER) (test code = 751) MEAN CORPUSCULAR HEMOGLOBIN CONC 33.5 GM/DL 32.2-35.5 (BEAKER) (test code = 752) RED CELL DISTRIBUTION WIDTH 12.0 % 11.7-14.4 (BEAKER) (test code = 412) PLATELET COUNT (BEAKER) (test 305 K/CU MM 150-450 code = 756) MEAN PLATELET VOLUME (BEAKER) 9.3 fL 9.4-12.3 L (test code = 754) NUCLEATED RED BLOOD CELLS 0 /100 WBC 0-0 (BEAKER) (test code = 413) NEUTROPHILS RELATIVE PERCENT 57 % (BEAKER) (test code = 429) LYMPHOCYTES RELATIVE PERCENT 33 % (BEAKER) (test code = 430) MONOCYTES RELATIVE PERCENT 8 % (BEAKER) (test code = 431) EOSINOPHILS RELATIVE PERCENT 2 % (BEAKER) (test code = 432) BASOPHILS RELATIVE PERCENT 1 % (BEAKER) (test code = 437) NEUTROPHILS ABSOLUTE COUNT 3.60 K/ L 1.56-6.13 (BEAKER) (test code = 670) LYMPHOCYTES ABSOLUTE COUNT 2.10 K/ L 1.18-3.74 (BEAKER) (test code = 414) MONOCYTES ABSOLUTE COUNT (BEAKER) 0.48 K/ L 0.24-0.36 H (test code = 415) EOSINOPHILS ABSOLUTE COUNT 0.13 K/ L 0.04-0.36 (BEAKER) (test code = 416) BASOPHILS ABSOLUTE COUNT (BEAKER) 0.04 K/ L 0.01-0.08 (test code = 417) IMMATURE GRANULOCYTES-RELATIVE 0 % 0-1 PERCENT (BEAKER) (test code = 1223)
[2019-12-18] MEDS ORDERED: DOXYCYCLINE 100 MG CAP PO ONE (22:27)
[2019-12-18] MEDS ORDERED: TETANUS & DIPHTHERIA TOX,ADULT 0.5 ML VIAL ONE (22:27)
[2019-12-18 23:20] VITALS: BP 132/79; TEMP 96.7; O2SAT 97
--- NOTE | 2019-12-19 08:29 | RAD REPORT ---
EXAM DESCRIPTION: RAD - Hand Right 3 View - 12/18/2019 10:09 pm CLINICAL HISTORY: Pain;Animal bite COMPARISON: Hand Right 3 View dated 07/05/2018 FINDINGS: No fracture is identified. There is no dislocation or periosteal reaction noted. No forei gn body or significant soft tissue abnormality. IMPRESSION: Negative right hand examination.
--- NOTE | 2019-12-19 19:26 | ER ---
Nurse's Notes [facility] Name: Britt Bower Age: 44 yrs Sex: Female : 1975 Arrival Date: 12/18/2019 Time: 20:32 Bed 18 Private MD: Diagnosis: Cellulitis of right finger-fourth Presentation: 12/17 20:37 Chief complaint: Patient states: snake bite on 4th digit of R hand yesterday. It was a ca1 garter snake. Reports pain, swelling on the affected site. Coronavirus screen: Proceed with normal triage. Patient denies a cough. Patient denies shortness of breath or difficulty breathing. Patient denies measured and/or subjective temperature greater than 100.4F prior to today's visit. Patient denies travel on a cruise ship or to a country the [facility] currently lists as an affected area. Patient denies contact with known and/or suspected case of COVID-19. Ebola Screen: Patient negative for fever greater than or equal to 101.5 degrees Fahrenheit, and additional compatible Ebola Virus Disease symptoms Patient denies exposure to infectious person. Patient denies travel to an Ebola-affected area in the 21 days before illness onset. No symptoms or risks identified at this time. Initial Sepsis Screen: Does the patient meet any 2 criteria? No. Patient's initial sepsis screen is negative. Does the patient have a suspected source of infection? No. Patient's initial sepsis screen is negative. Risk Assessment: Do you want to hurt yourself or someone else? Patient reports no desire to harm self or others. Onset of symptoms was December 18, 2019. 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 LMP N/A - Hysterectomy ca1 Historical: - Allergies: 20:43 Amoxicillin; ca1 20:43 Aspirin; ca1 20:43 Coconut; ca1 20:43 diazepam; ca1 20:43 Iodine; ca1 20:43 Morphine; ca1 20:43 Ondansetron HCl; ca1 20:43 PENICILLINS; ca1 20:43 Piperacillin Sodium; ca1 20:43 shrimp; ca1 20:43 tazobactam sodium; ca1 20:43 Zofran; ca1 - Home Meds: 20:43 lisinopril-hydrochlorothiazide 20-25 mg Oral tab once daily for Hypertension [Active]; ca1 gabapentin 600 mg Oral tab 1 tab 3 times per day for Neuropathic Pain [Active]; Humulin 70/30 100 unit/mL (70-30) Sub-Q tab for Type 2 Diabetes Mellitus [Active]; levetiracetam 500 mg Oral tab 1 tab 2 times per day for Tonic-Clonic Epilepsy Treatment Adjunct [Active]; lisinopril 10 mg Oral tab 1 tab nightly [Active]; - PMHx: 20:43 Asthma; Diabetes - IDDM; epilepsy; history of stroke; Hypertension; neuropathy; ca1 - Immunization history:: Adult Immunizations up to date, Last tetanus immunization: < 5 years ago. - Social history:: Smoking status: Patient denies any tobacco usage or history of. Vital Signs: 20:37 BP 132 / 79; Pulse 87; Resp 16 S; Temp 96.7(TE); Pulse Ox 97% on R/A; Weight 99.79 kg ca1 (R); Height 5 ft. (152.40 cm) (R); Pain 6/10; 20:37 Body Mass Index 42.97 (99.79 kg, 152.40 cm) ca1 ED Course: 20:32 Patient arrived in ED. bp1 20:41 Triage completed. ca1 20:43 Arm band placed on right wrist. ca1 21:18 Dontae Hamilton PA is PHCP. cp 21:18 Sudhir Lee MD is Attending Physician. cp 21:43 La Harvey, MERRICK is Primary Nurse. ls4 22:10 XRAY Hand RIGHT 3 View In Process Unspecified. 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 Exp: ls4 09/02/2021. Lot #: [id number]. } Route: IM; Site: left deltoid; 22:48 Follow up: Response: No adverse reaction; Marked relief of symptoms ls4 22:17 Drug: Doxycycline 100 mg Route: PO; ls4 22:50 Follow up: Response: No adverse reaction; Marked relief of symptoms ls4 Outcome: 22:19 Discharge ordered by . cp 22:51 Patient left the ED. ls4 Signatures: Dispatcher [employer] EDMS Dontae Hamilton PA PA cp Stewart, Lisa RN RN ls4 Christal Suarez RN RN ca1 Giuliana Nguyen bp1 Corrections: (The following items were deleted from the chart) 22:49 22:27 Doxycycline 100 mg PO ls4 ls4
--- NOTE | 2019-12-19 19:26 | EDPHYS ---
Physician Documentation [facility] Name: Britt Bower Age: 44 yrs Sex: Female : 1975 Arrival Date: 12/18/2019 Time: 20:32 Bed 18 Private MD: ED Physician Sudhir Lee HPI: 12/17 21:45 This 44 yrs old Female presents to ER via Ambulatory with complaints of Snake cp bite. 21:45 The patient or guardian reports swelling, tenderness, erythema. cp 21:45 The complaints affect the right fourth finger. Context: Patient reports she was digging cp in dirt and rocks yesterday when she felt what seemed like a snake bite to her right fourth finger. Patient now reports redness streaking proximally to right fourth finger. 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 LMP N/A - Hysterectomy ca1 Historical: - Allergies: 20:43 Amoxicillin; ca1 20:43 Aspirin; ca1 20:43 Coconut; ca1 20:43 diazepam; ca1 20:43 Iodine; ca1 20:43 Morphine; ca1 20:43 Ondansetron HCl; ca1 20:43 PENICILLINS; ca1 20:43 Piperacillin Sodium; ca1 20:43 shrimp; ca1 20:43 tazobactam sodium; ca1 20:43 Zofran; ca1 - Home Meds: 20:43 lisinopril-hydrochlorothiazide 20-25 mg Oral tab once daily for Hypertension [Active]; ca1 gabapentin 600 mg Oral tab 1 tab 3 times per day for Neuropathic Pain [Active]; Humulin 70/30 100 unit/mL (70-30) Sub-Q tab for Type 2 Diabetes Mellitus [Active]; levetiracetam 500 mg Oral tab 1 tab 2 times per day for Tonic-Clonic Epilepsy Treatment Adjunct [Active]; lisinopril 10 mg Oral tab 1 tab nightly [Active]; - PMHx: 20:43 Asthma; Diabetes - IDDM; epilepsy; history of stroke; Hypertension; neuropathy; ca1 - Immunization history:: Adult Immunizations up to date, Last tetanus immunization: < 5 years ago. - Social history:: Smoking status: Patient denies any tobacco usage or history of. ROS: 22:00 MS/extremity: Positive for erythema, pain, swelling, tenderness, of the right fourth cp finger, Negative for paresthesias. 22:00 Constitutional: Negative for body aches, chills, fever. cp 22:00 Respiratory: Negative for cough, shortness of breath, wheezing. 22:00 Abdomen/GI: Negative for nausea, vomiting, and diarrhea. 22:00 Neuro: Negative for altered mental status, headache, weakness. 22:00 All other systems are negative. Exam: 22:05 Skin: noted superficial open wounds bilateral right fourth finger, mild streaking cp erythema and mild swelling and tenderness noted. 22:05 Constitutional: The patient appears in no acute distress, alert, awake, non-toxic, well cp developed, well nourished. 22:05 Neuro: Motor: is normal, Sensation: is normal. Vital Signs: 20:37 BP 132 / 79; Pulse 87; Resp 16 S; Temp 96.7(TE); Pulse Ox 97% on R/A; Weight 99.79 kg ca1 (R); Height 5 ft. (152.40 cm) (R); Pain 6/10; 20:37 Body Mass Index 42.97 (99.79 kg, 152.40 cm) ca1 MDM: 21:23 Patient medically screened. cp 22:00 Differential diagnosis: dislocation, open fracture, closed fracture, cellulitis, snake cp bite. 22:18 Data reviewed: vital signs, nurses notes, radiologic studies, plain films. cp 22:18 Test interpretation: by ED physician or midlevel provider: xrays of right hand negative cp for fracture and foreign body. Counseling: I had a detailed discussion with the patient and/or guardian regarding: the historical points, exam findings, and any diagnostic results supporting the discharge/admit diagnosis, radiology results, to return to the emergency department if symptoms worsen or persist or if there are any questions or concerns that arise at home. 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 Exp: ls4 09/02/2021. Lot #: [id number]. } Route: IM; Site: left deltoid; 22:48 Follow up: Response: No adverse reaction; Marked relief of symptoms ls4 22:17 Drug: Doxycycline 100 mg Route: PO; ls4 22:50 Follow up: Response: No adverse reaction; Marked relief of symptoms ls4 Disposition: 22:25 Chart complete. cp 12/18 02:18 Co-signature as Attending Physician, Sudhir Lee MD. pkl Disposition: 12/18/19 22:19 Discharged to Home. Impression: Cellulitis of right finger - fourth. - Condition is Stable. - Discharge Instructions: Cellulitis, Adult, [id number]. - Prescriptions for Doxycycline Hyclate 100 mg Oral Tablet - take 1 tablet by ORAL route every 12 hours; 20 tablet. - Medication Reconciliation Form, Thank You Letter, Antibiotic Education, Prescription Opioid Use form. - Follow up: Private Physician; When: 1 - 2 days; Reason: Worsening of condition. - Problem is new. - Symptoms have improved. Signatures: Dispatcher [employer] EDMS Sudhir Lee MD MD pkl Dontae Hamilton PA PA cp Stewart, Lisa, RN RN ls4 Christal Suarez RN RN ca1 Corrections: (The following items were deleted from the chart) 12/17 22:51 22:19 12/18/2019 22:19 Discharged to Home. Impression: Cellulitis of right finger - ls4 fourth. Condition is Stable. Forms are Medication Reconciliation Form, Thank You Letter, Antibiotic Education, Prescription Opioid Use. Follow up: Private Physician; When: 1 - 2 days; Reason: Worsening of condition. Problem is new. Symptoms have improved. cp
== END 2019-12-18 22:51 | disposition home or self-care (01) ==
LOC: ER 20:29
DX: L03.011 Cellulitis of right finger (principal); Z23 Encounter for immunization; I10 Essential (primary) hypertension; E11.9 Type 2 diabetes mellitus without complications; G40.909 Epilepsy, unspecified, not intractable, without status epilepticus; Z79.4 Long term (current) use of insulin; Z88.0 Allergy status to penicillin; Z88.1 Allergy status to other antibiotic agents; Z88.5 Allergy status to narcotic agent; Z88.6 Allergy status to analgesic agent; Z88.8 Allergy status to other drugs, medicaments and biological substances; Z91.013 Allergy to seafood; Z91.018 Allergy to other foods
CPT/HCPCS: 90471; 90714; 99283

== ENCOUNTER 2020-03-24 20:23 | Emergency (ER) | payer SELFPAY ==
--- OUTSIDE RECORDS SUMMARY | 2020-03-24 20:25 | XMS REPORT | Clinical Summary ---
:1975 Author Organization [facility] Address [address] [place] [address] Care Team Providers Name Role Phone Akua [facility] Primary Care Provider Allergies Active Allergy Reactions [...] Not on file Results Not on fileafter 03/24/2019
--- OUTSIDE RECORDS SUMMARY | 2020-03-24 20:26 | XMS REPORT ---
:1975 Author Organization [employer] Care Team Providers Name Role Phone Lubna Hunt Provider Role Unavailable Allergies No Known Allergies Problems Problem Type Condition Code Onset Dates Condition Statu s Problem Ulcerative colitis K51.90 Active Problem Mixed hyperlipidemia E78.2 Active Problem Epilepsy G40.909 Active Problem Essential hypertension I10 Activ e Problem Other specified diabetes mellitus E13.42 Active with diabetic polyneuropathy Problem senior living (current) use of insulin Z79.4 Active Problem Muscle weakness (generalized) M62.81 Active Problem Type 2 diabetes mellitus with E11.65 Active hyperglycemia Problem Secondary diabetes with peripheral E13.42 Active neuropathy Problem Morbid obesity E66.01 Active Problem Encounter for disability Z02.71 Act huy examination Problem Mild intermittent asthma without J45.20 Active complication Medications Medication Code Code Instructions Start End Date Status Dosage System Date Albuterol [facility] 82105289280 (2.5 MG/3ML) Active 3 ml as Sulfate 0.083% needed Inhalation every 8 hrs PRN wheezing Results No Known Results Summary Purpose [employer] Submission
--- OUTSIDE RECORDS SUMMARY | 2020-03-24 20:26 | XMS REPORT ---
[...] mellitus E13.42 Active with diabetic polyneuropathy Problem snf (current) use of insulin Z79.4 Active Problem Muscle weakness (generalized) M62.81 Active Problem Type 2 diabetes mellitus with E11.65 Active hyperglycemia Problem Secondary diabetes with peripheral E13.42 Active neuropathy Problem Morbid obesity E66.01 Active Problem Encounter for disability Z02.71 Act huy examination Problem Mild intermittent asthma without J45.20 Active complication Medications Medication Code System Code Instructions Start End Date Status Dos age Date Keppra [facility] [id number] 500 MG Orally Active 2 tabl ets Twice a day Gabapentin ND 10243577008 600 MG Orally Active 1 c apsule Three times a day Results No Known Results Summary Purpose [employer]Clinical[employer] Submission
--- OUTSIDE RECORDS SUMMARY | 2020-03-24 20:26 | XMS REPORT ---
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 Problem Morbid obesity E66.01 Active Problem Encounter for disability Z02.71 Act huy examination Problem Mild intermittent asthma without J45.20 Active complication Assessment Morbid obesity E66.01 Active Assessment Type 2 diabetes mellitus with E11.65 Active hyperglycemia Assessment Epilepsy G40.909 Active Problem Essential hypertension I10 Activ e Assessment halfway (current) use of insulin Z79.4 Active Problem Other specified diabetes mellitus E13.42 Active with diabetic polyneuropathy Medications Medication Code Code Instructions Start End Status Dosage System Date Date Albuterol Sulfate [facility] 89564466000 (2.5 MG/3ML) December 23, Acti ve 3 ml as 0.083% 2019 needed Inhalation every 8 hrs PRN wheezing Gabapentin ND 37226474488 600 MG Orally Active 1 c apsule Three times a day Zestoretic ND 42029465347 20-25 MG Orally Active 1 tablet Once a day Flonase ND 50981606884 50 MCG/ACT Jul 26, Active 2 spray i n Nasally Once a 2018 each day nostril HumuLIN 70/30 ND 76593510973 (70-30) 100 Jul 26, Active 10 units KwikPen UNIT/ML 2016 Subcutaneous bid Keppra ND 66390681158 500 MG Orally Active take t wo Twice a day -2 tablet(s) by mouth twice a day. Lisinopril ND 43240242729 10 MG Orally Sep 09, Active 1 ta blet Once a day 2018 Levetiracetam [facility] 62547333056 500 MG Active TAKE T WO (2) TABLET(S) BY MOUTH TWICE A DAY. ProAir HFA [facility] 07527556181 108 (90 Base) Jul 26, Active 2 p uffs as MCG/ACT 2017 needed Inhalation every 6 hrs Results Name Result Date Reference Range Unit Abnormali ty Flag HEMOGLOBIN A1C ----A1C 6.6 [id number] Summary Purpose eClinicalWorks Submission
--- OUTSIDE RECORDS SUMMARY | 2020-03-24 20:26 | XMS REPORT | Continuity of Care Document ---
:1975 Author Organization [facility] t Address [address] [place] [address] Care Team Providers Name Role Phone Akua Frias Primary Care Physician Dalila Milan Attending Clinician Doctor Unassigned, Name Attending Clinician Unavailable Nazanin KELSEY S Attending Clinician IGOR SANCHEZ Attending Clinician Unavailable Problems Condition Condition Condition Status Onset Resolution Last Treating Co mments Source Name Details Category Date Date Treatment Clinician Date Epilepsy [facility]ilepsy [facility] Secondary Secondary Problem [facility] with [facility] peripheral peripheral l neuropathy neuropathy [facility] Mixed Mixed Problem Active [facility] [...] (generaliz (generaliz Me moria ed) ed) [facility] 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 Clinics Allergies, Adverse Reactions, Alerts Allergy Allergy Status Severity Reaction(s) Onset Inactive Treating Comm ents Source Name Type Date Date Clinician Coconut Drug Active [address] [facility] Allergy 3-29 [facility] - 00:[facility]: Medical 00 [place] Morphine Drug Active [address] [facility] Intolera 3-29 [facility] - nce 00:00: Medical 00 [place] Shrimp Drug Active [address] [facility] Allergy 3-29 [facility]: [facility] 00 [place] Aspirin Propensi Active Anaphylaxis 2017-[address] ty to 4-27 [facility] - adverse 00:00: Medical reaction 00 [place] Diazepam Propensi Active Anaphylaxis 2018-[address] ty to 4-27 [facility] - adverse 00:00: Medical reaction 00 Center s Iodine Propensi Active Anaphylaxis 2018-[address] ty to 4-27 [facility] - adverse 00:00: Medical reaction 00 [place] Penicill Propensi Active Anaphylaxis 2018-[address] in ty to 4-27 [facility] - adverse 00:00: Medical reaction 00 Center s Ondanset Propensi Active Anaphylaxis 2018-[address] sekou Hcl ty to 4-27 [facility] - (Pf) adverse 00:00: Medical reaction 00 [place] penicill Adverse Active anaphylaxis [facility] Iodine Adverse Active anaphylaxis [facility] Aspirin Adverse Active anaphylaxis [facility] Zofran Adverse Active anaphylaxis [facility] Diazepam Adverse Active anaphylaxis [facility] Social History Social Habit Start Date Stop Date Quantity Comments Source History SDOH Alcohol [facility] History SDOH Alcohol [facility] At [facility] History SDOH Alcohol 2018-10-15 2018-10-[address] [facility] Frequency 00:00:00 00:00:00 [facility] Center Smoking Status Start Date Stop Date Source [facility] sm[facility] Medications Ordered Filled Start Stop Current Ordering Indication Dosage Frequency Signature Comments Components Source Medication Medication Date Date Medication? Clinician (SIG) Name Name lisinopril- Yes 1{tbl} QD Take [address] hydroCHLORO 3-29 tablet by Nancy es - thiazide 11:32: mouth Medical (PRINZIDE,Z 15 daily. Center ESTORETIC) 20-25 mg per tablet levETIRAcet Yes TAKE TWO [facility] am (KEPPRA) 07 (2) [facility] - 500 MG 00:00: TABLET(S) Medica l tablet 00 BY MOUTH Center EVERY TWELVE HOURS. lisinopril Yes TAKE ONE [facility] (PRINIVIL,Z - (1) [facility] - ESTRIL) 10 00:00: TABLET(S) Me dical MG tablet 00 BY MOUTH Center ONCE A DAY. gabapentin Yes Q.98489757 3 (three) [facility] (NEURONTIN) 1-07 [id number] times L ukes - 600 MG 00:00: 3D daily. Medical tablet 00 Center insulin Yes [address] 70/30, 1-07 TID [facility] - insulin 00:00: Medical NPH-insulin 00 Center regular, (HUMULIN 70/30 U-100 KWIKPEN) 100 unit/mL (70-30) InPn insulin pen Albuterol Albuterol Yes [place] [address] [facility] Sulfate Sulfate [place] needed [facility] ent Clinics Procedures This patient has no known procedures. Encounters Start End Encounter Admission Attending Care Care Encounter Source Date/Time Date/Time Type Type Clinicians Facility Department ID 2020-03-09 2020-03-09 Outpatient Lore Valle [id number] [facility] 15:12:00 15:12:00 [facility] 2020-03-05 2020-03-05 Outpatient Lore Valle [id number] [facility] 12:02:00 12:02:00 [facility] 2020-01-02 2020-01-02 Outpatient Lore Valle [id number] [facility] 11:40:00 11:40:00 [facility] 2019-09-27 2019-09-27 [facility] [id number] 11:40:39 18:09:00 Sachinshira Dalila Avani [id number] [place] [id number] [place] [id number] 2019-09-27 2019-09-27 Orders Doctor DUSTIN [id number] 00:00:00 00:00:00 Only Unassigned, [id number] [place] [id number] 2019-08-24 2019-08-24 [facility] [id number] 10:44:00 10:44:00 [facility] ent [facility] 2019-08-13 2019-08-13 Emergency [facility] [id number] 11:49:00 12:46:00 Ramya Grimes Avani [id number] [place] [id number] [place] [id number] 2019-08-13 2019-08-13 Orders Doctor DUSTIN [id number] 00:00:00 00:00:00 Only Unassigned, [place] [id number] [place].7.2.686 [id number] 2019-08-11 2019-08-11 [facility] [id number] 14:00:00 14:00:00 [facility] Medicine [facility] 2019-08-04 2019-08-04 [facility] [id number] 10:42:00 10:42:00 [facility] 2019-04-14 2019-04-14 [facility] [id number] [address] 14:40:00 14:40:00 [facility] Medicine Medicine Outpati ent Clinics 2019-04-11 2019-04-11 [facility] [id number] 11:12:00 11:12:00 [place] [address] [place] [address] [facility] Medicine Outpati ent Clinics 2019-03-03 2019-03-03 [facility] [id number] 16:39:00 16:39:00 t [facility] Medicine Outpati ent Clinics 2019-02-03 2019-02-03 [facility] [id number] 11:00:00 11:00:[address] [facility] Medicine Medicine Outpati ent Clinics 2018-09-17 2018-09-17 [facility] [id number] 12[facility]26:00 12:26:00 t [facility] Medicine Outpati ent Clinics 2018-09-09 2018-09-09 [facility] [id number] 13:30:00 13:30:00 t [facility] Medicine Medicine Outpati ent Clinics 2018-04-23 2018-04-23 [facility] [id number] 10:00:00 10:00:00 t [facility] Medicine Outpati ent Clinics 2018-04-22 2018-04-22 [facility] [id number] 14:14:00 14:14:00 t [facility] Medicine Outpati ent Clinics 2018-04-20 2018-04-20 [facility] [id number] 10:02:00 10:02:00 t [facility] Medicine Outpati ent Clinics 2018-04-19 2018-04-19 [facility] [id number] 16:33:00 16:33:00 t [facility] Medicine Outpati ent Clinics 2018-04-16 2018-04-16 [facility] [id number] 09:30:00 09:30:[address] [facility] 2018-02-19 2018-02-19 Outpatient Lore Valle [id number] 10:45:00 10:45:[address] [facility] 2017-12-07 2017-12-07 Outpatient Lore Torrezt [id number] 08:36:00 08:36:00 t Urgent [facility] 2017-11-13 2017-11-13 Outpatient Lore Valle [id number] 10:30:00 10:30:[address] [facility] Results Test Description Test Time Test Comments Results Result Comments Source SCREEN, URINE 2018-10-15 15:27:00 Test Item Value Reference Range Interpretation Comme nts TEST URINE (BEAKER) (test code = 583) Negative URINALYSIS WITH MICROSCOPIC IF [id number] 14:55:00 Test Item Value Reference Range Interpretation [...] = 2795) RAD, CHEST, 1 VIEW, NON [id number] 13:46:00Reason for exam:->chest painIs the patient ?->UnknownShould this be performed at the [facility]?->YesFINAL REPORT Chest, AP view. History: Chest pain. Comparison: None available. Discussion: The cardiomediastinal silhouette and pulmonary vasculature are within normal limits. The lungs are clear without evidence of consolidation or effusion. There are no acute osseous abnormalities. The soft tissues are unremarkable. IMPRESSION: No acute cardiopulmonary abnormality. Signed: Kirstie Ozuna MDReport Verified Date/Time: 10/15/2018 13:46:07 Reading Location: [facility] B-TYPE NATRIURETIC FACTOR (BNP)2018-10-15 13:45:00 Test Item Value Reference Range Interpretation Comments B-TYPE NATRIURETIC PEPTIDE (BEAKER) < pg/mL 0-100 (test code = 700) TROPONIN [id number] 13:42:00 Test Item Value Reference Range Interpretation Comments TROPONIN I (BEAKER) (test code = 397) < ng/mL 0.00-0.03 [...] failure, acidosis, acute neurological disease, and persistent tachyarrhythmia.[id number] 13:36:00 Test Item Value Reference Range Interpretation Comments MAGNESIUM (BEAKER) (test code = 1.9 mg/dL 1.6-2.6 627) COMPREHENSIVE METABOLIC [id number] 13:36:00 Test Item Value Reference Range Interpretation [...] ATED GFR. CBC W/PLT COUNT & AUTO [id number] 13:09:00 Test Item Value Reference Range Interpretation [...] % 0-1 PERCENT (BEAKER) (test code = 4330)
[2020-03-24] MEDS ORDERED: HYDROCODONE/APAP 10/325 TAB ONE ×2 (20:58)
--- NOTE | 2020-03-24 21:06 | RAD REPORT ---
EXAM DESCRIPTION: RAD - Wrist Left 3 View - 03/24/2020 8:56 pm CLINICAL HISTORY: PAIN Pain COMPARISON: No comparisons FINDINGS: Bony fragmentation involving the ulnar styloid has the appearance of an old injury. No ac [place] fracture or dislocation is identified.
--- NOTE | 2020-03-24 21:07 | RAD REPORT ---
EXAM DESCRIPTION: RAD - Foot Right 3 View - 03/24/2020 8:56 pm CLINICAL HISTORY: PAIN COMPARISON: No comparisons FINDINGS: A prominent plantar calcaneal spur is seen. No acute fracture or dislocation is seen.
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
--- NOTE | 2020-03-24 21:19 | ER ---
Nurse's Notes [facility] Name: Britt Bower Age: 44 yrs Sex: Female : 1975 Arrival Date: 03/24/2020 Time: 20:25 Bed 14 Private MD: Diagnosis: Unspecified sprain of right foot;Pain in left wrist Presentation: 03/24 20:34 Chief complaint: Patient states: Reports she fell yesterday from a standing position ea onto the ground hurt her right foot and her left wrist pt reports. Coronavirus screen: At this time, the client does not indicate any symptoms associated with coronavirus-19. Ebola Screen: No symptoms or risks identified at this time. 20:34 Method Of Arrival: Wheelchair ea 20:37 Initial Sepsis Screen: Does the patient meet any 2 criteria? No. Patient's initial ea sepsis screen is negative. Does the patient have a suspected source of infection? No. Patient's initial sepsis screen is negative. Risk Assessment: Do you want to hurt yourself or someone else? Patient reports no desire to harm self or others. Onset of symptoms was March 24, 2020. 20:37 Acuity: [facility] 3 ea Triage Assessment: 20:38 General: Appears in no apparent distress. Behavior is appropriate for age. Pain: ea Complains of pain in left hand, right foot and left foot. Musculoskeletal: Circulation, motion, and sensation intact. 22:00 Injury Description: sprain. 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 ea Historical: - Allergies: 20:42 Amoxicillin; ea 20:42 Aspirin; ea 20:42 Coconut; ea 20:42 diazepam; ea 20:42 Iodine; ea 20:42 Morphine; ea 20:42 Ondansetron HCl; ea 20:42 PENICILLINS; ea 20:42 Piperacillin Sodium; ea 20:42 shrimp; ea 20:42 tazobactam sodium; ea 20:42 Zofran; ea - Home Meds: 20:42 lisinopril-hydrochlorothiazide 20-25 mg Oral tab once daily for Hypertension [Active]; ea lisinopril 10 mg Oral tab 1 tab nightly [Active]; levetiracetam 500 mg Oral tab 1 tab 2 times per day for Tonic-Clonic Epilepsy Treatment Adjunct [Active]; Humulin 70/30 100 unit/mL (70-30) Sub-Q tab for Type 2 Diabetes Mellitus [Active]; gabapentin 600 mg Oral tab 1 tab 3 times per day for Neuropathic Pain [Active]; - PMHx: 20:42 neuropathy; Hypertension; history of stroke; epilepsy; Asthma; Diabetes - IDDM; ea - Immunization history:: Adult Immunizations up to date. - Social history:: Smoking status: Patient denies any tobacco usage or history of. Screenin:36 Abuse screen: Denies threats or abuse. Nutritional screening: No deficits noted. ea Tuberculosis screening: No symptoms or risk factors identified. Fall Risk None identified. Assessment: 20:30 General: Appears in no apparent distress. comfortable, obese, Behavior is calm, vc cooperative, appropriate for age. Pain: Complains of pain in left wrist and dorsum of right foot Pain does not radiate. Pain currently is 7 out of 10 on a pain scale. Quality of pain is described as sharp, throbbing, Pain began suddenly, Alleviated by rest, heat application, Aggravated by increased activity, repositioning, weight bearing, cold. Neuro: Level of Consciousness is awake, alert, obeys commands, Oriented to person, place, time, situation, Appropriate for age Dermatology Physician are equal bilaterally. Cardiovascular: Capillary refill < 3 seconds Patient's skin is warm and dry. 21:30 Reassessment: Patient appears in no apparent distress at this time. Patient and/or vc family updated on plan of care and expected duration. Pain level reassessed. Patient is alert, oriented x 3, equal unlabored respirations, skin warm/dry/pink. Patient states symptoms have improved. Cardiovascular: Edema present in left foot. Respiratory: No deficits noted. GI: No signs and/or symptoms were reported involving the gastrointestinal system. : No signs and/or symptoms were reported regarding the genitourinary system. Derm: Skin is intact, is healthy with good turgor, Skin temperature is warm. Vital Signs: 20:37 BP 111 / 70; Pulse 77; Resp 18; Temp 97.8; Pulse Ox 95% on R/A; Weight 101.15 kg; ea Height 5 ft. (152.40 cm); Pain 8/10; 21:30 BP 112 / 72; Pulse 72; Resp 18; Pulse Ox 96% on R/A; vc 20:37 Body Mass Index 43.55 (101.15 kg, 152.40 cm) ea ED Course: 20:25 Patient arrived in ED. bp1 20:31 Meredith Antonio, RN is Primary Nurse. vc 20:32 Ralph White NP is PHCP. pm1 20:32 Jesus Rizzo MD is Attending Physician. pm1 20:36 Patient has correct armband on for positive identification. Bed in low position. Call ea light in reach. 20:37 Triage completed. ea 20:38 Arm band placed on right wrist. Patient placed in an exam room, on a stretcher, on ea pulse oximetry. 20:56 Foot Right 3 View XRAY In Process Unspecified. EDMS 20:56 Wrist Left (3 View) XRAY In Process Unspecified. EDMS 21:00 Crutch training done. Rafy wrap to left wrist and right ankle Ortho shoe applied to left vc foot. 03/25 00:12 No provider procedures requiring assistance completed. Patient did not have IV access vc during this emergency room visit. Administered Medications: 03/24 20:49 Drug: [place] 10 mg-325 mg 1 tabs {Note: rass 0.} Route: PO; ea 22:00 Follow up: Response: No adverse reaction; Pain is decreased vc Outcome: 21:19 Discharge ordered by MD. pm1 22:00 Discharged to home ambulatory, with crutches. vc 22:00 Condition: good 22:00 Condition: good 22:00 Discharge instructions given to patient, Instructed on discharge instructions, follow up and referral plans. medication usage, crutch walking, Demonstrated understanding of instructions, follow-up care, medications, crutch walking, Prescriptions given X 1. 22:04 Patient left the ED. vc Signatures: Dispatcher [employer] EDMS Ralph White, CEE ENROBER TENDER pm1 Itzel Rivas, RN Meredith Ghotra ea, RN RN Giuliana Sarkar bp1
[2020-03-25 19:45] VITALS: BP 111/70; TEMP 97.8; O2SAT 95
== END 2020-03-24 22:04 | disposition home or self-care (01) ==
LOC: ER 20:23
DX: S93.601A Unspecified sprain of right foot, initial encounter (principal); M25.532 Pain in left wrist; W19.XXXA Unspecified fall, initial encounter; Y93.01 Activity, walking, marching and hiking; Y92.410 Unspecified street and highway as the place of occurrence of the external cause; I10 Essential (primary) hypertension; E11.9 Type 2 diabetes mellitus without complications; Z79.4 Long term (current) use of insulin; G40.909 Epilepsy, unspecified, not intractable, without status epilepticus; Z86.73 Personal history of transient ischemic attack (TIA), and cerebral infarction without residual deficits; Z88.0 Allergy status to penicillin; Z88.1 Allergy status to other antibiotic agents; Z88.5 Allergy status to narcotic agent; Z88.6 Allergy status to analgesic agent; Z88.8 Allergy status to other drugs, medicaments and biological substances; Z91.013 Allergy to seafood; Z91.048 Other nonmedicinal substance allergy status
CPT/HCPCS: 99284

== ENCOUNTER 2020-06-19 23:34 | Emergency (ER) | payer SELFPAY ==
[2012-04-03 05:44] VITALS: BP 121/78
--- OUTSIDE RECORDS SUMMARY | 2020-06-19 23:38 | XMS REPORT ---
:1975 Author Organization [facility] Address 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 Active 43319663 diabetes mellitus with diabetic polyneuropathy Problem Secondary diabetes E13.42 Active 34533955 with peripheral neuropathy Problem Mild intermittent J45.20 Active 731658039 asthma without complication Problem Encounter for Z02.71 Active 211864911 disability examination Problem Muscle weakness M62.81 Active 11505089 (generalized) ALLERGIES Allergen (clinical Drug/Non Drug Reaction Allergy Type Onset Date S tatus drug ingredient) Allergy documented on EMR aspirin Aspirin([facility] anaphylaxis Drug Allergy Active Code:[address]-54) Iodine([facility] anaphylaxis Drug Allergy Active Code:70411-44425) ondansetron Zofran([facility] anaphylaxis Drug Allergy Active Code:[address]-95) penicillin anaphylaxis Drug Allergy Active diazepam Diazepam([facility] anaphylaxis Drug Allergy Active Code:[address]-20) ENCOUNTERS from 1975 to 2020-04-19 Encounter Location Date Provider [facility] [address] [facility] [address], [place] ntial hypertension Family [facility] [address] ; [place] [address] diabetes melli tus with diabetic polyne uropathy E13.42 and Inju ry of right foot, ini tial encounter S99.9 21A IMMUNIZATIONS No Information SOCIAL HISTORY Tobacco Use: Social History Observation Description Date Details (start date - stop date) Never Smoker Sex Assigned At : Social History Observation Description Sex Assigned At Unknown Alcohol Screen Question Answer Notes Did you have a drink containing alcohol in the past year? No Points 0 Interpretation Negative Tobacco Use/Smoking Question Answer Notes Are you a never smoker REASON FOR REFERRAL No Information VITAL SIGNS Height 61.5 in Apr, Weight 228.0 lbs Apr, Temperature 97.9 degrees Fahrenheit Apr, BMI 42.38 kg/m2 Apr, Oximetry 99 % Apr, Respiratory Rate 18 /min Apr, Blood pressure systolic 125 mm Hg Apr, Blood pressure diastolic 80 mm Hg Apr, MEDICATIONS Medication SIG (Take, Route, Start Date End Date Status Frequency, Duration) Zestoretic 20-25 MG 1 tablet Orally Once a day Active Flonase 50 MCG/ACT 2 spray in each nostril Jul, Active Nasally Once a day for 30 days Lisinopril 10 MG 1 tablet Orally Once a day Active Keppra 500 MG 2 tablets Orally Twice a Ac tive day for 30 days ProAir HFA 108 (90 Base) INHALE TWO (2) PUFF(S) Active MCG/ACT EVERY FOUR HOURS NEEDED FOR WHEEZING OR SHORTNESS OF BREATH. Gabapentin 600 MG 1 capsule Orally Three Active times a day for 90 Albuterol Sulfate (2.5 3 ml as needed Inhalation Active MG/3ML) 0.083% every 8 hrs PRN wheezing Levetiracetam 500 MG TAKE TWO (2) TABLET(S) BY Active MOUTH TWICE A DAY. for 90 HumuLIN 70/30 KwikPen (70-30) 10 units Subcutaneous bid Jul, 6 Active 100 UNIT/ML for 30 days PROCEDURES No Information RESULTS No Results REASON FOR VISIT 3 month f/u [id number] MEDICAL (GENERAL) HISTORY Type Description Date Medical History Mixed hyperlipidemia Medical History Accelerated essential hypertension Medical History Epilepsy Medical History Diabetes type 2, controlled Medical History Secondary diabetes with peripheral neuro angélica Medical History Other specified diabetes mellitus with d iabetic polyneuropathy Medical History Morbid obesity Medical History Ulcerative colitis Surgical History I&D arm, spider bites Surgical History Hysterectomy- ovarian cancer 2009 Surgical History Gall Bladder removed 2008 Surgical History Ectopic pregnancies [id number] Goals Section No Information Health Concerns No Information MEDICAL EQUIPMENT No Information MENTAL STATUS No Information FUNCTIONAL STATUS No Information ASSESSMENTS Encounter Date Diagnosis Notes Apr, Other specified diabetes mellitus with d iabetic polyneuropathy (ICD-10 - E13.42) Apr, Essential hypertension (ICD-10 - I10) Apr, Injury of right foot, initial encounter (ICD-10 - S99.921A) PLAN OF TREATMENT Treatment Notes Assessment Notes Clinical Notes Essential hypertension med as directed dailycheck BP daily Other specified diabetes mellitus ionc insulin by 2 units in am can with diabetic polyneuropathy inc by 2 every 5 days until sugars are below 130 Injury of right foot, initial try Am Home Pt for ortho encounter Sheila Next Appt Details 3 Months Reason: Provider Name:Lubna Hunt, 2020-07-23 02 :40:00 PM, [address] [facility], [address], [place], [address],
--- OUTSIDE RECORDS SUMMARY | 2020-06-19 23:38 | XMS REPORT | Continuity of Care Document ---
:1975 Author Organization [facility] t Address [address] [place] [address] Care Team Providers Name Role Phone Akua Frias Primary Care Physician Dalila Milan Attending Clinician Doctor Unassigned, Name Attending Clinician Unavailable Nazanin KELSEY S Attending Clinician IGOR SANCHEZ Attending Clinician Unavailable Problems This patient has no known problems. Allergies, Adverse Reactions, Alerts Allergy Allergy Status Severity Reaction(s) Onset Inactive Treating Comm ents Source Name Type Date Date Clinician Coconut Drug Active 2018- [facility] Morphine Drug Active cp [facility] n[facility] Medical 00 Center Shrimp Drug Active 2018- [facility] - [facility]: Medical 00 [place] Aspirin Propensi Active Anaphylaxis 2017- [facility] - adverse 00:00: Medical reaction 00 Center s Diazepam Propensi Active Anaphylaxis 2018- [facility] 4-[facility] - adverse 00:00: Medical reaction 00 Center s Iodine Propensi Active Anaphylaxis 2018-[address] [facility] ty to 4-27 [facility] - adverse 00:00: Medical reaction 00 Center s Penicill Propensi Active Anaphylaxis [facility] ty to 11-13 [facility] - adverse 00:00: Medical reaction 00 Center s Ondanset Propensi Active Anaphylaxis [facility] sekou Hcl ty to 11-13 [facility] - (Pf) adverse 00:00: Medical reaction 00 Center s penicill Adverse Active anaphylaxis [facility] Iodine Adverse Active anaphylaxis [facility] Aspirin Adverse Active anaphylaxis [facility] Zofran Adverse Active anaphylaxis [facility] Diazepam Adverse Active anaphylaxis [facility] Social History Social Habit Start Date Stop Date Quantity Comments Source History [facility] - Alcohol Std Drinks Medica l Center History [facility] Alcohol Binge Medical Alessia ter Sex Assigned At [facility] Tobacco use and 2018-10-15 2018-10-15 Never used [facility] - exposure 00:00:00 00:00:00 Medical Center Alcohol intake 2018-10-15 2018-10-15 Current [facility] Nancy es - 00:00:00 00:00:00 non-drinker of Medical Ce nter alcohol (finding) History [facility] 2018-10-15 2018-10-[address] [facility] - Alcohol Frequency 00:00:00 00:00:00 [facility] Smoking Status Start Date Stop Date Source [facility] smoker [facility] Medications Ordered Filled Start Stop Current Ordering Indication Dosage Frequency Signature Comments Components Source Medication Medication Date Date Medication? Clinician (SIG) Name Name lisinopril- Yes 1{tbl} QD Take [address] hydroCHLORO 3-29 tablet by Nancy es - thiazide 11:40: mouth Medical (PRINZIDE,Z 24 daily. Center ESTORETIC) 20-25 mg per tablet levETIRAcet Yes TAKE TWO [facility] am (KEPPRA) 3-07 (2) [facility] - 500 MG 00:00: TABLET(S) Medica l tablet 00 BY MOUTH Center EVERY TWELVE HOURS. lisinopril 2019-0 Yes TAKE ONE [facility] (PRINIVIL,Z 3-07 (1) [facility] - ESTRIL) 10 00:00: TABLET(S) Me dical MG tablet 00 BY MOUTH Center ONCE A DAY. gabapentin Yes [id number] 3 (three) [facility] (NEURONTIN) 1-07 [id number] times L ukes - 600 MG 00:00: 3D daily. Medical tablet 00 Center insulin Yes [address] 70/30, 1-07 TID [facility] - insulin 00:00: Medical NPH-insulin 00 Center regular, (HUMULIN 70/30 U-100 KWIKPEN) 100 unit/mL (70-30) InPn insulin pen Albuterol Albuterol Yes [place] [address] [facility] Sulfate Sulfate Dana needed [facility] ent Clinics Procedures This patient has no known procedures. Plan of Care Planned Activity Planned Date Details Comments Source Future Scheduled 2020-03-[address] [facility] - Test 00:00:00 (#1) [code = [facility] INFLUENZA VACCINE (#1)] Future Scheduled [address] [facility] - Test 00:00:00 (procedure) [code = [facility] 86893359] Future Scheduled [address] [facility] - Test 00:00:00 malignant neoplasm Medical C enter of cervix (procedure) [code = 694321496] Encounters Start End Encounter Admission Attending Care Care Encounter Source Date/Time Date/Time Type Type Clinicians Facility Department ID 2020-04-19 2020-04-19 Outpatient STLMLC [facility] [id number] [facility] 2020-03-09 2020-03-09 Outpatient Lore Valle [id number] [facility] 15:12:00 15:12:00 [facility] l Medicine Outpati ent Clinics 2020-03-05 2020-03-05 Outpatient Lore Valle [id number] [facility] 12:02:00 12:02:00 [facility] Medicine [facility] 2020-01-02 2020-01-02 Outpatient Lore Valle [id number] 11:40:00 11:40:00 [facility] Medicine Outpati ent Clinics 2019-09-27 2019-09-27 Emergency Carlie [facility] [id number] 11:40:39 18:09:00 Charity Conner Avani [id number] [place] [id number] [place] [id number] 2019-09-27 2019-09-27 Orders Doctor DUSTIN [id number] 00:00:00 00:00:00 Only Unassigned, HARMAN [id number] [place] [id number] 2019-08-24 2019-08-24 [facility] [id number] 10:44:00 10:44:00 [facility] 2019-08-13 2019-08-13 [facility] [id number] 11:49:00 12:46:00 Ramya Grimes Avani [id number] [place] [id number] [place] [id number] 2019-08-13 2019-08-13 Orders Doctor DUSTIN [id number] 00:00:00 00:00:00 Only Unassigned, HAR[place] [id number] [place] [id number] 2019-08-11 2019-08-11 [facility] [id number] 14:00:00 14:00:00 [facility] Medicine Outpati ent Clinics 2019-08-04 2019-08-04 [facility] [id number] 10:42:00 10:42:00 [facility] Medicine Outpati ent Clinics 2019-04-14 2019-04-14 [facility] [id number] 14:40:00 14:40:00 [facility] Medicine Outpati ent Clinics 2019-04-11 2019-04-11 [facility] [id number] 11:12:00 11:12:[address] [place] s - Drive [facility] Medicine Medicine Outpati ent Clinics 2019-03-03 2019-03-03 [facility] [id number] 16:39:00 16:39:00 t [facility] Road [facility] Medicine l Medicine Outpati ent Clinics 2019-02-03 2019-02-03 [facility] [id number] 11:00:00 11:00:00 t [facility] Road [facility] Medicine l Medicine Outpati ent Clinics 2018-09-17 2018-09-17 [facility] [id number] 12[facility]26:00 12:26:00 [facility] [address] [facility] Medicine l Medicine Outpati ent Clinics 2018-09-09 2018-09-09 [facility] [id number] 13:30:00 13:30:00 t [facility] Road [facility] Medicine Medicine Outpati ent Clinics 2018-04-23 2018-04-23 [facility] [id number] 10:00:00 10:00:00 t [facility] Medicine Medicine Outpati ent Clinics 2018-04-22 2018-04-22 [facility] [id number] 14:14:00 14:14:00 t [facility] Medicine Medicine Outpati ent Clinics 2018-04-20 2018-04-20 [facility] [id number] 10:02:00 10:02:00 t [facility] Road [facility] Medicine Medicine Outpati ent Clinics 2018-04-19 2018-04-19 [facility] [id number] 16:33:00 16:33:00 t [facility] [address] [facility] Medicine Medicine Outpati ent Clinics 2018-04-16 2018-04-16 [facility] [id number] 09:30:00 09:30:00 t [facility] 2018-02-19 2018-02-19 Outpatient Lore Valle [id number] 10:45:00 10:45:00 t [facility] 2017-12-07 2017-12-07 Outpatient Lore Torrezt [id number] 08:36:00 08:36:00 t Urgent [facility] 2017-11-13 2017-11-13 Outpatient Lore Torrezt [id number] 10:30:00 10:30:00 t [facility] Results Test Description Test Time Test Comments Results Result Comments Source SCREEN, URINE 2018-10-15 15:27:00 Test Item Value Reference Range Interpretation Comme nts TEST URINE (BEAKER) (test code = 583) Negative URINALYSIS WITH MICROSCOPIC IF [id number] 14:55:00 Test Item Value Reference Range Interpretation [...] = 2795) RAD, CHEST, 1 VIEW, NON [id number] 13:46:00Reason for exam:->chest painIs the patient ?->UnknownShould this be performed at the [facility]?->YesFINAL REPORT Chest, AP view. History: Chest pain. Comparison: None available. Discussion: The cardiomediastinal silhouette and pulmonary vasculature are within normal limits. The lungs are clear without evidence of consolidation or effusion. There are no acute osseous abnormalities. The soft tissues are unremarkable. IMPRESSION: No acute cardiopulmonary abnormality. Signed: Kirstie Ozuna MDReport Verified Date/Time: 10/15/2018 13:46:07 Reading Location: [facility] B-TYPE NATRIURETIC FACTOR (BNP)2018-10-15 13:45:00 Test Item Value Reference Range Interpretation Comments B-TYPE NATRIURETIC PEPTIDE (BEAKER) < pg/mL 0-100 (test code = 700) TROPONIN [id number] 13:42:00 Test Item Value Reference Range Interpretation [...] failure, acidosis, acute neurological disease, and persistent tachyarrhythmia.[id number] 13:36:00 Test Item Value Reference Range Interpretation Comments MAGNESIUM (BEAKER) (test code = 1.9 mg/dL 1.6-2.6 627) COMPREHENSIVE METABOLIC [id number] 13:36:00 Test Item Value Reference Range Interpretation [...] ATED GFR. CBC W/PLT COUNT & AUTO [id number] 13:09:00 Test Item Value Reference Range Interpretation [...] % 0-1 PERCENT (BEAKER) (test code = 6882)
--- OUTSIDE RECORDS SUMMARY | 2020-06-19 23:38 | XMS REPORT | Clinical Summary ---
:1975 Author Organization [facility] Address [address] [place] [address] Care Team Providers Name Role Phone Akua Hunt CLINICAL ASSOCIATE Primary Care Provider Allergies Active Allergy Reactions [...] Assigned at Date Recorded Not on file Last Filed Vital Signs Not on file Plan of Treatment Health Maintenance Due Date Last Done Comments CERVICAL CANCER SCREENING PAP ONLY (Age 21-65) 1995 LIPID PANEL 2019 INFLUENZA VACCINE (#1) 2020 Results Not on fileafter 06/19/2019
[2020-06-20] MEDS ORDERED: KETOROLAC 30 MG/ML INJ ONE (00:29)
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
--- NOTE | 2020-06-20 04:22 | EDPHYS ---
Physician Documentation [facility] Name: Britt Bower Age: 45 yrs Sex: Female : 1975 Arrival Date: 06/19/2020 Time: 23:38 Bed 14 Private MD: ED Physician Niki Chiu HPI: 06/20 02:01 This 45 yrs old Female presents to ER via Ambulatory with complaints of ma2 Abdominal Pain, Back Pain, Eye Problem. 02:01 The patient presents with pain that is acute, and an injury. The symptoms are located ma2 in the low back, lumbar spine. Onset: The symptoms/episode began/occurred gradually, 2 day(s) ago. Associated signs and symptoms: Pertinent negatives: constipation, dysuria, headache, hematuria. Severity of symptoms: At their worst the symptoms were moderate, in the emergency department the symptoms are unchanged. The patient has experienced similar episodes in the past. 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 LMP N/A - Hysterectomy aj1 Historical: - Allergies: 23:48 Amoxicillin; aj1 23:48 Aspirin; aj1 23:48 Coconut; aj1 23:48 diazepam; aj1 23:48 Iodine; aj1 23:48 Morphine; aj1 23:48 Ondansetron HCl; aj1 23:48 PENICILLINS; aj1 23:48 Piperacillin Sodium; aj1 23:48 shrimp; aj1 23:48 tazobactam sodium; aj1 23:48 Zofran; aj1 - Home Meds: 23:48 gabapentin 600 mg Oral tab 1 tab 3 times per day for Neuropathic Pain [Active]; Humulin aj1 70/30 100 unit/mL (70-30) Sub-Q tab for Type 2 Diabetes Mellitus [Active]; levetiracetam 500 mg Oral tab 1 tab 2 times per day for Tonic-Clonic Epilepsy Treatment Adjunct [Active]; lisinopril 10 mg Oral tab 1 tab nightly [Active]; lisinopril-hydrochlorothiazide 20-25 mg Oral tab once daily for Hypertension [Active]; - PMHx: 23:48 Asthma; Diabetes - IDDM; epilepsy; history of stroke; Hypertension; neuropathy; aj1 - Immunization history:: Flu vaccine is up to date. - Social history:: Smoking status: Patient/guardian denies using tobacco. - Family history:: not pertinent. ROS: 06/20 02:01 Constitutional: Negative for fever, chills, and weight loss. ma2 All other systems are negative. Exam: 02:01 Constitutional: This is a well developed, well nourished patient who is awake, alert, ma2 and in no acute distress. Head/Face: Normocephalic, atraumatic. Eyes: has left eye small subconjuctival hemorrheage, otherwise Pupils equal round and reactive to light, extra-ocular motions intact. Lids and lashes normal. Conjunctiva and sclera are non-icteric and not injected. Cornea within normal limits. Periorbital areas with no swelling, redness, or edema. ENT: Nares patent. No nasal discharge, no septal abnormalities noted. Tympanic membranes are normal and external auditory canals are clear. Oropharynx with no redness, swelling, or masses, exudates, or evidence of obstruction, uvula midline. Mucous membranes moist. Neck: Trachea midline, no thyromegaly or masses palpated, and no cervical lymphadenopathy. Supple, full range of motion without nuchal rigidity, or vertebral point tenderness. No Meningismus. Chest/axilla: Normal chest wall appearance and motion. Nontender with no deformity. No lesions are appreciated. Cardiovascular: Regular rate and rhythm with a normal S1 and S2. No gallops, murmurs, or rubs. Normal PMI, no JVD. No pulse deficits. Respiratory: Lungs have equal breath sounds bilaterally, clear to auscultation and percussion. No rales, rhonchi or wheezes noted. No increased work of breathing, no retractions or nasal flaring. Abdomen/GI: she has candidal infection under abdominal fold on right and middle lower abdomin.. otherwise Soft, non-tender, with normal bowel sounds. No distension or tympany. No guarding or rebound. No evidence of tenderness throughout. Back: No spinal tenderness. No costovertebral tenderness. Full range of motion. Skin: Warm, dry with normal turgor. Normal color with no rashes, no lesions, and no evidence of cellulitis. MS/ Extremity: Pulses equal, no cyanosis. Neurovascular intact. Full, normal range of motion. Neuro: Awake and alert, GCS 15, oriented to person, place, time, and situation. Cranial nerves II-XII grossly intact. Motor strength 5/5 in all extremities. Sensory grossly intact. Cerebellar exam normal. Normal gait. Vital Signs: 06/19 23:40 BP 119 / 86; Pulse 64; Resp 18; Temp 97.0; Pulse Ox 99% on R/A; Weight 103.42 kg (R); aj1 Height 5 ft. 0 in. (152.40 cm) (R); Pain 8/10; 06/20 01:45 BP 97 / 71; Pulse 68; Resp 16; Pulse Ox 96% on R/A; jb4 06/19 23:40 Body Mass Index 44.53 (103.42 kg, 152.40 cm) aj1 MDM: 06/19 23:54 Patient medically screened. ma2 06/20 02:01 Differential diagnosis: Pyelonephritis spinal injury, sprain, Ureterolithiasis. Data mt2 reviewed: vital signs, nurses notes. 02:16 Response to treatment: the patient's symptoms have resolved after treatment. mt2 06/20 00:06 Order name: Urine Dipstick-Ancillary (obtain specimen); Complete Time: 01:48 [facility] Administered Medications: 00:15 Drug: TORadol 60 mg Route: IM; Site: right gluteus; [facility] 01:00 Follow up: Response: No adverse reaction; Pain is decreased [facility] Disposition: 06/20/20 02:16 Discharged to Home. Impression: Abdominal and pelvic pain. - Condition is Stable. - Discharge Instructions: Abdominal Pain, Adult. - Prescriptions for Tears Naturale Free (PF) - place 1 drop by OPHTHALMIC route 4 times per day; 1 bottle. Diclofenac Sodium 75 mg Oral Tablet Sustained Release - take 1 tablet by ORAL route 2 times per day; 30 tablet. Nystatin- Triamcinolone 100,000-0.1 unit/g-% Topical Cream - apply 1 application by TOPICAL route 2 times per day; 1 tube. - Medication Reconciliation Form, Thank You Letter, Antibiotic Education, Prescription Opioid Use form. - Follow up: Private Physician; When: Tomorrow; Reason: Continuance of care. Signatures: Coreen eHrnandez RN RN aj1 Leandro Holcomb RN RN jb4 Niki Chiu MD MD ma2 Corrections: (The following items were deleted from the chart) 02:25 02:16 06/20/2020 02:16 Discharged to Home. Impression: Abdominal and pelvic pain. jb4 Condition is Stable. Prescriptions for Tears Naturale Free (PF) - place 1 drop by OPHTHALMIC route 4 times per day; 1 bottle, Diclofenac Sodium 75 mg Oral Tablet Sustained Release - take 1 tablet by ORAL route 2 times per day; 30 tablet, Nystatin-Triamcinolone 100,000-0.1 unit/g-% Topical Cream - apply 1 application by TOPICAL route 2 times per day; 1 tube. and Forms are Medication Reconciliation Form, Thank You Letter, Antibiotic Education, Prescription Opioid Use. Follow up: Private Physician; When: Tomorrow; Reason: Continuance of care. ma2
--- NOTE | 2020-06-20 12:19 | RAD REPORT ---
EXAM DESCRIPTION: CT Abdomen and Pelvis Without Intravenous Contrast CLINICAL HISTORY: The patient is 45 years old and is Female; ABD PAIN TECHNIQUE: Axial computed tomography images of the abdomen and pelvis without intravenous contrast. Sagittal and coronal reformatted images were created and reviewed. This CT exam was performed usi ng one or more of the following dose reduction techniques: automated exposure control, adjustment o f the mA and/or kV according to patient size, and/or use of iterative reconstruction technique. COMPARISON: CT of the abdomen and pelvis August 05, 2018 FINDINGS: LUNG BASES: Unremarkable. No mass. No consolidation. ABDOMEN: LIVER: The liver is enlarged and diffusely fatty. GALLBLADDER AND BILE DUCTS: Surgical clips are present in the right upper quadrant, consistent w ith previous cholecystectomy. PANCREAS: Unremarkable. No ductal dilation. SPLEEN: Unremarkable. ADRENALS: Unremarkable. No mass. KIDNEYS AND URETERS: No obstructing stones. No hydronephrosis. No perinephric fluid. STOMACH AND BOWEL: The stomach is minimally distended with food contents. The small bowel is nor mal in caliber. A moderate amount of stool is present throughout colon. There is no mucosal thickenin g or evidence of bowel obstruction. A splenule is present within the left upper quadrant. The spleen is unremarkable. PELVIS: APPENDIX: The appendix is normal in caliber without surrounding inflammation. BLADDER: Unremarkable. No stones. REPRODUCTIVE: The patient is status post hysterectomy. ABDOMEN and PELVIS: INTRAPERITONEAL SPACE: Unremarkable. No free air. No significant fluid collection. BONES/JOINTS: No acute fracture. SOFT TISSUES: The soft tissues are normal. VASCULATURE: Unremarkable. No abdominal aortic aneurysm. LYMPH NODES: Unremarkable. No enlarged lymph nodes. IMPRESSION: No acute findings on this noncontrasted CT of the abdomen and pelvis to explain the sadi ent's symptoms. 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 The interpreting r adiologist is fully responsible for the content of the report.
== END 2020-06-20 02:25 | disposition home or self-care (01) ==
LOC: ER 23:34
DX: R10.2 Pelvic and perineal pain (principal); I10 Essential (primary) hypertension; G40.909 Epilepsy, unspecified, not intractable, without status epilepticus; E11.9 Type 2 diabetes mellitus without complications; Z79.4 Long term (current) use of insulin; Z88.0 Allergy status to penicillin; Z88.1 Allergy status to other antibiotic agents; Z88.5 Allergy status to narcotic agent; Z88.6 Allergy status to analgesic agent; Z88.8 Allergy status to other drugs, medicaments and biological substances; Z91.013 Allergy to seafood; Z91.048 Other nonmedicinal substance allergy status
CPT/HCPCS: 74176; 96372; 99283

== ENCOUNTER 2020-07-17 14:52 | Emergency (ER) | payer SELFPAY ==
--- OUTSIDE RECORDS SUMMARY | 2020-07-17 14:54 | XMS REPORT | Clinical Summary ---
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
--- OUTSIDE RECORDS SUMMARY | 2020-07-17 14:55 | XMS REPORT | Continuity of Care Document ---
:1975 Author Organization [facility] t Address [address] [place] [address] Care Team Providers Name Role Phone Akua [...] Allergy 3-29 [facility] - 00:00: Medical 00 [place] Aspirin Propensi Active Anaphylaxis 2017- CH I [...] Alcohol Std Drinks Medica l Center History [facility] - [facility] Binge Medical Alessia ter Sex Assigned At [facility] kes [facility] Tobacco use and 2018-10-15 2018-10-15 Never used [facility] kes - exposure 00:00:00 00:00:00 Medical Center Alcohol intake 2018-10-15 2018-10-15 Current [facility] Nancy es - 00:00:00 00:00:00 non-drinker of Medical Ce nter alcohol (finding) History [facility] 2018-10-15 2018-10-[address] [facility] - Alcohol Frequency 00:00:00 00:00:00 [facility] Smoking Status Start Date Stop Date Source [facility] smoker [facility] Medications Ordered Filled [...] MOUTH Center ONCE A DAY. gabapentin Yes [id number] (three) [facility] (NEURONTIN) 1-07 [id number] times L ukes - 600 MG 00:00: 3D daily. Medical tablet 00 Center insulin Yes [address] [facility] [address] 70/30, 1-07 TID [facility] - insulin 00:00: Medical [facility]-insulin 00 Center regular, (HUMULIN 70/30 U-100 KWIKPEN) 100 unit/mL (70-30) InPn insulin pen Albuterol Albuterol Yes [place] 3 [address] [facility] Sulfate Sulfate [place] needed [facility] ent Clinics Procedures This patient has no known procedures. Plan of Care Planned Activity Planned Date Details Comments Source Future Scheduled 2020-03-[address] [facility] - Test 00:00:00 (#1) [code = [facility] INFLUENZA VACCINE (#1)] Future Scheduled [address] [facility] - Test 00:00:00 (procedure) [code = [facility] [id number]] Future Scheduled [address] [facility] - Test 00:00:00 malignant neoplasm Medical C enter of cervix (procedure) [code = 702654020] Encounters Start End Encounter Admission Attending Care Care Encounter Source Date/Time Date/Time Type Type Clinicians Facility Department ID 2020-04-19 2020-04-19 Outpatient [facility]LMLC [facility] [id number] [facility] 2020-03-09 2020-03-09 Outpatient Lore Valle [id number] [facility] 15:12:00 15:12:00 [facility] l Medicine Outpati ent Clinics 2020-03-05 2020-03-05 Outpatient Lore Valle [id number] 12:02:00 12:02:00 [facility] 2020-01-02 2020-01-02 Outpatient Lore Valle [id number] 11:40:00 11:40:00 [facility] Medicine Outpati ent Clinics 2019-09-27 2019-09-27 Emergency Carlie [facility] [id number] 11:40:39 18:09:00 Charity Conner Avani [id number] [place] [id number] [place] [id number] 2019-09-27 2019-09-27 Orders Doctor DUSTIN [id number] 00:00:00 00:00:00 Only Unassigned, HARMAN [id number] [place] [id number] 2019-08-24 2019-08-24 [facility] [id number] 10:44:00 10:44:00 [facility] 2019-08-13 2019-08-13 [facility] [id number] 11:49:00 12:46:00 Ramya Grimes Avani [id number] [place] [id number] [place] [id number] 2019-08-13 2019-08-13 Orders Doctor DUSTIN [id number] 00:00:00 00:00:00 Only Unassigned, HAR[place] [id number] [place] [id number] 2019-08-11 2019-08-11 [facility] [id number] 14:00:00 14:00:00 [facility] Medicine Outpati ent Clinics 2019-08-04 2019-08-04 [facility] [id number] 10:42:00 10:42:00 [facility] Medicine Outpati ent Clinics 2019-04-14 2019-04-14 [facility] [id number] 14:40:00 14:40:00 [facility] Medicine Outpati ent Clinics 2019-04-11 2019-04-11 [facility] [id number] 11:12:00 11:12:00 [address] [place] [facility] - Drive [facility] Medicine Medicine Outpati ent Clinics 2019-03-03 2019-03-03 [facility] [id number] 16:39:00 16:39:00 t [facility] [address] [facility] Medicine l Medicine Outpati ent Clinics 2019-02-03 2019-02-03 [facility] [id number] 11:00:00 11:00:[address] t [facility] [address] [facility] Medicine l Medicine Outpati ent Clinics 2018-09-17 2018-09-17 [facility] [id number] 12:26:00 12:26:00 t [facility] Medicine l Medicine Outpati ent Clinics 2018-09-09 2018-09-09 [facility] [id number] 13:30:00 13:30:00 t [facility] Medicine Medicine Outpati ent Clinics 2018-04-23 2018-04-23 [facility] [id number] 10:00:00 10:00:00 t [facility] Medicine Medicine Outpati ent Clinics 2018-04-22 2018-04-22 [facility] [id number] 14:14:00 14:14:00 t [facility] Medicine Medicine Outpati ent Clinics 2018-04-20 2018-04-20 [facility] [id number] 10:02:00 10:02:00 t [facility] Medicine Medicine Outpati ent Clinics 2018-04-19 2018-04-19 [facility] [id number] 16:33:00 16:33:00 t [facility] Medicine Medicine Outpati ent Clinics 2018-04-16 2018-04-16 [facility] [id number] 09:30:00 09:30:00 t [facility] 2018-02-19 2018-02-19 Outpatient Lore Valle [id number] 10:45:00 10:45:00 t [facility] 2017-12-07 2017-12-07 Outpatient Lore Torrezt [id number] 08:36:00 08:36:00 t [facility]gent [facility] 2017-11-13 2017-11-13 Outpatient Lore Torrezt [id number] 10:30:00 10:30:00 t [facility] Results Test Description Test Time Test Comments Results Result Comments Source SCREEN, URINE 2018-10-15 15:27:00 Test Item Value Reference Range Interpretation Comme nts TEST URINE (BEAKER) (test code = 583) Negative URINALYSIS WITH MICROSCOPIC IF [id number] 14:55:00 Test Item Value Reference Range Interpretation [...] = 2795) RAD, CHEST, 1 VIEW, NON [id number] 13:46:00Reason for exam:->chest painIs the patient ?->UnknownShould this be performed at the [facility]?->YesFINAL REPORT Chest, AP view. History: Chest pain. Comparison: None available. Discussion: The cardiomediastinal silhouette and pulmonary vasculature are within normal limits. The lungs are clear without evidence of consolidation or effusion. There are no acute osseous abnormalities. The soft tissues are unremarkable. IMPRESSION: No acute cardiopulmonary abnormality. Signed: Kirstie Ozuna MDReport Verified Date/Time: 10/15/2018 13:46:07 Reading Location: [facility] B-TYPE NATRIURETIC FACTOR (BNP)2018-10-15 13:45:00 Test Item Value Reference Range Interpretation Comments B-TYPE NATRIURETIC PEPTIDE (BEAKER) < pg/mL 0-100 (test code = 700) TROPONIN [id number] 13:42:00 Test Item Value Reference Range Interpretation [...] failure, acidosis, acute neurological disease, and persistent tachyarrhythmia.[id number] 13:36:00 Test Item Value Reference Range Interpretation Comments MAGNESIUM (BEAKER) (test code = 1.9 mg/dL 1.6-2.6 627) COMPREHENSIVE METABOLIC [id number] 13:36:00 Test Item Value Reference Range Interpretation [...] ATED GFR. CBC W/PLT COUNT & AUTO [id number] 13:09:00 Test Item Value Reference Range Interpretation [...] % 0-1 PERCENT (BEAKER) (test code = 4574)
--- NOTE | 2020-07-17 15:59 | RAD REPORT ---
EXAM DESCRIPTION: CT - Head C Spine Mpr Wo Con - 07/17/2020 3:43 pm CLINICAL HISTORY: Head and neck injury status post fall. Head and neck pain COMPARISON: 2019 TECHNIQUE: Computed axial tomography of the head and cervical spine was obtained. Sagittal and coronal reconstruction was performed. All CT scans are performed using dose optimization technique as appropriate and may include automated exposure control or mA/KV adjustment according to patient size. FINDINGS: An intracranial bleed is not seen. The ventricles are normal in caliber. An extra-axial fl uid collection is not noted.Fluid within the visualized sinuses and mastoids is not seen A cervical fracture is not visualized. No dislocation is noted. 10 millimeter stippled lucency C6 kevin tebral body unchanged probably hemangioma IMPRESSION: No acute intracranial abnormality is seen. A cervical fracture is not visualized. If the patient continues to have symptoms to suggest intracra nial /spinal cord pathology then MRI would be recommended
--- NOTE | 2020-07-17 16:14 | ER ---
Nurse's Notes [facility] Name: Britt Bower Age: 45 yrs Sex: Female : 1975 Arrival Date: 07/17/2020 Time: 14:55 Bed 8 Private MD: Diagnosis: Superficial injury of head Presentation: 07/17 15:21 Chief complaint: Patient states: Slipped on wet floor today at noon. Hit head on edge ll1 of table. Stated she couldn't talk or move well for about 15-20 minutes after the accident. + nausea. Coronavirus screen: Client denies travel out of the [place] in the last 14 days. At this time, the client does not indicate any symptoms associated with coronavirus-19. Ebola Screen: Patient denies travel to an Ebola-affected area in the 21 days before illness onset. Initial Sepsis Screen: Does the patient meet any 2 criteria? No. Patient's initial sepsis screen is negative. Does the patient have a suspected source of infection? Yes: Other: head injury. Risk Assessment: Do you want to hurt yourself or someone else? Patient reports no desire to harm self or others. Onset of symptoms was July 17, 2020. 15:21 Method Of Arrival: Ambulatory ll1 15:21 Acuity: [facility] 3 ll1 Historical: - Allergies: 15:21 Amoxicillin; ll1 15:21 Aspirin; ll1 15:21 Coconut; ll1 15:21 diazepam; ll1 15:21 Iodine; ll1 15:21 Morphine; ll1 15:21 Ondansetron HCl; ll1 15:21 PENICILLINS; ll1 15:21 Piperacillin Sodium; ll1 15:21 shrimp; ll1 15:21 tazobactam sodium; ll1 15:21 Zofran; ll1 - PMHx: 15:21 Asthma; Diabetes - IDDM; epilepsy; history of stroke; Hypertension; neuropathy; ll1 - PSHx: 15:21 Hysterectomy; Cholecystectomy; breat sx; ll1 - Immunization history:: Flu vaccine is up to date. - Social history:: Smoking status: Patient denies any tobacco usage or history of. Screenin:00 Abuse screen: Denies threats or abuse. Denies injuries from another. Nutritional ss screening: No deficits noted. Tuberculosis screening: Never had TB. Fall Risk None identified. Assessment: 16:00 General: Appears in no apparent distress. comfortable, Behavior is calm, cooperative. ss Pain: Complains of pain in head Pain currently is 6 out of 10 on a pain scale. Quality of pain is described as tender, Is continuous. Neuro: Level of Consciousness is awake, alert, obeys commands, Oriented to person, place, time, situation, Gait is steady, Speech is normal, Facial symmetry appears normal, Pupils are PERRLA. Cardiovascular: Capillary refill < 3 seconds is brisk in bilateral fingers. Respiratory: Airway is patent Respiratory effort is even, unlabored, Respiratory pattern is regular, symmetrical. GI:. EENT: Oral mucosa is moist. Throat is clear. Derm: Skin is intact, is healthy with good turgor, Skin is dry, Skin is pink, warm \T\ dry. normal. Vital Signs: 15:21 BP 118 / 84; Pulse 78; Resp 17; Temp 97.2; Pulse Ox 97% ; Weight 101.6 kg; Height 5 ft. ll1 0 in. (152.40 cm); Pain 6/10; 15:21 Body Mass Index 43.75 (101.60 kg, 152.40 cm) ll1 ED Course: 14:55 Patient arrived in ED. ag5 15:20 Arm band placed on. ll1 15:24 Triage completed. ll1 15:29 Ny [facility]C [facility] kb 15:29 Mono Jordan MD is Attending Physician. kb 15:43 CT Head C Spine In Process Unspecified. EDMS 16:00 Patient has correct armband on for positive identification. Bed in low position. Call ss light in reach. 16:21 Cindy Raman RN is Primary Nurse. ss 16:23 No provider procedures requiring assistance completed. Patient did not have IV access ss during this emergency room visit. Administered Medications: No medications were administered Outcome: 16:13 Discharge ordered by . kb 16:23 Discharged to home ambulatory. ss 16:23 Condition: good 16:23 Discharge instructions given to patient, family, Instructed on discharge instructions, follow up and referral plans. medication usage, Demonstrated understanding of instructions, follow-up care. 16:23 Patient left the ED. ss Signatures: Dispatcher [employer] EDNE Ny Johnson FNP-C FNP-Ckb Smirch, Shelby, RN RN ss Maxine West ag5 Tomi Eden, RN RN ll1
--- NOTE | 2020-07-17 16:14 | EDPHYS ---
Physician Documentation [facility] Name: Britt Bower Age: 45 yrs Sex: Female : 1975 Arrival Date: 07/17/2020 Time: 14:55 Bed 8 Private MD: ED Physician Mono Jordan HPI: 07/17 17:23 This 45 yrs old Female presents to ER via Ambulatory with complaints of Fall kb Injury. 17:23 Details of fall: The patient fell from an upright position, while walking. Onset: The kb symptoms/episode began/occurred today, at 12:00. Associated injuries: The patient sustained injury to the head, hematoma, pain. Severity of symptoms: At their worst the symptoms were moderate, in the emergency department the symptoms are unchanged. The patient has not experienced similar symptoms in the past. The patient has not recently seen a physician. Pt reports she slipped and fell on wet floor around 1200. States she hit her head on a piece of furniture. Reports nausea, headache. Denies LOC. States she was dazed afterwards and unable to speak for a few minutes. States she is now having pain to neck, "like it's in a vice.". Historical: - Allergies: 15:21 Amoxicillin; ll1 15:21 Aspirin; ll1 15:21 Coconut; ll1 15:21 diazepam; ll1 15:21 Iodine; ll1 15:21 Morphine; ll1 15:21 Ondansetron HCl; ll1 15:21 PENICILLINS; ll1 15:21 Piperacillin Sodium; ll1 15:21 shrimp; ll1 15:21 tazobactam sodium; ll1 15:21 Zofran; ll1 - PMHx: 15:21 Asthma; Diabetes - IDDM; epilepsy; history of stroke; Hypertension; neuropathy; ll1 - PSHx: 15:21 Hysterectomy; Cholecystectomy; breat sx; ll1 - Immunization history:: Flu vaccine is up to date. - Social history:: Smoking status: Patient denies any tobacco usage or history of. ROS: 17:21 Constitutional: Negative for fever, chills, and weight loss, Eyes: Negative for injury, kb pain, redness, and discharge, Cardiovascular: Negative for chest pain, palpitations, and edema, Respiratory: Negative for shortness of breath, cough, wheezing, and pleuritic chest pain, Abdomen/GI: Negative for abdominal pain, vomiting, diarrhea, and constipation. +nausea Back: Negative for injury and pain, MS/Extremity: Negative for injury and deformity, Skin: Negative for injury, rash, and discoloration. 17:21 Neck: Positive for pain with movement, pain at rest. 17:21 Neuro: Positive for headache. Exam: 17:22 Constitutional: This is a well developed, well nourished patient who is awake, alert, kb and in no acute distress. Eyes: Pupils equal round and reactive to light, extra-ocular motions intact. Lids and lashes normal. Conjunctiva and sclera are non-icteric and not injected. Cornea within normal limits. Periorbital areas with no swelling, redness, or edema. Chest/axilla: Normal chest wall appearance and motion. Nontender with no deformity. No lesions are appreciated. Cardiovascular: Regular rate and rhythm with a normal S1 and S2. No gallops, murmurs, or rubs. Normal PMI, no JVD. No pulse deficits. Respiratory: Lungs have equal breath sounds bilaterally, clear to auscultation and percussion. No rales, rhonchi or wheezes noted. No increased work of breathing, no retractions or nasal flaring. Abdomen/GI: Soft, non-tender, with normal bowel sounds. No distension or tympany. No guarding or rebound. No evidence of tenderness throughout. Skin: Warm, dry with normal turgor. Normal color with no rashes, no lesions, and no evidence of cellulitis. MS/ Extremity: Pulses equal, no cyanosis. Neurovascular intact. Full, normal range of motion. Neuro: Awake and alert, GCS 15, oriented to person, place, time, and situation. Cranial nerves II-XII grossly intact. Motor strength 5/5 in all extremities. Sensory grossly intact. Cerebellar exam normal. Normal gait. 17:22 Head/face: Noted is no obvious of injury or deformity except hematoma, that is mild, of the left frontal area. Vital Signs: 15:21 BP 118 / 84; Pulse 78; Resp 17; Temp 97.2; Pulse Ox 97% ; Weight 101.6 kg; Height 5 ft. ll1 0 in. (152.40 cm); Pain 6/10; 15:21 Body Mass Index 43.75 (101.60 kg, 152.40 cm) ll1 MDM: 15:29 Patient medically screened. kb 17:21 Data reviewed: vital signs, nurses notes. Data interpreted: Pulse oximetry: on room air kb is 97 %. Interpretation: normal. Counseling: I had a detailed discussion with the patient and/or guardian regarding: the historical points, exam findings, and any diagnostic results supporting the discharge/admit diagnosis, radiology results, the need for outpatient follow up, a family practitioner, to return to the emergency department if symptoms worsen or persist or if there are any questions or concerns that arise at home. 07/17 15:30 Order name: CT Head C Spine; Complete Time: 16:05 kb Administered Medications: No medications were administered Disposition: 07/17/20 16:13 Discharged to Home. Impression: Superficial injury of head. - Condition is Stable. - Discharge Instructions: Hematoma, Jzmj-[id number]-Hjtr, Head Injury, Adult, Kcby-oy-Roby. - Medication Reconciliation Form, Thank You Letter, Antibiotic Education, Prescription Opioid Use form. - Follow up: Emergency Department; When: As needed; Reason: Worsening of condition. Follow up: Private Physician; When: 2 - 3 days; Reason: Recheck today's complaints, Continuance of care, Re-evaluation by your physician. Addendum: 07/23/2020 19:43 Co-signature as Attending Physician, Mono Jordan MD. r n Signatures: Dispatcher [employer] EDMS Ny Johnson, [employer]AL [employer]SHAL-C [employer]SHAL-Ckb Mono Jordan MD MD rn Smirch, Shelby, RN RN ss Lewis, Lynsay, RN RN ll1 Corrections: (The following items were deleted from the chart) 07/17 16:23 16:13 07/17/2020 16:13 Discharged to Home. Impression: Superficial injury of head. ss Condition is Stable. Forms are Medication Reconciliation Form, Thank You Letter, Antibiotic Education, Prescription Opioid Use. Follow up: Emergency Department; When: As needed; Reason: Worsening of condition. Follow up: Private Physician; When: 2 - 3 days; Reason: Recheck today's complaints, Continuance of care, Re-evaluation by your physician. kb 17:25 17:23 Pt reports she slipped and fell on wet floor around 1200. States she hit her head kb on a piece of furniture. Reports nausea, headache. Denies LOC. States she was dazed afterwards and unable to speak for a few minutes. . kb
[2020-07-17 16:31] VITALS: BP 118/84; TEMP 97.2; O2SAT 97
== END 2020-07-17 16:23 | disposition home or self-care (01) ==
LOC: ER 14:52
DX: S00.83XA Contusion of other part of head, initial encounter (principal); W01.10XA Fall on same level from slipping, tripping and stumbling with subsequent striking against unspecified object, initial encounter; Y93.01 Activity, walking, marching and hiking; Y92.9 Unspecified place or not applicable; Z88.0 Allergy status to penicillin; Z88.1 Allergy status to other antibiotic agents; Z88.5 Allergy status to narcotic agent; Z88.6 Allergy status to analgesic agent; Z88.8 Allergy status to other drugs, medicaments and biological substances; Z91.013 Allergy to seafood; I10 Essential (primary) hypertension
CPT/HCPCS: 70450; 72125; 99283

== ENCOUNTER 2020-08-06 19:57 | Emergency (ER) | payer SELFPAY ==
--- OUTSIDE RECORDS SUMMARY | 2020-08-06 19:59 | XMS REPORT | Continuity of Care Document ---
:[address] [facility] t Address [address] [place] [address] Care Team Providers Name Role Phone Akua [...] Allergy 3-29 [facility] - 00:[facility]: Medical [facility] Aspirin Propensi Active Anaphylaxis 2017- [facility] ty to 4-27 [facility] - adverse 00:00: Medical reaction 00 Center s Diazepam Propensi Active Anaphylaxis 2018- [facility] ty to 4-27 [facility] - adverse 00:00: Medical reaction 00 Center s Iodine Propensi Active Anaphylaxis 2018-[address] [facility] [address] ty to 4-27 [facility] - adverse 00:00: Medical reaction 00 Center s Penicill Propensi Active Anaphylaxis 2017- [facility] in ty to 11-13 [facility] - adverse 00:00: Medical reaction 00 Center s Ondanset Propensi Active Anaphylaxis 2017- [facility] sek[facility] ty to [...] Date Stop Date Quantity Comments Source History [facility] - Alcohol Std Drinks Medica l Center History [facility] - Alcohol Binge Medical Alessia ter Sex Assigned At [facility] kes [facility] Tobacco use and 2018-10-15 2018-10-[address] [facility] kes - exposure 00:00:00 00:00:00 [facility] Alcohol intake 2018-10-15 2018-10-15 Current [facility] Nancy es - 00:00:00 00:00:00 non-drinker of Medical Ce nter alcohol (finding) History [facility] 2018-10-15 2018-10-[address] [facility] - Alcohol Frequency 00:00:00 00:00:00 [facility] Smoking Status Start Date Stop Date Source [facility] Medications Ordered Filled Start Stop Current Ordering Indication Dosage Frequency Signature Comments Components Source Medication Medication Date Date Medication? Clinician (SIG) Name Name lisinopril- Yes 1{tbl} QD Take [address] hydroCHLORO 3-29 tablet by Nancy es - thiazide 11:40: mouth Medical (ZIDE,Z 24 daily. Center ESTORETIC) 20-25 mg per [...] MOUTH Center ONCE A DAY. gabapentin Yes [id number] 3 (three) [facility] (NEURONTIN) 1-07 [id number] times L ukes - 600 MG 00:00: 3D daily. Medical tablet 00 Center insulin 2015- Yes [address] 70/30, 1-07 TID [facility] - insulin 00:00: Medical NPH-insulin 00 Center regular, (HUMULIN 70/30 U-100 KWIKPEN) 100 unit/mL (70-30) InPn insulin pen Albuterol Albuterol Yes [place] 3 ml [address] [facility] Sulfate Sulfate [place] needed [facility] ent Clinics Procedures This patient has no known procedures. Plan of Care Planned Activity Planned Date Details Comments Source Future Scheduled 2020-03-[address] [facility] - Test 00:00:00 (#1) [code = [facility] INFLUENZA VACCINE (#1)] Future Scheduled [address] [facility] - Test 00:00:00 (procedure) [code = [facility] [id number]] Future Scheduled [address] [facility] - Test 00:00:00 malignant neoplasm Medical C enter of cervix (procedure) [code = 284463268] Encounters Start End Encounter Admission Attending Care Care Encounter Source Date/Time Date/Time Type Type Clinicians Facility Department ID 2020-04-19 2020-04-19 Outpatient [facility]MLC [facility] [id number] [facility] 2020-03-09 2020-03-09 Outpatient Lore Valle [id number] 15:12:00 15:12:00 [facility] 2020-03-05 2020-03-05 Outpatient Lore Valle [id number] [address] 12:02:00 12:02:00 [facility] 2020-01-02 2020-01-02 Outpatient Lore Valle [id number] [address] 11:40:00 11:40:00 [facility] Medicine Outpati ent Clinics 2019-09-27 2019-09-27 Emergency cyndi [facility] [id number] 11:40:39 18:09:00 Charity Conner Avani [id number] [place] [id number] [place] [id number] 2019-09-27 2019-09-27 Orders Doctor DUSTIN [id number] 00:00:00 00:00:00 Only Unassigned, HARMAN [id number] [place] [id number] 2019-08-24 2019-08-24 [place] [id number] 10:44:00 10:44:00 [facility] 2019-08-13 2019-08-13 Emergency [facility] [id number] 11:49:00 12:46:00 Ramya Grimes Avani [id number] [place] [id number] [place] [id number] 2019-08-13 2019-08-13 Orders Doctor DUSTIN [id number] 00:00:00 00:00:00 Only Unassigned, HARMAN [id number] [place] [id number] 2019-08-11 2019-08-11 [facility] [id number] 14:00:00 14:00:00 [facility] Medicine Medicine Outpati ent Clinics 2019-08-04 2019-08-04 [place] [place] [id number] 10:42:00 10:42:00 [facility] Medicine Outpati ent Clinics 2019-04-14 2019-04-14 [facility] [place] [id number] 14:40:00 14:40:00 [facility] Medicine Outpati ent Clinics 2019-04-11 2019-04-11 [place] [place] [place] [id number] 11:12:00 11:12:[address] - Drive [facility] Medicine l Medicine Outpati ent Clinics 2019-03-03 2019-03-03 [facility] [place] [id number] 16:39:00 16:39:00 t [facility] s Road [facility] Medicine l Medicine Outpati ent Clinics 2019-02-03 2019-02-03 [facility] [id number] 11:00:00 11:00:00 t [facility] s - Road [facility] Medicine l Medicine Outpati ent Clinics 2018-09-17 2018-09-17 [facility] [id number] 12:26:00 12:26:00 t [facility] s - Road [facility] Medicine l Medicine Outpati ent Clinics 2018-09-09 2018-09-09 [facility] [id number] 13:30:00 13:30:00 t [facility] s Road [facility] Medicine l Medicine Outpati ent Clinics 2018-04-23 2018-04-23 [facility] [id number] 10:00:00 10:00:00 t [facility] Road [facility] Medicine Medicine Outpati ent Clinics 2018-04-22 2018-04-22 [facility] [id number] 14:14:00 14:14:00 t [facility] Road [facility] Medicine Medicine Outpati ent Clinics 2018-04-20 2018-04-20 [facility] [id number] 10:02:00 10:02:00 t [facility] s Road [facility] Medicine Medicine Outpati ent Clinics 2018-04-19 2018-04-19 [facility] [id number] 16:33:00 16:33:00 t [facility] s Road [facility] Medicine l Medicine Outpati ent Clinics 2018-04-16 2018-04-16 [facility] [id number] 09:30:00 09:30:00 t [facility] 2018-02-19 2018-02-19 Outpatient Lore Valle [id number] 10:45:00 10:45:00 t [facility] 2017-12-07 2017-12-07 Outpatient Lore Torrezt [id number] 08:36:00 08:36:00 t [facility] 2017-11-13 2017-11-13 Outpatient Lore Torrezt [id number] 10:30:00 10:30:00 t [facility] Results Test Description Test Time Test Comments Results Result Comments Source SCREEN, URINE 2018-10-15 15:27:00 Test Item Value Reference Range Interpretation Comme nts TEST URINE (BEAKER) (test code = 583) Negative URINALYSIS WITH MICROSCOPIC IF [id number] 14:55:00 Test Item Value Reference Range Interpretation [...] = 2795) RAD, CHEST, 1 VIEW, NON [id number] 13:46:00Reason for exam:->chest painIs the patient ?->UnknownShould this be performed at the [facility]?->YesFINAL REPORT Chest, AP view. History: Chest pain. Comparison: None available. Discussion: The cardiomediastinal silhouette and pulmonary vasculature are within normal limits. The lungs are clear without evidence of consolidation or effusion. There are no acute osseous abnormalities. The soft tissues are unremarkable. IMPRESSION: No acute cardiopulmonary abnormality. Signed: Kirstie Ozuna MDReport Verified Date/Time: 10/15/2018 13:46:07 Reading Location: [facility] B-TYPE NATRIURETIC FACTOR (BNP)2018-10-15 13:45:00 Test Item Value Reference Range Interpretation Comments B-TYPE NATRIURETIC PEPTIDE (BEAKER) < pg/mL 0-100 (test code = 700) TROPONIN [id number] 13:42:00 Test Item Value Reference Range Interpretation [...] failure, acidosis, acute neurological disease, and persistent tachyarrhythmia.[id number] 13:36:00 Test Item Value Reference Range Interpretation Comments MAGNESIUM (BEAKER) (test code = 1.9 mg/dL 1.6-2.6 627) COMPREHENSIVE METABOLIC [id number] 13:36:00 Test Item Value Reference Range Interpretation [...] ATED GFR. CBC W/PLT COUNT & AUTO [id number] 13:09:00 Test Item Value Reference Range Interpretation [...] % 0-1 PERCENT (BEAKER) (test code = 1657)
--- OUTSIDE RECORDS SUMMARY | 2020-08-06 19:59 | XMS REPORT | Clinical Summary ---
:1975 Author Organization [facility] Address [address] [place] [address] Care Team Providers Name Role Phone Akua Hunt UNIFORMER Primary Care Provider Allergies Active Allergy Reactions [...] VACCINE (#1) 2020 Results Not on fileafter 08/06/2019
--- NOTE | 2020-08-06 20:39 | RAD REPORT ---
EXAM DESCRIPTION: CT - Head Brain Wo Cont - 08/06/2020 8:28 pm CLINICAL HISTORY: Headache COMPARISON: June 2020 TECHNIQUE: Computed axial tomography of the head was obtained. IV contrast was not requested. All CT scans are performed using dose optimization technique as appropriate and may include automated exposure control or mA/KV adjustment according to patient size. FINDINGS: An intracranial bleed is not seen . The ventricles are normal in caliber. No extra-axial fluid collection is noted. Fluid within the sinuses/ mastoids is not seen. IMPRESSION: No acute intracranial abnormality is seen. If patient's symptoms persist MRI of the bra in would be recommended.
--- NOTE | 2020-08-06 20:53 | EDPHYS ---
Physician Documentation [facility] Name: Britt Bower Age: 45 yrs Sex: Female : 1975 Arrival Date: 08/06/2020 Time: 19:59 Bed 25 Private MD: ED Physician Niki Chiu HPI: 08/06 20:49 This 45 yrs old Female presents to ER via Ambulatory with complaints of Head kb Injury-Adult, Nausea. 20:49 The patient or guardian reports pain, tenderness. The complaints affect the left kb frontal area. Context of injury: The problem was sustained at home, resulted from a fall. Onset: The symptoms/episode began/occurred 2 week(s) ago. Associated signs and symptoms: Loss of consciousness: This patient did not experience any loss of consciousness. Pertinent positives: headache. Severity of symptoms: At their worst the symptoms were mild, moderate, in the emergency department the symptoms have improved. The patient has not experienced similar symptoms in the past. The patient has been recently seen by a physician:. Pt fell a few weeks ago and struck her head. Came here for evaluation and CT was negative. Pt states she still has the bump on her head and it is tender to touch, now with sore. States she gets intermittent headaches and lightheadedness since the fall. . 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 - Social history:: Smoking status: Patient denies any tobacco usage or history of. ROS: 20:48 Constitutional: Negative for fever, chills, and weight loss, Cardiovascular: Negative kb for chest pain, palpitations, and edema, Respiratory: Negative for shortness of breath, cough, wheezing, and pleuritic chest pain, MS/Extremity: Negative for injury and deformity. 20:48 Abdomen/GI: Positive for nausea. 20:48 Skin: Positive for hematoma. 20:48 Neuro: Positive for headache. Exam: 20:48 Constitutional: This is a well developed, well nourished patient who is awake, alert, kb and in no acute distress. Chest/axilla: Normal chest wall appearance and motion. Nontender with no deformity. No lesions are appreciated. Cardiovascular: Regular rate and rhythm with a normal S1 and S2. No gallops, murmurs, or rubs. Normal PMI, no JVD. No pulse deficits. Respiratory: Lungs have equal breath sounds bilaterally, clear to auscultation and percussion. No rales, rhonchi or wheezes noted. No increased work of breathing, no retractions or nasal flaring. Abdomen/GI: Soft, non-tender, with normal bowel sounds. No distension or tympany. No guarding or rebound. No evidence of tenderness throughout. Skin: Warm, dry with normal turgor. Normal color with no rashes, no lesions, and no evidence of cellulitis. MS/ Extremity: Pulses equal, no cyanosis. Neurovascular intact. Full, normal range of motion. Neuro: Awake and alert, GCS 15, oriented to person, place, time, and situation. Cranial nerves II-XII grossly intact. Motor strength 5/5 in all extremities. Sensory grossly intact. Cerebellar exam normal. Normal gait. 20:48 Head/face: Noted is no obvious of injury or deformity except hematoma, that is mild, of the left frontal area, of the with small sore . Vital Signs: 20:02 BP 111 / 91; Pulse 67; Resp 16 S; Temp 97.4(TE); Pulse Ox 96% on R/A; Weight 103.42 kg ca1 (R); Height 5 ft. 0 in. (152.40 cm) (R); Pain 8/10; 20:06 BP 109 / 82; ca1 20:02 Body Mass Index 44.53 (103.42 kg, 152.40 cm) ca1 Bryant Coma Score: 20:02 Eye Response: spontaneous(4). Verbal Response: oriented(5). Motor Response: obeys ca1 commands(6). Total: 15. 20:48 Eye Response: spontaneous(4). Verbal Response: oriented(5). Motor Response: obeys kb commands(6). Total: 15. 20:49 Eye Response: spontaneous(4). Verbal Response: oriented(5). Motor Response: obeys kb commands(6). Total: 15. MDM: 20:31 Patient medically screened. kb 20:48 Data reviewed: vital signs, nurses notes. Data interpreted: Pulse oximetry: on room air kb is 96 %. Interpretation: normal. Counseling: I had a detailed discussion with the patient and/or guardian regarding: the historical points, exam findings, and any diagnostic results supporting the discharge/admit diagnosis, radiology results, the need for outpatient follow up, a family practitioner, to return to the emergency department if symptoms worsen or persist or if there are any questions or concerns that arise at home. 08/06 20:15 Order name: CT Head Brain wo Cont; Complete Time: 20:48 ma2 Administered Medications: 21:05 Drug: Weston (7.5 mg-325 mg) 1 tabs Route: PO; zb 21:20 Follow up: Response: Medication administered at discharge. zb Disposition: 21:52 Co-signature as Attending Physician, Niki Chiu MD. ma2 Disposition: 08/06/20 20:52 Discharged to Home. Impression: Superficial injury of head, Headache. - Condition is Stable. - Discharge Instructions: Hematoma, Pfed-ke-Fyow, Head Injury, Adult, Ivxr-cp-Cple. - Medication Reconciliation Form, Thank You Letter, Antibiotic Education, Prescription Opioid Use form. - Follow up: Emergency Department; When: As needed; Reason: Worsening of condition. Follow up: Private Physician; When: 2 - 3 days; Reason: Recheck today's complaints, Continuance of care, Re-evaluation by your physician. Signatures: Dispatcher [employer] EDNy Anderson, HAROONC YI-Niki Jeffers MD MD ma2 Christal Suarez RN RN ca1 Brown, Zipporah, RN RN zb Corrections: (The following items were deleted from the chart) 21:22 20:52 08/06/2020 20:52 Discharged to Home. Impression: Superficial injury of head; zb Headache. Condition is Stable. Forms are Medication Reconciliation Form, Thank You Letter, Antibiotic Education, Prescription Opioid Use. Follow up: Emergency Department; When: As needed; Reason: Worsening of condition. Follow up: Private Physician; When: 2 - 3 days; Reason: Recheck today's complaints, Continuance of care, Re-evaluation by your physician. kb
--- NOTE | 2020-08-06 20:53 | ER ---
Nurse's Notes [facility] Name: Britt Bower Age: 45 yrs Sex: Female : 1975 Arrival Date: 08/06/2020 Time: 19:59 Bed 25 Private MD: Diagnosis: Superficial injury of head;Headache Presentation: 08/06 20:02 Chief complaint: Patient states: Had a concussion late last month. Been having headache ca1 and lightheaded. But the nausea started 2 days ago with the headache and still lightheaded. The headache is on the L side. Coronavirus screen: Client denies travel out of the [place] in the last 14 days. headache, nausea, Client presents with at least one sign or symptom that may indicate coronavirus-19. Standard/surgical mask placed on the client. Provider contacted for isolation considerations. Ebola Screen: Patient negative for fever greater than or equal to 101.5 degrees Fahrenheit, and additional compatible Ebola Virus Disease symptoms Patient denies exposure to infectious person. Patient denies travel to an Ebola-affected area in the 21 days before illness onset. No symptoms or risks identified at this time. Initial Sepsis Screen: Does the patient meet any 2 criteria? No. Patient's initial sepsis screen is negative. Does the patient have a suspected source of infection? No. Patient's initial sepsis screen is negative. Risk Assessment: Do you want to hurt yourself or someone else? Patient reports no desire to harm self or others. 20:02 Method Of Arrival: Ambulatory ca1 20:02 Acuity: [facility] 3 ca1 21:21 Onset of symptoms is unknown. zb 21:21 Mechanism of Injury: resulted from. 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 - Social history:: Smoking status: Patient denies any tobacco usage or history of. Screenin:40 Abuse screen: Denies threats or abuse. Denies injuries from another. Nutritional zb screening: No deficits noted. Tuberculosis screening: No symptoms or risk factors identified. Fall Risk None identified. Assessment: 20:20 General: Appears in no apparent distress. uncomfortable, Behavior is cooperative, zb appropriate for age, anxious. Pain: Complains of pain in left frontal area Pain does not radiate. Pain currently is 9 out of 10 on a pain scale. Quality of pain is described as aching. Neuro: Level of Consciousness is awake, alert, obeys commands, Oriented to person, place, time, situation, Display Maker are equal bilaterally Pupils are PERRLA. Cardiovascular: Patient's skin is warm and dry. Respiratory: Airway is patent Respiratory effort is even, unlabored, Respiratory pattern is regular, symmetrical. GI: No signs and/or symptoms were reported involving the gastrointestinal system. GI: GI: Abdomen is round non-distended, Reports nausea, vomiting. : No signs and/or symptoms were reported regarding the genitourinary system. EENT: No signs and/or symptoms were reported regarding the EENT system. Derm: Skin is intact, Skin is dry, Skin is normal, Skin temperature is warm. Musculoskeletal: Circulation, motion, and sensation intact. Capillary refill < 3 seconds, in bilateral fingers. Range of motion: intact in all extremities, Swelling present in left temporal area. 21:00 Reassessment: Patient appears in no apparent distress at this time. Patient and/or zb family updated on plan of care and expected duration. Pain level reassessed. Patient is alert, oriented x 3, equal unlabored respirations, skin warm/dry/pink. pain 8/10. given pain medication per MD. 21:21 Reassessment: gait even, steady. patient able to ambulate to the car. driving. zb Vital Signs: 20:02 BP 111 / 91; Pulse 67; Resp 16 S; Temp 97.4(TE); Pulse Ox 96% on R/A; Weight 103.42 kg ca1 (R); Height 5 ft. 0 in. (152.40 cm) (R); Pain 8/10; 20:06 BP 109 / 82; ca1 20:02 Body Mass Index 44.53 (103.42 kg, 152.40 cm) ca1 Masood Coma Score: 20:02 Eye Response: spontaneous(4). Verbal Response: oriented(5). Motor Response: obeys ca1 commands(6). Total: 15. 20:48 Eye Response: spontaneous(4). Verbal Response: oriented(5). Motor Response: obeys kb commands(6). Total: 15. 20:49 Eye Response: spontaneous(4). Verbal Response: oriented(5). Motor Response: obeys kb commands(6). Total: 15. ED Course: 19:59 Patient arrived in ED. ag3 20:05 Triage completed. ca1 20:06 Arm band placed on right wrist. ca1 20:29 CT Head Brain wo Cont In Process Unspecified. EDMS 20:31 Ny Johnson FNP-C [facility]. kb 20:31 Niki Chiu MD is Attending Physician. kb 20:39 Sienna Burnette RN is Primary Nurse. zb 20:40 Patient has correct armband on for positive identification. Bed in low position. Call zb light in reach. Pulse ox on. NIBP on. Door closed. Noise minimized. Warm blanket given. 20:56 No provider procedures requiring assistance completed. Patient did not have IV access zb during this emergency room visit. Administered Medications: 21:05 Drug: [place] (7.5 mg-325 mg) 1 tabs Route: PO; zb 21:20 Follow up: Response: Medication administered at discharge. zb Outcome: 20:52 Discharge ordered by . kb 21:21 Discharged to home ambulatory. zb 21:21 Condition: stable 21:21 Discharge instructions given to patient, Instructed on discharge instructions, follow up and referral plans. Demonstrated understanding of instructions, follow-up care. 21:22 Patient left the ED. zb Signatures: Dispatcher [employer] EDNM Ny Johnson FNP-C FNP-Ckb Gomez, Alice ag3 Christal Suarez RN RN ca1 Sienna Burnette RN RN zb
[2020-08-06] MEDS ORDERED: HYDROCODONE/APAP 7.5/325 MG TAB ONE (21:18)
[2020-08-06 21:28] VITALS: BP 109/82
[2020-08-06 21:30] VITALS: TEMP 97.4; O2SAT 96
== END 2020-08-06 21:22 | disposition home or self-care (01) ==
LOC: ER 19:57
DX: R51.9 Headache, unspecified (principal); S09.90XA Unspecified injury of head, initial encounter; J45.909 Unspecified asthma, uncomplicated; E11.40 Type 2 diabetes mellitus with diabetic neuropathy, unspecified; Z79.4 Long term (current) use of insulin; G40.909 Epilepsy, unspecified, not intractable, without status epilepticus; Z86.73 Personal history of transient ischemic attack (TIA), and cerebral infarction without residual deficits; I10 Essential (primary) hypertension; W19.XXXA Unspecified fall, initial encounter
CPT/HCPCS: 70450; 99283

== ENCOUNTER 2020-09-29 12:44 | Emergency (ER) | payer SELFPAY ==
--- OUTSIDE RECORDS SUMMARY | 2020-09-29 12:46 | XMS REPORT | Continuity of Care Document ---
:1975 Author Organization [facility] t Address [address] [place] [place] [address] Care Team Providers Name Role Phone Akua Frias Primary Care Physician IGOR SANCHEZ Attending Clinician Unavailable Problems This patient has no known problems. Allergies, Adverse Reactions, Alerts Allergy Allergy Status Severity Reaction(s) Onset Inactive Treating Comm ents Source Name Type Date Date Clinician Coconut Drug Active 2019-[address] [facility] 3[facility]29 [facility]: Medical 00 [place] Morphine Drug Active 2018-[address] [facility] Intolera 3-29 [facility] nce 00:[facility]: Medical 00 [place] Shrimp Drug Active 2019-[address] [facility] [address] Allergy 3-29 [facility]: Medical 00 [place] Aspirin Propensi Active Anaphylaxis 2018-[address] [facility] 4 [facility] - adverse 00:[facility]: Medical reaction 00 Center s Diazepam Propensi Active Anaphylaxis 2018-[address] [facility] to 4-27 [facility] - adverse 00:00: Medical reaction 00 Center s Iodine Propensi Active Anaphylaxis 2018-[address] ty to 4-27 [facility] - adverse 00:00: Medical reaction 00 Center s Penicill Propensi Active Anaphylaxis 2018-[address] [facility] ty to 4-27 [facility] - adverse 00:00: Medical reaction 00 [place] s Ondanset Propensi Active Anaphylaxis 2018-[address] sekou Hcl ty to 4-27 [facility] - (Pf) adverse 00:00: Medical reaction 00 [place] s penicill Adverse Active anaphylaxis [facility] Iodine Adverse Active anaphylaxis [facility] Aspirin Adverse Active anaphylaxis [facility] Zofran Adverse Active anaphylaxis [facility] Diazepam Adverse Active anaphylaxis [facility] Social History Social Habit Start Date Stop Date Quantity Comments Source History [facility] Alcohol Std Drinks Medica l Center History [facility] - Alcohol Binge Medical Alessia ter Sex Assigned At [facility] kes Medical [place] Tobacco use and 2018-10-15 2018-10-15 Never used [facility] kes - exposure 00:00:00 00:00:00 [facility] Alcohol intake 2018-10-15 2018-10-[address] [facility] - 00:00:00 00:00:00 non-drinker of Medical Ce nter alcohol (finding) History [facility] 2018-10-15 2018-10-[address] [facility] - Alcohol Frequency 00:00:00 00:00:00 [facility] Smoking Status Start Date Stop Date Source [facility] [place] Medications Ordered Filled Start Stop Current Ordering Indication Dosage Frequency Signature Comments Components Source Medication Medication Date Date Medication? Clinician (SIG) Name Name lisinopril- Yes 1{tbl} QD Take [address] hydroCHLORO 3-[facility] 11:40: mouth Medical (ZIDE,Z 24 daily. Center ESTORETIC) 20-25 mg per tablet levETIRAcet Yes TAKE TWO [facility] am (KEPPRA) 3-07 (2) [facility] - 500 MG 00:00: TABLET(S) Medica l tablet 00 BY MOUTH Center EVERY TWELVE HOURS. lisinopril Yes TAKE ONE [facility] (PRINIVIL,Z 3-07 (1) [facility] - ESTRIL) 10 00:00: TABLET(S) Me dical MG tablet 00 BY MOUTH Center ONCE A DAY. gabapentin Yes Q.[id number] 3 (three) [facility] (NEURONTIN) 1-07 [id number] times L ukes - 600 MG 00:00: 3D daily. Medical tablet 00 Center insulin 2015 Yes [address] 70/30, 1-07 TID [facility] - insulin 00:00: Medical NPH-insulin 00 Center regular, (HUMULIN 70/30 U-100 KWIKPEN) 100 unit/mL (70-30) InPn insulin pen Albuterol Albuterol Yes [place] [address] [facility] Sulfate Sulfate [place] needed [facility] Procedures This patient has no known procedures. Plan of Care Planned Activity Planned Date Details Comments Source Future Scheduled 2020-03-[address] [facility] - Test 00:00:00 (#1) [code = [facility] INFLUENZA VACCINE (#1)] Future Scheduled [address] [facility] - Test 00:00:00 (procedure) [code = [facility] 72555464] Future Scheduled [address] [facility] - Test 00:00:00 malignant neoplasm Medical C enter of cervix (procedure) [code = 047510953] Encounters Start End Encounter Admission Attending Care Care Encounter Source Date/Time Date/Time Type Type Clinicians Facility Department ID 2020-09-20 2020-09-20 Outpatient [facility] [id number] [facility] 2020-04-19 2020-04-19 Outpatient [facility] [id number] [facility] 2020-03-09 2020-03-09 [facility] [id number] [address] 15:12:00 15:12:00 [facility] Medicine Medicine Outpati ent Clinics 2020-03-05 2020-03-05 [facility] [id number] [address] 12:02:00 12:02:00 [facility] Medicine Medicine Outpati ent Clinics 2020-01-02 2020-01-02 [facility] [id number] [address] 11:40:00 11:40:00 [facility] Medicine Medicine Outpati ent Clinics 2019-08-24 2019-08-24 [facility] [id number] 10:44:00 10:44:[address] [facility] [address] [facility] Medicine Medicine Outpati ent Clinics 2019-08-11 2019-08-11 [facility] [id number] 14:00:00 14:00:[address] [facility] [address] [facility] Medicine Outpati ent Clinics 2019-08-04 2019-08-04 [facility] [id number] 10:42:00 10:42:[address] [facility] Medicine l Medicine Outpati ent Clinics 2019-04-14 2019-04-14 [facility] [id number] 14:40:00 14:40:00 t [facility] Medicine Outpati ent Clinics 2019-04-11 2019-04-11 [facility] [id number] 11:12:00 11:12:[address] [facility] Medicine Outpati ent Clinics 2019-03-03 2019-03-03 [facility] [id number] 16:39:00 16:39:00 t [facility] Medicine Outpati ent Clinics 2019-02-03 2019-02-03 [facility] [id number] 11:00:00 11:00:00 t [facility] Medicine Outpati ent Clinics 2018-09-17 2018-09-17 [facility] [id number] 12:26:00 12:26:[address] [facility] [address] [facility] Medicine Medicine Outpati ent Clinics 2018-09-09 2018-09-09 [facility] [id number] 13:30:00 13:30:00 t [facility] Medicine Outpati ent Clinics 2018-04-23 2018-04-23 [facility] [id number] 10:00:00 10:00:00 t [facility] Medicine Outpati ent Clinics 2018-04-22 2018-04-22 [facility] [id number] 14:14:00 14:14:00 t [facility] ent Clinics 2018-04-20 2018-04-20 [facility] [id number] 10:02:00 10:02:00 t [facility] 2018-04-19 2018-04-19 [facility] [id number] 16:33:00 16:33:00 t [facility] ent Clinics 2018-04-16 2018-04-16 [facility] [id number] 09:30:00 09:30:00 [facility] 2018-02-19 2018-02-19 [facility] [id number] 10:45:00 10:45:00 t [facility] ent Clinics 2017-12-07 2017-12-07 [facility] [id number] 08:36:00 08:36:00 [facility] ent Clinics 2017-11-13 2017-11-13 [facility] [id number] 10:30:00 10:30:00 [facility] Results Test Description Test Time Test Comments Results Result Comments Source SCREEN, URINE 2018-10-15 15:27:00 Test Item Value Reference Range Interpretation Comme nts TEST URINE (BEAKER) (test code = 583) Negative URINALYSIS WITH MICROSCOPIC IF [id number] 14:55:00 Test Item Value Reference Range Interpretation [...] = 2795) RAD, CHEST, 1 VIEW, NON [id number] 13:46:00Reason for exam:->chest painIs the patient ?->UnknownShould this be performed at the [facility]?->YesFINAL REPORT Chest, AP view. History: Chest pain. [...] pg/mL 0-100 (test code = 700) TROPONIN [id number] 13:42:00 Test Item Value Reference Range Interpretation [...] failure, acidosis, acute neurological disease, and persistent tachyarrhythmia.[id number] 13:36:00 Test Item Value Reference Range Interpretation Comments MAGNESIUM (BEAKER) (test code = 1.9 mg/dL 1.6-2.6 627) COMPREHENSIVE METABOLIC [id number] 13:36:00 Test Item Value Reference Range Interpretation [...] ATED GFR. CBC W/PLT COUNT & AUTO [id number] 13:09:00 Test Item Value Reference Range Interpretation [...] % 0-1 PERCENT (BEAKER) (test code = 2801)
[2020-09-29 14:32] LABS: Urine Blood NEGATIVE (NEG); Urine Glucose NEGATIVE (NEG); Urine Protein NEGATIVE (NEG); Urine Specific Gravity >1.030 (1.005-1.030); Urine pH 5.5 (5.0-7.0)
[2020-09-29 14:42] LABS: Barbiturates NEGATIVE (NEGATIVE); Benzodiazepines NEGATIVE (NEGATIVE); Cocaine NEGATIVE (NEGATIVE); METHAMPHETAM NEGATIVE (NEGATIVE); Methadone NEGATIVE (NEGATIVE); Opiates NEGATIVE (NEGATIVE); Phencyclidine NEGATIVE (NEGATIVE); THC Cannibis NEGATIVE (NEGATIVE)
--- NOTE | 2020-09-29 14:45 | RAD REPORT ---
EXAM DESCRIPTION: CT - Head Brain Wo Cont - 09/29/2020 2:30 pm CLINICAL HISTORY: headache;Seizure Headache, drowsiness, seizure COMPARISON: Head Brain Wo Cont dated 08/06/2020; Facial Bones W/ Mpr dated 01/19/2019 TECHNIQUE: All CT scans are performed using dose optimization technique as appropriate and may inclu de automated exposure control or mA/KV adjustment according to patient size. FINDINGS: No intracranial hemorrhage, hydrocephalus or extra-axial fluid collection.No areas of brai n edema or evidence of midline shift. Mild mucosal thickening the right ethmoid air cells. The paranasal sinuses mastoids are otherwise dario ar. The calvarium is intact. IMPRESSION: No acute intracranial abnormality.
[2020-09-29 15:04] LABS: Absolute Lymphocytes (CBC) 1.8 K/uL (0.7-4.9); MPV 7.8 fL (7.6-11.3)
[2020-09-29 15:05] LABS: Protime INR 0.98
[2020-09-29 15:13] LABS: ALT/SGPT 30 U/L (12-78); Albumin 3.5 g/dL (3.4-5.0); Alkaline Phosphatase 83 U/L (45-117); BUN Blood Urea Nitrogen 21 mg/dL (7-18); Bicarbonate 27 mmol/L (21-32); Bilirubin Direct < 0.1 mg/dL (0-0.2); Bilirubin Total 0.2 mg/dL (0.2-1.0); Glucose Level 105 mg/dL (74-106); Protein, Total 7.3 g/dL (6.4-8.2); Sodium Level 140 mmol/L (136-145)
[2020-09-29 15:15] LABS: AST/SGOT 22 U/L (15-37); Potassium 3.9 mmol/L (3.5-5.1)
[2020-09-29] MEDS ORDERED: dexAMETHasone 10 MG/ML VIAL ONE (15:47)
[2020-09-29] MEDS ORDERED: DIPHENHYDRAMINE 50 MG/ML VIAL ONE (15:47)
[2020-09-29] MEDS ORDERED: METOCLOPRAMIDE 10 MG/2mL INJ ONE (15:47)
--- NOTE | 2020-09-29 16:15 | ER ---
Nurse's Notes [facility] Name: Britt Bower Age: 45 yrs Sex: Female : 1975 Arrival Date: 09/29/2020 Time: 12:46 Bed 18 Private MD: Diagnosis: Headache;Epilepsy and recurrent seizures Presentation: 09/29 12:48 Ebola Screen: Patient denies travel to an Ebola-affected area in the 21 days before ll1 illness onset. Risk Assessment: Do you want to hurt yourself or someone else? Patient reports no desire to harm self or others. 12:48 Method Of Arrival: Ambulatory ll1 12:48 Acuity: [facility] 3 ll1 12:51 Chief complaint: Patient states: States she had a light seizure this morning at 0630 ll1 while laying in bed this morning. Her saw it, said it was a normal seizure for her. MONTANO with nausea since. Said she feels sluggish and slow. Coronavirus screen: Client denies travel out of the [place] in the last 14 days. At this time, the client does not indicate any symptoms associated with coronavirus-19. Initial Sepsis Screen: Does the patient meet any 2 criteria? No. Patient's initial sepsis screen is negative. Does the patient have a suspected source of infection? Yes: Other: MONTANO/seizure. Onset of symptoms was September 29, 2020. Historical: - Allergies: 12:48 Amoxicillin; ll1 12:48 Aspirin; ll1 12:48 Coconut; ll1 12:48 diazepam; ll1 12:48 Iodine; ll1 12:48 Morphine; ll1 12:48 Ondansetron HCl; ll1 12:48 PENICILLINS; ll1 12:48 Piperacillin Sodium; ll1 12:48 shrimp; ll1 12:48 tazobactam sodium; ll1 12:48 Zofran; ll1 - PMHx: 12:48 Asthma; Hypertension; history of stroke; epilepsy; Diabetes - IDDM; neuropathy; ll1 - PSHx: 12:48 Hysterectomy; Cholecystectomy; breast sx; ll1 - Immunization history:: Flu vaccine is up to date. - Social history:: Smoking status: Patient denies any tobacco usage or history of. Screenin:04 Abuse screen: Denies threats or abuse. Nutritional screening: No deficits noted. bw Tuberculosis screening: No symptoms or risk factors identified. Fall Risk None identified. Assessment: 14:04 Reassessment: Patient and/or family updated on plan of care and expected duration. Pain bw level reassessed. Patient is alert, oriented x 3, equal unlabored respirations, skin warm/dry/pink. General: Appears in no apparent distress. uncomfortable. Pain: Complains of pain in headache. Neuro: Seizure activity pt reports seizure at home. no deficits noted during pt assessment. Cardiovascular: No deficits noted. Respiratory: No deficits noted. GI: No deficits noted. Vital Signs: 12:51 BP 136 / 83; Pulse 77; Resp 17; Temp 97.9; Pulse Ox 98% ; Weight 103.42 kg; Height 5 ll1 ft. 3 in. (160.02 cm); Pain 7/10; 12:51 Body Mass Index 40.39 (103.42 kg, 160.02 cm) ll1 ED Course: 12:46 Patient arrived in ED. ds1 12:47 Arm band placed on. ll1 12:48 Triage completed. ll1 13:36 Dontae Hamilton PA is PHCP. cp 13:36 Jesus Rizzo MD is Attending Physician. cp 14:03 Hermelinda Hunter, MERRIKC is Primary Nurse. bw 14:04 Patient has correct armband on for positive identification. Call light in reach. Side bw rails up X 1. youth nutritional monitor on. Pulse ox on. NIBP on. 14:04 No provider procedures requiring assistance completed. bw 14:30 CT Head Brain wo Cont In Process Unspecified. EDMS Administered Medications: 15:05 CANCELLED (Patient Refused): Benadryl 25 mg IVP once bw 15:05 CANCELLED (Patient Refused): NS 0.9% 1000 ml IV at 1 bolus Per protocol; 1000 mL bolus bw 15:06 CANCELLED (Patient Refused): Dexamethasone 10 mg IVP once; (not to exceed 40 mg) bw 15:06 CANCELLED (Patient Refused): Reglan 10 mg IVP once; over 1 to 2 minutes bw 15:40 Drug: Reglan 10 mg Route: IM; Site: right deltoid; bw 15:40 Drug: Benadryl 25 mg Route: IM; Site: right deltoid; bw 15:40 Drug: Dexamethasone 10 mg Route: IM; Site: left deltoid; bw Outcome: 16:15 Discharge ordered by . cp 17:02 Discharged to home ambulatory. ss 17:02 Condition: good 17:02 Discharge instructions given to patient, Instructed on discharge instructions, follow up and referral plans. Demonstrated understanding of instructions, follow-up care. 17:03 Patient left the ED. Signatures: Dispatcher [employer] EDOH Hampton Gillian ds1 Cindy Raman RN RN Dontae Hamilton PA PA cp Lewis, Lynsay, RN RN 1 Hermelinda Hunter RN RN
--- NOTE | 2020-09-29 16:15 | EDPHYS ---
Physician Documentation [facility] Name: Britt Bower Age: 45 yrs Sex: Female : 1975 Arrival Date: 09/29/2020 Time: 12:46 Bed 18 Private MD: ED Physician Jesus Rizzo HPI: 09/29 14:00 This 45 yrs old Female presents to ER via Ambulatory with complaints of cp Headache, Probable Seizure. 14:00 The patient complains of pain to the top of head and forehead. Onset: The cp symptoms/episode began/occurred this morning. 14:00 The patient describes the headache as aching. Associated signs and symptoms: Pertinent cp positives: dizziness, nausea, fatigue, Pertinent negatives: altered mental status, fever, neck stiffness, paresthesias, vision changes, vomiting, weakness. Severity of symptoms: in the emergency department the pain a " 7" out of "10". Patient reports history of seizure this morning witnessed by . Patient reports nausea, fatigue, dizziness and headache since. Historical: - Allergies: 12:48 Amoxicillin; ll1 12:48 Aspirin; ll1 12:48 Coconut; ll1 12:48 diazepam; ll1 12:48 Iodine; ll1 12:48 Morphine; ll1 12:48 Ondansetron HCl; ll1 12:48 PENICILLINS; ll1 12:48 Piperacillin Sodium; ll1 12:48 shrimp; ll1 12:48 tazobactam sodium; ll1 12:48 Zofran; ll1 - PMHx: 12:48 Asthma; Hypertension; history of stroke; epilepsy; Diabetes - IDDM; neuropathy; ll1 - PSHx: 12:48 Hysterectomy; Cholecystectomy; breast sx; ll1 - Immunization history:: Flu vaccine is up to date. - Social history:: Smoking status: Patient denies any tobacco usage or history of. ROS: 14:05 Constitutional: Negative for body aches, chills, fever, poor PO intake. cp 14:05 Eyes: Negative for injury, pain, redness, and discharge. cp 14:05 ENT: Negative for drainage from ear(s), ear pain, sore throat, difficulty swallowing, difficulty handling secretions. 14:05 Neck: Negative for pain with movement, pain at rest, stiffness. 14:05 Cardiovascular: Negative for chest pain, palpitations. 14:05 Respiratory: Negative for cough, shortness of breath, wheezing. 14:05 Abdomen/GI: Positive for nausea, Negative for abdominal pain, vomiting, diarrhea, constipation. 14:05 : Negative for urinary symptoms. 14:05 Neuro: Positive for dizziness, headache, Negative for altered mental status, syncope, weakness. 14:05 All other systems are negative. Exam: 14:10 Head/Face: Normocephalic, atraumatic. cp 14:10 Constitutional: The patient appears in no acute distress, alert, awake, non-diaphoretic, non-toxic, well developed, well nourished. 14:10 Eyes: Periorbital structures: appear normal, Pupils: equal, round, and reactive to light and accomodation, Extraocular movements: intact throughout, Conjunctiva: normal, no exudate, no injection, Sclera: no appreciated abnormality, Lids and lashes: appear normal, bilaterally. 14:10 ENT: External ear(s): are unremarkable, Nose: is normal, Mouth: Lips: moist, Oral mucosa: moist, Posterior pharynx: Airway: no evidence of obstruction, patent. 14:10 Neck: ROM/movement: is normal, is supple, without pain, no range of motions limitations, no meningismus. 14:10 Chest/axilla: Inspection: normal, Palpation: is normal, no crepitus, no tenderness. 14:10 Cardiovascular: Rate: normal, Rhythm: regular. 14:10 Respiratory: the patient does not display signs of respiratory distress, Respirations: normal, no use of accessory muscles, no retractions, Breath sounds: are clear throughout, no decreased breath sounds, no stridor, no wheezing. 14:10 Abdomen/GI: Inspection: abdomen appears normal, Palpation: abdomen is soft and non-tender, in all quadrants. 14:10 Neuro: Orientation: to person, place \\T\\ time. Mentation: is normal, Cerebellar function: is grossly normal, Motor: moves all fours, strength is normal, Sensation: is normal. 16:06 ECG was reviewed by the Attending Physician. cp Vital Signs: 12:51 BP 136 / 83; Pulse 77; Resp 17; Temp 97.9; Pulse Ox 98% ; Weight 103.42 kg; Height 5 ll1 ft. 3 in. (160.02 cm); Pain 7/10; 12:51 Body Mass Index 40.39 (103.42 kg, 160.02 cm) ll1 MDM: 13:45 Patient medically screened. cp 14:10 Differential diagnosis: cerebral vascular accident, meningitis, migraine, subarachnoid cp bleed, tension headache. 16:13 Data reviewed: vital signs, nurses notes, lab test result(s), radiologic studies, CT cp scan. Test interpretation: by ED physician or midlevel provider: ECG. Counseling: I had a detailed discussion with the patient and/or guardian regarding: the historical points, exam findings, and any diagnostic results supporting the discharge/admit diagnosis, lab results, radiology results, to return to the emergency department if symptoms worsen or persist or if there are any questions or concerns that arise at home. Response to treatment: the patient's symptoms have markedly improved after treatment, VSS. Patient reports headache and nausea markedly improved, and as a result, I will discharge patient. 09/29 13:57 Order name: Acetaminophen; Complete Time: 15:53 cp 09/29 13:57 Order name: Basic Metabolic Panel; Complete Time: 15:53 cp 09/29 15:54 Interpretation: Normal except: CL 108; BUN 21; GFR 81; CA 8.3. cp 09/29 13:57 Order name: CBC with Diff; Complete Time: 15:53 cp 09/29 15:53 Interpretation: Reviewed. cp 09/29 13:57 Order name: ETOH Level; Complete Time: 15:53 cp 09/29 13:57 Order name: Hepatic Function; Complete Time: 15:53 cp 09/29 15:53 Interpretation: Normal except: GLOB 3.8; A/G 0.9. cp 09/29 13:57 Order name: PT-INR; Complete Time: 15:53 cp 09/29 13:57 Order name: CT Head Brain wo Cont; Complete Time: 14:50 cp 09/29 14:50 Interpretation: Report reviewed. cp 09/29 13:57 Order name: Ptt, Activated; Complete Time: 15:53 cp 09/29 13:57 Order name: Salicylate; Complete Time: 15:53 cp 09/29 13:57 Order name: Urine Drug Screen; Complete Time: 14:50 cp 09/29 14:30 Order name: Urine Dipstick--Ancillary (enter results); Complete Time: 14:50 mt 09/29 14:30 Order name: Urine --Ancillary (enter results); Complete Time: 14:50 mt 09/29 13:57 Order name: Urine Test (obtain specimen); Complete Time: 15:45 cp 09/29 13:57 Order name: EKG; Complete Time: 13:58 cp 09/29 13:57 Order name: EKG - Nurse/Tech 09/29 13:57 Order name: Labs collected and sent; Complete Time: 15:45 cp 09/29 13:57 Order name: Urine Dipstick-Ancillary (obtain specimen); Complete Time: 15:45 cp EC:06 Rate is 65 beats/min. Rhythm is regular. MA interval is normal. QRS interval is normal. cp QT interval is normal. Interpreted by me. Reviewed by me. Administered Medications: 15:05 CANCELLED (Patient Refused): Benadryl 25 mg IVP once bw 15:05 CANCELLED (Patient Refused): NS 0.9% 1000 ml IV at 1 bolus Per protocol; 1000 mL bolus bw 15:06 CANCELLED (Patient Refused): Dexamethasone 10 mg IVP once; (not to exceed 40 mg) bw 15:06 CANCELLED (Patient Refused): Reglan 10 mg IVP once; over 1 to 2 minutes bw 15:40 Drug: Reglan 10 mg Route: IM; Site: right deltoid; bw 15:40 Drug: Benadryl 25 mg Route: IM; Site: right deltoid; bw 15:40 Drug: Dexamethasone 10 mg Route: IM; Site: left deltoid; bw Disposition: 17:45 Co-signature as Attending Physician, Jesus Rizzo MD I agree with the assessment and 4 plan of care. Disposition: 09/29/20 16:15 Discharged to Home. Impression: Headache, Epilepsy and recurrent seizures. - Condition is Stable. - Discharge Instructions: General Headache Without Cause, Seizure, Adult. - Work release form, Medication Reconciliation Form, Thank You Letter, Antibiotic Education, Prescription Opioid Use form. - Follow up: Private Physician; When: 1 - 2 days; Reason: Worsening of condition. - Problem is new. - Symptoms have improved. Signatures: Dispatcher [facility] BROUT Cindy Raman RN RN ss Dontae Hamilton PA PA Jesus Whitmore MD MD tw Tomi Eden RN RN 1 Hermelinda Hunter RN RN Corrections: (The following items were deleted from the chart) 15:05 13:57 Benadryl 25 mg IVP once ordered. [facility] 15:05 13:57 NS 0.9% 1000 ml IV at 1 bolus Per protocol; 1000 mL bolus ordered. [facility] 15:06 13:57 Dexamethasone 10 mg IVP once; (not to exceed 40 mg) ordered. [facility] 15:06 13:57 Reglan 10 mg IVP once; over 1 to 2 minutes ordered. [facility] 15:42 13:57 IV Saline Lock ordered. [facility] 15:54 15:53 Normal except: CL 108; BUN 21; GFR 81. [facility] 17:03 16:15 09/29/2020 16:15 Discharged to Home. Impression: Headache; Epilepsy and recurrent ss seizures. Condition is Stable. Forms are Medication Reconciliation Form, Thank You Letter, Antibiotic Education, Prescription Opioid Use. Follow up: Private Physician; When: 1 - 2 days; Reason: Worsening of condition. Problem is new. Symptoms have improved. cp
[2020-09-29 17:11] VITALS: BP 136/83; TEMP 97.9; O2SAT 98
--- NOTE | 2020-09-30 10:23 | EKG ---
Test Date: 2020-09-29 Test Time: 16:03:50 Database Technician: OLESYA MEASUREMENT RESULTS: Intervals: Rate: 65 MS: 144 QRSD: 86 QT: 452 QTc: 470 [place]: P: 66 MS: 144 QRS: 28 T: 47 INTERPRETIVE STATEMENTS: Normal sinus rhythm Normal ECG Compared to ECG 05/19/2019 21:45:53 No significant changes Electronically Signed On 09-30-20 10:21:56 CDT by Bernabe Graham
== END 2020-09-29 17:03 | disposition home or self-care (01) ==
LOC: ER 12:44
DX: G40.802 Other epilepsy, not intractable, without status epilepticus (principal); I10 Essential (primary) hypertension; Z88.0 Allergy status to penicillin; Z88.1 Allergy status to other antibiotic agents; Z88.5 Allergy status to narcotic agent; Z88.6 Allergy status to analgesic agent; Z88.8 Allergy status to other drugs, medicaments and biological substances; Z91.013 Allergy to seafood; Z91.048 Other nonmedicinal substance allergy status
CPT/HCPCS: 36415; 70450; 80048; 80076; 80307; 80320; 80329; 81003; 81025; 85025; 85610; 85730; 93005; 96372; 99284; J1100; J1200; J2765

== ENCOUNTER 2021-03-19 21:35 | Emergency (ER) | payer SELFPAY ==
--- OUTSIDE RECORDS SUMMARY | 2021-03-19 21:38 | XMS REPORT | Continuity of Care Document ---
:1975 Author Organization [facility] t Address [address] [place] [address] Care Team Providers Name Role Phone [place] Akua RICHMOND Primary Care Physician Dalila Milan Attending Clinician Doctor Unassigned, Name Attending Clinician Unavailable Nazanin KELSEY S Attending Clinician IGOR SANCHEZ Attending Clinician Unavailable Problems This patient has no known problems. Allergies, Adverse Reactions, Alerts Allergy Allergy Status Severity Reaction(s) Onset Inactive Treating Comm ents Source Name Type Date Date Clinician Coconut Drug Active [facility] Morphine Drug Active cp [facility] Center Shrimp Drug Active [facility] Aspirin Propensi Active Anaphylaxis [facility] 11-13 [facility] - adverse 00:00: Medical reaction 00 Center s Diazepam Propensi Active Anaphylaxis [address] ty to 11-13 [facility] - adverse 00:00: Medical reaction 00 Center s Iodine Propensi Active Anaphylaxis [facility] to 11-13 [facility] - adverse 00:00: [...] Date Stop Date Quantity Comments Source History [facility] Std Drinks Medica l Center History [facility] Alcohol Binge Medical [facility] Tobacco use and 2018-10-15 2018-10-15 Never used [facility] kes - exposure 00:00:00 00:00:00 Medical [place] Alcohol intake 2018-10-15 2018-10-15 Current [facility] - 00:[facility] 00:00:00 non-drinker of Medical Ce nter alcohol (finding) History [facility] 2018-10-15 2018-10-[address] [facility] - Alcohol Frequency 00:00:00 00:00:00 [facility] Smoking Status Start Date Stop Date Source Never smoker [facility] Medications Ordered Filled Start Stop Current Ordering Indication Dosage Frequency Signature Comments Components Source Medication Medication Date Date Medication? Clinician (SIG) Name Name lisinopril- Yes 1{tbl} QD Take [address] hydroCHLORO 3-29 tablet by Nancy es - thiazide 11:40: mouth Medical (NAVNEETE,Z 24 daily. Center ESTORETIC) 20-25 mg per tablet levETIRAcet Yes TAKE TWO [facility] am (KEPPRA) 3-07 (2) [facility] - 500 MG 00:00: TABLET(S) Medica l tablet 00 BY MOUTH Center EVERY TWELVE HOURS. lisinopril Yes TAKE ONE [facility] (PRINIVIL,Z 3-07 (1) [facility] - ESTRIL) 10 00:00: TABLET(S) Me dical MG tablet 00 BY MOUTH Center ONCE A DAY. gabapentin Yes [id number] 3 (three) [facility] (NEURONTIN) 07-26 [id number] times L ukes - 600 MG 00:00: 3D daily. Medical tablet 00 Center insulin Yes [address] 70/30, 07-26 TID [facility] - insulin 00:00: Medical NPH-insulin 00 Center regular, (HUMULIN 70/30 U-100 KWIKPEN) 100 unit/mL (70-30) InPn insulin pen Albuterol Albuterol Yes [place] [address] Sulfate Sulfate [place] needed k[facility] Procedures This patient has no known procedures. Plan of Care Planned Activity Planned Date Details Comments Source Future Scheduled 2020-03-[address] [facility] - Test 00:00:00 (#1) [code = [facility] INFLUENZA VACCINE (#1)] Future Scheduled [address] [facility] - Test 00:00:00 (procedure) [code = [facility] [id number]] Future Scheduled [address] [facility] Nancy es - Test 00:00:00 malignant neoplasm Medical C enter of cervix (procedure) [code = 573244788] Encounters Start End Encounter Admission Attending Care Care Encounter Source Date/Time Date/Time Type Type Clinicians Facility Department ID 2021-03-08 2021-03-08 Outpatient [facility] [id number] [facility] 2021-03-05 2021-03-05 Outpatient [facility] [id number] [facility] 2020-09-20 2020-09-20 Outpatient [facility] [id number] [facility] 2020-04-19 2020-04-19 Outpatient [facility] [id number] [facility] 2020-03-09 2020-03-09 [facility] [id number] 15:12:00 15:12:00 [facility] ent Clinics 2020-03-05 2020-03-05 [facility] [id number] 12:02:00 12:02:00 [facility] 2020-01-02 2020-01-02 [facility] [id number] 11:40:00 11:40:00 [facility] ent Clinics 2019-09-27 2019-09-27 Emergency Carlie [facility] [id number] 11:40:39 18:09:00 Charity Varma [id number] [place] [id number] [place] [id number] 2019-09-27 2019-09-27 Orders Doctor CHAN [id number] 00:00:00 00:00:00 Only Unassigned, HARMAN [id number] [place] [id number] [id number] 2019-08-24 2019-08-24 [facility] [id number] 10:44:00 10:44:00 [facility] ent Clinics 2019-08-13 2019-08-13 Emergency Nazanin [facility] [id number] 11:49:00 12:46:00 Ramya Varma [id number] [place] [id number] [place] [id number] 2019-08-13 2019-08-13 Orders Doctor DUSTIN [id number] 00:00:00 00:00:00 Only Unassigned, HARMAN [id number] [place]2.7.2.686 [id number] 2019-08-11 2019-08-11 [facility] [id number] 14:00:00 14:00:00 t [facility] Medicine Outpati ent Clinics 2019-08-04 2019-08-04 [facility] [id number] 10:42:00 10:42:00 t [facility] Medicine Outpati ent Clinics 2019-04-14 2019-04-14 [facility] [id number] 14:40:00 14:40:00 t [facility] Medicine Medicine Outpati ent Clinics 2019-04-11 2019-04-11 [facility] [id number] 11:12:00 11:12:[address] [place] s - Drive [facility] l Medicine Outpati ent Clinics 2019-03-03 2019-03-03 [facility] [id number] 16:39:00 16:39:00 t [facility] Medicine Outpati ent Clinics 2019-02-03 2019-02-03 [facility] [id number] 11:00:00 11:00:00 t [facility] Medicine Medicine Outpati ent Clinics 2018-09-17 2018-09-17 [facility] [id number] 12:26:00 12:26:00 t [facility] Medicine Medicine Outpati ent Clinics 2018-09-09 2018-09-09 [facility] [id number] 13:30:00 13:30:00 t [facility] [address] [facility] Medicine Medicine Outpati ent Clinics 2018-04-23 2018-04-23 [facility] [id number] 10:00:00 10:00:00 t [facility] Medicine Medicine Outpati ent Clinics 2018-04-22 2018-04-22 [facility] [id number] 14:14:00 14:14:00 t [facility] Medicine Outpati ent Clinics 2018-04-20 2018-04-20 [facility] [id number] 10:02:00 10:02:00 t [facility] 2018-04-19 2018-04-19 [facility] [id number] 16:33:00 16:33:00 t [facility] 2018-04-16 2018-04-16 [facility] [id number] 09:30:00 09:30:00 t [facility] 2018-02-19 2018-02-19 [facility] [id number] 10:45:00 10:45:[address] [facility] ent Clinics 2017-12-07 2017-12-07 [facility] [id number] 08:36:00 08:36:00 t [facility] ent [facility] 2017-11-13 2017-11-13 [facility] [id number] 10:30:00 10:30:00 [facility] ent [facility] Results Test Description Test Time Test Comments Results Result Comments Source SCREEN, URINE 2018-10-15 15:27:00 Test Item Value Reference Range Interpretation Comme nts TEST URINE (BEAKER) (test code = 583) Negative URINALYSIS WITH MICROSCOPIC IF [id number] 14:55:00 Test Item Value Reference Range Interpretation [...] = 2795) RAD, CHEST, 1 VIEW, NON [id number] 13:46:00Reason for exam:->chest painIs the patient ?->UnknownShould this be performed at the [facility]?->YesFINAL REPORT Chest, AP view. History: Chest pain. Comparison: None available. Discussion: The cardiomediastinal silhouette and pulmonary vasculature are within normal limits. The lungs are clear without evidence of consolidation or effusion. There are no acute osseous abnormalities. The soft tissues are unremarkable. IMPRESSION: No acute cardiopulmonary abnormality. Signed: Kirstie Ozuna [place] Verified Date/Time: 10/15/2018 13:46:07 Reading Location: [facility] B-TYPE NATRIURETIC FACTOR (BNP)2018-10-15 13:45:00 Test Item Value Reference Range Interpretation Comments B-TYPE NATRIURETIC PEPTIDE (BEAKER) < pg/mL 0-100 (test code = 700) TROPONIN [id number] 13:42:00 Test Item Value Reference Range Interpretation [...] failure, acidosis, acute neurological disease, and persistent tachyarrhythmia.[id number] 13:36:00 Test Item Value Reference Range Interpretation Comments MAGNESIUM (BEAKER) (test code = 1.9 mg/dL 1.6-2.6 627) COMPREHENSIVE METABOLIC [id number] 13:36:00 Test Item Value Reference Range Interpretation [...] ATED GFR. CBC W/PLT COUNT & AUTO [id number] 13:09:00 Test Item Value Reference Range Interpretation [...] % 0-1 PERCENT (BEAKER) (test code = 0623)
--- NOTE | 2021-03-20 01:21 | ER ---
Nurse's Notes [facility] Name: Britt Bower Age: 45 yrs Sex: Female : 1975 Arrival Date: 03/19/2021 Time: 21:46 Bed DX1 Private MD: CHARISSE CORDOBA Diagnosis: Hives;Low back pain Presentation: 03/19 22:54 Chief complaint: Patient states: was cutting grass yesterday and had hives all over her iw legs and chest, and also pulled something and injured her lower back. Coronavirus screen: At this time, the client does not indicate any symptoms associated with coronavirus-19. Ebola Screen: Patient negative for fever greater than or equal to 101.5 degrees Fahrenheit, and additional compatible Ebola Virus Disease symptoms Patient denies exposure to infectious person. Patient denies travel to an Ebola-affected area in the 21 days before illness onset. No symptoms or risks identified at this time. Anaphylaxis evaluation, no signs or symptoms of anaphylaxis were noted. Initial Sepsis Screen: Does the patient meet any 2 criteria? No. Patient's initial sepsis screen is negative. Does the patient have a suspected source of infection? No. Patient's initial sepsis screen is negative. Risk Assessment: Do you want to hurt yourself or someone else? Patient reports no desire to harm self or others. Onset of symptoms was March 18, 2021. 22:54 Method Of Arrival: Ambulatory iw 22:54 Acuity: [facility] 4 iw PSYCHIATRIST: 22:56 LMP N/A - Hysterectomy iw Historical: - Allergies: 22:55 Amoxicillin; iw 22:55 Aspirin; iw 22:55 Coconut; iw 22:55 diazepam; iw 22:55 Iodine; iw 22:55 Morphine; iw 22:55 Ondansetron HCl; iw 22:55 PENICILLINS; iw 22:55 Piperacillin Sodium; iw 22:55 tazobactam sodium; iw 22:55 Zofran; iw 22:55 shrimp; iw - PMHx: 22:55 Asthma; Diabetes - IDDM; epilepsy; history of stroke; Hypertension; neuropathy; iw Screenin/01 00:15 Abuse screen: Denies threats or abuse. Denies injuries from another. Tuberculosis iw screening: No symptoms or risk factors identified. Fall Risk None identified. Assessment: 00:15 General: Appears in no apparent distress. Behavior is calm, cooperative. Pain: iw Complains of pain in right leg and left leg. Neuro: Level of Consciousness is awake, alert, obeys commands, Oriented to person, place, time, situation, Moves all extremities. Full function. Cardiovascular: Patient's skin is warm and dry. Respiratory: Airway is patent Respiratory effort is even, unlabored, Breath sounds are clear bilaterally. Derm: Skin is intact, is healthy with good turgor. Musculoskeletal: Range of motion: intact in all extremities. Vital Signs: 03/19 22:56 BP 107 / 76; Pulse 79; Resp 16; Temp 96.8; Pulse Ox 98% on R/A; Weight 101.15 kg; iw ED Course: 21:46 Patient arrived in ED. mr 21:46 NILTON CORDOBAA is Private Physician. mr 22:55 Triage completed. iw 22:55 Arm band placed on. iw 23:46 [facility] 23:46 Niki Chiu MD is Attending Physician. [facility] 03/20 01:05 Kem Murillo, RN is Primary Nurse. em 01:38 No provider procedures requiring assistance completed. Patient did not have IV access em during this emergency room visit. Administered Medications: 01:37 Drug: Ketorolac 30 mg Route: IM; Site: right deltoid; em 01:38 Follow up: Response: Medication administered at discharge. em 01:38 Drug: Pepcid (famotidine) 20 mg Route: PO; em 01:38 Follow up: Response: Medication administered at discharge. em Outcome: 01:20 Discharge ordered by . [facility] 01:38 Discharged to home ambulatory, with family. em 01:38 Condition: good 01:38 Discharge instructions given to patient, Instructed on discharge instructions, follow up and referral plans. medication usage, Demonstrated understanding of instructions, follow-up care, medications, Prescriptions given X 2. 01:38 Patient left the ED. em Signatures: Cedric August PA PA jmm Rivera, Mary mr Kem Murillo, RN RN Kisha Vela RN RN
--- NOTE | 2021-03-20 01:21 | EDPHYS ---
Physician Documentation [facility] Name: Britt Bower Age: 45 yrs Sex: Female : 1975 Arrival Date: 03/19/2021 Time: 21:46 Bed DX1 Private MD: CHARISSE CORDOBA ED Physician Niki Chiu HPI: 03/20 01:17 This 45 yrs old Female presents to ER via Ambulatory with complaints of Hives.jmm 01:17 Onset: The symptoms/episode began/occurred gradually, 1 day(s) ago. Associated signs jmm and symptoms: Pertinent positives: hives, Pertinent negatives: dysphagia, fever, Syncope vomiting. [age]-year-old female with history of diabetes mellitus, hypertension, asthma that presents emerged part with complaints of lower back pain and spasming along with hives to the lower legs. This occurred after she performed yard work and mowing her lawn yesterday. Patient denies vomiting, shortness of breath, swelling to her throat, and other concerning symptoms.. [employer]: 03/19 22:56 LMP N/A - Hysterectomy iw Historical: - Allergies: 22:55 Amoxicillin; iw 22:55 Aspirin; iw 22:55 Coconut; iw 22:55 diazepam; iw 22:55 Iodine; iw 22:55 Morphine; iw 22:55 Ondansetron HCl; iw 22:55 PENICILLINS; iw 22:55 Piperacillin Sodium; iw 22:55 tazobactam sodium; iw 22:55 Zofran; iw 22:55 shrimp; iw - PMHx: 22:55 Asthma; Diabetes - IDDM; epilepsy; history of stroke; Hypertension; neuropathy; iw ROS: 03/20 01:17 Constitutional: Negative for fever, chills, and weight loss, Cardiovascular: Negative jmm for chest pain, palpitations, and edema, Respiratory: Negative for shortness of breath, cough, wheezing, and pleuritic chest pain. All other systems are negative. Exam: 01:17 Constitutional: This is a well developed, well nourished patient who is awake, alert, jmm and in no acute distress. Head/Face: atraumatic. Eyes: EOMI, no conjunctival erythema appreciated ENT: Moist Mucus Membranes Neck: Trachea midline, Supple Chest/axilla: Normal chest wall appearance and motion. Cardiovascular: Regular rate and rhythm. No edema appreciated Respiratory: Normal respirations, no respiratory distress appreciated Abdomen/GI: Non distended, soft 01:17 Back: Paraspinal lumbar tenderness on palpation, no midline tenderness appreciated, painful range of motion noted. 01:17 Musculoskeletal/extremity: ROM: intact in all extremities. 01:17 Skin: Appearance: Color: normal in color, Hives noted to the lower legs bilaterally. 01:17 Neuro: Orientation: is normal, Mentation: is normal, Memory: is normal. 01:17 Psych: Behavior/mood is pleasant, cooperative. Vital Signs: 03/19 22:56 BP 107 / 76; Pulse 79; Resp 16; Temp 96.8; Pulse Ox 98% on R/A; Weight 101.15 kg; iw MDM: 03/20 01:11 Patient medically screened. [facility] 01:20 Data reviewed: vital signs, nurses notes. Counseling: I had a detailed discussion with reji the patient and/or guardian regarding: the historical points, exam findings, and any diagnostic results supporting the discharge/admit diagnosis, the need for outpatient follow up, to return to the emergency department if symptoms worsen or persist or if there are any questions or concerns that arise at home. ED course: Patient is alert nontoxic in appearance in ED. Due to history of diabetes mellitus will treat with hydroxyzine, Pepcid, muscle relaxers. Patient is otherwise given strict return precautions. Patient understood and agrees plan of care.. Administered Medications: 01:37 Drug: Ketorolac 30 mg Route: IM; Site: right deltoid; em 01:38 Follow up: Response: Medication administered at discharge. em 01:38 Drug: Pepcid (famotidine) 20 mg Route: PO; em 01:38 Follow up: Response: Medication administered at discharge. em Disposition: 06:56 Co-signature as Attending Physician, Niki Chiu MD. ma2 Disposition Summary: 03/20/21 01:20 Discharge Ordered Location: Home [facility] Condition: Stable reji Diagnosis - Hives kiram - Low back pain kira Followup: reji - With: Private Physician - When: 2 - 3 days - Reason: Recheck today's complaints, Continuance of care, Re-evaluation by your physician Discharge Instructions: - Discharge Summary Sheet m - Acute Back Pain, Adult jmm - Hives [facility] Forms: - Medication Reconciliation Form [facility] - Thank You Letter [facility] - Antibiotic Education [facility] - Prescription Opioid Use [facility] Prescriptions: - Hydroxyzine HCl 25 mg Oral Tablet - take 1 tablet by ORAL route every 6 hours As needed; 30 tablet; Refills: 0, [facility] Product Selection Permitted - orphenadrine citrate 100 mg Oral Tablet Sustained Release - take 1 tablet by ORAL route 2 times per day As needed; 20 tablet; Refills: 0, [facility] Product Selection Permitted Signatures: Cedric August PA PA jmm Munoz, Edgar, MERRICK RN Kisha Stringer RN RN Niki Rahman MD MD ma2
[2021-03-20] MEDS ORDERED: KETOROLAC 30 MG/ML INJ ONE (01:56)
[2021-03-20] MEDS ORDERED: FAMOTIDINE 20 MG TAB ONE (01:57)
[2021-03-20 01:59] VITALS: BP 107/76; TEMP 96.8; O2SAT 98
== END 2021-03-20 01:38 | disposition home or self-care (01) ==
LOC: ER 21:35
DX: L50.9 Urticaria, unspecified (principal); M54.5 Low back pain; I10 Essential (primary) hypertension; Z88.0 Allergy status to penicillin; Z88.1 Allergy status to other antibiotic agents; Z88.5 Allergy status to narcotic agent; Z88.6 Allergy status to analgesic agent; Z88.8 Allergy status to other drugs, medicaments and biological substances; Z91.013 Allergy to seafood; Z91.018 Allergy to other foods
CPT/HCPCS: 96372; 99283

== ENCOUNTER 2021-06-17 20:21 | Emergency (ER) | payer SELFPAY ==
--- OUTSIDE RECORDS SUMMARY | 2021-06-17 20:25 | XMS REPORT | Continuity of Care Document ---
:1975 Author Organization [facility] t Address [address] [place] [address] Care Team Providers Name Role Phone [place] Akua RICHMOND Primary Care Physician Monica Randolph MD Attending Clinician Doctor Unassigned, Name Attending Clinician Unavailable Dalila PRINCE Attending Clinician Unavailable Dalila Milan Attending Clinician Sydney Lynn Attending Clinician IGOR SANCHEZ Attending Clinician Unavailable Dalila PRNICE Admitting Clinician Unavailable Problems Condition Condition Condition Status Onset Resolution Last Treating Co mments Source Name Details Category Date Date Treatment Clinician Date No known No known Disease Unive rs active active ity of problems problems [facility] Allergies, Adverse Reactions, Alerts Allergy Allergy Status Severity Reaction(s) Onset Inactive Treating Comm ents Source Name Type Date Date Clinician Coconut Drug Active [facility] Morphine Drug Active cp [facility]olera [facility] nce 00[facility]: Medical 00 Center Shrimp Drug Active [facility] Medical 00 Center Diazepam Propensi Active Anaphylaxis 2018-[address] ty to 11-13 [facility] - adverse 00:00: Medical reaction 00 Center s Iodine Propensi Active Anaphylaxis 2018-[address] [facility] ty to 11-13 [facility] - adverse 00:00: Medical reaction 00 Center s Penicill Propensi Active Anaphylaxis 2018-[address] in ty to 11-13 [facility] - adverse 00:00: Medical reaction 00 Center s Ondanset Propensi Active Anaphylaxis 2018-[address] reji Hcl ty to 11-13 [facility] - (Pf) adverse 00:00: Medical reaction 00 Center s Aspirin Propensi Active Anaphylaxis 2018-[address] ty to 11-13 [facility] - adverse 00:00: Medical reaction 00 Center s MORPHINE DRUG Active Palpitations 2017-0 Un ramon INGREDI 03-22 ity of 00:00: [place] 00 Medical Branch [place] [address] Univers ty to Breath 03-22 ity of adverse 00:00: [place] reaction 00 Medical s Branch IODINE DRUG Active Anaphylaxis 0 Unive rs INGREDI 11-22 ity of 00:00: [place] 00 Medical Branch Iodine Propensi Active Anaphylaxis 0 Uni vers ty to 11-22 ity of adverse 00:00: [place] reaction 00 Medical s to Branch drug PENICILL DRUG Active Hives Univers IN INGREDI - ity of 00:00: [place] 00 Medical Branch ONDANSET DRUG Active Hives Univers REJI HCL -18 ity of (PF) 00:00: [place] [facility] Penicill Propensi Active Other - See 0 U nivers in ty to comments - ity of adverse 00:00: [place] reaction Medical s Branch Ondanset Propensi Active Other - See U nivers reji Hcl ty to comments -18 ity of (Pf) adverse 00:00: [place] reaction Medical s Branch Penicill Propensi Active Other - See 2014-0 U nivers in ty to comments -18 ity of adverse 00:00: [place] reaction 00 Medical s Branch ASPIRIN DRUG Active Anaphylaxis 2006-0 Univ ers INGREDI - ity of 00:00: [place] 00 Medical Branch DIAZEPAM DRUG Active Rash 2006- Univers INGREDI - ity of 00:00: [place] 00 Medical Branch Aspirin Propensi Active Rash 2007-0 Univers ty to 5-17 ity of adverse 00:00: [place] reaction 00 Medical s Branch Diazepam Propensi Active Rash 2006-0 Univer s ty to 5-17 ity of adverse 00:00: [place] reaction 00 Medical s Branch penicill Adverse Active anaphylaxis [facility] [...] Start Date Stop Date Quantity Comments Source Exposure to Not sure University of SARS-CoV-2 [facility] (event) [place] [facility] [place] [facility] [place] History SDOH [facility] St[facility] r Drinks History SDOH [facility] - Alcohol Binge Medical Alessia ter Tobacco use and 2018-10-15 2018-10-[address] [facility] Paula kes - exposure 00:00:00 00:00:00 Medical [place] Alcohol intake 2018-10-15 2018-10-[address] [facility] - 00:00:00 00:00:00 non-drinker of Medical Ce nter alcohol (finding) History SDOH 2018-10-15 2018-10-[address] [facility] - Alcohol Frequency 00:00:00 00:00:00 [facility] Smoking Status Start Date Stop Date Source Unknown if ever smoked [facility] Never smoker [facility] Medications Ordered Filled Start Stop Current Ordering Indication Dosage Frequency Signature Comments Components Source Medication Medication Date Date Medication? Clinician (SIG) Name Name dexamethaso 2020-0 2020- No 10mg 10 mg, Uni vers ne 09-26 Oral, ity of (DECADRON 20:15: 20:29 [place], 1 [place] PHOS[place]ATE[place] 00 :00 dose, Tue Medi priyanka injection 09/27/19 at Bran ch 10 mg 1515, Routine ipratropium 2020-0 2020- No 6mL 6 mL, Univ ers -albuterol 09-26- Inhalation it y of (DUONEB) 18:30: 17:32 , ONCE, 1 [place] as 0.5 mg-3 00 :00 dose, Tue Medica l mg(2.5 mg 20 at Bran ch base)/3 mL 1330, nebulizer Routine solution 6 mL benzonatate 2020-0 Yes [id number] 100mg Take 1 Univers 100 mg 3-10 capsule by ity of capsule 00:00: mouth 3 00 (three) Medical times Branch daily as needed for Cough. albuterol 2020-0 Yes [id number] 2{puff} Inhale 2 Univers 90 3-10 Puffs ity of mcg/actuati 00:00: every 4 [place] as on inhaler 00 (four) Medical hours as Branch needed for Wheezing or Shortness of Breath. benzonatate 2020-0 Yes [id number] 100mg Take 1 Univers 100 mg 3-10 capsule by ity of capsule 00:00: mouth 3 00 (three) Medical times Branch daily as needed for Cough. albuterol 2020-0 Yes [id number] 2{puff} Inhale 2 Univers 90 3-10 Puffs ity of mcg/actuati 00:00: every 4 [place] as on inhaler 00 (four) Medical hours as Branch needed for Wheezing or Shortness of Breath. benzonatate 2020-0 Yes [id number] 100mg Take 1 Univers 100 mg 3-10 capsule by ity of capsule 00:00: mouth 3 (three) Medical times Branch daily as needed for Cough. albuterol 2020-0 Yes [id number] 2{puff} Inhale 2 Univers 90 3-10 Puffs ity of mcg/actuati 00:00: every 4 [place] as on inhaler 00 (four) Medical hours as Branch needed for Wheezing or Shortness of Breath. GABAPENTIN 2018-07 Yes Take by Uni vers ORAL 1-22 mouth. ity of 02:44: [address] GABAPENTIN 2018-07 Yes Take by Uni vers ORAL -22 mouth. ity of 02:44: [address] LISINOPRIL 2018-07 Yes Take by Uni vers ORAL -22 mouth. ity of 02:44: [address] HYDROCHLORO 2018-07 Yes Take by Un ramon THIAZIDE - mouth. ity of ORAL 02:44: [address] LEVETIRACET 2018-07 Yes Take by Un ramon AM (KEPPRA - mouth. ity of ORAL) 02:44: [address] INSULIN NPH 2018- Yes 10U inject 10 U nivers HUM/REG 1-22 Units ity of INSULIN HM 02:44: [place] (INSULIN 46 skin 2 Medical 70/30 SC) (two) Branch times daily. LISINOPRIL 2018- Yes Take by Uni vers ORAL 1-22 mouth. ity of 02:44: [address] HYDROCHLORO 2018-07 Yes Take by Un ramon THIAZIDE 1-22 mouth. ity of ORAL 02:44: [address] LEVETIRACET 2018-07 Yes Take by Un ramon AM (KEPPRA 1-22 mouth. ity of ORAL) 02:44: [address] INSULIN NPH 2018- Yes 10U inject 10 U nivers HUM/REG 1-22 Units ity of INSULIN HM 02:44: [place] (INSULIN 46 skin 2 Medical 70/30 SC) (two) Branch times daily. GABAPENTIN 2018-07 Yes Take by Uni vers ORAL 1-22 mouth. ity of 02:44: [address] LISINOPRIL 2018-07 Yes Take by Uni vers ORAL 1-22 mouth. ity of 02:44: [address] HYDROCHLORO 2018-07 Yes Take by Un ramon THIAZIDE 1-22 mouth. ity of ORAL 02:44: [address] LEVETIRACET 2018-07 Yes Take by Un ramon AM (KEPPRA 1-22 mouth. ity of ORAL) 02:44: [address] INSULIN NPH 2018- Yes 10U inject 10 U nivers HUM/REG 1-22 Units ity of INSULIN HM 02:44: [place] (INSULIN 46 skin 2 Medical 70/30 SC) (two) Branch times daily. GABAPENTIN 2018- Yes Take by Uni vers ORAL 1-22 mouth. ity of 02:44: [address] LISINOPRIL 2018- Yes Take by Uni vers ORAL 1-22 mouth. ity of 02:44: [address] HYDROCHLORO 2018- Yes Take by Un ramon THIAZIDE 1-22 mouth. ity of ORAL 02:44: [address] LEVETIRACET 2018-07 Yes Take by Un ramon AM (KEPPRA 1-22 mouth. ity of ORAL) 02:44: [address] INSULIN NPH 2018-07 Yes 10U inject 10 U nivers HUM/REG 1-22 Units ity of INSULIN HM 02:44: [place] (INSULIN 46 skin 2 Medical 70/30 SC) (two) Branch times daily. GABAPENTIN 2018-07 Yes Take by Uni vers ORAL 1-22 mouth. ity of 02:44: [address] LISINOPRIL 2018-07 Yes Take by Uni vers ORAL 1-22 mouth. ity of 02:44: [address] HYDROCHLORO 2018-07 Yes Take by Un ramon THIAZIDE 1-22 mouth. ity of ORAL 02:44: [address] LEVETIRACET 2018-07 Yes Take by Un ramon AM (KEPPRA 1-22 mouth. ity of ORAL) 02:44: [address] INSULIN NPH 2018-07 Yes 10U inject 10 U nivers HUM/REG 1-22 Units ity of INSULIN HM 02:44: [place] (INSULIN 46 skin 2 Medical 70/30 SC) (two) Branch times daily. GABAPENTIN 2018-07 Yes Take by Uni vers ORAL 1-22 mouth. ity of 02:44: [address] LISINOPRIL 2018-07 Yes Take by Uni vers ORAL 1-22 mouth. ity of 02:44: [address] HYDROCHLORO 2018-07 Yes Take by Un ramon THIAZIDE 1-22 mouth. ity of ORAL 02:44: [address] LEVETIRACET 2018-07 Yes Take by Un ramon AM (KEPPRA 1-22 mouth. ity of ORAL) 02:44: [address] INSULIN NPH 2018-07 Yes 10U inject 10 U nivers HUM/REG 1-22 Units ity of INSULIN HM 02:44: [place] (INSULIN 46 skin 2 Medical 70/30 SC) (two) Branch times daily. sod 2018-07 Yes [id number] 1{bottl Use 1 Unive rs chlor-bicar 1-21 e} Bottle in ity of b-squeez 00:00: each [place] bottle 00 nostril 2 Medical (NEILMED (two) Branch SINUS RINSE times COMPLETE) daily. Use pkdv in hot shower 1 hour before bedtime promethazin 2018-07 Yes [id number] 5mL Take 5 mL Univers e-codeine 1-21 by mouth 4 ity of 6.25-10 00:00: (four) [place] mg/5 mL 00 times Medical syrup daily as Branch needed for Cough. sod 2018-07 Yes [id number] 1{bottl Use 1 Unive rs chlor-bicar 1-21 e} Bottle in ity of b-squeez 00:00: each [place] bottle 00 nostril 2 Medical (NEILMED (two) Branch SINUS RINSE times COMPLETE) daily. Use pkdv in hot shower 1 hour before bedtime promethazin 2018-07 Yes [id number] 5mL Take 5 mL Univers e-codeine 1-21 by mouth 4 ity of 6.25-10 00:00: (four) [place] mg/5 mL 00 times Medical syrup daily as Branch needed for Cough. sod 2018-07 Yes [id number] 1{bottl Use 1 Unive rs chlor-bicar 1-21 e} Bottle in ity of b-squeez 00:00: each [place] bottle 00 nostril 2 Medical (NEILMED (two) Branch SINUS RINSE times COMPLETE) daily. Use pkdv in hot shower 1 hour before bedtime promethazin 2018-07 Yes [id number] 5mL Take 5 mL Univers e-codeine 1-21 by mouth 4 ity of 6.25-10 00:00: (four) [place] mg/5 mL 00 times Medical syrup daily as Branch needed for Cough. sod 2018-07 Yes [id number] 1{bottl Use 1 Unive rs chlor-bicar 1-21 e} Bottle in ity of b-squeez 00:00: each [place] bottle 00 nostril 2 Medical (NEILMED (two) Branch SINUS RINSE times COMPLETE) daily. Use pkdv in hot shower 1 hour before bedtime promethazin 2018-07 Yes [id number] 5mL Take 5 mL Univers e-codeine 1-21 by mouth 4 ity of 6.25-10 00:00: (four) [place] mg/5 mL 00 times Medical syrup daily as Branch needed for Cough. sod 2018-07 Yes [id number] 1{bottl Use 1 Unive rs chlor-bicar 1-21 e} Bottle in ity of b-squeez 00:00: each [place] bottle 00 nostril 2 Medical (NEILMED (two) Branch SINUS RINSE times COMPLETE) daily. Use pkdv in hot shower 1 hour before bedtime promethazin 2018-07 Yes [id number] 5mL Take 5 mL Univers e-codeine 1-21 by mouth 4 ity of 6.25-10 00:00: (four) [place] mg/5 mL 00 times Medical syrup daily as Branch needed for Cough. sod 2018-07 Yes [id number] 1{bottl Use 1 Unive rs chlor-bicar 1-21 e} Bottle in ity of b-squeez 00:00: each [place] bottle 00 nostril 2 Medical (NEILMED (two) Branch SINUS RINSE times COMPLETE) daily. Use pkdv in hot shower 1 hour before bedtime promethazin 2018-07 Yes [id number] 5mL Take 5 mL Univers e-codeine 1-21 by mouth 4 ity of 6.25-10 00:00: (four) [place] mg/5 mL 00 times Medical syrup daily as Branch needed for Cough. lisinopril- Yes 1{tbl} QD Take [address] hydroCHLORO 3-29 tablet by [facility] es - thiazide 11:40: mouth Medical (PRINZIDE,Z 24 daily. [place] [facility] 20-25 mg per tablet levETIRAcet Yes TAKE TWO [facility] am (KEPPRA) 3-07 (2) Lukes - 500 MG 00:00: TABLET(S) Medica l tablet 00 BY MOUTH Center EVERY TWELVE HOURS. lisinopril Yes TAKE ONE [facility] (PRINIVIL,Z 3-07 (1) [facility]ukes - ESTRIL) 10 00:00: TABLET(S) Me dical MG tablet 00 BY MOUTH Center ONCE A DAY. gabapentin Yes Q.[id number] 3 (three) [facility] (NEURONTIN) 1-07 [id number] times L ukes - 600 MG 00:00: 3D daily. Medical tablet 00 Kil[place] insulin 0 Yes [address] 70/30, 1-07 TID [facility]ukes - insulin 00:00: Medical NPH-insulin 00 Center regular, (HUMULIN 70/30 U-100 KWIKPEN) 100 unit/mL (70-30) InPn insulin pen Albuterol Albuterol Yes [place] [address] [facility] Sulfate Sulfate [place] needed [facility] Immunizations Ordered Filled Immunization Date Status Comments Sourc e Immunization Name Name Td 2017-03-22 Completed University of 00:00:00 [facility] Td 2017-03-22 Completed University of 00:00:00 [facility] [place] Td 2017-03-22 Completed University of 00:00:00 [facility] Td 2017-03-22 Completed University of 00:00:00 [facility] Td 2017-03-22 Completed University of 00:00:00 [facility] Td 2017-03-22 Completed University of 00:00:00 [facility] Vital Signs Vital Name Observation Time Observation Value Comments Source Systolic blood 2020-08-07 04:23:00 135 mm[Hg] Univer sity of [facility] Diastolic blood 2020-08-07 04:23:00 85 mm[Hg] Unive rsity of [facility] Heart rate 2020-08-07 04:23:00 65 /min [facility] Body temperature 2020-08-07 04:23:00 35.83 Rose [facility] Respiratory rate 2020-08-07 04:23:00 16 /min [facility] Body height 2020-08-07 04:23:00 152.4 cm [facility] Body weight 2020-08-07 04:23:00 103.42 kg [facility] BMI 2020-08-07 04:23:00 44.53 kg/m2 [facility] Oxygen saturation in 2020-08-07 04:23:00 99 /min [facility] Arterial blood by [facility] Pulse oximetry Branch Respiratory rate 2019-09-27 17:56:00 16 /min [facility] Oxygen saturation in 2019-09-27 17:56:00 97 /min University Arterial blood by [facility] Pulse oximetry Branch Systolic blood 2019-09-27 17:00:00 109 mm[Hg] Univer sity of pressure [facility] Diastolic blood 2019-09-27 17:00:00 70 mm[Hg] Unive rsity of [facility] Heart rate 2019-09-27 17:00:00 64 /min [facility] Body temperature 2019-09-27 15:58:00 36.78 Rose Univ ersity of [facility] Body height 2019-09-27 15:58:00 165.1 cm Universi ty of [place] [facility] Body weight 2019-09-27 15:58:00 98.431 kg Universi ty of [place] [facility] BMI 2019-09-27 15:58:00 36.11 kg/m2 Universi ty of [facility] Respiratory rate 2019-09-27 17:56:00 16 /min Univ ersity of [facility] Oxygen saturation in 2019-09-27 17:56:00 97 /min University of Arterial blood by [facility] Pulse oximetry Branch Systolic blood 2019-09-27 17:00:00 109 mm[Hg] Univer sity of pressure [facility] Diastolic blood 2019-09-27 17:00:00 70 mm[Hg] Unive rsity of pressure [facility] Heart rate 2019-09-27 17:00:00 64 /min Universi ty of [facility] Body temperature 2019-09-27 15:58:00 36.78 Rose Univ ersity of [facility] Body height 2019-09-27 15:58:00 165.1 cm Universi ty of [facility] Branch Body weight 2019-09-27 15:58:00 98.431 kg Universi ty of [facility] Branch BMI 2019-09-27 15:58:00 36.11 kg/m2 Universi ty of [facility] Systolic blood 2019-08-13 17:58:00 125 mm[Hg] Univer sity of pressure [facility] Branch Diastolic blood 2019-08-13 17:58:00 82 mm[Hg] Unive rsity of pressure [facility] Heart rate 2019-08-13 17:58:00 84 /min Universi ty of [facility] Body temperature 2019-08-13 17:58:00 36.78 Rose Univ ersity of [facility] Branch Respiratory rate 2019-08-13 17:58:00 19 /min Univ ersity of [facility] Body height 2019-08-13 17:58:00 152.4 cm Universi ty of [facility] Body weight 2019-08-13 17:58:00 98.431 kg Universi ty of [facility] Branch BMI 2019-08-13 17:58:00 42.38 kg/m2 Universi ty of [facility] Oxygen saturation in 2019-08-13 17:58:00 96 /min University of Arterial blood by [facility] Pulse oximetry Branch Systolic blood 2019-08-13 17:58:00 125 mm[Hg] Univer sity of pressure [facility] Diastolic blood 2019-08-13 17:58:00 82 mm[Hg] Unive rsity of pressure [facility] Heart rate 2019-08-13 17:58:00 84 /min [facility] Body temperature 2019-08-13 17:58:00 36.78 Rose [facility] Respiratory rate 2019-08-13 17:58:00 19 /min [facility] Body height 2019-08-13 17:58:00 152.4 cm [facility] Body weight 2019-08-13 17:58:00 98.431 kg [facility] BMI 2019-08-13 17:58:00 42.38 kg/m2 [facility] Oxygen saturation in 2019-08-13 17:58:00 96 /min [facility] Arterial blood by [facility] Pulse oximetry [place] Procedures Procedure Date / Time Performing Clinician Source Performed CT HEAD WO CONTRAST 2020-08-07 05:05:01 Rose [facility] CONSENT/REFUSAL FOR 2020-08-07 04:12:40 Doctor Unassigned, No Un [facility] DIAGNOSIS AND TREATMENT Name [facility] ADC,CLC OR LCC ONLY - 2019-09-27 19:10:00 Charity Prince Un [facility] INFLUENZA A & B DIRECT Medical B ranch ANTIGEN URINALYSIS 2019-09-27 18:38:00 Charity Prince [facility] COMP. METABOLIC PANEL 2019-09-27 18:35:00 Charity [facility] [place] [id number] CBC WITH DIFFERENTIAL 2019-09-27 18:35:00 [facility]W 2019-09-27 18:04:29 Charity Prince [facility] EKG-12 LEAD 2019-09-27 17:25:47 Charity Prince [facility] Medical Branch NOTICE OF PRIVACY 2019-09-27 15:34:10 Doctor Unassigned, No Univ [facility] [place] [facility]ACT[facility] Name Medical Branch CONSENT/REFUSAL FOR 2019-09-27 15:33:44 Doctor Unassigned, No Un [facility] [place] DIAGNOSIS AND TREATMENT Name Medical Branch NOTICE OF PRIVACY 2019-08-13 17:46:11 Doctor Unassigned, No Univ [facility] [place] [facility] Name Medical Branch CONSENT/REFUSAL FOR 2019-08-13 17:45:57 Doctor Unassigned, No Un [facility] [place] DIAGNOSIS AND TREATMENT Name Medical Branch Plan of Care Planned Activity Planned Date Details Comments Source Future Scheduled 2020-03-[address] [facility] Test 00:00:00 (#1) [code = [facility] INFLUENZA VACCINE (#1)] Future Scheduled [address] [facility] Test 00:00:00 (procedure) [code = [facility] 37728168] Future Scheduled [address] [facility] - Test 00:00:00 malignant neoplasm Medical C enter of cervix (procedure) [code = 309694346] Encounters Start End Encounter Admission Attending Care Care Encounter Source Date/Time Date/Time Type Type Clinicians Facility Department ID 2021-06-05 2021-06-05 [id number] 2021-04-15 2021-04-15 [id number] 2021-04-12 2021-04-12 [facility] [id number] 2021-03-21 2021-03-21 [facility] [id number] 2021-03-08 2021-03-08 [id number] 2021-03-05 2021-03-05 Outpatient [facility] [id number] [facility] 2020-09-20 2020-09-20 Outpatient [facility] [id number] [facility] 2020-08-06 2020-08-07 Emergency [place] [facility] [id number] Univers 22:31:00 00:09:00 , Rose Varma [id number] i ty of [facility] [id number] [facility] [id number] [facility] 084 Branch 2020-08-06 2020-08-06 Emergency X [facility] ERT [id number] Univers 22:31:00 22:31:00 ity of [facility] 2020-08-06 2020-08-06 Orders Doctor CHAN [id number] Univers 00:00:00 00:00:00 Only Unassigned, HARMAN [id number] ity of [place] [facility] [id number] [facility] [id number] [facility] 009 Branch 2020-04-19 2020-04-19 Outpatient [facility] [id number] [facility] 2020-03-09 2020-03-09 [facility] [id number] 15:12:00 15:12:00 t [facility] Family Medicine l Medicine Outpati ent Clinics 2020-03-05 2020-03-05 [facility] [id number] 12:02:00 12:02:00 t [facility] Family Medicine l Medicine Outpati ent Clinics 2020-01-02 2020-01-02 [facility] [id number] 11:40:00 11:40:00 [facility] Medicine l Medicine Outpati ent Clinics 2019-09-27 2019-09-27 Emergency X CARLIE [facility] ERT [id number] Univers 11:40:39 18:09:00 FOLUSHO ity of [facility] 2019-09-27 2019-09-27 [facility] [id number] Univers 11:40:39 18:09:00 Foldeniso Dalila [place] [id number] ity of [place] [id number] [facility] [id number] [address] 2019-09-27 2019-09-27 [facility] [id number] 11:40:39 18:09:00 Foldeniso F [place] [id number] [place] [id number] [place] [id number] [facility] 2019-09-27 2019-09-27 Orders Doctor DUSTIN [id number] Univers 00:00:00 00:00:00 Only Unassigned, HARMAN [id number] ity of [place] [facility] [id number] [facility] [id number] [address] 2019-09-27 2019-09-27 Orders Doctor DUSTIN [id number] 00:00:00 00:00:00 Only Unassigned, HARMAN [id number] [place] [facility] [id number] 2019-08-24 2019-08-24 [facility] [id number] 10:44:00 10:44:00 [facility] Family Medicine Medicine Outpati ent Clinics 2019-08-13 2019-08-13 [facility] [id number] Univers 11:49:00 12:46:00 Ramya S [place] [id number] i ty of [place] [id number] [facility] [id number] [address] 2019-08-13 2019-08-13 [facility] [id number] 11:49:00 12:46:00 Ramya S [place] [id number] [place] [id number] [place] [id number] 2019-08-13 2019-08-13 Orders Doctor DUSTIN [id number] 00:00:00 00:00:00 Only Unassigned, HARMAN [id number] [place] [facility] [id number] 2019-08-13 2019-08-13 Orders Doctor DUSTIN [id number] Univers 00:00:00 00:00:00 Only Unassigned, HARMAN [id number] ity of [place] [facility] [id number] [facility] as [id number] [address] 2019-08-11 2019-08-11 [facility] [id number] 14:00:00 14:00:00 [facility] Medicine Outpati ent Clinics 2019-08-04 2019-08-04 [facility] [id number] 10:42:00 10:42:00 [facility] Medicine Outpati ent Clinics 2019-04-14 2019-04-14 [facility] [id number] 14:40:00 14:40:00 [facility] Medicine Outpati ent Clinics 2019-04-11 2019-04-11 [facility] [id number] [facility] 11:12:00 11:12:00 [employer] [facility] Medicine Outpati ent Clinics 2019-03-03 2019-03-03 [facility] [id number] [facility] 16:39:00 16:39:00 [facility] Medicine Outpati ent Clinics 2019-02-03 2019-02-03 [facility] [id number] [facility] 11:00:00 11:00:00 [facility] Medicine Outpati ent Clinics 2018-09-17 2018-09-17 [facility] [id number] [facility] 12:26:00 12:26:00 t [facility] Medicine l Medicine Outpati ent Clinics 2018-09-09 2018-09-09 [facility] [id number] [facility] 13:30:00 13:30:00 t [facility] Medicine l Medicine Outpati ent Clinics 2018-04-23 2018-04-23 [facility] [id number] 10:00:00 10:00:00 t [facility] Medicine l Medicine Outpati ent Clinics 2018-04-22 2018-04-22 [facility] [id number] 14:14:00 14:14:00 t [facility] l Medicine Outpati ent Clinics 2018-04-20 2018-04-20 [facility] [id number] 10:02:00 10:02:00 t [facility] Medicine l Medicine Outpati ent Clinics 2018-04-19 2018-04-19 [facility] [id number] 16:33:00 16:33:00 t [facility] Medicine Medicine Outpati ent Clinics 2018-04-16 2018-04-16 [facility] [id number] 09:30:00 09:30:00 t [facility] Medicine l Medicine Outpati ent Clinics 2018-02-19 2018-02-19 [facility] [id number] 10:45:00 10:45:00 t [facility] Medicine l Medicine Outpati ent Clinics 2017-12-07 2017-12-07 [facility] [id number] 08:36:00 08:36:00 [facility] Clinic l Outpati ent Clinics 2017-11-13 2017-11-13 [facility] [id number] 10:30:00 10:30:00 t [facility] Medicine Medicine Outpati ent Clinics Results Test Description Test Time Test Comments Results Result Sourc e Comments CT HEAD WO 2020-07-20 Impression: No CT [facility] of CONTRAST 9 evidence for acute [facility] 05:20:12 intracranial Branch abnormality. RL: [id number] AFC: [id number] Ordering physician: ROSE RANDOLPH Indication: Acute headache Comparison: None Technique: Axial images of the head were performed without administrationof intravenous contrast material. CT scan was performed according to ALARA(as low as reasonably achievable) principles. Findings: No acute intracranial abnormality is appreciated. Specifically,there is no acute intracranial hemorrhage, mass, mass effect, extra-axialfluid collection or hydrocephalus. The visualized paranasal sinuses areclear. No middle ear or mastoid effusion is appreciated. There is nocalvarial fracture. [facility], Radiant Results Inft User - 08/06/2020 11:21 PM CSTOrdering physician: ROSE RANDOLPHIndication : Acute headacheComparison: NoneTechnique: Axial images of the head were performed without administrationof intravenous contrast material. CT scan was performed according to ALARA(as low as reasonably achievable) principles.Findings: No acute intracranial abnormality is appreciated. Specifically,there is no acute intracranial hemorrhage, mass, mass effect, extra-axialfluid collection or hydrocephalus. The visualized paranasal sinuses areclear. No middle ear or mastoid effusion is appreciated. There is nocalvarial fracture.IMPRESSIONIm pression:No CT evidence for acute intracranial abnormality.RL: [id number]: [id number] signed by Katherine Trivedi MD, PhD at 08/06/2020 11:20 PM ADC,CLC OR LCC ONLY - INFLUENZA A & B DIRECT ANTIGEN 2019-09 20:12:00 Test Item Value Reference Range Interpretation Comme nts Influenza A (test code = 25826-2) Negative Negative Influenza B (test code = 38688-0) Negative Negative Lab Interpretation (test code = 42540-3) Normal [facility] [id number] 19:29:00 Test Item Value Reference Range Interpretation Comments APPEARANCE (test code = Hazy Clear A 9790602661) COLOR (test code = Yellow Yellow 0017438374) PH (test code = 4.8-8.0 2708919294) SP GRAVITY (test code = 1.003-1.030 8137436525) GLU U QUAL (test code = Normal Normal 3199192138) BLOOD (test code = Negative Negative 5632850193) KETONES (test code = 5 mg/dL Negative A 7703695546) PROTEIN (test code = Negative Negative 2887-8) UROBILIN (test code = 2.0 mg/dL Normal A 6174749525) BILIRUBIN (test code = Negative Negative 0694488780) NITRITE (test code = Negative Negative 3051615966) LEUK GELY (test code = Negative Negative 7938359155) RBC/HPF (test code = See_Comment [Autom ated message] 9432600166) The system [employer] generated this result transmit yani reference range : 0 - 3 HPF. The refe rence range was not u sed to interpret th is result as normal/abnormal . WBC/HPF (test code = See_Comment [Autom ated message] 0066968442) The system [employer] generated this result transmit yani reference range : 0 - 5 HPF. The refe rence range was not u sed to interpret th is result as normal/abnormal . BACTERIA (test code = Negative Negative 0843146405) MUCOUS (test code = Marked Negative LPF A 6370582801) SQ EPITH (test code = HPF 3256887604) Lab Interpretation (test Abnormal code = 22521-6) [facility]. METABOLIC PANEL (86949)2019-09-27 19:05:00 Test Item Value Reference Range Interpretation Comments NA (test code = 142 mmol/L 135-145 6540266363) K (test code = 3.6 mmol/L 3.5-5 8778220192) CL (test code = 104 mmol/L 98-108 7704423647) CO2 TOTAL (test code = 26 mmol/L 23-31 0940323982) AGAP (test code = 2-16 1232018113) BUN (test code = 13 mg/dL 7-23 9022824120) GLUCOSE (test code = 121 mg/dL 70-110 H 6083967490) CREATININE (test code = 0.63 mg/dL 0.5-1.04 9948585665) TOTAL BILI (test code = 0.4 mg/dL 0.1-1.2 3214102337) CALCIUM (test code = 9.2 mg/dL 8.6-10.6 8120672913) T PROTEIN (test code = 7.8 g/dL 6.3-8.2 9500073200) ALBUMIN (test code = 4.7 g/dL 3.5-5 6462096087) ALK PHOS (test code = 99 U/L 34-122 7748381516) ALTv (test code = 28 U/L 5-35 1742-6) AST(SGOT) (test code = 35 U/L 13-40 3729361748) eGFR Calculation mL/min/1.73m2 (Non-) (test code = 4426241709) eGFR Calculation mL/min/1.73m2 () (test code = 0659887474) JEANETTE (test code = JEANETTE) Association of Glomerular Filtration Rate (GFR) and Staging of Kidney Disease* + --+ --+ ------+| GFR (mL/min/1.73 m2) ?| With Kidney Damage ?| ?Without Kidney Damage+ --------+ --------+ +| ?>90 ?| ?Stage one ?| ? Normal ?+ ---+ ---+ -------+| ?60-89 ?| ?Stage two ?| ? Decreased GFR ? + --+ --+ ------+| ?30-59 ?| ?Stage three ?| ? Stage three ? + --+ --+ ------+| ?15-29 ?| ?Stage four ? | ? Stage four ?+ ---+ ---+ -------+| ?<15 (or dialysis) ? ?| ?Stage five ? | ? Stage five ?+ ---+ ---+ -------+ *Each stage assumes the associated GFR level has been in effect for at least three months. ?Stages 1 to 5, with or without kidney disease, indicate chronic kidney disease. Notes: Determination of stages one and two (with eGFR >59mL/min/1.73 m2) requires estimation of kidney damage for at least three months as defined by structural or functional abnormalities of the kidney, manifested by either:Pathological abnormalities or Markers of kidney damage (including abnormalities in the composition of the blood or urine or abnormalities in imaging tests). Lab Interpretation Abnormal (test code = 52788-0) [facility] WITH [id number] 18:55:00 Test Item Value Reference Range Interpretation Comments WBC (test code = See_Comment [Automated message] 6690-2) The system [employer] generated this result transmitted ref erence range: 4.30 - 1 1.10 10*3/?L. The re ference range was not u sed to interpret this result as normal/abnor mal. RBC (test code = See_Comment [Automated message] 789-8) The system [employer] generated this result transmitted ref erence range: 3.93 - 5 .25 10*6/?L. The re ference range was not u sed to interpret this result as normal/abnor mal. HGB (test code = 13.3 g/dL 11.6-15 718-7) HCT (test code = 40.4 % 35.7-45.2 4544-3) MCV (test code = 91.4 fL 80.6-95.5 787-2) MCH (test code = 30.1 pg 25.9-32.8 785-6) MCHC (test code = 32.9 g/dL 31.6-35.1 786-4) RDW-SD (test code 43.2 fL 39-49.9 = 25781-3) RDW-CV (test code 12.8 % 12-15.5 = 788-0) PLT (test code = See_Comment [Automated message] 777-3) The system [employer] generated this result transmitted ref erence range: 166 - 35 8 10*3/?L. The re ference range was not u sed to interpret this result as normal/abnor mal. MPV (test code = 9.5 fL 9.5-12.9 77663-5) NRBC/100 WBC (test See_Comment [Automat ed message] code = 2081595337) The [employer] which generated this result transmitted ref erence range: 0.0 - 10 .0 /100 WBCs. The refer ence range was not u sed to interpret this result as normal/abnor mal. NRBC x10^3 (test <0.01 See_Comment [Automated message] code = 7691824545) The syste m which generated this result transmitted ref erence range: 10*3/?L. The reference range was not used to interpr et this result as normal/abnormal . GRAN MAT (NEUT) % 45.8 % (test code = 770-8) IMM GRAN % (test 0.20 % code = 0464115141) LYMPH % (test code 41.3 % = 736-9) MONO % (test code 9.1 % = 5905-5) EOS % (test code = 3.0 % 713-8) BASO % (test code 0.6 % = 706-2) GRAN MAT 2.12 10*3/uL 1.88-7.09 x10^3(ANC) (test code = 7080260911) IMM GRAN x10^3 <0.03 0-0.06 (test code = 5551938596) LYMPH x10^3 (test 1.91 10*3/uL 1.32-3.29 code = 731-0) MONO x10^3 (test 0.42 10*3/uL 0.33-0.92 code = 742-7) EOS x10^3 (test 0.14 10*3/uL 0.03-0.39 code = 711-2) BASO x10^3 (test 0.03 10*3/uL 0.01-0.07 code = 704-7) [facility] 2 [id number] 18:10:04HISTORY: Cough with fever. TECHNIQUE: PA and lateral views of the chest are obtained. Comparison madewith 04/07/2015 study. FINDINGS: No acute pneumonia detected. No pneumothorax or pleural effusionor pulmonary congestion. Cardiothoracic ratio of approximately 11.5/30 cmis consistent with normal cardiac size. CONCLUSIONS: No signs of acute cardiopulmonary disease.[facility], Radiant Results Inft User - 09/26 1:11 PM CDTHISTORY: Cough with fever.TECHNIQUE: PA and lateral views of the chest are obtained. Comparison madewith 04/07/2015 study.FINDINGS: No acute pneumonia detected. No pneumothorax or pleural effusionor pulmonary congestion. Cardiothoracic ratio of approximately 11.5/30 cmis consistent with normal cardiac size.CONCLUSIONS: No signs of acute cardiopulmonary disease.[facility], [id number] 15:27:00 Test Item Value Reference Range Interpretation Comments TEST URINE (BEAKER) (test Negative code = 583) URINALYSIS WITH MICROSCOPIC IF [id number] 14:55:00 Test Item Value Reference Range Interpretation [...] = 2795) RAD, CHEST, 1 VIEW, NON [id number] 13:46:00Reason for exam:->chest painIs the patient ?->UnknownShould this be performed at the [facility]?->YesFINAL REPORT Chest, AP view. History: Chest pain. Comparison: None available. Discussion: The cardiomediastinal silhouette and pulmonary vasculature are within normal limits. The lungs are clear without evidence of consolidation or effusion. There are no acute osseous abnormalities. The soft tissues are unremarkable. IMPRESSION: No acute cardiopulmonary abnormality. Signed: Kirstie Ozuna MDReport Verified Date/Time: 10/15/2018 13:46:07 Reading Location: [facility] Women B-TYPE NATRIURETIC FACTOR (BNP)2018-10-15 13:45:00 Test Item Value Reference Range Interpretation Comments B-TYPE NATRIURETIC PEPTIDE (BEAKER) < pg/mL 0-100 (test code = 700) TROPONIN [id number] 13:42:00 Test Item Value Reference Range Interpretation [...] failure, acidosis, acute neurological disease, and persistent tachyarrhythmia.[id number] 13:36:00 Test Item Value Reference Range Interpretation Comments MAGNESIUM (BEAKER) (test code = 1.9 mg/dL 1.6-2.6 627) COMPREHENSIVE METABOLIC [id number] 13:36:00 Test Item Value Reference Range Interpretation [...] ATED GFR. CBC W/PLT COUNT & AUTO [id number] 13:09:00 Test Item Value Reference Range Interpretation [...] % 0-1 PERCENT (BEAKER) (test code = 2801)"
--- NOTE | 2021-06-17 20:45 | ER ---
Nurse's Notes [facility] Name: Britt Bower Age: 46 yrs Sex: Female : 1975 Arrival Date: 06/17/2021 Time: 20:26 Bed Waiting Private MD: Diagnosis: Acute sinusitis, unspecified Presentation: 06/17 20:39 Chief complaint: Patient states: Yesterday I began having really bad congestion with a ld1 lot of mucos. Coronavirus screen: Client presents with at least one sign or symptom that may indicate coronavirus-19. Standard/surgical mask placed on the client. Ebola Screen: No symptoms or risks identified at this time. Initial Sepsis Screen: Does the patient meet any 2 criteria? No. Patient's initial sepsis screen is negative. Does the patient have a suspected source of infection? No. Patient's initial sepsis screen is negative. Risk Assessment: Do you want to hurt yourself or someone else? Patient reports no desire to harm self or others. Onset of symptoms was June 17, 2021. 20:39 Method Of Arrival: Ambulatory ld1 20:39 Acuity: DUKE 4 ld1 Triage Assessment: 20:42 General: Appears in no apparent distress. comfortable, Behavior is calm, cooperative, ld1 appropriate for age. Pain: Denies pain. EENT: Reports nasal congestion nasal discharge. Neuro: Level of Consciousness is awake, alert, obeys commands, Oriented to person, place, time, situation, Appropriate for age. Cardiovascular: Capillary refill < 3 seconds Patient's skin is warm and dry. Respiratory: Airway is patent Respiratory effort is even, unlabored, Respiratory pattern is regular, symmetrical. GI: Abdomen is round non-distended. : No signs and/or symptoms were reported regarding the genitourinary system. Derm: No signs and/or symptoms reported regarding the dermatologic system. Musculoskeletal: No signs and/or symptoms reported regarding the musculoskeletal system. 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 LMP N/A - Hysterectomy ld1 Historical: - Allergies: 20:42 Amoxicillin; ld1 20:42 Aspirin; ld1 20:42 Coconut; ld1 20:42 diazepam; ld1 20:42 Iodine; ld1 20:42 Morphine; ld1 20:42 Ondansetron HCl; ld1 20:42 PENICILLINS; ld1 20:42 Piperacillin Sodium; ld1 20:42 shrimp; ld1 20:42 tazobactam sodium; ld1 20:42 Zofran; ld1 - Home Meds: 20:42 gabapentin 600 mg Oral tab 1 tab 3 times per day for Neuropathic Pain [Active]; Humulin ld1 70/30 100 unit/mL (70-30) Sub-Q tab for Type 2 Diabetes Mellitus [Active]; levetiracetam 500 mg Oral tab 1 tab 2 times per day for Tonic-Clonic Epilepsy Treatment Adjunct [Active]; lisinopril 10 mg Oral tab 1 tab nightly [Active]; lisinopril-hydrochlorothiazide 20-25 mg Oral tab once daily for Hypertension [Active]; - PMHx: 20:42 Diabetes - IDDM; Asthma; epilepsy; history of stroke; Hypertension; neuropathy; ld1 - PSHx: 20:42 None; ld1 - Immunization history:: Adult Immunizations up to date. - Social history:: Smoking status: Patient denies any tobacco usage or history of. Patient/guardian denies using alcohol. Screenin:46 Abuse screen: Denies threats or abuse. Denies injuries from another. Nutritional ld1 screening: No deficits noted. Tuberculosis screening: No symptoms or risk factors identified. Fall Risk None identified. Assessment: 20:46 Reassessment: See triage assessment. ld1 Vital Signs: 20:39 BP 106 / 62; Pulse 91; Resp 18; Temp 97.2(TE); Pulse Ox 98% on R/A; Weight 95.25 kg; ld1 Height 5 ft. 0 in. (152.40 cm); Pain 0/10; 20:39 Body Mass Index 41.01 (95.25 kg, 152.40 cm) ld1 ED Course: 20:26 Patient arrived in ED. mr 20:28 Ny Johnson [facility]-C [facility] kb 20:28 Mono Jordan MD is Attending Physician. kb 20:42 Triage completed. ld1 20:42 Arm band placed on right wrist. ld1 20:46 Patient has correct armband on for positive identification. Placed in gown. Call light ld1 in reach. school lunch monitor on. Pulse ox on. NIBP on. 20:46 No provider procedures requiring assistance completed. Patient did not have IV access ld1 during this emergency room visit. Administered Medications: No medications were administered Outcome: 20:44 Discharge ordered by . janneth 20:46 Discharged to home ambulatory. ld1 20:46 Condition: stable 20:46 Discharge instructions given to patient, Instructed on discharge instructions, follow up and referral plans. Demonstrated understanding of instructions, follow-up care. 20:47 Patient left the ED. ld1 Signatures: Ny Johnson, YI-C ROLL OPERATOR-Ary Meraz mr Bela Echavarria, RN RN ld1
--- NOTE | 2021-06-17 20:45 | EDPHYS ---
Physician Documentation [facility] Name: Britt Bower Age: 46 yrs Sex: Female : 1975 Arrival Date: 06/17/2021 Time: 20:26 Bed Waiting Private MD: ED Physician Mono Jordan HPI: 06/17 21:54 This 46 yrs old Female presents to ER via Ambulatory with complaints of Sinus kb Congestion. 21:54 The patient or guardian reports sinus congestion. Onset: The symptoms/episode kb began/occurred yesterday. Severity of symptoms: At their worst the symptoms were mild, moderate, in the emergency department the symptoms are unchanged. Modifying factors: The symptoms are alleviated by nothing, the symptoms are aggravated by nothing. Associated signs and symptoms: The patient has no apparent associated signs or symptoms. The patient has not experienced similar symptoms in the past. The patient has not recently seen a physician. Pt reports sinus congestion since yesterday. Has not taken any medication for symptosm. 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 LMP N/A - Hysterectomy ld1 Historical: - Allergies: 20:42 Amoxicillin; ld1 20:42 Aspirin; ld1 20:42 Coconut; ld1 20:42 diazepam; ld1 20:42 Iodine; ld1 20:42 Morphine; ld1 20:42 Ondansetron HCl; ld1 20:42 PENICILLINS; ld1 20:42 Piperacillin Sodium; ld1 20:42 shrimp; ld1 20:42 tazobactam sodium; ld1 20:42 Zofran; ld1 - Home Meds: 20:42 gabapentin 600 mg Oral tab 1 tab 3 times per day for Neuropathic Pain [Active]; Humulin ld1 70/30 100 unit/mL (70-30) Sub-Q tab for Type 2 Diabetes Mellitus [Active]; levetiracetam 500 mg Oral tab 1 tab 2 times per day for Tonic-Clonic Epilepsy Treatment Adjunct [Active]; lisinopril 10 mg Oral tab 1 tab nightly [Active]; lisinopril-hydrochlorothiazide 20-25 mg Oral tab once daily for Hypertension [Active]; - PMHx: 20:42 Diabetes - IDDM; Asthma; epilepsy; history of stroke; Hypertension; neuropathy; ld1 - PSHx: 20:42 None; ld1 - Immunization history:: Adult Immunizations up to date. - Social history:: Smoking status: Patient denies any tobacco usage or history of. Patient/guardian denies using alcohol. ROS: 21:54 Constitutional: Negative for fever, chills, and weight loss. kb 21:54 ENT: Positive for sinus congestion. 21:54 All other systems are negative. Exam: 21:54 Constitutional: This is a well developed, well nourished patient who is awake, alert, kb and in no acute distress. Head/Face: Normocephalic, atraumatic. ENT: Moist Mucous membranes Cardiovascular: Regular rate and rhythm with a normal S1 and S2. No gallops, murmurs, or rubs. No pulse deficits. Respiratory: Respirations even and unlabored. No increased work of breathing, no retractions or nasal flaring. Skin: Warm, dry with normal turgor. Normal color. MS/ Extremity: Pulses equal, no cyanosis. Neurovascular intact. Full, normal range of motion. Neuro: Awake and alert, GCS 15, oriented to person, place, time, and situation. Moves all extremities. Normal gait. Psych: Awake, alert, with orientation to person, place and time. Behavior, mood, and affect are within normal limits. Vital Signs: 20:39 BP 106 / 62; Pulse 91; Resp 18; Temp 97.2(TE); Pulse Ox 98% on R/A; Weight 95.25 kg; ld1 Height 5 ft. 0 in. (152.40 cm); Pain 0/10; 20:39 Body Mass Index 41.01 (95.25 kg, 152.40 cm) ld1 MDM: 20:43 Patient medically screened. kb 21:54 Data reviewed: vital signs, nurses notes. Data interpreted: Pulse oximetry: on room air kb is 98 %. Interpretation: normal. Counseling: I had a detailed discussion with the patient and/or guardian regarding: the historical points, exam findings, and any diagnostic results supporting the discharge/admit diagnosis, the need for outpatient follow up, a family practitioner, to return to the emergency department if symptoms worsen or persist or if there are any questions or concerns that arise at home. Administered Medications: No medications were administered Disposition: 22:41 Co-signature as Attending Physician, Mono Jordan MD. rn 22:41 I agree with the assessment and plan of care. Attestation: The patient's history, exam rn findings, diagnostics, and a summary of any interventions or procedures was reviewed in detail with Ny ALFARO. Disposition Summary: 06/17/21 20:44 Discharge Ordered Location: Home Condition: Stable kb Diagnosis - Acute sinusitis, unspecified kb Followup: kb - With: Emergency Department - When: As needed - Reason: Worsening of condition Followup: kb - With: Private Physician - When: 2 - 3 days - Reason: Recheck today's complaints, Continuance of care, Re-evaluation by your physician Discharge Instructions: - Discharge Summary Sheet kb - Sinusitis, Adult, [facility] kb Forms: - Medication Reconciliation Form kb - Thank You Letter kb - Antibiotic Education kb - Prescription Opioid Use janneth Signatures: Ny Johnson FNP-C FNP-Mono Moran MD MD rn Bela Echavarria RN RN ld1
[2021-06-17 20:57] VITALS: BP 106/62; TEMP 97.2; O2SAT 98
== END 2021-06-17 20:47 | disposition home or self-care (01) ==
LOC: ER 20:21
DX: J01.90 Acute sinusitis, unspecified (principal); Z88.1 Allergy status to other antibiotic agents; Z88.0 Allergy status to penicillin; Z91.09 Other allergy status, other than to drugs and biological substances; Z91.013 Allergy to seafood; Z91.018 Allergy to other foods; Z88.8 Allergy status to other drugs, medicaments and biological substances; E11.9 Type 2 diabetes mellitus without complications; J45.909 Unspecified asthma, uncomplicated; I10 Essential (primary) hypertension
CPT/HCPCS: 99284